=== PATIENT | female | born 1945 | race Caucasian/White ===

== ENCOUNTER → 2017-06-10 14:01 | Outpatient (CLI) | payer MEDICARE, SELFPAY ==
[2017-06-10 15:49] LABS: Absolute Lymphocyte Count 1.31 X10^3/ul (0.83-4.51); Basophil# 0.02 X10^3/uL; Basophil% 0.2 % (0-1); Eosinophil# 0.45 X10^3/uL; Eosinophils% 3.8 % (0-5); Hematocrit 39.6 % (37-47); Hemoglobin 12.9 g/dl (12.0-15.0); Lymphocyte # 1.31 X10^3/ul (4.0); Lymphocyte % 11.2 % (19-41); Mean Corp Hgb Conc 32.6 g/gl (32-36); Mean Corpuscular Hgb 29.7 pg (27.0-32.0); Mean Platelet Vol. 10.8 fl (6.2-12.0); Monocyte# 0.86 X10^3/uL; Monocyte% 7.4 % (0-10); Neutrophil # 9.03 X10^3/uL (2.7-7.7); Neutrophil % 77.1 % (47-70); Platelet Count 271 K/mm3 (150-450); RBC Distribution Width CV 14.5 % (11.6-14.6); RBC Distribution Width SD 47.6 fl (35.1-43.9); Red Blood Count 4.35 M/mm3 (4.2-5.4); White Blood Count 11.7 K/mm3 (4.4-11.0)
[2017-06-10 15:52] LABS: POSITIVE COUNT NO; POSITIVE DIFFERENTIAL NO; POSITIVE MORPHOLOGY NO
[2017-06-10 15:55] LABS: Erythrocyte Sedimentation Rate 38 mm/hr (0-30)
[2017-06-10 16:15] LABS: T3 Total - Triiodothyronine 0.82 ng/mL (0.6-1.81)
[2017-06-10 16:19] LABS: ALB/GLOB Ratio 0.8 RATIO (0.9-2.4); AST(SGOT) 18 U/L (15-37); Alanine Aminotransfer ALT/SGPT 28 U/L (13-56); Albumin, Serum 3.1 g/dL (3.2-5.0); Alkaline Phosphatase 57 U/L (45-117); Anion Gap 10 (5-15); BUN 18 mg/dL (7-18); BUN/Creat Ratio 19.3 RATIO (10-20); CRP 6.35 mg/L (0.0-3.0); Calcium,Total 8.9 mg/dL (8.5-10.1); Chloride 102 mmol/L (98-107); Creatinine, Serum 0.93 mg/dL (0.55-1.02); EST Glomerular Filtration Rate 63 mL/min (>60); Est Glom Filt Rate - Afr Amer 76 mL/min (>60); Globulin 4.1 g/dL (2.2-4.2); Glucose 157 mg/dL (74-106); Potassium 3.7 mmol/L (3.5-5.1); Protein, Total 7.2 g/dL (6.4-8.2); Sodium Level 140 mmol/L (136-145); T4 Free Direct 1.62 ng/dL (0.76-1.46); Thyroid Stim Hormone (TSH) 0.91 uIU/mL (0.358-3.74)
== END ==
PROVIDERS: Family Provider Family Medicine; PCP Family Medicine; Visit Provider Family Medicine
DX: E03.9 Hypothyroidism, unspecified (principal); M79.1 Myalgia; R53.81 Other malaise
CPT/HCPCS: 36415; 80053; 84439; 84443; 84480; 85025; 85652; 86140

== ENCOUNTER → 2017-06-25 10:49 | Outpatient (CLI) | payer MEDICARE, SELFPAY ==
--- NOTE | 2017-06-25 13:08 | RAD_ITS ---
STUDY: X-RAY - LUMBAR SPINE REASON FOR EXAM: Female, 72 years old. Weakness in back and legs for a few weeks. TECHNIQUE: 5 view(s) of the lumbar spine were obtained. COMPARISON: None FINDINGS: Exaggerated lumbar lordosis slight dextroscoliosis. Mild retrolisthesis of L2. Normal vertebral body height. Advanced disc narrowing and spondylitic endplate changes at L1-2 and L2-3. Mild degenerative disc changes at L3-4 and L4-5. Degenerative facet arthrosis at most levels bilaterally. Atherosclerotic vascular calcifications. RAD/L/S Spine Min 4 Views IMPRESSION: Exaggerated lower lumbar lordosis with a degenerative mild retrolisthesis of L2. Negative for fracture deformity. Advanced degenerative disc narrowing and spondylitic endplate changes at L1-2 and L2-3. Mild to moderate disc changes at L3-4 and L4-5. Degenerative facet joint changes at most lumbar levels. Electronically Signed: Kaylee Blevins MD at 23:11 EST , Service support ,
== END ==
PROVIDERS: Family Provider Family Medicine; PCP Family Medicine; Visit Provider Family Medicine
DX: M54.5 Low back pain (principal)
CPT/HCPCS: 72110

== ENCOUNTER → 2017-06-29 13:11 | Outpatient (CLI) | payer MEDICARE, SELFPAY | PROVIDERS: Family Provider Family Medicine; PCP Family Medicine; Visit Provider Family Medicine | DX: R30.0 Dysuria (principal) | CPT/HCPCS: 87086; 87088 ==

== ENCOUNTER → 2017-07-22 17:27 | Outpatient (CLI) | payer MEDICARE, SELFPAY ==
--- NOTE | 2017-07-22 17:43 | MRI_ITS ---
STUDY: MRI LUMBAR SPINE WITHOUT CONTRAST REASON FOR EXAM: Female, 72 years old. SHARP LOW BACK PAIN, BILATERAL LEG WEAKNESS AND THROBBING TECHNIQUE: Standardized fat and water weighted pulse sequences were obtained in the sagittal and axial planes. COMPARISON: None FINDINGS: T12-L1: Normal endplates. Normal disc height, hydration and morphology. Normal bilateral facet joints. Normal central canal and bilateral lateral recesses. Normal bilateral intervertebral neural foramina. Normal lumbar lordosis. There is no substantial scoliosis. Normal conus medullaris that terminates at the L1 level. L1-2: Endplate spondylosis. Decreased disc height and moderate circumferential disc bulge. Degenerative changes of the bilateral facet joints. Moderate narrowing of the central canal and mild narrowing of the bilateral intervertebral neural foramina. L2-3: Endplate spondylosis. Decreased disc height and moderate circumferential disc bulge. Degenerative changes of the bilateral facet joints. Moderate narrowing of the central canal and mild narrowing of the bilateral intervertebral neural foramina. L3-4: Endplate spondylosis. Decreased disc height and moderate circumferential disc bulge. Degenerative changes of the bilateral facet joints. Moderate narrowing of the central canal and mild narrowing of the bilateral intervertebral neural foramina. L4-5: Endplate spondylosis. Decreased disc height and moderate circumferential disc bulge. Degenerative changes of the bilateral facet joints. Moderate narrowing of the central canal and mild narrowing of the bilateral intervertebral neural foramina. L5-S1: Normal endplates. Normal disc height, hydration and morphology. Degenerative changes of the bilateral facet joints. Mild narrowing of the central canal and bilateral intervertebral neural foramina. Normal visualized sacral ala. Normal visualized paraspinous soft tissue structures. MRI/Spine Lumbar (Routine) IMPRESSION: Multilevel degenerative changes, as described above. Electronically Signed: Alannah Juarez MD at 6:43 EDT Tel , Service support ,
== END ==
PROVIDERS: Family Provider Family Medicine; PCP Family Medicine; Visit Provider Family Medicine
DX: M54.16 Radiculopathy, lumbar region (principal); R29.898 Other symptoms and signs involving the musculoskeletal system; M51.36 Other intervertebral disc degeneration, lumbar region
CPT/HCPCS: 72148

== ENCOUNTER → 2017-08-20 12:36 | Outpatient (CLI) | payer MEDICARE, SELFPAY ==
[2017-08-20 12:59] LABS: Absolute Lymphocyte Count 1.74 X10^3/ul (0.83-4.51); Absolute Neutrophil Count 8.9 X10^3/uL (2.0-7.7); Basophil# 0.04 X10^3/uL; Basophil% 0.3 % (0-1); Eosinophil# 1.29 X10^3/uL; Eosinophils% 10.1 % (0-5); Hematocrit 38.6 % (37-47); Hemoglobin 12.2 g/dl (12.0-15.0); Lymphocyte # 1.74 X10^3/ul (4.0); Lymphocyte % 13.6 % (19-41); Mean Corp Hgb Conc 31.6 g/gl (32-36); Mean Corpuscular Hgb 29.3 pg (27.0-32.0); Mean Corpuscular Volume 92.6 fL (81-99); Mean Platelet Vol. 9.9 fl (6.2-12.0); Monocyte# 0.79 X10^3/uL; Monocyte% 6.2 % (0-10); Neutrophil % 69.5 % (47-70); Platelet Count 363 K/mm3 (150-450); RBC Distribution Width CV 15.1 % (11.6-14.6); RBC Distribution Width SD 49.4 fl (35.1-43.9); Red Blood Count 4.17 M/mm3 (4.2-5.4); White Blood Count 12.8 K/mm3 (4.4-11.0)
[2017-08-20 13:09] LABS: POSITIVE COUNT NO; POSITIVE DIFFERENTIAL NO; POSITIVE MORPHOLOGY NO
[2017-08-20 13:26] LABS: ALB/GLOB Ratio 0.8 RATIO (0.9-2.4); AST(SGOT) 14 U/L (15-37); Alanine Aminotransfer ALT/SGPT 24 U/L (13-56); Albumin, Serum 3.1 g/dL (3.2-5.0); Alkaline Phosphatase 57 U/L (45-117); Anion Gap 6 (5-15); BUN 17 mg/dL (7-18); BUN/Creat Ratio 23.7 RATIO (10-20); Calcium,Total 9.1 mg/dL (8.5-10.1); Chloride 106 mmol/L (98-107); Creatinine, Serum 0.72 mg/dL (0.55-1.02); EST Glomerular Filtration Rate 85 mL/min (>60); Est Glom Filt Rate - Afr Amer 103 mL/min (>60); Globulin 3.8 g/dL (2.2-4.2); Glucose 163 mg/dL (74-106); Potassium 4.5 mmol/L (3.5-5.1); Protein, Total 6.9 g/dL (6.4-8.2); Sodium Level 142 mmol/L (136-145)
== END ==
PROVIDERS: Family Provider Family Medicine; PCP Family Medicine
DX: L30.9 Dermatitis, unspecified (principal); Z79.899 Other long term (current) drug therapy
CPT/HCPCS: 36415; 80053; 85025

== ENCOUNTER → 2017-09-10 15:27 | Outpatient (CLI) | payer MEDICARE, SELFPAY ==
[2017-09-10 16:30] LABS: Absolute Lymphocyte Count 1.24 X10^3/ul (0.83-4.51); Absolute Neutrophil Count 8.1 X10^3/uL (2.0-7.7); Basophil# 0.02 X10^3/uL; Basophil% 0.2 % (0-1); Eosinophil# 0.16 X10^3/uL; Eosinophils% 1.6 % (0-5); Hematocrit 38.1 % (37-47); Hemoglobin 12.2 g/dl (12.0-15.0); Lymphocyte # 1.24 X10^3/ul (4.0); Lymphocyte % 12.3 % (19-41); Mean Corpuscular Hgb 28.7 pg (27.0-32.0); Mean Corpuscular Volume 89.6 fL (81-99); Mean Platelet Vol. 10.5 fl (6.2-12.0); Monocyte# 0.59 X10^3/uL; Monocyte% 5.9 % (0-10); Neutrophil # 8.05 X10^3/uL (2.7-7.7); Neutrophil % 79.9 % (47-70); POSITIVE COUNT NO; POSITIVE DIFFERENTIAL NO; POSITIVE MORPHOLOGY NO; Platelet Count 318 K/mm3 (150-450); RBC Distribution Width CV 15.1 % (11.6-14.6); RBC Distribution Width SD 49.1 fl (35.1-43.9); Red Blood Count 4.25 M/mm3 (4.2-5.4); White Blood Count 10.1 K/mm3 (4.4-11.0)
[2017-09-10 16:54] LABS: ALB/GLOB Ratio 0.8 RATIO (0.9-2.4); AST(SGOT) 14 U/L (15-37); Alanine Aminotransfer ALT/SGPT 8 U/L (13-56); Albumin, Serum 3.2 g/dL (3.2-5.0); Alkaline Phosphatase 52 U/L (45-117); Anion Gap 11 (5-15); BUN 12 mg/dL (7-18); BUN/Creat Ratio 16.5 RATIO (10-20); Chloride 105 mmol/L (98-107); Creatinine, Serum 0.73 mg/dL (0.55-1.02); EST Glomerular Filtration Rate 84 mL/min (>60); Est Glom Filt Rate - Afr Amer 101 mL/min (>60); Globulin 3.8 g/dL (2.2-4.2); Glucose 181 mg/dL (74-106); Magnesium 1.6 mg/dL (1.6-2.6); Potassium 3.3 mmol/L (3.5-5.1); Sodium Level 141 mmol/L (136-145)
== END ==
PROVIDERS: Family Provider Family Medicine; PCP Family Medicine
DX: L12.0 Bullous pemphigoid (principal); Z79.899 Other long term (current) drug therapy
CPT/HCPCS: 36415; 80053; 83735; 85025

== ENCOUNTER → 2017-12-14 16:08 | Outpatient (CLI) | payer MEDICARE, SELFPAY ==
[2017-12-14 17:14] LABS: Absolute Lymphocyte Count 1.89 X10^3/ul (0.83-4.51); Absolute Neutrophil Count 13.2 X10^3/uL (2.0-7.7); Basophil# 0.01 X10^3/uL; Basophil% 0.1 % (0-1); Eosinophil# 0.06 X10^3/uL; Eosinophils% 0.4 % (0-5); Hematocrit 41.6 % (37-47); Lymphocyte # 1.89 X10^3/ul (4.0); Lymphocyte % 11.7 % (19-41); Mean Corp Hgb Conc 31.3 g/gl (32-36); Mean Corpuscular Hgb 28.8 pg (27.0-32.0); Mean Platelet Vol. 10.6 fl (6.2-12.0); Monocyte# 0.85 X10^3/uL; Monocyte% 5.3 % (0-10); Neutrophil # 13.22 X10^3/uL (2.7-7.7); Neutrophil % 81.9 % (47-70); Platelet Count 294 K/mm3 (150-450); RBC Distribution Width CV 14.5 % (11.6-14.6); RBC Distribution Width SD 48.5 fl (35.1-43.9); Red Blood Count 4.52 M/mm3 (4.2-5.4); White Blood Count 16.1 K/mm3 (4.4-11.0)
[2017-12-14 17:15] LABS: POSITIVE COUNT NO; POSITIVE DIFFERENTIAL NO; POSITIVE MORPHOLOGY NO
[2017-12-14 17:27] LABS: ALB/GLOB Ratio 0.9 RATIO (0.9-2.4); AST(SGOT) 7 U/L (15-37); Alanine Aminotransfer ALT/SGPT 23 U/L (13-56); Albumin, Serum 3.1 g/dL (3.2-5.0); Alkaline Phosphatase 48 U/L (45-117); Anion Gap 15 (5-15); BUN 17 mg/dL (7-18); BUN/Creat Ratio 16.5 RATIO (10-20); Calcium,Total 9.2 mg/dL (8.5-10.1); Chloride 104 mmol/L (98-107); Creatinine, Serum 1.03 mg/dL (0.55-1.02); EST Glomerular Filtration Rate 56 mL/min (>60); Est Glom Filt Rate - Afr Amer 68 mL/min (>60); Globulin 3.5 g/dL (2.2-4.2); Glucose 281 mg/dL (74-106); Potassium 3.7 mmol/L (3.5-5.1); Protein, Total 6.6 g/dL (6.4-8.2); Sodium Level 142 mmol/L (136-145)
== END ==
PROVIDERS: Family Provider Family Medicine; PCP Family Medicine; Visit Provider Family Medicine
DX: L12.0 Bullous pemphigoid (principal); E11.9 Type 2 diabetes mellitus without complications; E78.00 Pure hypercholesterolemia, unspecified; Z79.899 Other long term (current) drug therapy
CPT/HCPCS: 36415; 80053; 85025

== ENCOUNTER → 2018-01-15 15:24 | Outpatient (CLI) | payer MEDICARE, SELFPAY ==
[2018-01-15 16:00] LABS: Absolute Lymphocyte Count 0.92 X10^3/ul (0.83-4.51); Absolute Neutrophil Count 10.2 X10^3/uL (2.0-7.7); Basophil# 0.01 X10^3/uL; Basophil% 0.1 % (0-1); Hematocrit 39.6 % (37-47); Hemoglobin 12.6 g/dl (12.0-15.0); Lymphocyte # 0.92 X10^3/ul (4.0); Lymphocyte % 7.9 % (19-41); Mean Corp Hgb Conc 31.8 g/gl (32-36); Mean Corpuscular Hgb 29.4 pg (27.0-32.0); Mean Corpuscular Volume 92.3 fL (81-99); Mean Platelet Vol. 10.1 fl (6.2-12.0); Monocyte# 0.52 X10^3/uL; Monocyte% 4.5 % (0-10); Neutrophil # 10.17 X10^3/uL (2.7-7.7); Neutrophil % 87.1 % (47-70); Platelet Count 355 K/mm3 (150-450); RBC Distribution Width CV 14.1 % (11.6-14.6); Red Blood Count 4.29 M/mm3 (4.2-5.4); White Blood Count 11.7 K/mm3 (4.4-11.0)
[2018-01-15 16:01] LABS: POSITIVE COUNT NO; POSITIVE DIFFERENTIAL NO; POSITIVE MORPHOLOGY NO
[2018-01-15 16:08] LABS: AST(SGOT) 19 U/L (15-37); Alanine Aminotransfer ALT/SGPT 19 U/L (13-56); Albumin, Serum 3.5 g/dL (3.2-5.0); Alkaline Phosphatase 49 U/L (45-117); Anion Gap 16 (5-15); BUN 20 mg/dL (7-18); BUN/Creat Ratio 14.6 RATIO (10-20); Calcium,Total 9.5 mg/dL (8.5-10.1); Chloride 104 mmol/L (98-107); Cholesterol 168 mg/dL (200); Creatinine, Serum 1.37 mg/dL (0.55-1.02); EST Glomerular Filtration Rate 40 mL/min (>60); Est Glom Filt Rate - Afr Amer 49 mL/min (>60); Globulin 3.5 g/dL (2.2-4.2); Glucose 236 mg/dL (74-106); High Density Lipoprotein 57 mg/dL; Potassium 3.8 mmol/L (3.5-5.1); Sodium Level 143 mmol/L (136-145); Triglycerides 134 mg/dL; Very Low Density Lipoprotein 27 mg/dL (5-40)
== END ==
PROVIDERS: Family Provider Family Medicine; PCP Family Medicine
DX: E78.00 Pure hypercholesterolemia, unspecified (principal); E11.9 Type 2 diabetes mellitus without complications; L12.0 Bullous pemphigoid; Z79.899 Other long term (current) drug therapy
CPT/HCPCS: 36415; 80053; 80061; 85025

== ENCOUNTER → 2018-02-17 15:21 | Outpatient (CLI) | payer MEDICARE, SELFPAY ==
[2018-02-17 17:17] LABS: Absolute Lymphocyte Count 2.28 X10^3/ul (0.83-4.51); Absolute Neutrophil Count 8.5 X10^3/uL (2.0-7.7); Basophil# 0.03 X10^3/uL; Basophil% 0.3 % (0-1); Eosinophil# 0.05 X10^3/uL; Eosinophils% 0.4 % (0-5); Hematocrit 38.4 % (37-47); Hemoglobin 11.9 g/dl (12.0-15.0); Lymphocyte # 2.28 X10^3/ul (4.0); Lymphocyte % 19.5 % (19-41); Mean Corpuscular Hgb 29.2 pg (27.0-32.0); Mean Corpuscular Volume 94.3 fL (81-99); Mean Platelet Vol. 10.8 fl (6.2-12.0); Monocyte# 0.75 X10^3/uL; Monocyte% 6.4 % (0-10); Neutrophil # 8.51 X10^3/uL (2.7-7.7); Neutrophil % 72.9 % (47-70); Platelet Count 367 K/mm3 (150-450); RBC Distribution Width CV 13.4 % (11.6-14.6); RBC Distribution Width SD 44.3 fl (35.1-43.9); Red Blood Count 4.07 M/mm3 (4.2-5.4); White Blood Count 11.7 K/mm3 (4.4-11.0)
[2018-02-17 17:18] LABS: POSITIVE COUNT NO; POSITIVE DIFFERENTIAL NO; POSITIVE MORPHOLOGY NO
[2018-02-17 17:55] LABS: T3 Total - Triiodothyronine 0.86 ng/mL (0.6-1.81)
[2018-02-17 18:02] LABS: ALB/GLOB Ratio 0.9 RATIO (0.9-2.4); Albumin, Serum 3.2 g/dL (3.2-5.0); BUN 17 mg/dL (7-18); BUN/Creat Ratio 19.7 RATIO (10-20); Creatinine, Serum 0.86 mg/dL (0.55-1.02); EST Glomerular Filtration Rate 69 mL/min (>60); Est Glom Filt Rate - Afr Amer 83 mL/min (>60); Globulin 3.5 g/dL (2.2-4.2); Glucose 155 mg/dL (74-106); Protein, Total 6.7 g/dL (6.4-8.2)
[2018-02-17 18:03] LABS: AST(SGOT) 10 U/L (15-37); Alanine Aminotransfer ALT/SGPT 11 U/L (13-56); Alkaline Phosphatase 51 U/L (45-117); Anion Gap 11 (5-15); Calcium,Total 9.2 mg/dL (8.5-10.1); Chloride 105 mmol/L (98-107); Potassium 4.2 mmol/L (3.5-5.1); Sodium Level 142 mmol/L (136-145); T4 Free Direct 1.21 ng/dL (0.76-1.46); Thyroid Stim Hormone (TSH) 0.67 uIU/mL (0.358-3.74)
== END ==
PROVIDERS: Family Provider Family Medicine; PCP Family Medicine; Referring Provider Family Medicine; Visit Provider Family Medicine
DX: Z79.899 Other long term (current) drug therapy (principal)
CPT/HCPCS: 36415; 80053; 84439; 84443; 84480; 85025

== ENCOUNTER 2018-03-23 15:24 | Outpatient (RCR) | payer MEDICARE, SELFPAY ==
[2018-03-23 16:52] LABS: Absolute Lymphocyte Count 2.13 X10^3/ul (0.83-4.51); Absolute Neutrophil Count 9.5 X10^3/uL (2.0-7.7); Basophil# 0.03 X10^3/uL; Basophil% 0.2 % (0-1); Eosinophil# 0.09 X10^3/uL; Eosinophils% 0.7 % (0-5); Hematocrit 37.8 % (37-47); Hemoglobin 11.8 g/dl (12.0-15.0); Lymphocyte # 2.13 X10^3/ul (4.0); Lymphocyte % 16.7 % (19-41); Mean Corp Hgb Conc 31.2 g/gl (32-36); Mean Corpuscular Hgb 29.5 pg (27.0-32.0); Mean Corpuscular Volume 94.5 fL (81-99); Mean Platelet Vol. 10.8 fl (6.2-12.0); Monocyte# 0.98 X10^3/uL; Monocyte% 7.7 % (0-10); Neutrophil # 9.46 X10^3/uL (2.7-7.7); Neutrophil % 74.4 % (47-70); Platelet Count 319 K/mm3 (150-450); RBC Distribution Width CV 13.5 % (11.6-14.6); RBC Distribution Width SD 44.8 fl (35.1-43.9); White Blood Count 12.7 K/mm3 (4.4-11.0)
[2018-03-23 17:00] LABS: POSITIVE COUNT NO; POSITIVE DIFFERENTIAL NO; POSITIVE MORPHOLOGY NO
[2018-03-23 17:28] LABS: AST(SGOT) 7 U/L (15-37); Alanine Aminotransfer ALT/SGPT 16 U/L (13-56); Albumin, Serum 3.3 g/dL (3.2-5.0); Alkaline Phosphatase 51 U/L (45-117); Anion Gap 10 (5-15); BUN 19 mg/dL (7-18); BUN/Creat Ratio 19.6 RATIO (10-20); Calcium,Total 9.3 mg/dL (8.5-10.1); Chloride 105 mmol/L (98-107); Creatinine, Serum 0.97 mg/dL (0.55-1.02); EST Glomerular Filtration Rate 60 mL/min (>60); Est Glom Filt Rate - Afr Amer 73 mL/min (>60); Globulin 3.4 g/dL (2.2-4.2); Glucose 186 mg/dL (74-106); Potassium 4.2 mmol/L (3.5-5.1); Protein, Total 6.7 g/dL (6.4-8.2); Sodium Level 143 mmol/L (136-145)
== END 2018-03-23 16:00 | disposition home or self-care (01) ==
LOC: LAB 15:24
PROVIDERS: Family Provider Family Medicine; PCP Family Medicine
DX: L12.0 Bullous pemphigoid (principal); Z79.899 Other long term (current) drug therapy
CPT/HCPCS: 36415; 80053; 85025

== ENCOUNTER 2018-05-22 10:04 | Outpatient (RCR) | payer MEDICARE, SELFPAY ==
[2018-05-22 10:50] LABS: Absolute Lymphocyte Count 2.82 X10^3/ul (0.83-4.51); Absolute Neutrophil Count 8.1 X10^3/uL (2.0-7.7); Basophil# 0.01 X10^3/uL; Basophil% 0.1 % (0-1); Eosinophil# 0.08 X10^3/uL; Eosinophils% 0.7 % (0-5); Hematocrit 39.1 % (37-47); Hemoglobin 12.1 g/dl (12.0-15.0); Lymphocyte # 2.82 X10^3/ul (4.0); Lymphocyte % 23.8 % (19-41); Mean Corp Hgb Conc 30.9 g/gl (32-36); Mean Corpuscular Hgb 28.7 pg (27.0-32.0); Mean Corpuscular Volume 92.9 fL (81-99); Mean Platelet Vol. 10.2 fl (6.2-12.0); Monocyte# 0.83 X10^3/uL; Neutrophil # 8.06 X10^3/uL (2.7-7.7); Neutrophil % 67.9 % (47-70); Platelet Count 318 K/mm3 (150-450); RBC Distribution Width CV 13.5 % (11.6-14.6); RBC Distribution Width SD 45.6 fl (35.1-43.9); Red Blood Count 4.21 M/mm3 (4.2-5.4); White Blood Count 11.9 K/mm3 (4.4-11.0)
[2018-05-22 10:51] LABS: POSITIVE COUNT NO; POSITIVE DIFFERENTIAL NO; POSITIVE MORPHOLOGY NO
[2018-05-22 11:13] LABS: AST(SGOT) 12 U/L (15-37); Alanine Aminotransfer ALT/SGPT 19 U/L (13-56); Albumin, Serum 3.3 g/dL (3.2-5.0); Alkaline Phosphatase 49 U/L (45-117); Anion Gap 7 (5-15); BUN 17 mg/dL (7-18); BUN/Creat Ratio 19.6 RATIO (10-20); Chloride 104 mmol/L (98-107); Creatinine, Serum 0.87 mg/dL (0.55-1.02); EST Glomerular Filtration Rate 68 mL/min (>60); Est Glom Filt Rate - Afr Amer 83 mL/min (>60); Globulin 3.4 g/dL (2.2-4.2); Glucose 104 mg/dL (74-106); Potassium 4.1 mmol/L (3.5-5.1); Protein, Total 6.7 g/dL (6.4-8.2); Sodium Level 139 mmol/L (136-145)
== END 2018-06-17 13:57 | disposition home or self-care (01) ==
LOC: LAB 10:04
PROVIDERS: Family Provider Family Medicine; PCP Family Medicine
DX: L12.0 Bullous pemphigoid (principal); Z79.899 Other long term (current) drug therapy
CPT/HCPCS: 36415; 80053; 85025

== ENCOUNTER → 2018-07-31 08:07 | Outpatient (CLI) | payer MEDICARE, SELFPAY ==
[2018-07-31 09:45] LABS: Absolute Lymphocyte Count 1.75 X10^3/ul (0.83-4.51); Absolute Neutrophil Count 5.5 X10^3/uL (2.0-7.7); Basophil# 0.02 X10^3/uL; Basophil% 0.2 % (0-1); Eosinophils% 1.2 % (0-5); Hematocrit 36.6 % (37-47); Hemoglobin 11.4 g/dl (12.0-15.0); Lymphocyte # 1.75 X10^3/ul (4.0); Lymphocyte % 21.7 % (19-41); Mean Corp Hgb Conc 31.1 g/gl (32-36); Mean Corpuscular Hgb 28.1 pg (27.0-32.0); Mean Corpuscular Volume 90.1 fL (81-99); Monocyte# 0.63 X10^3/uL; Monocyte% 7.8 % (0-10); Neutrophil # 5.54 X10^3/uL (2.7-7.7); POSITIVE COUNT NO; POSITIVE DIFFERENTIAL NO; POSITIVE MORPHOLOGY NO; Platelet Count 298 K/mm3 (150-450); RBC Distribution Width CV 13.5 % (11.6-14.6); Red Blood Count 4.06 M/mm3 (4.2-5.4); White Blood Count 8.1 K/mm3 (4.4-11.0)
[2018-07-31 10:04] LABS: Microalbumin:Creatinine Ratio 129.5 mg/g CRE (<30 mg/g CRE)
[2018-07-31 10:26] LABS: Hemoglobin A1c 6.6 % (4.2-6.3)
[2018-07-31 10:37] LABS: AST(SGOT) 11 U/L (15-37); Alanine Aminotransfer ALT/SGPT 17 U/L (13-56); Albumin, Serum 3.4 g/dL (3.2-5.0); Alkaline Phosphatase 48 U/L (45-117); Anion Gap 9 (5-15); BUN 17 mg/dL (7-18); BUN/Creat Ratio 17.2 RATIO (10-20); Calcium,Total 8.8 mg/dL (8.5-10.1); Chloride 108 mmol/L (98-107); Cholesterol 129 mg/dL (200); Creatinine, Serum 0.99 mg/dL (0.55-1.02); EST Glomerular Filtration Rate 59 mL/min (>60); Est Glom Filt Rate - Afr Amer 71 mL/min (>60); Globulin 3.3 g/dL (2.2-4.2); Glucose 101 mg/dL (74-106); High Density Lipoprotein 48 mg/dL; Potassium 3.7 mmol/L (3.5-5.1); Protein, Total 6.7 g/dL (6.4-8.2); Sodium Level 142 mmol/L (136-145); T4 Free Direct 1.11 ng/dL (0.76-1.46); Thyroid Stim Hormone (TSH) 0.78 uIU/mL (0.358-3.74); Triglycerides 143 mg/dL; Very Low Density Lipoprotein 29 mg/dL (5-40)
== END ==
PROVIDERS: Family Provider Family Medicine; PCP Family Medicine
DX: E11.9 Type 2 diabetes mellitus without complications (principal); E03.9 Hypothyroidism, unspecified; R42 Dizziness and giddiness; E78.00 Pure hypercholesterolemia, unspecified; L12.0 Bullous pemphigoid; Z79.899 Other long term (current) drug therapy; S00.83XA Contusion of other part of head, initial encounter
CPT/HCPCS: 36415; 80053; 80061; 82043; 82570; 83036; 84439; 84443; 85025

== ENCOUNTER → 2018-09-20 | Outpatient (CLI) | payer MEDICARE, SELFPAY ==
[2018-09-20 15:41] LABS: Mucous, Urine 0 SEEN /hpf (<or=2+)
[2018-09-20 16:27] LABS: Color, Urine Straw (Yellow); Glucose, Dipstick Normal (Normal); Ketone-Dipstick Negative (Negative); Leukocyte Esterase-Dipstick 500 /ul (Negative); Nitrite-Dipstick Positive (Negative); Occult Blood-Urine 150 /ul (Negative); Protein-Dipstick 100 mg/dl (Negative); Urine Bilirubin Dipstick Negative (Negative); Urine Clarity Cloudy (Clear); Urine Urobilinogen Normal (Normal)
[2018-09-20 16:43] LABS: Bacteria 3+ /hpf (None Seen); Red Blood Cells-Urine 10-25 SEEN /hpf (0-5); Squamous Epithelial Cells - UA 0-5 SEEN /hpf (5-10); White Blood Cells >100 SEEN /hpf (0-5)
== END | disposition home or self-care (01) ==
LOC: LABSPEC 15:36
PROVIDERS: Family Provider Family Medicine; PCP Family Medicine; Referring Provider Family Medicine; Visit Provider Family Medicine
DX: R32 Unspecified urinary incontinence (principal); R30.0 Dysuria
CPT/HCPCS: 81001; 87077; 87086; 87088; 87186

== ENCOUNTER → 2018-09-30 14:56 | Outpatient (CLI) | payer MEDICARE, SELFPAY ==
[2018-09-30 15:28] LABS: Color, Urine Yellow (Yellow); Glucose, Dipstick Normal (Normal); Ketone-Dipstick Negative (Negative); Leukocyte Esterase-Dipstick 100 /ul (Negative); Nitrite-Dipstick Negative (Negative); Occult Blood-Urine 10 /ul (Negative); Protein-Dipstick Negative (Negative); Specific Gravity, Urine 1.005 (1.002-1.030); Urine Bilirubin Dipstick Negative (Negative); Urine Clarity Sl. Cloudy (Clear); Urine Urobilinogen Normal (Normal)
== END ==
PROVIDERS: Family Provider Family Medicine; PCP Family Medicine; Referring Provider Family Medicine; Visit Provider Family Medicine
DX: N39.0 Urinary tract infection, site not specified (principal)
CPT/HCPCS: 81002; 87086; 87088

== ENCOUNTER → 2018-10-14 15:48 | Outpatient (CLI) | payer MEDICARE, SELFPAY ==
[2018-10-14 17:29] LABS: Absolute Lymphocyte Count 1.49 X10^3/ul (0.83-4.51); Absolute Neutrophil Count 3.4 X10^3/uL (2.0-7.7); Basophil# 0.02 X10^3/uL; Basophil% 0.4 % (0-1); Eosinophil# 0.14 X10^3/uL; Eosinophils% 2.5 % (0-5); Hematocrit 37.5 % (37-47); Hemoglobin 11.9 g/dl (12.0-15.0); Lymphocyte # 1.49 X10^3/ul (4.0); Lymphocyte % 26.5 % (19-41); Mean Corp Hgb Conc 31.7 g/gl (32-36); Mean Corpuscular Hgb 27.7 pg (27.0-32.0); Mean Corpuscular Volume 87.4 fL (81-99); Mean Platelet Vol. 11.1 fl (6.2-12.0); Monocyte# 0.55 X10^3/uL; Monocyte% 9.8 % (0-10); Neutrophil # 3.41 X10^3/uL (2.7-7.7); Neutrophil % 60.6 % (47-70); Platelet Count 261 K/mm3 (150-450); RBC Distribution Width SD 40.2 fl (35.1-43.9); Red Blood Count 4.29 M/mm3 (4.2-5.4); White Blood Count 5.6 K/mm3 (4.4-11.0)
[2018-10-14 17:32] LABS: POSITIVE COUNT NO; POSITIVE DIFFERENTIAL NO; POSITIVE MORPHOLOGY NO
[2018-10-14 18:04] LABS: ALB/GLOB Ratio 1.1 RATIO (0.9-2.4); AST(SGOT) 10 U/L (15-37); Alanine Aminotransfer ALT/SGPT 16 U/L (13-56); Albumin, Serum 3.4 g/dL (3.2-5.0); Alkaline Phosphatase 55 U/L (45-117); Anion Gap 10 (5-15); BUN 17 mg/dL (7-18); BUN/Creat Ratio 20.6 RATIO (10-20); Calcium,Total 9.3 mg/dL (8.5-10.1); Chloride 108 mmol/L (98-107); Creatinine, Serum 0.82 mg/dL (0.55-1.02); EST Glomerular Filtration Rate 72 mL/min (>60); Est Glom Filt Rate - Afr Amer 88 mL/min (>60); Globulin 3.2 g/dL (2.2-4.2); Glucose 122 mg/dL (74-106); Potassium 3.8 mmol/L (3.5-5.1); Protein, Total 6.6 g/dL (6.4-8.2); Sodium Level 144 mmol/L (136-145)
== END ==
PROVIDERS: Family Provider Family Medicine; PCP Family Medicine
DX: L12.0 Bullous pemphigoid (principal); Z91.81 History of falling; Z79.899 Other long term (current) drug therapy
CPT/HCPCS: 36415; 80053; 85025

== ENCOUNTER → 2019-03-15 14:50 | Outpatient (CLI) | payer MEDICARE, SELFPAY ==
[2019-03-15 15:55] LABS: Absolute Lymphocyte Count 2.05 X10^3/uL (0.83-4.51); Absolute Neutrophil Count 3.8 X10^3/uL (2.0-7.7); Basophil# 0.03 X10^3/uL; Basophil% 0.4 % (0-1); Eosinophil# 0.14 X10^3/uL; Eosinophils% 2.1 % (0-5); Hematocrit 37.6 % (37-47); Hemoglobin 11.8 g/dL (12.0-15.0); Lymphocyte # 2.05 X10^3/ul (4.0); Lymphocyte % 30.6 % (19-41); Mean Corp Hgb Conc 31.4 g/dL (32-36); Mean Corpuscular Hgb 28.6 pg (27.0-32.0); Mean Platelet Vol. 10.3 fl (6.2-12.0); Monocyte# 0.62 X10^3/uL; Monocyte% 9.3 % (0-10); NRBC Flagged by Analyzer 0 % (0-5); Neutrophil # 3.83 X10^3/uL (2.7-7.7); Neutrophil % 57.3 % (47-70); Platelet Count 267 K/mm3 (150-450); RBC Distribution Width CV 13.3 % (11.6-14.6); RBC Distribution Width SD 44.4 fl (35.1-43.9); Red Blood Count 4.13 M/mm3 (4.2-5.4); White Blood Count 6.7 K/mm3 (4.4-11.0)
[2019-03-15 16:13] LABS: ALB/GLOB Ratio 1.1 RATIO (0.9-2.4); AST(SGOT) 8 U/L (15-37); Alanine Aminotransfer ALT/SGPT 12 U/L (13-56); Albumin, Serum 3.6 g/dL (3.2-5.0); Alkaline Phosphatase 53 U/L (45-117); Anion Gap 8 (5-15); BUN 27 mg/dL (7-18); Calcium,Total 9.4 mg/dL (8.5-10.1); Chloride 108 mmol/L (98-107); Creatinine, Serum 0.97 mg/dL (0.55-1.02); EST Glomerular Filtration Rate 60 mL/min (>60); Est Glom Filt Rate - Afr Amer 73 mL/min (>60); Globulin 3.3 g/dL (2.2-4.2); Glucose 139 mg/dL (74-106); Potassium 4.3 mmol/L (3.5-5.1); Protein, Total 6.9 g/dL (6.4-8.2); Sodium Level 142 mmol/L (136-145)
== END ==
PROVIDERS: Family Provider Family Medicine; PCP Family Medicine
DX: L12.0 Bullous pemphigoid (principal); S00.83XA Contusion of other part of head, initial encounter; Z79.899 Other long term (current) drug therapy
CPT/HCPCS: 36415; 80053; 85025

== ENCOUNTER 2019-08-20 10:56 | Emergency (ER) | payer MEDICARE, SELFPAY ==
[2019-08-20 10:57] VITALS: BP 137/90; PULSE 73; RESP 16; TEMP 36.8; O2SAT 97; BMI 29.2
--- NOTE | 2019-08-20 11:20 | RAD_ITS ---
STUDY: X-RAY CHEST REASON FOR EXAM: Female, 74 years old. Cough TECHNIQUE: Single AP portable view of the chest. COMPARISON: January 12, 2017 chest x-ray FINDINGS: There is improved aeration of the lungs since prior study. There is trace interstitial prominence in the left lung base suggestive of platelike atelectasis worse or scarring. There is no demonstrated pleural abnormality. Sternal cerclage wires and vascular clips are present from a prior sternotomy and coronary artery bypass graft procedure (CABG). Normal mediastinum and mercy. Normal visualized pulmonary arteries. Normal visualized aortic arch and descending thoracic aorta. Normal visualized thoracic spine. Normal visualized ribs, clavicles, and shoulders. There is no demonstrated abnormality of the visualized soft tissue structures of the upper abdomen. RAD/Chest 1 View (Portable) IMPRESSION: Improved aeration of the lungs since prior study minimal left lower lobe atelectasis. Status post CABG. Electronically Signed: Kym Brasher MD at 12:13 EDT Tel , Service support ,
--- NOTE | 2019-08-20 11:20 | CT_ITS ---
STUDY: CT BRAIN WITHOUT CONTRAST REASON FOR EXAM: Female, 74 years old. AMS RADIATION DOSAGE (If Supplied By Facility): CTDIvol = ( ) mGy, DLP = ( ) mGycm TECHNIQUE: Transaxial CT imaging of the brain was performed without administration of intravenous contrast material. Individualized dose optimization techniques were used for this CT. COMPARISON: None. FINDINGS: There is cerebral atrophy with widening of the extra-axial spaces and ventricular dilatation. There are areas of decreased attenuation within the white matter tracts of the supratentorial brain, consistent with microvascular disease changes. There is no intracranial hemorrhage. There are no findings of an acute ischemic infarction. Normal soft tissue structures. Normal visualized paranasal sinuses. CT/Brain/Head without Contrast IMPRESSION: Chronic involutional changes of the brain. Electronically Signed: Kiara Gonzales MD at 12:03 EDT Tel , Service support ,
--- NOTE | 2019-08-20 11:21 | EKG12_ITS ---
Test Reason : Blood Pressure : / mmHG Vent. Rate : 053 BPM Atrial Rate : 053 BPM P-R Int : 176 ms QRS Dur : 086 ms QT Int : 508 ms P-R-T Axes : 044 -14 -05 degrees QTc Int : 476 ms Sinus bradycardia with sinus arrhythmia Nonspecific T wave abnormality Prolonged QT Abnormal ECG Confirmed by WISAM LEIGH, COLIN ([id number]), editorial specialist TITA MANZANO ([id number]) on 08/23/2019 11:07:48 AM Referred By: ZAKI/ALTON Confirmed By:COLIN JOEL MD
--- NOTE | 2019-08-20 11:22 | ED.DCSUM_ITS ---
History of Present Illness <Kasandra Pepe - Last Filed: 08/20/19 14:19> Informant: Patient, Family, Significant Other Onset: Yesterday Context: Gradual Onset Conflict: Family Timing: Continuous Current Severity: Severe Maximum Severity: Severe Worsened by: Situational factors Relieved by: Nothing Associated Symptoms: Confusion, Paranoia, Auditory Hallucinations. Negative for: Suicidal Thoughts Narrative: 74-year-old female past medical history of hypertension, hyperlipidemia, type 2 diabetes mellitus, bullous pemphigus and hypothyroidism Zentz to the emergency department with confusion. Brought in by her . Patient has been confused for the last several days worsening since last night. She has been paranoid thinking people are spying on their apartment and looking into their apartment. She thinks that she went to her neighbor's house last night where they used probes to check her for cancer. She tells me she has 2 weeks to live. notes increased confusion. No thoughts of homicide or suicide. She has not attempted to harm her or herself. She has no history of similar. No falls injuries or traumas. Rest of review of systems at this time are negative Prior similar symptoms: No Recent Illness/Hospitalization: No <Gabriel Perez - Last Filed: 08/20/19 14:33> Chief Complaint: Mental Health Past Medical History <Kasandra Pepe - Last Filed: 08/20/19 14:19> Prior records reviewed: Yes Past Medical History: - - Hypertension, hyperlipidemia, type 2 diabetes mellitu s, coronary artery disease, hypothyroidism, bullous pemphigus Surgical History: coronary bypass surgery Lives: With Family Smoking Status: Former smoker Alcohol: None Drugs: None <Gabriel Perez - Last Filed: 08/20/19 14:33> - Allergies and Home Meds Allergies/Adverse Reactions: Allergies No Known Allergies Allergy (Verified 08/20/19 11:02) Primary Care Physician: Jeni Estrella DO [Primary Care Provider] - Review of Systems All systems negative except as indicated General: Denies: Chills, Fever, Malaise Eyes: Denies: Visual changes - bilaterally, Blurred Vision - bilaterally, Diplopia ENT: Denies: Rhinorrhea, Sore throat Cardiovascular: Denies: Chest pain, Palpitations, Heart racing Respiratory: Denies: Dyspnea, Cough, Sputum Gastrointestinal: Denies: Abdominal pain, Nausea, Vomiting, Diarrhea Genitourinary: Denies: Dysuria, Hematuria, Frequency Musculoskeletal: Denies: Myalgias, Arthralgias, Neck pain, Back pain Skin: Denies: Rash, Abscess, Abrasions, Wounds Neurological: Denies: Headache, Weakness, Parasthesia, Numbness Psych: Reports: - - Paranoia confusion delusions hallucinations. Denies: Depression, Anxiety, Suicidal thoughts, Suicidal ideations <Gabriel Perez - Last Filed: 08/20/19 14:33> Physical Exam Vital Signs/Narrative: Vital Signs Temp Pulse Resp BP Pulse Ox 08/20/19 12:06 18 08/20/19 10:57 98.2 F 73 16 137/90 H 97 <Kasandra Pepe - Last Filed: 08/20/19 14:19> Vital Signs/Narrative: Vital Signs Temp Pulse Resp BP Pulse Ox 08/20/19 10:57 98.2 F 73 16 137/90 H 97 Inital Vital Signs reviewed: Yes General: Well nourished, Well developed Head: Normocephalic, Atraumatic Eyes: Perrl, EOMI ENT: Moist mucous membranes Neck: Supple, Nontender, No lymphadenopathy, No JVD Cardiovascular: Regular rate, Regular rhythm Respiratory: No distress, CTA bilaterally, Chest nontender Abdomen: Soft, Nontender, Nondistended, Normal bowel sounds, No masses Back: Nontender, Normal Inspection Extremities: Nontender, No Edema Skin: Normal color, No rash Neurological: Alert, Normal Strength, Normal Sensation, Normal Gait, - - Patient knows her name where she is in the month but was unable to tell me the year or who the president is. Psych: Normal Speech Pattern, No suicidal or homicidal ideation, Normal Stable Appropriate Affect, Incoherent thoughts, Hallucinations, Delusions, Paranoid Ideation. Negative for: Labile, Blunted Affect, Flat Affect, Restricted Affect, Pressured Speech, Poverty of Speech, Flight of Ideas, Suicidal thoughts <Gabriel Perez - Last Filed: 08/20/19 14:33> Diagnostic/Tx/Re-eval Patient seen and evaluated with physicians fundraising assistant. Patient independently examined and interviewed. Patient brought in by secondary to increased confusion and halluci nations. Patient had some mild baseline confusion however symptoms significantly worsened 4 days ago when they moved into a temporary apartment. Patient believes that she was abducted last night by her neighbors who were probing her for cancer. No reported recent falls or injuries. No reported infectious symptoms. Patient sitting upright in bed no acute distress. Head and neck examination unremarkable. Heart regular rate and rhythm. Lung sounds are clear. Abdomen is soft and nontender. Neuro exam reveals no focal deficits. Psychiatric examination does reveal delusions. No suicidal or homicidal ideation. Medical screening was performed and does not reveal any acute cause of her symptoms. Patient would benefit from neuropsych evaluation. Arrangements are being made for transfer. <Kasandra Pepe - Last Filed: 08/20/19 14:19> Chest X-Ray - ED: 1 View, Read by ED Physician, Read by Radiologist, No Acute Disease - Rhythm Strip Rhythm Strip: Sinus Rhythm Rate: 53 Ectopy: None - EKG Initial EKG Interpretation: Sinus Rhythm, No Acute Injury Pattern Prior: Unchanged Restraints applied: No After evaluating the patient I spoke with the patient's who states that the patient has been having both visual and auditory hallucinations for the last 4 days since they moved into a temporary apartment while their apartment is being cleaned after they found mold in it. He states that last evening patient told him that she was abducted by the neighbors and they used probes on her to give her cancer and he states she was saying similar things this morning which prompted him to bring her here for evaluation. He states the patient has had similar symptoms 3 years ago when she was initially diagnosed with bullous pemphigus and was on a short course of Resporal at that time but due to side effects that the described as shaking this was discontinued and he states that she has not had any hallucinations since that time. Patient's lab oratory work-up was unremarkable including a urinalysis. CT brain was unremarkable as well as was her chest x-ray. We do feel the patient would benefit from a geriatric psychiatric evaluation. is agreeable with this. Patient was discussed with her social sciences instructor Sandra who spoke with multiple places that were either not taking patients secondary to the coronavirus or were full but she did speak with [facility] in [place] who agreed to accept the patient. [place] was completed. Laboratory Tests 08/20/19 08/20/19 08/20/19 Range/Units 12:25 12:25 11:33 WBC (4.4-11.0) K/mm3 RBC (4.2-5.4) M/mm3 Hgb (12.0-15.0) g/dL Hct (37-47) % MCV (81-99) fL MCH (27.0-32.0) pg MCHC (32-36) g/dL RDW Std Deviation (35.1-43.9) fl RDW Coeff of Festus (11.6-14.6) % Plt Count (150-450) K/mm3 MPV (6.2-12.0) fl Immature Gran % (Auto) (0.0-0.9) % Neut % (Auto) (47-70) % Lymph % (Auto) (19-41) % Bourbon % (Auto) (0-10) % Eos % (Auto) (0-5) % Baso % (Auto) (0-1) % Absolute Neuts (auto) (2.0-7.7) X10^3/uL Absolute Lymphs (auto) (0.83-4.51) X10^3/uL Nucleated RBC % (0-5) % Sodium (136-145) mmol/L Potassium (3.5-5.1) mmol/L Chloride (98-107) mmol/L Carbon Dioxide (21.0-32.0) mmol/L Anion Gap (5-15) BUN (7-18) mg/dL Creatinine (0.55-1.02) mg/dL Estim Creat Clear Calc ml/min Est GFR (MDRD) Af Amer (>60) mL/min Est GFR (MDRD) Non-Af (>60) mL/min BUN/Creatinine Ratio (10-20) RATIO Glucose (74-106) mg/dL Calcium (8.5-10.1) mg/dL Urine Color Yellow (Yellow) Urine Clarity Clear (Clear) Urine pH 5.0 (5.0 - 8.0) Ur Specific Carmine 1.015 (1.002-1.030) Urine Protein Negative (Negative) mg/dl Urine Glucose (UA) Normal (Normal) mg/dl Urine Ketones Negative (Negative) mg/dl Urine Occult Blood 10 H (Negative) /ul Urine Nitrite Negative (Negative) Urine Bilirubin Negative (Negative) mg/dL Urine Urobilinogen Normal (Normal) mg/dl Ur Leukocyte Esterase 25 H (Negative) /ul Urine RBC 0 SEEN (0-5) /hpf Urine WBC 0-5 SEEN (0-5) /hpf Ur Squamous Epith Cells 0 SEEN (5-10) /hpf Urine Bacteria 0 SEEN (None Seen) /hpf Urine Mucus 0 SEEN (<or=2+) /hpf Urine Opiates Screen NEGATIVE (< 300 ng/mL) Urine Methadone Screen NEGATIVE (< 300 ng/mL) Ur Barbiturates Screen NEGATIVE (< 200 ng/mL) Ur Phencyclidine Scrn NEGATIVE (< 25 ng/mL) Ur Amphetamines Screen NEGATIVE (<1000 ng/mL) U Methamphetamin-MDMA NEGATIVE (< 500 ng/mL) U Benzodiazepines Scrn NEGATIVE (< 200 ng/mL) Urine Cocaine Screen NEGATIVE (< 300 ng/mL) U Cannabinoids Screen NEGATIVE (< 50 ng/mL) Ur Drug Screen Comment Ethyl Alcohol < 3.0 mg/dL 08/20/19 08/20/19 Range/Units 11:33 11:33 WBC 8.3 (4.4-11.0) K/mm3 RBC 4.47 (4.2-5.4) M/mm3 Hgb 12.6 (12.0-15.0) g/dL Hct 39.8 (37-47) % MCV 89.0 (81-99) fL MCH 28.2 (27.0-32.0) pg MCHC 31.7 L (32-36) g/dL RDW Std Deviation 42.2 (35.1-43.9) fl RDW Coeff of Festus 13.0 (11.6-14.6) % Plt Count 287 (150-450) K/mm3 MPV 10.3 (6.2-12.0) fl Immature Gran % (Auto) 0.400 (0.0-0.9) % Neut % (Auto) 70.2 H (47-70) % Lymph % (Auto) 19.9 (19-41) % Bourbon % (Auto) 7.9 (0-10) % Eos % (Auto) 1.2 (0-5) % Baso % (Auto) 0.4 (0-1) % Absolute Neuts (auto) 5.9 (2.0-7.7) X10^3/uL Absolute Lymphs (auto) 1.66 (0.83-4.51) X10^3/uL Nucleated RBC % 0 (0-5) % Sodium 139 (136-145) mmol/L Potassium 4.2 (3.5-5.1) mmol/L Chloride 107 (98-107) mmol/L Carbon Dioxide 26.0 (21.0-32.0) mmol/L Anion Gap 6 (5-15) BUN 23 H (7-18) mg/dL Creatinine 0.98 (0.55-1.02) mg/dL Estim Creat Clear Calc 40.44 ml/min Est GFR (MDRD) Af Amer 72 (>60) mL/min Est GFR (MDRD) Non-Af 59 L (>60) mL/min BUN/Creatinine Ratio 23.5 H (10-20) RATIO Glucose 159 H (74-106) mg/dL Calcium 9.4 (8.5-10.1) mg/dL Urine Color (Yellow) Urine Clarity (Clear) Urine pH (5.0 - 8.0) Ur Specific Carmine (1.002-1.030) Urine Protein (Negative) mg/dl Urine Glucose (UA) (Normal) mg/dl Urine Ketones (Negative) mg/dl Urine Occult Blood (Negative) /ul Urine Nitrite (Negative) Urine Bilirubin (Negative) mg/dL Urine Urobilinogen (Normal) mg/dl Ur Leukocyte Esterase (Negative) /ul Urine RBC (0-5) /hpf Urine WBC (0-5) /hpf Ur Squamous Epith Cells (5-10) /hpf Urine Bacteria (None Seen) /hpf Urine Mucus (<or=2+) /hpf Urine Opiates Screen (< 300 ng/mL) Urine Methadone Screen (< 300 ng/mL) Ur Barbiturates Screen (< 200 ng/mL) Ur Phencyclidine Scrn (< 25 ng/mL) Ur Amphetamines Screen (<1000 ng/mL) U Methamphetamin-MDMA (< 500 ng/mL) U Benzodiazepines Scrn (< 200 ng/mL) Urine Cocaine Screen (< 300 ng/mL) U Cannabinoids Screen (< 50 ng/mL) Ur Drug Screen Comment Ethyl Alcohol mg/dL Impressions Brain CT 08/20/19 11:20 IMPRESSION: Chronic involutional changes of the brain. Electronically Signed: Kiara Gonzales MD at 12:03 EDT Tel , Service support , Chest X-Ray 08/20/19 11:20 IMPRESSION: Improved aeration of the lungs since prior study minimal left lower lobe atelectasis. Status post CABG. Electronically Signed: Kym Brasher MD at 12:13 EDT Tel , Service support , 08/20/19 11:20 Brain/Head without Contrast [CT] Stat Chest 1 View (Portable) [RAD] Stat Laboratory Results 08/20/19 08/20/19 08/20/19 11:33 11:33 11:33 WBC 8.3 RBC 4.47 Hgb 12.6 Hct 39.8 MCV 89.0 MCH 28.2 MCHC 31.7 L RDW Std Deviation 42.2 RDW Coeff of Festus 13.0 Plt Count 287 MPV 10.3 Immature Gran % (Auto) 0.400 Neut % (Auto) 70.2 H Lymph % (Auto) 19.9 Bourbon % (Auto) 7.9 Eos % (Auto) 1.2 Baso % (Auto) 0.4 Absolute Neuts (auto) 5.9 Absolute Lymphs (auto) 1.66 Nucleated RBC % 0 Sodium 139 Potassium 4.2 Chloride 107 Carbon Dioxide 26.0 Anion Gap 6 BUN 23 H Creatinine 0.98 Estim Creat Clear Calc 40.44 Est GFR (MDRD) Af Amer 72 Est GFR (MDRD) Non-Af 59 L BUN/Creatinine Ratio 23.5 H Glucose 159 H Calcium 9.4 Urine Color Urine Clarity Urine pH Ur Specific Carmine Urine Protein Urine Glucose (UA) Urine Ketones Urine Occult Blood Urine Nitrite Urine Bilirubin Urine Urobilinogen Ur Leukocyte Esterase Urine RBC Urine WBC Ur Squamous Epith Cells Urine Bacteria Urine Mucus Urine Opiates Screen Urine Methadone Screen Ur Barbiturates Screen Ur Phencyclidine Scrn Ur Amphetamines Screen U Methamphetamin-MDMA U Benzodiazepines Scrn Urine Cocaine Screen U Cannabinoids Screen Ur Drug Screen Comment Ethyl Alcohol < 3.0 08/20/19 08/20/19 12:25 12:25 WBC RBC Hgb Hct MCV MCH MCHC RDW Std Deviation RDW Coeff of Festus Plt Count MPV Immature Gran % (Auto) Neut % (Auto) Lymph % (Auto) Bourbon % (Auto) Eos % (Auto) Baso % (Auto) Absolute Neuts (auto) Absolute Lymphs (auto) Nucleated RBC % Sodium Potassium Chloride Carbon Dioxide Anion Gap BUN Creatinine Estim Creat Clear Calc Est GFR (MDRD) Af Amer Est GFR (MDRD) Non-Af BUN/Creatinine Ratio Glucose Calcium Urine Color Yellow Urine Clarity Clear Urine pH 5.0 Ur Specific Carmine 1.015 Urine Protein Negative Urine Glucose (UA) Normal Urine Ketones Negative Urine Occult Blood 10 H Urine Nitrite Negative Urine Bilirubin Negative Urine Urobilinogen Normal Ur Leukocyte Esterase 25 H Urine RBC 0 SEEN Urine WBC 0-5 SEEN Ur Squamous Epith Cells 0 SEEN Urine Bacteria 0 SEEN Urine Mucus 0 SEEN Urine Opiates Screen NEGATIVE Urine Methadone Screen NEGATIVE Ur Barbiturates Screen NEGATIVE Ur Phencyclidine Scrn NEGATIVE Ur Amphetamines Screen NEGATIVE U Methamphetamin-MDMA NEGATIVE U Benzodiazepines Scrn NEGATIVE Urine Cocaine Screen NEGATIVE U Cannabinoids Screen NEGATIVE Ur Drug Screen Comment Ethyl Alcohol <Gabriel Perez - Last Filed: 08/20/19 14:33> Disposition: Transfer <Kasandra Pepe - Last Filed: 08/20/19 14:19> ED Disposition <Kasandra Pepe - Last Filed: 08/20/19 14:19> <Gabriel Perez - Last Filed: 08/20/19 14:33> - Plan for ED Patient: Disposition: Psychiatric Hospital or Unit Diagnosis: Acute psychosis, Type II diabetes mellitus, HLD (hyperlipidemia), GERD (gastroesophageal reflux disease), Benign essential hypertension, Bullous pemphigus Referrals: Jeni Estrella DO [Primary Care Provider] -
[2019-08-20 11:52] LABS: Absolute Lymphocyte Count 1.66 X10^3/uL (0.83-4.51); Absolute Neutrophil Count 5.9 X10^3/uL (2.0-7.7); Basophil# 0.03 X10^3/uL; Basophil% 0.4 % (0-1); Eosinophils% 1.2 % (0-5); Hematocrit 39.8 % (37-47); Hemoglobin 12.6 g/dL (12.0-15.0); Lymphocyte # 1.66 X10^3/ul (4.0); Lymphocyte % 19.9 % (19-41); Mean Corp Hgb Conc 31.7 g/dL (32-36); Mean Corpuscular Hgb 28.2 pg (27.0-32.0); Mean Platelet Vol. 10.3 fl (6.2-12.0); Monocyte# 0.66 X10^3/uL; Monocyte% 7.9 % (0-10); NRBC Flagged by Analyzer 0 % (0-5); Neutrophil # 5.85 X10^3/uL (2.7-7.7); Neutrophil % 70.2 % (47-70); Platelet Count 287 K/mm3 (150-450); RBC Distribution Width SD 42.2 fl (35.1-43.9); Red Blood Count 4.47 M/mm3 (4.2-5.4); White Blood Count 8.3 K/mm3 (4.4-11.0)
[2019-08-20 12:04] LABS: Anion Gap 6 (5-15); BUN 23 mg/dL (7-18); BUN/Creat Ratio 23.5 RATIO (10-20); Calcium,Total 9.4 mg/dL (8.5-10.1); Chloride 107 mmol/L (98-107); Creatinine, Serum 0.98 mg/dL (0.55-1.02); EST Glomerular Filtration Rate 59 mL/min (>60); Est Glom Filt Rate - Afr Amer 72 mL/min (>60); Estimated Creatinine Clearance 40.44 ml/min; Glucose 159 mg/dL (74-106); Potassium 4.2 mmol/L (3.5-5.1); Sodium Level 139 mmol/L (136-145)
[2019-08-20 12:06] VITALS: RESP 18
[2019-08-20 12:22] LABS: Alcohol, Blood (Medical)-Serum < 3.0 mg/dL
[2019-08-20 12:31] LABS: Bacteria 0 SEEN /hpf (None Seen); Mucous, Urine 0 SEEN /hpf (<or=2+); Red Blood Cells-Urine 0 SEEN /hpf (0-5); Squamous Epithelial Cells - UA 0 SEEN /hpf (5-10)
[2019-08-20 12:50] LABS: Amphetamine Urine VISTA NEGATIVE (<1000 ng/mL); Barbiturate Urine VISTA NEGATIVE (< 200 ng/mL); Benzodiazepine Urine VISTA NEGATIVE (< 200 ng/mL); Cocaine Urine VISTA NEGATIVE (< 300 ng/mL); Ecstacy Urine VISTA NEGATIVE (< 500 ng/mL); Methadone Urine VISTA NEGATIVE (< 300 ng/mL); PCP Urine VISTA NEGATIVE (< 25 ng/mL); THC Urine VISTA NEGATIVE (< 50 ng/mL); Vista UDS pH Range 5
[2019-08-20 12:58] LABS: Color, Urine Yellow (Yellow); Glucose, Dipstick Normal (Normal); Ketone-Dipstick Negative (Negative); Leukocyte Esterase-Dipstick 25 /ul (Negative); Nitrite-Dipstick Negative (Negative); Occult Blood-Urine 10 /ul (Negative); Protein-Dipstick Negative (Negative); Specific Gravity, Urine 1.015 (1.002-1.030); Urine Bilirubin Dipstick Negative (Negative); Urine Clarity Clear (Clear); Urine Urobilinogen Normal (Normal)
[2019-08-20 13:19] LABS: White Blood Cells 0-5 SEEN /hpf (0-5)
--- NOTE | 2019-08-20 13:35 | CM.ED ---
Social Work Consult: Mental Health Informant: Ricky Rios Chief Complaint: Patient spouse brining patient to [facility] with concerns of auditory and visual hallucinations. Patient stating that patient spouse, is confused. Marital/Social History: to Jeet Rod for 50 years. Has two adult sons, Raquel Living Situation: Lives with spouse. Support/Resources: Patient stating that son's are supportive but spouse doesn't understand. History: None Education/Employment History: Completed high school. Reporting no concerns with comprehension or understanding. Mental Health Treatment/History: None. Patient denies any history of counseling services or inpatient psychiatric placement. Triggers/Stressors: Patient stating to be having hearing problems and then stating my spouse doesn't believe what I am hearing. Abuse Issues: Denies Substance Abuse Hx: Denies Risk to Self/Others: Patient denies any suicidal or homicidal thoughts/plans. Mental Status: A&Ox3 Appearance/General Behavior: Clean. Calm Mood/Affect: Appropriate. Pleasant Communication Pattern: Responds to questions. Thought Process: Patient denies any hallucination or delusions. Then patient explaining to this high school social studies tutor how patient is diagnosed with cancer all over and that patient only has 2 weeks to live. This high school social studies tutor asking who diagnosed patient. Patient stating to not be sure of the names or who they are. Patient stating to have been diagnosed yesterday. Patient then also stating that the upstairs neighbors in patient apartment complex have drilled holes through the floor to be able to watch TV as the neighbors TV is currently broken. Patient stating that the neighbors kid will sometimes watch TV through the hole when patient is watching kid shows. Patient stating that patient spouse does not see or hear these things because he does not look, he does not listen. Patient spouse denying any of the above information and stating that patient is always talking to someone. Patient asking this high school social studies tutor to call patient brother, Jose as Jose knows about the women. Patient does not have contact information for this high school social studies tutor to be able to call Jsoe. Will attempt to obtain from patient spouse. General Intellectual Functioning: Average Judgement: Poor Assessment: Met with patient in room. Introduced self as well as high school social studies tutor role. Patient is agreeable to speak with this high school social studies tutor. Patient resting in bed in no apparent distress. Patient pleasant to speak with and is convinced that patient has cancer and will in a few weeks. Patient appears to be fine with this information stating I will go when it is my time. Patient stating God only knows. Patient stating multiple times that patient spouse can not hear or see anything. Patient laughing when this high school social studies tutor asked patient if patient is hearing or seeing anything that might not be there. Patient also laughing when asking mental health background questions. Patient stating no dear to this high school social studies tutor with a pleasant affect. Patient stating that patient spouse tells patient that patient is delusional. Patient stating to also sleep in recliner as there are bugs in the bed. Patient stating to feel bugs crawling on patient and to know they are there. Telephone call to patient spouse. Patient spouse stating to be concerned about patient having delusions. Patient spouse, Jeet stating to not believe to be able to care for patient at home right now as things are getting bad. Jeet denies patient hurting self or others but that patient is not in the right mind. Jeet denies any mental health history for patient. Jeet denies any bugs in patient bed and stating that patient was sleeping in the bed but only on the edge of the bed but now only sleeps in the recliner. Jeet stating to be concerned about patient. Jeet is also not sure about psychiatric placement for patient and wanting to speak with some friends. Jeet to get back to this high school social studies tutor. Collaborating with Ricky Rios/Dr. Pepe. Recommending inpatient psychiatric placement for acute psychosis. Will continue to follow. Kayleigh HYLTON, YING
[2019-08-20] MEDS: LORazepam 0.5 MG Tablet PO (14:21)
[2019-08-20 14:26] VITALS: BP 149/65; PULSE 62; RESP 18; O2SAT 95
--- NOTE | 2019-08-20 14:37 | CM.ED ---
Social Work Telephone call from patient spouse, Jeet. Jeet is agreeable to inpatient psychiatric placement. Jeet requesting for this oncology social worker to look into [facility]. Telephone call to all three facilities and they are not able to accommodate or not accepting at this time. Telephone call to [facility], and they are not in-network with patient insurance. Jeet agreeable with [facility]. Telephone call to Jose Sprague. Able to review clinicals. Verbal acceptance pending confirmation of verbal report. Clinical information faxed. Pending call back for formal acceptance. Reeder slip faxed. Kayleigh Carrillo MICROMATIC HONE OPERATOR, YING
--- NOTE | 2019-08-20 15:32 | NURSING ---
ACCEPTED AT [facility]. THEY ARE SENDING LYNAviva JENKINS TO BE HEAR AT 1730
--- NOTE | 2019-08-20 15:48 | CM.ED ---
Social Work Telephone call from Joo Quinn. Geeta. Patient has been accepted. Accepting is Dr. Enciso. Patient to be admitted to room 212 bed #2. Nurse to nurse report: [phone]. Geeta reporting that [facility] with be providing transportation at 5:30pm on this day. Updated patient and medical team. Telephone call to patient spouse, Jeet. Updated Jeet on plan. Jeet agreeable. Kayleigh Carrillo MSW, YING
[2019-08-20 16:07] VITALS: BP 168/85; PULSE 55; RESP 18; O2SAT 98
[2019-08-20 16:49] VITALS: PULSE 72; RESP 18; O2SAT 98
[2019-08-20 17:52] VITALS: RESP 18
== END 2019-08-20 17:52 ==
PROVIDERS: Emergency Provider Physician Assistant Medical; PCP Family Medicine
DX: F23 Brief psychotic disorder (principal); E11.9 Type 2 diabetes mellitus without complications; E03.9 Hypothyroidism, unspecified; E78.5 Hyperlipidemia, unspecified; K21.9 Gastro-esophageal reflux disease without esophagitis; I10 Essential (primary) hypertension; L10.89 Other pemphigus; I25.10 Atherosclerotic heart disease of native coronary artery without angina pectoris; Z87.891 Personal history of nicotine dependence; Z95.1 Presence of aortocoronary bypass graft; Z79.899 Other long term (current) drug therapy
CPT/HCPCS: 70450; 71045; 80048; 80307; 80320; 81001; 85025; 93005; 96372; 99284; A4216; G0480

== ENCOUNTER → 2019-10-31 15:59 | Outpatient (CLI) | payer MEDICARE, SELFPAY ==
--- NOTE | 2019-10-31 16:12 | MRI_ITS ---
STUDY: MRI BRAIN WITH AND WITHOUT CONTRAST REASON FOR EXAM: Female, 74 years old. memory loss -- delusions, early alzheimers TECHNIQUE: Standardized multiplanar fat and water weighted pulse sequences were obtained. IV dotarem 15ml was administered for the contrast portion of the examination. COMPARISON: Head CT dated August 20, 2019 FINDINGS: There is mild cerebral atrophy with widening of the extra-axial spaces and ventricular dilatation. There are multiple white matter hyperintensities, distributed throughout the deep white matter tracts of the cerebral hemispheres, consistent with moderate to severe chronic white matter ischemic changes. There is no evidence for recent intracranial ischemia or other cause of cytotoxic edema on diffusion weighted imaging (DWI). Normal T2* images of the brain without demonstrated susceptibility artifact. There is no demonstrated hemosiderin stain. Normal bilateral basal ganglia. Normal thalami. There is no extra-axial fluid accumulation. Normal flow voids within the major intracranial circulation suggesting patency by spin echo criteria. Normal venous enhancement. There is no enhancing intra-axial or extra-axial abnormality. No demonstrated enhancing lesions. Normal sella turcica, pituitary gland, infundibular stalk, optic chiasm and hypothalamus. Normal tectal plate and pineal gland. Normal midbrain, rema and medulla. Normal cerebellum. Normal basal cisterns. Normal bilateral temporal bones. Normal bilateral internal auditory canals. No demonstrated orbital abnormality, within the constraints of a routine brain study. Normal visualized paranasal sinuses. Normal calvarium and skull base. Normal visualized soft tissue structures. Normal visualized upper cervical spine. MRI/Brain W/WO Contrast IMPRESSION: 1. Mild involutional changes of the brain, as described above. 2. Moderate to severe chronic ischemic changes of the white matter 3. No demonstrated enhancing lesions Electronically Signed: Valente Marcano MD at 23:49 EDT , Service support ,
[2019-10-31 16:56] LABS: CREATININE FINGERSTICK 1.4 mg/dL (0.55-1.02)
== END ==
PROVIDERS: PCP Family Medicine; Referring Provider Psychiatry & Neurology Neurology; Visit Provider Psychiatry & Neurology Neurology
DX: R41.3 Other amnesia (principal)
CPT/HCPCS: 70553; A9575

== ENCOUNTER 2020-06-13 09:39 | Outpatient (RCR) | payer MEDICARE, SELFPAY | END 2020-06-13 23:59 | LOC: IMMUN 09:39 | PROVIDERS: PCP Family Medicine; Referring Provider Family Medicine; Visit Provider Family Medicine | DX: Z23 Encounter for immunization (principal) | CPT/HCPCS: 0011A; 0012A ==

== ENCOUNTER → 2020-11-26 15:07 | Outpatient (CLI) | payer MEDICARE, SELFPAY ==
[2020-11-26 16:46] LABS: Absolute Lymphocyte Count 1.69 X10^3/uL (0.83-4.51); Absolute Neutrophil Count 7.1 X10^3/uL (2.0-7.7); Basophil# 0.02 X10^3/uL; Basophil% 0.2 % (0-1); Eosinophil# 0.06 X10^3/uL; Eosinophils% 0.6 % (0-5); Hematocrit 37.5 % (37-47); Hemoglobin 12.1 g/dL (12.0-15.0); Lymphocyte # 1.69 X10^3/ul (0.83-4.51); Lymphocyte % 17.8 % (19-41); Mean Corp Hgb Conc 32.3 g/dL (32-36); Mean Corpuscular Hgb 28.7 pg (27.0-32.0); Mean Corpuscular Volume 88.9 fL (81-99); Mean Platelet Vol. 11.1 fl (6.2-12.0); Monocyte% 6.3 % (0-10); NRBC Flagged by Analyzer 0 % (0-5); Neutrophil % 74.6 % (47-70); Platelet Count 289 K/mm3 (150-450); RBC Distribution Width CV 13.2 % (11.6-14.6); RBC Distribution Width SD 43.1 fl (35.1-43.9); Red Blood Count 4.22 M/mm3 (4.2-5.4); White Blood Count 9.5 K/mm3 (4.4-11.0)
[2020-11-26 17:02] LABS: Erythrocyte Sedimentation Rate 39 mm/hr (0-30)
[2020-11-26 19:10] LABS: ALB/GLOB Ratio 0.9 RATIO (0.9-2.4); AST(SGOT) 12 U/L (15-37); Alanine Aminotransfer ALT/SGPT 15 U/L (13-56); Albumin, Serum 3.4 g/dL (3.2-5.0); Alkaline Phosphatase 61 U/L (45-117); Anion Gap 10 (5-15); BUN 23 mg/dL (7-18); BUN/Creat Ratio 19.3 RATIO (10-20); CRP < 2.90 mg/L (0.0-3.0); Calcium,Total 9.4 mg/dL (8.5-10.1); Chloride 106 mmol/L (98-107); Creatinine, Serum 1.19 mg/dL (0.55-1.02); EST Glomerular Filtration Rate 47 mL/min (>60); Est Glom Filt Rate - Afr Amer 57 mL/min (>60); Free T3 2.1 pg/mL (2.18-3.98); Globulin 3.6 g/dL (2.2-4.2); Glucose 116 mg/dL (74-106); Potassium 4.2 mmol/L (3.5-5.1); Sodium Level 140 mmol/L (136-145); T4 Free Direct 1.52 ng/dL (0.76-1.46); Thyroid Stim Hormone (TSH) 0.84 uIU/mL (0.358-3.74)
== END ==
PROVIDERS: PCP Family Medicine; Visit Provider Family Medicine
DX: Z51.81 Encounter for therapeutic drug level monitoring (principal); E03.9 Hypothyroidism, unspecified; R19.7 Diarrhea, unspecified
CPT/HCPCS: 36415; 80053; 84439; 84443; 84481; 85025; 85652; 86140

== ENCOUNTER → 2021-03-11 15:40 | Outpatient (CLI) | payer MEDICARE, SELFPAY ==
--- NOTE | 2021-03-11 16:00 | RAD_ITS ---
STUDY: X-RAY - ABDOMEN/PELVIS REASON FOR EXAM: Female, 75 years old. Abdominal pain, bowel incontinence TECHNIQUE: AP COMPARISON: None. FINDINGS: Excluded lung bases No dilated loops of small bowel. Fecal residue of the left more than right colon. Some fecal residue in the rectal vault. There is no demonstrated free abdominal air. The visualized liver, spleen and kidneys are grossly normal in size and morphology. There are calcified phleboliths in the pelvis. There are diffuse degenerative changes of the visualized lumbar spine, bilateral hips and sacroiliac joints. RAD/Abdomen Single View IMPRESSION: Moderate colonic fecal retention. Nonobstructive bowel gas pattern. Electronically Signed: Sukhi Loo MD (Brooks) at 16:22 EST , Service support ,
== END ==
PROVIDERS: PCP Family Medicine; Referring Provider Family Medicine; Visit Provider Family Medicine
DX: R10.9 Unspecified abdominal pain (principal)
CPT/HCPCS: 74018

== ENCOUNTER 2021-09-13 12:58 | Outpatient (RCR) | payer MEDICARE, SELFPAY ==
--- NOTE | 2021-09-13 14:28 | HP.PTEVAL_ITS ---
Patient's Visit Information LOYDA GARCIA is a 76 year old F referred to Physical Therapy by JOE MEJÍA with a diagnosis of PD. Date of Evaluation: 09/13/21 Physical Therapist: DOREEN Slameron - Visit Plan Frequency: 1x/Week Duration: 2 Months Plan: Pt is only able to get here 1X/ month due to her being homebound and the expense of getting here. He would like to look into home health PT services and a rollator to be able to get around better in the home. Attempted to call Dr today but they were gone for the day. Will reattempt to call next week. Issued pt HEP: including supine to sidelying practice with present and helping, seated stick shoulder flexion, seated hip march, seated LAQ, seated trunk rotation, supine bridge (painfree ROM, supine LTR, and supine SKC). - Subjective told the subjective. She was diagnosed couple of years ago. She has trouble walking. She can not do much of anything. She can not walk any distance. She walks around at home very little. Gets up to go to the bathroom and does not hold onto anything. Her back prevented her from walking. She has had x-rays and showed some arthritis. She has PD. She sleeps in the recliner and wont sleep in a bed. She sleeps most of the day. She is tired all the time. It takes her awhile to fall asleep. She takes a lot of medication. Pt reports no trouble out of a chair. reports that his does struggle getting out of a chair. No stairs at home. She gets in and out of SUV ok. No freezing episodes. No falls.... she used to fall out of bed about 3 times but now does not sleep in the bed. No form of exercises at home. She watches TV and sleeps. PD meds seems to be helping her but not sure how. She has some hallucinations. - Objective LE MMT: B hip flex 3+/5, B knee ext 3+/5, B knee flex 4-/5 B, B hip abd 3-/5, pt is not able to lift her bottom off the mat table to do a bridge. Sit to stand: uses arms to stand up from the chair or wheel chair with SBA on first attempt with SBA. Standing balance: pt uses her arm to reach out of table or wheelchair handle when standing I. Gait: Pt walks with short stride and very slow phuong. Pt is able to turn her head about 1/4 turn with amb and then her gait slows down. While walking she reaches out to the sue rail due to she feels LOB. Had the pt walk with a rollator and she was able to walk at least 100 feet with the rollator and able to increase her speed and stride a little bit with CGA with a gait belt. Sitting on edge of mat table pt needed min A to help weight shift to get her bottom onto the mat table. Sitting to supine with mod A due to back pain (pt has been in a chair for awhile now since falling out of bed and fear of falling out of bed). Pt was not able to roll to either side (sidelying due to feeling like she would fall off the edge. Therapist helped to guide her to sidelying with her fear and with max A). - Balance/Special Test Scores Lower Extremity Functional Score: 26 - Goals Goal 1:: I HEP Goal Time Frame: 6-8 Weeks Goal 2:: Increase endurance to start walking around her house with a rollator (Pt to hopefully get). Goal Time Frame: 6-8 Weeks Goal 3:: Be able to roll in bed to sidelying with verbal commands Goal Time Frame: 6-8 Weeks Goal 4:: Be able to sit to stand X 5 in a row without any signs of weakness Goal Time Frame: 6-8 Weeks - Rehabilitation Potential Physical Therapy Diagnosis: PD, weakness, Balance issues, bed mobility issues, decreased ability to ambulate. Rehabilitation Potential: Fair - Anticipated Interventions Patient/Client Instruction: Educate patient on: Condition, Plan of Care For the Purpose of:: To decrease pain, To increase ROM, To improve nutrient delivery to tissue, To improve muscle performance and motor function, To improve ability to perform ADL's, To increase tolerance to activity/condition/position, To improve ability of physical actions for home/community/work/leisure, To improve gait and locomotor functions, To improve health of tissue, To decrease soft tissue restriction, To increase flexibility/ROM, To improve endurance, To improve balance, To improve safety with gait Therapeutic Exercise to Include: Strength training, Endurance training, Balance training, Coordination, Agility training, Body mechanics, Postural training, Flexibilty training, Gait and locomotor training, Neuromotor development, Passive ROM, Active ROM, Dynamic Lumbar Stabilization, Scapular Strength/Stabilization For the Purpose of:: To decrease pain, To increase ROM, To improve nutrient delivery to tissue, To improve muscle performance and motor function, To improve ability to perform ADL's, To increase tolerance to activity/condition/position, To improve performance and independence with ADL's, To decrease level of supervision to perform tasks, To improve ability of physical actions for home/community/work/leisure, To improve gait and locomotor functions, To improve health of tissue, To decrease soft tissue restriction, To increase flexibility/ROM, To improve endurance, To improve balance, To improve safety with gait, To improve safety Functional Training to Include: Functional home training, Gait training For the Purpose of:: To improve gait and locomotor functions, To improve safety with gait Thank you for the opportunity to evaluate your patient. For Medicare and Medicare HMO plans, please review the plan of care and approve it. It will need to be FAXED BACK to us at [phone] for Medicare purposes. For Medicare only, by signing this I certify the plan of care. Please let me know if there are questions or concerns regarding this plan of care. Physician Signature: Date:
--- NOTE | 2021-10-16 17:42 | HP.PT.NRP ---
LOYDA GARCIA was seen in my office for initial evaluation on 09/13/21. The following Plan of Care was established for this patient: Initial Frequency: 1x/Week Initial Duration: 2 Months Patient/Client Instruction: Educate patient on: Condition, Plan of Care For the Purpose of:: To decrease pain, To increase ROM, To improve nutrient delivery to tissue, To improve muscle performance and motor function, To improve ability to perform ADL's, To increase tolerance to activity/condition/position, To improve ability of physical actions for home/community/work/leisure, To improve gait and locomotor functions, To improve health of tissue, To decrease soft tissue restriction, To increase flexibility/ROM, To improve endurance, To improve balance, To improve safety with gait Therapeutic Exercise to Include: Strength training, Endurance training, Balance training, Coordination, Agility training, Body mechanics, Postural training, Flexibilty training, Gait and locomotor training, Neuromotor development, Passive ROM, Active ROM, Dynamic Lumbar Stabilization, Scapular Strength/Stabilization For the Purpose of:: To decrease pain, To increase ROM, To improve nutrient delivery to tissue, To improve muscle performance and motor function, To improve ability to perform ADL's, To increase tolerance to activity/condition/position, To improve performance and independence with ADL's, To decrease level of supervision to perform tasks, To improve ability of physical actions for home/community/work/leisure, To improve gait and locomotor functions, To improve health of tissue, To decrease soft tissue restriction, To increase flexibility/ROM, To improve endurance, To improve balance, To improve safety with gait, To improve safety Functional Training to Include: Functional home training, Gait training For the Purpose of:: To improve gait and locomotor functions, To improve safety with gait This patient was last seen in our office 09/13/21. Pertinent comments regarding their Physical therapy will appear below: DC PT to request for home health last time we talked At this point I will be discontinuing this patient from physical therapy. I would be happy to see this patient again in the future if found appropriate by the physician. Thank you! Ally Kaufman, DOREEN Balance/Gait/Functional tests - Balance/Special Test Scores Lower Extremity Functional Score: 26
== END 2021-09-13 19:00 | disposition home or self-care (01) ==
LOC: PT 12:58
PROVIDERS: PCP Family Medicine; Referring Provider Nurse Practitioner; Visit Provider Nurse Practitioner
DX: G20 Parkinson's disease (principal); R26.81 Unsteadiness on feet
CPT/HCPCS: 97162

== ENCOUNTER 2022-05-24 17:50 | Inpatient (IN) | payer MEDICARE, SELFPAY ==
[2022-05-24] VITALS (12 sets, daily range): BP systolic 92–105; BP diastolic 50–61; PULSE 79–125; RESP 18–29; TEMP 36.6–38.8; O2SAT 96–99; BMI 28.6; BMI 23.0
--- NOTE | 2022-05-24 18:13 | CT_ITS ---
STUDY: CT BRAIN WITHOUT CONTRAST REASON FOR EXAM: Female, 77 years old. FEVER,WEAKNESS AND UNABLE TO GET UP HX:DIABETES,DEMENTIA,HLD,HTN,PARKINSON''S,WA WITH TRIPLE BYPASS altered mental status Individualized dose optimization techniques were used for this CT. TECHNIQUE: Transaxial CT imaging of the brain was performed without administration of intravenous contrast material. COMPARISON: MRI 10/31/2019 FINDINGS: There are calcifications noted in the distal vertebral arteries. There are calcifications noted in the cavernous carotid arteries. This is consistent for atherosclerotic disease. Normal calvarium. Normal soft tissues. There is mild cerebral atrophy with widening of the extra-axial spaces and ventricular dilatation. There are areas of decreased attenuation within the white matter tracts of the supratentorial brain, consistent with microvascular disease changes. Normal basal ganglia and thalami. Normal brainstem. There is mild cerebellar atrophy. There is no intracranial hemorrhage. There are no findings of an acute ischemic infarction. Degenerative changes of the mandibular condyles. ASPECTS Score for Acute Strokes: 01/27 CT/Brain/Head without Contrast IMPRESSION: There are no acute findings. Chronic involutional changes of the brain. Electronically Signed: Jacques Cruz MD at 19:10 EST ,
--- NOTE | 2022-05-24 18:14 | EKG12_ITS ---
Test Reason : WEAKNESS Blood Pressure : / mmHG Vent. Rate : 112 BPM Atrial Rate : 112 BPM P-R Int : 144 ms QRS Dur : 060 ms QT Int : 300 ms P-R-T Axes : 057 014 -37 degrees QTc Int : 409 ms Sinus tachycardia Low voltage QRS Cannot rule out Anterior infarct , age undetermined ST & T wave abnormality, consider lateral ischemia Abnormal ECG Confirmed by WISAM LEIGH, COLIN ([id number]), slot editor SUPRIYA ORDONEZ ([id number]) on 05/26/2022 1:20:24 PM Referred By: NARA Confirmed By:COLIN JOEL MD
[2022-05-24 18:28] LABS: Bacteria 0 SEEN /hpf (None Seen); Mucous, Urine 0 SEEN /hpf (<or=2+); Red Blood Cells-Urine 0 SEEN /hpf (0-5); Squamous Epithelial Cells - UA 0 SEEN /hpf (5-10)
[2022-05-24] MEDS: Acetaminophen 500 MG Tablet 1000 MG PO (18:28)
[2022-05-24 18:36] LABS: Absolute Lymphocyte Count 0.83 X10^3/uL (0.83-4.51); Absolute Neutrophil Count 16.4 X10^3/uL (2.0-7.7); Basophil# 0.04 X10^3/uL; Basophil% 0.2 % (0-1); Eosinophil# 0.01 X10^3/uL; Eosinophils% 0.1 % (0-5); Hematocrit 34.8 % (37-47); Lymphocyte # 0.83 X10^3/ul (0.83-4.51); Lymphocyte % 4.4 % (19-41); Mean Corp Hgb Conc 31.6 g/dL (32-36); Mean Corpuscular Hgb 28.9 pg (27.0-32.0); Mean Corpuscular Volume 91.6 fL (81-99); Mean Platelet Vol. 10.1 fl (6.2-12.0); Monocyte# 1.36 X10^3/uL; Monocyte% 7.2 % (0-10); NRBC Flagged by Analyzer 0 % (0-5); Neutrophil # 16.36 X10^3/uL (2.7-7.7); Platelet Count 379 K/mm3 (150-450); RBC Distribution Width CV 14.5 % (11.6-14.6); RBC Distribution Width SD 48.8 fl (35.1-43.9); White Blood Count 18.8 K/mm3 (4.4-11.0)
[2022-05-24 18:40] LABS: International Normalized Ratio 1.2; Partial Thromboplast Time 36.4 Seconds (24.1-36.2)
--- NOTE | 2022-05-24 18:40 | RAD_ITS ---
EXAM: XR CHEST, 1 VIEW CLINICAL INDICATION: fever TECHNIQUE: Frontal view of the chest. This report was created using [employer] report generation technology. COMPARISON: 08.20.19 FINDINGS: LUNGS AND PLEURAL SPACES: Unremarkable. No consolidation or edema. No pneumothorax. No effusion. HEART: Unremarkable. Cardiac silhouette not enlarged. MEDIASTINUM: Central airways and mediastinal contour are unremarkable. BONES/JOINTS: Multiple median sternotomy wires are noted consistent for cardiac surgery. SOFT TISSUES: Unremarkable. RAD/Chest 1 View (Portable) IMPRESSION: No acute findings in the chest. Electronically Signed: Jacques Cruz MD at 19:07 EST ,
[2022-05-24 18:42] LABS: Color, Urine Yellow (Yellow); Glucose, Dipstick 100 mg/dl (Normal); Ketone-Dipstick 5 mg/dl (Negative); Leukocyte Esterase-Dipstick 500 /ul (Negative); Nitrite-Dipstick Negative (Negative); Occult Blood-Urine 250 /ul (Negative); Protein-Dipstick 500 mg/dl (Negative); Specific Gravity, Urine 1.015 (1.002-1.030); Urine Bilirubin Dipstick Negative (Negative); Urine Clarity Cloudy (Clear); Urine Urobilinogen Normal (Normal)
[2022-05-24 18:43] LABS: White Blood Cells >100 SEEN /hpf (0-5)
[2022-05-24 18:53] LABS: ALB/GLOB Ratio 0.5 RATIO (0.9-2.4); AST(SGOT) 10 U/L (15-37); Alanine Aminotransfer ALT/SGPT 10 U/L (13-56); Albumin, Serum 2.9 g/dL (3.2-5.0); Alkaline Phosphatase 84 U/L (45-117); Anion Gap 15 (5-15); BUN 50 mg/dL (7-18); BUN/Creat Ratio 15.8 RATIO (10-20); Calcium,Total 9.3 mg/dL (8.5-10.1); Chloride 104 mmol/L (98-107); Creatinine, Serum 3.16 mg/dL (0.55-1.02); EST Glomerular Filtration Rate 15 mL/min (>60); Est Glom Filt Rate - Afr Amer 18 mL/min (>60); Estimated Creatinine Clearance 13.63 ml/min; Globulin 5.5 g/dL (2.2-4.2); Glucose 279 mg/dL (74-106); Potassium 5.5 mmol/L (3.5-5.1); Protein, Total 8.4 g/dL (6.4-8.2); Sodium Level 136 mmol/L (136-145); Troponin-I HS 8 pg/mL (3.0-54.0)
[2022-05-24] MEDS: Ceftriaxone 1 GM/50 ML BAG IV (18:56)
[2022-05-24 19:01] LABS: Lactic Acid 7.1 mmol/L (0.4-1.9)
--- NOTE | 2022-05-24 19:04 | EDS_ITS ---
HPI History of Present Illness Chief Complaint: Weakness Informant: patient and EMS Narrative Narrative: Generalized weakness that started yesterday, febrile here, disoriented, did have a fall although details are unknown, patient is not able to provide any history due to acute confusion, she does have a history of Parkinson's. [facility] Medical History (Updated 05/24/22 @ 20:[address] Sony Stearns MD) Benign essential hypertension Generalized anxiety disorder GERD (gastroesophageal reflux disease) HLD (hyperlipidemia) Parkinson's disease Type II diabetes mellitus Home Medications levothyroxine 50 mcg tablet 50 mcg PO DAILY 08/20/19 [History Last Taken Unknown] lorazepam 0.5 mg tablet 0.5 mg PO QHS 08/20/19 [History Last Taken Unknown] losartan 50 mg tablet 50 mg PO DAILY 08/20/19 [History Last Taken Unknown] metformin 1,000 mg tablet 1,000 mg PO BID 08/20/19 [History Last Taken Unknown] metoprolol tartrate 25 mg tablet 25 mg PO BID 08/20/19 [History Last Taken Unknown] simvastatin 20 mg tablet 20 mg PO QHS 08/20/19 [History Last Taken Unknown] aspirin 81 mg tablet 81 mg PO DAILY 05/24/22 [History Last Taken Unknown] carbidopa 25 mg-levodopa 100 mg tablet 1.5 tab PO TID 05/24/22 [History Last Taken Unknown] glipizide 2.5 mg tablet, extended release 24 hr 2.5 mg PO DAILY 05/24/22 [History Last Taken Unknown] memantine 10 mg tablet 10 mg PO DAILY 05/24/22 [History Last Taken Unknown] risperidone 0.5 mg tablet 0.5 mg PO DAILY 05/24/22 [History Last Taken Unknown] solifenacin 5 mg tablet 5 mg PO DAILY 05/24/22 [History Last Taken Unknown] Allergy/AdvReac Type Severity Reaction Status Date / Time No Known Allergies Allergy Verified 08/20/19 11:02 Social History Smoking Status: Never smoker ROS ROS ED Review of Systems ROS Unobtainable: due to mental status EXAM Physical Exam Const Vital Signs: 05/24/22 17:57 05/24/22 18:00 05/24/22 18:02 Temperature 100.2 F H 100.2 F H Temperature Source Oral Oral Pulse Rate 125 H 125 H Respiratory Rate 25 H 29 H Respiratory Effort Labored Respiratory Pattern Tachypnea Blood Pressure 105/53 L 105/53 L Blood Pressure Mean 70 70 Pulse Ox 97 97 Oxygen Delivery Method Room Air Room Air 05/24/22 18:22 05/24/22 19:00 05/24/22 20:00 Temperature 101.9 F H 100.6 F H Temperature Source Core Core Pulse Rate 109 H 95 Respiratory Rate 28 H 19 H Respiratory Effort Respiratory Pattern Blood Pressure 99/59 L 92/55 L Blood Pressure Mean 72 67 Pulse Ox 96 96 Oxygen Delivery Method Room Air Room Air Positive well nourished and well developed Constitutional Narrative: Ill-appearing, in no distress and awake. GCS 14. General Appearance ED: well developed HEENT Reports moist mucous membranes normocephalic and atraumatic Eyes PERRL and EOMs intact bilaterally Neck full ROM, no lymphadenopathy and supple Resp normal respiratory effort and clear to auscultation bilaterally Cardio regular rate, regular rhythm and no murmurs Rate: tachycardic GI non-tender and non-distended Auscultation: normoactive bowel sounds Palpation: soft Back/Spine no CVA tenderness General Back: other FROM Extremity normal to inspection General Extremety ED: Negative for edema, pulses abnormal or tenderness General Extremity: Negative for edema or pulses abnormal Neuro CN's II-XII intact bilaterally and no sensory deficits noted Neuro Narrative: Confused. Light palpation on every surface of the body and asking about pain yields a yes answer. Not able to follow commands. Does know that she is in an emergency department. Sensorium / Orientation: awake, alert and orientation impaired Skin no rashes or lesions noted and no wounds Sepsis Attestation Sepsis Alert: Yes Sepsis Attestation: Agree w/Sepsis Date exam was performed: 05/24/22 Time exam was performed: 18:00 Possible Source of Sepsis: Unknown Sepsis Organ Dysfunction Criteria Present: Creatinine > 2.0 mg/dL, Lactic Acid > 2 mmol/L, Serum CO2 < 20 mmol/L (on BMP) and New/Unexplained change in mental status Fluid Resuscitation Fluid resuscitation indicated?: Yes Fluid Resuscitation ordered: 30 ml/kg fluid bolus ordered Sepsis Note Date exam was performed: 05/24/22 Time exam was performed: 20:40 Sepsis Attestation: Sepsis re-evaluation was performed Response to fluids: Fluid responsive hypotension MDM MDM MDM Narrative Medical decision making narrative: Ordered septic work-up in addition to CT of the head and a COVID/flu swab on this patient. Initially nurses placed a temperature-sensing No catheter, and purulent milk-like urine was obtained. Based on this being the likely source of her condition, after cultures of the blood were obtained in addition to this urine sample, she was started on Rocephin. CT head imaging is unremarkable. My interpretation of the CT agrees with that of the radiologist. Basically negative for any acute. 1 view chest x-ray negative for pneumonia on my interpretation. Radiology in agreement. Work-up is consistent with sepsis with a lactate of 7, white blood count 18.8, cultures are sent antibiotics given as above, as well as IV fluids. She did start to drop her blood pressure prior to giving the majority of the IV fluids. We are treating her fever. She is hyperkalemic likely due to the acute on chronic kidney injury/failure, however it is mildly elevated potassium and she does not have any EKG changes, so I think this can be monitored with repeat levels after fluid resuscitation. She does not need to be intubated right now airway is intact and patent. Plan is for admission to the ICU. Lab Data Attestation: I reviewed the patient's lab results. Labs: Laboratory Results - last 24 hr 05/24/22 05/24/22 05/24/22 17:47 17:47 17:47 WBC 18.8 H RBC 3.80 L Hgb 11.0 L Hct 34.8 L MCV 91.6 MCH 28.9 MCHC 31.6 L RDW Std Deviation 48.8 H RDW Coeff of Festus 14.5 Plt Count 379 MPV 10.1 Immature Gran % (Auto) 1.100 H Neut % (Auto) 87.0 H Lymph % (Auto) 4.4 L [place] % (Auto) 7.2 Eos % (Auto) 0.1 Baso % (Auto) 0.2 Absolute Neuts (auto) 16.4 H Absolute Lymphs (auto) 0.83 Nucleated RBC % 0 PT 15.0 H INR 1.2 APTT 36.4 H Sodium 136 Potassium 5.5 H Chloride 104 Carbon Dioxide 17.0 L Anion Gap 15 BUN 50 H Creatinine 3.16 H Estim Creat Clear Calc 13.63 Est GFR (MDRD) Af Amer 18 L Est GFR (MDRD) Non-Af 15 L BUN/Creatinine Ratio 15.8 Glucose 279 H Lactic Acid Calcium 9.3 Total Bilirubin 0.80 AST 10 L ALT 10 L Alkaline Phosphatase 84 Troponin I High Sens 8 Total Protein 8.4 H Albumin 2.9 L Globulin 5.5 H Albumin/Globulin Ratio 0.5 L Urine Color Urine Clarity Urine pH Ur Specific Hiram Urine Protein Urine Glucose (UA) Urine Ketones Urine Occult Blood Urine Nitrite Urine Bilirubin Urine Urobilinogen Ur Leukocyte Esterase Urine RBC Urine WBC Ur Squamous Epith Cells Urine Bacteria Urine Mucus 05/24/22 05/24/22 18:05 18:20 WBC RBC Hgb Hct MCV MCH MCHC RDW Std Deviation RDW Coeff of Festus Plt Count MPV Immature Gran % (Auto) Neut % (Auto) Lymph % (Auto) [place] % (Auto) Eos % (Auto) Baso % (Auto) Absolute Neuts (auto) Absolute Lymphs (auto) Nucleated RBC % PT INR APTT Sodium Potassium Chloride Carbon Dioxide Anion Gap BUN Creatinine Estim Creat Clear Calc Est GFR (MDRD) Af Amer Est GFR (MDRD) Non-Af BUN/Creatinine Ratio Glucose Lactic Acid 7.1 H* Calcium Total Bilirubin AST ALT Alkaline Phosphatase Troponin I High Sens Total Protein Albumin Globulin Albumin/Globulin Ratio Urine Color Yellow Urine Clarity Cloudy Urine pH 6.0 Ur Specific Hiram 1.015 Urine Protein 500 H Urine Glucose (UA) 100 H Urine Ketones 5 H Urine Occult Blood 250 H Urine Nitrite Negative Urine Bilirubin Negative Urine Urobilinogen Normal Ur Leukocyte Esterase 500 H Urine RBC 0 SEEN Urine WBC >100 SEEN Ur Squamous Epith Cells 0 SEEN Urine Bacteria 0 SEEN Urine Mucus 0 SEEN Radiography Diagnostic Testing: Clinical Impression(s) from Imaging Studies Brain CT 05/24/22 18:13 IMPRESSION: There are no acute findings. Chronic involutional changes of the brain. Electronically Signed: Jacques Cruz MD at 19:10 EST , Chest X-Ray 05/24/22 18:40 IMPRESSION: No acute findings in the chest. Electronically Signed: Jacques Cruz MD at 19:07 EST , Rhythm Strip Rhythm Strip: Sinus Tach Rate: 115 Ectopy: None EKG Initial EKG: Attestation: I personally reviewed and interpreted this EKG as follows: Interpretation: No Acute Injury Pattern, Sinus Tachycardia and Non- Specific ST Changes Comments: No peaked T waves. QRS narrow. Critical Care Time Critical Care Time: Yes Critical care time (excluding procedures): 30-74 minutes (35 min), Including time spent:, Discussing w/Patient &/or Family/Hydro Plant Technician, Discussing w/Consultants, Arranging Admission or Transfer and Performing Direct Patient Care at Bedside Discharge Plan Dx/Rx/DC Orders Clinical Impression: Sepsis, Acute UTI, Metabolic encephalopathy, YAMILEX (acute kidney injury), Hy perkalemia, diminished renal excretion Disposition Disposition: Acute Care Hospital [facility]
--- NOTE | 2022-05-24 20:43 | PCM.HP.STD ---
HPI - General General Date of Admission: 05/24/22 Date of Service: 05/24/22 Chief Complaint: Fever, generalized weakness, inability to walk - 1 day HPI Narrative LOYDA GARCIA, is a 77 F who presents with the above. Patient has past medical history of Parkinson's disease, walks with a walker, type II DM, hypothyroidism who comes in after a fall. Patient was in her usual state of health until today when she stated that she felt weak and febrile today. She was walking from the bathroom when she fell. The EMS were called and she was found to be febrile. History was confirmed with . In the ED, BP was 105/53, heart rate 125, respiratory 25, temperature was 100.2F, T-max in the ED was 102F. WBC 18.8, hemoglobin 11.0, platelet count 379. INR is 1.2. Sodium is 136, potassium 5.5, chloride 104, bicarbonate 17, BUN 50, creatinine 3.16, previous creatinine was 1.19. Lactic acid is 7.1. UA was cloudy, purulent, looking urine from the No catheter, nitrite negative, leukocyte esterase 500, WBC more than 100. Rapid COVID-19 antigen test and influenza screen negative Admitting chest x-ray was unremarkable, brain CT showed chronic involutional changes of the brain. [facility] Medical History (Updated 05/24/22 @ 22:[address] Sheba Murrell MD) Benign essential hypertension Generalized anxiety disorder GERD (gastroesophageal reflux disease) HLD (hyperlipidemia) Parkinson's disease Type II diabetes mellitus Home Medications levothyroxine 50 mcg tablet 50 mcg PO DAILY 08/20/19 [History Last Taken Unknown] lorazepam 0.5 mg tablet 0.5 mg PO QHS 08/20/19 [History Last Taken Unknown] losartan 50 mg tablet 50 mg PO DAILY 08/20/19 [History Last Taken Unknown] metformin 1,000 mg tablet 1,000 mg PO BID 08/20/19 [History Last Taken Unknown] metoprolol tartrate 25 mg tablet 25 mg PO BID 08/20/19 [History Last Taken Unknown] simvastatin 20 mg tablet 20 mg PO QHS 08/20/19 [History Last Taken Unknown] aspirin 81 mg tablet 81 mg PO DAILY 05/24/22 [History Last Taken Unknown] carbidopa 25 mg-levodopa 100 mg tablet 1.5 tab PO TID 05/24/22 [History Last Taken Unknown] glipizide 2.5 mg tablet, extended release 24 hr 2.5 mg PO DAILY 05/24/22 [History Last Taken Unknown] memantine 10 mg tablet 10 mg PO DAILY 05/24/22 [History Last Taken Unknown] risperidone 0.5 mg tablet 0.5 mg PO DAILY 05/24/22 [History Last Taken Unknown] solifenacin 5 mg tablet 5 mg PO DAILY 05/24/22 [History Last Taken Unknown] Allergy/AdvReac Type Severity Reaction Status Date / Time No Known Allergies Allergy Verified 08/20/19 11:02 Family History (Updated 05/24/22 @ 22:[address] Sheba Murrell MD) Mother Heart disease Hypertension Father No problems noted. Surgical History (Updated 05/24/22 @ 22:[address] Sheba Murrell MD) Hx of CABG Social History (Updated 05/24/22 @ 22:[address] Sheba Murrell MD) household members: spouse housing: house Smoking Status: Never smoker alcohol intake: never substance use type: does not use ROS ROS Narrative Cannot give reliable ROS as she had intermittently exhibited periods of confusion and difficulty recalling events Review of Systems ROS Unobtainable: due to mental condition Vital Signs Vital Signs Vital Signs: 05/24/22 17:57 05/24/22 18:00 05/24/22 18:02 Temperature 100.2 F H 100.2 F H Temperature Source Oral Oral Pulse Rate 125 H 125 H Respiratory Rate 25 H 29 H Respiratory Effort Labored Respiratory Pattern Tachypnea Blood Pressure 105/53 L 105/53 L Blood Pressure Mean 70 70 Pulse Ox 97 97 Oxygen Delivery Method Room Air Room Air 05/24/22 18:22 05/24/22 19:00 05/24/22 20:00 Temperature 101.9 F H 100.6 F H Temperature Source Core Core Pulse Rate 109 H 95 Respiratory Rate 28 H 19 H Respiratory Effort Respiratory Pattern Blood Pressure 99/59 L 92/55 L Blood Pressure Mean 72 67 Pulse Ox 96 96 Oxygen Delivery Method Room Air Room Air Weight Weight: 78.1 kg Body Mass Index (BMI) 28.6 Physical Exam Narrative Physical exam: General: Alert, Oriented x2/3, ?not to time, appears frail, pale, not on oxygen HEENT: Atraumatic Oral: Moist Mucosa Neck: Supple Lungs: Diminished to auscultation, worse in the lung bases Cardiovascular: HS I+II, regular, no murmurs Abdomen: Bowel Sounds Present, Soft, Non Tender Extremities: No edema Skin: No rashes, No breakdown Neurological: Coarse tremors in both upper extremities worse in the right upper limb Psych/Mental Status: Appropriate Results Lab / Micro Data Result Diagrams: 05/24/22 17:47 05/24/22 17:47 Labs: Laboratory Results - last 24 hr 05/24/22 17:47: WBC 18.8 H, RBC 3.80 L, Hgb 11.0 L, Hct 34.8 L, MCV 91.6, MCH 28.9, MCHC 31.6 L, RDW Std Deviation 48.8 H, RDW Coeff of Festus 14.5, Plt Count 379, MPV 10.1, Immature Gran % (Auto) 1.100 H, Neut % (Auto) 87.0 H, Lymph % (Auto) 4.4 L, [place] % (Auto) 7.2, Eos % (Auto) 0.1, Baso % (Auto) 0.2, Absolute Neuts (auto) 16.4 H, Absolute Lymphs (auto) 0.83, Nucleated RBC % 0 05/24/22 17:47: PT 15.0 H, INR 1.2, APTT 36.4 H 05/24/22 17:47: Sodium 136, Potassium 5.5 H, Chloride 104, Carbon Dioxide 17.0 L, Anion Gap 15, BUN 50 H, Creatinine 3.16 H, Estim Creat Clear Calc 13.63, Est GFR (MDRD) Af Amer 18 L, Est GFR (MDRD) Non-Af 15 L, BUN/Creatinine Ratio 15.8, Glucose 279 H, Calcium 9.3, Total Bilirubin 0.80, AST 10 L, ALT 10 L, Alkaline Phosphatase 84, Troponin I High Sens 8, Total Protein 8.4 H, Albumin 2.9 L, Globulin 5.5 H, Albumin/Globulin Ratio 0.5 L 05/24/22 18:05: Lactic Acid 7.1 H* 05/24/22 18:20: Urine Color Yellow, Urine Clarity Cloudy, Urine pH 6.0, Ur Specific [place] 1.015, Urine Protein 500 H, Urine Glucose (UA) 100 H, Urine Ketones 5 H, Urine Occult Blood 250 H, Urine Nitrite Negative, Urine Bilirubin Negative, Urine Urobilinogen Normal, Ur Leukocyte Esterase 500 H, Urine RBC 0 SEEN, Urine WBC >100 SEEN, Ur Squamous Epith Cells 0 SEEN, Urine Bacteria 0 SEEN, Urine Mucus 0 SEEN Micro: Microbiology 05/24/22 18:20 Nasal Secretion SARS-CoV-2 & FLU Antigen (Rapid) - Final Radiology Impression Brain CT 05/24/22 18:13 IMPRESSION: There are no acute findings. Chronic involutional changes of the brain. Electronically Signed: Jacques Cruz MD at 19:10 EST , Chest X-Ray 05/24/22 18:40 IMPRESSION: No acute findings in the chest. Electronically Signed: Jacques Cruz MD at 19:07 EST , Assessment & Plan Assessment/Plan (1) Septic shock: PLAN: Plan 1. 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 YAMILEX on CKD, likely prerenal secondary to #1 Admitting creatinine 3.16, previous creatinine 1.19 Continue aggressive IV fluids, kidney and bladder ultrasound Hold losartan, simvastatin, metformin Trend labs in am 3. Hyperkalemia, potassium 5.5, likely secondary to #2, will repeat 4. Type II DM, on metformin and glipizide Will hold glipizide and metformin, continue with blood sugar checks and insulin sliding scale 5. Rest of chronic medical conditions including Parkinson's disease with dementia, anxiety disorder hypothyroidism, hyperlipidemia, complicates care and management as well as recovery of patient. Continue on Sinemet, risperidone, Ativan, Namenda 6. DVT PPx- Heparin SC I discussed and explained in details the various types of CODE STATUS-full code, DNR CCA, DNR CC. Patient chose to be full code and wants everything done to keep her alive. I also called her to discuss CODE STATUS prior to admission to ICU. Her stated that he had never discussed about that. He would want everything done to keep her alive. Time spent discussing CODE STATUS 22 minutes Charges/Coding Addendum Addendum: Total time spent: 75 minutes of which a greater part was spent in reviewing patient's chart, laboratory investigations, imaging, talking to emergency physician, taking history and physical examining patient calling her to confirm patient's history as well as discussed the plan of care. Visit Charges Inpatient E&M: 93546 Init Hosp L3 Procedures Hospitalists Procedures: 82079 Advncd Care Plan 30 Min
[2022-05-24] MEDS: 0.9% Normal Saline 1,000 ML 999 ML IV ×2 (20:45→21:58)
[2022-05-24 22:25] LABS: Reflex Lactate? Y
[2022-05-24] MEDS: Insulin Lispro 100 UNIT/ML INSULN.PEN SC (22:30)
[2022-05-24] MEDS: LORazepam 0.5 MG Tablet PO (22:30)
[2022-05-24] MEDS: 0.9% Normal Saline 1,000 ML 150 ML IV (23:06)
[2022-05-24 23:31] LABS: Bedside Glucose 206 mg/dL (74-106)
[2022-05-24 23:55] LABS: ALB/GLOB Ratio 0.5 RATIO (0.9-2.4); AST(SGOT) 9 U/L (15-37); Alanine Aminotransfer ALT/SGPT 7 U/L (13-56); Albumin, Serum 2.1 g/dL (3.2-5.0); Alkaline Phosphatase 61 U/L (45-117); Anion Gap 7 (5-15); BUN 45 mg/dL (7-18); BUN/Creat Ratio 18.6 RATIO (10-20); Chloride 112 mmol/L (98-107); Creatinine, Serum 2.42 mg/dL (0.55-1.02); EST Glomerular Filtration Rate 21 mL/min (>60); Est Glom Filt Rate - Afr Amer 25 mL/min (>60); Globulin 4.3 g/dL (2.2-4.2); Glucose 215 mg/dL (74-106); Lactic Acid 1.3 mmol/L (0.4-1.9); Potassium 4.3 mmol/L (3.5-5.1); Protein, Total 6.4 g/dL (6.4-8.2); Sodium Level 140 mmol/L (136-145)
[2022-05-25] VITALS (36 sets, daily range): BP systolic 86–137; BP diastolic 41–88; PULSE 77–110; RESP 14–25; TEMP 36.8–39.1; O2SAT 96–100
[2022-05-25] MEDS: Acetaminophen 325 MG Tablet 650 MG PO ×4 (03:31→21:11)
[2022-05-25 05:34] LABS: Absolute Lymphocyte Count 0.64 X10^3/uL (0.83-4.51); Absolute Neutrophil Count 10.6 X10^3/uL (2.0-7.7); Basophil# 0.04 X10^3/uL; Basophil% 0.3 % (0-1); Eosinophil# 0.02 X10^3/uL; Eosinophils% 0.2 % (0-5); Hematocrit 27.8 % (37-47); Hemoglobin 8.5 g/dL (12.0-15.0); Lymphocyte # 0.64 X10^3/ul (0.83-4.51); Lymphocyte % 5.2 % (19-41); Mean Corp Hgb Conc 30.6 g/dL (32-36); Mean Corpuscular Hgb 28.1 pg (27.0-32.0); Mean Corpuscular Volume 91.7 fL (81-99); Mean Platelet Vol. 9.7 fl (6.2-12.0); Monocyte# 0.94 X10^3/uL; Monocyte% 7.6 % (0-10); NRBC Flagged by Analyzer 0 % (0-5); Neutrophil # 10.56 X10^3/uL (2.7-7.7); Neutrophil % 85.5 % (47-70); Platelet Count 260 K/mm3 (150-450); RBC Distribution Width CV 14.6 % (11.6-14.6); RBC Distribution Width SD 49.1 fl (35.1-43.9); Red Blood Count 3.03 M/mm3 (4.2-5.4); White Blood Count 12.4 K/mm3 (4.4-11.0)
[2022-05-25 05:55] LABS: ALB/GLOB Ratio 0.5 RATIO (0.9-2.4); AST(SGOT) 11 U/L (15-37); Alanine Aminotransfer ALT/SGPT 11 U/L (13-56); Albumin, Serum 2.1 g/dL (3.2-5.0); Alkaline Phosphatase 69 U/L (45-117); Anion Gap 7 (5-15); BUN 38 mg/dL (7-18); Chloride 114 mmol/L (98-107); EST Glomerular Filtration Rate 26 mL/min (>60); Est Glom Filt Rate - Afr Amer 31 mL/min (>60); Estimated Creatinine Clearance 21.53 ml/min; Globulin 4.1 g/dL (2.2-4.2); Glucose 175 mg/dL (74-106); Potassium 4.3 mmol/L (3.5-5.1); Protein, Total 6.2 g/dL (6.4-8.2); Sodium Level 140 mmol/L (136-145)
[2022-05-25] MEDS: 0.9% Normal Saline 1,000 ML 100 ML IV ×2 (06:26→16:33)
[2022-05-25] MEDS: Menthol/Lanolin/Calamine/Znox 113 GM Tube 1 APPLIC TOPICAL ×3 (06:28→21:16)
[2022-05-25] MEDS: Levothyroxine 50 MCG Tablet PO (06:29)
--- NOTE | 2022-05-25 07:01 | PN.HOSP_ITS ---
Subjective Subjective Mrs. Rod is a 77-year-old female who presents emergency department with fever, generalized weakness, and inability to walk that has been ongoing for approximately 1 day. She evidently was in her usual state of health until the day of presentation when she started to feel weak and had a fever. She was walking from the bathroom when she had a fall and EMS was called. She was found to have a fever at that time. In the emergency department she was borderline hypotensive with a heart rate of 125 respiratory of 25 and a T-max of 102 in the emergency department. She had a leukocytosis with a left shift and was found to have YAMILEX with a serum creatinine of 3.16. Her lactic acid was 7.1. She was admitted to the ICU and diagnosed with sepsis resuscitated and placed on broad- spectrum antibiotics. Patient states she is feeling better at the time of my evaluation. Her mental status is improving and she was alert and oriented at time. She denies any current complaints although she did states she was fairly tired and had no appetite at the time. Thus far her blood pressures have been fluid responsive however she may still require pressors as her blood pressure is somewhat borderline low and if her MAP dips below 65 since she has completed fluid resuscitation I will go ahead and start pressors. Objective Data Objective Data Vital Signs: Vital Signs Temp Pulse Resp BP Pulse Ox O2 Del Method 101.1 F H 94 20 H 88/51 L 100 Room Air 05/25/22 06:00 05/25/22 06:00 05/25/22 06:00 05/25/22 06:00 05/25/22 06:00 05/25/22 06:00 Oxygen Delivery Method Room Air Weight: 64.6 kg Body Mass Index (BMI) 23.0 Intake & Output: Intake and Output for Last 24 Hours 05/23/22 05/24/22 05/25/22 23:59 23:59 23:59 Intake Total 2550 / 2550 1408.33 / 1408.33 Output Total 750 / 750 Balance 2550 / 2550 658.33 / 658.33 Lab / Micro Data Result Diagrams: 05/25/22 00:52 05/25/22 00:52 Labs: Laboratory Results - last 24 hr 05/24/22 17:47: WBC 18.8 H, RBC 3.80 L, Hgb 11.0 L, Hct 34.8 L, MCV 91.6, MCH 28.9, MCHC 31.6 L, RDW Std Deviation 48.8 H, RDW Coeff of Festus 14.5, Plt Count 379, MPV 10.1, Immature Gran % (Auto) 1.100 H, Neut % (Auto) 87.0 H, Lymph % (Auto) 4.4 L, [place] % (Auto) 7.2, Eos % (Auto) 0.1, Baso % (Auto) 0.2, Absolute Neuts (auto) 16.4 H, Absolute Lymphs (auto) 0.83, Nucleated RBC % 0 05/24/22 17:47: PT 15.0 H, INR 1.2, APTT 36.4 H 05/24/22 17:47: Sodium 136, Potassium 5.5 H, Chloride 104, Carbon Dioxide 17.0 L , Anion Gap 15, BUN 50 H, Creatinine 3.16 H, Estim Creat Clear Calc 13.63, Est GFR (MDRD) Af Amer 18 L, Est GFR (MDRD) Non-Af 15 L, BUN/Creatinine Ratio 15.8, Glucose 279 H, Calcium 9.3, Total Bilirubin 0.80, AST 10 L, ALT 10 L, Alkaline Phosphatase 84, Troponin I High Sens 8, Total Protein 8.4 H, Albumin 2.9 L, Globulin 5.5 H, Albumin/Globulin Ratio 0.5 L 05/24/22 18:05: Lactic Acid 7.1 H* 05/24/22 18:20: Urine Color Yellow, Urine Clarity Cloudy, Urine pH 6.0, Ur Specific [place] 1.015, Urine Protein 500 H, Urine Glucose (UA) 100 H, Urine Ketones 5 H, Urine Occult Blood 250 H, Urine Nitrite Negative, Urine Bilirubin Negative, Urine Urobilinogen Normal, Ur Leukocyte Esterase 500 H, Urine RBC 0 SEEN, Urine WBC >100 SEEN, Ur Squamous Epith Cells 0 SEEN, Urine Bacteria 0 SEEN, Urine Mucus 0 SEEN 05/24/22 22:29: POC Glucose 206 H 05/24/22 23:10: Sodium 140, Potassium 4.3, Chloride 112 H, Carbon Dioxide 21.0, Anion Gap 7, BUN 45 H, Creatinine 2.42 H, Estim Creat Clear Calc 17.80, Est GFR (MDRD) Af Amer 25 L, Est GFR (MDRD) Non-Af 21 L, BUN/Creatinine Ratio 18.6, Glucose 215 H, Calcium 8.0 L, Total Bilirubin 0.50, AST 9 L, ALT 7 L, Alkaline Phosphatase 61, Total Protein 6.4, Albumin 2.1 L, Globulin 4.3 H, Albumin/Globulin Ratio 0.5 L 05/24/22 23:10: Lactic Acid 1.3 05/25/22 00:52: WBC 12.4 H, RBC 3.03 L, Hgb 8.5 L, Hct 27.8 L, MCV 91.7, MCH 28.1, MCHC 30.6 L, RDW Std Deviation 49.1 H, RDW Coeff of Festus 14.6, Plt Count 260, MPV 9.7, Immature Gran % (Auto) 1.200 H, Neut % (Auto) 85.5 H, Lymph % (Auto) 5.2 L, [place] % (Auto) 7.6, Eos % (Auto) 0.2, Baso % (Auto) 0.3, Absolute Neuts (auto) 10.6 H, Absolute Lymphs (auto) 0.64 L, Nucleated RBC % 0 05/25/22 00:52: Sodium 140, Potassium 4.3, Chloride 114 H, Carbon Dioxide 19.0 L , Anion Gap 7, BUN 38 H, Creatinine 2.00 H, Estim Creat Clear Calc 21.53, Est GFR (MDRD) Af Amer 31 L, Est GFR (MDRD) Non-Af 26 L, BUN/Creatinine Ratio 19.0, Glucose 175 H, Calcium 8.0 L, Total Bilirubin 0.50, AST 11 L, ALT 11 L, Alkaline Phosphatase 69, Total Protein 6.2 L, Albumin 2.1 L, Globulin 4.1, Albumin/Globulin Ratio 0.5 L Micro: Microbiology 05/24/22 18:20 Nasal Secretion SARS-CoV-2 & FLU Antigen (Rapid) - Final Radiography Diagnostic Testing: Radiology Impression Brain CT 05/24/22 18:13 IMPRESSION: There are no acute findings. Chronic involutional changes of the brain. Electronically Signed: Jacques Cruz MD at 19:10 EST , Chest X-Ray 05/24/22 18:40 IMPRESSION: No acute findings in the chest. Electronically Signed: Jacques Cruz MD at 19:07 EST , Rhythm Strip Rhythm Strip: Sinus Tach Rate: 115 Ectopy: None Physical Exam Const alert, oriented x3, no apparent distress and average body habitus Constitutional Narrative: Elderly white female, lying in bed, appears tired, sleeping upon my arrival but awakens easily HEENT head/scalp atraumatic and moist oral mucous membranes HEENT Narrative: A dentulous, Mallampati 2, no thrush Head and Scalp: normocephalic Resp normal respiratory effort, no retractions, no use of accessory muscles and clear to auscultation bilaterally Auscultation: Negative for crackles, rhonchi or wheezes Cardio regular rate, regular rhythm, S1 normal heart sound, S2 normal heart sound, no murmurs, no rub, no gallops and no clicks GI normal to inspection, nondistended, normoactive bowel sounds, soft to palpation and non-tender Extremity no clubbing, cyanosis or edema Extremity Narrative: 2+ pedal pulses Neuro oriented x3, moves all extremities and no focal motor deficits Speech: speech normal Psych Psych Narrative: Patient appears tired but very pleasant and appropriately interactive Assessment & Plan Assessment/Plan (1) Sepsis: (2) Metabolic encephalopathy: (3) YAMILEX (acute kidney injury): PLAN: Plan Sepsis -Presented with hypotension, lactic acidosis, leukocytosis, tachycardia, tachypnea, fever, YAMILEX, mental status changes -Source is suspected to be urine -Continue ceftriaxone but if clinically does not improve may need to broaden antibiotics -Thus far has been fluid responsive receiving 30 cc/kg of body weight but blood pressures are still borderline normal and patient may progress to septic shock requiring pressors -Continue to monitor blood pressures and if maps start to dip below 65 mmHg we will go ahead and initiate Levophed -Leukocytosis is improving with current treatment -Since urine is suspected source we will obtain renal ultrasound to assess for any stones or obstruction/pyelonephritis Lactic acidosis -Resolved -7.1 on presentation and now 1.3 YAMILEX -Baseline serum creatinine appears to be between 1 and 1.2 -Serum creatinine on presentation was 3.16 -Current serum creatinine is 2 -hold home losartan -Continue IV fluids -Continue to avoid nephrotoxins as able -Repeat BMP in a.m. 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 Anemia -Patient did appear to be hemoconcentrated on presentation -We will check stool for guaiac -Suspect some of her drop is dilutional -Repeat CBC in a.m. DM-2 -Hold home oral agents -cont SSI -Accuchecks HPL -hold statin HTN -currently hypotensive -holding home metoprolol -hold losartan CAD -see above -continue ASA Parkinson's Disease -cont carbadopa/levodopa Overactive bladder -solifenacin Hypothyroidism -cont thyroid replacement Dementia -continue memantine DVT prophylaxis -cont subq heparin Code Status -Full Code Charges/Coding Visit Charges Inpatient E&M: 41098 Subs Hosp L2
--- NOTE | 2022-05-25 07:04 | EX.PCM.CONCC ---
Assessment & Plan Assessment/Plan (1) Sepsis: (2) Acute UTI: (3) Metabolic encephalopathy: PLAN: Plan RECOMMENDATIONS: 1. Continue antibiotics 2. Additional boluses of LR if needed for hypotension 3. Attempt to clarify history 4. Continue parkinsonian meds 5. Monitor blood sugars closely. Increase sliding scale/basal insulin if necessary 6. Agree with holding ARB IMPRESSIONS: 1. Severe sepsis secondary to UTI Patient responsive to fluid resuscitation. Patient did have an elevated lactate and acute kidney injury to indicate endorgan damage. Patient has been placed on ceftriaxone and is tolerating well. This is likely adequate given patient's lack of MDRO in the past. Patient may require additional fluid boluses through the day today. Patient is saturating well on room air, so this should not be a problem. 2. Acute kidney injury Patient's baseline creatinine appears to be approximately 1-1.2. Patient presented with a creatinine over 3. This appears to be responding to hemodynamic support. Ultrasound has been ordered to evaluate for obstructive component. 3. Anemia Unclear etiology. Patient's baseline appears to be approximately 11-12. Patient at 8.5 this morning. Likely an element of dilution secondary to problem #1. However, we will need to monitor clinically for signs and symptoms of acute blood loss. No indication for transfusion at this time. 4. Advanced age/Parkinson's/type 2 diabetes/anxiety/hyperlipidemia/hypothyroidism Complicates care, management, recovery and prognosis. We will have to watch blood sugars closely given high endogenous steroid release with problem #1. Delirium protocol. Okay to continue with parkinsonian meds. HPI Consult Data Date of Consult: 05/25/22 HPI Narrative Reason for Consultation: Sepsis HPI Narrative: LOYDA GARCIA is a 77 F, with past medical history listed below, who presents to [facility] on 06/12 secondary to generalized weakness, disorientation and fall. Patient reportedly has a history of Parkinson's, but has had decreased mentation and falls recently. Patient is not able to provide much additional information. In the ER, patient was noted to have a temperature of 101.9 ?F, tachycardia to 125 bpm and tachypnea at 25 breaths/min. Patient was saturating room air at 97%. Laboratory data showed a white blood cell count of 18.8, hemoglobin of 11 and platelets of 379. Coagulation studies were relatively normal. Chemistry showed a potassium of 5.5, bicarb of 17 and a creatinine of 3.16. Patient's glucose was elevated at 279 and liver enzymes were acceptable. Initial lactate was elevated at 7.1 and urinalysis was suggestive of a possible UTI. CT of the head was unremarkable, along with a chest x-ray. Given concerns for sepsis, patient was given fluid resuscitation, antibiotics and admitted to the intensive care unit. Since being in the intensive care unit, patient's blood pressures have been marginal, but no additional fluid boluses have been required. Patient is not reporting any pain, but otherwise does not have much additional information and just needs to sleep. [facility] Medical History Benign essential hypertension Generalized anxiety disorder GERD (gastroesophageal reflux disease) HLD (hyperlipidemia) Parkinson's disease Type II diabetes mellitus Home Medications levothyroxine 50 mcg tablet 50 mcg PO DAILY 08/20/19 [History Last Taken Unknown] lorazepam 0.5 mg tablet 0.5 mg PO QHS 08/20/19 [History Last Taken Unknown] losartan 50 mg tablet 50 mg PO DAILY 08/20/19 [History Last Taken Unknown] metformin 1,000 mg tablet 1,000 mg PO BID 08/20/19 [History Last Taken Unknown] metoprolol tartrate 25 mg tablet 25 mg PO BID 08/20/19 [History Last Taken Unknown] simvastatin 20 mg tablet 20 mg PO QHS 08/20/19 [History Last Taken Unknown] aspirin 81 mg tablet 81 mg PO DAILY 05/24/22 [History Last Taken Unknown] carbidopa 25 mg-levodopa 100 mg tablet 1.5 tab PO TID 05/24/22 [History Last Taken Unknown] glipizide 2.5 mg tablet, extended release 24 hr 2.5 mg PO DAILY 05/24/22 [History Last Taken Unknown] memantine 10 mg tablet 10 mg PO DAILY 05/24/22 [History Last Taken Unknown] risperidone 0.5 mg tablet 0.5 mg PO DAILY 05/24/22 [History Last Taken Unknown] solifenacin 5 mg tablet 5 mg PO DAILY 05/24/22 [History Last Taken Unknown] Allergy/AdvReac Type Severity Reaction Status Date / Time No Known Allergies Allergy Verified 08/20/19 11:02 Family History Mother Heart disease Hypertension Father No problems noted. Surgical History Hx of CABG Social History household members: spouse housing: house Smoking Status: Never smoker alcohol intake: never substance use type: does not use ROS Review of Systems ROS Unobtainable: due to mental status Physical Exam Const no apparent distress Constitutional Narrative: Resting comfortably. Awakens only briefly. Alert and oriented x2. HEENT normocephalic and head/scalp atraumatic Eyes PERRL, EOMs intact bilaterally and conjunctivae normal Neck full ROM Chest inspection of chest normal Resp normal respiratory effort and no use of accessory muscles Auscultation: Negative for rales, rhonchi or wheezes Cardio regular rhythm, S1 normal heart sound, S2 normal heart sound, no murmurs, no rub and no gallops Rate: tachycardic GI normal to inspection, nondistended, normoactive bowel sounds Extremity no clubbing, cyanosis or edema Skin no rashes or lesions noted Neuro CN's II-XII intact bilaterally and moves all extremities Neuro Narrative: Coarse tremor noted with waking up Psych Mood & Affect: flat affect Medical Records Data Medical records narrative: Patient has grown both E. coli and Klebsiella on previous hospitalizations. No significant drug resistances were noted at that time. Patient does not have an echocardiogram or PFT in the system. Lab / Micro Data Attestation: I reviewed the patient's lab results. Lab results narrative: Baseline creatinine appears to be approximately 1-1.2. Result Diagrams: 05/25/22 00:52 05/25/22 00:52 Labs: Laboratory Results - last 24 hr 05/24/22 17:47: WBC 18.8 H, RBC 3.80 L, Hgb 11.0 L, Hct 34.8 L, MCV 91.6, MCH 28.9, MCHC 31.6 L, RDW Std Deviation 48.8 H, RDW Coeff of Festus 14.5, Plt Count 379, MPV 10.1, Immature Gran % (Auto) 1.100 H, Neut % (Auto) 87.0 H, Lymph % (Auto) 4.4 L, [place] % (Auto) 7.2, Eos % (Auto) 0.1, Baso % (Auto) 0.2, Absolute Neuts (auto) 16.4 H, Absolute Lymphs (auto) 0.83, Nucleated RBC % 0 05/24/22 17:47: PT 15.0 H, INR 1.2, APTT 36.4 H 05/24/22 17:47: Sodium 136, Potassium 5.5 H, Chloride 104, Carbon Dioxide 17.0 L, Anion Gap 15, BUN 50 H, Creatinine 3.16 H, Estim Creat Clear Calc 13.63, Est GFR (MDRD) Af Amer 18 L, Est GFR (MDRD) Non-Af 15 L, BUN/Creatinine Ratio 15.8, Glucose 279 H, Calcium 9.3, Total Bilirubin 0.80, AST 10 L, ALT 10 L, Alkaline Phosphatase 84, Troponin I High Sens 8, Total Protein 8.4 H, Albumin 2.9 L, Globulin 5.5 H, Albumin/Globulin Ratio 0.5 L 05/24/22 18:05: Lactic Acid 7.1 H* 05/24/22 18:20: Urine Color Yellow, Urine Clarity Cloudy, Urine pH 6.0, Ur Specific [place] 1.015, Urine Protein 500 H, Urine Glucose (UA) 100 H, Urine Ketones 5 H, Urine Occult Blood 250 H, Urine Nitrite Negative, Urine Bilirubin Negative, Urine Urobilinogen Normal, Ur Leukocyte Esterase 500 H, Urine RBC 0 SEEN, Urine WBC >100 SEEN, Ur Squamous Epith Cells 0 SEEN, Urine Bacteria 0 SEEN, Urine Mucus 0 SEEN 05/24/22 22:29: POC Glucose 206 H 05/24/22 23:10: Sodium 140, Potassium 4.3, Chloride 112 H, Carbon Dioxide 21.0, Anion Gap 7, BUN 45 H, Creatinine 2.42 H, Estim Creat Clear Calc 17.80, Est GFR (MDRD) Af Amer 25 L, Est GFR (MDRD) Non-Af 21 L, BUN/Creatinine Ratio 18.6, Glucose 215 H, Calcium 8.0 L, Total Bilirubin 0.50, AST 9 L, ALT 7 L, Alkaline Phosphatase 61, Total Protein 6.4, Albumin 2.1 L, Globulin 4.3 H, Albumin/Globulin Ratio 0.5 L 05/24/22 23:10: Lactic Acid 1.3 05/25/22 00:52: WBC 12.4 H, RBC 3.03 L, Hgb 8.5 L, Hct 27.8 L, MCV 91.7, MCH 28.1, MCHC 30.6 L, RDW Std Deviation 49.1 H, RDW Coeff of Festus 14.6, Plt Count 260, MPV 9.7, Immature Gran % (Auto) 1.200 H, Neut % (Auto) 85.5 H, Lymph % (Auto) 5.2 L, [place] % (Auto) 7.6, Eos % (Auto) 0.2, Baso % (Auto) 0.3, Absolute Neuts (auto) 10.6 H, Absolute Lymphs (auto) 0.64 L, Nucleated RBC % 0 05/25/22 00:52: Sodium 140, Potassium 4.3, Chloride 114 H, Carbon Dioxide 19.0 L, Anion Gap 7, BUN 38 H, Creatinine 2.00 H, Estim Creat Clear Calc 21.53, Est GFR (MDRD) Af Amer 31 L, Est GFR (MDRD) Non-Af 26 L, BUN/Creatinine Ratio 19.0, Glucose 175 H, Calcium 8.0 L, Total Bilirubin 0.50, AST 11 L, ALT 11 L, Alkaline Phosphatase 69, Total Protein 6.2 L, Albumin 2.1 L, Globulin 4.1, Albumin/Globulin Ratio 0.5 L Micro: Microbiology 05/24/22 18:20 Nasal Secretion SARS-CoV-2 & FLU Antigen (Rapid) - Final Rhythm Strip Rhythm Strip: Sinus Tach Rate: 115 Ectopy: None Radiology Impression Brain CT 05/24/22 18:13 IMPRESSION: There are no acute findings. Chronic involutional changes of the brain. Electronically Signed: Jacques Cruz MD at 19:10 EST , Chest X-Ray 05/24/22 18:40 IMPRESSION: No acute findings in the chest. Electronically Signed: Jacques Cruz MD at 19:07 EST , Charges/Coding Visit Charges Inpatient E&M: 42586 Init Hosp L3
[2022-05-25] MEDS: Carbidopa/Levodopa 25/100 Tablet PO ×3 (07:30→18:07)
[2022-05-25 08:10] LABS: Bedside Glucose 130 mg/dL (74-106)
[2022-05-25] MEDS: RisperiDONE 0.5 MG Tablet PO (09:13)
[2022-05-25] MEDS: Heparin Injection (Vial) 5,000 UNIT/ML VIAL 5000 UNIT SC ×2 (09:13→21:10)
[2022-05-25] MEDS: Aspirin 81 MG TAB.CHEW PO (09:14)
[2022-05-25 11:26] LABS: Bedside Glucose 139 mg/dL (74-106)
[2022-05-25] MEDS: 0.9% Saline Lock 10 ML Syringe IV (12:17)
[2022-05-25] MEDS: Glucerna Shake 120 ML LIQUID PO (12:18)
[2022-05-25 18:26] LABS: Bedside Glucose 136 mg/dL (74-106)
[2022-05-25] MEDS: LORazepam 0.5 MG Tablet PO (21:11)
[2022-05-25 21:36] LABS: Bedside Glucose 137 mg/dL (74-106)
[2022-05-26] VITALS (12 sets, daily range): BP systolic 95–129; BP diastolic 24–79; PULSE 59–95; RESP 16–21; TEMP 37.1–38.3; O2SAT 96–100
[2022-05-26] MEDS: 0.9% Normal Saline 1,000 ML 100 ML IV ×2 (02:29→11:15)
[2022-05-26 04:31] LABS: Absolute Lymphocyte Count 0.67 X10^3/uL (0.83-4.51); Absolute Neutrophil Count 5.6 X10^3/uL (2.0-7.7); Basophil# 0.03 X10^3/uL; Basophil% 0.4 % (0-1); Eosinophil# 0.07 X10^3/uL; Hematocrit 31.2 % (37-47); Hemoglobin 9.4 g/dL (12.0-15.0); Lymphocyte # 0.67 X10^3/ul (0.83-4.51); Lymphocyte % 9.5 % (19-41); Mean Corp Hgb Conc 30.1 g/dL (32-36); Mean Corpuscular Volume 92.9 fL (81-99); Mean Platelet Vol. 9.8 fl (6.2-12.0); Monocyte# 0.55 X10^3/uL; Monocyte% 7.8 % (0-10); NRBC Flagged by Analyzer 0 % (0-5); Neutrophil # 5.61 X10^3/uL (2.7-7.7); Neutrophil % 79.2 % (47-70); Platelet Count 248 K/mm3 (150-450); RBC Distribution Width SD 51.3 fl (35.1-43.9); Red Blood Count 3.36 M/mm3 (4.2-5.4); White Blood Count 7.1 K/mm3 (4.4-11.0)
[2022-05-26] MEDS: 0.9% Saline Lock 10 ML Syringe IV (04:31)
[2022-05-26] MEDS: Acetaminophen 325 MG Tablet 650 MG PO (04:32)
[2022-05-26] MEDS: Ondansetron 4 MG/2 ML Vial IV (04:32)
[2022-05-26 04:47] LABS: Anion Gap 6 (5-15); BUN 24 mg/dL (7-18); BUN/Creat Ratio 15.2 RATIO (10-20); Calcium,Total 8.4 mg/dL (8.5-10.1); Chloride 119 mmol/L (98-107); Creatinine, Serum 1.58 mg/dL (0.55-1.02); EST Glomerular Filtration Rate 34 mL/min (>60); Est Glom Filt Rate - Afr Amer 41 mL/min (>60); Estimated Creatinine Clearance 27.26 ml/min; Glucose 116 mg/dL (74-106); Magnesium 1.4 mg/dL (1.6-2.6); Phosphorus 2.8 mg/dL (2.5-4.9); Potassium 4.5 mmol/L (3.5-5.1); Sodium Level 145 mmol/L (136-145)
[2022-05-26] MEDS: Levothyroxine 50 MCG Tablet PO (06:17)
[2022-05-26] MEDS: Menthol/Lanolin/Calamine/Znox 113 GM Tube 1 APPLIC TOPICAL ×3 (06:17→20:48)
[2022-05-26] MEDS: Carbidopa/Levodopa 25/100 Tablet PO ×3 (06:17→16:10)
--- NOTE | 2022-05-26 06:58 | PN.CC_ITS ---
Assessment & Plan Assessment/Plan (1) Sepsis: (2) Acute UTI: (3) Metabolic encephalopathy: PLAN: Plan RECOMMENDATIONS: 1. Discontinue IV fluids and advance diet. 2. Continue antimicrobials as ordered. 3. Magnesium repletion is ordered. 4. Encourage incentive spirometer use and mobilize patient as tolerated. IMPRESSIONS: 1. Gram-negative sepsis The patient presented to the hospital with sepsis due to gram-negative cystitis with secondary hematogenous spread, along with acute sepsis related organ dysfunction as evidenced by lactic acidemia and acute kidney injury. The patient has been adequately volume resuscitated and remains hemodynamically stable. The patient has demonstrated growth of pansensitive Klebsiella from urine in the past. Plan to continue current antimicrobials. Supplemental IV fluids can be discontinued from my perspective. 2. Acute kidney injury Likely prerenal in etiology in the setting of #1. Creatinine has improved with volume expansion. Continue to monitor urine output for now. No current indication for renal replacement therapy. 3. Anemia The patient presented with acute on chronic anemia. However, hemoglobin remained stable at the present time. Continue to monitor H&H and transfuse if hemoglobin drops below 7 g/dL. There are no overt signs of any gastrointestinal blood loss. 4. History of Parkinson's/type 2 diabetes/anxiety/hyperlipidemia/hypothyroidism Complicates care, management, recovery and prognosis. Continue home medication as indicated along with sliding scale insulin coverage. This note was generated with [employer] dictation software. It may contain incorrect words, spelling, and punctuation that were not noted in checking the note before signing. Subjective Subjective The patient was seen and examined at the bedside this morning. Events from the last 24 hours have been reviewed. The patient has been febrile overnight with a Tmax of 102.4 ?F. Blood pressures have been somewhat tenuous. However, she does remain stable from a respiratory perspective on room air. Patient is currently documented to be overall net +4.2 L for the hospitalization. Creatinine has improved to 1.58. Magnesium is low at 1.4. The patient does report some mild abdominal discomfort and nausea this morning. Objective Data Objective Data The patient's most recent lab work, culture data and imaging studies have all been personally reviewed. Blood culture dated May 24 was positive for gram- negative sanjuana. 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 Vital Signs: Vital Signs Temp Pulse Resp BP Pulse Ox O2 Del Method 100 F H 76 18 103/52 L 97 Room Air 05/26/22 06:00 05/26/22 06:00 05/26/22 06:00 05/26/22 06:00 05/26/22 06:00 05/26/22 06:00 Oxygen Delivery Method Room Air Weight: 144 lb 9.972 oz Body Mass Index (BMI) 23.0 Intake & Output: Intake and Output for Last 24 Hours 05/24/22 05/25/22 05/26/22 23:59 23:59 23:59 Intake Total 2550 / 2550 2758.33 / 2758.33 1243.33 / 1243.33 Output Total 1595 / 1595 675 / 675 Balance 2550 / 2550 1163.33 / 1163.33 568.33 / 568.33 Lab / Micro Data Attestation: I reviewed the patient's lab results. Result Diagrams: 05/26/22 04:20 05/26/22 04:20 Labs: Laboratory Results - last 24 hr 05/25/22 07:49: POC Glucose 130 H 05/25/22 11:04: POC Glucose 139 H 05/25/22 18:03: POC Glucose 136 H 05/25/22 21:07: POC Glucose 137 H 05/26/22 04:20: WBC 7.1, RBC 3.36 L, Hgb 9.4 L, Hct 31.2 L, MCV 92.9, MCH 28.0, MCHC 30.1 L, RDW Std Deviation 51.3 H, RDW Coeff of Festus 15.0 H, Plt Count 248, MPV 9.8, Immature Gran % (Auto) 2.100 H, Neut % (Auto) 79.2 H, Lymph % (Auto) 9.5 L, [place] % (Auto) 7.8, Eos % (Auto) 1.0, Baso % (Auto) 0.4, Absolute Neuts (auto) 5.6, Absolute Lymphs (auto) 0.67 L, Nucleated RBC % 0 05/26/22 04:20: Sodium 145, Potassium 4.5, Chloride 119 H, Carbon Dioxide 20.0 L , Anion Gap 6, BUN 24 H, Creatinine 1.58 H, Estim Creat Clear Calc 27.26, Est GFR (MDRD) Af Amer 41 L, Est GFR (MDRD) Non-Af 34 L, BUN/Creatinine Ratio 15.2, Glucose 116 H, Calcium 8.4 L, Phosphorus 2.8, Magnesium 1.4 L Micro: Microbiology 05/24/22 18:30 Blood Culture (Wb) - Left Hand Blood Culture - Preliminary 05/24/22 18:20 Urine Catheter - No Urine Culture - Preliminary GNR 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 Extremity no clubbing, cyanosis or edema Skin no rashes or lesions noted Neuro CN's II-XII intact bilaterally and no focal motor deficits Psych Mood & Affect: flat affect Charges/Coding Visit Charges Inpatient E&M: 38188 Subs Hosp L2
--- NOTE | 2022-05-26 07:00 | US_ITS ---
STUDY: RENAL ULTRASOUND - COMPLETE REASON FOR EXAM: Female, 77 years old. UTI with sepsis TECHNIQUE: Ultrasound evaluation of the kidneys was performed with real-time and static albrecht-scale imaging. COMPARISON: None. FINDINGS: RIGHT KIDNEY: Normal location of the right kidney, which is normal in size. The right kidney measures 10.8 cm x 4.9 cm x 4.4 cm. There is a normal cortex of the right kidney. The renal cortex measures 1.5 cm. There is no right renal mass or cyst. There are no right renal calculi. Mild to moderate degree of right hydronephrosis. DISTAL RIGHT URETER: There is non-visualization of the distal right ureter. There is no demonstrated right ureterovesical junction calculus. There is no demonstrated right ureteral jet. LEFT KIDNEY: Normal location of the left kidney, which is normal in size. The left kidney measures 9.6 cm x 5.4 cm x 5.1 cm. There is a normal cortex of the left kidney. The renal cortex measures 2.3 cm. There is no left renal mass or cyst. There are no left renal calculi. There is no left hydronephrosis. DISTAL LEFT URETER: There is non-visualization of the distal left ureter. There is no demonstrated left ureterovesical junction calculus. There is no demonstrated left ureteral jet. BLADDER: A PERRY catheter is seen within the urinary bladder. Urinary bladder is empty at the time of the examination. US/Kidney and Bladder IMPRESSION: Mild to moderate degree of right-sided hydronephrosis. Electronically Signed: Maico Brothers MD at 13:10 EST ,
[2022-05-26] MEDS: Aspirin 81 MG TAB.CHEW PO (07:47)
[2022-05-26] MEDS: RisperiDONE 0.5 MG Tablet PO (07:48)
[2022-05-26] MEDS: Heparin Injection (Vial) 5,000 UNIT/ML VIAL 5000 UNIT SC ×2 (07:48→20:45)
[2022-05-26] MEDS: Glucerna Shake 120 ML LIQUID PO ×2 (07:50→11:15)
[2022-05-26 08:25] LABS: Bedside Glucose 112 mg/dL (74-106)
[2022-05-26] MEDS: Insulin Lispro 100 UNIT/ML INSULN.PEN SC (11:18)
[2022-05-26 11:40] LABS: Bedside Glucose 194 mg/dL (74-106)
--- NOTE | 2022-05-26 15:34 | CASEMGMT ---
Social Work SW met w/pt in room, reviewed prior level of function and anticipated discharge plan. Pt alert and oriented, though exhibiting some forgetfulness when SW spoke w/her. PCP: [facility] Specialists: Pt states has specialists but cannot remember their names. She knows she has a neurologist but not able to think of the name at present. Insurance/Prescription benefit: [employer], pt states they started this insurance at the start of the year. Living arrangements/prior level of function: Pt lives home w/ in a one story home, no steps to get in. Pt states helps with everything, including cooking, cleaning, med management, showers, dressing, driving. Pt states was able to get to the restroom on her own prior to this hospitalization. LW/POA: Pt has not completed these documents, states it would be her she would want to make decisions for her if needed. LNOK: Pt states has two sons, one is in [place], the other is also local but she can't remember where. SW inquired if they help she and at all, she states they call. DME: charlie Pillai HHC/SNF: Pt states has had a nurse to the home before, never been to a SNF. Plan: TBD. SW spoke w/pt about plan from here, pt wants to go home. Pt does state is weaker than her usual self, however would still prefer to go home. We talked about pt going to a [facility] facility, pt not agreeable to this at this time. SW did give pt a list of SNFs from [facility] in pt's preferred geographic area, in her insurance network, complete with quality and resource use data. SW inquired if pt's has been in yet, she states he has not but does think he will come in to visit. SW asked her to review the list in the event pt is not able to go home and correction is needed for rehab. Pt states understanding. Pt also has not yet had PT/OT, so SW explained will come back to see her tomorrow, to see how therapy went and to discuss discharge options again. SW offered to call to explain what we discussed, pt declined for SW to do this. SW will continue to follow, will follow up Thursday once pt has had PT/OT and revisit discharge plan. BO Jorge
--- NOTE | 2022-05-26 15:49 | PN.HOSP_ITS ---
Subjective Subjective Patient states she is feeling better today. She never did require pressors despite us ordering them yesterday. Today at my arrival she is sitting up eating breakfast and states she now has some appetite. We will go ahead and transfer out of the ICU. Objective Data Objective Data Vital Signs: Vital Signs Temp Pulse Resp BP Pulse Ox O2 Del Method 98.8 F 75 21 H 123/79 H 100 Room Air 05/26/22 15:00 05/26/22 15:00 05/26/22 15:00 05/26/22 15:00 05/26/22 15:00 05/26/22 15:00 Oxygen Delivery Method Room Air Weight: 65.6 kg Body Mass Index (BMI) 23.0 Intake & Output: Intake and Output for Last 24 Hours 05/24/22 05/25/22 05/26/22 23:59 23:59 23:59 Intake Total 2550 / 2550 2758.33 / 2758.33 2384.00 / 2384.00 Output Total 1595 / 1595 925 / 925 Balance 2550 / 2550 1163.33 / 1163.33 1459.00 / 1459.00 Lab / Micro Data Result Diagrams: 05/26/22 04:20 05/26/22 04:20 Labs: Laboratory Results - last 24 hr 05/25/22 18:03: POC Glucose 136 H 05/25/22 21:07: POC Glucose 137 H 05/26/22 04:20: WBC 7.1, RBC 3.36 L, Hgb 9.4 L, Hct 31.2 L, MCV 92.9, MCH 28.0, MCHC 30.1 L, RDW Std Deviation 51.3 H, RDW Coeff of Festus 15.0 H, Plt Count 248, MPV 9.8, Immature Gran % (Auto) 2.100 H, Neut % (Auto) 79.2 H, Lymph % (Auto) 9.5 L, [place] % (Auto) 7.8, Eos % (Auto) 1.0, Baso % (Auto) 0.4, Absolute Neuts (auto) 5.6, Absolute Lymphs (auto) 0.67 L, Nucleated RBC % 0 05/26/22 04:20: Sodium 145, Potassium 4.5, Chloride 119 H, Carbon Dioxide 20.0 L , Anion Gap 6, BUN 24 H, Creatinine 1.58 H, Estim Creat Clear Calc 27.26, Est GFR (MDRD) Af Amer 41 L, Est GFR (MDRD) Non-Af 34 L, BUN/Creatinine Ratio 15.2, Glucose 116 H, Calcium 8.4 L, Phosphorus 2.8, Magnesium 1.4 L 05/26/22 07:46: POC Glucose 112 H 05/26/22 11:18: POC Glucose 194 H Micro: Microbiology 05/24/22 18:30 Blood Culture (Wb) - Left Hand Blood Culture - 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 Electronically Signed: Maico Brothers MD at 13:10 EST , Rhythm Strip Rhythm Strip: Sinus Tach Rate: 115 Ectopy: None Physical Exam Const alert, oriented x3, no apparent distress and average body habitus Constitutional Narrative: Elderly white female, sitting up in bed eating breakfast, watching television well, appears much improved HEENT head/scalp atraumatic and moist oral mucous membranes HEENT Narrative: Dentition is poor, Mallampati is 2, no thrush Head and Scalp: normocephalic Resp normal respiratory effort, no retractions, no use of accessory muscles and clear to auscultation bilaterally Auscultation: Negative for crackles, rhonchi or wheezes Cardio regular rate, regular rhythm, S1 normal heart sound, S2 normal heart sound, no murmurs, no rub, no gallops and no clicks GI normal to inspection, nondistended, normoactive bowel sounds, soft to palpation and non-tender Extremity no clubbing, cyanosis or edema Extremity Narrative: 2+ pedal pulses Neuro oriented x3, moves all extremities and no focal motor deficits Neuro Narrative: Slight tremor noted on exam seems to be intention and related to her Parkinson's Speech: speech normal Psych affect normal Psych Narrative: Patient appears as if she is feeling much better, pleasant, appropriately interactive Assessment & Plan Assessment/Plan (1) Sepsis: (2) Metabolic encephalopathy: (3) YAMILEX (acute kidney injury): PLAN: Plan Sepsis secondary to Klebsiella oxytoca bacteremia/UTI -Presented with hypotension, lactic acidosis, leukocytosis, tachycardia, tachypnea, fever, YAMILEX, mental status changes -Urine is positive for Klebsiella and blood is positive for gram-negative sanjuana- 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 [employer] -Highly suspect this will be the same organism -We will need at least 7 days of IV antibiotics -Retroperitoneal ultrasound performed to assess kidneys and that shows mild to moderate right-sided hydronephrosis with no noted calculi -We will consult urology to assess if any intervention needs to be done given her urosepsis on presentation -No pressors required -Appreciate critical care medicine input -Transfer from ICU YAMILEX -Baseline serum creatinine appears to be between 1 and 1.2 -Serum creatinine on presentation was 3.16 -Current serum creatinine is 1.58 -Continue to hold home losartan -Continue IV fluids but transition to LR as patient is getting markedly hyperchloremic -Continue to avoid nephrotoxins as able -Repeat BMP in a.m. Metabolic encephalopathy -Resolved Leukocytosis -Resolved Anemia -Patient did appear to be hemoconcentrated on presentation -We will check stool for guaiac--> still pending -Suspect some of her drop is dilutional -Check iron studies -Hemoglobin has stabilized in the mid 9 range -Repeat CBC in a.m. DM-2 -Hold home oral agents -cont SSI -Accuchecks HPL -hold statin HTN -Hypotension has resolved -holding home metoprolol -hold losartan -May be able to begin reinitiation of home antihypertensives tomorrow CAD -see above -continue ASA Parkinson's Disease -cont carbadopa/levodopa Overactive bladder -solifenacin Hypothyroidism -cont thyroid replacement Dementia -continue memantine DVT prophylaxis -cont subq heparin Code Status -Full Code Charges/Coding Visit Charges Inpatient E&M: 43136 Subs Hosp L2 Reason for Visit Reason for Visit: Diagnoses Sepsis, unspecified organism (05/24/22) Metabolic encephalopathy (05/24/22) Acute kidney failure, unspecified (05/24/22) Urinary tract infection, site not specified (05/24/22) Severe sepsis with septic shock (05/24/22)
[2022-05-26] MEDS: Lactated Ringers 1,000 ML 100 ML IV (16:17)
[2022-05-26 16:30] LABS: Bedside Glucose 120 mg/dL (74-106)
--- NOTE | 2022-05-26 17:37 | CT_ITS ---
STUDY: CT ABDOMEN AND PELVIS WITHOUT CONTRAST REASON FOR EXAM: Female, 77 years old. Hydronephrosis with urosepsis RADIATION DOSAGE (If Supplied By Facility): CTDIvol = ( 20.84 ) mGy, DLP = ( 1171.39 ) mGycm TECHNIQUE: Transaxial images were obtained from the dome of the diaphragm to the symphysis pubis without oral contrast, and without intravenous contrast. Sagittal and coronal images were reconstructed. Individualized dose optimization techniques were used for this CT. COMPARISON: None. FINDINGS: There is lower lung atelectasis. There are sternotomy wires. There are coronary artery calcifications. Normal liver. There are multiple gallstones. Normal spleen. Normal pancreas. Normal bilateral adrenal glands. There is moderate hydronephrosis of the right kidney. Normal left kidney. Normal visualized stomach. Normal small intestine. Normal colon. There is non-visualization of the appendix. There is atherosclerotic calcification of the abdominal aorta with elongation and tortuosity, but without a demonstrated aneurysm. Normal inferior vena cava. Normal retroperitoneum. There is No catheter in the urinary bladder. There is wall thickening of the bladder. There is atrophy of the uterus. There is no free fluid in the abdomen or pelvis. Normal abdominal wall. There is dextroscoliosis with degenerative change of the spine. CT/Abdomen/Pelvis without Cont IMPRESSION: Moderate right hydronephrosis. Wall thickening of the urinary bladder with No catheter in position. Multiple gallstones. No biliary dilatation. Electronically Signed: Sony Kulkarni MD at 18:20 EST ,
[2022-05-26 18:14] LABS: Platelet Count 260 K/mm3 (150-450); RET-HE 29.2 pg (30-35); Reticulocyte Count 1.91 % (0.5-1.5)
[2022-05-26 18:26] LABS: Ferritin 419 ng/mL (8-252); Iron 23 ug/dL (50-170); Iron Binding Capacity,Total 164 ug/dL (250-450)
[2022-05-26] MEDS: LORazepam 0.5 MG Tablet PO (20:44)
[2022-05-26 21:16] LABS: Bedside Glucose 129 mg/dL (74-106)
[2022-05-27] VITALS (9 sets, daily range): BP systolic 106–126; BP diastolic 54–84; PULSE 55–67; RESP 16–18; TEMP 36.6–37.7; O2SAT 93–97
[2022-05-27] MEDS: Lactated Ringers 1,000 ML 100 ML IV (02:23)
[2022-05-27] MEDS: 0.9% Saline Lock 10 ML Syringe IV (04:04)
[2022-05-27] MEDS: Menthol/Lanolin/Calamine/Znox 113 GM Tube 1 APPLIC TOPICAL ×3 (04:04→21:24)
[2022-05-27] MEDS: Levothyroxine 50 MCG Tablet PO (04:05)
[2022-05-27 04:12] LABS: Absolute Lymphocyte Count 0.88 X10^3/uL (0.83-4.51); Absolute Neutrophil Count 3.9 X10^3/uL (2.0-7.7); Basophil# 0.02 X10^3/uL; Basophil% 0.4 % (0-1); Eosinophil# 0.17 X10^3/uL; Hemoglobin 8.5 g/dL (12.0-15.0); Lymphocyte # 0.88 X10^3/ul (0.83-4.51); Lymphocyte % 15.7 % (19-41); Mean Corp Hgb Conc 31.5 g/dL (32-36); Mean Corpuscular Hgb 28.4 pg (27.0-32.0); Mean Corpuscular Volume 90.3 fL (81-99); Mean Platelet Vol. 10.1 fl (6.2-12.0); Monocyte# 0.57 X10^3/uL; Monocyte% 10.2 % (0-10); NRBC Flagged by Analyzer 0 % (0-5); Neutrophil # 3.85 X10^3/uL (2.7-7.7); Neutrophil % 68.7 % (47-70); Platelet Count 204 K/mm3 (150-450); RBC Distribution Width SD 49.7 fl (35.1-43.9); Red Blood Count 2.99 M/mm3 (4.2-5.4); White Blood Count 5.6 K/mm3 (4.4-11.0)
[2022-05-27 04:32] LABS: Anion Gap 7 (5-15); BUN 20 mg/dL (7-18); BUN/Creat Ratio 14.9 RATIO (10-20); Calcium,Total 8.2 mg/dL (8.5-10.1); Chloride 115 mmol/L (98-107); Creatinine, Serum 1.34 mg/dL (0.55-1.02); EST Glomerular Filtration Rate 41 mL/min (>60); Est Glom Filt Rate - Afr Amer 50 mL/min (>60); Estimated Creatinine Clearance 32.14 ml/min; Glucose 99 mg/dL (74-106); Potassium 4.7 mmol/L (3.5-5.1); Sodium Level 142 mmol/L (136-145)
--- NOTE | 2022-05-27 07:00 | PN.CC_ITS ---
Assessment & Plan Assessment/Plan (1) Sepsis: (2) Acute UTI: (3) Metabolic encephalopathy: PLAN: Plan RECOMMENDATIONS: 1. Continue antimicrobials as ordered. 2. Urology following with tentative plans for cystoscopy and stent placement today. 3. Encourage incentive spirometer use and mobilize patient as tolerated. 4. Will sign off from a critical care perspective. Please call with any additional questions. IMPRESSIONS: 1. Gram-negative sepsis complicated by hydroureteronephrosis The patient presented to the hospital with sepsis due to gram-negative cystitis with secondary hematogenous spread, along with acute sepsis related organ dysfunction as evidenced by lactic acidemia and acute kidney injury. The patient has been adequately volume resuscitated and remains hemodynamically stable. The patient was evaluated by urology with tentative plans for cystoscopy and right ureteral stent insertion today. The patient is currently growing pansensitive Klebsiella from cultures. Plan to continue current antimicrobials. 2. Acute kidney injury Improving. Likely prerenal in etiology in the setting of #1. Creatinine has improved with volume expansion. Continue to monitor urine output for now. No current indication for renal replacement therapy. 3. Anemia The patient presented with acute on chronic anemia. However, hemoglobin remains stable at the present time. Continue to monitor H&H and transfuse if hemoglobin drops below 7 g/dL. There are no overt signs of any gastrointestinal blood loss. 4. History of Parkinson's/type 2 diabetes/anxiety/hyperlipidemia/hypothyroidism Complicates care, management, recovery and prognosis. Continue home medication as indicated along with sliding scale insulin coverage. This note was generated with [employer] dictation software. It may contain incorrect words, spelling, and punctuation that were not noted in checking the note before signing. Subjective Subjective The patient was seen and examined at the bedside this morning. Events from the last 24 hours have been reviewed. The patient is currently afebrile, hemodynamically stable and maintaining appropriate oxygen saturations on room air. Creatinine has improved to 1.34. No overnight events were noted by the nursing staff. CT imaging of the abdomen yesterday demonstrated moderate right- sided hydronephrosis. The patient was seen this morning by urology with tentative plans for cystoscopy and right ureteral stent placement. The patient is currently documented to be overall net +6.2 L for the hospitalization. Objective Data Objective Data The patient's most recent lab work, culture data and imaging studies have all been personally reviewed. Blood culture dated May 24 was positive for gram- negative sanjuana. Urine culture dated May 24 was positive for gram-negative sanjuana, lactose tour narrator. Vital Signs: Vital Signs Temp Pulse Resp BP Pulse Ox O2 Del Method 99.9 F H 61 18 112/61 97 Room Air 05/27/22 03:00 05/27/22 03:00 05/27/22 03:00 05/27/22 03:00 05/27/22 03:00 05/27/22 03:00 Oxygen Delivery Method Room Air Weight: 146 lb 6.191 oz Body Mass Index (BMI) 23.0 Intake & Output: Intake and Output for Last 24 Hours 05/25/22 05/26/22 05/27/22 23:59 23:59 23:59 Intake Total 2758.33 / 2758.33 2947.33 / 2947.33 1000 / 1000 Output Total 1595 / 1595 1375 / 1375 Balance 1163.33 / 1163.33 1572.33 / 1572.33 1000 / 1000 Lab / Micro Data Attestation: I reviewed the patient's lab results. Result Diagrams: 05/27/22 04:00 05/27/22 04:00 Labs: Laboratory Results - last 24 hr 05/26/22 04:20: Retic Count 1.91 H, Immature Retic Fraction 20.80 H, Retic Hgb Equivalent 29.2 L 05/26/22 04:20: Iron 23 L, TIBC 164 L, Iron Saturation 14.0 L, Ferritin 419 H 05/26/22 07:46: POC Glucose 112 H 05/26/22 11:18: POC Glucose 194 H 05/26/22 16:08: POC Glucose 120 H 05/26/22 20:47: POC Glucose 129 H 05/27/22 04:00: WBC 5.6, RBC 2.99 L, Hgb 8.5 L, Hct 27.0 L, MCV 90.3, MCH 28.4, MCHC 31.5 L, RDW Std Deviation 49.7 H, RDW Coeff of Festus 15.0 H, Plt Count 204, MPV 10.1, Immature Gran % (Auto) 2.000 H, Neut % (Auto) 68.7, Lymph % (Auto) 15. 7 L, [place] % (Auto) 10.2 H, Eos % (Auto) 3.0, Baso % (Auto) 0.4, Absolute Neuts (auto) 3.9, Absolute Lymphs (auto) 0.88, Nucleated RBC % 0 05/27/22 04:00: Sodium 142, Potassium 4.7, Chloride 115 H, Carbon Dioxide 20.0 L , Anion Gap 7, BUN 20 H, Creatinine 1.34 H, Estim Creat Clear Calc 32.14, Est GFR (MDRD) Af Amer 50 L, Est GFR (MDRD) Non-Af 41 L, BUN/Creatinine Ratio 14.9, Glucose 99, Calcium 8.2 L Micro: Microbiology 05/24/22 18:30 Blood Culture (Wb) - Left Hand Blood Culture - Preliminary GNR lactose tour narrator 05/24/22 18:20 Urine Catheter - No Urine Culture - Final Klebsiella oxytoca 05/24/22 18:20 Nasal Secretion SARS-CoV-2 & FLU Antigen (Rapid) - Final Radiography Diagnostic Testing: Radiology Impression Renal Ultrasound 05/26/22 07:00 IMPRESSION: Mild to moderate degree of right-sided hydronephrosis. Electronically Signed: Maico Brothers MD at 13:10 EST , Abdomen/Pelvis CT 05/26/22 17:37 IMPRESSION: Moderate right hydronephrosis. Wall thickening of the urinary bladder with No catheter in position. Multiple gallstones. No biliary dilatation. Electronically Signed: Sony Kulkarni MD at 18:20 EST , Rhythm Strip Rhythm Strip: Sinus Tach Rate: 115 Ectopy: None Physical Exam Const alert and no apparent distress General Appearance: cooperative HEENT normocephalic and head/scalp atraumatic Eyes PERRL, EOMs intact bilaterally and conjunctivae normal Neck supple General: trachea midline Chest inspection of chest normal Resp normal respiratory effort Auscultation: Negative for rales, rhonchi or wheezes Cardio regular rate and regular rhythm GI soft to palpation GI Narrative: Mild, nonfocal, tenderness to palpation. Extremity no clubbing, cyanosis or edema Skin no rashes or lesions noted Neuro CN's II-XII intact bilaterally and no focal motor deficits Psych Mood & Affect: flat affect Charges/Coding Visit Charges Inpatient E&M: 93617 Subs Hosp L2
--- NOTE | 2022-05-27 07:58 | PCM.CONS.GEN ---
Assessment & Plan Assessment/Plan (1) Sepsis: PLAN: To surgery today for cystoscopy and right ureteral stent insertion. The procedure has been discussed and informed consent has been obtained. Questions have been answered. Supportive care including antibiotic administration per primary service (2) Hydroureteronephrosis: (3) YAMILEX (acute kidney injury): (4) Acute UTI: HPI Consult Data Date of Consult: 05/27/22 HPI Narrative Reason for Consultation: Hydronephrosis, urosepsis HPI Narrative: LOYDA GARCIA, is a 77 F who came to the hospital secondary to inability to ambulate. She was overall not feeling well at home. History of diabetes and Parkinson's disease. She denied any signs or symptoms of urinary tract infection at home including dysuria, hematuria, urinary incontinence. On evaluation she was found to have a right-sided hydronephrosis with positive urine and blood cultures. She continues to be febrile today and on CT evaluation the obstruction continues all the way to the distal right ureter without evidence of stone. She denies a history of stones in the past. She was a former smoker and quit approximately 10 years ago. Denies any history of hematuria. [facility] Medical History (Updated 05/27/22 @ 08:[address] Sanam Ramirez MD) Benign essential hypertension Generalized anxiety disorder GERD (gastroesophageal reflux disease) HLD (hyperlipidemia) Hydroureteronephrosis Parkinson's disease Type II diabetes mellitus Home Medications levothyroxine 50 mcg tablet 50 mcg PO DAILY 08/20/19 [History Last Taken Unknown] lorazepam 0.5 mg tablet 0.5 mg PO QHS 08/20/19 [History Last Taken Unknown] losartan 50 mg tablet 50 mg PO DAILY 08/20/19 [History Last Taken Unknown] metformin 1,000 mg tablet 1,000 mg PO BID 08/20/19 [History Last Taken Unknown] metoprolol tartrate 25 mg tablet 25 mg PO BID 08/20/19 [History Last Taken Unknown] simvastatin 20 mg tablet 20 mg PO QHS 08/20/19 [History Last Taken Unknown] aspirin 81 mg tablet 81 mg PO DAILY 05/24/22 [History Last Taken Unknown] carbidopa 25 mg-levodopa 100 mg tablet 1.5 tab PO TID 05/24/22 [History Last Taken Unknown] glipizide 2.5 mg tablet, extended release 24 hr 2.5 mg PO DAILY 05/24/22 [History Last Taken Unknown] memantine 10 mg tablet 10 mg PO DAILY 05/24/22 [History Last Taken Unknown] risperidone 0.5 mg tablet 0.5 mg PO DAILY 05/24/22 [History Last Taken Unknown] solifenacin 5 mg tablet 5 mg PO DAILY 05/24/22 [History Last Taken Unknown] Allergy/AdvReac Type Severity Reaction Status Date / Time No Known Allergies Allergy Verified 08/20/19 11:02 Family History Mother Heart disease Hypertension Father No problems noted. Surgical History Hx of CABG Social History household members: spouse housing: house Smoking Status: Never smoker alcohol intake: never substance use type: does not use ROS Constitutional Constitutional: Reports systems reviewed and no addt'l complaints, except as documented Eyes Eyes: Reports systems reviewed and no addt'l complaints, except as documented ENT HEENT: Reports systems reviewed and no addt'l complaints, except as documented Cardiovascular Cardiovascular: Reports fatigue; Denies abdominal pain, chest pain, nausea or vomiting Respiratory/Chest Respiratory/Chest: Reports systems reviewed and no addt'l complaints, except as documented Gastrointestinal Gastrointestinal: Denies abdominal pain, nausea or vomiting Genitourinary Genitourinary: Reports nocturia; Denies burning urination, flank pain, hematuria, urinary hesitancy, urinary incontinence or urinary urgency Integumentary Integumentary: Reports systems reviewed and no addt'l complaints, except as documented Neurologic Neurologic: Reports systems reviewed and no addt'l complaints, except as documented Psychiatric Psychiatric: Reports systems reviewed and no addt'l complaints, except as documented Endocrine Endocrinology: Reports systems reviewed and no addt'l complaints, except as documented Hematologic/Lymphatic Hematologic/Lymphatic: Reports systems reviewed and no addt'l complaints, except as documented Allergic/Immunologic Allergic/Immunologic: Reports systems reviewed and no addt'l complaints, except as documented Physical Exam Const alert, oriented x3 and no apparent distress General Appearance: cooperative and comfortable HEENT normocephalic, head/scalp atraumatic, hearing grossly normal bilaterally, external ears normal and external nose normal Eyes General Eye: normal appearance of both eyes Neck supple General: trachea midline Chest inspection of chest normal Resp normal respiratory effort, normal air movement and no retractions Effort and Inspection: able to speak in complete sentences and symmetric chest movement Cardio regular rate GI soft to palpation and non-tender no CVA tenderness Narrative: No is draining clear yellow urine Neuro oriented x3 and CN's II-XII intact bilaterally Psych mental status grossly normal Lab / Micro Data Result Diagrams: 05/27/22 04:00 05/27/22 04:00 Labs: Laboratory Results - last 24 hr 05/26/22 04:20: Retic Count 1.91 H, Immature Retic Fraction 20.80 H, Retic Hgb Equivalent 29.2 L 05/26/22 04:20: Iron 23 L, TIBC 164 L, Iron Saturation 14.0 L, Ferritin 419 H 05/26/22 07:46: POC Glucose 112 H 05/26/22 11:18: POC Glucose 194 H 05/26/22 16:08: POC Glucose 120 H 05/26/22 20:47: POC Glucose 129 H 05/27/22 04:00: WBC 5.6, RBC 2.99 L, Hgb 8.5 L, Hct 27.0 L, MCV 90.3, MCH 28.4, MCHC 31.5 L, RDW Std Deviation 49.7 H, RDW Coeff of Festus 15.0 H, Plt Count 204, MPV 10.1, Immature Gran % (Auto) 2.000 H, Neut % (Auto) 68.7, Lymph % (Auto) 15.7 L, [place] % (Auto) 10.2 H, Eos % (Auto) 3.0, Baso % (Auto) 0.4, Absolute Neuts (auto) 3.9, Absolute Lymphs (auto) 0.88, Nucleated RBC % 0 05/27/22 04:00: Sodium 142, Potassium 4.7, Chloride 115 H, Carbon Dioxide 20.0 L, Anion Gap 7, BUN 20 H, Creatinine 1.34 H, Estim Creat Clear Calc 32.14, Est GFR (MDRD) Af Amer 50 L, Est GFR (MDRD) Non-Af 41 L, BUN/Creatinine Ratio 14.9, Glucose 99, Calcium 8.2 L Micro: Microbiology 05/24/22 18:05 Blood Culture (Wb) - Venous Blood Culture - Preliminary No growth in 48 hours. 05/24/22 18:30 Blood Culture (Wb) - Left Hand Blood Culture - Preliminary Klebsiella oxytoca 05/24/22 18:20 Urine Catheter - No Urine Culture - Final Klebsiella oxytoca Rhythm Strip Rhythm Strip: Sinus Tach Rate: 115 Ectopy: None Radiology Impression Renal Ultrasound 05/26/22 07:00 IMPRESSION: Mild to moderate degree of right-sided hydronephrosis. Electronically Signed: Maico Brothers MD at 13:10 EST , Abdomen/Pelvis CT 05/26/22 17:37 IMPRESSION: Moderate right hydronephrosis. Wall thickening of the urinary bladder with No catheter in position. Multiple gallstones. No biliary dilatation. Electronically Signed: Sony Kulkarni MD at 18:20 EST ,
[2022-05-27 09:05] LABS: Bedside Glucose 98 mg/dL (74-106)
--- NOTE | 2022-05-27 09:52 | WOUNDNOTE ---
wound photo: bilateral buttocks
--- NOTE | 2022-05-27 11:22 | EKG12_ITS ---
Test Reason : PRE OP Blood Pressure : / mmHG Vent. Rate : 072 BPM Atrial Rate : 072 BPM P-R Int : 152 ms QRS Dur : 066 ms QT Int : 424 ms P-R-T Axes : 026 -07 033 degrees QTc Int : 464 ms Normal sinus rhythm Low voltage QRS Nonspecific ST and T wave abnormality Abnormal ECG When compared with ECG of 24-MAY-2022 18:46, Vent. rate has decreased BY 40 BPM Nonspecific T wave abnormality, improved in Inferior leads Nonspecific T wave abnormality has replaced inverted T waves in Anterior leads Confirmed by WISAM LEIGH, COLIN ([id number]), editor newspaper SUPRIYA ORDONEZ ([id number]) on 06/02/2022 12:50:51 PM Referred By: LULU Confirmed By:COLIN JOEL MD
--- NOTE | 2022-05-27 11:44 | CASEMGMT ---
Social Work Pt's called SW this morning. He reviewed SNF list SW left w/pt. We discussed pt going home vs going somewhere for rehab. Pt's explains that pt needs to be able to get up to the bathroom on her own. SW explained pt did tell this SW that she is needing more help at present, does seem aware of this. SW explained we can start a referral, and then will see how it goes later with PT and OT. SW explained if pt doesn't need to go to a snf facility we can cancel the referral. Pt's thought this was a good idea and agreeable to have SW start referral w[facility]. SW sent referral to [facility] via [facility]. Once pt has PT/OT, SW will review and will forward to [facility], as it is anticipated that SNF will be the appropriate level of care. SW will continue to follow. BO Jorge
[2022-05-27 11:48] LABS: Troponin-I HS 10 pg/mL (3.0-54.0)
--- NOTE | 2022-05-27 12:14 | OP.PCM_ITS ---
Report of Operation Date of Procedure: 05/27/22 Pre-Operative Diagnosis: Urosepsis, right hydroureteronephrosis Post-Operative Diagnosis: Same Surgery/Procedure Performed:: Cystoscopy, right ureteral stent insertion Surgeon: Sanam Ramirez Type of Anesthesia: MAC Description of Procedure: The patient is a 77-year-old female admitted to the ICU with urosepsis and found to have a right-sided hydroureteronephrosis. She now presents for intervention with cystoscopy and right ureteral stent insertion. Informed consent has been obtained. The patient was taken to the operating room and placed on the operating room table. Anesthesia monitored the head, neck, airway, IV access and vital signs throughout the case. Once anesthesia was appropriately administered, the patient was placed into dorsal lithotomy position and was prepped and draped in usual sterile fashion. The cystoscope was inserted through the urethra under direct visualization into the urinary bladder. There was a significant amount of debris within the urinary lumen. There is no obvious bladder mass present. The right ureteral orifice was significantly edematous. It was gently intubated with a 0.035 Glidewire with the help of a pusher. A 6 Setswana 24 cm JJ stent was inserted over the Glidewire with good curling in the renal pelvis as well as the urinary bladder. A fresh urine culture was sent. The cystoscope was then removed and a No catheter was placed with 10 cc in the balloon. The patient was then awakened and taken to the recovery room in good condition. There were no complications during this procedure. Grafts/Implants Used: 6 x 24 JJ stent Complications None Admit VTE Documentation VTE Present on Admission: Yes VTE Pharm Prophylaxis ordered?: Yes
--- NOTE | 2022-05-27 13:51 | PCM.PN.HOSP ---
Reason for Visit Reason for Visit: Diagnoses Sepsis, unspecified organism (05/24/22) Metabolic encephalopathy (05/24/22) Unspecified hydronephrosis (05/24/22) Acute kidney failure, unspecified (05/24/22) Urinary tract infection, site not specified (05/24/22) Severe sepsis with septic shock (05/24/22) Subjective Subjective Patient overall is feeling much better. Awaiting her urological procedure as she was noted to have some hydronephrosis on imaging yesterday. Is currently NPO. I suspect she may need some inpatient rehab prior to discharge home however we are awaiting PT and OT consultation. Objective Data Objective Data Vital Signs: Vital Signs Temp Pulse Resp BP Pulse Ox O2 Del Method 98.5 F 59 L 16 126/84 H 95 Room Air 05/27/22 13:00 05/27/22 13:00 05/27/22 13:00 05/27/22 12:55 05/27/22 13:00 05/27/22 13:00 Oxygen Delivery Method Room Air Weight: 66.4 kg Body Mass Index (BMI) 23.0 Intake & Output: Intake and Output for Last 24 Hours 05/25/22 05/26/22 05/27/22 23:59 23:59 23:59 Intake Total 2758.33 / 2758.33 2947.33 / 2947.33 1651.67 / 1651.67 Output Total 1595 / 1595 1375 / 1375 Balance 1163.33 / 1163.33 1572.33 / 1572.33 1651.67 / 1651.67 Lab / Micro Data Result Diagrams: 05/27/22 04:00 05/27/22 04:00 Labs: Laboratory Results - last 24 hr 05/26/22 04:20: Retic Count 1.91 H, Immature Retic Fraction 20.80 H, Retic Hgb Equivalent 29.2 L 05/26/22 04:20: Iron 23 L, TIBC 164 L, Iron Saturation 14.0 L, Ferritin 419 H 05/26/22 16:08: POC Glucose 120 H 05/26/22 20:47: POC Glucose 129 H 05/27/22 04:00: WBC 5.6, RBC 2.99 L, Hgb 8.5 L, Hct 27.0 L, MCV 90.3, MCH 28.4, MCHC 31.5 L, RDW Std Deviation 49.7 H, RDW Coeff of Festus 15.0 H, Plt Count 204, MPV 10.1, Immature Gran % (Auto) 2.000 H, Neut % (Auto) 68.7, Lymph % (Auto) 15.7 L, [place] % (Auto) 10.2 H, Eos % (Auto) 3.0, Baso % (Auto) 0.4, Absolute Neuts (auto) 3.9, Absolute Lymphs (auto) 0.88, Nucleated RBC % 0 05/27/22 04:00: Sodium 142, Potassium 4.7, Chloride 115 H, Carbon Dioxide 20.0 L, Anion Gap 7, BUN 20 H, Creatinine 1.34 H, Estim Creat Clear Calc 32.14, Est GFR (MDRD) Af Amer 50 L, Est GFR (MDRD) Non-Af 41 L, BUN/Creatinine Ratio 14.9, Glucose 99, Calcium 8.2 L 05/27/22 04:00: Troponin I High Sens 10 05/27/22 08:47: POC Glucose 98 Micro: Microbiology 05/24/22 18:05 Blood Culture (Wb) - Venous Blood Culture - Preliminary No growth in 48 hours. 05/24/22 18:30 Blood Culture (Wb) - Left Hand Blood Culture - Preliminary Klebsiella oxytoca 05/24/22 18:20 Urine Catheter - No Urine Culture - Final Klebsiella oxytoca 05/24/22 18:20 Nasal Secretion SARS-CoV-2 & FLU Antigen (Rapid) - Final Radiography Diagnostic Testing: Radiology Impression Abdomen/Pelvis CT 05/26/22 17:37 IMPRESSION: Moderate right hydronephrosis. Wall thickening of the urinary bladder with No catheter in position. Multiple gallstones. No biliary dilatation. Electronically Signed: Sony Kulkarni MD at 18:20 EST , Rhythm Strip Rhythm Strip: Sinus Tach Rate: 115 Ectopy: None Physical Exam Const alert, oriented x3, no apparent distress and average body habitus Constitutional Narrative: Elderly white female, lying in bed awaiting procedure, appears nontoxic HEENT head/scalp atraumatic and moist oral mucous membranes HEENT Narrative: Dentition is poor, Mallampati is 2 Head and Scalp: normocephalic Resp normal respiratory effort, no retractions, no use of accessory muscles and clear to auscultation bilaterally Auscultation: Negative for crackles, rhonchi or wheezes Cardio regular rate, regular rhythm, S1 normal heart sound, S2 normal heart sound, no murmurs, no rub, no gallops and no clicks GI normal to inspection, nondistended, normoactive bowel sounds, soft to palpation and non-tender Extremity no clubbing, cyanosis or edema Extremity Narrative: 2+ pedal pulses Neuro oriented x3, moves all extremities and no focal motor deficits Speech: speech normal Psych affect normal Psych Narrative: Patient appears as if she is feeling much better, pleasant, appropriately interactive Assessment & Plan Assessment/Plan (1) Sepsis: (2) Metabolic encephalopathy: (3) YAMILEX (acute kidney injury): PLAN: Plan Sepsis secondary to Klebsiella oxytoca bacteremia/UTI -Presented with hypotension, lactic acidosis, leukocytosis, tachycardia, tachypnea, fever, YAMILEX, mental status changes -Urine and blood cultures are both positive for Klebsiella oxytoca -We will need 10 days of antibiotics--> day 3 of 10 -No pressors required during her hospital course Right hydronephrosis -Status post stenting by urology -Plan is for outpatient ureteroscopy in the next few weeks -No significant stricture or stone noted however it suspected that the narrowing was related to inflammation and infection YAMILEX -Resolving and almost normalized -Baseline serum creatinine appears to be between 1 and 1.2 -Serum creatinine on presentation was 3.16 -Current serum creatinine is 1.34 -Continue to hold home losartan -Discontinue IV fluids -Continue to avoid nephrotoxins as able -Repeat BMP in a.m. Anemia -Patient did appear to be hemoconcentrated on presentation -We will check stool for guaiac--> still pending -Suspect some of her drop is dilutional -Reticulocyte count is slightly elevated 1.9 -Ferritin is elevated at 419 however this is an acute phase reactant may be elevated related to that -Total iron is 23 with a 14% iron saturation however TIBC is low not high indicating likely related to anemia of chronic disease -Hemoglobin has stabilized in the mid 9 range -Repeat CBC in a.m. DM-2 -Hold home oral agents -cont SSI -Accuchecks HPL -hold statin HTN -Hypotension has resolved -Continue to hold home metoprolol -Continue to hold losartan -May be able to begin reinitiation of home antihypertensives tomorrow CAD -see above -continue ASA Parkinson's Disease -cont carbadopa/levodopa Overactive bladder -solifenacin Hypothyroidism -cont thyroid replacement Dementia -continue memantine DVT prophylaxis -cont subq heparin Code Status -Full Code I did update her with regards to the plan of care and possible discharge planning and told him I expected medically stable for discharge in the next 24 to 48 hours Charges/Coding Visit Charges Inpatient E&M: 19352 Subs Hosp L2
[2022-05-27] MEDS: Aspirin 81 MG TAB.CHEW PO (14:40)
[2022-05-27] MEDS: Heparin Injection (Vial) 5,000 UNIT/ML VIAL 5000 UNIT SC ×2 (14:41→21:26)
[2022-05-27] MEDS: RisperiDONE 0.5 MG Tablet PO (14:42)
[2022-05-27] MEDS: Carbidopa/Levodopa 25/100 Tablet PO (14:46)
[2022-05-27 14:55] LABS: Bedside Glucose 103 mg/dL (74-106)
[2022-05-27] MEDS: Glucerna Shake 120 ML LIQUID PO (17:13)
--- NOTE | 2022-05-27 20:13 | NURSING ---
Per ICU nurse report. New josue was placed today after stent was placed.
[2022-05-27] MEDS: LORazepam 0.5 MG Tablet PO (21:24)
[2022-05-27] MEDS: Insulin Lispro 100 UNIT/ML INSULN.PEN SC (21:27)
[2022-05-27 21:35] LABS: Bedside Glucose 179 mg/dL (74-106)
--- NOTE | 2022-05-27 22:42 | CASEMGMT ---
SW Note SW sent PT/OT evaluations via [facility] to [facility] for referral. Adilene Jolly MANAGER [employer], YING
[2022-05-28] VITALS (7 sets, daily range): BP systolic 104–122; BP diastolic 55–83; PULSE 64–97; RESP 16–20; TEMP 36.7–37.5; O2SAT 93–98
--- NOTE | 2022-05-28 01:15 | NURSING ---
This rn assuming care of pt at this time.
[2022-05-28] MEDS: Levothyroxine 50 MCG Tablet PO (05:33)
[2022-05-28] MEDS: Carbidopa/Levodopa 25/100 Tablet PO ×3 (05:33→15:58)
[2022-05-28] MEDS: Menthol/Lanolin/Calamine/Znox 113 GM Tube 1 APPLIC TOPICAL ×3 (05:34→22:23)
[2022-05-28 06:52] LABS: Absolute Lymphocyte Count 1.09 X10^3/uL (0.83-4.51); Absolute Neutrophil Count 2.9 X10^3/uL (2.0-7.7); Basophil# 0.02 X10^3/uL; Basophil% 0.4 % (0-1); Eosinophil# 0.19 X10^3/uL; Eosinophils% 3.9 % (0-5); Hematocrit 27.5 % (37-47); Hemoglobin 8.5 g/dL (12.0-15.0); Lymphocyte # 1.09 X10^3/ul (0.83-4.51); Lymphocyte % 22.3 % (19-41); Mean Corp Hgb Conc 30.9 g/dL (32-36); Mean Corpuscular Hgb 28.1 pg (27.0-32.0); Mean Corpuscular Volume 91.1 fL (81-99); Mean Platelet Vol. 10.3 fl (6.2-12.0); Monocyte# 0.61 X10^3/uL; Monocyte% 12.5 % (0-10); NRBC Flagged by Analyzer 0 % (0-5); Neutrophil # 2.91 X10^3/uL (2.7-7.7); Neutrophil % 59.5 % (47-70); Platelet Count 209 K/mm3 (150-450); RBC Distribution Width CV 14.8 % (11.6-14.6); RBC Distribution Width SD 49.5 fl (35.1-43.9); Red Blood Count 3.02 M/mm3 (4.2-5.4); White Blood Count 4.9 K/mm3 (4.4-11.0)
[2022-05-28 07:01] LABS: Bedside Glucose 133 mg/dL (74-106)
[2022-05-28 07:17] LABS: Anion Gap 7 (5-15); BUN 17 mg/dL (7-18); BUN/Creat Ratio 13.1 RATIO (10-20); Calcium,Total 8.1 mg/dL (8.5-10.1); Chloride 113 mmol/L (98-107); EST Glomerular Filtration Rate 42 mL/min (>60); Est Glom Filt Rate - Afr Amer 51 mL/min (>60); Estimated Creatinine Clearance 33.13 ml/min; Glucose 150 mg/dL (74-106); Potassium 4.3 mmol/L (3.5-5.1); Sodium Level 142 mmol/L (136-145)
[2022-05-28] MEDS: Aspirin 81 MG TAB.CHEW PO (08:36)
[2022-05-28] MEDS: Heparin Injection (Vial) 5,000 UNIT/ML VIAL 5000 UNIT SC ×2 (08:36→22:23)
[2022-05-28] MEDS: RisperiDONE 0.5 MG Tablet PO (08:36)
[2022-05-28] MEDS: Insulin Lispro 100 UNIT/ML INSULN.PEN SC ×3 (11:02→22:22)
[2022-05-28 11:30] LABS: Bedside Glucose 239 mg/dL (74-106)
[2022-05-28 11:50] LABS: Bedside Glucose 238 mg/dL (74-106)
--- NOTE | 2022-05-28 14:09 | CASEMGMT ---
VENESSA checked in with Kim at [facility] via [facility] asking if they will have a bed for patient and if so can a pre-cert be started. Await response. Kayley Estrada ORNAMENTAL METAL WORKER APPRENTICE YING
--- NOTE | 2022-05-28 15:49 | CASEMGMT ---
VENESSA spoke with patient and her . VENESSA asked if they feel patient is okay going home or if they would like patient to go somewhere for rehab. Patient's , Jeet said he wants to talk with the doctor. Jeet said that patient was supposed to go to a Dr in [place] to see if she needs a catheter all the time. Jeet said that is the only problem is patient is incontinent and her being able to get to the bathroom. VENESSA let them know SW has a referral out to [facility]. VENESSA spoke with Kim at [facility] and she thinks she will have a bed for patient tomorrow. She will let SW know for sure tomorrow. Kayley HE
--- NOTE | 2022-05-28 16:39 | PCM.PN.HOSP ---
Reason for Visit Reason for Visit: Diagnoses Sepsis, unspecified organism (05/24/22) Metabolic encephalopathy (05/24/22) Unspecified hydronephrosis (05/24/22) Acute kidney failure, unspecified (05/24/22) Urinary tract infection, site not specified (05/24/22) Severe sepsis with septic shock (05/24/22) Subjective Subjective No issues overnight. Patient was seen by therapy yesterday and they recommended ongoing therapy but thought she may be able to go home. Unfortunately today she still has some significant instability and will require placement at discharge. Pre-CERT has been started at the [facility]. Anticipate discharge there once pre-CERT is obtained. Objective Data Objective Data Vital Signs: Vital Signs Temp Pulse Resp BP Pulse Ox O2 Del Method 98.3 F 88 16 108/55 L 95 Room Air 05/28/22 15:56 05/28/22 15:56 05/28/22 15:56 05/28/22 15:56 05/28/22 15:56 05/28/22 15:56 Oxygen Delivery Method Room Air Weight: 66.9 kg Body Mass Index (BMI) 23.0 Intake & Output: Intake and Output for Last 24 Hours 05/26/22 05/27/22 05/28/22 23:59 23:59 23:59 Intake Total 2947.33 / 2947.33 1701.67 / 1701.67 700 / 700 Output Total 1375 / 1375 1100 / 1100 Balance 1572.33 / 1572.33 1701.67 / 1701.67 -400 / -400 Lab / Micro Data Result Diagrams: 05/28/22 06:22 05/28/22 06:22 Labs: Laboratory Results - last 24 hr 05/27/22 21:15: POC Glucose 179 H 05/28/22 06:22: WBC 4.9, RBC 3.02 L, Hgb 8.5 L, Hct 27.5 L, MCV 91.1, MCH 28.1, MCHC 30.9 L, RDW Std Deviation 49.5 H, RDW Coeff of Festus 14.8 H, Plt Count 209, MPV 10.3, Immature Gran % (Auto) 1.400 H, Neut % (Auto) 59.5, Lymph % (Auto) 22.3, Carbon % (Auto) 12.5 H, Eos % (Auto) 3.9, Baso % (Auto) 0.4, Absolute Neuts (auto) 2.9, Absolute Lymphs (auto) 1.09, Nucleated RBC % 0 05/28/22 06:22: Sodium 142, Potassium 4.3, Chloride 113 H, Carbon Dioxide 22.0, Anion Gap 7, BUN 17, Creatinine 1.30 H, Estim Creat Clear Calc 33.13, Est GFR (MDRD) Af Amer 51 L, Est GFR (MDRD) Non-Af 42 L, BUN/Creatinine Ratio 13.1, Glucose 150 H, Calcium 8.1 L 05/28/22 06:36: POC Glucose 133 H 05/28/22 11:01: POC Glucose 239 H 05/28/22 11:16: POC Glucose 238 H Micro: Microbiology 05/27/22 13:04 Urine, Catheterized Urine Culture - Preliminary Culture exhibits no growth. 05/24/22 18:05 Blood Culture (Wb) - Venous Blood Culture - Preliminary No growth in 48 hours. 05/24/22 18:30 Blood Culture (Wb) - Left Hand Blood Culture - Preliminary Klebsiella oxytoca 05/24/22 18:20 Urine Catheter - No Urine Culture - Final Klebsiella oxytoca 05/24/22 18:20 Nasal Secretion SARS-CoV-2 & FLU Antigen (Rapid) - Final Rhythm Strip Rhythm Strip: Sinus Tach Rate: 115 Ectopy: None Physical Exam Const alert, oriented x3, no apparent distress and average body habitus Constitutional Narrative: Elderly white female, sitting up in bed, nursing at bedside, appears comfortable, nontoxic HEENT head/scalp atraumatic and moist oral mucous membranes HEENT Narrative: Dentition is poor, Mallampati is 2, no thrush Resp normal respiratory effort, no retractions, no use of accessory muscles and clear to auscultation bilaterally Auscultation: Negative for crackles, rhonchi or wheezes Cardio regular rate, regular rhythm, S1 normal heart sound, S2 normal heart sound, no murmurs, no rub, no gallops and no clicks GI normal to inspection, nondistended, normoactive bowel sounds, soft to palpation and non-tender Extremity no clubbing, cyanosis or edema Extremity Narrative: 2+ pedal pulses Neuro oriented x3, moves all extremities and no focal motor deficits Neuro Narrative: Slight tremor noted on exam seems to be intention and related to her Parkinson's Speech: speech normal Psych affect normal Psych Narrative: Very pleasant Assessment & Plan Assessment/Plan (1) Sepsis: (2) Metabolic encephalopathy: (3) YAMILEX (acute kidney injury): PLAN: Plan Sepsis secondary to Klebsiella oxytoca bacteremia/UTI -Presented with hypotension, lactic acidosis, leukocytosis, tachycardia, tachypnea, fever, YAMILEX, mental status changes -Urine and blood cultures are both positive for Klebsiella oxytoca -We will need 10 days of antibiotics--> day 4 of 10 -No pressors required during her hospital course -We will try to discontinue No today however if patient has postvoid residual of greater than 150 cc will need to replace No Right hydronephrosis -Status post stenting by urology -Plan is for outpatient ureteroscopy in the next few weeks -No significant stricture or stone noted however it suspected that the narrowing was related to inflammation and infection -No removal as above YAMILEX -Resolving and almost normalized -Baseline serum creatinine appears to be between 1 and 1.2 -Serum creatinine on presentation was 3.16 -Current serum creatinine is 1.30 -Continue to hold home losartan--> blood pressure is still within the normal range without any antihypertensives -Continue to avoid nephrotoxins as able -Repeat BMP in a.m. Anemia -Patient did appear to be hemoconcentrated on presentation -We will check stool for guaiac--> still pending -Suspect some of her drop is dilutional -Reticulocyte count is slightly elevated 1.9 -Ferritin is elevated at 419 however this is an acute phase reactant may be elevated related to that -Total iron is 23 with a 14% iron saturation however TIBC is low not high indicating likely related to anemia of chronic disease -Hemoglobin is stable -Repeat CBC in a.m. DM-2 -Hold home oral agents -cont SSI -Accuchecks HPL -hold statin HTN -Hypotension has resolved however blood pressure is not elevated despite not utilizing any antihypertensives -Continue to hold home metoprolol -Continue to hold losartan -May be able to begin reinitiation of home antihypertensives tomorrow CAD -see above -continue ASA Parkinson's Disease -cont carbadopa/levodopa Overactive bladder -solifenacin Hypothyroidism -cont thyroid replacement Dementia -continue memantine DVT prophylaxis -cont subq heparin Code Status -Full Code Plan is for discharge to the [facility] once pre-CERT is obtained Charges/Coding Visit Charges Inpatient E&M: 11322 Subs Hosp L2
[2022-05-28 16:40] LABS: Bedside Glucose 164 mg/dL (74-106)
--- NOTE | 2022-05-28 18:02 | PCM.PN.GU ---
Subjective Subjective Silva is awake and talkative this evening. She just had a bowel movement and just finished getting cleaned up. The No catheter was removed about 30 minutes ago. From what it sounds like, she normally voids into a diaper rather than sitting on the toilet. She is aware that she needs to follow-up with me for ureteroscopy in the next couple of weeks and that my office will be in contact with her. She denies any pain at this time and reports that her urine has been clear. Objective Data Objective Data Vital Signs: Vital Signs Temp Pulse Resp BP Pulse Ox O2 Del Method 98.3 F 88 16 108/55 L 95 Room Air 05/28/22 15:56 05/28/22 15:56 05/28/22 15:56 05/28/22 15:56 05/28/22 15:56 05/28/22 15:56 Oxygen Delivery Method Room Air Weight: 66.9 kg Body Mass Index (BMI) 23.0 Intake & Output: Intake and Output for Last 24 Hours 05/26/22 05/27/22 05/28/22 23:59 23:59 23:59 Intake Total 2947.33 / 2947.33 1701.67 / 1701.67 700 / 700 Output Total 1375 / 1375 1100 / 1100 Balance 1572.33 / 1572.33 1701.67 / 1701.67 -400 / -400 Lab / Micro Data Result Diagrams: 05/28/22 06:22 05/28/22 06:22 Labs: Laboratory Results - last 24 hr 05/27/22 21:15: POC Glucose 179 H 05/28/22 06:22: WBC 4.9, RBC 3.02 L, Hgb 8.5 L, Hct 27.5 L, MCV 91.1, MCH 28.1, MCHC 30.9 L, RDW Std Deviation 49.5 H, RDW Coeff of Festus 14.8 H, Plt Count 209, MPV 10.3, Immature Gran % (Auto) 1.400 H, Neut % (Auto) 59.5, Lymph % (Auto) 22.3, [place] % (Auto) 12.5 H, Eos % (Auto) 3.9, Baso % (Auto) 0.4, Absolute Neuts (auto) 2.9, Absolute Lymphs (auto) 1.09, Nucleated RBC % 0 05/28/22 06:22: Sodium 142, Potassium 4.3, Chloride 113 H, Carbon Dioxide 22.0, Anion Gap 7, BUN 17, Creatinine 1.30 H, Estim Creat Clear Calc 33.13, Est GFR (MDRD) Af Amer 51 L, Est GFR (MDRD) Non-Af 42 L, BUN/Creatinine Ratio 13.1, Glucose 150 H, Calcium 8.1 L 05/28/22 06:36: POC Glucose 133 H 05/28/22 11:01: POC Glucose 239 H 05/28/22 11:16: POC Glucose 238 H 05/28/22 15:54: POC Glucose 164 H Micro: Microbiology 05/27/22 13:04 Urine, Catheterized Urine Culture - Preliminary Culture exhibits no growth. 05/24/22 18:05 Blood Culture (Wb) - Venous Blood Culture - Preliminary No growth in 48 hours. 05/24/22 18:30 Blood Culture (Wb) - Left Hand Blood Culture - Preliminary Klebsiella oxytoca 05/24/22 18:20 Urine Catheter - No Urine Culture - Final Klebsiella oxytoca 05/24/22 18:20 Nasal Secretion SARS-CoV-2 & FLU Antigen (Rapid) - Final Rhythm Strip Rhythm Strip: Sinus Tach Rate: 115 Ectopy: None Physical Exam Const alert, oriented x3 and no apparent distress HEENT normocephalic, head/scalp atraumatic, external ears normal, external nose normal and moist oral mucous membranes Eyes General Eye: normal appearance of both eyes Neck supple General: normal visual inspection Lymph Lymphatic: no lymphedema noted Chest inspection of chest normal Resp normal respiratory effort, normal air movement and no retractions Cardio regular rate GI soft to palpation and non-tender Narrative: No catheter has been removed Skin no rashes or lesions noted Neuro oriented x3, CN's II-XII intact bilaterally and moves all extremities Psych mental status grossly normal Assessment & Plan Assessment/Plan (1) Hydroureteronephrosis: PLAN: Trial of void to be completed today. Nursing staff is aware that if the postvoid residual is greater than 150 cc, the catheter will be replaced to straight drain. Continue supportive care per primary service. I will reach out to the patient for scheduling of the ureteroscopy. Please call with any issues or concerns. Thank you. (2) Acute UTI: (3) Sepsis: (4) YAMILEX (acute kidney injury):
--- NOTE | 2022-05-28 19:54 | NURSING ---
Pt voided in toilet but missed hat. Post void residual was 30ml.
[2022-05-28] MEDS: LORazepam 0.5 MG Tablet PO (22:22)
[2022-05-28] MEDS: 0.9% Saline Lock 10 ML Syringe IV (22:23)
[2022-05-28 23:10] LABS: Bedside Glucose 174 mg/dL (74-106)
--- NOTE | 2022-05-29 01:00 | NURSING ---
Pt was incontinent. Post void residual was 100 after incontinence. Pt states shes having trouble telling when she has to urinate.
[2022-05-29 03:45] VITALS: BP 117/64; PULSE 67; RESP 16; TEMP 36.6; O2SAT 95
[2022-05-29] MEDS: Carbidopa/Levodopa 25/100 Tablet PO ×3 (06:47→17:00)
[2022-05-29] MEDS: Levothyroxine 50 MCG Tablet PO (06:47)
[2022-05-29] MEDS: Menthol/Lanolin/Calamine/Znox 113 GM Tube 1 APPLIC TOPICAL ×3 (06:47→22:26)
[2022-05-29] MEDS: Insulin Lispro 100 UNIT/ML INSULN.PEN SC ×3 (06:47→22:14)
[2022-05-29 07:07] LABS: Anion Gap 6 (5-15); BUN 15 mg/dL (7-18); BUN/Creat Ratio 10.1 RATIO (10-20); Calcium,Total 8.4 mg/dL (8.5-10.1); Chloride 112 mmol/L (98-107); Creatinine, Serum 1.49 mg/dL (0.55-1.02); EST Glomerular Filtration Rate 36 mL/min (>60); Est Glom Filt Rate - Afr Amer 44 mL/min (>60); Glucose 149 mg/dL (74-106); Magnesium 1.6 mg/dL (1.6-2.6); Phosphorus 3.4 mg/dL (2.5-4.9); Potassium 4.6 mmol/L (3.5-5.1); Sodium Level 142 mmol/L (136-145)
[2022-05-29 07:10] LABS: Bedside Glucose 152 mg/dL (74-106)
[2022-05-29 08:42] VITALS: BP 122/75; PULSE 69; RESP 16; TEMP 37.7; O2SAT 94
[2022-05-29] MEDS: Aspirin 81 MG TAB.CHEW PO (08:45)
[2022-05-29] MEDS: Heparin Injection (Vial) 5,000 UNIT/ML VIAL 5000 UNIT SC ×2 (09:58→22:14)
[2022-05-29] MEDS: 0.9% Saline Lock 10 ML Syringe IV ×2 (09:58→22:13)
[2022-05-29] MEDS: RisperiDONE 0.5 MG Tablet PO (09:58)
[2022-05-29 10:51] LABS: Bedside Glucose 192 mg/dL (74-106)
--- NOTE | 2022-05-29 11:30 | CASEMGMT ---
VENESSA received a call from patient's Jeet. Jeet said patient was very down and depressed yesterday when they were talking about patient going to a halfway. VENESSA went over therapy notes with Jeet. Patient's bathroom is about 20-30 feet away from where she normally sleeps and sits. VENESSA let Jeet know that staff is walking with her while she walks with a walker. VENESSA also told him that she needed a little assistance getting up from the toilet. Jeet asked about a catheter. VENESSA let him know SW spoke with physician about this and patient will not be discharged with a catheter as it is not necessary and it causes increased risk of infection. VENESSA told Jeet that if VENESSA is able to get home health set up the physician would likely discharge patient today. VENESSA told him SW will let him know. VENESSA asked if he would like a list of agencies or if he has a preference and he declined as he does not know anything about these agencies. VENESSA found home health agencies that are in network with patient's insurance that would come to [place]. There were only a few. VENESSA sent a referral to [facility] and [facility]. [facility] already responded patient is outside of their service area. VENESSA was informed that [employer] is connected with [facility]. [facility] and left him a voice mail requesting a return call regarding referral. Kayley HE
--- NOTE | 2022-05-29 15:06 | CASEMGMT ---
Addendum entered by Kayley Estrada 05/29/22 15:53: VENESSA updated physician, patient, and her . Kayley HE Original Note: SW has received denials from 4 home health agencies. The other options are too far away and will not come to [place] as it is out of their service area. VENESSA called patient's insurance, explained situation and asked what they advise. VENESSA was told to call [facility] at . They will assist SW in finding home care. VENESSA called this number and they asked that SW fax the referral. They will then find home health for this patient. SW faxed the referral to [facility]. Await return call. VENESSA will notify physician that this likely will not happen today. VENESSA will also notify patient and her . Plan: d/c home once home health has been arranged. Kayley HE
[2022-05-29 15:18] VITALS: BP 108/73; PULSE 86; RESP 16; TEMP 36.7; O2SAT 96
--- NOTE | 2022-05-29 15:51 | PCM.PN.HOSP ---
Reason for Visit Reason for Visit: Diagnoses Sepsis, unspecified organism (05/24/22) Metabolic encephalopathy (05/24/22) Unspecified hydronephrosis (05/24/22) Acute kidney failure, unspecified (05/24/22) Urinary tract infection, site not specified (05/24/22) Severe sepsis with septic shock (05/24/22) Subjective Subjective No issues medically overnight or currently. Unfortunately with patient's insurance we have been unable to find a home health care agency for her to be discharged to and we are still working on that process so this precludes discharge tonight. Hopeful for discharge tomorrow if we were able to set up home health care. Objective Data Objective Data Vital Signs: Vital Signs Temp Pulse Resp BP Pulse Ox O2 Del Method 99.8 F H 69 16 122/75 H 94 Room Air 05/29/22 08:42 05/29/22 08:42 05/29/22 08:42 05/29/22 08:42 05/29/22 08:42 05/29/22 08:42 Oxygen Delivery Method Room Air Weight: 66.7 kg Body Mass Index (BMI) 23.0 Intake & Output: Intake and Output for Last 24 Hours 05/27/22 05/28/22 05/29/22 23:59 23:59 23:59 Intake Total 1701.67 / 1701.67 1110 / 1110 Output Total 1400 / 1400 Balance 1701.67 / 1701.67 -290 / -290 Lab / Micro Data Result Diagrams: 05/28/22 06:22 05/29/22 06:01 Labs: Laboratory Results - last 24 hr 05/28/22 15:54: POC Glucose 164 H 05/28/22 22:21: POC Glucose 174 H 05/29/22 06:01: Sodium 142, Potassium 4.6, Chloride 112 H, Carbon Dioxide 24.0, Anion Gap 6, BUN 15, Creatinine 1.49 H, Estim Creat Clear Calc 28.90, Est GFR (MDRD) Af Amer 44 L, Est GFR (MDRD) Non-Af 36 L, BUN/Creatinine Ratio 10.1, Glucose 149 H, Calcium 8.4 L, Phosphorus 3.4, Magnesium 1.6 05/29/22 06:46: POC Glucose 152 H 05/29/22 10:19: POC Glucose 192 H Micro: Microbiology 05/27/22 13:04 Urine, Catheterized Urine Culture - Final Culture exhibits no growth. 05/24/22 18:05 Blood Culture (Wb) - Venous Blood Culture - Preliminary No growth in 48 hours. 05/24/22 18:30 Blood Culture (Wb) - Left Hand Blood Culture - Preliminary Klebsiella oxytoca 05/24/22 18:20 Urine Catheter - No Urine Culture - Final Klebsiella oxytoca 05/24/22 18:20 Nasal Secretion SARS-CoV-2 & FLU Antigen (Rapid) - Final Rhythm Strip Rhythm Strip: Sinus Tach Rate: 115 Ectopy: None Physical Exam Const alert, oriented x3, no apparent distress and average body habitus Constitutional Narrative: Elderly white female, sitting up in bed eating breakfast, watching television, appears comfortable, nontoxic HEENT head/scalp atraumatic and moist oral mucous membranes HEENT Narrative: Dentition is poor, Mallampati is 2, no thrush Head and Scalp: normocephalic Resp normal respiratory effort, no retractions, no use of accessory muscles and clear to auscultation bilaterally Auscultation: Negative for crackles, rhonchi or wheezes Cardio regular rate, regular rhythm, S1 normal heart sound, S2 normal heart sound, no murmurs, no rub, no gallops and no clicks GI normal to inspection, nondistended, normoactive bowel sounds, soft to palpation and non-tender Extremity no clubbing, cyanosis or edema Extremity Narrative: 2+ pedal pulses Neuro oriented x3, moves all extremities and no focal motor deficits Neuro Narrative: Slight tremor noted on exam seems to be intention and related to her Parkinson's Speech: speech normal Psych affect normal Psych Narrative: Very pleasant Assessment & Plan Assessment/Plan (1) Sepsis: (2) Metabolic encephalopathy: (3) YAMILEX (acute kidney injury): PLAN: Plan Sepsis secondary to Klebsiella oxytoca bacteremia/UTI -Presented with hypotension, lactic acidosis, leukocytosis, tachycardia, tachypnea, fever, YAMILEX, mental status changes -Urine and blood cultures are both positive for Klebsiella oxytoca -We will need 10 days of antibiotics--> day 5 of 10 -No pressors required during her hospital course -No was removed and no significant residual noted Right hydronephrosis -Status post stenting by urology -Plan is for outpatient ureteroscopy in the next few weeks -No significant stricture or stone noted however it suspected that the narrowing was related to inflammation and infection -No removal as above -Need follow-up with urology in 2 weeks YAMILEX -Resolving and almost normalized -Baseline serum creatinine appears to be between 1 and 1.2 -Serum creatinine on presentation was 3.16 -Current serum creatinine is 1.49 -Slight bump however we did discontinue IV fluids -Encourage oral intake and repeat in a.m. -Continue to hold home losartan--> blood pressure is still within the normal range without any antihypertensives -Continue to avoid nephrotoxins as able -Repeat BMP in a.m. Anemia -Patient did appear to be hemoconcentrated on presentation -We will check stool for guaiac--> still pending -Suspect some of her drop is dilutional -Reticulocyte count is slightly elevated 1.9 -Ferritin is elevated at 419 however this is an acute phase reactant may be elevated related to that -Total iron is 23 with a 14% iron saturation however TIBC is low not high indicating likely related to anemia of chronic disease -Hemoglobin is stable -Repeat CBC in a.m. DM-2 -Hold home oral agents -cont SSI -Accuchecks HPL -Restart statin HTN -Hypotension has resolved however blood pressure is not elevated despite not utilizing any antihypertensives -Continue to hold home metoprolol -Continue to hold losartan -May be able to begin reinitiation of home antihypertensives tomorrow CAD -see above -continue ASA Parkinson's Disease -cont carbadopa/levodopa Overactive bladder -solifenacin Hypothyroidism -cont thyroid replacement Dementia -continue memantine DVT prophylaxis -cont subq heparin Code Status -Full Code Plan is for now discharge home with home health once home health agency identified-hopeful for tomorrow Charges/Coding Visit Charges Inpatient E&M: 88186 Subs Hosp L2
[2022-05-29 17:31] LABS: Bedside Glucose 146 mg/dL (74-106)
[2022-05-29 22:07] VITALS: BP 109/68; PULSE 64; RESP 16; TEMP 36.9; O2SAT 96
[2022-05-29] MEDS: LORazepam 0.5 MG Tablet PO (22:12)
[2022-05-29] MEDS: Atorvastatin Calcium 10 MG Tablet PO (22:20)
[2022-05-29 23:15] LABS: Bedside Glucose 187 mg/dL (74-106)
[2022-05-30 03:30] VITALS: BP 120/73; PULSE 62; RESP 16; TEMP 36.8; O2SAT 95
[2022-05-30 06:27] LABS: Absolute Lymphocyte Count 1.54 X10^3/uL (0.83-4.51); Absolute Neutrophil Count 3.2 X10^3/uL (2.0-7.7); Basophil# 0.01 X10^3/uL; Basophil% 0.2 % (0-1); Eosinophils% 5.2 % (0-5); Hematocrit 27.3 % (37-47); Hemoglobin 8.4 g/dL (12.0-15.0); Lymphocyte # 1.54 X10^3/ul (0.83-4.51); Lymphocyte % 26.6 % (19-41); Mean Corp Hgb Conc 30.8 g/dL (32-36); Mean Platelet Vol. 10.6 fl (6.2-12.0); Monocyte# 0.61 X10^3/uL; Monocyte% 10.5 % (0-10); NRBC Flagged by Analyzer 0 % (0-5); Neutrophil # 3.22 X10^3/uL (2.7-7.7); Neutrophil % 55.6 % (47-70); Platelet Count 222 K/mm3 (150-450); RBC Distribution Width CV 14.6 % (11.6-14.6); RBC Distribution Width SD 48.7 fl (35.1-43.9); White Blood Count 5.8 K/mm3 (4.4-11.0)
[2022-05-30] MEDS: Insulin Lispro 100 UNIT/ML INSULN.PEN SC ×2 (06:45→10:50)
[2022-05-30] MEDS: Carbidopa/Levodopa 25/100 Tablet PO ×3 (06:46→15:18)
[2022-05-30] MEDS: Levothyroxine 50 MCG Tablet PO (06:46)
[2022-05-30 07:01] LABS: Anion Gap 7 (5-15); BUN 17 mg/dL (7-18); BUN/Creat Ratio 11.7 RATIO (10-20); Calcium,Total 8.4 mg/dL (8.5-10.1); Chloride 111 mmol/L (98-107); Creatinine, Serum 1.45 mg/dL (0.55-1.02); EST Glomerular Filtration Rate 37 mL/min (>60); Est Glom Filt Rate - Afr Amer 45 mL/min (>60); Glucose 169 mg/dL (74-106); Sodium Level 142 mmol/L (136-145)
[2022-05-30 07:25] LABS: Bedside Glucose 160 mg/dL (74-106)
[2022-05-30] MEDS: Aspirin 81 MG TAB.CHEW PO (08:22)
[2022-05-30] MEDS: Memantine Hydrochloride 10 MG Tablet PO (08:22)
[2022-05-30] MEDS: RisperiDONE 0.5 MG Tablet PO (08:23)
[2022-05-30] MEDS: Heparin Injection (Vial) 5,000 UNIT/ML VIAL 5000 UNIT SC (08:23)
[2022-05-30] MEDS: Glucerna Shake 120 ML LIQUID PO ×2 (08:25→10:52)
[2022-05-30 08:38] VITALS: BP 123/83; PULSE 62; PULSE 72; RESP 16; TEMP 36.6; O2SAT 96
[2022-05-30 08:41] VITALS: O2SAT 96
[2022-05-30 10:01] VITALS: O2SAT 96
--- NOTE | 2022-05-30 10:50 | CASEMGMT ---
VENESSA called [facility] and spoke with Toi. Toi said patient's case is being worked on right now. Someone will get back to VENESSA when an agency is found. Await return call. Kayley HE
[2022-05-30 11:29] VITALS: BP 124/85; PULSE 83; RESP 16; TEMP 36.6; O2SAT 97
[2022-05-30 11:33] VITALS: PULSE 66
[2022-05-30 11:41] LABS: Bedside Glucose 199 mg/dL (74-106)
[2022-05-30] MEDS: Menthol/Lanolin/Calamine/Znox 113 GM Tube 1 APPLIC TOPICAL (14:06)
--- NOTE | 2022-05-30 14:17 | DS.PCM_ITS ---
Providers Date of Admission: 05/24/22 Date of Discharge: 05/30/22 Primary Care Physician: Dr. Dannielle John MD Consultations 05/24/22 21:59 Consult: Government Property Inspector / Pulmonary Medicine Routine Consulting Provider: Pulmonary Medicine marcia Rolfe Reason for Consult: Septic shock EMERGENT Consult: No Notified: Yes Date Notified: 05/24/22 Time Notified: 21:59 Method of Notification: Text 05/25/22 06:14 Consult: Onc/Wound/chisel mortiser operator Routine Comment: pressure ulcer coccyx 05/26/22 16:01 Consult: Urology Routine Consulting Provider: Sanam Ramirez Reason for Consult: Hydronephrosis EMERGENT Consult: No Notified: Yes Date Notified: 05/26/22 Time Notified: 16:02 Method of Notification: Text Reason For Visit: SEPTIC SHOCK Diagnosis Discharge Diagnosis (1) Sepsis: Status: Acute Code(s): A41.9 - Sepsis, unspecified organism (2) Metabolic encephalopathy: Status: Acute Code(s): G93.41 - Metabolic encephalopathy (3) YAMILEX (acute kidney injury): Status: Acute Code(s): N17.9 - Acute kidney failure, unspecified Medications at Discharge Home Medications levothyroxine 50 mcg tablet 50 mcg PO DAILY 08/20/19 lorazepam 0.5 mg tablet 0.5 mg PO QHS 08/20/19 losartan 50 mg tablet 50 mg PO DAILY 08/20/19 metformin 1,000 mg tablet 1,000 mg PO BID 08/20/19 metoprolol tartrate 25 mg tablet 25 mg PO BID 08/20/19 simvastatin 20 mg tablet 20 mg PO QHS 08/20/19 aspirin 81 mg tablet 81 mg PO DAILY 05/24/22 carbidopa 25 mg-levodopa 100 mg tablet 1.5 tab PO TID 05/24/22 glipizide 2.5 mg tablet, extended release 24 hr 2.5 mg PO DAILY 05/24/22 memantine 10 mg tablet 10 mg PO DAILY 05/24/22 risperidone 0.5 mg tablet 0.5 mg PO DAILY 05/24/22 solifenacin 5 mg tablet 5 mg PO DAILY 05/24/22 cephalexin 500 mg capsule 500 mg PO TID #15 caps 05/30/22 Hospital Course Operations - (Right ureteral stent placement) Procedures - (Brain CT/renal ultrasound/CT of the abdomen and pelvis) Summary of Care Provided Minutes Spent on Discharge: 38 Hospital Course: Mrs. Rod is a 77-year-old white female who presented to the emergency department at [facility] on 05/24/2022 with generalized weakness, fevers, and the inability to walk which had been going on for 1 day prior to presentation. She was in her usual state of health until the day of presentation when she started to feel weak and had a fever. She was walking to the bathroom when she had a fall and EMS was called. She was found to have a fever at their arrival. In the emergency department she was borderline hypotensive with tachycardia and a respiratory rate of 25 with a Tmax of 102. She had a leukocytosis with a left shift and was found to have an YAMILEX with a serum creatinine of 3.16. Her lactic acid was 7.1. She was admitted to the ICU and diagnosed with sepsis. She responded well to fluid resuscitation and was placed on ceftriaxone for suspected UTI causing sepsis. She was fluid responsive and did not require pressors during her hospitalization. Cultures grew out Klebsiella sensitive to ceftriaxone and she was maintained on ceftriaxone until discharge, at which time, she was discharged on Keflex 500 mg p.o. 3 times daily for another 5 days to complete a 10-day course. We obtained a retroperitoneal ultrasound given her severe infection and she was found to have right hydronephrosis. Urology was consulted and she was taken for stent placement on 05/27/2022. We are able to remove her No without any residuals and she will follow-up as an outpatient with Dr. Ramirez in the next 2 weeks. She will need a repeat uroscopy in the future. Her acute kidney injury as noted above was 3.16 on presentation and serum creatinine had improved to 1.33 at the time of discharge. I did hold her losartan at discharge as her blood pressure was normal but she had not been on her antihypertensives. I have asked her to follow-up with her primary care physician for reevaluation of blood pressure to see if she should reinitiate this in the future. She had noted anemia which was stable throughout her hospital course when she was fluid resuscitated. We did obtain iron studies and they were more consistent with anemia of chronic disease than iron deficiency. Her ferritin was elevated however I suspect this was related to her critical illness and was an acute phase reactant. Blood sugars were stable throughout her hospital course. She was seen by physical and Occupational Therapy and they recommended ongoing therapy at discharge. Home health was felt to be sufficient. Once we identified home health services for her we were able to discharge her home in stable condition on 05/30/2022. Home health services will likely start on 06/02/2022. Discharge diagnoses: Sepsis secondary to Klebsiella oxytoca bacteremia/UTI Right hydronephrosis/hydroureter YAMILEX-resolved Debility/generalized weakness secondary to critical illness with underlying neurological disorder Anemia-stable DM-2 Hyperlipidemia Hypertension CAD Parkinson disease Overactive bladder Hypothyroidism Dementia Physical Exam Const alert, oriented x3, no apparent distress and average body habitus Constitutional Narrative: Elderly white female, sitting up in bed eating breakfast, ambulating with therapy using a walker appears comfortable, nontoxic General Appearance: cooperative, comfortable, well kempt and well developed Orientation / Consciousness: awake, oriented to person, oriented to place and oriented to time Exam Limitations: no limitations HEENT normocephalic, head/scalp atraumatic, hearing grossly normal bilaterally and moist oral mucous membranes HEENT Narrative: Dentition is poor, Mallampati is 2, no thrush Eyes PERRL and EOMs intact bilaterally Eyes Narrative: Conjunctiva are mildly pale, no scleral icterus Neck no lymphadenopathy, supple and no JVD Neck Narrative: Trachea midline, no thyroid enlargement Resp normal respiratory effort, no retractions, no use of accessory muscles and clear to auscultation bilaterally Auscultation: Negative for crackles, rhonchi or wheezes Cardio regular rate, regular rhythm, S1 normal heart sound, S2 normal heart sound, no murmurs, no rub, no gallops and no clicks GI normal to inspection, nondistended, normoactive bowel sounds, soft to palpation and non-tender Extremity no clubbing, cyanosis or edema Extremity Narrative: 2+ pedal pulses Skin no rashes or lesions noted, no wounds, skin turgor normal and no jaundice Neuro oriented x3, CN's II-XII intact bilaterally, moves all extremities, no focal m otor deficits and no sensory deficits noted Neuro Narrative: Slight tremor noted on exam seems to be intention and related to her Parkinson's Speech: speech normal Psych affect normal Psych Narrative: Very pleasant Weight / BMI Weight Weight: 66 kg Body Mass Index (BMI) 23.0 ABG / Lab / Microbiology Data Result Diagrams: 05/30/22 05:52 05/30/22 05:52 Laboratory: Laboratory Results - last 24 hr 05/29/22 17:06: POC Glucose 146 H 05/29/22 22:11: POC Glucose 187 H 05/30/22 05:52: WBC 5.8, RBC 3.00 L, Hgb 8.4 L, Hct 27.3 L, MCV 91.0, MCH 28.0, MCHC 30.8 L, RDW Std Deviation 48.7 H, RDW Coeff of Festus 14.6, Plt Count 222, MPV 10.6, Immature Gran % (Auto) 1.900 H, Neut % (Auto) 55.6, Lymph % (Auto) 26.6, Rowan % (Auto) 10.5 H, Eos % (Auto) 5.2 H, Baso % (Auto) 0.2, Absolute Neuts (auto) 3.2, Absolute Lymphs (auto) 1.54, Nucleated RBC % 0 05/30/22 05:52: Sodium 142, Potassium 4.0, Chloride 111 H, Carbon Dioxide 24.0, Anion Gap 7, BUN 17, Creatinine 1.45 H, Estim Creat Clear Calc 29.70, Est GFR (MDRD) Af Amer 45 L, Est GFR (MDRD) Non-Af 37 L, BUN/Creatinine Ratio 11.7, Glucose 169 H, Calcium 8.4 L 05/30/22 06:45: POC Glucose 160 H 05/30/22 10:49: POC Glucose 199 H Microbiology: Microbiology 05/24/22 18:30 Blood Culture (Wb) - Left Hand Blood Culture - Final Klebsiella oxytoca 05/24/22 18:05 Blood Culture (Wb) - Venous Blood Culture - Final No growth in 5 days. 05/27/22 13:04 Urine, Catheterized Urine Culture - Final Culture exhibits no growth. 05/24/22 18:20 Urine Catheter - No Urine Culture - Final Klebsiella oxytoca 05/24/22 18:20 Nasal Secretion SARS-CoV-2 & FLU Antigen (Rapid) - Final D/C Instructions Discharge Diet: Low fat / Low cholesterol and 1800 Calorie Control Diet Discharge Activity: Return to Normal Activity Meaningful Use Info Meaningful Use Diagnoses (Choose all that apply): None applicable Discharge Plan Admission Admit Date/Time: 05/24/22 20:36 Primary Reason for Your Visit: Fever/confusion Attending Provider: Adilene Guzman Primary Care Provider: Dannielle John Consulting Providers: Sheba Murrell ; Fidel Jaramillo ; Art Peterson ; Thomas Bradford ; Red Gracia ; Ailyn Nash NP ; Sanam Ramirez Discharge Orders/Prescriptions Prescriptions: New cephalexin 500 mg capsule 500 mg PO TID Qty: 15 0RF Continued lorazepam 0.5 MG tablet 0.5 mg PO QHS levothyroxine 50 MCG tablet 50 mcg PO DAILY simvastatin 20 MG tablet 20 mg PO QHS metformin 1,000 MG tablet 1,000 mg PO BID metoprolol tartrate 25 MG tablet 25 mg PO BID glipizide 2.5 mg tablet extended release 24hr 2.5 mg PO DAILY Label Comments: Take 1 tablet by mouth daily with breakfast. Rx Instructions: with breakfast aspirin 81 mg Tablet 81 mg PO DAILY carbidopa-levodopa 25-100 mg tablet 1.5 tab PO TID Label Comments: Take 1 and 1/2 tablets by mouth every morning AND 1 and 1/2 tablets every afternoon AND 1 and 1/2 tablets every evening. (8AM, Noon, 4PM).. memantine 10 mg tablet 10 mg PO DAILY Label Comments: Take 1 tablet by mouth twice daily. solifenacin 5 mg tablet 5 mg PO DAILY Label Comments: Take 1 tablet by mouth once daily. risperidone 0.5 mg tablet 0.5 mg PO DAILY Label Comments: Take 1 tablet by mouth twice daily. Held losartan 50 MG tablet 50 mg PO DAILY Hold Instructions: until follow up at PCP office Referrals / Follow Up: Sanam Ramirez MD [Med Staff - Active Staff] - Within 2 Weeks (Office should c all you for follow-up appointment-if you do not hear from them by 06/03/2022 please call) Dannielle John MD [Primary Care Provider] - Within 1 Week Disposition Disposition (needs filled in before D/C Order can be placed): Home, Self Care Charges/Coding Visit Charges Inpatient E&M: 68732 Disch Hosp >30min
--- NOTE | 2022-05-30 15:22 | CASEMGMT ---
VENESSA received a call from Leola at [facility]. Leola asked that VENESSA send her a copy of the home health order that is physically signed by the physician. Physician signed order and VENESSA faxed it to Leola. VENESSA asked Leola if home health has been set up. Leola said she is getting ready to send it the referral team. VENESSA asked if patient has to stay in the hospital until it is arranged. Leola said that is not necessary. They will contact patient when they have an agency arranged. VENESSA notified physician, patient, and left a message for patient's . VENESSA also put [facility] name and number on patient's discharge instructions. Plan: d/c home with patient's insurance working on setting up home health. Kayley HE
--- NOTE | 2022-06-02 11:53 | CASEMGMT ---
ARIANA CM: Call placed to [facility] in follow-up to [facility] request. Per Dariusz a referral has been sent to [facility]. This referral is pending review for acceptance. Per Kayley, they are continuing to work this referral to secure a [facility] provider. Juan Dumont RN CM
--- NOTE | 2022-06-04 11:50 | CASEMGMT ---
ARIANA HUERTA Follow-up: Call placed to [facility] in follow-up to the establishment of home care services for this patient. [facility] is reported to be working on establishing a provider. Juan Dumont RN CM
--- NOTE | 2022-06-06 10:00 | CASEMGMT ---
RN CM Follow-up: Call placed to [facility] in follow-up to pt's home health care set-up. This RN CM spoke with Lucia who states that [facility] is continuing to work on finding a provider/staffing. Lucia was providing this RN CM's phone number to [facility] to contact this RN CM with update on status of this referral request. Juan Dumont RN CM
--- NOTE | 2022-06-06 16:57 | CASEMGMT ---
ARIANA HUERTA: Attempted to contact [facility] at the provided extension [phone] but received an unidentified voicemail box. Message left without pt information with a request to return this call. Juan Dumont RN CM
--- NOTE | 2022-06-06 17:11 | CASEMGMT ---
ARIANA CM: Call placed to pt. Pt's spouse Jeet answered and states pt is doing well since discharge. States they saw Dr. Ramirez today and pt is receiving additional testing including urine cx and blood work. States pt has a stone that needs treated and he is working with Dr. Ramirez's office and a provider at [facility] for treatment of this stone. [facility] pt did complete the antibiotic prescribed at discharge. Notified pt's spouse that [facility] is continuing to search for a home health provider but that calls have not been returned for additional details. Pt's spouse expressed understanding and denies any ongoing concerns or questions at this time. Juan Dumont RN CM
--- NOTE | 2022-07-01 09:45 | CASEMGMT ---
ARIANA HUERTA Follow-up: Call placed to pt's spouse in follow-up to previous attempts to arrange home healthcare services for pt. Calls received from [facility] who had been contacted with [facility] regarding a one time contract to provide pt with [facility] services. [facility] and [facility] have not been able to agree on final terms of the contract as of this date. Multiple calls to pt's spouse to discuss pt's condition and current needs and missed calls from spouse received. On this date, pt's spouse returned this RN DEANNA's call and ARIANA HUERTA spoke with spouse. Per spouse, pt has been doing ok since discharge but would continue to benefit from skilled home healthcare services. Pt's spouse states that he is changing insurance to [employer] which will be effective 07/19/22. States he will revisit home health at that time and wants to speak with [facility] regarding in-network providers after 07/19. Educated spouse that [facility] would be in-network with [employer] and that he will have a larger number of providers to chose from with this insurance. Pt's spouse expressed understanding and states he will review after 07/19. This RN DEANNA offered to assist if needed at that time. Pt's spouse expressed understanding and acknowledged offer. Will assist further based on pt's spouse's needs after 07/19/22. Juan Dumont RN CM
== END 2022-05-30 16:00 | disposition home or self-care (01) | DRG 853 ==
LOC: ED 20:50 → ICU 21:00 → PCU 05-27 19:59
PROVIDERS: Anesthesiology; Urology; Admitting Provider Internal Medicine; Emergency Provider Emergency Medicine; PCP Internal Medicine; Visit Provider Internal Medicine
PROC: 0T768DZ Dilation of Right Ureter with Intraluminal Device, Via Natural or Artificial Opening Endoscopic (ICD-10-PCS; CPT 52332; principal; 2022-05-27 11:50)
DX: A41.59 Other Gram-negative sepsis (principal); G93.41 Metabolic encephalopathy; E87.20 Acidosis, unspecified; N17.9 Acute kidney failure, unspecified; N13.6 Pyonephrosis; D63.8 Anemia in other chronic diseases classified elsewhere; E11.22 Type 2 diabetes mellitus with diabetic chronic kidney disease; E11.65 Type 2 diabetes mellitus with hyperglycemia; G31.83 Neurocognitive disorder with Lewy bodies; F02.80 Dementia in other diseases classified elsewhere, unspecified severity, without behavioral disturbance, psychotic disturbance, mood disturbance, and anxiety; Z79.4 Long term (current) use of insulin; G20 Parkinson's disease; D64.9 Anemia, unspecified; E03.9 Hypothyroidism, unspecified; E78.5 Hyperlipidemia, unspecified; I12.9 Hypertensive chronic kidney disease with stage 1 through stage 4 chronic kidney disease, or unspecified chronic kidney disease; E87.5 Hyperkalemia; N18.9 Chronic kidney disease, unspecified; F41.9 Anxiety disorder, unspecified; I25.10 Atherosclerotic heart disease of native coronary artery without angina pectoris; D50.9 Iron deficiency anemia, unspecified; R74.02 Elevation of levels of lactic acid dehydrogenase [LDH]; Z79.82 Long term (current) use of aspirin; R53.81 Other malaise
CPT/HCPCS: 36415; 51702; 70450; 71045; 74176; 76000; 76770; 80048; 80053; 81001; 82728; 82962; 83540; 83550; 83605; 83735; 84100; 84484; 85025; 85045; 85610; 85730; 87040; 87077; 87086; 87088; 87186; 87428; 93005; 94668; 97116; 97162; 97166; 97530; 97535; 97802; 97803; 99252; 99285; J7030; J7040; J7120; A4216; C2625; G0463; J0696; J2405

== ENCOUNTER 2022-06-12 07:12 | Day surgery (SDC) | payer MEDICARE, SELFPAY ==
[2022-06-12] VITALS (8 sets, daily range): BP systolic 86–107; BP diastolic 43–57; PULSE 66–91; RESP 16–18; TEMP 36.2–36.8; O2SAT 93–100; BMI 22.7
[2022-06-12] MEDS: Lactated Ringers 1,000 ML 15 ML IV (08:10)
--- NOTE | 2022-06-12 08:23 | OP.PCM_ITS ---
Problems Associated Problem List Diagnoses (1) Hydroureteronephrosis: Report of Operation Date of Procedure: 06/12/22 Pre-Operative Diagnosis: Right hydroureteronephrosis Post-Operative Diagnosis: Same, distal ureteral obstruction Surgery/Procedure Performed:: Cystoscopy, right retrograde pyelogram, right ureteroscopy, right ureteral stent change Surgeon: Sanam Ramirez Type of Anesthesia: General Description of Procedure: The patient is a 77-year-old female who underwent an urgent cystoscopy with right ureteral stent insertion for infection and right hydronephrosis with no stone identified. She now presents for retrograde pyelogram and ureteroscopy for further evaluation. Informed consent was obtained. The patient was taken to the operating room and placed on the operating room table. Anesthesia monitored the head, neck, airway, IV access and vital signs throughout the case. Once anesthesia was appropriately administered, the patient was placed into dorsolithotomy position was prepped and draped in usual sterile fashion. The cystoscope was inserted through the urethra under direct visualization. The ureteral stent was identified and removed. Using an 8 Indonesian cone-tip catheter, a retrograde pyelogram was performed under fluoroscopic visualization revealing a distal ureteral narrowing, likely a couple of centimeters in length. At this time 2 separate 0.035 Glidewire's were passed through the ureter with difficulty, requiring use of the pusher. The wires were seen on fluoroscopic visualization within the renal pelvis. The flexible ureteroscope was inserted over one of the glide wires and access to the distal ureter was obtained. Visually, at the area of the narrowing identified on retrograde pyelogram, there is either a ureteral stricture or an aggressive ureteral tumor with almost obliteration of the ureteral lumen. The scope was unable to pass. The ureteroscope was then removed and the cystoscope was used to place a 6 x 24 JJ stent over the wire with good curling position in the renal pelvis as well as the urinary bladder. The patient's bladder was then emptied and she was awakened and taken to the recovery room in good condition. There were no complications during this procedure. Grafts/Implants Used: 6 x 24 JJ stent Complications None Admit VTE Documentation VTE Present on Admission: Yes VTE Mechan Device Prophylaxis: SCD's VTE Pharm Prophylaxis ordered?: No Reason prophylaxis not ordered:: Treatment Not Indicated
--- NOTE | 2022-06-12 08:25 | PCM.DC ---
Discharge Instructions Diet Discharge Diet: No restrictions Activity Discharge Activity: Return to Normal Activity May resume sexual activity in: No Restrictions Dressing / Incision Call your doctor if you observe: Fever of 101 or Higher, Inability to urinate and Inability to have a bowel movement Follow Up Care Please Follow Up With: Sidney Garcia MD When: Call the office for appointment Test Results: Test results from this visit will be discussed in further detail at your follow-up appointment, if applicable. Discharge Plan Admission Attending Provider: Sanam Ramirez Primary Care Provider: Dannielle John Discharge Orders/Prescriptions Prescriptions: New oxycodone-acetaminophen [Percocet] 5-325 mg tablet 1 tab PO Q8H PRN (Reason: pain) 3 Days Qty: 9 0RF cephalexin [cephalexin] 500 mg capsule 500 mg PO Q12 3 Days Qty: 6 0RF phenazopyridine [phenazopyridine] 100 mg tablet 100 mg PO TID Qty: 30 0RF Continued losartan 50 MG tablet 50 mg PO DAILY Hold Instructions: until follow up at PCP office lorazepam 0.5 MG tablet 0.5 mg PO QHS levothyroxine 50 MCG tablet 50 mcg PO DAILY simvastatin 20 MG tablet 20 mg PO QHS metformin 1,000 MG tablet 500 mg PO BID metoprolol tartrate 25 MG tablet 25 mg PO BID glipizide 2.5 mg tablet extended release 24hr 2.5 mg PO DAILY Label Comments: Take 1 tablet by mouth daily with breakfast. Rx Instructions: with breakfast aspirin 81 mg Tablet 81 mg PO DAILY carbidopa-levodopa 25-100 mg tablet 1.5 tab PO TID Label Comments: Take 1 and 1/2 tablets by mouth every morning AND 1 and 1/2 tablets every afternoon AND 1 and 1/2 tablets every evening. (8AM, Noon, 4PM).. memantine 10 mg tablet 10 mg PO BID Label Comments: Take 1 tablet by mouth twice daily. solifenacin 5 mg tablet 5 mg PO DAILY Label Comments: Take 1 tablet by mouth once daily. risperidone 0.5 mg tablet 0.5 mg PO BID Label Comments: Take 1 tablet by mouth twice daily. Referrals / Follow Up: Dannielle John MD [Primary Care Provider] - Disposition Disposition (needs filled in before D/C Order can be placed): Home, Self Care
[2022-06-12 08:31] LABS: Bedside Glucose 175 mg/dL (74-106)
[2022-06-12] MEDS: Cefazolin 2 GM in 0.9% Normal Saline 100 ML IV (08:36)
[2022-06-12 09:55] LABS: Bedside Glucose 177 mg/dL (74-106)
== END 2022-06-12 11:14 | disposition home or self-care (01) ==
LOC: SDC 07:15 → AC 07:17
PROVIDERS: PCP Internal Medicine; Referring Provider Urology; Visit Provider Urology
PROC: 0TJ98ZZ Inspection of Ureter, Via Natural or Artificial Opening Endoscopic (ICD-10-PCS; CPT 52352; principal; 2022-06-12 08:40)
DX: N13.30 Unspecified hydronephrosis (principal); G20 Parkinson's disease; N17.9 Acute kidney failure, unspecified; E11.9 Type 2 diabetes mellitus without complications; I25.10 Atherosclerotic heart disease of native coronary artery without angina pectoris; I10 Essential (primary) hypertension; Z95.1 Presence of aortocoronary bypass graft; I25.2 Old myocardial infarction; Z86.73 Personal history of transient ischemic attack (TIA), and cerebral infarction without residual deficits; E03.9 Hypothyroidism, unspecified; Z87.891 Personal history of nicotine dependence; N39.0 Urinary tract infection, site not specified
CPT/HCPCS: 52005; 53665; 52310; 00910; 76000; 82962; J7120; C2617; J2405

== ENCOUNTER 2022-09-12 09:27 | Day surgery (SDC) | payer MEDICARE, SELFPAY ==
--- NOTE | 2022-09-12 09:39 | PCM.HP.STD ---
HPI - General General Date of Service: 09/12/22 HPI Narrative LOYDA GARCIA, is a 77 F who presents with a right ureteral stent which is in place again to take her to surgery and working to go up with the ureteroscope inspect the entire right side and look for stones and probably remove the stent on the right side. She had a stent placed by another urologist Dr. Ramirez [facility] Medical History (Updated 09/05/22 @ 14:32 by Anastasia Pugh) Back pain Benign essential hypertension Bladder disease Depression Diabetes Former smoker Generalized anxiety disorder GERD (gastroesophageal reflux disease) High cholesterol History of heart attack HLD (hyperlipidemia) Hydroureteronephrosis Hypertension Kidney stone Parkinson's disease Post-menopausal Thyroid disease TIA (transient ischemic attack) Type II diabetes mellitus Walker as ambulation aid Wears dentures Home Medications levothyroxine 50 mcg tablet 50 mcg PO DAILY 08/20/19 [History Last Taken Unknown] lorazepam 0.5 mg tablet 0.5 mg PO QHS 08/20/19 [History Last Taken Unknown] metformin 1,000 mg tablet 500 mg PO BID 08/20/19 [History Last Taken Unknown] metoprolol tartrate 25 mg tablet 25 mg PO BID 08/20/19 [History Last Taken Unknown] simvastatin 20 mg tablet 20 mg PO QHS 08/20/19 [History Last Taken Unknown] aspirin 81 mg tablet 81 mg PO DAILY 05/24/22 [History Last Taken Unknown] carbidopa 25 mg-levodopa 100 mg tablet 1.5 tab PO TID 05/24/22 [History Last Taken Unknown] glipizide 2.5 mg tablet, extended release 24 hr 2.5 mg PO DAILY 05/24/22 [History Last Taken Unknown] memantine 10 mg tablet 10 mg PO BID 05/24/22 [History Last Taken Unknown] risperidone 0.5 mg tablet 0.5 mg PO BID 05/24/22 [History Last Taken Unknown] solifenacin 5 mg tablet 5 mg PO DAILY 05/24/22 [History Last Taken Unknown] Allergy/AdvReac Type Severity Reaction Status Date / Time No Known Allergies Allergy Verified 06/03/22 08:48 Family History Mother Heart disease Hypertension Father No problems noted. Surgical History (Updated 09/05/22 @ 14:32 by Anastasia Pugh) History of cystoscopy History of ureteroscopy Hx of CABG Social History household members: spouse housing: house Smoking Status: Former smoker alcohol intake: never substance use type: does not use Vital Signs Vital Signs Vital Signs: Weight Weight: 58.967 kg
--- NOTE | 2022-09-12 09:41 | DCINST_ITS ---
Discharge Instructions Diet Discharge Diet: No restrictions Activity Discharge Activity: Return to Normal Activity May resume sexual activity in: No Restrictions Follow Up Care Please Follow Up With: Sidney Garcia MD When: Call the office for appointment Test Results: Test results from this visit will be discussed in further detail at your follow- up appointment, if applicable. Discharge Plan Admission Primary Reason for Your Visit: remove stent and treat stone Attending Provider: Sidney Garcia Primary Care Provider: Dannielle John Discharge Orders/Prescriptions Prescriptions: New ciprofloxacin HCl [Cipro] 500 mg tablet 500 mg PO BID Qty: 6 0RF Continued lorazepam 0.5 MG tablet 0.5 mg PO QHS levothyroxine 50 MCG tablet 50 mcg PO DAILY simvastatin 20 MG tablet 20 mg PO QHS metformin 1,000 MG tablet 500 mg PO BID metoprolol tartrate 25 MG tablet 25 mg PO BID glipizide 2.5 mg tablet extended release 24hr 2.5 mg PO DAILY Label Comments: Take 1 tablet by mouth daily with breakfast. Rx Instructions: with breakfast aspirin 81 mg Tablet 81 mg PO DAILY Rx Instructions: INSTRUCTED TO STOP 5 DAYS PRIOR TO OR carbidopa-levodopa 25-100 mg tablet 1.5 tab PO TID Label Comments: Take 1 and 1/2 tablets by mouth every morning AND 1 and 1/2 tablets every afternoon AND 1 and 1/2 tablets every evening. (8AM, Noon, 4PM).. memantine 10 mg tablet 10 mg PO BID Label Comments: Take 1 tablet by mouth twice daily. solifenacin 5 mg tablet 5 mg PO DAILY Label Comments: Take 1 tablet by mouth once daily. risperidone 0.5 mg tablet 0.5 mg PO BID Label Comments: Take 1 tablet by mouth twice daily. Referrals / Follow Up: Sidney Garcia MD [Med Staff - Active Staff] - Dannielle John MD [Primary Care Provider] - Disposition Disposition (needs filled in before D/C Order can be placed): Home, Self Care
[2022-09-12 10:04] VITALS: BP 117/76; PULSE 56; RESP 16; TEMP 36.6; O2SAT 100; BMI 25.4
[2022-09-12] MEDS: Lactated Ringers 1,000 ML 15 ML IV (10:07)
[2022-09-12] MEDS: Cefazolin 2 GM in 0.9% Normal Saline 100 ML IV (10:28)
--- NOTE | 2022-09-12 10:59 | OP.PCM_ITS ---
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 On reviewing the images on seeing obstructing stone I suspect she has refluxing ureter and chronic hydronephrosis and has chronic infections of her kidney she has a chronic medical problems and a poor performance status. Recommended we take her to surgery evaluate the ureter and remove the stent. Patient was taken back to the operating room and is with duction of general anesthesia she was placed in dorsolithotomy position went of the bladder the chronic inflammation of the bladder from chronic infections the stent was in place pulled the stent out the meatus put a wire through the stent then over the wire went in with a flexible ureteroscope once I got into the kidney there was a lot of pyuria and debris within the kidney I then put the ureteroscope to suction and suctioned out all this pyuria irrigate out the kidney with saline and then worked my way down the ureter and suctioned all the fluid of the kidney and the right side but she had no obstruction no stones she has chronic infections of the right kidney we will send her home with some antibiotics but I do not think she needs a stent that she is does not have obstruction people as refluxing ureter and chronic infections of the right kidney. Findings to be medically managed with antibiotics carefully as to avoid C. difficile and other problems. Bladder was drained anesthetic was reversed she will follow-up in 6 weeks my office Surgeon: Sidney Garcia Type of Anesthesia: General Drains: none Admit VTE Documentation VTE Present on Admission: No VTE Mechan Device Prophylaxis: SCD's
[2022-09-12 11:12] VITALS: BP 117/76; BP 124/54; PULSE 50; RESP 14; TEMP 36.4; O2SAT 100
[2022-09-12 11:15] VITALS: BP 117/76; BP 119/55; PULSE 54; RESP 14; O2SAT 100
[2022-09-12 11:30] VITALS: BP 116/55; BP 117/76; PULSE 53; RESP 14; O2SAT 97
[2022-09-12 11:35] LABS: Bedside Glucose 165 mg/dL (74-106)
[2022-09-12 11:44] LABS: Bedside Glucose 155 mg/dL (74-106)
[2022-09-12 11:48] VITALS: BP 117/76; BP 125/57; PULSE 52; RESP 14; TEMP 36.6; O2SAT 98
[2022-09-12 12:52] VITALS: BP 117/76; BP 122/56; PULSE 54; RESP 16; TEMP 36.4; O2SAT 96
== END 2022-09-12 12:55 | disposition home or self-care (01) ==
LOC: SDC 09:30 → AC 09:30
PROVIDERS: PCP Internal Medicine; Referring Provider Urology; Visit Provider Urology
PROC: 0TJ98ZZ Inspection of Ureter, Via Natural or Artificial Opening Endoscopic (ICD-10-PCS; CPT 52352; principal; 2022-09-12 11:20)
DX: N15.9 Renal tubulo-interstitial disease, unspecified (principal); E11.9 Type 2 diabetes mellitus without complications; I10 Essential (primary) hypertension; N13.9 Obstructive and reflux uropathy, unspecified; E78.00 Pure hypercholesterolemia, unspecified; Z87.891 Personal history of nicotine dependence; E07.9 Disorder of thyroid, unspecified
CPT/HCPCS: 52310; 00910; 76000; 82962; J7120; C1769; J2405

== ENCOUNTER 2022-12-21 17:36 | Inpatient (IN) | payer MEDICARE, SELFPAY ==
[2022-12-21] VITALS (14 sets, daily range): BP systolic 101–131; BP diastolic 52–80; PULSE 75–95; RESP 16–19; TEMP 36–37.4; O2SAT 93–97; BMI 25.9; BMI 25.3
--- NOTE | 2022-12-21 17:38 | NURSING ---
[id number] STROKE ALERT CALLED PRIOR TO ARRIVAL
--- NOTE | 2022-12-21 17:41 | ED.RN ---
PER DR. BUTTS SEND PT TO CT BUT DO NOT NEED TO CONSULT [facility] AT THIS TIME.
--- NOTE | 2022-12-21 17:42 | EKG12_ITS ---
Test Reason : NEURO S/SX Blood Pressure : / mmHG Vent. Rate : 094 BPM Atrial Rate : 094 BPM P-R Int : 148 ms QRS Dur : 070 ms QT Int : 364 ms P-R-T Axes : 057 -01 177 degrees QTc Int : 455 ms Normal sinus rhythm Nonspecific ST and T wave abnormality Abnormal ECG Confirmed by WISAM LEIGH, COLIN ([id number]), newspaper photo editor BREA OLEARY ([id number]) on 12/24/2022 10:48:24 AM Referred By: Confirmed By:COLIN JOEL MD
--- NOTE | 2022-12-21 17:42 | CT_ITS ---
We are attempting to reach an attending provider to discuss findings. An addendum with communication details will be sent when the communication is complete. INDICATION: Neuro deficit, acute, stroke suspected EXAMINATION: CT BRAIN - CT Head Stroke Protocol W/O Contrast Injection TECHNIQUE: Multiple axial images were obtained of the head without intravenous contrast. A radiation dose optimization technique was used for this scan. IV Contrast dosage and agent: None. COMPARISON: 05/24/2022. FINDINGS: BRAIN PARENCHYMA: No intra- or extra-axial hemorrhage. No evidence of acute infarct. No intracranial mass or mass effect. There is decreased attenuation within the deep white matter compatible with microangiopathic white matter disease. Posterior fossa structures are unremarkable. CSF SPACES: Mild generalized brain atrophy. No hydrocephalus. Basal cisterns are patent. CALVARIUM, SKULL BASE, PARANASAL SINUSES AND MASTOID AIR CELLS: Clear. No discrete lytic or blastic abnormalities. ORBITS: Both globes, extraocular muscles, optic nerves and retrobulbar fat appear unremarkable. CT/STROKE Brain/Head without Cont IMPRESSION: Chronic changes as described. No acute intracranial hemorrhage or space-occupying lesion. Electronically Signed: Lisa Christianson MD at 17:57 EDT ,
[2022-12-21 17:53] LABS: Absolute Lymphocyte Count 2.03 X10^3/uL (0.83-4.51); Basophil# 0.05 X10^3/uL; Basophil% 0.3 % (0-1); Eosinophil# 0.02 X10^3/uL; Eosinophils% 0.1 % (0-5); Hematocrit 35.8 % (37-47); Hemoglobin 11.6 g/dL (12.0-15.0); Lymphocyte # 2.03 X10^3/ul (0.83-4.51); Lymphocyte % 13.3 % (19-41); Mean Corp Hgb Conc 32.4 g/dL (32-36); Mean Corpuscular Hgb 29.7 pg (27.0-32.0); Mean Corpuscular Volume 91.8 fL (81-99); Monocyte# 1.08 X10^3/uL; Monocyte% 7.1 % (0-10); NRBC Flagged by Analyzer 0 % (0-5); Neutrophil # 11.95 X10^3/uL (2.7-7.7); Neutrophil % 78.5 % (47-70); Platelet Count 345 K/mm3 (150-450); RBC Distribution Width CV 15.2 % (11.6-14.6); RBC Distribution Width SD 51.2 fl (35.1-43.9); White Blood Count 15.2 K/mm3 (4.4-11.0)
[2022-12-21 17:58] LABS: International Normalized Ratio 1.2; Prothrombin Time (Protime)PT. 14.9 SECONDS (11.7-14.9)
[2022-12-21 17:59] LABS: Partial Thromboplast Time 32.7 Seconds (24.1-36.2)
--- NOTE | 2022-12-21 17:59 | EDS_ITS ---
HPI History of Present Illness Chief Complaint: Neuro S/Sx Informant: patient and EMS Narrative Narrative: 77-year-old female arriving to the emergency department as a prehospital stroke alert. The patient reportedly has underlying Parkinson's. She was found by her to be half on the commode. EMS notes that she did not seem to be moving the left side of her body. She has had prior TIAs. Patient currently denies any pain. EMS notes that she has been incontinent of stool with her depends. notes that a couple weeks ago she was at her primary care doctor's office and had a low-grade fever. She took an unknown antibiotic but states he does not believe she ever got over it. She states that today she was doing well but just suddenly became globally weak particularly in the legs. Earlier this year she was admitted with UTI/sepsis. She underwent ureteral stent placement for hydronephrosis. She subsequently followed up with Dr. Garcia had the stent removed and has been doing well since. [facility] Medical History Back pain Benign essential hypertension Bladder disease Depression Diabetes Former smoker Generalized anxiety disorder GERD (gastroesophageal reflux disease) High cholesterol History of heart attack HLD (hyperlipidemia) Hydroureteronephrosis Hypertension Kidney stone Parkinson's disease Post-menopausal Thyroid disease TIA (transient ischemic attack) Type II diabetes mellitus Walker as ambulation aid Wears dentures Home Medications levothyroxine 50 mcg tablet 50 mcg PO DAILY 08/20/19 [History Last Taken Unknown] lorazepam 0.5 mg tablet 0.5 mg PO QHS 08/20/19 [History Last Taken Unknown] metformin 1,000 mg tablet 500 mg PO BID 08/20/19 [History Last Taken Unknown] metoprolol tartrate 25 mg tablet 25 mg PO BID 08/20/19 [History Last Taken Unknown] simvastatin 20 mg tablet 20 mg PO QHS 08/20/19 [History Last Taken Unknown] aspirin 81 mg tablet 81 mg PO DAILY 05/24/22 [History Last Taken 09/06/22] carbidopa 25 mg-levodopa 100 mg tablet 1.5 tab PO TID 05/24/22 [History Last Taken Unknown] glipizide 2.5 mg tablet, extended release 24 hr 2.5 mg PO DAILY 05/24/22 [History Last Taken Unknown] memantine 10 mg tablet 10 mg PO BID 05/24/22 [History Last Taken Unknown] risperidone 0.5 mg tablet 0.5 mg PO BID 05/24/22 [History Last Taken Unknown] solifenacin 5 mg tablet 5 mg PO DAILY 05/24/22 [History Last Taken Unknown] Allergy/AdvReac Type Severity Reaction Status Date / Time No Known Allergies Allergy Verified 12/21/22 17:38 Family History Mother Heart disease Hypertension Father No problems noted. Surgical History History of cystoscopy History of ureteroscopy Hx of CABG Social History household members: spouse housing: house Smoking Status: Former smoker alcohol intake: never substance use type: does not use ROS ROS ED Constitutional Constitutional ED: Denies chills, fever(s) or weight loss Eyes Eyes: Reports blurry vision; Denies change in vision or diplopia ENT ENT ED: Denies ear pain, rhinorrhea or sore throat Cardiovascular Cardiovascular: Denies chest pain, orthopnea, palpitations or racing heartbeat Respiratory/Chest Respiratory/Chest: Denies cough, dyspnea or orthopnea Gastrointestinal Gastrointestinal: Denies abdominal pain, diarrhea, nausea or vomiting Genitourinary Genitourinary ED: Denies dysuria, hematuria or urinary frequency Musculoskeletal Musculoskeletal: Denies arthralgias or myalgias Integumentary Denies abscess or rash Neurologic Neurologic: Denies headache(s) or weakness Psychiatric Psychiatric: Denies anxiety, depression, suicidal ideation or suicidal thoughts Endocrine Endocrinology: Denies polydipsia, polyphagia or polyuria Allergic/Immunologic Allergic/Immunologic ED: Denies mouth swelling, tongue swelling or urticaria EXAM Physical Exam Const Vital Signs: 12/21/22 17:42 12/21/22 17:53 12/21/22 18:37 Temperature 99.2 F H 99.4 F H Temperature Source Oral Oral Pulse Rate 95 89 Respiratory Rate 18 18 Blood Pressure 131/66 H 117/80 Blood Pressure Mean 87 92 Pulse Ox 93 94 Oxygen Delivery Method Room Air Room Air 12/21/22 19:00 12/21/22 18:52 Temperature 99 F Temperature Source Oral Pulse Rate 85 90 Respiratory Rate 19 H 18 Blood Pressure 109/72 116/61 Blood Pressure Mean 84 79 Pulse Ox 93 94 Oxygen Delivery Method Room Air Room Air Positive well nourished and well developed General Appearance ED: well developed HEENT Reports normocephalic, head/scalp atraumatic and moist mucous membranes Eyes PERRL and EOMs intact bilaterally Neck no lymphadenopathy, supple and no JVD Resp normal respiratory effort and clear to auscultation bilaterally Cardio regular rate, regular rhythm and no murmurs GI normal to inspection, nondistended, normoactive bowel sounds and non-tender Palpation: soft Back/Spine no CVA tenderness and normal ROM Extremity normal to inspection General Extremety ED: Negative for edema General Extremity: Negative for edema Neuro CN's II-XII intact bilaterally Neuro Narrative: Patient has a chronic tremor associated with her Parkinson's. I score her an NIH is 0. She is disoriented to time but she could tell me that she is at the hospital and she knows her name. Sensorium / Orientation: alert and orientation impaired Sensory Exam: No sensory level loss detected Motor Exam: strength 5/5 throughout Psych mental status grossly normal Mood & Affect: Negative for depressed or tearful Skin no rashes or lesions noted Sepsis Attestation Sepsis Alert: Yes Sepsis Attestation: Agree w/Sepsis Date exam was performed: 12/21/22 Time exam was performed: 17:46 Possible Source of Sepsis: Genitourinary Sepsis Organ Dysfunction Criteria Present: Lactic Acid > 2 mmol/L, Serum CO2 < 20 mmol/L (on BMP) and New/Unexplained change in mental status MDM MDM MDM Narrative Medical decision making narrative: My interpretation of the chest x-ray is no acute process CT the brain was negative for hemorrhage. Clinically she has an NIH is 0. White count returns at 15.2. Lactic acid is 4.1. Creatinine 1.76 with a BUN of 43. CO2 of 16. Urinalysis + nitrates greater than 100 white blood cells 0 bacteria seen. The patient was given IV fluids as well as Tylenol. I reviewed her prior urine cultures and she received Rocephin and IV fluids. She has remained hemodynamically stable. Plan is admission into the hospital. Blood cultures are pending. Urine culture pending. Hospitalist history rested and ABG History & Record Review Discussion w/independent historian: EMS personnel, Patient and Significant other Lab Data Attestation: I reviewed the patient's lab results. Labs: Laboratory Results - last 24 hr 12/21/22 12/21/22 12/21/22 17:28 18:01 18:34 WBC 15.2 H RBC 3.90 L Hgb 11.6 L Hct 35.8 L MCV 91.8 MCH 29.7 MCHC 32.4 RDW Std Deviation 51.2 H RDW Coeff of Festus 15.2 H Plt Count 345 MPV 10.0 Immature Gran % (Auto) 0.700 Neut % (Auto) 78.5 H Lymph % (Auto) 13.3 L [place] % (Auto) 7.1 Eos % (Auto) 0.1 Baso % (Auto) 0.3 Absolute Neuts (auto) 12.0 H Absolute Lymphs (auto) 2.03 Nucleated RBC % 0 PT 14.9 INR 1.2 APTT 32.7 Sodium 135 L Potassium 4.5 Chloride 105 Carbon Dioxide 16.0 L Anion Gap 14 BUN 43 H Creatinine 1.76 H Estim Creat Clear Calc 20.52 Est GFR (MDRD) Af Amer 36 L Est GFR (MDRD) Non-Af 30 L BUN/Creatinine Ratio 24.4 H Glucose 271 H Lactic Acid 4.1 H* Calcium 9.4 Total Bilirubin 0.80 Direct Bilirubin 0.23 AST 9 L ALT < 6 L Alkaline Phosphatase 87 Troponin I High Sens 4 Total Protein 8.1 Albumin 3.2 Globulin 4.9 H Urine Color Yellow Urine Clarity Turbid Urine pH 5.0 Ur Specific [place] 1.015 Urine Protein 100 H Urine Glucose (UA) Normal Urine Ketones Negative Urine Occult Blood 250 H Urine Nitrite Positive H Urine Bilirubin Negative Urine Urobilinogen Normal Ur Leukocyte Esterase 500 H Urine RBC 0 SEEN Urine WBC >100 SEEN Ur Squamous Epith Cells 0 SEEN Urine Bacteria 0 SEEN Urine Mucus 0 SEEN Radiography Diagnostic Testing: Clinical Impression(s) from Imaging Studies Brain CT 12/21/22 17:42 IMPRESSION: Chronic changes as described. No acute intracranial hemorrhage or space-occupying lesion. Electronically Signed: Lisa Christianson MD at 17:57 EDT , ADDENDUM: 12/21/22 1806 IMPRESSION: Chronic changes as described. No acute intracranial hemorrhage or space-occupying lesion. N.B. : The above Results were Read Back by Lisa Christianson MD to Ge Nogueira,, , and understanding confirmed on 12/21/2022 17:59:46 (ET). Electronically Signed: Lisa Christianson MD at 17:57 EDT , Chest X-Ray 12/21/22 18:03 IMPRESSION: No acute cardiopulmonary disease. Electronically Signed: Lisa Christianson MD at 19:00 EDT , EKG Initial EKG: Attestation: I personally reviewed and interpreted this EKG as follows: Comments: Normal sinus rhythm ventricular rate of 94 bpm. No concerning features of ACS noted Prior EKG tracings: available for review Prior: Unchanged Management Discussion w/another healthcare provider: Hospitalist Discharge Plan Dx/Rx/DC Orders Clinical Impression: Sepsis, Acute UTI, Altered mental state, Parkinson's disease Disposition Disposition: Acute Care [facility]
--- NOTE | 2022-12-21 18:03 | RAD_ITS ---
STUDY: X-RAY CHEST REASON FOR EXAM: Female, 77 years old. Neuro deficit, acute, stroke suspected TECHNIQUE: Single AP portable view of the chest. COMPARISON: 05/24/2022. FINDINGS: The lungs are underexpanded with mild vascular crowding, otherwise clear. There is no demonstrated pleural abnormality. Normal size heart. Midline sternotomy wires. Otherwise normal mediastinum and mercy. Normal visualized pulmonary arteries. There is atherosclerotic calcification of the aortic arch with tortuosity. There are diffuse degenerative changes of the visualized thoracic spine. Normal visualized ribs, clavicles, and shoulders. There is no demonstrated abnormality of the visualized soft tissue structures of the upper abdomen. RAD/Chest 1 View IMPRESSION: No acute cardiopulmonary disease. Electronically Signed: Lisa Christianson MD at 19:00 EDT ,
[2022-12-21 18:08] LABS: Anion Gap 14 (5-15); BUN 43 mg/dL (7-18); BUN/Creat Ratio 24.4 RATIO (10-20); Calcium,Total 9.4 mg/dL (8.5-10.1); Chloride 105 mmol/L (98-107); Creatinine, Serum 1.76 mg/dL (0.55-1.02); EST Glomerular Filtration Rate 30 mL/min (>60); Est Glom Filt Rate - Afr Amer 36 mL/min (>60); Estimated Creatinine Clearance 20.52 ml/min; Glucose 271 mg/dL (74-106); Potassium 4.5 mmol/L (3.5-5.1); Sodium Level 135 mmol/L (136-145); Troponin-I HS 4 pg/mL (3.0-54.0)
[2022-12-21 18:17] LABS: Bacteria 0 SEEN /hpf (None Seen); Mucous, Urine 0 SEEN /hpf (<or=2+); Red Blood Cells-Urine 0 SEEN /hpf (0-5); Squamous Epithelial Cells - UA 0 SEEN /hpf (5-10)
[2022-12-21 18:27] LABS: Color, Urine Yellow (Yellow); Glucose, Dipstick Normal (Normal); Ketone-Dipstick Negative (Negative); Leukocyte Esterase-Dipstick 500 /ul (Negative); Nitrite-Dipstick Positive (Negative); Occult Blood-Urine 250 /ul (Negative); Protein-Dipstick 100 mg/dl (Negative); Specific Gravity, Urine 1.015 (1.002-1.030); Urine Bilirubin Dipstick Negative (Negative); Urine Clarity Turbid (Clear); Urine Urobilinogen Normal (Normal)
[2022-12-21] MEDS: Acetaminophen 325 MG Tablet 650 MG PO (18:37)
[2022-12-21] MEDS: 0.9% Normal Saline 1,000 ML 999 ML IV ×2 (18:37→20:02)
[2022-12-21 18:38] LABS: AST(SGOT) 9 U/L (15-37); Alanine Aminotransfer ALT/SGPT < 6 U/L (13-56); Albumin, Serum 3.2 g/dL (3.2-5.0); Alkaline Phosphatase 87 U/L (45-117); Bilirubin, Direct 0.23 mg/dL (0.00-0.30); Globulin 4.9 g/dL (2.2-4.2); Protein, Total 8.1 g/dL (6.4-8.2)
--- NOTE | 2022-12-21 18:39 | ED.RN ---
per Dr. Jero harrison to stop NIH's.
[2022-12-21 18:47] LABS: White Blood Cells >100 SEEN /hpf (0-5)
[2022-12-21 19:10] LABS: Lactic Acid 4.1 mmol/L (0.4-1.9)
--- NOTE | 2022-12-21 19:17 | HP.PCM.HOS_ITS ---
HPI - General General Date of Admission: 12/21/22 Date of Service: 12/21/22 Chief Complaint: Weakness HPI Narrative LOYDA GARCIA, is a 77 F with a significant history of diabetes mellitus; Parkinson disease; hypertension; and dementia who presents emergency department with weakness. Reports was taken from emergency department doctor and patient's who was at the bedside since patient is not a good historian likely secondary to dementia. On the day of presentation patient felt very weak and pale patient lost all her strength that it was difficult for patient to go to the bathroom. However patient was eventually able to go to the bathroom and sat on the bedside commode. However it was difficult to get up patient for the bedside commode and she was almost slumping over also patient's called the paramedics who brought patient to the emergency department. Prehospitalization stroke alert was called because paramedics notes that patient was having some unilateral weakness. However upon examination at the emergency department patient's NIH was 0. Patient was seen earlier this year by Dr. Ramirez urology for hydronephrosis for which a stent was placed.. However the stent was removed by Dr.. Garcia, urology and her kidneys were clean from debris. Reported about 3 weeks ago patient had low-grade fever and was given antibiotics by her PCP. [facility] Medical History Back pain Benign essential hypertension Bladder disease Depression Diabetes Former smoker Generalized anxiety disorder GERD (gastroesophageal reflux disease) High cholesterol History of heart attack HLD (hyperlipidemia) Hydroureteronephrosis Hypertension Kidney stone Parkinson's disease Post-menopausal Thyroid disease TIA (transient ischemic attack) Type II diabetes mellitus Walker as ambulation aid Wears dentures Home Medications levothyroxine 50 mcg tablet 50 mcg PO DAILY 08/20/19 [History Last Taken Unknown] lorazepam 0.5 mg tablet 0.5 mg PO QHS 08/20/19 [History Last Taken Unknown] metformin 1,000 mg tablet 500 mg PO BID 08/20/19 [History Last Taken Unknown] metoprolol tartrate 25 mg tablet 25 mg PO BID 08/20/19 [History Last Taken Unknown] simvastatin 20 mg tablet 20 mg PO QHS 08/20/19 [History Last Taken Unknown] aspirin 81 mg tablet 81 mg PO DAILY 05/24/22 [History Last Taken 09/06/22] carbidopa 25 mg-levodopa 100 mg tablet 1.5 tab PO TID 05/24/22 [History Last Taken Unknown] glipizide 2.5 mg tablet, extended release 24 hr 2.5 mg PO DAILY 05/24/22 [His tory Last Taken Unknown] memantine 10 mg tablet 10 mg PO BID 05/24/22 [History Last Taken Unknown] risperidone 0.5 mg tablet 0.5 mg PO BID 05/24/22 [History Last Taken Unknown] solifenacin 5 mg tablet 5 mg PO DAILY 05/24/22 [History Last Taken Unknown] Allergy/AdvReac Type Severity Reaction Status Date / Time No Known Allergies Allergy Verified 12/21/22 17:38 Family History Mother Heart disease Hypertension Father No problems noted. Surgical History History of cystoscopy History of ureteroscopy Hx of CABG Social History household members: spouse housing: house Smoking Status: Former smoker alcohol intake: never substance use type: does not use ROS Review of Systems ROS Unobtainable: other Details: Pertinent positives and pertinent negatives that could be provided by patient's family is as noted in HPI. All other systems were reviewed patient's family did not know or they were negative. Vital Signs Vital Signs Vital Signs: 12/21/22 17:42 12/21/22 17:53 Temperature 99.2 F H 99.4 F H Temperature Source Oral Oral Pulse Rate 95 Respiratory Rate 18 Blood Pressure 131/66 H Blood Pressure Mean 87 Pulse Ox 93 Oxygen Delivery Method Room Air Weight Weight: 62.2 kg Body Mass Index (BMI) 25.9 Physical Exam Narrative Physical exam: General: Well-nourished, well-developed. Head: Normocephalic, atraumatic, no tenderness Eyes: Vision is grossly intact. EOMI ENT, no trauma, moist mucous membranes, no rhinorrhea Neck: Nontender, No thyromegaly. CVS: Regular rate and rhythm. S1-S2 present. No murmur, gallop or rub. Respiratory : clear to auscultation bilaterally, chest wall nontender Abdomen: Soft, nontender, nondistended, normal bowel sounds, no masses : Deferred Back: Nontender, no CVA tenderness. Extremities: Unable to lean forward by herself. Skin: Normal color, no trauma, abrasions Neuro: Alert. Patient knows that she is at the hospital. She knows the year. But does not know the month or the day. Tremors of the left hand. Psychiatry: Normal mood. Normal affect. Not depressed. Not anxious. Results Lab / Micro Data 12/21/22 17:28 12/21/22 17:28 Labs: Laboratory Results - last 24 hr 12/21/22 17:28: WBC 15.2 H, RBC 3.90 L, Hgb 11.6 L, Hct 35.8 L, MCV 91.8, MCH 29.7, MCHC 32.4, RDW Std Deviation 51.2 H, RDW Coeff of Festus 15.2 H, Plt Count 345, MPV 10.0, Immature Gran % (Auto) 0.700, Neut % (Auto) 78.5 H, Lymph % (Auto) 13.3 L, [place] % (Auto) 7.1, Eos % (Auto) 0.1, Baso % (Auto) 0.3, Absolute Neuts (auto) 12.0 H, Absolute Lymphs (auto) 2.03, Nucleated RBC % 0, PT 14.9, INR 1.2, APTT 32.7, Sodium 135 L, Potassium 4.5, Chloride 105, Carbon Dioxide 16.0 L, Anion Gap 14, BUN 43 H, Creatinine 1.76 H, Estim Creat Clear Calc 20.52, Est GFR (MDRD) Af Amer 36 L, Est GFR (MDRD) Non-Af 30 L, BUN/Creatinine Ratio 24.4 H, Glucose 271 H, Calcium 9.4, Total Bilirubin 0.80, Direct Bilirubin 0.23, AST 9 L, ALT < 6 L, Alkaline Phosphatase 87, Troponin I High Sens 4, Total Protein 8.1, Albumin 3.2, Globulin 4.9 H 12/21/22 18:01: Urine Color Yellow, Urine Clarity Turbid, Urine pH 5.0, Ur Sp ecific [place] 1.015, Urine Protein 100 H, Urine Glucose (UA) Normal, Urine K etones Negative, Urine Occult Blood 250 H, Urine Nitrite Positive H, Urine Bilirubin Negative, Urine Urobilinogen Normal, Ur Leukocyte Esterase 500 H, Urine RBC 0 SEEN, Urine WBC >100 SEEN, Ur Squamous Epith Cells 0 SEEN, Urine Laisha teria 0 SEEN, Urine Mucus 0 SEEN 12/21/22 18:34: Lactic Acid 4.1 H* Radiology Impression Brain CT 12/21/22 17:42 IMPRESSION: Chronic changes as described. No acute intracranial hemorrhage or space-occupying lesion. Electronically Signed: Lisa Christianson MD at 17:57 EDT Reading Location ID and State: [email or web address] [facility] [employer] , Service support , ADDENDUM: 12/21/22 1806 IMPRESSION: Chronic changes as described. No acute intracranial hemorrhage or space-occupying lesion. N.B. : The above Results were Read Back by Lisa Christianson MD to Ge Nogueira,DO, and understanding confirmed on 12/21/2022 17:59:46 (ET). Electronically Signed: Lisa Christianson MD at 17:57 EDT Reading Location ID and State: [email or web address] [facility] [employer] , Service support , Chest X-Ray 12/21/22 18:03 IMPRESSION: No acute cardiopulmonary disease. Electronically Signed: Lisa Christianson MD at 19:00 EDT Reading Location ID and State: [email or web address] [facility] [employer] , Service support , Assessment & Plan Assessment/Plan (1) Acute UTI: PLAN: Plan Acute cystitis Diagnosis sepsis at the emergency department. However patient does not meet at least 2 SIRS criteria. The only criteria she meets is leukocytosis as her white count is 15,200. Her heart rate is not more than 90 and respiratory rate is not more than 20. She does not have a high-grade fever. Tmax is 99.4. Discussed with ED doctor to obtain ABG so we see whether her pCO2 is less than 32 and by which she would have had 2 SIRS criteria and can be diagnosed of sepsis.. However she has evidence of organ dysfunction. She has lactic acid of 4.1. Although metformin could contribute to her lactic acidosis; she is on only low- dose of metformin of 500 mg twice daily and I doubt whether it is contributing to all her lactic acidosis of 4.1. She has a mild YAMILEX. At this time will rule sepsis out. But will check ABG for a PCO2 and if PCO2 is less than 32 will re-classify as sepsis. Received ceftriaxone emergency department and will continue. Will trend lactic acid. Also acute CVA as rule out at this time. However will let physical therapy evaluate the patient. The patient has some left facial droop but may be chronic. After interpretation of head CT by radiology the patient has chronic changes. No acute intracranial hemorrhage or space-occupying lesion seen. CT head was independently interpreted and I agree with radiology interpretation. Urinalysis at the ED was reviewed. Urinalysis with proteinuria; urine occult blood; urine nitrite was positive; urine leukocyte esterase was positive at 500. Urine white count was handwritten but of note the patient had no bacteria. Urine leukocyte esterase was 0. Blood culture and urine culture was appropriately ordered emergency department, follow. History of hypertension Blood pressure is soft. Hold home metoprolol. Received normal saline bolus at the emergency department. Trend blood pressure and adjust blood pressure medications. Diabetes mellitus Patient with hyperglycemia on presentation Blood pressure continue. Home metformin held. Monitor Accu-Cheks Correction scale insulin ordered. Acute on CKD stage IIIb YAMILEX on chronic kidney disease stage III CKD Likely from Diabetic nephropathy Baseline creatinine of about 1.4. Creatinine presentation was 1.76. Beta-Lia creatinine is 24.4. IV hydration as above. Avoid nephrotoxic's. DVT prophylaxis: Subcutaneous heparin ordered Time spent in the patient's overall evaluation,decision-making process, review of diagnostic data, adjustment of management, discussion with other providers, nursing nursing and ancillary staff involved in patient's care documentation, 70 minutes. Charges/Coding Visit Charges Inpatient E&M: 73963 Init Hosp L3
[2022-12-21] MEDS: Ceftriaxone 1 GM/50 ML BAG IV (19:26)
[2022-12-21 20:02] LABS: Allen Test Positive; Base Excess -5 mmol/L (-2 to +2); Bicarbonate 19.5 mmol/L (22-26); Blood Gas Specimen Type ART; O2 Delivery Device Room Air; PO2 77 mmHG (75-100); SITE R Radial; SO2 96 % (95-99); Total Carbon Dioxide 21 mmol/L; pCO2 30.9 mmHg (35-45); pH 7.41 (7.35-7.45)
--- NOTE | 2022-12-21 20:15 | SEPSISATNOTE ---
Sepsis Attestation Sepsis Alert: Yes Sepsis Attestation: Agree w/Sepsis Date exam was performed: 12/21/22 Time exam was performed: 20:15 Possible Source of Sepsis: Genitourinary Sepsis Organ Dysfunction Criteria Present: Lactic Acid > 2 mmol/L Fluid Resuscitation Fluid resuscitation indicated?: Yes Fluid Resuscitation ordered: 30 ml/kg fluid bolus ordered
[2022-12-21] MEDS: 0.9% Normal Saline 1,000 ML 75 ML IV (22:24)
[2022-12-21 22:38] LABS: Reflex Lactate? Y
[2022-12-21] MEDS: Heparin Injection (Vial) 5,000 UNIT/ML VIAL 5000 UNIT SC (22:55)
[2022-12-21] MEDS: Memantine Hydrochloride 10 MG Tablet PO (22:55)
[2022-12-21] MEDS: Insulin Lispro 100 UNIT/ML INSULN.PEN SC (22:55)
[2022-12-21] MEDS: RisperiDONE 0.5 MG Tablet PO (22:55)
[2022-12-21] MEDS: Atorvastatin Calcium 10 MG Tablet PO (22:55)
[2022-12-21] MEDS: LORazepam 0.5 MG Tablet PO (22:55)
[2022-12-21] MEDS: 0.9% Saline Lock 10 ML Syringe IV (22:56)
[2022-12-21 23:34] LABS: Bedside Glucose 154 mg/dL (74-106)
[2022-12-21 23:35] LABS: Lactic Acid 3.3 mmol/L (0.4-1.9)
[2022-12-22] VITALS: BP 114/62; PULSE 83; RESP 16; TEMP 36.7; O2SAT 97
[2022-12-22 04:02] VITALS: BP 128/61; PULSE 92; RESP 17; TEMP 37.3; O2SAT 98
[2022-12-22 04:17] VITALS: BMI 25.3
[2022-12-22 05:15] LABS: Absolute Lymphocyte Count 0.89 X10^3/uL (0.83-4.51); Absolute Neutrophil Count 6.8 X10^3/uL (2.0-7.7); Basophil# 0.02 X10^3/uL; Basophil% 0.2 % (0-1); Eosinophil# 0.04 X10^3/uL; Eosinophils% 0.5 % (0-5); Hematocrit 29.9 % (37-47); Hemoglobin 9.8 g/dL (12.0-15.0); Lymphocyte # 0.89 X10^3/ul (0.83-4.51); Lymphocyte % 10.3 % (19-41); Mean Corp Hgb Conc 32.8 g/dL (32-36); Mean Corpuscular Hgb 29.6 pg (27.0-32.0); Mean Corpuscular Volume 90.3 fL (81-99); Mean Platelet Vol. 9.8 fl (6.2-12.0); Monocyte# 0.93 X10^3/uL; Monocyte% 10.7 % (0-10); NRBC Flagged by Analyzer 0 % (0-5); Neutrophil # 6.76 X10^3/uL (2.7-7.7); Platelet Count 226 K/mm3 (150-450); RBC Distribution Width CV 15.1 % (11.6-14.6); RBC Distribution Width SD 50.4 fl (35.1-43.9); Red Blood Count 3.31 M/mm3 (4.2-5.4); White Blood Count 8.7 K/mm3 (4.4-11.0)
[2022-12-22 05:34] LABS: Anion Gap 7 (5-15); BUN 30 mg/dL (7-18); BUN/Creat Ratio 26.3 RATIO (10-20); Calcium,Total 8.1 mg/dL (8.5-10.1); Chloride 112 mmol/L (98-107); Creatinine, Serum 1.14 mg/dL (0.55-1.02); EST Glomerular Filtration Rate 49 mL/min (>60); Est Glom Filt Rate - Afr Amer 60 mL/min (>60); Estimated Creatinine Clearance 31.68 ml/min; Glucose 124 mg/dL (74-106); Potassium 3.8 mmol/L (3.5-5.1); Sodium Level 141 mmol/L (136-145)
[2022-12-22 06:00] VITALS: BP 120/58; PULSE 90; RESP 17; TEMP 37.4; O2SAT 97
[2022-12-22] MEDS: Carbidopa/Levodopa 25/100 Tablet PO ×3 (06:22→16:29)
[2022-12-22] MEDS: Levothyroxine 50 MCG Tablet PO (06:22)
[2022-12-22 07:06] LABS: Bedside Glucose 124 mg/dL (74-106)
[2022-12-22 09:45] VITALS: BP 124/61; PULSE 102; RESP 18; TEMP 37; O2SAT 98
[2022-12-22] MEDS: Ceftriaxone 1 GM/50 ML BAG IV ×2 (09:52→20:48)
[2022-12-22] MEDS: Menthol/Lanolin/Calamine/Znox 113 GM Tube 1 APPLIC TOPICAL ×2 (09:52→20:30)
[2022-12-22] MEDS: 0.9% Normal Saline 1,000 ML 75 ML IV (09:52)
[2022-12-22] MEDS: RisperiDONE 0.5 MG Tablet PO ×2 (09:57→20:45)
[2022-12-22] MEDS: Aspirin 81 MG TAB.CHEW PO (09:57)
[2022-12-22] MEDS: Tolterodine Tartrate 2 MG CAP.SA PO (09:57)
[2022-12-22] MEDS: Memantine Hydrochloride 10 MG Tablet PO ×2 (09:57→20:45)
[2022-12-22] MEDS: Heparin Injection (Vial) 5,000 UNIT/ML VIAL 5000 UNIT SC (09:57)
[2022-12-22] MEDS: glipiZIDE 2.5 MG TAB.ER.24 PO (10:47)
[2022-12-22] MEDS: Insulin Lispro 100 UNIT/ML INSULN.PEN SC ×3 (11:23→20:45)
[2022-12-22 12:16] LABS: Bedside Glucose 232 mg/dL (74-106)
[2022-12-22] MEDS: Glucerna Shake 120 ML LIQUID PO ×2 (13:44→16:30)
[2022-12-22 15:24] VITALS: BP 109/62; PULSE 92; RESP 18; TEMP 36.9; O2SAT 96
--- NOTE | 2022-12-22 17:41 | PN.HOSP_ITS ---
Reason for Visit Reason for Visit: Diagnoses Urinary tract infection, site not specified (12/21/22) Subjective Subjective Patient seen at bedside this morning. Sitting comfortably in bed, no acute distress. Patient appears weak and fatigued, but was answering most of my questions appropriately. She denied any acute pain or discomfort. Denied any pain with urination. Denied any fevers or chills. She has not tried to get out of bed yet this morning. No other acute concerns. Objective Data Objective Data Vital Signs: Vital Signs Temp Pulse Resp BP Pulse Ox O2 Del Method 98.5 F 92 18 109/62 96 Room Air 12/22/22 15:24 12/22/22 15:24 12/22/22 15:24 12/22/22 15:24 12/22/22 15:24 12/22/22 15:24 Oxygen Delivery Method Room Air Weight: 60.9 kg Body Mass Index (BMI) 25.3 Intake & Output: Intake and Output for Last 24 Hours 12/20/22 12/21/22 12/22/22 23:59 23:59 23:59 Intake Total 2270 / 2270 1737.5 / 1737.5 Output Total 150 / 150 700 / 700 Balance 2120 / 2120 1037.5 / 1037.5 Lab / Micro Data 12/22/22 04:35 12/22/22 04:35 Labs: Laboratory Results - last 24 hr 12/21/22 17:28: WBC 15.2 H, RBC 3.90 L, Hgb 11.6 L, Hct 35.8 L, MCV 91.8, MCH 29.7, MCHC 32.4, RDW Std Deviation 51.2 H, RDW Coeff of Festus 15.2 H, Plt Count 345, MPV 10.0, Immature Gran % (Auto) 0.700, Neut % (Auto) 78.5 H, Lymph % (Auto) 13.3 L, Tucker % (Auto) 7.1, Eos % (Auto) 0.1, Baso % (Auto) 0.3, Absolute Neuts (auto) 12.0 H, Absolute Lymphs (auto) 2.03, Nucleated RBC % 0, PT 14.9, INR 1.2, APTT 32.7, Sodium 135 L, Potassium 4.5, Chloride 105, Carbon Dioxide 16.0 L, Anion Gap 14, BUN 43 H, Creatinine 1.76 H, Estim Creat Clear Calc 20.52, Est GFR (MDRD) Af Amer 36 L, Est GFR (MDRD) Non-Af 30 L, BUN/Creatinine Ratio 24.4 H, Glucose 271 H, Calcium 9.4, Total Bilirubin 0.80, Direct Bilirubin 0.23, AST 9 L, ALT < 6 L, Alkaline Phosphatase 87, Troponin I High Sens 4, Total Protein 8.1, Albumin 3.2, Globulin 4.9 H 12/21/22 18:01: Urine Color Yellow, Urine Clarity Turbid, Urine pH 5.0, Ur Specific [place] 1.015, Urine Protein 100 H, Urine Glucose (UA) Normal, Urine Ketones Negative, Urine Occult Blood 250 H, Urine Nitrite Positive H, Urine Bilirubin Negative, Urine Urobilinogen Normal, Ur Leukocyte Esterase 500 H, Urine RBC 0 SEEN, Urine WBC >100 SEEN, Ur Squamous Epith Cells 0 SEEN, Urine Bacteria 0 SEEN, Urine Mucus 0 SEEN 12/21/22 18:34: Lactic Acid 4.1 H* 12/21/22 21:33: POC Glucose 154 H 12/21/22 22:54: Lactic Acid 3.3 H* 12/22/22 04:35: WBC 8.7, RBC 3.31 L, Hgb 9.8 L, Hct 29.9 L, MCV 90.3, MCH 29.6, MCHC 32.8, RDW Std Deviation 50.4 H, RDW Coeff of Festus 15.1 H, Plt Count 226, MPV 9.8, Immature Gran % (Auto) 0.300, Neut % (Auto) 78.0 H, Lymph % (Auto) 10.3 L, Tucker % (Auto) 10.7 H, Eos % (Auto) 0.5, Baso % (Auto) 0.2, Absolute Neuts (auto) 6.8, Absolute Lymphs (auto) 0.89, Nucleated RBC % 0, Sodium 141, Potassium 3.8, Chloride 112 H, Carbon Dioxide 22.0, Anion Gap 7, BUN 30 H, Creatinine 1.14 H, Estim Creat Clear Calc 31.68, Est GFR (MDRD) Af Amer 60, Est GFR (MDRD) Non-Af 49 L, BUN/Creatinine Ratio 26.3 H, Glucose 124 H, Calcium 8.1 L 12/22/22 06:14: POC Glucose 124 H 12/22/22 11:22: POC Glucose 232 H Micro: Microbiology 12/21/22 18:01 Urine, Catheterized Urine Culture - Preliminary Presumptive E. coli ABG Data ABG results: ABG 12/21/22 19:58 Specimen Type ART Sample Site R Radial pH 7.41 Bicarbonate Actual 19.5 L Total CO2 21 Base Excess -5 L O2 Saturation 96 ABG pCO2 30.9 L ABG pO2 77 Dimitris Test Positive O2 Delivery Device Room Air Radiography Diagnostic Testing: Radiology Impression Brain CT 12/21/22 17:42 IMPRESSION: Chronic changes as described. No acute intracranial hemorrhage or space-occupying lesion. Electronically Signed: Lisa Christianson MD at 17:57 EDT Reading Location ID and State: [place] , Service support , ADDENDUM: 12/21/22 1806 IMPRESSION: Chronic changes as described. No acute intracranial hemorrhage or space-occupying lesion. N.B. : The above Results were Read Back by Lisa Christianson MD to Ge Nogueira,DO, and understanding confirmed on 12/21/2022 17:59:46 (ET). Electronically Signed: Lisa Christianson MD at 17:57 EDT Reading Location ID and State: [place] , Service support , Chest X-Ray 12/21/22 18:03 IMPRESSION: No acute cardiopulmonary disease. Electronically Signed: Lisa Christianson MD at 19:00 EDT Reading Location ID and State: [id number] / [employer] , Service support , Physical Exam Const alert and no apparent distress Constitutional Narrative: Chronically ill-appearing female, sitting comfortably in bed, conversing normally, appears fatigued. No acute distress. General Appearance: cooperative and comfortable HEENT normocephalic, head/scalp atraumatic, hearing grossly normal bilaterally, nasal mucous membranes and turbinates normal and moist oral mucous membranes Eyes PERRL, EOMs intact bilaterally and conjunctivae normal Neck full ROM and supple Chest inspection of chest normal Resp normal respiratory effort, normal air movement, no use of accessory muscles and clear to auscultation bilaterally Cardio regular rate, regular rhythm, no murmurs and peripheral pulses 2+ throughout GI normal to inspection, nondistended, normoactive bowel sounds, soft to palpation, non-tender and non-distended GI Narrative: No suprapubic tenderness noted. Back/Spine normal ROM Extremity normal to inspection, full ROM and no pedal edema Skin no rashes or lesions noted Psych mental status grossly normal Assessment & Plan Assessment/Plan (1) Acute UTI: PLAN: Plan Patient is a 77-year-old female with history of dementia, Parkinson's disease, type 2 diabetes, hypertension and hypothyroidism who presented to [facility] on 12/21/2022 with worsening weakness. 1. Sepsis without shock, UTI Met sepsis criteria on admission of elevated WBC count of 15, and PCO2 less than 32. Lactate 4.1 on admit. UA showed positive nitrates, leukocyte esterase 500, however no bacteria noted. Urine culture positive for E. coli, sensitivities pending. Blood cultures with no growth to date. Started on ceftriaxone and given IV fluid resuscitation with improvement. ? Continue ceftriaxone, narrow as able. Course length to be determined based on findings from renal and bladder ultrasound as below. Monitor labs and urine output. 2. History of hydronephrosis with ureteral stent placement Patient notably was hospitalized from 05/24 through 05/30/2022 for septic shock secondary to UTI. Urine culture at that time grew out Klebsiella sensitive to ceftriaxone, and she completed a 10-day course of antibiotics. Was found on CT abdomen/pelvis to have right-sided hydronephrosis. Underwent ureteral stent placement with Dr. Ramirez with urology on 05/27. Had repeat cystoscopy done in outpatient setting with Dr. Ramirez on 06/12; was noted to have a urethral stricture, had original stent removed with placement of new stent in the renal pelvis. She continued to have issues after that, saw Dr. Garcia with urology and had another cystoscopy done on 09/12; was found to have significant pyuria and debris within the kidney, stent was removed and not replaced as Dr. Garcia did not think it was necessary, treated with course of p.o. antibiotics. ?Given his extensive history over the last several months, have concern that patient may have recurrent hydronephrosis and/or possible pyonephritis. Renal/bladder ultrasound ordered. Treating UTI as above. 3. Acute encephalopathy, resolved ? Suspect secondary to UTI plus or minus only mild worsening from her known baseline of dementia with Parkinson disease as noted below. CT head on admit showed chronic changes, was nonacute. Now appears improved back to her baseline. Treat infection as above. Monitor. 4. YAMILEX on CKD stage IIIb, resolved ? Very likely prerenal secondary to infection as above. Creatinine 1.76 on admit, improved to 1.1 with IV fluids. Baseline creatinine around 1.1-1.3. No need to monitor further BMPs. 5. Debility ? Patient lives at home with , unclear functional status at baseline. Patient's called EMS when he noted the patient was becoming significantly weaker and was unable to get up and go to the bathroom. PT/OT/case management following. Will need to discuss further with patient and on safe discharge plan. Chronic medical conditions: ? Type 2 diabetes: On home metformin and glipizide. Sliding scale insulin while inpatient. ? Hypertension: On home metoprolol. Holding in setting of hypotension secondary to infection as above, restart as needed. ? Parkinson disease, dementia: Continue home carbidopa/levodopa, memantine, risperidone, tolterodine. ? Hypothyroidism: Continue home Synthroid. DVT prophylaxis: Lovenox CODE STATUS: Full code, unverified Expected disposition: TBD Total clinical time spent by myself addressing the patient's medical issues, reviewing all the data, and collaborating with patient's care team: 35 minutes. Charges/Coding Visit Charges Inpatient E&M: 79007 Subs Hosp L2
[2022-12-22 20:32] VITALS: BP 115/47; PULSE 95; RESP 18; TEMP 37; O2SAT 97
[2022-12-22] MEDS: LORazepam 0.5 MG Tablet PO (20:45)
[2022-12-22] MEDS: Atorvastatin Calcium 10 MG Tablet PO (20:45)
[2022-12-22] MEDS: Ondansetron 4 MG/2 ML Vial IV (20:45)
[2022-12-22 21:40] LABS: Bedside Glucose 177 mg/dL (74-106)
[2022-12-23 03:20] VITALS: BP 127/67; PULSE 98; RESP 18; TEMP 37; O2SAT 96
[2022-12-23 04:51] VITALS: BMI 25.5
[2022-12-23] MEDS: Insulin Lispro 100 UNIT/ML INSULN.PEN SC ×4 (05:46→23:01)
[2022-12-23] MEDS: SimETHICONE 80 MG Chewable Tablet PO (05:46)
[2022-12-23] MEDS: Levothyroxine 50 MCG Tablet PO (05:46)
[2022-12-23] MEDS: Carbidopa/Levodopa 25/100 Tablet PO ×3 (05:46→16:47)
[2022-12-23 06:35] LABS: Bedside Glucose 174 mg/dL (74-106)
[2022-12-23 07:48] VITALS: O2SAT 96
--- NOTE | 2022-12-23 09:13 | US_ITS ---
INDICATION: r/o hydronephrosis EXAMINATION: Ultrasound US Kidney(s) complete (eg, kidneys and bladder) TECHNIQUE: Delcid scale and color doppler images were obtained of the kidneys. COMPARISON: Prior studies dated: CT and ultrasound dated May 26, 2022 FINDINGS: RIGHT KIDNEY: The right kidney measures 11 cm in length. There is moderate hydronephrosis. No shadowing calculus, focal lesion or perinephric collection is demonstrated. LEFT KIDNEY: The left kidney measures 10.9 cm in length.. There is moderate hydronephrosis. No shadowing calculus, focal lesion or perinephric collection is demonstrated. URINARY BLADDER: The bladder is incompletely distended. No acute abnormality. US/Kidney and Bladder IMPRESSION: Bilateral hydronephrosis. Electronically Signed: Tamara Hebert MD at 11:25 EDT ,
[2022-12-23 10:11] VITALS: BP 107/66; PULSE 85; RESP 16; TEMP 36.9; O2SAT 97
[2022-12-23] MEDS: Tolterodine Tartrate 2 MG CAP.SA PO (10:15)
[2022-12-23] MEDS: Aspirin 81 MG TAB.CHEW PO (10:15)
[2022-12-23] MEDS: Enoxaparin 40 MG/0.4 ML Syringe SC (10:15)
[2022-12-23] MEDS: Memantine Hydrochloride 10 MG Tablet PO ×2 (10:15→22:53)
[2022-12-23] MEDS: RisperiDONE 0.5 MG Tablet PO ×2 (10:15→22:53)
[2022-12-23] MEDS: Menthol/Lanolin/Calamine/Znox 113 GM Tube 1 APPLIC TOPICAL ×2 (10:21→22:54)
[2022-12-23] MEDS: Glucerna Shake 120 ML LIQUID PO ×3 (10:24→16:52)
[2022-12-23] MEDS: Ceftriaxone 1 GM/50 ML BAG IV ×2 (10:28→22:52)
[2022-12-23 10:35] LABS: Absolute Lymphocyte Count 1.01 X10^3/uL (0.83-4.51); Basophil# 0.02 X10^3/uL; Basophil% 0.2 % (0-1); Eosinophil# 0.06 X10^3/uL; Eosinophils% 0.7 % (0-5); Hemoglobin 9.8 g/dL (12.0-15.0); Lymphocyte # 1.01 X10^3/ul (0.83-4.51); Lymphocyte % 11.1 % (19-41); Mean Corp Hgb Conc 31.6 g/dL (32-36); Mean Corpuscular Hgb 28.4 pg (27.0-32.0); Mean Corpuscular Volume 89.9 fL (81-99); Mean Platelet Vol. 9.6 fl (6.2-12.0); NRBC Flagged by Analyzer 0 % (0-5); Neutrophil # 6.99 X10^3/uL (2.7-7.7); Neutrophil % 76.6 % (47-70); Platelet Count 246 K/mm3 (150-450); RBC Distribution Width CV 15.1 % (11.6-14.6); RBC Distribution Width SD 49.9 fl (35.1-43.9); Red Blood Count 3.45 M/mm3 (4.2-5.4); White Blood Count 9.1 K/mm3 (4.4-11.0)
[2022-12-23 11:11] LABS: Anion Gap 8 (5-15); BUN 18 mg/dL (7-18); Calcium,Total 8.4 mg/dL (8.5-10.1); Chloride 108 mmol/L (98-107); Creatinine, Serum 1.29 mg/dL (0.55-1.02); EST Glomerular Filtration Rate 43 mL/min (>60); Est Glom Filt Rate - Afr Amer 52 mL/min (>60); Glucose 208 mg/dL (74-106); Potassium 4.1 mmol/L (3.5-5.1); Sodium Level 139 mmol/L (136-145)
--- NOTE | 2022-12-23 11:51 | CASEMGMT ---
Addendum entered by Bernarda Garcia 12/23/22 15:13: ARIANA HUERTA into patient room for follow-up conversation with patient and her , Jeet. Jeet verifies that patient does not have a living will or HCPOA. Jeet did inform RN DEANNA that for specialists, patient does see Radha (Urologist) and Antonio (Neurologist). Jeet also verifies that they had previously been using [facility] as their HHC agency. Patient and state they would like to resume services with this same agency at discharge. Patient and informed/reminded of PT's recommendation for SNF. Discussed with patient's that patient would really like to go home (she does not want to go anywhere else), and he states that he feels he will be able to care for her at home as long as she can get to the restroom on her own. Patient and state they believe she is close to her baseline, concerning ambulation, and that she only has a short distance to walk to get to the restroom at home. [facility] was called and informed that patient would like to resume HHC with them upon discharge and to add OT. Order placed in [place]. RN DEANNA Will follow therapy for continued discharge planning. Original Note: RN CM Face to Face with patient for initial transition planning/care coordination assessment. RN CM introduced self and role at [facility]. Patient lying in bed, alert and oriented. Patient willing to participate in assessment and is able to answer all questions appropriately, but does seem forgetful about some information/details.? Care providers, pharmacy, and demographics verified. Patient wishes to discharge home, but states she is open to considering SNF if her feels SNF would be more appropriate for her at this time. Patient states she has no further needs or concerns at this time. CM to follow for discharge planning needs that may arise. PCP:Alvaro Specialists:Radha (Urologist) Preferred Pharmacy: [facility] (preferred for this admission), [facility] in [place] Insurance:[employer] [facility] Prescription Benefit:?Yes Living Will/HPOA:No/No LNOK:, Jeet Rod; Sons Roland and Fercho; sister Julia Connell (out of town) Living Arrangements:Patient reports she lives with her in a first floor apartment; no stairs to enter. Patient reports her assists her with bathing and dressing. She states her also does their cooking, her medication set-up, and some of the cleaning (patient states she does do some sweeping). Transportation: , Jeet JL/C:Patient reports she has a shower chair, grab bars, and a hand held shower head in their shower, and a rollator. Patient was offered information on a medical alert device, but she declined this information. Patient reports that she is active with [facility], but does not recall the name of the agency. She states PT comes once a week, and a wound care nurse once a week, and an Aid comes once a week for bathing only. Patient wishes to resume with same agency and declines list of other HHC options. She denies any previous SNF. Disposition Plan:SNF vs. HHC. ARIANA CM to follow-up with patient's to see if he feels SNF would be appropriate at this time. ARIANA CM also to follow-up with on C agency currently in use. Bernarda MURRAY, RN, CM
[2022-12-23] MEDS: Acetaminophen 325 MG Tablet 650 MG PO (12:02)
[2022-12-23 12:28] LABS: Bedside Glucose 205 mg/dL (74-106)
[2022-12-23 14:09] VITALS: BP 116/67; PULSE 87; RESP 16; TEMP 36.4; O2SAT 98
--- NOTE | 2022-12-23 14:59 | CASEMGMT ---
Discharge Planning Resumption of services sent to [facility] via [facility]. Shirley Perry, Discharge Planning Asst.
--- NOTE | 2022-12-23 15:25 | CHAPLAIN ---
Type of Pastoral Visit _x__ Initial Visit ___ Follow-up Visit ___ On-call Visit ___ General Patient Visit ___ Spiritual Assessment ___ Family Conference ___ Bereavement ___ Rapid Response ___ Code Blue ___ Other (describe below) Pastoral Care Referral From _x__ Patient ___ Family ___ Nurse ___ Physician ___ Bulkhead Carpenter ___ Environmental Monitoring Specialist ___ Other (describe below) Sacrament/Intervention _x__ Active listening ___ Anointing ___ Amish ___ Bereavement ___ Communion ___ Debora exploration ___ ___ Life review _x__ Prayer ___ Reconciliation ___ Sacrament of Sick _x__ Supportive presence ___ Wedding ___ Other (describe below) Pastoral Comments patient and spouse in the room; pt and spouse both give details and information about situation and the health of pt; pt also has Parkinson's; discussion on how pt is feeling and how pt dayron with her situation; pt requests support through prayer; pt and spouse are not currently active in a debora community
--- NOTE | 2022-12-23 16:00 | PCM.PN.HOSP ---
Reason for Visit Reason for Visit: Diagnoses Urinary tract infection, site not specified (12/21/22) Subjective Subjective No acute events overnight. Patient seen at bedside this morning. Sitting comfortably in bed, conversing normally, in no acute distress. Patient reports mild lower back pain this morning. Has some pain also radiating down into both thighs. States this is fairly chronic for her. She denies any suprapubic pain or discomfort. Denies any pain with urination. Denies any fevers or chills. Had renal and bladder ultrasound on this morning and tolerated imaging well. Has been walking around the room with assistance without significant issue. No other acute concerns. Objective Data Objective Data Vital Signs: Vital Signs Temp Pulse Resp BP Pulse Ox O2 Del Method 97.6 F L 87 16 116/67 98 Room Air 12/23/22 14:12/23/22 14:12/23/22 14:12/23/22 14:12/23/22 14:12/23/22 14:09 Oxygen Delivery Method Room Air Weight: 61.4 kg Body Mass Index (BMI) 25.5 Intake & Output: Intake and Output for Last 24 Hours 12/21/22 12/22/22 12/23/22 23:59 23:59 23:59 Intake Total 2270 / 2270 2187.5 / 2187.5 50 / 50 Output Total 150 / 150 1250 / 1250 650 / 650 Balance 2120 / 2120 937.5 / 937.5 -600 / -600 Lab / Micro Data 12/23/22 10:25 12/23/22 10:25 Labs: Laboratory Results - last 24 hr 12/22/22 20:39: POC Glucose 177 H 12/23/22 05:45: POC Glucose 174 H 12/23/22 10:25: WBC 9.1, RBC 3.45 L, Hgb 9.8 L, Hct 31.0 L, MCV 89.9, MCH 28.4, MCHC 31.6 L, RDW Std Deviation 49.9 H, RDW Coeff of Festus 15.1 H, Plt Count 246, MPV 9.6, Immature Gran % (Auto) 0.400, Neut % (Auto) 76.6 H, Lymph % (Auto) 11.1 L, [place] % (Auto) 11.0 H, Eos % (Auto) 0.7, Baso % (Auto) 0.2, Absolute Neuts (auto) 7.0, Absolute Lymphs (auto) 1.01, Nucleated RBC % 0, Sodium 139, Potassium 4.1, Chloride 108 H, Carbon Dioxide 23.0, Anion Gap 8, BUN 18, Creatinine 1.29 H, Estim Creat Clear Calc 28.00, Est GFR (MDRD) Af Amer 52 L, Est GFR (MDRD) Non-Af 43 L, BUN/Creatinine Ratio 14.0, Glucose 208 H, Calcium 8.4 L 12/23/22 12:05: POC Glucose 205 H Micro: Microbiology 12/21/22 18:01 Urine, Catheterized Urine Culture - Final Presumptive E. coli Radiography Diagnostic Testing: Radiology Impression Renal Ultrasound 12/23/22 09:13 IMPRESSION: Bilateral hydronephrosis. Electronically Signed: Tamara Hebert MD at 11:25 EDT , Physical Exam Const alert and no apparent distress Constitutional Narrative: Chronically ill-appearing female, sitting comfortably in bed, conversing normally, appears fatigued. No acute distress. General Appearance: cooperative and comfortable HEENT normocephalic, head/scalp atraumatic, hearing grossly normal bilaterally, nasal mucous membranes and turbinates normal and moist oral mucous membranes Eyes PERRL, EOMs intact bilaterally and conjunctivae normal Neck full ROM and supple Chest inspection of chest normal Resp normal respiratory effort, normal air movement, no use of accessory muscles and clear to auscultation bilaterally Cardio regular rate, regular rhythm, no murmurs and peripheral pulses 2+ throughout GI normal to inspection, nondistended, normoactive bowel sounds, soft to palpation, non-tender and non-distended GI Narrative: No suprapubic tenderness noted. Back/Spine normal ROM Extremity normal to inspection, full ROM and no pedal edema Skin no rashes or lesions noted Psych mental status grossly normal Assessment & Plan Assessment/Plan (1) Acute UTI: PLAN: Plan Patient is a 77-year-old female with history of dementia, Parkinson's disease, type 2 diabetes, hypertension and hypothyroidism who presented to [facility] on 12/21/2022 with worsening weakness. 1. Sepsis without shock, UTI Met sepsis criteria on admission of elevated WBC count of 15, and PCO2 less than 32. Lactate 4.1 on admit. UA showed positive nitrates, leukocyte esterase 500, however no bacteria noted. Urine culture positive for E. coli, sensitive to ceftriaxone. Blood cultures with no growth to date. Improved with IV fluid resuscitation and initiation of ceftriaxone. Renal bladder ultrasound 12/23 showed moderate bilateral hydronephrosis. ? Given history of hydronephrosis as noted below, urology consulted for further recommendations. Continue ceftriaxone for now. Continue to monitor labs and urine output. 2. History of hydronephrosis with ureteral stent placement Patient notably was hospitalized from 05/24 through 05/30/2022 for septic shock secondary to UTI. Urine culture at that time grew out Klebsiella sensitive to ceftriaxone, and she completed a 10-day course of antibiotics. Was found on CT abdomen/pelvis to have right-sided hydronephrosis. Underwent ureteral stent placement with Dr. Ramirez with urology on 05/27. Had repeat cystoscopy done in outpatient setting with Dr. Ramirez on 06/12; was noted to have a urethral stricture, had original stent removed with placement of new stent in the renal pelvis. She continued to have issues after that, saw Dr. Garcia with urology and had another cystoscopy done on 09/12; was found to have significant pyuria and debris within the kidney, stent was removed and not replaced as Dr. Garcia did not think it was necessary, treated with course of p.o. antibiotics. ?Renal bladder ultrasound showed bilateral hydronephrosis as noted above. Urology consulted, appreciate assistance. 3. Acute encephalopathy, resolved ? Suspect secondary to UTI plus or minus only mild worsening from her known baseline of dementia with Parkinson disease as noted below. CT head on admit showed chronic changes, was nonacute. Now appears improved back to her baseline. Treat infection as above. Monitor. 4. YAMILEX on CKD stage IIIb, resolved ? Very likely prerenal secondary to infection as above. Creatinine 1.76 on admit, improved to 1.1 with IV fluids. Baseline creatinine around 1.1-1.3. No need to monitor further BMPs. 5. Debility ?Discussed with over the phone on 12/23. Patient lives at home with but does have home health care services on board. Has been able to complete most ADLs with assistance over the last few weeks to months. Patient and would prefer that patient goes home with home health care services if possible. PT/OT/case management following. Chronic medical conditions: ? Type 2 diabetes: On home metformin and glipizide. Sliding scale insulin while inpatient. ? Hypertension: On home metoprolol. Holding in setting of hypotension secondary to infection as above, restart as needed. ? Parkinson disease, dementia: Continue home carbidopa/levodopa, memantine, risperidone, tolterodine. ? Hypothyroidism: Continue home Synthroid. DVT prophylaxis: Lovenox CODE STATUS: Full code, unverified Expected disposition: Likely home with home health care, 1 to 2 days Total clinical time spent by myself addressing the patient's medical issues, reviewing all the data, and collaborating with patient's care team: 35 minutes. Charges/Coding Visit Charges Inpatient E&M: 29991 Subs Hosp L2
[2022-12-23 17:05] LABS: Bedside Glucose 189 mg/dL (74-106)
[2022-12-23] MEDS: LORazepam 0.5 MG Tablet PO (22:51)
[2022-12-23] MEDS: 0.9% Saline Lock 10 ML Syringe IV (22:52)
[2022-12-23] MEDS: Atorvastatin Calcium 10 MG Tablet PO (22:53)
[2022-12-23 23:00] VITALS: BP 127/62; PULSE 88; RESP 18; TEMP 36.6; O2SAT 97
[2022-12-23 23:34] LABS: Bedside Glucose 178 mg/dL (74-106)
[2022-12-24 05:55] VITALS: BMI 25.5
[2022-12-24 06:00] VITALS: BP 121/77; PULSE 82; RESP 14; TEMP 36.9; O2SAT 96
[2022-12-24] MEDS: Levothyroxine 50 MCG Tablet PO (06:05)
[2022-12-24] MEDS: Carbidopa/Levodopa 25/100 Tablet PO ×3 (06:05→17:14)
[2022-12-24 06:27] LABS: Bedside Glucose 139 mg/dL (74-106)
[2022-12-24 08:18] VITALS: O2SAT 95
[2022-12-24] MEDS: Tolterodine Tartrate 2 MG CAP.SA PO (08:59)
[2022-12-24] MEDS: Menthol/Lanolin/Calamine/Znox 113 GM Tube 1 APPLIC TOPICAL ×2 (09:00→21:52)
[2022-12-24] MEDS: Memantine Hydrochloride 10 MG Tablet PO ×2 (09:00→21:46)
[2022-12-24] MEDS: Aspirin 81 MG TAB.CHEW PO (09:00)
[2022-12-24] MEDS: Enoxaparin 40 MG/0.4 ML Syringe SC (09:00)
[2022-12-24] MEDS: RisperiDONE 0.5 MG Tablet PO ×2 (09:00→21:52)
[2022-12-24] MEDS: Ceftriaxone 1 GM/50 ML BAG IV ×2 (09:01→21:48)
[2022-12-24] MEDS: Glucerna Shake 120 ML LIQUID PO ×3 (09:02→21:43)
[2022-12-24 09:08] VITALS: BP 122/68; PULSE 75; RESP 16; TEMP 36.5; O2SAT 97
[2022-12-24] MEDS: Insulin Lispro 100 UNIT/ML INSULN.PEN SC ×3 (11:43→21:50)
[2022-12-24 12:08] LABS: Bedside Glucose 258 mg/dL (74-106)
--- NOTE | 2022-12-24 13:05 | PCM.PN.HOSP ---
Reason for Visit Reason for Visit: Diagnoses Urinary tract infection, site not specified (12/21/22) Subjective Subjective No acute events overnight. Patient seen at bedside this morning. Patient sitting comfortably in bedside chair, no acute distress. Physical therapy had just finished working with her prior to my interview. Patient does appear quite weak and has notable tremor. She does report feeling somewhat weak but was able to work with therapy. She denies any acute pain or discomfort. She denies any fevers or chills. She does not have much of an appetite at this time. No other acute concerns. Objective Data Objective Data Vital Signs: Vital Signs Temp Pulse Resp BP Pulse Ox O2 Del Method 97.7 F L 75 16 122/68 H 97 Room Air 12/24/22 09:08 12/24/22 09:08 12/24/22 09:08 12/24/22 09:08 12/24/22 09:08 12/24/22 09:13 Oxygen Delivery Method Room Air Weight: 61.3 kg Body Mass Index (BMI) 25.5 Intake & Output: Intake and Output for Last 24 Hours 12/22/22 12/23/22 12/24/22 23:59 23:59 23:59 Intake Total 2187.5 / 2187.5 100 / 100 50 / 50 Output Total 1250 / 1250 900 / 900 700 / 700 Balance 937.5 / 937.5 -800 / -800 -650 / -650 Lab / Micro Data 12/23/22 10:25 12/23/22 10:25 Labs: Laboratory Results - last 24 hr 12/23/22 16:46: POC Glucose 189 H 12/23/22 23:01: POC Glucose 178 H 12/24/22 06:04: POC Glucose 139 H 12/24/22 11:42: POC Glucose 258 H Micro: Microbiology 12/21/22 18:28 Blood Culture (Wb) - Right Hand Blood Culture - Preliminary No growth in 48 hours. 12/21/22 18:34 Blood Culture (Wb) - Anticubital Right Blood Culture - Preliminary No growth in 48 hours. 12/21/22 18:01 Urine, Catheterized Urine Culture - Final Presumptive E. coli Physical Exam Const alert and no apparent distress Constitutional Narrative: Chronically ill-appearing female, sitting comfortably in bedside chair, no acute distress. Appears weak with tremor noted. Otherwise conversing normally. General Appearance: cooperative and comfortable HEENT normocephalic, head/scalp atraumatic, hearing grossly normal bilaterally, nasal mucous membranes and turbinates normal and moist oral mucous membranes Eyes PERRL, EOMs intact bilaterally and conjunctivae normal Neck full ROM and supple Chest inspection of chest normal Resp normal respiratory effort, normal air movement, no use of accessory muscles and clear to auscultation bilaterally Cardio regular rate, regular rhythm, no murmurs and peripheral pulses 2+ throughout GI normal to inspection, nondistended, normoactive bowel sounds, soft to palpation, non-tender and non-distended GI Narrative: No suprapubic tenderness noted. Back/Spine normal ROM Extremity normal to inspection, full ROM and no pedal edema Skin no rashes or lesions noted Psych mental status grossly normal Assessment & Plan Assessment/Plan (1) Acute UTI: PLAN: Plan Patient is a 77-year-old female with history of dementia, Parkinson's disease, type 2 diabetes, hypertension and hypothyroidism who presented to [facility] on 12/21/2022 with worsening weakness. 1. Sepsis without shock, improved; complicated UTI Met sepsis criteria on admission of elevated WBC count of 15, and PCO2 less than 32. Lactate 4.1 on admit. UA showed positive nitrates, leukocyte esterase 500, however no bacteria noted. Urine culture positive for E. coli, sensitive to ceftriaxone. Blood cultures with no growth to date. Improved with IV fluid resuscitation and initiation of ceftriaxone. Renal bladder ultrasound 12/23 showed moderate bilateral hydronephrosis. ?Urology unfortunately unable to see patient in the hospital this week. Given that this hydronephrosis is very likely chronic, will be okay for close outpatient follow-up with urology. Continue ceftriaxone for now, will plan for Omnicef on discharge. Continue to monitor labs and urine output. 2. History of hydronephrosis with ureteral stent placement Patient notably was hospitalized from 05/24 through 05/30/2022 for septic shock secondary to UTI. Urine culture at that time grew out Klebsiella sensitive to ceftriaxone, and she completed a 10-day course of antibiotics. Was found on CT abdomen/pelvis to have right-sided hydronephrosis. Underwent ureteral stent placement with Dr. Ramirez with urology on 05/27. Had repeat cystoscopy done in outpatient setting with Dr. Ramirez on 06/12; was noted to have a urethral stricture, had original stent removed with placement of new stent in the renal pelvis. She continued to have issues after that, saw Dr. Garcia with urology and had another cystoscopy done on 09/12; was found to have significant pyuria and debris within the kidney, stent was removed and not replaced as Dr. Garcia did not think it was necessary, treated with course of p.o. antibiotics. ?Renal bladder ultrasound showed bilateral hydronephrosis as noted above. Urology unfortunately unable to see patient in hospital. We will plan for close outpatient follow-up with urology. 3. Debility in setting of known Parkinson's disease and cognitive impairment ? Noted by on admission the patient was able to ambulate to the bathroom and back on her own at home for 1 to 2 days prior to admission. Patient notably does have home health care services set up, and does require assistance from both and C aides to complete several ADLs. PT/OT/case management following here. PT recommending SNF placement for patient based on her weakness and limited activity level. However, patient adamantly refuses to go to acute rehab. Spoke with and patient will be okay for home with home health care on discharge, but may need further services at home going forward. Likely okay for discharge home tomorrow. 4. Acute encephalopathy, resolved ? Suspect secondary to UTI plus or minus only mild worsening from her known baseline of dementia with Parkinson disease as noted below. CT head on admit showed chronic changes, was nonacute. Now appears improved back to her baseline. Treat infection as above. Monitor. 5. YAMILEX on CKD stage IIIb, resolved ? Very likely prerenal secondary to infection as above. Creatinine 1.76 on admit, improved to 1.1 with IV fluids. Baseline creatinine around 1.1-1.3. No need to monitor further BMPs. Chronic medical conditions: ? Type 2 diabetes: On home metformin and glipizide. Sliding scale insulin while inpatient. ? Hypertension: On home metoprolol. Holding in setting of hypotension secondary to infection as above, restart as needed. ? Parkinson disease, dementia: Continue home carbidopa/levodopa, memantine, risperidone, tolterodine. ? Hypothyroidism: Continue home Synthroid. DVT prophylaxis: Lovenox CODE STATUS: Full code, unverified Expected disposition: Likely home with home health care, tomorrow Total clinical time spent by myself addressing the patient's medical issues, reviewing all the data, and collaborating with patient's care team: 35 minutes. Charges/Coding Visit Charges Inpatient E&M: 50300 Subs Hosp L2
[2022-12-24 14:05] VITALS: BP 104/62; PULSE 103; RESP 16; TEMP 36.8; O2SAT 98
--- NOTE | 2022-12-24 15:28 | CASEMGMT ---
Per admission questions patient does not have a Healthcare Living Will or Healthcare Power of Studio Operations Engineer In Charge. Patient also declined information on advance directives. Kayley HE
[2022-12-24 17:59] LABS: Bedside Glucose 207 mg/dL (74-106)
[2022-12-24 20:33] VITALS: BP 114/66; PULSE 82; RESP 18; TEMP 36.7; O2SAT 95
[2022-12-24] MEDS: Acetaminophen 325 MG Tablet 650 MG PO (20:36)
[2022-12-24] MEDS: LORazepam 0.5 MG Tablet PO (21:46)
[2022-12-24] MEDS: Atorvastatin Calcium 10 MG Tablet PO (21:46)
[2022-12-24] MEDS: 0.9% Saline Lock 10 ML Syringe IV (21:48)
[2022-12-24 23:21] LABS: Bedside Glucose 212 mg/dL (74-106)
[2022-12-25 04:14] VITALS: BP 113/58; PULSE 81; RESP 16; TEMP 36.6; O2SAT 95
[2022-12-25 04:29] VITALS: BMI 25.3
[2022-12-25] MEDS: Carbidopa/Levodopa 25/100 Tablet PO ×2 (06:17→11:09)
[2022-12-25] MEDS: Insulin Lispro 100 UNIT/ML INSULN.PEN SC ×2 (06:17→11:09)
[2022-12-25] MEDS: Levothyroxine 50 MCG Tablet PO (06:17)
[2022-12-25 07:01] LABS: Bedside Glucose 176 mg/dL (74-106)
[2022-12-25] MEDS: Ceftriaxone 1 GM/50 ML BAG IV (09:09)
[2022-12-25] MEDS: Tolterodine Tartrate 2 MG CAP.SA PO (09:10)
[2022-12-25] MEDS: Aspirin 81 MG TAB.CHEW PO (09:10)
[2022-12-25] MEDS: 0.9% Saline Lock 10 ML Syringe IV (09:10)
[2022-12-25] MEDS: Menthol/Lanolin/Calamine/Znox 113 GM Tube 1 APPLIC TOPICAL (09:11)
[2022-12-25] MEDS: Enoxaparin 40 MG/0.4 ML Syringe SC (09:11)
[2022-12-25] MEDS: RisperiDONE 0.5 MG Tablet PO (09:12)
[2022-12-25] MEDS: Memantine Hydrochloride 10 MG Tablet PO (09:12)
[2022-12-25 10:15] VITALS: BP 122/78; PULSE 82; RESP 16; TEMP 36.7; O2SAT 97
[2022-12-25 10:29] VITALS: O2SAT 97
[2022-12-25 11:40] LABS: Bedside Glucose 197 mg/dL (74-106)
--- NOTE | 2022-12-25 13:18 | PCM.DC ---
Discharge Instructions Diet Discharge Diet: No restrictions Activity Discharge Activity: Return to Normal Activity Weight Bearing Status: Weight bearing as tolerated Follow Up Care Please Follow Up With: Dannielle John MD When: Next 1 to 2 weeks Test Results: Test results from this visit will be discussed in further detail at your follow-up appointment, if applicable. Pending Tests Upon Discharge: None Discharge Plan Admission Admit Date/Time: 12/21/22 19:20 Primary Reason for Your Visit: Weakness Attending Provider: Jeet Lomas Primary Care Provider: Dannielle John Consulting Providers: Marin Thompson; Sidney Garcia Instructions Additional Instructions / Restrictions: Please take cefadroxil (oral antibiotic) twice daily for the next 10 days to complete a 14-day course total of antibiotics for your urinary tract infection. I will call Dr. Garcia's office and make sure you can get an office appointment with him soon to address your hydronephrosis. Discharge Orders/Prescriptions Prescriptions: New cefadroxil 1 gram tablet 1,000 mg PO BID 10 Days Qty: 20 0RF cefadroxil 1 gram tablet 1,000 mg PO BID 10 Days Qty: 20 0RF Continued lorazepam 0.5 MG tablet 0.5 mg PO QHS levothyroxine 50 MCG tablet 50 mcg PO DAILY simvastatin 20 MG tablet 20 mg PO QHS metformin 1,000 MG tablet 500 mg PO BID metoprolol tartrate 25 MG tablet 25 mg PO BID glipizide 2.5 mg tablet extended release 24hr 2.5 mg PO DAILY Patient Comments: Take 1 tablet by mouth daily with breakfast. Rx Instructions: with breakfast aspirin 81 mg Tablet 81 mg PO DAILY Rx Instructions: INSTRUCTED TO STOP 5 DAYS PRIOR TO OR carbidopa-levodopa 25-100 mg tablet 1.5 tab PO TID Patient Comments: Take 1 and 1/2 tablets by mouth every morning AND 1 and 1/2 tablets every afternoon AND 1 and 1/2 tablets every evening. (8AM, Noon, 4PM).. memantine 10 mg tablet 10 mg PO BID Patient Comments: Take 1 tablet by mouth twice daily. solifenacin 5 mg tablet 5 mg PO DAILY Patient Comments: Take 1 tablet by mouth once daily. risperidone 0.5 mg tablet 0.5 mg PO BID Patient Comments: Take 1 tablet by mouth twice daily. Referrals / Follow Up: Dannielle John MD [Primary Care Provider] - Disposition Disposition (needs filled in before D/C Order can be placed): Home Health Service
--- NOTE | 2022-12-25 13:29 | PCM.DC.SUM ---
Providers Date of Admission: 12/21/22 Date of Discharge: 12/25/22 Primary Care Physician: Dr. Dannielle John MD Consultations 12/23/22 11:53 Consult: Urology Routine Consulting Provider: Sidney Garcia Reason for Consult: known h/o R hydronephrosis, recurrent UTI now w/ b/l hydro EMERGENT Consult: No MD Notified: Yes Date Notified: 12/23/22 Time Notified: 11:53 Method of Notification: out of country [facility] 12/30 Reason For Visit: ACUTE CYSTITIS Diagnosis Discharge Diagnosis (1) Acute UTI: Status: Acute Code(s): N39.0 - Urinary tract infection, site not specified Medications at Discharge Home Medications levothyroxine 50 mcg tablet 50 mcg PO DAILY 08/20/19 lorazepam 0.5 mg tablet 0.5 mg PO QHS 08/20/19 metformin 1,000 mg tablet 500 mg PO BID 08/20/19 metoprolol tartrate 25 mg tablet 25 mg PO BID 08/20/19 simvastatin 20 mg tablet 20 mg PO QHS 08/20/19 aspirin 81 mg tablet 81 mg PO DAILY 05/24/22 carbidopa 25 mg-levodopa 100 mg tablet 1.5 tab PO TID 05/24/22 glipizide 2.5 mg tablet, extended release 24 hr 2.5 mg PO DAILY 05/24/22 memantine 10 mg tablet 10 mg PO BID 05/24/22 risperidone 0.5 mg tablet 0.5 mg PO BID 05/24/22 solifenacin 5 mg tablet 5 mg PO DAILY 05/24/22 cefadroxil 1 gram tablet 1,000 mg PO BID 10 days #20 tabs 12/25/22 cefadroxil 1 gram tablet 1,000 mg PO BID 10 days #20 tabs 12/25/22 Hospital Course Procedures EKG, Transthoracic echo and - (CT brain without contrast, chest x-ray, renal ultrasound) Summary of Care Provided Minutes Spent on Discharge: 38 Hospital Course: Patient is a 77-year-old female with history of dementia, Parkinson's disease, type 2 diabetes, hypertension and hypothyroidism who presented to [facility] on 12/21/2022 with worsening weakness. Multiple medical conditions addressed during hospitalization as noted below. Complicated UTI: Presented with sepsis without shock. Met sepsis criteria on admission with elevated WBC count of 15 and PCO2 less than 32. Lactate 4.1 on admit. UA showed positive nitrites, leukocyte esterase 500, however no bacteria noted. Urine culture was positive for E. coli, sensitive to ceftriaxone. Blood cultures were negative. Patient improved with IV fluid resuscitation and initiation of ceftriaxone. Renal bladder ultrasound notably showed moderate bilateral hydronephrosis as discussed below. Patient was discharged on cefadroxil 1 g twice daily with plan to complete a 14-day course total, stop date 01/03. Bilateral hydronephrosis, history of hydronephrosis with ureteral stent placement: Patient noted on this admission to have bilateral hydronephrosis on renal bladder ultrasound. Patient follows with urology in the office, last saw Dr. Garcia back in August 2022. Has had fairly complicated urology history over the past several months. Was hospitalized from 05/24 through 05/30/2022 for septic shock secondary to UTI. Urine culture at that time grew Klebsiella sensitive to ceftriaxone and she completed 10-day course of antibiotics. Was found on CT abdomen/pelvis at that time to have right-sided hydronephrosis. Underwent ureteral stent placement with Dr. Ramirez with urology on 05/27. Had repeat cystoscopy done in outpatient setting with Dr. Ramirez on 06/12, was noted to have a urethral stricture and had original stent removed with placement of new stent in renal pelvis. She continued to have issues after that, saw Dr. Garcia with urology and had another cystoscopy done on 09/12; was found to have significant pyuria and debris within the kidney, stent was removed and not replaced as Dr. Garcia did not think was necessary. She was treated with a course of p.o. antibiotics at that time. Unfortunately, we did not have urology services available in our hospital during patient's hospitalization. Patient had good urine output throughout the admission, had low concern that her hydronephrosis needed to be managed inpatient which would have required transfer to an outside hospital. Discharged on extended antibiotic course with plan for close outpatient follow-up with urology. Debility in setting of known Parkinson's disease and cognitive impairment: PT/OT/case management followed throughout admission. Patient lives with , was noted to be significantly weaker prior to this admission. She notably did have home health care services set up at home prior to this admission. PT/OT initially recommended SNF given her significant functional impairment, however patient adamantly declined. Patient showed good improvement throughout the admission. After further discussion with patient and , patient was discharged home in stable condition with plan to continue home health care services. Discharge diagnoses: ? Complicated UTI ? Sepsis without shock, resolved ? Bilateral hydronephrosis, with history of known hydronephrosis with stent placement ? Chronic debility in setting of known Parkinson's disease and cognitive impairment ? YAMIELX on CKD stage IIIb, resolved ? Type 2 diabetes ? Hypertension ? Hypothyroidism PCP follow-up: Recommend close outpatient follow-up with urology to address hydronephrosis as noted above. Total clinical time spent by myself addressing the patient's discharge needs: 38 minutes. Physical Exam Const alert and no apparent distress Constitutional Narrative: Chronically ill-appearing female, sitting comfortably in bedside chair, no acute distress. Appears weak with tremor noted. Otherwise conversing normally. General Appearance: cooperative and comfortable HEENT normocephalic, head/scalp atraumatic, hearing grossly normal bilaterally, nasal mucous membranes and turbinates normal and moist oral mucous membranes Eyes PERRL, EOMs intact bilaterally and conjunctivae normal Neck full ROM and supple Chest inspection of chest normal Resp normal respiratory effort, normal air movement, no use of accessory muscles and clear to auscultation bilaterally Cardio regular rate, regular rhythm, no murmurs and peripheral pulses 2+ throughout GI normal to inspection, nondistended, normoactive bowel sounds, soft to palpation, non-tender and non-distended GI Narrative: No suprapubic tenderness noted. Back/Spine normal ROM Extremity normal to inspection, full ROM and no pedal edema Skin no rashes or lesions noted Psych mental status grossly normal Weight / BMI Weight Weight: 60.8 kg Body Mass Index (BMI) 25.3 ABG / Lab / Microbiology Data 12/23/22 10:25 12/23/22 10:25 Laboratory: Laboratory Results - last 24 hr 12/24/22 17:15: POC Glucose 207 H 12/24/22 21:44: POC Glucose 212 H 12/25/22 06:16: POC Glucose 176 H 12/25/22 11:07: POC Glucose 197 H Microbiology: Microbiology 12/21/22 18:28 Blood Culture (Wb) - Right Hand Blood Culture - Preliminary No growth in 48 hours. 12/21/22 18:34 Blood Culture (Wb) - Anticubital Right Blood Culture - Preliminary No growth in 48 hours. 12/21/22 18:01 Urine, Catheterized Urine Culture - Final Presumptive E. coli D/C Instructions Discharge Diet: No restrictions Weight Bearing Status: Weight bearing as tolerated Pending Tests Upon Discharge: None Please Follow Up With: Dannielle John MD When: Next 1 to 2 weeks Meaningful Use Info Meaningful Use Diagnoses (Choose all that apply): None applicable Discharge Plan Admission Admit Date/Time: 12/21/22 19:20 Primary Reason for Your Visit: Weakness Attending Provider: Jeet Lomas Primary Care Provider: Dannielle John Consulting Providers: Marin Thompson; Sidney Garcia Instructions Additional Instructions / Restrictions: Please take cefadroxil (oral antibiotic) twice daily for the next 10 days to complete a 14-day course total of antibiotics for your urinary tract infection. I will call Dr. Garcia's office and make sure you can get an office appointment with him soon to address your hydronephrosis. Discharge Orders/Prescriptions Prescriptions: New cefadroxil 1 gram tablet 1,000 mg PO BID 10 Days Qty: 20 0RF cefadroxil 1 gram tablet 1,000 mg PO BID 10 Days Qty: 20 0RF Continued lorazepam 0.5 MG tablet 0.5 mg PO QHS levothyroxine 50 MCG tablet 50 mcg PO DAILY simvastatin 20 MG tablet 20 mg PO QHS metformin 1,000 MG tablet 500 mg PO BID metoprolol tartrate 25 MG tablet 25 mg PO BID glipizide 2.5 mg tablet extended release 24hr 2.5 mg PO DAILY Patient Comments: Take 1 tablet by mouth daily with breakfast. Rx Instructions: with breakfast aspirin 81 mg Tablet 81 mg PO DAILY Rx Instructions: INSTRUCTED TO STOP 5 DAYS PRIOR TO OR carbidopa-levodopa 25-100 mg tablet 1.5 tab PO TID Patient Comments: Take 1 and 1/2 tablets by mouth every morning AND 1 and 1/2 tablets every afternoon AND 1 and 1/2 tablets every evening. (8AM, Noon, 4PM).. memantine 10 mg tablet 10 mg PO BID Patient Comments: Take 1 tablet by mouth twice daily. solifenacin 5 mg tablet 5 mg PO DAILY Patient Comments: Take 1 tablet by mouth once daily. risperidone 0.5 mg tablet 0.5 mg PO BID Patient Comments: Take 1 tablet by mouth twice daily. Referrals / Follow Up: Raina Plunkett FISH MACHINE FEEDER, FISH MACHINE FEEDER-C [Non-Staff -Ordering Privileges] - 01/06/23 1:00 am Disposition Disposition (needs filled in before D/C Order can be placed): Home Health Service Charges/Coding Visit Charges Inpatient E&M: 46751 Disch Hosp >30min
--- NOTE | 2022-12-25 15:02 | CASEMGMT ---
Patient has order for discharge. CHRISTIANO referral sent to [facility] via [facility]. RN CM in to discuss needs at discharge and to inform patient of CHRISTIANO referral sent to [facility] with a start of care date tomorrow or Thursday. Patient voices understanding and denies needs at this time. Patient had no further questions/concerns at this time. Bernarda MURRAY, RN, CM
[2022-12-25 15:27] VITALS: BP 118/76; PULSE 76; RESP 18; TEMP 36.8; O2SAT 98
== END 2022-12-25 15:59 | disposition home health service (06) | DRG 871 ==
LOC: ED 19:20 → ICU 20:08 → PCU 21:06
PROVIDERS: Admitting Provider Hospitalist; Emergency Provider Emergency Medicine; PCP Internal Medicine; Visit Provider Hospitalist
DX: A41.51 Sepsis due to Escherichia coli [E. coli] (principal); G93.41 Metabolic encephalopathy; N17.9 Acute kidney failure, unspecified; N39.0 Urinary tract infection, site not specified; E11.21 Type 2 diabetes mellitus with diabetic nephropathy; E03.9 Hypothyroidism, unspecified; B96.20 Unspecified Escherichia coli [E. coli] as the cause of diseases classified elsewhere; F03.90 Unspecified dementia, unspecified severity, without behavioral disturbance, psychotic disturbance, mood disturbance, and anxiety; G20 Parkinson's disease; N18.32 Chronic kidney disease, stage 3b; E11.22 Type 2 diabetes mellitus with diabetic chronic kidney disease; E11.65 Type 2 diabetes mellitus with hyperglycemia; F02.80 Dementia in other diseases classified elsewhere, unspecified severity, without behavioral disturbance, psychotic disturbance, mood disturbance, and anxiety; I12.9 Hypertensive chronic kidney disease with stage 1 through stage 4 chronic kidney disease, or unspecified chronic kidney disease; E78.5 Hyperlipidemia, unspecified; I25.2 Old myocardial infarction; Z79.84 Long term (current) use of oral hypoglycemic drugs; Z87.891 Personal history of nicotine dependence; Z86.73 Personal history of transient ischemic attack (TIA), and cerebral infarction without residual deficits
CPT/HCPCS: 36415; 36600; 70450; 71045; 76770; 80048; 80076; 81001; 82803; 82962; 83605; 84484; 85025; 85610; 85730; 87040; 87086; 87088; 87186; 93005; 97162; 97530; 97802; 97803; 99285; J7030; A4216; J2405

== ENCOUNTER 2023-01-17 10:09 | Observation (INO) | payer MEDICARE, SELFPAY ==
[2023-01-17] VITALS (9 sets, daily range): BP systolic 122–144; BP diastolic 65–79; PULSE 95–127; RESP 16–24; TEMP 37.1–39; O2SAT 94–194; BMI 23.8; BMI 24.7
--- NOTE | 2023-01-17 10:28 | EDS_ITS ---
HPI History of Present Illness Chief Complaint: Weakness Informant: patient and EMS Narrative Narrative: Patient brought by EMS because she was frozen and stuck on the toilet, unable to get up on her own, not able to get her either according to the patient. Patient is a very poor informant, she does respond to most ROS questions but not all. She admits to feeling weak for more days than just 1 but she cannot tell me how long. She states that she does not drink enough water, but she denies any other specific symptoms right now. She denies any falls, injury, pain. Reviewing her chart briefly in the EMR reveals that she has Parkinson's. [facility] Medical History Back pain Benign essential hypertension Bladder disease Depression Diabetes Former smoker Generalized anxiety disorder GERD (gastroesophageal reflux disease) High cholesterol History of heart attack HLD (hyperlipidemia) Hydroureteronephrosis Hypertension Kidney stone Parkinson's disease Parkinson's disease Post-menopausal Thyroid disease TIA (transient ischemic attack) Type II diabetes mellitus Walker as ambulation aid Wears dentures Home Medications levothyroxine 50 mcg tablet 50 mcg PO DAILY 08/20/19 [History Last Taken 01/17/23] lorazepam 0.5 mg tablet 0.5 mg PO QHS 08/20/19 [History Last Taken 01/16/23] metformin 1,000 mg tablet 500 mg PO BID 08/20/19 [History Last Taken 01/17/23] metoprolol tartrate 25 mg tablet 25 mg PO BID 08/20/19 [History Last Taken 01/17/23] simvastatin 20 mg tablet 20 mg PO QHS 08/20/19 [History Last Taken 01/16/23] aspirin 81 mg tablet 81 mg PO DAILY 05/24/22 [History Last Taken 01/17/23] carbidopa 25 mg-levodopa 100 mg tablet 1.5 tab PO TID 05/24/22 [History Last Taken 01/17/23] glipizide 2.5 mg tablet, extended release 24 hr 2.5 mg PO DAILY 05/24/22 [History Last Taken 01/17/23] memantine 10 mg tablet 10 mg PO BID 05/24/22 [History Last Taken 01/17/23] risperidone 0.5 mg tablet 0.5 mg PO BID 05/24/22 [History Last Taken 01/17/23] solifenacin 5 mg tablet 5 mg PO DAILY 05/24/22 [History Last Taken Unknown] Allergy/AdvReac Type Severity Reaction Status Date / Time No Known Allergies Allergy Verified 01/17/23 10:09 Family History Mother Heart disease Hypertension Father No problems noted. Surgical History History of cystoscopy History of ureteroscopy Hx of CABG Social History household members: spouse housing: house Smoking Status: Unknown if ever smoked alcohol intake: never substance use type: does not use ROS ROS ED Review of Systems ROS Unobtainable: other Details: Limited due to not feeling well and not answering all questions Constitutional Constitutional ED: Reports weakness; Denies chills or fever(s) Eyes Eyes: Denies change in vision ENT ENT ED: Reports dry mouth; Denies sore throat Cardiovascular Cardiovascular: Denies chest pain Respiratory/Chest Respiratory/Chest: Denies cough or dyspnea Gastrointestinal Gastrointestinal: Denies abdominal pain, diarrhea, nausea or vomiting Genitourinary Genitourinary ED: Denies dysuria Musculoskeletal Musculoskeletal: Denies back pain or neck pain Neurologic Neurologic: Denies headache(s) or weakness EXAM Physical Exam Const Vital Signs: 01/17/23 10:10 01/17/23 10:15 01/17/23 12:54 Temperature 99.0 F Temperature Source Temporal Pulse Rate 100 98 Respiratory Rate 16 20 H Respiratory Effort Normal Respiratory Pattern Normal Blood Pressure 122/72 H 128/68 H Blood Pressure Mean 88 88 Pulse Ox 194 94 Oxygen Delivery Method Room Air Room Air Positive well nourished and well developed Constitutional Narrative: Keenly alert, sitting up in bed in no distress General Appearance ED: well developed and NAD HEENT Reports moist mucous membranes normocephalic and atraumatic Eyes PERRL and EOMs intact bilaterally Neck full ROM, no lymphadenopathy, supple and no JVD Resp normal respiratory effort and clear to auscultation bilaterally Cardio regular rate, regular rhythm and no murmurs Rate: tachycardic GI non-tender and non-distended Auscultation: normoactive bowel sounds Palpation: soft Back/Spine no CVA tenderness Back/Spine Narrative: Kyphotic Cervical Spine: Negative for cervical spine tenderness Thoracic Spine / Upper Back: Negative for thoracic spinal tenderness Lumbar Spine / Lower Back: Negative for lumbar spinal tenderness Extremity normal to inspection General Extremety ED: Negative for edema, pulses abnormal or tenderness General Extremity: Negative for edema or pulses abnormal Neuro oriented x3, CN's II-XII intact bilaterally and no sensory deficits noted Sensorium / Orientation: awake and alert Motor Exam: general weakness Psych Psych Narrative: Flat affect. Poor eye contact. Responds with 1-2 word sentences. Skin no rashes or lesions noted and no wounds MDM MDM MDM Narrative Medical decision making narrative: Etiology of the patient's generalized weakness is not obvious clinically, so work-up was obtained, she has a leukocytosis, but the rest of the work-up really is unremarkable except for some mild increase in her creatinine and BUN, possibly due to dehydration. She was given a liter of fluid, she was not able to stand or walk afterwards. She has leukocyte esterase in her urine but no pyuria or bacteria, this was a catheterized specimen. Chest x-ray does not appear to show pneumonia on my interpretation, 1 view. Radiology in agreement. EKG and troponin both unremarkable/unchanged, my interpretation and not consistent with acute coronary syndrome. Plan will be for continued hydration and admission since I do not think she will be able to go home safely. Patient amenable, discussed with hospitalist. History & Record Review Additional record(s) reviewed:: Prior labs Lab Data Attestation: I reviewed the patient's lab results. Labs: Laboratory Results - last 24 hr 01/17/23 01/17/23 10:00 11:20 WBC 14.7 H RBC 4.06 L Hgb 11.5 L Hct 37.3 MCV 91.9 MCH 28.3 MCHC 30.8 L RDW Std Deviation 50.4 H RDW Coeff of Festus 14.9 H Plt Count 274 MPV 11.0 Immature Gran % (Auto) 0.500 Neut % (Auto) 78.2 H Lymph % (Auto) 11.3 L [place] % (Auto) 9.6 Eos % (Auto) 0.1 Baso % (Auto) 0.3 Absolute Neuts (auto) 11.5 H Absolute Lymphs (auto) 1.66 Nucleated RBC % 0 Sodium 137 Potassium 3.8 Chloride 105 Carbon Dioxide 19.0 L Anion Gap 13 BUN 37 H Creatinine 1.71 H Estim Creat Clear Calc 21.12 Est GFR (MDRD) Af Amer 37 L Est GFR (MDRD) Non-Af 31 L BUN/Creatinine Ratio 21.6 H Glucose 286 H Calcium 9.1 Troponin I High Sens 6 Urine Color Yellow Urine Clarity Turbid Urine pH 6.0 Ur Specific [place] 1.015 Urine Protein 100 H Urine Glucose (UA) 100 H Urine Ketones 50 H Urine Occult Blood 250 H Urine Nitrite Negative Urine Bilirubin Negative Urine Urobilinogen Normal Ur Leukocyte Esterase 500 H Urine RBC 0 SEEN Urine WBC 0 SEEN Ur Squamous Epith Cells > 100 SEEN Urine Bacteria 0 SEEN Urine Mucus 0 SEEN Radiography Chest X-Ray - ED: 1 View, Read by ED Physician, No Acute Disease, Chronic Changes and No Infiltrates Diagnostic Testing: Clinical Impression(s) from Imaging Studies Chest X-Ray 01/17/23 10:45 IMPRESSION: Degenerative changes, as described above. No demonstrated acute cardiopulmonary process. Electronically Signed: Valente Marcano MD at 11:12 EDT Reading Location ID and State: [facility] / [place] , Service support , Rhythm Strip Rhythm Strip: Sinus Tach Rate: 115 Ectopy: None EKG Initial EKG: Attestation: I personally reviewed and interpreted this EKG as follows: Interpretation: No Acute Injury Pattern, Sinus Tachycardia and Non- Specific ST Changes Prior EKG tracings: available for review Prior: Unchanged Management Discussion w/another healthcare provider: Hospitalist Discharge Plan Triage Chief Complaint: Weakness ED Provider: Sony Stearns Dx/Rx/DC Orders Clinical Impression: Generalized weakness, Acute renal insufficiency, Declining functional status Prescriptions: No Action lorazepam 0.5 MG tablet 0.5 mg PO QHS levothyroxine 50 MCG tablet 50 mcg PO DAILY simvastatin 20 MG tablet 20 mg PO QHS metformin 1,000 MG tablet 500 mg PO BID metoprolol tartrate 25 MG tablet 25 mg PO BID glipizide 2.5 mg tablet extended release 24hr 2.5 mg PO DAILY Patient Comments: Take 1 tablet by mouth daily with breakfast. Rx Instructions: with breakfast aspirin 81 mg Tablet 81 mg PO DAILY Rx Instructions: INSTRUCTED TO STOP 5 DAYS PRIOR TO OR carbidopa-levodopa 25-100 mg tablet 1.5 tab PO TID Patient Comments: Take 1 and 1/2 tablets by mouth every morning AND 1 and 1/2 tablets every afternoon AND 1 and 1/2 tablets every evening. (8AM, Noon, 4PM).. memantine 10 mg tablet 10 mg PO BID Patient Comments: Take 1 tablet by mouth twice daily. solifenacin 5 mg tablet 5 mg PO DAILY Patient Comments: Take 1 tablet by mouth once daily. risperidone 0.5 mg tablet 0.5 mg PO BID Patient Comments: Take 1 tablet by mouth twice daily. Primary Care Provider: Dannielle John Referrals: Dannielle John MD [Primary Care Provider] -
[2023-01-17] MEDS: 0.9% Normal Saline (1000mL) 1,000 ML 1000 ML IV (10:42)
--- NOTE | 2023-01-17 10:45 | RAD_ITS ---
STUDY: X-RAY CHEST REASON FOR EXAM: Female, 77 years old. weakness TECHNIQUE: Single AP portable view of the chest. COMPARISON: December 21, 2022 FINDINGS: The lungs are clear and expanded. There is no demonstrated pleural abnormality. Sternal cerclage wires and vascular clips are present from a prior sternotomy and coronary artery bypass graft procedure (CABG). Normal heart size. Normal mediastinum and mercy. Normal visualized pulmonary arteries. There is atherosclerotic calcification of the aortic arch with tortuosity. There are diffuse degenerative changes of the visualized thoracic spine. Normal visualized ribs, clavicles, and shoulders. There is no demonstrated abnormality of the visualized soft tissue structures of the upper abdomen. RAD/Chest 1 View (Portable) IMPRESSION: Degenerative changes, as described above. No demonstrated acute cardiopulmonary process. Electronically Signed: Valente Marcano MD at 11:12 EDT ,
[2023-01-17 11:04] LABS: Absolute Lymphocyte Count 1.66 X10^3/uL (0.83-4.51); Absolute Neutrophil Count 11.5 X10^3/uL (2.0-7.7); Basophil# 0.04 X10^3/uL; Basophil% 0.3 % (0-1); Eosinophil# 0.02 X10^3/uL; Eosinophils% 0.1 % (0-5); Hematocrit 37.3 % (37-47); Hemoglobin 11.5 g/dL (12.0-15.0); Lymphocyte # 1.66 X10^3/ul (0.83-4.51); Lymphocyte % 11.3 % (19-41); Mean Corp Hgb Conc 30.8 g/dL (32-36); Mean Corpuscular Hgb 28.3 pg (27.0-32.0); Mean Corpuscular Volume 91.9 fL (81-99); Monocyte% 9.6 % (0-10); NRBC Flagged by Analyzer 0 % (0-5); Neutrophil # 11.45 X10^3/uL (2.7-7.7); Neutrophil % 78.2 % (47-70); Platelet Count 274 K/mm3 (150-450); RBC Distribution Width CV 14.9 % (11.6-14.6); RBC Distribution Width SD 50.4 fl (35.1-43.9); Red Blood Count 4.06 M/mm3 (4.2-5.4); White Blood Count 14.7 K/mm3 (4.4-11.0)
[2023-01-17 11:24] LABS: Anion Gap 13 (5-15); BUN 37 mg/dL (7-18); BUN/Creat Ratio 21.6 RATIO (10-20); Calcium,Total 9.1 mg/dL (8.5-10.1); Chloride 105 mmol/L (98-107); Creatinine, Serum 1.71 mg/dL (0.55-1.02); EST Glomerular Filtration Rate 31 mL/min (>60); Est Glom Filt Rate - Afr Amer 37 mL/min (>60); Estimated Creatinine Clearance 21.12 ml/min; Glucose 286 mg/dL (74-106); Potassium 3.8 mmol/L (3.5-5.1); Sodium Level 137 mmol/L (136-145); Troponin-I HS 6 pg/mL (3.0-54.0)
[2023-01-17 11:27] LABS: Bacteria 0 SEEN /hpf (None Seen); Color, Urine Yellow (Yellow); Glucose, Dipstick 100 mg/dl (Normal); Ketone-Dipstick 50 mg/dl (Negative); Leukocyte Esterase-Dipstick 500 /ul (Negative); Mucous, Urine 0 SEEN /hpf (<or=2+); Nitrite-Dipstick Negative (Negative); Occult Blood-Urine 250 /ul (Negative); Protein-Dipstick 100 mg/dl (Negative); Red Blood Cells-Urine 0 SEEN /hpf (0-5); Specific Gravity, Urine 1.015 (1.002-1.030); Urine Bilirubin Dipstick Negative (Negative); Urine Clarity Turbid (Clear); Urine Urobilinogen Normal (Normal); White Blood Cells 0 SEEN /hpf (0-5)
[2023-01-17 11:33] LABS: Squamous Epithelial Cells - UA > 100 SEEN /hpf (5-10)
--- NOTE | 2023-01-17 13:23 | HP.PCM.HOS_ITS ---
[facility] - General General Date of Admission: 01/17/23 Date of Service: 01/17/23 Chief Complaint: Weakness/Difficulty with ambulating HPI Narrative LOYDA GARCIA, is a 77 F who presented to see [facility] at [facility] on 01[facility]18[facility] through via EMS after getting frozen and stuck on the toilet. She was unable to get up on her own and her was not able to help her get up either. The patient is overall poor historian. She has a history of Parkinson's disease and reports that she was diagnosed about 3 years ago. She reports that over the last week she is noted a progressive decline in her function. She denies any fever or chills, headache or sinus congestion, nasal drainage, nausea or vomiting, diarrhea or constipation, she has had abdominal pain and states her appetites been fine and she feels her p.o. liquid intake has been normal for her, she denies any coughing, shortness of breath, or chest pain, she also reports no new tingling or numbness. She states when she eats she does not have any coughing she really reports the only issue is she is having decreased ability to be mobile on her own. She is on carbidopa levodopa 3 times daily. Upon my arrival she was resting comfortably with no tremor however when I did awaken her she had significant tremor in bilateral upper extremities. She is agreeable to placement if need be however she would prefer to go home and have therapy at home if possible. Her work-up thus far is overall benign. Temperature was 98.8, heart rates have been anywhere from 98-1 15, blood pressure is 122/72, respiratory rate 16 oxygen saturations are 94 to 97% on room air. Her white count is 14.7 with a hemoglobin of 11.5 (baseline hemoglobin appears to be 8-10) so it does not or that she is mildly dehydrated. Her chemistry panel shows normal electrolytes, her bicarb is slightly low at 19 however BUN and serum creatinine are elevated at 37 and 1.7 respectively (baseline serum creatinine appears to run between 1.25 and 1.50). Her glucose is elevated at 286 and she is a diabetic at [facility]. Her calcium is normal and her troponin is normal. UA is unremarkable for any signs of infection however she does have some protein and glucose in her urine along with ketones and some occult blood. There is leuk esterase however no nitrates no white cells and no bacteria. Chest x-ray is unremarkable. [facility] Medical History Back pain Benign essential hypertension Bladder disease CAD (coronary artery disease) Depression Diabetes Former smoker Generalized anxiety disorder GERD (gastroesophageal reflux disease) High cholesterol History of heart attack HLD (hyperlipidemia) Hypertension Kidney stone Parkinson's disease Parkinson's disease Post-menopausal Thyroid disease TIA (transient ischemic attack) Type II diabetes mellitus Walker as ambulation aid Wears dentures Home Medications levothyroxine 50 mcg tablet 50 mcg PO DAILY 08/20/19 [History Last Taken 01/17/23] lorazepam 0.5 mg tablet 0.5 mg PO QHS 08/20/19 [History Last Taken 01/16/23] metformin 1,000 mg tablet 500 mg PO BID 08/20/19 [History Last Taken 01/17/23] metoprolol tartrate 25 mg tablet 25 mg PO BID 08/20/19 [History Last Taken 01/17/23] simvastatin 20 mg tablet 20 mg PO QHS 08/20/19 [History Last Taken 01/16/23] aspirin 81 mg tablet 81 mg PO DAILY 05/24/22 [History Last Taken 01/17/23] carbidopa 25 mg-levodopa 100 mg tablet 1.5 tab PO TID 05/24/22 [History Last Taken 01/17/23] glipizide 2.5 mg tablet, extended release 24 hr 2.5 mg PO DAILY 05/24/22 [H istory Last Taken 01/17/23] memantine 10 mg tablet 10 mg PO BID 05/24/22 [History Last Taken 01/17/23] risperidone 0.5 mg tablet 0.5 mg PO BID 05/24/22 [History Last Taken 01/17/23] solifenacin 5 mg tablet 5 mg PO DAILY 05/24/22 [History Last Taken Unknown] Allergy/AdvReac Type Severity Reaction Status Date / Time No Known Allergies Allergy Verified 01/17/23 10:09 Family History Mother Heart disease Hypertension Father No problems noted. Surgical History History of cystoscopy History of ureteroscopy Hx of CABG Social History (Updated 01/17/23 @ 13:[address] Adilene Guzman, DO) household members: spouse housing: house Smoking Status: Never smoker alcohol intake: never substance use type: does not use ROS Constitutional Constitutional: Reports weakness; Denies anorexia, change in weight, chills, fatigue, fever(s), malaise, night sweats or other Eyes Eyes: Denies blurry vision, change in eye color, change in vision, discharge from eye(s), double vision, erythema, eye pain, loss of vision or other ENT HEENT: Denies abnormal hearing, dysphagia, ear pain, epistaxis, headache(s), hearing loss, nasal congestion, nasal discharge, post nasal drip, sinus pressure, sore throat or other Cardiovascular Cardiovascular: Denies chest pain, claudication, dyspnea on exertion, edema, lightheadedness, orthopnea, palpitations, paroxysmal nocturnal dyspnea, rapid heart rate, syncope or other Respiratory/Chest Respiratory/Chest: Denies cough, dyspnea, excessive phlegm production, hemoptysis, productive cough, shortness of breath at rest, shortness of breath with exertion, wheezing or other Gastrointestinal Gastrointestinal: Denies abdominal pain, coffee ground emesis, constipation, diarrhea, dyspepsia, hematemesis, hematochezia, loose stools, melena, nausea, vomiting or other Genitourinary Genitourinary: Denies burning urination, difficulty urinating, dysuria, hematuria, nocturia, urinary frequency, urinary hesitancy, urinary incontinence, urinary urgency or other Musculoskeletal Musculoskeletal: Denies arthralgias, back pain, joint pain, joint stiffness, joint swelling, myalgias, neck pain or other Neurologic Neurologic: Reports abnormal gait, tremor(s) and other Details: Generalized weakness ; Denies abnormal speech, confusion, disequilibrium, dizziness, focal weakness, headache(s), numbness, paresthesias, seizure-like activity, seizures, syncope or tingling Psychiatric Psychiatric: Reports depression; Denies anxiety, homicidal ideation, suicidal ideation or other Endocrine Endocrinology: Denies change in body appearance, cold intolerance, excessive sweating, heat intolerance, polydipsia, polyuria or other Hematologic/Lymphatic Hematologic/Lymphatic: Denies anemia, easy bleeding, easy bruising, lymphadenopathy or other Allergic/Immunologic Allergic/Immunologic: Denies rhinitis, hives, eczemia, asthma or other Vital Signs Vital Signs Vital Signs: 01/17/23 10:10 01/17/23 10:15 01/17/23 12:54 Temperature 99.0 F Temperature Source Temporal Pulse Rate 100 98 Respiratory Rate 16 20 H Respiratory Effort Normal Respiratory Pattern Normal Blood Pressure 122/72 H 128/68 H Blood Pressure Mean 88 88 Pulse Ox 194 94 Oxygen Delivery Method Room Air Room Air Weight Weight: 57.2 kg Body Mass Index (BMI) 23.8 Physical Exam Const alert, oriented x3, no apparent distress and well nourished; Negative for average body habitus or healthy appearing Constitutional Narrative: Older white female, lying in bed sleeping but awakens easily, appears older than stated age, appears nontoxic, pleasant but frail General Appearance: cooperative HEENT normocephalic, head/scalp atraumatic, hearing grossly normal bilaterally and moist oral mucous membranes HEENT Narrative: Dentition is 4, Mallampati is 2 thrush, masked facies Eyes PERRL, EOMs intact bilaterally and conjunctivae normal Eyes Narrative: No scleral icterus Neck no lymphadenopathy and supple Neck Narrative: Trachea midline, no thyroid enlargement Resp normal respiratory effort, no retractions, no use of accessory muscles and clear to auscultation bilaterally Auscultation: Negative for rales, rhonchi or wheezes Cardio regular rate, regular rhythm, S1 normal heart sound, S2 normal heart sound, no murmurs, no rub, no gallops and no clicks GI normal to inspection, nondistended, normoactive bowel sounds, soft to palpation and non-tender Extremity no clubbing, cyanosis or edema Extremity Narrative: Pedal pulses are 2+, decreased lean muscle mass Skin no rashes or lesions noted, no wounds, skin turgor normal, no jaundice, no petechiae and no mottling Neuro oriented x3, CN's II-XII intact bilaterally, moves all extremities and no focal motor deficits Neuro Narrative: Bradykinesia, resting tremor, significant generalized weakness with proximal musculature weaker than distal musculature, speech is intelligible but response times are mildly slowed Speech: Negative for speech normal Psych Psych Narrative: Affect is flat Results Lab / Micro Data 01/17/23 10:00 01/17/23 10:00 Labs: Laboratory Results - last 24 hr 01/17/23 10:00: WBC 14.7 H, RBC 4.06 L, Hgb 11.5 L, Hct 37.3, MCV 91.9, MCH 28.3, MCHC 30.8 L, RDW Std Deviation 50.4 H, RDW Coeff of Festus 14.9 H, Plt Count 274, MPV 11.0, Immature Gran % (Auto) 0.500, Neut % (Auto) 78.2 H, Lymph % (Auto) 11.3 L, [place] % (Auto) 9.6, Eos % (Auto) 0.1, Baso % (Auto) 0.3, Absolute Neuts (auto) 11.5 H, Absolute Lymphs (auto) 1.66, Nucleated RBC % 0, Sodium 137, Potassium 3.8, Chloride 105, Carbon Dioxide 19.0 L, Anion Gap 13, BUN 37 H, Creatinine 1.71 H, Estim Creat Clear Calc 21.12, Est GFR (MDRD) Af Amer 37 L, Est GFR (MDRD) Non-Af 31 L, BUN/Creatinine Ratio 21.6 H, Glucose 286 H, Calcium 9.1, Troponin I High Sens 6 01/17/23 11:20: Urine Color Yellow, Urine Clarity Turbid, Urine pH 6.0, Ur Specific [place] 1.015, Urine Protein 100 H, Urine Glucose (UA) 100 H, Urine Ketones 50 H, Urine Occult Blood 250 H, Urine Nitrite Negative, Urine Bilirubin Negative, Urine Urobilinogen Normal, Ur Leukocyte Esterase 500 H, Urine RBC 0 SEEN, Urine WBC 0 SEEN, Ur Squamous Epith Cells > 100 SEEN, Urine Bacteria 0 SEEN, Urine Mucus 0 SEEN Micro: Microbiology 01/17/23 10:40 Nasal Secretion SARS-CoV-2 Antigen (Rapid) - Final Rhythm Strip Rhythm Strip: Sinus Tach Rate: 115 Ectopy: None Radiology Impression Chest X-Ray 01/17/23 10:45 IMPRESSION: Degenerative changes, as described above. No demonstrated acute cardiopulmonary process. Electronically Signed: Valente Marcano MD at 11:12 EDT , Assessment & Plan Assessment/Plan (1) Declining functional status: (2) Debility: (3) Difficulty in walking: (4) Elevated serum creatinine: (5) Generalized weakness: PLAN: Plan Generalized weakness/declining functional status/difficulty walking -Patient becoming more more debility at home -No organic reason found -Does have Parkinson's so this may be a progression of this -PT/OT/speech therapy evaluations -Consult case management and social work as patient may need placement versus home health at discharge depending on progress -Check B12, vitamin D level, TSH, magnesium level, phosphorus level Elevated serum creatinine -Baseline serum creatinine appears to run between 1.25 and 1.5 -Serum creatinine admission is 1.71 -We will run LR at 70 cc/h and repeat BMP in a.m. -Hold home metformin and glipizide Hypothyroidism -Continue home levothyroxine -Check TSH History of recurrent UTIs -No current sign that UTI is present -Monitor clinically Chronic anemia secondary to chronic disease -Iron studies done earlier this year and are consistent with anemia of chronic disease -Hemoglobin appears to be higher than baseline however I suspect she is somewhat hemoconcentrated -IV fluids next-repeat CBC in a.m. DM-2 -Hold home oral agents -cont SSI -Accuchecks -Check hemoglobin A1c CAD/HTN/HPL -Continue metoprolol 25 mg p.o. twice daily -Continue home aspirin -Continue home statin Parkinson's Disease -cont carbadopa/levodopa -suspect progression of this is contributing to her overall decline in functional status Overactive bladder -Was previously on solifenacin but this appears to be on hold now -We will restart and verified Hypothyroidism -cont thyroid replacement Dementia with behavioral disorders -continue memantine -Patient does have significant cerebral atrophy noted on her MRI from 2019 -Continue home risperidone DVT prophylaxis -Enoxaparin 40 daily subcu Code Status -Full Code - Charges/Coding Visit Charges Inpatient E&M: 99234 Init Hosp L2
[2023-01-17 14:16] LABS: Hemoglobin A1c 5.9 % (3.8-5.6)
[2023-01-17] MEDS: Lactated Ringers 1,000 ML 70 ML IV (14:22)
--- NOTE | 2023-01-17 16:39 | CASEMGMT ---
ARIANA HUERTA called , Jeet, to complete WILSON Form as patient is confused. ARIANA HUERTA explained WILSON form to son, son voiced understanding. Jeet provided telephone consent and filed in chart. Patient provided copy of signed WILSON Form. had no further questions or concerns.
[2023-01-17] MEDS: Insulin Lispro 100 UNIT/ML INSULN.PEN SC (16:44)
[2023-01-17] MEDS: Carbidopa/Levodopa 25/100 Tablet PO (16:46)
[2023-01-17 17:06] LABS: Bedside Glucose 243 mg/dL (74-106)
[2023-01-17] MEDS: Acetaminophen 325 MG Tablet 650 MG PO ×2 (17:09→23:09)
--- NOTE | 2023-01-17 17:14 | PCM.HOSP.N ---
Hospitalist Note Patient arrived on the medical floor and I was notified that her temperature was 102.2. Rapid COVID was unremarkable. Chest x-ray was unremarkable. Her urine was not consistent with infection. Review of systems was essentially unremarkable other than generalized weakness. I will get blood cultures and urine culture and check a COVID PCR. Check an MRSA PCR. Start Zosyn IV. If MRSA PCR is positive will start vancomycin. Blood pressure is stable however patient is tachycardic. I suspect the tachycardia is reactive from her temperature.
[2023-01-17 19:35] LABS: M R Staph aureus DNA By PCR Negative (Negative); Probe Check PASS; Specimen Processing Control PASS
[2023-01-17] MEDS: LORazepam 0.5 MG Tablet PO (22:11)
[2023-01-17] MEDS: Metoprolol Tartrate 25 MG Tablet PO (22:11)
[2023-01-17] MEDS: 0.9% Normal Saline (250mL Bag) 250 ML 15 ML IV (22:12)
[2023-01-17] MEDS: Memantine Hydrochloride 10 MG Tablet PO (22:12)
[2023-01-17] MEDS: RisperiDONE 0.5 MG Tablet PO (22:12)
[2023-01-17] MEDS: Piperacil/Tazobactam 3.375 GM in 0.9% Normal Saline (50mL MB+) 50 ML IV (22:12)
[2023-01-17] MEDS: Atorvastatin Calcium 10 MG Tablet PO (22:12)
[2023-01-17 22:39] LABS: Bedside Glucose 191 mg/dL (74-106)
[2023-01-18] MEDS: Lactated Ringers 1,000 ML 70 ML IV (04:57)
[2023-01-18] MEDS: Piperacil/Tazobactam 3.375 GM in 0.9% Normal Saline (50mL MB+) 50 ML IV ×3 (04:58→22:07)
[2023-01-18] MEDS: Enoxaparin 30 MG/0.3 ML Syringe SC (04:58)
[2023-01-18] MEDS: Levothyroxine 50 MCG Tablet PO (04:58)
[2023-01-18 05:11] VITALS: BP 123/52; PULSE 75; RESP 16; TEMP 36.8; O2SAT 100
[2023-01-18] MEDS: Carbidopa/Levodopa 25/100 Tablet PO ×3 (05:58→16:14)
[2023-01-18] MEDS: Insulin Lispro 100 UNIT/ML INSULN.PEN SC ×2 (05:59→11:15)
[2023-01-18 07:05] LABS: Absolute Lymphocyte Count 1.07 X10^3/uL (0.83-4.51); Absolute Neutrophil Count 11.4 X10^3/uL (2.0-7.7); Basophil# 0.03 X10^3/uL; Basophil% 0.2 % (0-1); Eosinophil# 0.02 X10^3/uL; Eosinophils% 0.1 % (0-5); Hematocrit 32.9 % (37-47); Hemoglobin 10.1 g/dL (12.0-15.0); Lymphocyte # 1.07 X10^3/ul (0.83-4.51); Lymphocyte % 7.8 % (19-41); Mean Corp Hgb Conc 30.7 g/dL (32-36); Mean Corpuscular Hgb 28.2 pg (27.0-32.0); Mean Corpuscular Volume 91.9 fL (81-99); Mean Platelet Vol. 10.8 fl (6.2-12.0); Monocyte# 1.09 X10^3/uL; Monocyte% 7.9 % (0-10); NRBC Flagged by Analyzer 0 % (0-5); Neutrophil # 11.42 X10^3/uL (2.7-7.7); Neutrophil % 83.3 % (47-70); Platelet Count 211 K/mm3 (150-450); RBC Distribution Width CV 14.8 % (11.6-14.6); RBC Distribution Width SD 50.3 fl (35.1-43.9); Red Blood Count 3.58 M/mm3 (4.2-5.4); White Blood Count 13.7 K/mm3 (4.4-11.0)
[2023-01-18 07:14] LABS: Bedside Glucose 177 mg/dL (74-106)
--- NOTE | 2023-01-18 07:27 | PN.HOSP_ITS ---
Reason for Visit Reason for Visit: Diagnoses Difficulty in walking, not elsewhere classified (01/17/23) Weakness (01/17/23) Other malaise (01/17/23) Other specified abnormal findings of blood chemistry (01/17/23) Subjective Subjective Reports she is feeling slightly better than yesterday, patient has no focal complaints Objective Data Objective Data Vital Signs: Vital Signs Temp Pulse Resp BP Pulse Ox O2 Del Method O2 Flow Rate 98.3 F 75 16 123/52 H 100 Nasal Cannula 2 01/18/23 05:11 01/18/23 05:11 01/18/23 05:11 01/18/23 05:11 01/18/23 05:11 01/18/23 05:11 01/18/23 05:11 Oxygen Flow Rate (L/min) 2 Oxygen Delivery Method Nasal Cannula Weight: 59.562 kg Body Mass Index (BMI) 24.7 Intake & Output: Intake and Output for Last 24 Hours 01/16/23 01/17/23 01/18/23 23:59 23:59 23:59 Intake Total 1598.33 / 1598.33 539 / 539 Output Total 650 / 650 Balance 1598.33 / 1598.33 -111 / -111 Lab / Micro Data 01/18/23 06:24 01/18/23 06:24 Labs: Laboratory Results - last 24 hr 01/17/23 10:00: WBC 14.7 H, RBC 4.06 L, Hgb 11.5 L, Hct 37.3, MCV 91.9, MCH 28.3, MCHC 30.8 L, RDW Std Deviation 50.4 H, RDW Coeff of Festus 14.9 H, Plt Count 274, MPV 11.0, Immature Gran % (Auto) 0.500, Neut % (Auto) 78.2 H, Lymph % (Auto) 11.3 L, [place] % (Auto) 9.6, Eos % (Auto) 0.1, Baso % (Auto) 0.3, Absolute Neuts (auto) 11.5 H, Absolute Lymphs (auto) 1.66, Nucleated RBC % 0, Sodium 137, Potassium 3.8, Chloride 105, Carbon Dioxide 19.0 L, Anion Gap 13, BUN 37 H, Creatinine 1.71 H, Estim Creat Clear Calc 21.12, Est GFR (MDRD) Af Amer 37 L, Est GFR (MDRD) Non-Af 31 L, BUN/Creatinine Ratio 21.6 H, Glucose 286 H, Calcium 9.1, Troponin I High Sens 6 01/17/23 11:20: Urine Color Yellow, Urine Clarity Turbid, Urine pH 6.0, Ur Specific [place] 1.015, Urine Protein 100 H, Urine Glucose (UA) 100 H, Urine Ketones 50 H, Urine Occult Blood 250 H, Urine Nitrite Negative, Urine Bilirubin Negative, Urine Urobilinogen Normal, Ur Leukocyte Esterase 500 H, Urine RBC 0 SEEN, Urine WBC 0 SEEN, Ur Squamous Epith Cells > 100 SEEN, Urine Bacteria 0 SEEN, Urine Mucus 0 SEEN 01/17/23 12:30: Hemoglobin A1c 5.9 H 01/17/23 16:38: POC Glucose 243 H 01/17/23 18:05: MRSA (PCR) Negative 01/17/23 21:49: POC Glucose 191 H 01/18/23 05:46: POC Glucose 177 H 01/18/23 06:24: WBC 13.7 H, RBC 3.58 L, Hgb 10.1 L, Hct 32.9 L, MCV 91.9, MCH 28.2, MCHC 30.7 L, RDW Std Deviation 50.3 H, RDW Coeff of [place]us 14.8 H, Plt Count 211, MPV 10.8, Immature Gran % (Auto) 0.700, Neut % (Auto) 83.3 H, Lymph % (Auto) 7.8 L, [place] % (Auto) 7.9, Eos % (Auto) 0.1, Baso % (Auto) 0.2, Absolute Neuts (auto) 11.4 H, Absolute Lymphs (auto) 1.07, Nucleated RBC % 0 Micro: Microbiology 01/17/23 17:39 Mucosa - Nasopharyngeal Coronavirus COVID-19 PCR - Final 01/17/23 10:40 Nasal Secretion SARS-CoV-2 Antigen (Rapid) - Final Radiography Diagnostic Testing: Radiology Impression Chest X-Ray 01/17/23 10:45 IMPRESSION: Degenerative changes, as described above. No demonstrated acute cardiopulmonary process. Electronically Signed: Valente Marcano MD at 11:12 EDT Reading Location ID and State: [facility] / [place] , Service support , Rhythm Strip Rhythm Strip: Sinus Tach Rate: 115 Ectopy: None Physical Exam Narrative General: Alert, no apparent distress HEENT: Atraumatic Eyes: Anicteric, normal conjunctiva Neck: Supple Respiratory: Clear to auscultation bilaterally, normal respiratory effort Cardiovascular: Regular rate GI: Soft, nontender, nondistended Extremities: No edema Musculoskeletal: Moving all extremities Neuro: No overt focal neurological deficits but does have resting tremor noted Skin: No rashes appreciated Psych: Cooperative Assessment & Plan Assessment/Plan (1) Declining functional status: (2) Debility: (3) Difficulty in walking: (4) Elevated serum creatinine: (5) Generalized weakness: PLAN: Plan #Generalized weakness/declining functional status/difficulty walking -Patient becoming more more debility at home -No organic reason found -Does have Parkinson's so this may be a progression of this -PT/OT/speech therapy evaluations -Consult case management and social work as patient may need placement versus home health at discharge depending on progress -Check B12, vitamin D level, TSH, magnesium level, phosphorus level -01/18: Possibly secondary to underlying infection in part, cultures pending, no localizing signs or symptoms of infection however patient with fever 102, started on empiric antibiotics #Febrile -temp 102.2 -cx pending -empiric broad spectrum abx Elevated serum creatinine -Baseline serum creatinine appears to run between 1.25 and 1.5 -Serum creatinine admission is 1.71 -We will run LR at 70 cc/h and repeat BMP in a.m. -Hold home metformin and glipizide -01/18: Suspect YAMILEX on CKDIIIb. Creatinine 1.74 today despite fluids though BUN decreased, will get retroperitoneal ultrasound, of note she did have one on 12/23 which showed bilateral hydronephrosis, if this is worsened may need further inv estigation Hypothyroidism -Continue home levothyroxine -Check TSH -01/18: TSH within normal limits History of recurrent UTIs -No current sign that UTI is present -Monitor clinically Chronic anemia secondary to chronic disease -Iron studies done earlier this year and are consistent with anemia of chronic disease -Hemoglobin appears to be higher than baseline however I suspect she is somewhat hemoconcentrated -IV fluids next-repeat CBC in a.m. -01/18: Hemoglobin 10.1, has quite variable baseline, suspect that this is dil utional DM-2 -Hold home oral agents -cont SSI -Accuchecks -Check hemoglobin A1c -01/18: A1c 5.9 CAD/HTN/HPL -Continue metoprolol 25 mg p.o. twice daily -Continue home aspirin -Continue home statin Parkinson's Disease -cont carbadopa/levodopa -suspect progression of this is contributing to her overall decline in functional status -01/18: PT/OT Overactive bladder -Was previously on solifenacin but this appears to be on hold now -We will restart and verified Dementia with behavioral disorders -continue memantine -Patient does have significant cerebral atrophy noted on her MRI from 2019 -Continue home risperidone DVT prophylaxis -Enoxaparin 40 daily subcu Time spent in the patient's overall evaluation,decision-making process, review of diagnostic data, adjustment of management, discussion with other providers, nursing nursing and ancillary staff involved in patient's care documentation, 36 Minutes Charges/Coding Visit Charges Inpatient E&M: 18725 Subs Hosp L2
[2023-01-18 07:54] LABS: ALB/GLOB Ratio 0.6 RATIO (0.9-2.4); AST(SGOT) 19 U/L (15-37); Alanine Aminotransfer ALT/SGPT < 6 U/L (13-56); Albumin, Serum 2.5 g/dL (3.2-5.0); Alkaline Phosphatase 62 U/L (45-117); Anion Gap 6 (5-15); BUN 29 mg/dL (7-18); BUN/Creat Ratio 16.7 RATIO (10-20); Calcium,Total 8.5 mg/dL (8.5-10.1); Chloride 108 mmol/L (98-107); Creatinine, Serum 1.74 mg/dL (0.55-1.02); EST Glomerular Filtration Rate 30 mL/min (>60); Est Glom Filt Rate - Afr Amer 37 mL/min (>60); Estimated Creatinine Clearance 20.76 ml/min; Globulin 4.3 g/dL (2.2-4.2); Glucose 181 mg/dL (74-106); Magnesium 2.1 mg/dL (1.6-2.6); Phosphorus 3.1 mg/dL (2.5-4.9); Potassium 3.9 mmol/L (3.5-5.1); Protein, Total 6.8 g/dL (6.4-8.2); Sodium Level 139 mmol/L (136-145)
[2023-01-18 09:17] VITALS: PULSE 103
[2023-01-18] MEDS: Memantine Hydrochloride 10 MG Tablet PO ×2 (09:17→22:07)
[2023-01-18] MEDS: Metoprolol Tartrate 25 MG Tablet PO ×2 (09:17→22:08)
[2023-01-18] MEDS: RisperiDONE 0.5 MG Tablet PO ×2 (09:17→22:07)
[2023-01-18] MEDS: Aspirin 81 MG TAB.CHEW PO (09:18)
--- NOTE | 2023-01-18 09:22 | US_ITS ---
HISTORY: Worsening kidney function. TECHNIQUE: Delcid scale and color doppler images were obtained of the kidneys. 58 images. COMPARISON: 12/23/2022. FINDINGS: RIGHT KIDNEY: 11.4 cm in length with a cortical thickness of 1.6 cm. Echogenicity unremarkable. Mild hydronephrosis. No gross renal mass demonstrated. LEFT KIDNEY: 9.8 cm in length with a cortical thickness of 1.4 cm. Echogenicity unremarkable. Moderate hydronephrosis. No gross renal mass demonstrated. URINARY BLADDER: Nearly empty at 14 cc with a wall thickness of 2 mm. Bilateral ureteral jets visualized. US/Kidney and Bladder IMPRESSION: Left greater than right hydronephrosis, mildly decreased from prior. Electronically Signed: Kathy Keenan MD at 15:12 EDT ,
[2023-01-18 09:27] VITALS: BP 112/63; PULSE 103; RESP 18; TEMP 37.2; O2SAT 95
[2023-01-18 11:36] LABS: Bedside Glucose 183 mg/dL (74-106)
[2023-01-18 14:00] VITALS: BP 100/48; PULSE 72; RESP 18; TEMP 37.7; O2SAT 97
[2023-01-18 16:34] LABS: Bedside Glucose 145 mg/dL (74-106)
[2023-01-18 20:05] VITALS: BP 102/54; PULSE 76; RESP 16; TEMP 38.1; O2SAT 97
[2023-01-18] MEDS: Acetaminophen 325 MG Tablet 650 MG PO (22:07)
[2023-01-18] MEDS: Atorvastatin Calcium 10 MG Tablet PO (22:07)
[2023-01-18 22:08] VITALS: PULSE 76
[2023-01-18] MEDS: LORazepam 0.5 MG Tablet PO (22:08)
[2023-01-18 22:51] LABS: Bedside Glucose 139 mg/dL (74-106)
[2023-01-19] VITALS (9 sets, daily range): BP systolic 92–121; BP diastolic 51–61; PULSE 54–79; RESP 16; TEMP 36.6–37.7; O2SAT 95–97
[2023-01-19] MEDS: Piperacil/Tazobactam 3.375 GM in 0.9% Normal Saline (50mL MB+) 50 ML IV (05:04)
[2023-01-19] MEDS: Enoxaparin 30 MG/0.3 ML Syringe SC (05:04)
[2023-01-19] MEDS: Levothyroxine 50 MCG Tablet PO (05:05)
[2023-01-19 05:10] LABS: Basophil# 0.03 X10^3/uL; Basophil% 0.3 % (0-1); Eosinophil# 0.31 X10^3/uL; Hematocrit 30.9 % (37-47); Hemoglobin 9.6 g/dL (12.0-15.0); Lymphocyte % 11.5 % (19-41); Mean Corp Hgb Conc 31.1 g/dL (32-36); Mean Corpuscular Hgb 28.6 pg (27.0-32.0); Mean Platelet Vol. 10.5 fl (6.2-12.0); Monocyte% 8.6 % (0-10); NRBC Flagged by Analyzer 0 % (0-5); Neutrophil # 7.97 X10^3/uL (2.7-7.7); Platelet Count 197 K/mm3 (150-450); RBC Distribution Width CV 14.8 % (11.6-14.6); RBC Distribution Width SD 49.9 fl (35.1-43.9); Red Blood Count 3.36 M/mm3 (4.2-5.4); White Blood Count 10.5 K/mm3 (4.4-11.0)
[2023-01-19 05:52] LABS: Bedside Glucose 138 mg/dL (74-106)
[2023-01-19 06:05] LABS: Anion Gap 5 (5-15); BUN 31 mg/dL (7-18); BUN/Creat Ratio 16.8 RATIO (10-20); Calcium,Total 8.5 mg/dL (8.5-10.1); Chloride 109 mmol/L (98-107); Creatinine, Serum 1.84 mg/dL (0.55-1.02); EST Glomerular Filtration Rate 28 mL/min (>60); Est Glom Filt Rate - Afr Amer 34 mL/min (>60); Estimated Creatinine Clearance 19.63 ml/min; Glucose 144 mg/dL (74-106); Potassium 3.8 mmol/L (3.5-5.1); Sodium Level 140 mmol/L (136-145)
[2023-01-19] MEDS: Carbidopa/Levodopa 25/100 Tablet PO ×3 (06:14→15:55)
[2023-01-19] MEDS: Acetaminophen 325 MG Tablet 650 MG PO (07:43)
[2023-01-19] MEDS: Aspirin 81 MG TAB.CHEW PO (07:44)
[2023-01-19] MEDS: Memantine Hydrochloride 10 MG Tablet PO ×2 (07:44→22:09)
[2023-01-19] MEDS: Metoprolol Tartrate 25 MG Tablet PO ×2 (07:44→22:09)
[2023-01-19] MEDS: RisperiDONE 0.5 MG Tablet PO ×2 (07:45→22:09)
--- NOTE | 2023-01-19 07:51 | PN.HOSP_ITS ---
Reason for Visit Reason for Visit: Diagnoses Difficulty in walking, not elsewhere classified (01/17/23) Weakness (01/17/23) Other malaise (01/17/23) Other specified abnormal findings of blood chemistry (01/17/23) Subjective Subjective 77-year-old lady admitted with progressive generalized weakness diagnosed with acute cystitis Objective Data Objective Data Vital Signs: Vital Signs Temp Pulse Resp BP Pulse Ox O2 Del Method O2 Flow Rate 99.8 F H 66 16 121/61 H 95 Room Air 2 01/19/23 05:01 01/19/23 07:44 01/19/23 05:01 01/19/23 05:01 01/19/23 05:01 01/19/23 05:01 01/18/23 05:11 Oxygen Flow Rate (L/min) 2 Oxygen Delivery Method Room Air Weight: 59.562 kg Body Mass Index (BMI) 24.7 Intake & Output: Intake and Output for Last 24 Hours 01/17/23 01/18/23 01/19/23 23:59 23:59 23:59 Intake Total 1598.33 / 1598.33 1568.33 / 1568.33 250 / 250 Output Total 1075 / 1075 400 / 400 Balance 1598.33 / 1598.33 493.33 / 493.33 -150 / -150 Lab / Micro Data 01/19/23 04:47 01/19/23 04:47 Labs: Laboratory Results - last 24 hr 01/18/23 06:24: Sodium 139, Potassium 3.9, Chloride 108 H, Carbon Dioxide 25.0, Anion Gap 6, BUN 29 H, Creatinine 1.74 H, Estim Creat Clear Calc 20.76, Est GFR (MDRD) Af Amer 37 L, Est GFR (MDRD) Non-Af 30 L, BUN/Creatinine Ratio 16.7, Glucose 181 H, Calcium 8.5, Phosphorus 3.1, Magnesium 2.1, Total Bilirubin 1.00, AST 19, ALT < 6 L, Alkaline Phosphatase 62, Total Protein 6.8, Albumin 2.5 L, Globulin 4.3 H, Albumin/Globulin Ratio 0.6 L, TSH 1.10 01/18/23 11:13: POC Glucose 183 H 01/18/23 16:12: POC Glucose 145 H 01/18/23 22:12: POC Glucose 139 H 01/19/23 04:47: WBC 10.5, RBC 3.36 L, Hgb 9.6 L, Hct 30.9 L, MCV 92.0, MCH 28.6, MCHC 31.1 L, RDW Std Deviation 49.9 H, RDW Coeff of Festus 14.8 H, Plt Count 197, MPV 10.5, Immature Gran % (Auto) 0.600, Neut % (Auto) 76.0 H, Lymph % (Auto) 11.5 L, [place] % (Auto) 8.6, Eos % (Auto) 3.0, Baso % (Auto) 0.3, Absolute Neuts (auto) 8.0 H, Absolute Lymphs (auto) 1.20, Nucleated RBC % 0, Sodium 140, Potassium 3.8, Chloride 109 H, Carbon Dioxide 26.0, Anion Gap 5, BUN 31 H, Creatinine 1.84 H, Estim Creat Clear Calc 19.63, Est GFR (MDRD) Af Amer 34 L, Est GFR (MDRD) Non-Af 28 L, BUN/Creatinine Ratio 16.8, Glucose 144 H, Calcium 8.5 01/19/23 05:09: POC Glucose 138 H Micro: Microbiology 01/17/23 11:20 Urine, Clean Catch Urine Culture - Final Enterobacter cloacae complex 01/17/23 17:35 Blood Culture (Wb) - Anticubital Right Blood Culture - Preliminary 01/17/23 17:39 Mucosa - Nasopharyngeal Coronavirus COVID-19 PCR - Final 01/17/23 10:40 Nasal Secretion SARS-CoV-2 Antigen (Rapid) - Final Radiography Diagnostic Testing: Radiology Impression Renal Ultrasound 01/18/23 09:22 IMPRESSION: Left greater than right hydronephrosis, mildly decreased from prior. Electronically Signed: Kathy Keenan MD at 15:12 EDT , Rhythm Strip Rhythm Strip: Sinus Tach Rate: 115 Ectopy: None Physical Exam Narrative GENERAL: Flat affect HEENT: Atraumatic; normocephalic EYES; Anicteric, Normal Conjunctiva NECK; supple, normal thyroid, RESPIRATORY: Diminished to auscultation CARDIOVASCULAR: Regular S1 S2, GI: soft, normoactive bowel sounds, : No Renal angle tenderness; EXTREMITIES: No edema, no clubbing, MUSCULOSKELETAL: no muscle wasting NEURO: Awake; no lateralizing signs. SKIN: No Rash PSYCH; Flat affect Assessment & Plan Assessment/Plan (1) Declining functional status: (2) Debility: (3) Difficulty in walking: (4) Elevated serum creatinine: (5) Generalized weakness: PLAN: Plan 77-year-old lady admitted with progressive generalized weakness diagnosed with acute cystitis 1. Acute cystitis Urine cultures grew Enterobacter cloacae complex currently on Zosyn de-escalated to ciprofloxacin 2. Physical deconditioning - Requested for PT OT eval and social media marketing specialist to assist with discharge planning 3. Chronic kidney disease stage IIIb ? Patient kidney function fluctuated between 1.6-2.0 monitoring with daily BMPs 4. Hypothyroidism - Patient is on levothyroxine home dose continued 5. History of recurrent UTIs ? Patient presented with generalized weakness was found to have UTI grew Enterobacter cloacae 6. Anemia - Secondary to chronic disorder monitoring H&H and transfuse if patient becomes symptomatic or hemoglobin falls below 7 7. Diabetes mellitus type II -patient's oral hypoglycemics held. Placed on long acting insulin, Accu-Cheks a.c. and at bedtime and covered with sliding scale insulin 8. Hypertension - Blood pressure controlled, home medications continued with dose adjustment as needed 9. Parkinson's disease ? Patient is on Sinemet did continue 10. Dyslipidemia -Patient is on statin therapy, continued at home dose 11. Coronary artery disease ? Per history patient is on guideline directed medical therapy 12. Overactive bladder on solifenaci 13. Dementia with behavioral disorders -continue memantine;Patient does have significant cerebral atrophy noted on her MRI from 2019, -Continue home risperidone 14. DVT prophylaxis ? SC Lovenox Time spent in the patient's overall evaluation,decision-making process, review of diagnostic data, adjustment of management, discussion with other providers, nursing nursing and ancillary staff involved in patient's care documentation, 35 Minutes Charges/Coding Visit Charges Inpatient E&M: 33792 Subs Hosp L2
[2023-01-19 09:48] LABS: Vitamin D,25 Hydroxy 23.5 ng/mL
[2023-01-19 09:50] LABS: Vitamin B12 254 pg/mL (211-911)
[2023-01-19] MEDS: Insulin Lispro 100 UNIT/ML INSULN.PEN SC ×2 (11:16→15:54)
[2023-01-19] MEDS: Ciprofloxacin 250 MG Tablet PO ×2 (11:17→22:09)
[2023-01-19 11:38] LABS: Bedside Glucose 183 mg/dL (74-106)
--- NOTE | 2023-01-19 11:54 | CASEMGMT ---
Discharge Planning A list of?SNF?providers including quality and resource use data and consistent with the patient's preferred geographic region, medical needs, and insurance network was created in [facility] Guide.? This list was provided to the SW. Shirley Perry, Discharge Planning Asst.
--- NOTE | 2023-01-19 12:35 | CASEMGMT ---
Addendum entered by Adilene Jolly 01/19/23 16:46: SW met with patient and patient's and introduced self and role as [facility] SW. SW engaged patient and patient's in conversation regarding d/c plan and recommendation for additional therapy. Patient's reports patient is active with [facility] and has two RNs coming in twice a week. Patient's explained he assists with ADLs and would be comfortable with patient returning home if she can go to the restroom independently. Patient's recalls patient having a similar experience and was able to ambulate before she left the hospital because the issue resolved. Patient's is hopeful she will have a similar experience. SW encouraged patient's to be present tomorrow when patient works with therapy to better understand his needs. Patient's reports he has a 3pm doctor's appointment and will try to come in tomorrow. SW to contact him when therapy time is known. RN updated of plan. Plan: YING Mojica Original Note: Social Work SW met with patient and introduced self and role as [facility] SW. Patient seated in chair and agreeable to speak with SW. SW engaged patient in conversation regarding recommendations for SNF. SW attempted to provide list of SNFs in network with insurance to inquire about patient's preference, however, patient requested SW discuss list with patient's . SW contacted patient's and left a VM requesting a return phone call. Plan: YING Mojica
[2023-01-19 16:16] LABS: Bedside Glucose 278 mg/dL (74-106)
[2023-01-19] MEDS: LORazepam 0.5 MG Tablet PO (22:08)
[2023-01-19] MEDS: Atorvastatin Calcium 10 MG Tablet PO (22:09)
[2023-01-19 22:23] LABS: Bedside Glucose 234 mg/dL (74-106)
[2023-01-20] VITALS (9 sets, daily range): BP systolic 104–120; BP diastolic 45–66; PULSE 55–74; RESP 16–18; TEMP 36.3–37.7; O2SAT 95–98
[2023-01-20] MEDS: Acetaminophen 325 MG Tablet 650 MG PO ×2 (03:49→15:30)
[2023-01-20] MEDS: Enoxaparin 30 MG/0.3 ML Syringe SC (06:26)
[2023-01-20] MEDS: Levothyroxine 50 MCG Tablet PO (06:26)
[2023-01-20] MEDS: Insulin Lispro 100 UNIT/ML INSULN.PEN SC ×4 (06:30→23:07)
[2023-01-20] MEDS: Carbidopa/Levodopa 25/100 Tablet PO ×3 (06:30→15:30)
[2023-01-20 06:55] LABS: Bedside Glucose 188 mg/dL (74-106)
[2023-01-20 07:05] LABS: Absolute Lymphocyte Count 1.46 X10^3/uL (0.83-4.51); Absolute Neutrophil Count 5.1 X10^3/uL (2.0-7.7); Basophil# 0.02 X10^3/uL; Basophil% 0.3 % (0-1); Eosinophil# 0.28 X10^3/uL; Eosinophils% 3.7 % (0-5); Hematocrit 28.8 % (37-47); Lymphocyte # 1.46 X10^3/ul (0.83-4.51); Lymphocyte % 19.1 % (19-41); Mean Corp Hgb Conc 31.3 g/dL (32-36); Mean Corpuscular Hgb 28.3 pg (27.0-32.0); Mean Corpuscular Volume 90.6 fL (81-99); Mean Platelet Vol. 10.6 fl (6.2-12.0); Monocyte# 0.76 X10^3/uL; NRBC Flagged by Analyzer 0 % (0-5); Neutrophil # 5.06 X10^3/uL (2.7-7.7); Neutrophil % 66.2 % (47-70); Platelet Count 210 K/mm3 (150-450); RBC Distribution Width CV 14.6 % (11.6-14.6); RBC Distribution Width SD 49.9 fl (35.1-43.9); Red Blood Count 3.18 M/mm3 (4.2-5.4); White Blood Count 7.6 K/mm3 (4.4-11.0)
--- NOTE | 2023-01-20 07:25 | PCM.PN.HOSP ---
Reason for Visit Reason for Visit: Diagnoses Difficulty in walking, not elsewhere classified (01/17/23) Weakness (01/17/23) Other malaise (01/17/23) Other specified abnormal findings of blood chemistry (01/17/23) Subjective Subjective Seen hardly interactive. Objective Data Objective Data Vital Signs: Vital Signs Temp Pulse Resp BP Pulse Ox O2 Del Method O2 Flow Rate 99 F 64 16 120/66 96 Room Air 2 01/20/23 05:36 01/20/23 03:40 01/20/23 03:40 01/20/23 03:40 01/20/23 03:40 01/20/23 03:40 01/18/23 05:11 Oxygen Flow Rate (L/min) 2 Oxygen Delivery Method Room Air Weight: 59.562 kg Body Mass Index (BMI) 24.7 Intake & Output: Intake and Output for Last 24 Hours 01/18/23 01/19/23 01/20/23 23:59 23:59 23:59 Intake Total 1568.33 / 1568.33 528 / 528 Output Total 1075 / 1075 950 / 950 600 / 600 Balance 493.33 / 493.33 -422 / -422 -600 / -600 Lab / Micro Data 01/20/23 06:40 01/20/23 06:40 Labs: Laboratory Results - last 24 hr 01/18/23 06:24: Vitamin B12 254, Vitamin D 25-Hydroxy 23.5 01/19/23 11:14: POC Glucose 183 H 01/19/23 15:54: POC Glucose 278 H 01/19/23 22:01: POC Glucose 234 H 01/20/23 06:29: POC Glucose 188 H 01/20/23 06:40: WBC 7.6, RBC 3.18 L, Hgb 9.0 L, Hct 28.8 L, MCV 90.6, MCH 28.3, MCHC 31.3 L, RDW Std Deviation 49.9 H, RDW Coeff of Festus 14.6, Plt Count 210, MPV 10.6, Immature Gran % (Auto) 0.700, Neut % (Auto) 66.2, Lymph % (Auto) 19.1, [place] % (Auto) 10.0, Eos % (Auto) 3.7, Baso % (Auto) 0.3, Absolute Neuts (auto) 5.1, Absolute Lymphs (auto) 1.46, Nucleated RBC % 0 Micro: Microbiology 01/17/23 17:42 Blood Culture (Wb) - Anticubital Left Blood Culture - Preliminary No growth in 48 hours. 01/17/23 17:35 Blood Culture (Wb) - Anticubital Right Blood Culture - Preliminary 01/17/23 11:20 Urine, Clean Catch Urine Culture - Final Enterobacter cloacae complex 01/17/23 17:39 Mucosa - Nasopharyngeal Coronavirus COVID-19 PCR - Final 01/17/23 10:40 Nasal Secretion SARS-CoV-2 Antigen (Rapid) - Final Rhythm Strip Rhythm Strip: Sinus Tach Rate: 115 Ectopy: None Physical Exam Narrative GENERAL: Flat affect HEENT: Atraumatic; normocephalic EYES; Anicteric, Normal Conjunctiva NECK; supple, normal thyroid, RESPIRATORY: Diminished to auscultation CARDIOVASCULAR: Regular S1 S2, GI: soft, normoactive bowel sounds, : No Renal angle tenderness; EXTREMITIES: No edema, no clubbing, MUSCULOSKELETAL: no muscle wasting NEURO: Awake; no lateralizing signs. SKIN: No Rash PSYCH; Flat affect Assessment & Plan Assessment/Plan (1) Declining functional status: PLAN: Plan 77-year-old lady admitted with progressive generalized weakness diagnosed with acute cystitis 1. Acute cystitis Urine cultures grew Enterobacter cloacae complex currently on Zosyn de-escalated to ciprofloxacin ? 01/20/2023 patient has tolerated antibiotic therapy well so far 2. Physical deconditioning - Requested for PT OT eval and neonatal social worker to assist with discharge planning 3. Chronic kidney disease stage IIIb ? Patient kidney function fluctuated between 1.6-2.0 monitoring with daily BMPs 4. Hypothyroidism - Patient is on levothyroxine home dose continued 5. History of recurrent UTIs ? Patient presented with generalized weakness was found to have UTI grew Enterobacter cloacae 6. Anemia - Secondary to chronic disorder monitoring H&H and transfuse if patient becomes symptomatic or hemoglobin falls below 7 7. Diabetes mellitus type II -patient's oral hypoglycemics held. Placed on long acting insulin, Accu-Cheks a.c. and at bedtime and covered with sliding scale insulin 8. Hypertension - Blood pressure controlled, home medications continued with dose adjustment as needed 9. Parkinson's disease ? Patient is on Sinemet did continue 10. Dyslipidemia -Patient is on statin therapy, continued at home dose 11. Coronary artery disease ? Per history patient is on guideline directed medical therapy 12. Overactive bladder on solifenaci 13. Dementia with behavioral disorders -continue memantine;Patient does have significant cerebral atrophy noted on her MRI from 2019, -Continue home risperidone 14. DVT prophylaxis ? SC Lovenox Time spent in the patient's overall evaluation,decision-making process, review of diagnostic data, adjustment of management, discussion with other providers, nursing nursing and ancillary staff involved in patient's care documentation, 35 Minutes Charges/Coding Visit Charges Inpatient E&M: 85138 Subs Hosp L2
[2023-01-20 07:35] LABS: Anion Gap 4 (5-15); BUN 32 mg/dL (7-18); BUN/Creat Ratio 17.3 RATIO (10-20); Calcium,Total 8.4 mg/dL (8.5-10.1); Chloride 108 mmol/L (98-107); Creatinine, Serum 1.85 mg/dL (0.55-1.02); EST Glomerular Filtration Rate 28 mL/min (>60); Est Glom Filt Rate - Afr Amer 34 mL/min (>60); Estimated Creatinine Clearance 19.52 ml/min; Glucose 197 mg/dL (74-106); Potassium 3.8 mmol/L (3.5-5.1); Sodium Level 138 mmol/L (136-145)
[2023-01-20] MEDS: Aspirin 81 MG TAB.CHEW PO (08:15)
[2023-01-20] MEDS: RisperiDONE 0.5 MG Tablet PO ×2 (08:15→22:08)
[2023-01-20] MEDS: Ciprofloxacin 250 MG Tablet PO ×2 (08:15→22:06)
[2023-01-20] MEDS: Metoprolol Tartrate 25 MG Tablet PO (08:15)
[2023-01-20] MEDS: Memantine Hydrochloride 10 MG Tablet PO ×2 (08:15→22:07)
[2023-01-20 12:11] LABS: Bedside Glucose 186 mg/dL (74-106)
--- NOTE | 2023-01-20 13:56 | CHAPLAIN ---
Type of Pastoral Visit _x__ Initial Visit ___ Follow-up Visit ___ On-call Visit ___ General Patient Visit ___ Spiritual Assessment ___ Family Conference ___ Bereavement ___ Rapid Response ___ Code Blue ___ Other (describe below) Pastoral Care Referral From _x__ Patient ___ Family ___ Nurse ___ Physician ___ Digital Photographer ___ Web Services Architect ___ Other (describe below) Sacrament/Intervention _x__ Active listening ___ Anointing ___ Yazidism ___ Bereavement ___ Communion _x__ Debora exploration ___ ___ Life review _x__ Prayer ___ Reconciliation ___ Sacrament of Sick _x__ Supportive presence ___ Wedding ___ Other (describe below) Pastoral Comments patient states that I am not doing so good and relates to seeing snakes in her room, feeling very weak, and scared; pt acknowledges that feelings of fright are from the snakes she sees; talked through her safety and the absence of any snakes in the room and pt stated that she felt better about that now; pt speaks of prayer and this machine shop supervisor gives reassurance of God's care for her and begins to quote Psalm 23 to her; pt recites Psalm 23 with this machine shop supervisor and has a few tears; prayer is given along with more assurance of good care and provision for her needs; pt is expressive of thanks for the visit and the support
--- NOTE | 2023-01-20 14:30 | CASEMGMT ---
Social Work SW left VM with patient's regarding patient's engagement in therapy. SW met with patient to review progress with therapy. Patient continuing to decline SNF explaining she has enough support at home between her and RNs. SW inquired if patient's would be coming in today, patient unsure. SW updated RN CM patient wants to D/C and continue HHC. RN CM to further discuss with MD and pt. Plan: RN CM to assist with plan, likely home with family support and resuming HHC Adilene HYLTON, YING
[2023-01-20 15:54] LABS: Bedside Glucose 227 mg/dL (74-106)
--- NOTE | 2023-01-20 16:00 | PCM.DC.SUM ---
Providers Date of Admission: 01/17/23 Date of Discharge: 01/21/23 Primary Care Physician: Dr. Dannielle John MD Reason For Visit: DEHYDRATION/DEBILITY Diagnosis Discharge Diagnosis (1) Declining functional status: Status: Acute Code(s): R53.81 - Other malaise Plan 77-year-old lady admitted with progressive generalized weakness diagnosed with acute cystitis 1. Acute cystitis Urine cultures grew Enterobacter cloacae complex currently on Zosyn de-escalated to ciprofloxacin ? 01/20/2023 patient has tolerated antibiotic therapy well so far 2. Physical deconditioning - Requested for PT OT eval and social services manager to assist with discharge planning 3. Chronic kidney disease stage IIIb ? Patient kidney function fluctuated between 1.6-2.0 monitoring with daily BMPs 4. Hypothyroidism - Patient is on levothyroxine home dose continued 5. History of recurrent UTIs ? Patient presented with generalized weakness was found to have UTI grew Enterobacter cloacae 6. Anemia - Secondary to chronic disorder monitoring H&H and transfuse if patient becomes symptomatic or hemoglobin falls below 7 7. Diabetes mellitus type II -patient's oral hypoglycemics held. Placed on long acting insulin, Accu-Cheks a.c. and at bedtime and covered with sliding scale insulin 8. Hypertension - Blood pressure controlled, home medications continued with dose adjustment as needed 9. Parkinson's disease ? Patient is on Sinemet did continue 10. Dyslipidemia -Patient is on statin therapy, continued at home dose 11. Coronary artery disease ? Per history patient is on guideline directed medical therapy 12. Overactive bladder on solifenaci 13. Dementia with behavioral disorders -continue memantine;Patient does have significant cerebral atrophy noted on her MRI from 2019, -Continue home risperidone 14. DVT prophylaxis ? SC Lovenox Time spent in the patient's overall evaluation,decision-making process, review of diagnostic data, adjustment of management, discussion with other providers, nursing nursing and ancillary staff involved in patient's care documentation, 35 Minutes Medications at Discharge Home Medications levothyroxine 50 mcg tablet 50 mcg PO DAILY 08/20/19 lorazepam 0.5 mg tablet 0.5 mg PO QHS 08/20/19 metformin 1,000 mg tablet 500 mg PO BID 08/20/19 metoprolol tartrate 25 mg tablet 25 mg PO BID 08/20/19 simvastatin 20 mg tablet 20 mg PO QHS 08/20/19 aspirin 81 mg tablet 81 mg PO DAILY 05/24/22 carbidopa 25 mg-levodopa 100 mg tablet 1.5 tab PO TID 05/24/22 glipizide 2.5 mg tablet, extended release 24 hr 2.5 mg PO DAILY 05/24/22 memantine 10 mg tablet 10 mg PO BID 05/24/22 risperidone 0.5 mg tablet 0.5 mg PO BID 05/24/22 solifenacin 5 mg tablet 5 mg PO DAILY 05/24/22 ciprofloxacin HCl 250 mg tablet 250 mg PO BID #10 tabs 01/21/23 Hospital Course Summary of Care Provided Minutes Spent on Discharge: 35 Physical Exam Narrative GENERAL: Flat affect HEENT: Atraumatic; normocephalic EYES; Anicteric, Normal Conjunctiva NECK; supple, normal thyroid, RESPIRATORY: Diminished to auscultation CARDIOVASCULAR: Regular S1 S2, GI: soft, normoactive bowel sounds, : No Renal angle tenderness; EXTREMITIES: No edema, no clubbing, MUSCULOSKELETAL: no muscle wasting NEURO: Awake; no lateralizing signs. SKIN: No Rash PSYCH; Flat affect Weight / BMI Weight Weight: 59.562 kg Body Mass Index (BMI) 24.7 ABG / Lab / Microbiology Data 01/21/23 07:05 01/21/23 07:05 Laboratory: Laboratory Results - last 24 hr 01/19/23 15:54: POC Glucose 278 H 01/19/23 22:01: POC Glucose 234 H 01/20/23 06:29: POC Glucose 188 H 01/20/23 06:40: WBC 7.6, RBC 3.18 L, Hgb 9.0 L, Hct 28.8 L, MCV 90.6, MCH 28.3, MCHC 31.3 L, RDW Std Deviation 49.9 H, RDW Coeff of Festus 14.6, Plt Count 210, MPV 10.6, Immature Gran % (Auto) 0.700, Neut % (Auto) 66.2, Lymph % (Auto) 19.1, [place] % (Auto) 10.0, Eos % (Auto) 3.7, Baso % (Auto) 0.3, Absolute Neuts (auto) 5.1, Absolute Lymphs (auto) 1.46, Nucleated RBC % 0, Sodium 138, Potassium 3.8, Chloride 108 H, Carbon Dioxide 26.0, Anion Gap 4 L, BUN 32 H, Creatinine 1.85 H, Estim Creat Clear Calc 19.52, Est GFR (MDRD) Af Amer 34 L, Est GFR (MDRD) Non-Af 28 L, BUN/Creatinine Ratio 17.3, Glucose 197 H, Calcium 8.4 L 01/20/23 11:02: POC Glucose 186 H 01/20/23 15:35: POC Glucose 227 H Microbiology: Microbiology 01/17/23 17:35 Blood Culture (Wb) - Anticubital Right Blood Culture - Preliminary Gram negative sanjuana 01/17/23 17:42 Blood Culture (Wb) - Anticubital Left Blood Culture - Preliminary No growth in 48 hours. 01/17/23 11:20 Urine, Clean Catch Urine Culture - Final Enterobacter cloacae complex 01/17/23 17:39 Mucosa - Nasopharyngeal Coronavirus COVID-19 PCR - Final 01/17/23 10:40 Nasal Secretion SARS-CoV-2 Antigen (Rapid) - Final D/C Instructions Discharge Diet: No restrictions Discharge Activity: Return to Normal Activity Call your doctor if you observe: Fever of 101 or Higher, Shortness of breath, Fainting spells and Chest pain Meaningful Use Info Meaningful Use Diagnoses (Choose all that apply): None applicable Discharge Plan Admission Admit Date/Time: 01/17/23 13:15 Attending Provider: Renzo Tavares Primary Care Provider: Dannielle John Consulting Providers: Adilene Guzman; Samreen Joy Discharge Orders/Prescriptions Prescriptions: New ciprofloxacin HCl 250 mg Tablet 250 mg PO BID Qty: 10 0RF Continued lorazepam 0.5 MG tablet 0.5 mg PO QHS levothyroxine 50 MCG tablet 50 mcg PO DAILY simvastatin 20 MG tablet 20 mg PO QHS metformin 1,000 MG tablet 500 mg PO BID metoprolol tartrate 25 MG tablet 25 mg PO BID glipizide 2.5 mg tablet extended release 24hr 2.5 mg PO DAILY Patient Comments: Take 1 tablet by mouth daily with breakfast. Rx Instructions: with breakfast aspirin 81 mg Tablet 81 mg PO DAILY Rx Instructions: INSTRUCTED TO STOP 5 DAYS PRIOR TO OR carbidopa-levodopa 25-100 mg tablet 1.5 tab PO TID Patient Comments: Take 1 and 1/2 tablets by mouth every morning AND 1 and 1/2 tablets every afternoon AND 1 and 1/2 tablets every evening. (8AM, Noon, 4PM).. memantine 10 mg tablet 10 mg PO BID Patient Comments: Take 1 tablet by mouth twice daily. solifenacin 5 mg tablet 5 mg PO DAILY Patient Comments: Take 1 tablet by mouth once daily. risperidone 0.5 mg tablet 0.5 mg PO BID Patient Comments: Take 1 tablet by mouth twice daily. Referrals / Follow Up: Dannielle John MD [Primary Care Provider] - Within 2 Weeks Disposition Disposition (needs filled in before D/C Order can be placed): Home Health Service Charges/Coding Visit Charges Inpatient E&M: 52014 Disch Hosp >30min
--- NOTE | 2023-01-20 16:14 | CASEMGMT ---
ARIANA HUERTA made aware pt wants to return home with [facility]. ARIANA HUERTA into pt room, pt states that she is active with [facility] for SN and PT. She states she has the DME she needs at home including a FWW that is top of the line. TC to pt , left message to return call to discuss dc plan. Referral sent to [facility] for verification of services provided and to make aware pt will dc tomorrow per hospitalist. Will await returned message.
[2023-01-20] MEDS: 0.9% Saline Lock 10 ML Syringe IV (22:06)
[2023-01-20] MEDS: LORazepam 0.5 MG Tablet PO (22:06)
[2023-01-20] MEDS: Atorvastatin Calcium 10 MG Tablet PO (22:07)
[2023-01-20 22:26] LABS: Bedside Glucose 264 mg/dL (74-106)
[2023-01-21 00:07] VITALS: BP 122/71; PULSE 63; RESP 18; TEMP 36.6; O2SAT 95
[2023-01-21 06:21] VITALS: BP 136/72; PULSE 72; RESP 18; TEMP 36.8; O2SAT 96
[2023-01-21] MEDS: Insulin Lispro 100 UNIT/ML INSULN.PEN SC ×3 (06:25→16:23)
[2023-01-21] MEDS: Levothyroxine 50 MCG Tablet PO (06:26)
[2023-01-21] MEDS: Enoxaparin 30 MG/0.3 ML Syringe SC (06:27)
[2023-01-21] MEDS: Carbidopa/Levodopa 25/100 Tablet PO ×3 (06:47→16:25)
[2023-01-21 06:48] LABS: Bedside Glucose 194 mg/dL (74-106)
[2023-01-21 07:21] LABS: Absolute Lymphocyte Count 1.24 X10^3/uL (0.83-4.51); Absolute Neutrophil Count 5.1 X10^3/uL (2.0-7.7); Basophil# 0.02 X10^3/uL; Basophil% 0.3 % (0-1); Eosinophil# 0.17 X10^3/uL; Eosinophils% 2.4 % (0-5); Hematocrit 30.6 % (37-47); Hemoglobin 9.5 g/dL (12.0-15.0); Lymphocyte # 1.24 X10^3/ul (0.83-4.51); Lymphocyte % 17.3 % (19-41); Mean Corpuscular Hgb 28.3 pg (27.0-32.0); Mean Corpuscular Volume 91.1 fL (81-99); Monocyte# 0.61 X10^3/uL; Monocyte% 8.5 % (0-10); NRBC Flagged by Analyzer 0 % (0-5); Neutrophil # 5.09 X10^3/uL (2.7-7.7); Neutrophil % 70.8 % (47-70); Platelet Count 222 K/mm3 (150-450); RBC Distribution Width CV 14.4 % (11.6-14.6); RBC Distribution Width SD 48.4 fl (35.1-43.9); Red Blood Count 3.36 M/mm3 (4.2-5.4); White Blood Count 7.2 K/mm3 (4.4-11.0)
[2023-01-21 07:54] LABS: Anion Gap 5 (5-15); BUN 28 mg/dL (7-18); Calcium,Total 8.6 mg/dL (8.5-10.1); Chloride 109 mmol/L (98-107); Creatinine, Serum 1.75 mg/dL (0.55-1.02); EST Glomerular Filtration Rate 30 mL/min (>60); Est Glom Filt Rate - Afr Amer 36 mL/min (>60); Estimated Creatinine Clearance 20.64 ml/min; Glucose 197 mg/dL (74-106); Potassium 3.9 mmol/L (3.5-5.1); Sodium Level 139 mmol/L (136-145)
[2023-01-21 08:14] VITALS: PULSE 72
[2023-01-21] MEDS: Metoprolol Tartrate 25 MG Tablet PO (08:14)
[2023-01-21] MEDS: Aspirin 81 MG TAB.CHEW PO (08:14)
[2023-01-21] MEDS: Ciprofloxacin 250 MG Tablet PO (08:14)
[2023-01-21] MEDS: RisperiDONE 0.5 MG Tablet PO (08:15)
[2023-01-21] MEDS: Memantine Hydrochloride 10 MG Tablet PO (08:15)
[2023-01-21 10:00] VITALS: BP 133/70; PULSE 90; RESP 18; TEMP 36.9; O2SAT 95
--- NOTE | 2023-01-21 11:18 | CASEMGMT ---
Addendum entered by Gia Cano 01/21/23 13:37: TC to pt again, no answer. ARIANA HUERTA into pt room. Pt states she is happy to go home with [facility] and denies any further homegoing needs. Original Note: ARIANA HUERTA attached dc summary and HH order for SN, PT, OT and ST in [facility] and sent to [facility] at this time. Pt to dc today.
[2023-01-21 11:39] LABS: Bedside Glucose 263 mg/dL (74-106)
[2023-01-21 14:04] VITALS: BP 108/61; PULSE 69; RESP 18; TEMP 37.3; O2SAT 98
[2023-01-21 16:47] LABS: Bedside Glucose 229 mg/dL (74-106)
== END 2023-01-21 17:15 | disposition home health service (06) ==
LOC: ED 10:56 → MS3 13:27
PROVIDERS: Internal Medicine; Admitting Provider Internal Medicine; Emergency Provider Emergency Medicine; PCP Internal Medicine; Visit Provider Internal Medicine
DX: N30.00 Acute cystitis without hematuria (principal); F02.818 Dementia in other diseases classified elsewhere, unspecified severity, with other behavioral disturbance; E11.22 Type 2 diabetes mellitus with diabetic chronic kidney disease; N18.32 Chronic kidney disease, stage 3b; G20.A1 Parkinson's disease without dyskinesia, without mention of fluctuations; Z20.822 Contact with and (suspected) exposure to COVID-19; R26.2 Difficulty in walking, not elsewhere classified; F41.1 Generalized anxiety disorder; I25.10 Atherosclerotic heart disease of native coronary artery without angina pectoris; Z79.82 Long term (current) use of aspirin; E03.9 Hypothyroidism, unspecified; I12.9 Hypertensive chronic kidney disease with stage 1 through stage 4 chronic kidney disease, or unspecified chronic kidney disease; Z79.84 Long term (current) use of oral hypoglycemic drugs; Z79.899 Other long term (current) drug therapy; Z79.890 Hormone replacement therapy; K21.9 Gastro-esophageal reflux disease without esophagitis; F32.A Depression, unspecified; D63.8 Anemia in other chronic diseases classified elsewhere; B96.89 Other specified bacterial agents as the cause of diseases classified elsewhere; R13.10 Dysphagia, unspecified
CPT/HCPCS: 36415; 71045; 76770; 80048; 80053; 81001; 82306; 82607; 82962; 83036; 83735; 84100; 84443; 84484; 85025; 87040; 87077; 87086; 87088; 87186; 87635; 87641; 87811; 92523; 92526; 92610; 93005; 94668; 96361; 96365; 96366; 96372; 97110; 97162; 97165; 97530; 97535; 99221; 99252; 99285; J7030; J7050; J7120; P9612; A4216; G0378; G0463

== ENCOUNTER 2023-06-23 19:14 | Inpatient (IN) | payer MEDICARE, SELFPAY ==
[2023-06-23 19:15] VITALS: BP 119/62; PULSE 96; RESP 20; TEMP 37.7; O2SAT 92; BMI 25.8
--- NOTE | 2023-06-23 19:40 | EKG12_ITS ---
Test Reason : DYSRHYTHMIA Blood Pressure : / mmHG Vent. Rate : 088 BPM Atrial Rate : 088 BPM P-R Int : 166 ms QRS Dur : 070 ms QT Int : 350 ms P-R-T Axes : 050 -10 -63 degrees QTc Int : 423 ms Normal sinus rhythm Possible Left atrial enlargement T wave abnormality, consider anterolateral ischemia Abnormal ECG Confirmed by Yao Akers ([id number]), newspaper or periodical editor SUPRIYA ORDONEZ ([id number]) on 06/24/2023 9:44:20 AM Referred By: Confirmed By:Yao Akers
[2023-06-23 20:10] LABS: Mucous, Urine 0 SEEN /hpf (<or=2+); Squamous Epithelial Cells - UA 0 SEEN /hpf (5-10)
[2023-06-23 20:10] LABS: Absolute Lymphocyte Count 0.75 X10^3/uL (0.83-4.51); Absolute Neutrophil Count 15.8 X10^3/uL (2.0-7.7); Basophil# 0.07 X10^3/uL; Basophil% 0.4 % (0-1); Eosinophil# 0.01 X10^3/uL; Eosinophils% 0.1 % (0-5); Hematocrit 35.5 % (37-47); Hemoglobin 11.5 g/dL (12.0-15.0); Lymphocyte # 0.75 X10^3/ul (0.83-4.51); Lymphocyte % 4.1 % (19-41); Mean Corp Hgb Conc 32.4 g/dL (32-36); Mean Corpuscular Hgb 28.6 pg (27.0-32.0); Mean Corpuscular Volume 88.3 fL (81-99); Monocyte# 1.58 X10^3/uL; Monocyte% 8.6 % (0-10); NRBC Flagged by Analyzer 0 % (0-5); Neutrophil # 15.77 X10^3/uL (2.7-7.7); Neutrophil % 86.1 % (47-70); POSITIVE DIFFERENTIAL YES; Platelet Count 255 K/mm3 (150-450); RBC Distribution Width CV 13.8 % (11.6-14.6); RBC Distribution Width SD 44.5 fl (35.1-43.9); Red Blood Count 4.02 M/mm3 (4.2-5.4); White Blood Count 18.3 K/mm3 (4.4-11.0)
[2023-06-23 20:13] LABS: Differential Indicated SCAN CRITERIA MET
[2023-06-23 20:14] LABS: Color, Urine Yellow (Yellow); Glucose, Dipstick Normal (Normal); Ketone-Dipstick Negative (Negative); Leukocyte Esterase-Dipstick 500 /ul (Negative); Nitrite-Dipstick Negative (Negative); Occult Blood-Urine 250 /ul (Negative); Protein-Dipstick 30 mg/dl (Negative); Specific Gravity, Urine 1.015 (1.002-1.030); Urine Bilirubin Dipstick Negative (Negative); Urine Clarity Cloudy (Clear); Urine Urobilinogen Normal (Normal)
[2023-06-23 20:20] LABS: White Blood Cells >100 SEEN /hpf (0-5)
[2023-06-23 20:21] LABS: Bacteria 1+ /hpf (None Seen); Red Blood Cells-Urine 50-100 SEEN /hpf (0-5)
--- NOTE | 2023-06-23 20:24 | EX.ED.DYSGE1 ---
HPI History of Present Illness Chief Complaint: Weakness Detail of Chief Complaint: Generalized weakness. Fall. Informant: patient Onset/Context/Timing Onset: Today Context: Gradual Onset Timing: Continuous Current Severity: Moderate Maximum Severity: Moderate Narrative Narrative: 78-year-old female history of Parkinson disease and dementia. Lives at home with her . Currently there is no family present. States she was walking in the bathroom and felt weak today and fell to the floor. Denies any injury. Denies hitting her head. The only blood thinner she is on is aspirin. Denies any recent vomiting or diarrhea. Denies any fever. Prior similar symptoms: No Recent Illness/Hospitalization: No PFSH PFSH Medical History Back pain Benign essential hypertension Bladder disease CAD (coronary artery disease) Depression Diabetes Former smoker Generalized anxiety disorder GERD (gastroesophageal reflux disease) High cholesterol History of heart attack HLD (hyperlipidemia) Hypertension Kidney stone Parkinson's disease Parkinson's disease Post-menopausal Thyroid disease TIA (transient ischemic attack) Type II diabetes mellitus Walker as ambulation aid Wears dentures Home Medications levothyroxine 50 mcg tablet 50 mcg PO DAILY 08/20/19 [History Last Taken 01/17/23] lorazepam 0.5 mg tablet 0.5 mg PO QHS 08/20/19 [History Last Taken 01/16/23] metformin 1,000 mg tablet 500 mg PO BID 08/20/19 [History Last Taken 01/17/23] metoprolol tartrate 25 mg tablet 25 mg PO BID 08/20/19 [History Last Taken 01/17/23] simvastatin 20 mg tablet 20 mg PO QHS 08/20/19 [History Last Taken 01/16/23] aspirin 81 mg tablet 81 mg PO DAILY 05/24/22 [History Last Taken 01/17/23] carbidopa 25 mg-levodopa 100 mg tablet 1.5 tab PO TID 05/24/22 [History Last Taken 01/17/23] glipizide 2.5 mg tablet, extended release 24 hr 2.5 mg PO DAILY 05/24/22 [History Last Taken 01/17/23] memantine 10 mg tablet 10 mg PO BID 05/24/22 [History Last Taken 01/17/23] risperidone 0.5 mg tablet 0.5 mg PO BID 05/24/22 [History Last Taken 01/17/23] solifenacin 5 mg tablet 5 mg PO DAILY 05/24/22 [History Last Taken Unknown] Allergy/AdvReac Type Severity Reaction Status Date / Time No Known Allergies Allergy Verified 06/23/23 19:15 Family History Mother Heart disease Hypertension Father No problems noted. Surgical History History of cystoscopy History of ureteroscopy Hx of CABG Social History household members: spouse housing: house Smoking Status: Former smoker alcohol intake: never substance use type: does not use ROS ROS ED ROS Narrative Generalized weakness. Review of Systems ROS Unobtainable: Denies due to encephalopathy Constitutional Constitutional ED: Denies chills or fever(s) Eyes Eyes: Denies blurry vision ENT ENT ED: Denies ear pain Cardiovascular Cardiovascular: Denies chest pain Respiratory/Chest Respiratory/Chest: Denies cough or dyspnea Gastrointestinal Gastrointestinal: Denies abdominal pain, diarrhea, nausea or vomiting Genitourinary Genitourinary ED: Denies dysuria or hematuria Musculoskeletal Musculoskeletal: Denies arthralgias Integumentary Denies abscess Neurologic Neurologic: Denies headache(s) Psychiatric Psychiatric: Denies anxiety Endocrine Endocrinology: Denies cold intolerance Hematologic/Lymphatic Hematologic/Lymphatic: Reports none Allergic/Immunologic Allergic/Immunologic ED: Denies mouth swelling, tongue swelling or urticaria EXAM Physical Exam Narrative Exam Narrative: 78-year-old female initial blood pressure 119/62. Temperature 99.9. Pulse ox 92%. Clinically patient does not look well. She does not look septic. HEENT exam atraumatic. Nontender. Pupils round reactive light. Moist mucous members. Neck nontender no JVD. Lungs clear to auscultation bilaterally. Heart regular rhythm rate about 95 no murmur. Chest wall nontender. Well-healed prior sternotomy. Abdomen soft, nontender, nondistended normal bowel sounds no peritoneal signs. Moving all 4 extremities. Nontender no deformity. No hip tenderness. No shortening or rotation. Back nontender. Neurologically she is awake alert. She is answering questions and following commands. She appears generally weak. Const Vital Signs: 06/23/23 19:15 06/23/23 19:18 06/23/23 19:41 Temperature 99.9 F H Temperature Source Oral Pulse Rate 96 Respiratory Rate 20 H Respiratory Pattern Normal Blood Pressure 119/62 Blood Pressure Mean 81 Pulse Ox 92 Oxygen Delivery Method Room Air Positive well nourished and well developed; Negative for cachectic, contractures or unkempt General Appearance ED: well developed and NAD; Negative for unkempt, cachectic, contractures, cyanotic, diaphoretic or pallor Nutritional Appearance: Negative for cachectic HEENT Reports moist mucous membranes; Denies TM's clear Negative for trauma or tenderness Tympanic Membrane ED: Negative for TM's clear Eyes PERRL and EOMs intact bilaterally General Eye ED: Negative for pale conjunctiva, scleral icterus or other Neck no lymphadenopathy, supple and no JVD General: Negative for tenderness Chest Wall inspection of chest normal and palpation of chest normal Chest: Negative for other Resp normal respiratory effort and clear to auscultation bilaterally Effort and Inspection: Negative for retractions Auscultation: Negative for rales, rhonchi or wheezes Cardio regular rate, regular rhythm, S1 normal heart sound, S2 normal heart sound and no murmurs Palpation: Negative for palpable S3 or palpable S4 Rate: Negative for bradycardia, tachycardic or other Rhythm: Negative for abnormal rhythm GI normal to inspection, nondistended, normoactive bowel sounds, non-tender, non-distended and no masses Inspection: Negative for abdominal distention Auscultation: normoactive bowel sounds Palpation: soft; Negative for tender, guarding or rebound tenderness present Back/Spine no CVA tenderness General Back: Negative for CVA tenderness Cervical Spine: Negative for cervical spine tenderness Thoracic Spine / Upper Back: Negative for thoracic spinal tenderness or paraspinal muscle tenderness Lumbar Spine / Lower Back: Negative for lumbar spinal tenderness Extremity normal to inspection General Extremety ED: Negative for edema or tenderness General Extremity: Negative for edema Neuro CN's II-XII intact bilaterally Neuro Narrative: Awake and alert. Answering questions. Following commands. Sensorium / Orientation: alert and orientation impaired; Negative for lethargic or stuporous Motor Exam: general weakness Psych mental status grossly normal Appearance: Negative for unkempt Attitude: No agitated Mood & Affect: Negative for depressed, anxious or tearful Skin no rashes or lesions noted and no wounds General Skin Exam: Negative for jaundice or pallor Lesions: No lesion noted Rashes: No rashes noted Trauma: Negative for abrasion Wounds: Negative for wounds noted MDM MDM MDM Narrative Medical decision making narrative: 78-year-old female with dementia and Parkinson's and diabetes. With generalized weakness and a fall at home. Concern for infectious etiology versus other. Nurses and started protocol orders in triage due to the volume in the emergency department and current acuity. Patient has a UTI. She will be started on IV Rocephin. She has a leukocytosis associated with it. She also receive IV fluids. Repeat exam patient is doing well at 9:15 PM. She is awake alert. She is answering questions. I went over her test results with her she will be admitted. I have ordered a second liter normal saline. There get ready to hang her Rocephin. I have the hospitalist on page for admission. History & Record Review Discussion w/independent historian: Patient Additional record(s) reviewed:: Prior inpatient record, Prior outpatient record, Prior ED visit and Prior labs Lab Data Attestation: I reviewed the patient's lab results. Lab results narrative: CBC shows no elevated white count 18.3. H&H 11.5 and 35.5 platelets 255. UA is cloudy with 50-100 red cells. Greater than 100 white cells and 1+ bacteria. Culture be sent. This to be treated as a UTI. She will be started on Rocephin. Chemistries show a gap of 10. BUN 44 and creatinine 1.75 consistent with dehydration. Glucose 229. Lactic acid 3.4. Liver enzymes normal. Chest x-ray chronic changes. Prior sternotomy. Labs: Laboratory Results - last 24 hr 06/23/23 06/23/23 06/23/23 19:50 20:02 20:36 WBC 18.3 H RBC 4.02 L Hgb 11.5 L Hct 35.5 L MCV 88.3 MCH 28.6 MCHC 32.4 RDW Std Deviation 44.5 H RDW Coeff of Festus 13.8 Plt Count 255 MPV 10.0 Immature Gran % (Auto) 0.700 Neut % (Auto) 86.1 H Lymph % (Auto) 4.1 L [place] % (Auto) 8.6 Eos % (Auto) 0.1 Baso % (Auto) 0.4 Absolute Neuts (auto) 15.8 H Absolute Lymphs (auto) 0.75 L Nucleated RBC % 0 Differential Comment SEE COMMENT Diff Path Review May foll Platelet Estimate ADEQUATE RBC Morphology N CHROM Anisocytosis RARE Macrocytosis RARE Ovalocytes RARE Sodium 136 Potassium 4.2 Chloride 108 H Carbon Dioxide 18.0 L Anion Gap 10 BUN 44 H Creatinine 1.75 H Estim Creat Clear Calc 22.73 Est GFR (MDRD) Af Amer 36 L Est GFR (MDRD) Non-Af 30 L BUN/Creatinine Ratio 25.1 H Glucose 229 H Lactic Acid 3.4 H* Calcium 9.2 Total Bilirubin 0.80 AST 9 L ALT < 6 L Alkaline Phosphatase 84 Total Protein 7.8 Albumin 3.1 L Globulin 4.7 H Albumin/Globulin Ratio 0.7 L Urine Color Yellow Urine Clarity Cloudy Urine pH 5.0 Ur Specific [place] 1.015 Urine Protein 30 H Urine Glucose (UA) Normal Urine Ketones Negative Urine Occult Blood 250 H Urine Nitrite Negative Urine Bilirubin Negative Urine Urobilinogen Normal Ur Leukocyte Esterase 500 H Urine RBC 50-100 SEEN Urine WBC >100 SEEN Ur Squamous Epith Cells 0 SEEN Urine Bacteria 1+ Urine Mucus 0 SEEN Radiography Chest X-Ray - ED: 1 View, Read by ED Physician, Heart, Lungs, Mediastinum, Bony Structures, No Acute Disease and Chronic Changes Diagnostic Testing: Chest x-ray, portable single view, interpreted by myself shows no acute abnormality. Chronic changes. Normal cardiac silhouette. Normal lung [place]. Prior sternotomy. Rhythm Strip Rhythm Strip: Sinus Rhythm Rate: 88 Ectopy: None EKG Initial EKG: Attestation: I personally reviewed and interpreted this EKG as follows: Interpretation: Sinus Rhythm and No Acute Injury Pattern Comments: Normal sinus rhythm rate 88. Nonspecific inverted T waves in V1 through 6. No ST elevation. Discharge Plan Dx/Rx/DC Orders Clinical Impression: Urinary tract infection, Generalized weakness, Leukocytosis, Fall, Sepsis Disposition Disposition: Acute Care [facility]
[2023-06-23 20:26] LABS: ALB/GLOB Ratio 0.7 RATIO (0.9-2.4); AST(SGOT) 9 U/L (15-37); Alanine Aminotransfer ALT/SGPT < 6 U/L (13-56); Albumin, Serum 3.1 g/dL (3.2-5.0); Alkaline Phosphatase 84 U/L (45-117); Anion Gap 10 (5-15); BUN 44 mg/dL (7-18); BUN/Creat Ratio 25.1 RATIO (10-20); Calcium,Total 9.2 mg/dL (8.5-10.1); Chloride 108 mmol/L (98-107); Creatinine, Serum 1.75 mg/dL (0.55-1.02); EST Glomerular Filtration Rate 30 mL/min (>60); Est Glom Filt Rate - Afr Amer 36 mL/min (>60); Estimated Creatinine Clearance 22.73 ml/min; Globulin 4.7 g/dL (2.2-4.2); Glucose 229 mg/dL (74-106); Potassium 4.2 mmol/L (3.5-5.1); Protein, Total 7.8 g/dL (6.4-8.2); Sodium Level 136 mmol/L (136-145)
[2023-06-23 20:30] LABS: Anisocytosis RARE; Macrocytosis RARE; Ovalocyte RARE; Platelet Estimate ADEQUATE (ADEQ); Red Cell Morphology N CHROM NORMAL (NORM C&C)
[2023-06-23] MEDS: 0.9% Normal Saline (500mL Bag) 500 ML 1000 ML IV (20:38)
--- NOTE | 2023-06-23 20:45 | RAD_ITS ---
INDICATION: weakness EXAMINATION/TECHNIQUE: X-RAY - portable upright AP chest x-ray COMPARISON: 01/17/2023 FINDINGS: LINES/DEVICES: None. LUNGS: No consolidation, edema or effusion. No pneumothorax. MEDIASTINUM AND CARDIOVASCULAR STRUCTURES: Cardiac silhouette stable within normal limits. Stable CABG changes. BONES AND SOFT TISSUES: No acute changes. RAD/Chest 1 View (Portable) IMPRESSION: No radiographic evidence of acute cardiopulmonary disease. Electronically Signed: Angelo Clark MD at 21:24 EST ,
[2023-06-23 21:12] VITALS: BP 107/69; PULSE 76; RESP 22; O2SAT 94
[2023-06-23 21:13] LABS: Lactic Acid 3.4 mmol/L (0.4-1.9)
[2023-06-23] MEDS: 0.9% Normal Saline (1000mL) 1,000 ML 999 ML IV (21:22)
[2023-06-23] MEDS: Ceftriaxone 1 GM/50 ML BAG IV (21:23)
[2023-06-23 21:29] VITALS: BP 101/85; PULSE 80; RESP 22; TEMP 37; O2SAT 94
[2023-06-23 21:30] VITALS: BP 101/84; PULSE 80; RESP 22; TEMP 37; O2SAT 94
[2023-06-23 22:12] VITALS: BP 111/60; PULSE 84; RESP 21; O2SAT 95
--- NOTE | 2023-06-23 22:15 | PCM.HP.STD ---
HPI - General General Date of Admission: 06/23/23 Date of Service: 06/23/23 Chief Complaint: Falls, weakness. HPI Narrative The patient is a 78 y/o F w/ PMHx: CKD stage III unclear subtype, Parkinson's disease with associated dementia, HTN, HLD, Anxiety and Depression, CAD s/p CABG, Hx TIA, Hypothyroidism, Former tobacco use, GERD, Chronic anemia who presents to the [facility] ED on 06/23/23 with history of significant worsened generalized weakness and debility with falls walking to the bathroom earlier in the day with a fall associated with no head trauma or loss of consciousness no any recent fevers or chills but did note her urine was very strong smelling and she has a history of frequent urinary tract infections prompting transition to the ED for evaluation. Has been noted she did not have any recent fevers or chills or any URI type symptoms. Workup in the ED included T99.9 With most recent repeat 98.6, heart rate 96, BP 119/62, respiratory rate 22, 94% on room air, CBC with WBC 18.3, hemoglobin 11.5, MCV 88.3, platelet 255 with left shift and lymphopenia, CMP with chloride 108, carbon oxide 18, anion gap 10, BUN/creatinine 44/1.75, glucose 229, initial lactic acid 3.4, hepatic profile not marked appearing, urinalysis with specific gravity 1.015, protein 30, occult blood 250, negative nitrite, leukocyte Estrace 500, urine RBC 50-100, urine WBCs greater than 100, urine bacteria 1+, urine culture pending per ED, blood culture x 2 pending per ED, chest x-ray with no acute cardiopulmonary findings. In the ED patient ministered 1 L normal saline as well as IV Rocephin. [facility] Medical History (Updated 06/24/23 @ 02:[address] Shandra Vazquez MD) Anxiety and depression Back pain Benign essential hypertension CAD (coronary artery disease) Chronic anemia CKD (chronic kidney disease), stage III Diabetes Former tobacco use GERD (gastroesophageal reflux disease) History of heart attack History of TIA (transient ischemic attack) HLD (hyperlipidemia) Hypothyroidism Parkinson's disease Type II diabetes mellitus Urinary incontinence Walker as ambulation aid Wears dentures Home Medications levothyroxine 50 mcg tablet 50 mcg PO DAILY 08/20/19 [History Last Taken 01/17/23] lorazepam 0.5 mg tablet 0.5 mg PO QHS 08/20/19 [History Last Taken 01/16/23] metformin 1,000 mg tablet 500 mg PO BID 08/20/19 [History Last Taken 01/17/23] metoprolol tartrate 25 mg tablet 25 mg PO BID 08/20/19 [History Last Taken 01/17/23] simvastatin 20 mg tablet 20 mg PO QHS 08/20/19 [History Last Taken 01/16/23] aspirin 81 mg tablet 81 mg PO DAILY 05/24/22 [History Last Taken 01/17/23] carbidopa 25 mg-levodopa 100 mg tablet 1.5 tab PO TID 05/24/22 [History Last Taken 01/17/23] glipizide 2.5 mg tablet, extended release 24 hr 2.5 mg PO DAILY 05/24/22 [History Last Taken 01/17/23] memantine 10 mg tablet 10 mg PO BID 05/24/22 [History Last Taken 01/17/23] risperidone 0.5 mg tablet 0.5 mg PO BID 05/24/22 [History Last Taken 01/17/23] solifenacin 5 mg tablet 5 mg PO DAILY 05/24/22 [History Last Taken Unknown] Allergy/AdvReac Type Severity Reaction Status Date / Time No Known Allergies Allergy Verified 06/23/23 19:15 Family History Mother Heart disease Hypertension Father No problems noted. Surgical History History of cystoscopy History of ureteroscopy Hx of CABG Social History household members: spouse housing: house Smoking Status: Former smoker alcohol intake: never substance use type: does not use ROS Review of Systems ROS Unobtainable: due to encephalopathy and due to mental condition Vital Signs Vital Signs Vital Signs: 06/23/23 19:15 06/23/23 19:18 06/23/23 19:41 Temperature 99.9 F H Temperature Source Oral Pulse Rate 96 Respiratory Rate 20 H Respiratory Pattern Normal Blood Pressure 119/62 Blood Pressure Mean 81 Pulse Ox 92 Oxygen Delivery Method Room Air 06/23/23 21:12 06/23/23 21:29 06/23/23 21:30 Temperature 98.6 F 98.6 F Temperature Source Temporal Pulse Rate 76 80 80 Respiratory Rate 22 H 22 H 22 H Respiratory Pattern Blood Pressure 107/69 101/85 H 101/84 H Blood Pressure Mean 81 90 89 Pulse Ox 94 94 94 Oxygen Delivery Method Room Air Room Air Weight Weight: 136 lb 10.986 oz Body Mass Index (BMI) 25.8 Physical Exam Narrative Physical Examination: General: Awake, alert, oriented to self and some recent events but patient is clearly confused complicated by underlying history of Parkinson's disease with dementia, currently following commands and cooperative, notes fatigued, no acute complaints otherwise, seated upright in the ED bed. Skin: Normal color, normal turgor, no icterus, no cyanosis except occasional staged ecchymoses. HEENT: AT/NC, EOMI, PERRLA, dry MM, no carotid bruits or JVD noted. Lungs: Mildly diminished, greater bases, appropriate effort, no rales, ronchi or wheezing. Heart: Regular rate and rhythm; no gallop, rub audible. Abdomen: Soft, NTTP, ND, hyperactive BS, no HSM. Extremities: No cyanosis, no clubbing, mild peripheral distal not markedly pitting edema. Neurological: Patient awake, alert, oriented as noted, cognitive function decreased baseline with underlying dementia however patient is more confused per discussion with spouse; pupils equally reactive to light and accommodation, cranial nerves grossly normal, moving all 4 extremities, strength severely globally decreased secondary to acute presentation. Psychiatric: Affect appears flat, fatigued, no acute evidence of depressive or anxiety feelings but does have underlying history. Results Lab / Micro Data 06/23/23 19:50 06/23/23 19:50 Labs: Laboratory Results - last 24 hr 06/23/23 19:50: WBC 18.3 H, RBC 4.02 L, Hgb 11.5 L, Hct 35.5 L, MCV 88.3, MCH 28.6, MCHC 32.4, RDW Std Deviation 44.5 H, RDW Coeff of Festus 13.8, Plt Count 255, MPV 10.0, Immature Gran % (Auto) 0.700, Neut % (Auto) 86.1 H, Lymph % (Auto) 4.1 L, [place]isher % (Auto) 8.6, Eos % (Auto) 0.1, Baso % (Auto) 0.4, Absolute Neuts (auto) 15.8 H, Absolute Lymphs (auto) 0.75 L, Nucleated RBC % 0, Differential Comment SEE COMMENT, Diff Path Review May foll, Platelet Estimate ADEQUATE, RBC Morphology N CHROM, Anisocytosis RARE, Macrocytosis RARE, Ovalocytes RARE, Sodium 136, Potassium 4.2, Chloride 108 H, Carbon Dioxide 18.0 L, Anion Gap 10, BUN 44 H, Creatinine 1.75 H, Estim Creat Clear Calc 22.73, Est GFR (MDRD) Af Amer 36 L, Est GFR (MDRD) Non-Af 30 L, BUN/Creatinine Ratio 25.1 H, Glucose 229 H, Calcium 9.2, Total Bilirubin 0.80, AST 9 L, ALT < 6 L, Alkaline Phosphatase 84, Total Protein 7.8, Albumin 3.1 L, Globulin 4.7 H, Albumin/Globulin Ratio 0.7 L 06/23/23 20:02: Urine Color Yellow, Urine Clarity Cloudy, Urine pH 5.0, Ur Specific [place] 1.015, Urine Protein 30 H, Urine Glucose (UA) Normal, Urine Ketones Negative, Urine Occult Blood 250 H, Urine Nitrite Negative, Urine Bilirubin Negative, Urine Urobilinogen Normal, Ur Leukocyte Esterase 500 H, Urine RBC 50-100 SEEN, Urine WBC >100 SEEN, Ur Squamous Epith Cells 0 SEEN, Urine Bacteria 1+, Urine Mucus 0 SEEN 06/23/23 20:36: Lactic Acid 3.4 H* Rhythm Strip Rhythm Strip: Sinus Rhythm Rate: 88 Ectopy: None Imaging Radiology Impression Chest X-Ray 06/23/23 20:45 IMPRESSION: No radiographic evidence of acute cardiopulmonary disease. Electronically Signed: Angelo Clark MD at 21:24 EST Reading Location ID and State: Counts include 234 beds at the [facility] / [place] Tel , Service support , Assessment & Plan Assessment/Plan (1) Urinary tract infection: PLAN: Plan The patient is a 78 y/o F w/ PMHx: CKD stage III unclear subtype, Parkinson's disease with associated dementia, HTN, HLD, Anxiety and Depression, CAD s/p CABG, Hx TIA, Hypothyroidism, Former tobacco use, GERD, Chronic anemia who presents to the [facility] ED on 06/23/23 with history of significant worsened generalized weakness and debility with falls walking to the bathroom earlier in the day with a fall associated with no head trauma or loss of consciousness no any recent fevers or chills but did note her urine was very strong smelling and she has a history of frequent urinary tract infections prompting transition to the ED for evaluation. #1. Acute Encephalopathy secondary to Acute Complicated Urinary Tract Infection with associated transient hypotension, leukocytosis and significant lactic acidosis however no marked endorgan dysfunction otherwise noted thus not consistent with ED noted sepsis: Will admit to PCU to be cautious given patient initial transient hypotension however this improved with IV fluids, UA upon ED evaluation remarkable, pending UCx, continue judiciousIVFs, monitor I/Os, continue IV cefepime based on previous culture review w/ transition as able pending sensitivities and speciation. Bld cx x 2 obtained in the ED. PT/OT/case management consulted for discharge planning. #2. Parkinson's disease with underlying associated dementia: Complicates presentation, will continue patient home Sinemet, memantine home regimen, maintain on fall precaution, PT/OT/case management consulted for discharge planning. #3. CAD: Status post CABG remotely, will continue aspirin, statin, metoprolol, not on KLAUDIA/ARB. #4. Anxiety and depression: Will continue patient home low-dose lorazepam, risperidone home regimen. #5. Chronic Kidney Disease Stage III, unclear subtype although has vacillated and certainly could be nearing stage IV: Admission BUN/Cr 44/1.75, baseline renal function 1.7-1.8 however last labs noted primarily -01/2023, repeat BMP in AM. #6. Chronic normocytic anemia: Admission hemoglobin 11.5, MCV 88.3, baseline hemoglobin primarily 9 range however last noted 01/21/2023 hemoglobin 9.5, will continue to trend. #7. Hypertension: Continue home regimen including metoprolol as BP allows, PRN hydralazine. #8. Hypothyroidism: Will continue patient home levothyroxine regimen. #9. Hyperlipidemia: Will continue patient on statin therapy. #10. Diabetes mellitus type II: Hold oral home regimen, ADA diet, accu checks w/ ISS. #11. History of TIA: Will continue patient aspirin, statin, metoprolol home regimen, temporally holding oral diabetic regimen with insulin sliding scale as noted. #12. Former tobacco use: Encourage continued tobacco cessation. #13. GERD: Will have as needed Mylanta regimen. #14. DVT prophylaxis: Heparin. #15. CODE status: Patient HCPOA and living will are technically not in place but her with whom she lives is her decision-maker and discussed her current presentation with him at length. Discussed CODE status at length including difference between FULL code, DNR-CCA and DNR-CC status. Following discussions about the differences in these status, requested Full Code status. Advanced Care Planning Face to Face Time: 16 minutes. Charges/Coding Visit Charges Inpatient E&M: 32080 Init Hosp L3 Procedures Hospitalists Procedures: 10846 Advncd Care Plan 30 Min
--- OUTSIDE RECORDS SUMMARY | 2023-06-23 22:28 | XMS RPT_ITS | CCD ---
Author Name Unknown Address [address] [facility] [address] [place] [address] Organization [facility] Care Team Providers Care Line Installation Supervisor Name Role Phone Unavailable Primary Care Provider UnavailLai Hernandez MD Primary Care Provider Lai Turcios MD Primary Care Provider Lai Turcios MD Primary Care Provider TALAMPJAMES, LAI D Primary Care Unavailable TALAMPAS, LAI D Attending Unavailable JEET ALVAREZ JR Attending Unavailable TALAMPAS, LAI D Primary Care Unavailable BOBBY DOHERTY Referring Unavailable TALAMPAS, LAI D Primary Care Unavailable SARA DINERO Attending Unavailable TALAMPAS, LAI D Primary Care Unavailable TALAMPAS, LAI D Referring Unavailable ASIYA JOHN Attending Unavailable TALAMPAS, LAI D Primary Care Unavailable ROSETTESARA Referring Unavailable TALAMPAS, LAI D Primary Care Unavailable SARA DINERO Attending Unavailable TALAMPAS, LAI D Primary Care Unavailable BOBBY DOHERTY Attending Unavailable TALAMPAS, LAI D Primary Care Unavailable TALAMPAS, LAI D Attending Unavailable TALAMPAS, LAI D Primary Care Unavailable TALAMPAS, LAI D Primary Care Unavailable TALAMPAS, LAI D Primary Care Unavailable TALAMPAS, LAI D Referring Unavailable Allergies Allergy Classification Reported Allergen(s) Allergy Type Date of Onset Reaction(s) Facility (20 sources) Lisinopril; Translations: [LISINOPRIL] Drug Allergy 09-09-2010 Cough [facility] Medications Current Medications Medication Drug Class(es) Dates Sig (Normalized) Sig (Original) Blood-Glucose Meter (8 sources) Start: 01-30-2023 End: 01-30-2024 Blood-Glucose Meter Indications: Type 2 diabetes mellitus with other specified complication, without long-term current use of insulin (HCC) 1 Device as directed. Test blood sugars once daily, for DM type 2, E11.9 1 Each 0 01/30/2023 01/30/2024 Active Completed/Discontinued Medications Medication Drug Class(es) Dates Sig (Normalized) Sig (Original) Adhesive Bandage (ADHESIVE PADS) (20 sources) Start: 10-14-2022 Adhesive Bandage (ADHESIVE PADS) Indications: Chronic skin ulcer, limited to breakdown of skin (HCC) 4.5 in x 5.5 in maninder and maninder cushion care adhesive gauze pads, fill for 32 with 5 refills, for open wound on coccyx, can be changed daily. 32 Each 5 10/14/2022 Active Problems Active Problems Problem Classification Problem Date Documented Date Episodic/Chronic Anxiety disorders (20 sources) Panic disorder without agoraphobia; Translations: [Panic disorder [episodic paroxysmal anxiety]] 09-14-2007 Chronic Blindness and vision defects (4 sources) Visual hallucinations; Translations: [Visual hallucinations] Episodic Chronic kidney disease (20 sources) Chronic kidney disease stage 4; Translations: [Chronic kidney disease, stage 4 (severe)] Onset: 10-14-2022 Chronic Chronic ulcer of skin (4 sources) Pressure ulcer of coccygeal region; Translations: [Pressure ulcer of sacral region, unspecified stage] Onset: 08-04-2022 Chronic Coronary atherosclerosis and other heart disease (20 sources) Coronary arteriosclerosis; Translations: [Atherosclerotic heart disease of rosebud coronary artery without angina pectoris] Onset: 09-18-2011 09-18-2011 Chronic Deficiency and other anemia (1 source) Anemia, unspecified; Translations: [Anemia, unspecified type] Onset: 05-13-2023 Episodic Delirium, dementia, and amnestic and other cognitive disorders (20 sources) Dementia; Translations: [Unspecified dementia without behavioral disturbance] Onset: 09-30-2021 Chronic Diabetes mellitus with complications (3 sources) Type 2 diabetes mellitus; Translations: [Type 2 diabetes mellitus with other specified complication] Onset: 10-14-2022 Chronic Diabetes mellitus without complication (20 sources) Type 2 diabetes mellitus without complication; Translations: [Type 2 diabetes mellitus without complications] Onset: 05-10-2015 05-10-2015 Chronic Essential hypertension (20 sources) Hypertensive disorder; Translations: [Essential (primary) hypertension] Onset: 03-10-2011 03-10-2011 Chronic Genitourinary symptoms and ill-defined conditions (10 sources) Incontinence; Translations: [Unspecified urinary incontinence] Onset: 08-04-2022 Chronic Genitourinary symptoms and ill-defined conditions (2 sources) Dysuria; Translations: [Dysuria] Episodic Other aftercare (5 sources) Patient encounter status; Translations: [Other care home (current) drug therapy] Episodic Other aftercare (1 source) Other care home (current) drug therapy; Translations: [Encounter for long-term current use of medication] Onset: 05-13-2023 Episodic Other circulatory disease (7 sources) History of cerebrovascular accident; Translations: [Personal history of transient ischemic attack (TIA), and cerebral infarction without residual deficits] Episodic Other circulatory disease (1 source) Low blood pressure; Translations: [Hypotension, unspecified] 02-23-2023 Episodic Other diseases of kidney and ureters (1 source) Renal impairment; Translations: [Disorder of kidney and ureter, unspecified] Episodic Other diseases of kidney and ureters (2 sources) Obstruction of ureter; Translations: [Crossing vessel and stricture of ureter without hydronephrosis] Episodic Other diseases of kidney and ureters (1 source) Disorder of kidney and ureter, unspecified; Translations: [Acute renal insufficiency] Onset: 05-13-2023 Episodic Other ear and sense organ disorders (20 sources) Hearing loss; Translations: [Unspecified hearing loss, unspecified ear] Onset: 09-14-2007 09-14-2007 Chronic Other ear and sense organ disorders (1 source) Hearing loss in left ear; Translations: [Unspecified hearing loss, left ear] Chronic Other hematologic conditions (1 source) Abnormality of albumin; Translations: [Other nonspecific findings on examination of blood] Episodic Other nervous system disorders (8 sources) Abnormal gait; Translations: [Unsteadiness on feet] Episodic Parkinson`s disease (20 sources) Parkinson's disease; Translations: [Parkinson's disease] Onset: 09-30-2021 Chronic Parkinson`s disease (1 source) Parkinson`s disease; Translations: [Parkinson's disease, unspecified whether dyskinesia present, unspecified whether manifestations fluctuate] Onset: 09-30-2021 Schizophrenia and other psychotic disorders (16 sources) Brief psychotic disorder; Translations: [Unspecified psychosis] Onset: 10-14-2022 10-14-2022 Episodic Screening and history of mental health and substance abuse codes (1 source) History of psychotic disorder; Translations: [Personal history of other mental and behavioral disorders] Episodic Spondylosis; intervertebral disc disorders; other back problems (20 sources) Degeneration of lumbar intervertebral disc; Translations: [Other intervertebral disc degeneration, lumbar region] Onset: 09-30-2021 Chronic Thyroid disorders (20 sources) Acquired hypothyroidism; Translations: [Hypothyroidism, unspecified] Onset: 09-30-2021 Chronic Unclassified (1 source) Lumbar pain; Translations: [Lumbar pain] Onset: 11-20-2022 Past or Other Problems Problem Classification Problem Date Documented Da te Episodic/Chronic Coronary atherosclerosis and other heart disease (1 source) Presence of aortocoronary bypass graft; Translations: [S/P CABG x 3] Onset: 09-18-2011 Episodic Immunizations and screening for infectious disease (1 source) Encounter for immunization; Translations: [Encounter for immunization] Onset: 01-30-2023 Episodic Malaise and fatigue (1 source) Weakness; Translations: [General weakness] Onset: 01-30-2023 Episodic Other aftercare (1 source) Encounter for therapeutic drug level monitoring; Translations: [Encounter for therapeutic drug monitoring] Onset: 01-30-2023 Episodic Other circulatory disease (1 source) Personal history of transient ischemic attack (TIA), and cerebral infarction without residual deficits; Translations: [History of stroke] Onset: 11-20-2022 Episodic Other complications of ; puerperium affecting management of mother (1 source) Other infection during labor; Translations: [Septicemia during labor (HCC)] Onset: 06-06-2022 Episodic Other diseases of kidney and ureters (1 source) Crossing vessel and stricture of ureter without hydronephrosis; Translations: [Obstruction of right ureter] Onset: 08-04-2022 Episodic Other diseases of kidney and ureters (1 source) Unspecified hydronephrosis; 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] Onset: 06-06-2022 Episodic Other inflammatory condition of skin (20 sources) Pruritic rash; Translations: [Other pruritus] Onset: 07-30-2016 07-30-2016 Episodic Other nervous system disorders (1 source) Unspecified abnormalities of gait and mobility; Translations: [Abnormality of gait] Onset: 11-20-2022 Episodic Other screening for suspected conditions (not mental disorders or infectious disease) (4 sources) Serum creatinine raised; Translations: [Other specified abnormal findings of blood chemistry] Onset: 08-04-2022 Episodic Septicemia (except in labor) (1 source) Sepsis, unspecified organism; Translations: [Septicemia during labor (HCC)] Onset: 06-06-2022 Episodic Spondylosis; intervertebral disc disorders; other back problems (20 sources) Low back pain; Translations: [Midline low back pain without sciatica, unspecified chronicity] Onset: 09-30-2021 Episodic Urinary tract infections (2 sources) Urinary tract infection, site not specified; Translations: [Recurrent UTI] Onset: 06-06-2022 Episodic Results Test Name Value Interpretation Reference Range Facil ity Vital Signs Date Time Vital Sign Value Performing Clinician Facility 02-23-2023 15:52-0500 Body weight 58.97 kg Jeet Alvarez Jr., MD Work Phone: [facility] 02-23-2023 15:52-0500 Diastolic blood pressure 64 mm[Hg] Jeet Alvarez Jr., MD Work Phone: [facility] 02-23-2023 15:52-0500 Heart rate 61 /min Jeet Alvarez Jr., MD Work Phone: [facility] 02-23-2023 15:52-0500 Respiratory rate 16 /min Jeet Alvarez Jr., MD Work Phone: [facility] 02-23-2023 15:52-0500 SaO2% (BldA) [Mass fraction] 96 % Jeet Alvarez Jr., MD Work Phone: [facility] 02-23-2023 15:52-0500 Systolic blood pressure 105 mm[Hg] Jeet Alvarez Jr., MD Work Phone: [facility] 11-20-2022 17:29-0400 Body temperature 100.09 [degF] Asiya John APRN.CNP Work Phone: [facility] 11-20-2022 17:29-0400 Diastolic blood pressure 69 mm[Hg] Asiya Dahlhausen SYSTEMS SOFTWARE DEVELOPER.PRODUCT SAFETY ENGINEER Work Phone: [facility] 11-20-2022 17:29-0400 Heart rate 109 /min Asiya Dahlhausen SYSTEMS SOFTWARE DEVELOPER.PRODUCT SAFETY ENGINEER Work Phone: [facility] 11-20-2022 17:29-0400 Systolic blood pressure 107 mm[Hg] Asiya Dahlhausen SYSTEMS SOFTWARE DEVELOPER.PRODUCT SAFETY ENGINEER Work Phone: [facility] 10-14-2022 15:43-0400 Diastolic blood pressure 80 mm[Hg] Sara Rosette SYSTEMS SOFTWARE DEVELOPER.PRODUCT SAFETY ENGINEER Work Phone: [facility] 10-14-2022 15:43-0400 Heart rate 99 /min Sara Rosette SYSTEMS SOFTWARE DEVELOPER.PRODUCT SAFETY ENGINEER Work Phone: [facility] 10-14-2022 15:43-0400 SaO2% (BldA) [Mass fraction] 98 % Sara Rosette SYSTEMS SOFTWARE DEVELOPER.PRODUCT SAFETY ENGINEER Work Phone: [facility] 10-14-2022 15:43-0400 Systolic blood pressure 118 mm[Hg] Sara Rosette SYSTEMS SOFTWARE DEVELOPER.PRODUCT SAFETY ENGINEER Work Phone: [facility] 08-04-2022 15:09-0400 Body weight 58.97 kg Bobby Doherty SYSTEMS SOFTWARE DEVELOPER.IRRIGATING PUMP OPERATOR Work Phone: [facility] 08-04-2022 15:09-0400 Diastolic blood pressure 68 mm[Hg] Bobby Doherty SYSTEMS SOFTWARE DEVELOPER.IRRIGATING PUMP OPERATOR Work Phone: [facility] 08-04-2022 15:09-0400 Heart rate 90 /min Bobby Doherty SYSTEMS SOFTWARE DEVELOPER.IRRIGATING PUMP OPERATOR Work Phone: [facility] 08-04-2022 15:09-0400 Respiratory rate 16 /min Bobby Doherty SYSTEMS SOFTWARE DEVELOPER.IRRIGATING PUMP OPERATOR Work Phone: [facility] 08-04-2022 15:09-0400 Systolic blood pressure 116 mm[Hg] Bobby Doherty SYSTEMS SOFTWARE DEVELOPER.IRRIGATING PUMP OPERATOR Work Phone: [facility] 06-16-2022 14:10-0500 Body temperature 97.81 [degF] Lai Turcios MD Work Phone: [facility] 06-16-2022 14:10-0500 Diastolic blood pressure 68 mm[Hg] Lai Turcios MD Work Phone: [facility] 06-16-2022 14:10-0500 Heart rate 73 /min Lai Turcios MD Work Phone: [facility] 06-16-2022 14:10-0500 Respiratory rate 18 /min Lai Turcios MD Work Phone: [facility] 06-16-2022 14:10-0500 SaO2% (BldA) [Mass fraction] 95 % Lai Turcios MD Work Phone: [facility] 06-16-2022 14:10-0500 Systolic blood pressure 104 mm[Hg] Lai Tucrios MD Work Phone: [facility] 05-15-2022 16:32-0500 Body temperature 99.39 [degF] Asiya Dahlhausen SYSTEMS SOFTWARE DEVELOPER.PRODUCT SAFETY ENGINEER Work Phone: [facility] 05-15-2022 16:32-0500 Body weight 59.33 kg Asiya Dahlhausen SYSTEMS SOFTWARE DEVELOPER.PRODUCT SAFETY ENGINEER Work Phone: [facility] 05-15-2022 16:32-0500 Diastolic blood pressure 66 mm[Hg] Saiya Dahlhausen SYSTEMS SOFTWARE DEVELOPER.PRODUCT SAFETY ENGINEER Work Phone: [facility] 05-15-2022 16:32-0500 Heart rate 118 /min Asiya Dahlhausen SYSTEMS SOFTWARE DEVELOPER.PRODUCT SAFETY ENGINEER Work Phone: [facility] 05-15-2022 16:32-0500 Respiratory rate 16 /min Asiya Dahlhausen SYSTEMS SOFTWARE DEVELOPER.PRODUCT SAFETY ENGINEER Work Phone: [facility] 05-15-2022 16:32-0500 SaO2% (BldA) [Mass fraction] 96 % Asiya Dahlhausen SYSTEMS SOFTWARE DEVELOPER.PRODUCT SAFETY ENGINEER Work Phone: [facility] 05-15-2022 16:32-0500 Systolic blood pressure 100 mm[Hg] Asiya Teekal CUENCA Work Phone: [facility] 03-24-2022 11:01-0500 Body weight 63.05 kg Lai Turcios MD Work Phone: [facility] 03-24-2022 11:01-0500 Diastolic blood pressure 62 mm[Hg] Lai Turcios MD Work Phone: [facility] 03-24-2022 11:01-0500 Heart rate 102 /min Lai Turcios MD Work Phone: [facility] 03-24-2022 11:01-0500 SaO2% (BldA) [Mass fraction] 96 % Lai Turcios MD Work Phone: [facility] 03-24-2022 11:01-0500 Systolic blood pressure 108 mm[Hg] Lai Turcios MD Work Phone: [facility] 01-28-2022 16:55-0400 Body height 156.8 cm Ricardo Mcdonald PA-C Work Phone: [facility] 01-28-2022 16:55-0400 Body temperature 99 [degF] Ricardo Mcdonald PA-C Work Phone: [facility] 01-28-2022 16:55-0400 Body weight 65.77 kg Ricardo Mcdonald PA-C Work Phone: [facility] 01-28-2022 16:55-0400 Diastolic blood pressure 60 mm[Hg] Ricardo Mcdonald PA-C Work Phone: [facility] 01-28-2022 16:55-0400 Heart rate 124 /min Ricardo Mcdonald PA-C Work Phone: [facility] 01-28-2022 16:55-0400 Respiratory rate 14 /min Ricardo Mcdonald PA-C Work Phone: [facility] 01-28-2022 16:55-0400 SaO2% (BldA) [Mass fraction] 95 % Ricardo Mcdonald PA-Mathew Work Phone: [facility] 01-28-2022 16:55-0400 Systolic blood pressure 110 mm[Hg] Ricardo ELLSWORTH-C Work Phone: [facility] 01-14-2022 15:36-0400 Body weight 64.86 kg Bobby Doherty SYSTEMS SOFTWARE DEVELOPER.IRRIGATING PUMP OPERATOR Work Phone: [facility] 01-14-2022 15:36-0400 Diastolic blood pressure 72 mm[Hg] Bobby Doherty SYSTEMS SOFTWARE DEVELOPER.IRRIGATING PUMP OPERATOR Work Phone: [facility] 01-14-2022 15:36-0400 Heart rate 120 /min Bobby Doherty SYSTEMS SOFTWARE DEVELOPER.IRRIGATING PUMP OPERATOR Work Phone: [facility] 01-14-2022 15:36-0400 Respiratory rate 16 /min Bobby Doherty SYSTEMS SOFTWARE DEVELOPER.IRRIGATING PUMP OPERATOR Work Phone: [facility] 01-14-2022 15:36-0400 SaO2% (BldA) [Mass fraction] 94 % Bobby Doherty SYSTEMS SOFTWARE DEVELOPER.IRRIGATING PUMP OPERATOR Work Phone: [facility] 01-14-2022 15:36-0400 Systolic blood pressure 108 mm[Hg] Bobby Doherty SYSTEMS SOFTWARE DEVELOPER.IRRIGATING PUMP OPERATOR Work Phone: [facility] 12-12-2021 16:31-0400 Body temperature 98.1 [degF] Asiya Dahlhausen SYSTEMS SOFTWARE DEVELOPER.PRODUCT SAFETY ENGINEER Work Phone: [facility] 12-12-2021 16:31-0400 Body weight 63.59 kg Asiya Dahlhausen SYSTEMS SOFTWARE DEVELOPER.PRODUCT SAFETY ENGINEER Work Phone: [facility] 12-12-2021 16:31-0400 Diastolic blood pressure 64 mm[Hg] Asiya Dahlhausen SYSTEMS SOFTWARE DEVELOPER.PRODUCT SAFETY ENGINEER Work Phone: [facility] 12-12-2021 16:31-0400 Heart rate 97 /min Asiya Dahlhausen SYSTEMS SOFTWARE DEVELOPER.PRODUCT SAFETY ENGINEER Work Phone: [facility] 12-12-2021 16:31-0400 Respiratory rate 28 /min Asiya Dahlhausen SYSTEMS SOFTWARE DEVELOPER.PRODUCT SAFETY ENGINEER Work Phone: [facility] 12-12-2021 16:31-0400 SaO2% (BldA) [Mass fraction] 95 % Asiya Floreshausen SYSTEMS SOFTWARE DEVELOPER.PRODUCT SAFETY ENGINEER Work Phone: [facility] 12-12-2021 16:31-0400 Systolic blood pressure 98 mm[Hg] Asiya Floreshausen SYSTEMS SOFTWARE DEVELOPER.PRODUCT SAFETY ENGINEER Work Phone: [facility] 09-23-2021 16:59-0400 Body height 152.4 cm Lai Turcios MD Work Phone: [facility] 09-23-2021 16:59-0400 Body weight 69.4 kg Lai Turcios MD Work Phone: [facility] 09-23-2021 16:59-0400 Diastolic blood pressure 60 mm[Hg] Lai Turcios MD Work Phone: [facility] 09-23-2021 16:59-0400 Heart rate 93 /min Lai Turcios MD Work Phone: [facility] 09-23-2021 16:59-0400 SaO2% (BldA) [Mass fraction] 96 % Lai Turcios MD Work Phone: [facility] 09-23-2021 16:59-0400 Systolic blood pressure 102 mm[Hg] Lai Turcios MD Work Phone: [facility] 08-22-2021 15:29-0400 Body temperature 99.19 [degF] Asiya Floreshausen SYSTEMS SOFTWARE DEVELOPER.PRODUCT SAFETY ENGINEER Work Phone: [facility] 08-22-2021 15:29-0400 Body weight 72.12 kg Asiya Teeen SYSTEMS SOFTWARE DEVELOPER.PRODUCT SAFETY ENGINEER Work Phone: [facility] 08-22-2021 15:29-0400 Diastolic blood pressure 82 mm[Hg] Asiya Hawthornehlhausen SYSTEMS SOFTWARE DEVELOPER.PRODUCT SAFETY ENGINEER Work Phone: [facility] 08-22-2021 15:29-0400 Heart rate 78 /min Asiya Dahlhausen SYSTEMS SOFTWARE DEVELOPER.PRODUCT SAFETY ENGINEER Work Phone: [facility] 08-22-2021 15:29-0400 Respiratory rate 18 /min Asiya Dahlhausen SYSTEMS SOFTWARE DEVELOPER.PRODUCT SAFETY ENGINEER Work Phone: [facility] 08-22-2021 15:29-0400 SaO2% (BldA) [Mass fraction] 97 % Asiya Dahlhausen SYSTEMS SOFTWARE DEVELOPER.PRODUCT SAFETY ENGINEER Work Phone: [facility] 08-22-2021 15:29-0400 Systolic blood pressure 128 mm[Hg] Asiya Dahlhausen SYSTEMS SOFTWARE DEVELOPER.PRODUCT SAFETY ENGINEER Work Phone: [facility] 07-11-2021 15:12-0400 Body temperature 99 [degF] Asiya Dahlhausen SYSTEMS SOFTWARE DEVELOPER.PRODUCT SAFETY ENGINEER Work Phone: [facility] 07-11-2021 15:12-0400 Body weight 68.95 kg Asiya Dahlhausen SYSTEMS SOFTWARE DEVELOPER.PRODUCT SAFETY ENGINEER Work Phone: [facility] 07-11-2021 15:12-0400 Diastolic blood pressure 78 mm[Hg] Asiya Dahlhausen SYSTEMS SOFTWARE DEVELOPER.PRODUCT SAFETY ENGINEER Work Phone: [facility] 07-11-2021 15:12-0400 Heart rate 74 /min Asiya Dahlhausen SYSTEMS SOFTWARE DEVELOPER.PRODUCT SAFETY ENGINEER Work Phone: [facility] 07-11-2021 15:12-0400 Respiratory rate 18 /min Asiya Dahlhausen SYSTEMS SOFTWARE DEVELOPER.PRODUCT SAFETY ENGINEER Work Phone: [facility] 07-11-2021 15:12-0400 SaO2% (BldA) [Mass fraction] 98 % Asiya Dahlhausen SYSTEMS SOFTWARE DEVELOPER.PRODUCT SAFETY ENGINEER Work Phone: [facility] 07-11-2021 15:12-0400 Systolic blood pressure 122 mm[Hg] Asiya Dahlhausen SYSTEMS SOFTWARE DEVELOPER.PRODUCT SAFETY ENGINEER Work Phone: [facility] Encounters Encounter Date Encounter Type Care Provider Facility Start: 05-26-2023 Telephone encounter Bobby Broo ks SYSTEMS SOFTWARE DEVELOPER.IRRIGATING PUMP OPERATOR Work Phone: [facility] [place] Procedures Date Procedure Procedure Detail Performing Clinician Start: 02-05-2022 INFLUENZA SEASONAL QUADRIVALENT HIGH DOSE AGE 65+ Lai Turcios MD Work Phone: Start: 01-28-2022 Urnls dip stick/tabl et rgnt auto w/o microscopy Ricardo Mcdonald PA-C Work Phone: Start: 09-23-2021 Adult depression scr eening assessment Lai Turcios MD Work Phone: Start: 10-05-2015 Adult depression scr eening assessment Asiya John SYSTEMS SOFTWARE DEVELOPER.PRODUCT SAFETY ENGINEER Work Phone: Start: 09-18-2011 History of coronary artery bypass grafting S/P CABG x 3 Asiya John SYSTEMS SOFTWARE DEVELOPER.PRODUCT SAFETY ENGINEER Work Phone: History of coronary artery bypass grafting S/P CABG x 3 Maria Short [facility] Work Phone: History of coronary artery bypass grafting S/P CABG x 3 Bobby Doherty SYSTEMS SOFTWARE DEVELOPER.IRRIGATING PUMP OPERATOR Work Phone: Plan of Treatment Date Care Activity Detail Author Start: 05-13-2024 Annual PCP Team Flange Machine Operator ailyn Disease Visit Annual PCP Team Chronic Disease Visit [facility] Start: 05-13-2024 BP Controlled (<130/80) BP Controlle d (<130/80) [facility] Start: 02-24-2024 BP Controlled (<130/80) BP Controlle d (<130/80) [facility] Start: 01-31-2024 Annual PCP Team Flange Machine Operator ailyn Disease Visit Annual PCP Team Chronic Disease Visit [facility] Start: 01-31-2024 Hemoglobin/Hematocrit Hemoglobin/Hem atocrit [facility] Start: 01-31-2024 Serum Creatinine Serum Creatinine Cl [facility] Start: 11-21-2023 BP CONTROLLED (<130/80) BP CONTROLLE D (<130/80) [facility] Start: 11-11-2023 Hemoglobin A1c measurement HbA1C [facility] Start: 10-15-2023 ANNUAL PCP TEAM POWER SHEAR OPERATOR AILYN DISEASE VISIT ANNUAL PCP TEAM CHRONIC DISEASE VISIT [facility] Start: 10-15-2023 HEMOGLOBIN/HEMATOCRIT HEMOGLOBIN/HEM ATOCRIT [facility] Start: 10-15-2023 SERUM CREATININE SERUM CREATININE Cl [facility] Start: 08-05-2023 BP CONTROLLED (<130/80) BP CONTROLLE D (<130/80) [facility] Start: 08-01-2023 Hemoglobin A1c/Hemoglobin.total in Blood HbA1C [facility] Start: 06-16-2023 ANNUAL PCP TEAM POWER SHEAR OPERATOR AILYN DISEASE VISIT ANNUAL PCP TEAM CHRONIC DISEASE VISIT [facility] Start: 06-16-2023 BP CONTROLLED (<130/80) BP CONTROLLE D (<130/80) [facility] Start: 06-06-2023 [facility]: 06-06-[facility]23 SERUM CREATININE SERUM CREATININE [facility] Start: 05-15-2023 BP CONTROLLED (<130/80) BP CONTROLLE D (<130/80) [facility] Start: 04-20-2023 Advance Directive Discussion Advance Directive Discussion [facility] Start: 04-15-2023 Hemoglobin A1c/Hemoglobin.total in Blood HBA1C [facility] Start: 03-24-2023 ANNUAL PCP TEAM POWER SHEAR OPERATOR AILYN DISEASE VISIT ANNUAL PCP TEAM CHRONIC DISEASE VISIT [facility] Start: 03-24-2023 BP CONTROLLED (<130/80) BP CONTROLLE D (<130/80) [facility] Start: 03-24-2023 COLORECTAL CANCER SCREENING COLORECTAL CANCER SCREENING [facility] Immunizations Immunization Date Immunization Notes Care Provider Cong khan 01-30-2023 influenza (HD-IIV4) vaccine, age 65+ yr, high dose, quadrivalent, PF (FLUZONE HIGH-DOSE) Jeet Alvarez Jr., MD Work Phone: [facility] Work Phone: 02-05-2022 influenza, high-dose , quadrivalent vaccine (FLUZONE HIGH DOSE QUADRIVALENT) Nv Nurse Work Phone: [facility] Work Phone: 02-05-2022 influenza virus vacc ine, unspecified formulation Lai Turcios MD Work Phone: [facility] [facility]2020 influenza (aIIV4) vaccine, age 65+ yr, quadrivalent, PF (FLUAD QUADRIVALENT) Lai Turcios MD Work Phone: [facility] 02-10-2019 influenza, high dose seasonal, preservative-free Lai Turcios MD Work Phone: [facility] 07-30-2016 pneumococcal polysaccharide vaccine, 23 valent Asiya Daerickhausen SYSTEMS SOFTWARE DEVELOPER.PRODUCT SAFETY ENGINEER Work Phone: [facility] 02-04-2016 influenza, high dose seasonal, preservative-free Asiya Sandrahausen SYSTEMS SOFTWARE DEVELOPER.PRODUCT SAFETY ENGINEER Work Phone: [facility] 10-05-2015 tetanus and diphther ia toxoids, adsorbed, preservative free, for adult use (5 Lf of tetanus toxoid and 2 Lf of diphtheria toxoid) Asiya Floreshauskal SYSTEMS SOFTWARE DEVELOPER.PRODUCT SAFETY ENGINEER Work Phone: [facility] 02-05-2015 influenza, high dose seasonal, preservative-free Asiya Sandrahausen SYSTEMS SOFTWARE DEVELOPER.PRODUCT SAFETY ENGINEER Work Phone: [facility] 03-29-2014 pneumococcal conjuga te vaccine, 13 valent Asiya Sandrahausen SYSTEMS SOFTWARE DEVELOPER.PRODUCT SAFETY ENGINEER Work Phone: [facility] 02-16-2014 influenza, seasonal, injectable Asiya Sandrahausen SYSTEMS SOFTWARE DEVELOPER.PRODUCT SAFETY ENGINEER Work Phone: [facility] 02-01-2013 influenza virus vacc ine, unspecified formulation Asiya Sandrahausen SYSTEMS SOFTWARE DEVELOPER.PRODUCT SAFETY ENGINEER Work Phone: [facility] 02-07-2012 influenza virus vacc ine, unspecified formulation Asiya Daerickhausen SYSTEMS SOFTWARE DEVELOPER.PRODUCT SAFETY ENGINEER Work Phone: [facility] Work Phone: 01-25-2011 influenza virus vacc ine, unspecified formulation Asiya Dahlhausen SYSTEMS SOFTWARE DEVELOPER.PRODUCT SAFETY ENGINEER Work Phone: [facility] Work Phone: 02-01-2010 influenza virus vacc ine, unspecified formulation Asiya Dahlhausen 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 Social History Date Type Detail Facility Start: 05-31-2021 End: 12-12-2021 Tobacco smoking status NHIS Ex-smoker [facility] Work Phone: End: 09-13-2005 History of tobacco use Current smoker [facility] Start: 07-11-2021 End: 05-13-2023 Alcohol intake Current drinker of alcohol (finding) [facility] Start: 02-04-2010 History SDOH Alcohol Comment Very Little [facility] Start: 1945 Sex Assigned At Not on file [facility] Start: 07-01-2021 End: 03-24-2022 Exposure to SARS-CoV-2 (event) Not sure [facility] End: 09-13-2005 History of tobacco use Cigarette Smoker [facility] Start: 05-31-2021 End: 12-12-2021 Tobacco use and exposure Smokeless tobacco non-user [facility] Start: 09-18-2022 End: 10-14-2022 History of Social function [facility] Start: 09-18-2022 End: 10-14-2022 Tobacco use panel [facility] National Score (1-100), lower number is lower risk 70 [facility] Medical Equipment Procedure Code Equipment Code Equipment Origin al Text Equipment Identifier Dates Start: 02-07-2016 End: 09-23-2021 Clinical Notes 10-30-2012 to 05-27-2023 Telephone Encounter - Deepthi Palma LPN - 05/27/2023 3:29 PM ESTTelephone Encounter - Lai Turcios MD - 05/27/2023 3:07 PM ESTTelephone Encounter - SbMelina newberry Ma - 05/15/2023 9:52 AM EST Note Date & Type Note Facility 05-27-2023 Miscellaneous Notes Faxed signed copy of OV 05-13-23. Deepthi Palma LPN Verify this was taken care of already is needing 05/13/2023 office notes to be faxed to [facility] in order to start HH. Advised that office notes are unsigned, [facility] is not able to start until they have signed office notes, once signed please fax [phone] or [phone]. Smita Fox LPN documented in this encounter [facility] 05-26-2023 Miscellaneous Notes noted. Okay for home health care [place] from [facility] calling with PT plan of care, one visit this week, then 2 visits weekly for 2 weeks, then 1 visit weekly for 2 weeks. documented in this encounter [facility] 05-21-2023 Miscellaneous Notes It appears office note was sent 05/19/23 but will fax again to make sure they have it. Has this been sent? Hailey notified, still needing OV signed and faxed when completed. I will follow--I had submitted order for HH recently. I thought HH was already approved this time Hailey with [facility] calls to ask if provider will follow HH orders for PT services. Requests verbal order. Insurance denied previously but will resubmit request. Also, reports that in order to proceed with HH orders would need a copy of the completed OV note from 05/13/2023. Requests a call back at [phone]. Teagan Figueroa, RN Irina from [facility] asking once OV note is complete from 05/13/23 that it be faxed to [phone]. Att: Irina. documented in this encounter [facility] 05-21-2023 Miscellaneous Notes Rx sent. Patient has been identified by name and date of : Yes Patient phones for refill(s): Requested Prescriptions Pending Prescriptions Disp Refills LORazepam (ATIVAN) 0.5 mg 60 tablet 0 Sig: Take 1-2 tablets by mouth daily at bedtime for 30 days. Date of last office visit in primary care: 05/13/2023 Date of next office visit in primary care: 08/12/2023 Please advise. Thank you. Chela Goff MA. Patient's called to refill her lorazepam; not on current med list. Uses [facility] in [place]. documented in this encounter [facility] 05-13-2023 Note HNO ID: [id number] Author: LAI TURCIOS MD Service: ? Author Type: Physician Type: Progress Notes Filed: 05/19/2023 15:45 Note Text: This note was created using [employer]My[employer]. Subjective Silva Garcia is a 77 year old female. Patient presents with: F/U Diabetes 3 Month SUBJECTIVE: Silva Garcia is a 77 year old year old lady here today for 3 month follow up appointment for review of medical conditions. Was called that now covered so will resume. Wondered about getting meals sent to home and covered with insurance. Doing well on current meds. Tendency to constipation and can go days without BM. No nausea noted Appetite is fine. Ensure in AM and yogurt. Eats good dinner usually. Bactrim effective to prevent UTIs. 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 Continuous prophylaxis: Oral: One-half of a single-strength tablet once daily carbidopa-levodopa (SINEMET 25-100) 25-100 mg per tablet Take 1.5 tablets by mouth three times a day. (9AM, 1PM, 5PM). memantine (NAMENDA) 10 mg tablet Take 1 tablet by mouth two times a day. Blood-Glucose Meter 1 Device as directed. Test blood sugars once daily, for DM type 2, E11.9 Lancets lancets Test blood sugar(s) one times daily. Dx: Type 2 DM - Controlled E11.9 Insulin: No blood sugar diagnostic (BLOOD GLUCOSE TEST) test strip Test blood sugar(s) one times daily. Dx: Type 2 DM - Controlled E11.9 Insulin: No Adhesive Bandage (ADHESIVE PADS) 4.5 in x 5.5 in maninder and maninder cushion care adhesive gauze pads, fill for 32 with 5 refills, for open wound on coccyx, can be changed daily. risperiDONE (RISPERDAL) 0.5 mg tablet Take 1 tablet by mouth twice daily. metFORMIN (GLUCOPHAGE) 500 mg tablet Take 1 tablet by mouth twice daily with meals. metoprolol tartrate, short acting, (LOPRESSOR) 25 mg tablet Take 1 tablet by mouth twice daily. solifenacin (VESICARE) 5 mg tablet Take 1 tablet by mouth once daily. glipiZIDE (GLUCOTROL XL) 2.5 mg 24 hr tablet Take 1 tablet by mouth daily with breakfast. aspirin, enteric coated (ECOTRIN LOW STRENGTH) 81 mg EC tablet Take 1 tablet by mouth once daily. simvastatin (ZOCOR) 20 mg tablet Take 1 tablet by mouth daily at bedtime. levothyroxine (SYNTHROID) 50 mcg tablet Take 1 tablet by mouth once daily. polyethylene glycol 3350 (MIRALAX, GLYCOLAX) 17 gram/dose powder Will try taking Thursday and Fridays. Can increase dose as discussed. (Patient not taking: Reported on 02/23/2023) WALKER ROLLATOR SEAT WITH 6 WHEELS - RED Rollator No current facility-administered medications for this visit. Review of Systems Objective BP 106/54 (BP Site: Left Arm, BP Position: Sitting, BP Cuff Size: Large Adult) Pulse 68 Temp 36.8 ?C (98.3 ?F) Resp 12 Ht 154.9 cm (5' 1 ) SpO2 95% BMI 24.56 kg/m? Physical Exam Constitutional: Appearance: Normal appearance. HENT: Head: Normocephalic. Eyes: Conjunctiva/sclera: Conjunctivae normal. Cardiovascular: Rate and Rhythm: Normal rate and regular rhythm. Heart sounds: Normal heart sounds. Pulmonary: Effort: Pulmonary effort is normal. Breath sounds: Normal breath sounds. Musculoskeletal: Right lower leg: No edema. Left lower leg: No edema. Skin: General: Skin is warm and dry. Neurological: General: No focal deficit present. Mental Status: She is alert and oriented to person, place, and time. Motor: Weakness (generalized) present. Psychiatric: Mood and Affect: Mood normal. Behavior: Behavior is cooperative. Cognition and Memory: Cognition is impaired. Hemoglobin A1C Date Value 05/13/2023 5.8 % 01/30/2023 6.5 % 10/14/2022 6.8 % 03/24/2022 6.9 % 10/05/2021 7.2 % 08/22/2019 6.0 % 07/30/2016 6.5 % 02/04/2016 6.5 02/04/2016 Test sent to [facility]. % 10/05/2015 Test sent to [facility]. % 02/02/2015 Test sent to [facility]. % 03/24/2014 Test sent to [facility]. % Component Latest Ref Rng AND Units 01/30/2023 05/13/2023 WBC 3.70 - 11.00 k/uL 15.56 (H) 10.75 RBC 3.90 - 5.20 m/uL 3.84 (L) 4.22 Hemoglobin 11.5 - 15.5 g/dL 10.9 (L) 12.0 Hematocrit 36.0 - 46.0 % 35.3 (L) 37.8 MCV 80.0 - 100.0 fL 91.9 89.6 MCH 26.0 - 34.0 pg 28.4 28.4 MCHC 30.5 - 36.0 g/dL 30.9 31.7 RDW-CV 11.5 - 15.0 % 14.6 14.1 Platelet Count 150 - 400 k/uL 488 (H) 304 MPV 9.0 - 12.7 fL 10.2 10.2 Neut% % 81.8 74.4 Abs Neut (ANC) 1.45 - 7.50 k/uL 12.74 (H) 8.00 (H) Lymph% % 9.8 17.4 Abs Lymph 1.00 - 4.00 k/u (more content not included)... [facility] 03-20-2023 Miscellaneous Notes This rx was filled 02/23/[address] Alvarez. Pharmacy notified. They will get this ready for the pt. Patient has been identified by name and date of : Yes Requested Prescriptions Pending Prescriptions Disp Refills carbidopa-levodopa (SINEMET 25-100) 25-100 mg per tablet 405 tablet 3 Sig: Take 1.5 tablets by mouth three times a day. (9AM, 1PM, 5PM). RX INSTRUCTIONS: Patient aware RX will be sent to pharmacy. No need to notify patient. Екатерина Damon documented in this encounter [facility] 03-13-2023 Miscellaneous Notes Addended by: SARA DINERO on: 03/13/2023 01:17 PM Modules accepted: Orders Last office visit: 01/30/23 Next appointment scheduled: 05/13/23 LORazepam (ATIVAN) 0.5 mg 60 tablet 0 12/31/2022 01/30/2023 Sig: Take 1-2 tablets by mouth daily at bedtime for 30 days. Sent to pharmacy as: LORazepam (ATIVAN) 0.5 mg Class: [facility] in [place]. Екатерина Damon documented in this encounter [facility] 02-24-2023 Miscellaneous Notes No answer. Left message that letter is ready to be picked up in medical records on the first floor. OK printed letter Spouse calling for a letter to have their mail delivered to their apt. Due to hardship unable to get mail where it is placed. Pt has Parkinson's and spouse Jeet has arthritis, vertigo and a-fib and it is hard to get the the area where the mail is delivered. Let Spouse know when the letter is ready for supervisor picking crew. Deepthi Palma LPN documented in this encounter [facility] 02-23-2023 Note HNO ID: [id number] Author: Jeet Alvarez Jr., MD Service: ? Author Type: Physician Type: Progress Notes Filed: 02/23/2023 4:40 PM Note Text: ESTABLISHED PATIENT VISIT CHIEF COMPLAINT: Follow Up HISTORY OF PRESENT ILLNESS: Silva Garcia is a 77 year old female, BMI 23.97 kg/m2 with a PMH significant for and per last office visit with Maged John CNP on 11/20/22: G20 Parkinson's disease (HCC) (primary encounter diagnosis) R26.9 Abnormality of gait F03.90 Dementia without behavioral disturbance (HCC) Comment: Patient previously presenting to office for tremor with history and exam suggestive of PD vs Parkinson plus (given hallucinations and dementia) vs drug induced parkinsonism (given use of Risperdal). MRI of brain noting generalized volume loss and moderate chronic microvascular ischemic changes. Given findings on imaging, concern for possible vascular component as well as Parkinson plus verses idiopathic PD. She continues to take Sinemet 1.5 tablets TID without SE or concerns. Her reports minimal change in symptoms when increasing from 1 tablet TID to 1.5 tablets. Exam is somewhat difficult today due to pt fatigue and participation. She presents in WC and deferred gait assessment as she does not have her walker and reports increased lower extremity weakness this evening. Given recent urological hx and temperature in office today of 100.2 (HR also >100) as well as increased fatigue and weakness voiced concern for infection. I have asked her to continue to monitor temperature upon return home and present to EC if sx persist. Overall, she denies significant changes to memory, however, her reports that today memory has been worse. She continues to take Namenda 10mg BID without SE or concerns. She denies hallucinations or dangerous behaviors. Modified MOCA completed today with slight decline in score since previous visit. Notably, pt is fatigued and does not attempt to answer all questions. Reviewed with her who reports typically memory is ok, but again, today has been poor. Will continue Namenda as previously prescribed, however, again have asked her to monitor for any further changes and present to EC if sx persist. Encouraged completion of word puzzles and physical activity within limitations. Recommend continuing physical therapy for stability and balance as well as to gain mobility to further participate in physical activities for brain health. Overall, uncertain if weakness is secondary to fatigue at appointment today and decreased participation in exam. Regardless, per report pt rarely leaves her chair at home and discussed the importance of increased physical activity. Pt's willing to have home PT as leaving the house is difficulty. Order entered. M54.50 Lumbar pain Comment: Chronic low back with MRI L spine noting mild to moderate changes. At time of last appointment she had worked with PT but did not continue HEP. Consult was placed to spine medicine given persistent pain and difficulty with ambulation. She has not yet scheduled with spine medicine, however, upon discussion today she denies pain. Regardless, given MRI results and lower extremity weakness, would still recommend spine evaluation. New order placed at this time. Z86.73 History of stroke Comment: Hx of L basal ganglia infarct. She continues to take ASA 81mg and statin. Denies new or changing stroke symptoms since time of previous appointment. Continue to follow with PCP for BG, BP, and cholesterol management. Goals remain BP <140/90 and BG <140. Patient arrived, but was lost in the building for approximately 25 minutes before presenting to office. Per those first seeing patient today, she has yet to see spine and is not taking her Namenda (later uncertain but believes pt taking). Regarding Sinemet, taking 1.5 tabs as below around morning, 1PM and 6PM. Patient states doing well. However, complains again of weakness in legs. states at one point was down and could not get back up due to a kidney infection. [facility] urology did cystoscopy but there was a blockage, and patient was then referred to another urologist who told patient and they did not see blockage on MRI but during second cystoscopy there was a lot of junk up in the kidneys. Then had a similar episode weeks later, and had to call EMS, and was admitted, and was placed on some intravenous stuff for 4-5 days at [facility] (appears again treated for UTI with sepsis per description from ). They released her and strength came back. Now walking to bathroom with walker. Still with bladder incontinence. They do feel Sinemet has helped with motor function overall. Likewise feels Namenda has helped cognition. They unfortunately are somewhat limited historians. Common theme is that patient is not very strong and that she shakes. Not shuffling as much. Denies (more content not included)... [facility] 02-23-2023 Note HNO ID: [id number] Author: Ronel Chambers LPN Service: ? Author Type: LICENSED NURSE Type: Progress Notes Filed: 02/23/2023 4:40 PM Note Text: There is no data to display for this encounter [facility] 02-23-2023 History of Presen t illness Narrative ESTABLISHED PATIENT VISIT CHIEF COMPLAINT: Follow Up HISTORY OF PRESENT ILLNESS: Silva Garcia is a 77 year old female, BMI 23.97 kg/m2 with a PMH significant for and per last office visit with Maged John CNP on 11/20/22: G20 Parkinson's disease (HCC) (primary encounter diagnosis) R26.9 Abnormality of gait F03.90 Dementia without behavioral disturbance ([facility]) Comment: Patient previously presenting to office for tremor with history and exam suggestive of PD vs Parkinson plus (given hallucinations and dementia) vs drug induced parkinsonism (given use of Risperdal). MRI of brain noting generalized volume loss and moderate chronic microvascular ischemic changes. Given findings on imaging, concern for possible vascular component as well as Parkinson plus verses idiopathic PD. She continues to take Sinemet 1.5 tablets TID without SE or concerns. Her reports minimal change in symptoms when increasing from 1 tablet TID to 1.5 tablets. Exam is somewhat difficult today due to pt fatigue and participation. She presents in WC and deferred gait assessment as she does not have her walker and reports increased lower extremity weakness this evening. Given recent urological hx and temperature in office today of 100.2 (HR also >100) as well as increased fatigue and weakness voiced concern for infection. I have asked her to continue to monitor temperature upon return home and present to EC if sx persist. Overall, she denies significant changes to memory, however, her reports that today memory has been worse. She continues to take Namenda 10mg BID without SE or concerns. She denies hallucinations or dangerous behaviors. Modified MOCA completed today with slight decline in score since previous visit. Notably, pt is fatigued and does not attempt to answer all questions. Reviewed with her who reports typically memory is ok, but again, today has been poor. Will continue Namenda as previously prescribed, however, again have asked her to monitor for any further changes and present to EC if sx persist. Encouraged completion of word puzzles and physical activity within limitations. Recommend continuing physical therapy for stability and balance as well as to gain mobility to further participate in physical activities for brain health. Overall, uncertain if weakness is secondary to fatigue at appointment today and decreased participation in exam. Regardless, per report pt rarely leaves her chair at home and discussed the importance of increased physical activity. Pt's willing to have home PT as leaving the house is difficulty. Order entered. M54.50 Lumbar pain Comment: Chronic low back with MRI L spine noting mild to moderate changes. At time of last appointment she had worked with PT but did not continue HEP. Consult was placed to spine medicine given persistent pain and difficulty with ambulation. She has not yet scheduled with spine medicine, however, upon discussion today she denies pain. Regardless, given MRI results and lower extremity weakness, would still recommend spine evaluation. New order placed at this time. Z86.73 History of stroke Comment: Hx of L basal ganglia infarct. She continues to take ASA 81mg and statin. Denies new or changing stroke symptoms since time of previous appointment. Continue to follow with PCP for BG, BP, and cholesterol management. Goals remain BP <140/90 and BG <140. Patient arrived, but was lost in the building for approximately 25 minutes before presenting to office. Per those first seeing patient today, she has yet to see spine and is not taking her Namenda (later uncertain but believes pt taking). Regarding Sinemet, taking 1.5 tabs as below around morning, 1PM and 6PM. Patient states doing well. However, complains again of weakness in legs. states at one point was down and could not get back up due to a kidney infection. States urology did cystoscopy but there was a blockage, and patient was then referred to another urologist who told patient and they did not see blockage on MRI but during second cystoscopy there was a lot of junk up in the kidneys. Then had a similar episode weeks later, and had to call EMS, and was admitted, and was placed on some intravenous stuff for 4-5 days at [facility] (appears again treated for UTI with sepsis per description from ). They released her and strength came back. Now walking to bathroom with walker. Still with bladder incontinence. They do feel Sinemet has helped with motor function overall. Likewise feels Namenda has helped cognition. They unfortunately are somewhat limited historians. Common theme is that patient is not very strong and that she shakes. Not shuffling as much. Denies lightheadedness. No back pain. Just feels weak. Pt denies hallucinations, but states [facility]... yes... sometimes she comes off the wall and sees snakes and then it is over with and she does not see anymore... maybe once every 2 months... lasts maybe a few minutes and stops as soon as I tell her there are no snakes . BP low today. Also now with wound doctor - I sit in the chair so much I get bed sores . No issues eating. No choking or dysphagia. MODIFIED MOCA: Orientation: February, Thu (it is Thursday), 2022; [place], [place]; [facility] Number repeat and sentence repeat intact. Abstract thought intact. Serial 7s: 100-93- I dont know . Naming intact. Clock drawing intact. REVIEW OF SYSTEMS GENERAL:No weight loss, malaise or fevers. HEENT:Negative for frequent or significant headaches, No changes in hearing or vision, no nose bleeds or other nasal problems NECK:Negative for lumps, goiter, pain and significant neck swelling RESPIRATORY: Negative for cough, wheezing or shortness of breath. CARDIOVASCULAR: Negative for chest pain, leg swelling or palpitations. GASTROINTESTINAL: Negative for abdominal discomfort, blood in stools or black stools or change in bowel habits GENITOURINARY: No history of dysuria, frequency or incontinence MUSCULOSKELETAL: Negative for joint pain or swelling, back pain or muscle pain. NEUROLOGIC:Negative for focal numbness or weakness, headaches and dizziness or syncope, vision changes, speech/languag changes - EXCEPT that as per HPI above. SKIN:Negative for lesions, rash, and itching. PSYCHIATRIC: Negative for sleep disturbance, mood disorder and recent psychosocial stressors. HEMATOLOGIC/LYMPHATIC/IMMUNOLOG IC:Negative for prolonged bleeding, bruising easily or swollen nodes. ENDOCRINE: Negative for cold or heat intolerance, polyuria, polydipsia and goiter. The remainder of the ROS was reviewed and is negative. LAB/IMAGING: Those performed since patient's last visit have been reviewed. WBC (k/uL) Date Value 01/30/2023 15.56 (H) RBC (m/uL) Date Value 01/30/2023 3.84 (L) Hemoglobin (g/dL) Date Value 01/30/2023 10.9 (L) Hematocrit (%) Date Value 01/30/2023 35.3 (L) MCV (fL) Date Value 01/30/2023 91.9 MCH (pg) Date Value 01/30/2023 28.4 MCHC (g/dL) Date Value 01/30/2023 30.9 RDW-CV (%) Date Value 01/30/2023 14.6 Platelet Count (k/uL) Date Value 01/30/2023 488 (H) MPV (fL) Date Value 01/30/2023 10.2 Glucose (mg/dL) Date Value 01/30/2023 103 (H) BUN (mg/dL) Date Value 01/30/2023 42 (H) Creatinine (mg/dL) Date Value 01/30/2023 1.17 (H) Sodium (mmol/L) Date Value 01/30/2023 139 Potassium (mmol/L) Date Value 01/30/2023 4.3 Chloride (mmol/L) Date Value 01/30/2023 103 CO2 (mmol/L) Date Value 01/30/2023 19 (L) Protein, Total (g/dL) Date Value 10/14/2022 7.6 Albumin (g/dL) Date Value 10/14/2022 3.7 (L) Calcium, Total (mg/dL) Date Value 01/30/2023 10.1 Alkaline Phosphatase (U/L) Date Value 10/14/2022 84 Bilirubin, Total (mg/dL) Date Value 10/14/2022 0.3 AST (U/L) Date Value 10/14/2022 13 ALT (U/L) Date Value 10/14/2022 15 Hep C Antibody IA (no units) Date Value 07/30/2016 Negative MEDICATIONS: sulfamethoxazole-trimethoprim (BACTRIM) 400-80 mg per tablet Take 0.5 tablets by mouth once daily. Continuous prophylaxis: Oral: One-half of a single-strength tablet once daily Blood-Glucose Meter 1 Device as directed. Test blood sugars once daily, for DM type 2, E11.9 Lancets lancets Test blood sugar(s) one times daily. Dx: Type 2 DM - Controlled E11.9 Insulin: No blood sugar diagnostic (BLOOD GLUCOSE TEST) test strip Test blood sugar(s) one times daily. Dx: Type 2 DM - Controlled E11.9 Insulin: No carbidopa-levodopa (SINEMET 25-100) 25-100 mg per tablet Take 1.5 tablets by mouth three times daily. (8AM, Noon, 4PM). Adhesive Bandage (ADHESIVE PADS) 4.5 in x 5.5 in maninder and maninder cushion care adhesive gauze pads, fill for 32 with 5 refills, for open wound on coccyx, can be changed daily. risperiDONE (RISPERDAL) 0.5 mg tablet Take 1 tablet by mouth twice daily. metFORMIN (GLUCOPHAGE) 500 mg tablet Take 1 tablet by mouth twice daily with meals. metoprolol tartrate, short acting, (LOPRESSOR) 25 mg tablet Take 1 tablet by mouth twice daily. solifenacin (VESICARE) 5 mg tablet Take 1 tablet by mouth once daily. glipiZIDE (GLUCOTROL XL) 2.5 mg 24 hr tablet Take 1 tablet by mouth daily with breakfast. aspirin, enteric coated (ECOTRIN LOW STRENGTH) 81 mg EC tablet Take 1 tablet by mouth once daily. simvastatin (ZOCOR) 20 mg tablet Take 1 tablet by mouth daily at bedtime. levothyroxine (SYNTHROID) 50 mcg tablet Take 1 tablet by mouth once daily. WALKER ROLLATOR SEAT WITH 6 WHEELS - RED Rollator polyethylene glycol 3350 (MIRALAX, GLYCOLAX) 17 gram/dose powder Will try taking Thursday and Fridays. Can increase dose as discussed. 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 Hyperlipidemia Left Ear Hearing Loss 09/14/2007 Myocardial infarct (HCC) 08/01/11 Other forms of migraine Panic disorder without agoraphobia FAMILY HISTORY Problem Relation Age of Onset Cataract Mother Cataract Other Genetic Sister essential tremor Genetic Mother Parkinson Genetic Maternal Uncle esential tremor other (Other [Other]) Sister Parkinson's Disease SOCIAL HISTORY Social History Tobacco Use Smoking status: Former Types: Cigarettes Quit date: 09/13/2005 Years since quittin.4 Smokeless tobacco: Never Vaping Use Vaping Use: Never used Substance Use Topics Alcohol use: Yes Comment: Very Little Drug use: Never PHYSICAL EXAMINATION BP 93/60 Pulse 61 Resp 16 Wt 59 kg (130 lb) SpO2 96% BMI 23.97 kg/m GENERAL EXAM: General appearance: NAD, pleasant. HEENT: NC/AT, nasal congestion absent, no oral lesions, membranes moist. NECK: ROM nml. Lungs: CTA bilaterally. CV: RRR nl S1, S2 Extr: No cyanosis, clubbing or edema. Skin: Cool to touch. NEUROLOGICAL EXAM: General: Awake, alert, oriented x3 (person,place,time), speech fluent, no dysarthria; comprehension, naming, repetition intact. Modified MOCA as above. CN: PERRL, EOMI and without nystagmus, VFF to confrontation, Mild facial asymmetry unchanged and secondary to known stroke, hearing is intact to finger rub bilaterally, palate and tongue movements are intact and symmetric. SCM and trapezius strength normal. Motor: Tone increased in upper exts in cogwheel nature. Strength 4/5 throughout with no focal neuor deficits. Reflexes: 1/4 and symmetric, plantar stimulation is mute. Coordination: FNF, CATHY, HTS intact. Resting tremor in RUE. Sensation: LT, vibration intact throughout. No evidence of neglect. Gait: Deferred as pt did not bring assist device and does not want to leave wheelchair without such. Assessment and Plan: ASSESSMENT/PLAN: 1. Parkinson's disease with fluctuating manifestations, unspecified whether dyskinesia present - ICD9: 332.0, ICD10: G20.A2 (primary diagnosis) Neurologic exam stable. Generalized weakness, and difficult to determine what is secondary to PD vs deconditioning. Given low BP (asx) would not increase Sinemet dose at this time. Instead will focus on increasing therapy with consult placed for both PT and OT. No changes in Sinemet dosing today and as above. 2. Abnormality of gait - ICD9: 781.2, ICD10: R26.9 PT/OT as above. 3. Dementia without behavioral disturbance (HCC) - ICD9: 294.20, ICD10: F03.90 Cognition appears stable per MOCA. Continue Namenda 10mg BID (unclear if actually taking med, but later indicated that she is). Would avoid Aricept for now given low BP. 4. Visual hallucinations - ICD9: 368.16, ICD10: R44.1 Uncertain if secondary to dementia, PD, meds or a symptom of delirium due to frequent infections. I suspect latter given nature of hallucinations and frequency. Will need to continue to monitor. 5. Spinal stenosis of lumbar region, unspecified whether neurogenic claudication present - ICD9: 724.02, ICD10: M48.061 No pain or discomfort. Pt not wanting to see spine at this time, and states would never want any form of spine surgery. PT as above. 6. History of stroke - ICD9: V12.54, ICD10: Z86.73 As per prior recs, continue ASA, statin (follow up with PCP regarding lipid treatment). BP goal <140/90. Glucose goal <140. 7. Hypotension, unspecified hypotension type - ICD9: 458.9, ICD10: I95.9 Low BP in office. Improved after second reading during visit. Asx including no lightheadedness/dizziness or palpitations (compensatory tachycardia). Denies F/C/S to suggest sepsis. Encouraged follow up with PCP. Fluid intake encouraged. Pt declines ER evaluation. Reports no s/s to suggest hemorrhage of any sort. Jeet Alvarez MD I spent a total of 40+ minutes on the date of the service which included [id number] patient care, completing clinical documentation, obtaining and/or reviewing separately obtained history, performing a medically appropriate examination, counseling and educating the patient/family/caregiver, ordering medications, tests, or procedures, communicating with other HCPs (not separately reported), and communicating results to the patient/family/caregiver. There is no data to display for this encounter documented in this encounter [facility] 01-30-2023 Note HNO ID: [id number] Author: Sara Dinero APRN.PRODUCT SAFETY ENGINEER Service: ? Author Type: Nurse Practitioner Type: Progress Notes Filed: 02/02/2023 7:08 AM Note Text: SUBJECTIVE Silva Garcia is a 77 year old female here today for a check up on her medical problems. Chief Complaint Patient presents with: Hospital F/U: [facility] follow up on going issues for kidney infection F/U 3 Month HPI Silva Garcia is a 77 year old female established patient. Here today accompanied by her for a hospital discharge follow up. She is not very verbal and he answers the majority of the questions with the visit today. She was admitted to [facility] 01/17-01/22. No out reach was done by the office following discharge. She had a sudden onset general weakness. History of Parkinson's and recurrent UTI. Saw Dr. Mohamud. Treated with cipro. She has home health services with nursing, aide, and PT coming in. Sleeping okay, appetite is good. Would like a glucometer. She has had x3 episodes not of sudden onset weakness that results in a hospital stay with UTI as the cause. Her medications were reviewed today and her list is now up to date. Medications Current Outpatient Medications Medication Sig Adhesive Bandage (ADHESIVE PADS) 4.5 in x 5.5 in maninder and maninder cushion care adhesive gauze pads, fill for 32 with 5 refills, for open wound on coccyx, can be changed daily. aspirin, enteric coated (ECOTRIN LOW STRENGTH) 81 mg EC tablet Take 1 tablet by mouth once daily. blood sugar diagnostic (BLOOD GLUCOSE TEST) test strip Test blood sugar(s) one times daily. Dx: Type 2 DM - Controlled E11.9 Insulin: No Blood-Glucose Meter 1 Device as directed. Test blood sugars once daily, for DM type 2, E11.9 carbidopa-levodopa (SINEMET 25-100) 25-100 mg per tablet Take 1.5 tablets by mouth three times daily. (8AM, Noon, 4PM). glipiZIDE (GLUCOTROL XL) 2.5 mg 24 hr tablet Take 1 tablet by mouth daily with breakfast. Lancets lancets Test blood sugar(s) one times daily. Dx: Type 2 DM - Controlled E11.9 Insulin: No levothyroxine (SYNTHROID) 50 mcg tablet Take 1 tablet by mouth once daily. LORazepam (ATIVAN) 0.5 mg Take 1-2 tablets by mouth daily at bedtime for 30 days. memantine (NAMENDA) 10 mg tablet Take 1 tablet by mouth twice daily. metFORMIN (GLUCOPHAGE) 500 mg tablet Take 1 tablet by mouth twice daily with meals. metoprolol tartrate, short acting, (LOPRESSOR) 25 mg tablet Take 1 tablet by mouth twice daily. polyethylene glycol 3350 (MIRALAX, GLYCOLAX) 17 gram/dose powder Will try taking Thursday and Fridays. Can increase dose as discussed. (Patient taking differently: Will try taking Thursday and Fridays. Can increase dose as discussed.) risperiDONE (RISPERDAL) 0.5 mg tablet Take 1 tablet by mouth twice daily. simvastatin (ZOCOR) 20 mg tablet Take 1 tablet by mouth daily at bedtime. solifenacin (VESICARE) 5 mg tablet Take 1 tablet by mouth once daily. sulfamethoxazole-trimethoprim (BACTRIM) 400-80 mg per tablet Take 0.5 tablets by mouth once daily. Continuous prophylaxis: Oral: One-half of a single-strength tablet once daily WALKER ROLLATOR SEAT WITH 6 WHEELS - RED Rollator No current facility-administered medications for this visit. ALLERGIES Allergen Reactions Lisinopril Cough ACTIVE PROBLEM LIST Chronic Renal Disease, Stage IV (Hcc) - 10/14/2022 Parkinson's Disease - 09/30/2021 Chronic Low Back Pain Without Sciatica - 09/30/2021 Ddd (Degenerative Disc Disease), Lumbar - 09/30/2021 Facet Arthropathy, Lumbar - 09/30/2021 Dementia Without Behavioral Disturbance (Hcc) - 09/30/2021 Acquired Hypothyroidism - 09/30/2021 Chronic Pruritic Rash in Adult - 07/30/2016 Comment: Diabetes Mellitus (Hcc) - 05/10/2015 S/P Cabg X 3 - 09/18/2011 Ashd (Arteriosclerotic Heart Disease) - 09/18/2011 Hypertension - 03/10/2011 Hearing Loss - 09/14/2007 Panic Disorder Without Agoraphobia Social History Tobacco Use Smoking status: Former Types: Cigarettes Quit date: 09/13/2005 Years since quittin.3 Smokeless tobacco: Never Vaping Use Vaping Use: Never used Substance Use Topics Alcohol use: Yes Comment: Very Little Drug use: Never Review of Systems Respiratory: Negative. Cardiovascular: Negative. Neurological: Positive for weakness. OBJECTIVE BP 100/60 Pulse 101 Wt 130 lb (59.0kg) SpO2 97% Physical Exam Vitals and nursing note reviewed. Constitutional: General: She is awake. She is not in acute distress. Appearance: She is not ill-appearing, toxic-appearing or diaphoretic. Comments: In wheel chair HENT: Head: Normocephalic. Right Ear: External ear normal. Left Ear: External ear normal. Nose: Nose normal. Eyes: General: Vision grossly intact. Conjunctiva/sclera: Conjunctivae normal. Pupils: Pupils are equal, round, and reactive to light. Neck: Vascular: No JVD. Trachea: Trachea normal. Cardiovascular: Rate and Rhythm: Normal rate and re (more content not included)... [facility] 01-06-2023 Note HNO ID: [id number] Author: Bobby Doherty APRN.IRRIGATING PUMP OPERATOR Service: ? Author Type: Nurse Specialist Type: Progress Notes Filed: 01/06/2023 3:11 PM Note Text: Admitted to [facility] December 21 through December 25 for cystitis. Referral was made to urology for history of right hydronephrosis recurrent UTI and now with bilateral hydronephrosis. Previously related history includes: Followed by urologist Dr. Niño. Last seen in office August 2022. She was hospitalized May 24 through May 30 for septic shock secondary to UTI. CT of abdomen pelvis at that time showed right-sided hydronephrosis. She underwent ureteral stent with Dr. Ramirez on May 27. Repeat cystoscopy completed in outpatient setting with that revealed urethral stricture. Her original stent was removed with placement of a new stent in the renal pelvis. She continued to have problems following that and was subsequently seen by Dr. Niño. He completed a cystoscopy September 12 that showed significant pyuria and debris within the kidney. The stent was removed and not replaced. She was treated with oral antibiotics. She was not seen by urology during this admission due to out of the office, on vacation. She was discharged on extended antibiotic course with the plan for follow-up with urology once returned. Noted to have debility in setting of known Parkinson's disease and cognitive impairment. She was seen by PT OT and case management through her admission. Noted to be living with her who noted she was significantly weaker with this admission. Home health current services were ordered as she declined SNF placement. Discharge diagnoses: Complicated UTI, sepsis without shock, resolved. Bilateral hydronephrosis with history of known hydronephrosis with stent placement. Chronic debility in setting of known Parkinson's disease and cognitive impairment. YAMILXE on CKD stage IIIb resolved. Type 2 diabetes hypertension and hypothyroid. Noted to have complicated UTI at admission. Presented with sepsis without shock on arrival. Urine culture positive for E. coli sensitive to ceftriaxone. Blood cultures negative. She was treated with IV fluid resuscitation and ceftriaxone with improvement in status. Renal bladder ultrasound showed moderate bilateral hydronephrosis. She was discharged on cefadroxil 1 g twice daily to complete 14-day course with stop date of January 03. She was advised to have close follow-up with urology to address hydronephrosis. [facility] 01-06-2023 History of Presen t illness Narrative Admitted to [facility] December 21 through December 25 for cystitis. Referral was made to urology for history of right hydronephrosis recurrent UTI and now with bilateral hydronephrosis. Previously related history includes: Followed by urologist Dr. Niño. Last seen in office August 2022. She was hospitalized May 24 through May 30 for septic shock secondary to UTI. CT of abdomen pelvis at that time showed right-sided hydronephrosis. She underwent ureteral stent with Dr. Ramirez on May 27. Repeat cystoscopy completed in outpatient setting with that revealed urethral stricture. Her original stent was removed with placement of a new stent in the renal pelvis. She continued to have problems following that and was subsequently seen by Dr. Niño. He completed a cystoscopy September 12 that showed significant pyuria and debris within the kidney. The stent was removed and not replaced. She was treated with oral antibiotics. She was not seen by urology during this admission due to out of the office, on vacation. She was discharged on extended antibiotic course with the plan for follow-up with urology once returned. Noted to have debility in setting of known Parkinson's disease and cognitive impairment. She was seen by PT OT and case management through her admission. Noted to be living with her who noted she was significantly weaker with this admission. Home health current services were ordered as she declined SNF placement. Discharge diagnoses: Complicated UTI, sepsis without shock, resolved. Bilateral hydronephrosis with history of known hydronephrosis with stent placement. Chronic debility in setting of known Parkinson's disease and cognitive impairment. YAMILEX on CKD stage IIIb resolved. Type 2 diabetes hypertension and hypothyroid. Noted to have complicated UTI at admission. Presented with sepsis without shock on arrival. Urine culture positive for E. coli sensitive to ceftriaxone. Blood cultures negative. She was treated with IV fluid resuscitation and ceftriaxone with improvement in status. Renal bladder ultrasound showed moderate bilateral hydronephrosis. She was discharged on cefadroxil 1 g twice daily to complete 14-day course with stop date of January 03. She was advised to have close follow-up with urology to address hydronephrosis. documented in this encounter [facility] 01-06-2023 Miscellaneous Notes Home care Certification Form 485 received from [facility]. For cert dates 12/09/2022-02/06/2023 that were signed on 12/16/2022. New Certification Patient's home health 485 form / care plan for stated certification period reviewed and signed. Relevant medical records were reviewed. No changes were indicated documented in this encounter [facility] 01-02-2023 Miscellaneous Notes Noted and agree [place] PT calling from [facility] to report plan of care for patient and physical therapy will visit patient 1 time a week for 6 weeks. No call back need unless provider has questions. Edie Velez, RN documented in this encounter [facility] 12-31-2022 Miscellaneous Notes The following approved medication requests have been transmitted electronically. Requested Prescriptions Signed Prescriptions Disp Refills LORazepam (ATIVAN) 0.5 mg 60 tablet 0 Sig: Take 1-2 tablets by mouth daily at bedtime for 30 days. Authorizing Provider: LAI TURCIOS MD Pt's spouse jeet states pt needs refill for lorazepam. [place]: 10/14/22 NOV: 01/06/23 Last Refill: 10/27/22 #60 0 refills Shirley Amilcar TOSCANO Last office visit: 10/14/22 Next appointment scheduled: 01/06/23 Was stated that patient is needing a refill or Lorazepam but levothyroxine was pended. Left message asking for Jeet to return call to clarify which medication does patient need? Patient calling for a refill of Lorazepam 0.5 mg. Not on refill list. documented in this encounter [facility] 12-29-2022 Miscellaneous Notes Francis aware of same. Will follow Noted: Has 01/06 hospital follow up with Bobby--can decide at that appointment whether needs the one the following week with Bobby. has the next follow up already set up with me. Francis with [facility] calls to ask if provider will continue following orders for SN, PT, and HH aide following discharge from [facility] for treatment for UTI and sepsis. Francis requests call back at [phone]. Teagan Figueroa, RN documented in this encounter [facility] 12-15-2022 Miscellaneous Notes Di/HH notified. Smita Fox LPN Phoned Di and left message to return call and ask to speak to a triage nurse. [place] [facility] requests Di from [facility] asking if pcp will approve nursing & home health aid? Pt has wounds that need addressed. Shirley Fitzgerald LPN documented in this encounter [facility] 12-09-2022 Miscellaneous Notes [place] aware of same. Okay for home health care PT plan. Okay for nurse evaluation of wound [place] from [facility] PT reports plan of care will be to see pt 1X wk X 9 wks to get pt up & moving to become stronger, work on mobility around the house. [place] states pt has a wound of left buttock. He is requesting a VO for a nursing evaluation? He has a nurse that is avail to see pt tomorrow if they receive the ok in time. [phone]. Shirley Fitzgerald LPN documented in this encounter [facility] 12-08-2022 Miscellaneous Notes Spoke with [facility] and gave her providers message and verbalized understanding. She states that she originally called [facility] nurse for order to follow but her nurse said she didn't think she would be able to do that as she is not at the facility she is having the PT done. Patient was originally going to go to [facility] but they were told she was too far away so was set up with [facility]. Since Dr. Turcios is going to be follow up PT she will need face to face appt with provider, she will give patient the message to schedule something sooner the 01/12/23 appt with Sara Dinero. Would assume Mariann John CNP will follow since she ordered it, but if not OK for PCP to follow. Marcia [facility]- reports she received an order from Asiya John, for patient to have PT HHC. Asking if pcp is going to follow for PT HHC? Please let Hailey know. documented in this encounter [facility] 12-05-2022 Miscellaneous Notes TC to [facility] in [place] at [phone]. Faxed orders and office notes and insurance information to [phone] for them to run insurance. Ronel Chambers LPN Thank you for the referral of your patient to [facility]. At this time, we are at capacity and are unable to accept your patient. In order to help your patient receive quality home care, we have included reputable agencies that service this area: [facility], Phone number [phone] or [facility], phone number [phone]. Please contact this agency and they will work with your patient to arrange timely services. Thank you, Kaylee Conklin LPN 12/05/2022 8:31 AM documented in this encounter [facility] 11-26-2022 Miscellaneous Notes 1st attempt left message to return call to schedule consult to spine medicine Spoke with [facility] at [phone] and they will reach out to the patient to schedule. However current order needs to be consult to [facility] and be specific at what services you are requesting like PT, OT, or speech therapy ect... Please contact patient and assist in scheduling with Spine medicine as well as [facility] (PT). Thank you! ANGELICA Préez ----- Message from Asiya John APRN.PRODUCT SAFETY ENGINEER sent at 11/24/2022 11:59 AM EDT ----- Order for home care (PT) has been placed. Please assist with setting up. Also, previously discussed pt should see spine medicine. New consult was placed and would encourage her to schedule appt when you call to notify pt about home care. Thank you! documented in this encounter [facility] 11-20-2022 Note HNO ID: [id number] Author: Asiya John APRN.HECTOR Service: ? Author Type: Nurse Practitioner Type: Progress Notes Filed: 11/24/2022 12:01 PM Note Text: [facility] [place] Follow-up Visit Follow-up note November 20, 2022 HPI: Ms. Garcia presents today for a follow-up visit. Per her previous visit on 05/15/22: G20 Parkinson's disease (HCC) (primary encounter diagnosis) R26.9 Abnormality of gait F03.90 Dementia without behavioral disturbance ([facility]) Comment: Patient previously presenting to office for tremor with history and exam suggestive of PD vs Parkinson plus (given hallucinations and dementia) vs drug induced parkinsonism (given use of Risperdal). MRI of brain noting generalized volume loss and moderate chronic microvascular ischemic changes. Given findings on imaging, concern for possible vascular component as well as Parkinson plus verses idiopathic PD. At time of last visit she was taking Sinemet 25-100mg 1.5 tablets TID. Tremors had improved and were not seen on exam at that time. Hallucinations had resolved as well. Today, her reports that she is no longer taking 1.5 tablets but instead only taking 1 TID. She has not had any further hallucinations, however, tremor is noted at appointment today. Her reports they were informed that they should decrease Sinemet dose to one tablet, however, on review of chart do not see where/when this was discussed. She denies SE with medication. After discussion will resume 1.5 tablets. If any concerns she is aware that she can decrease back down to 1 tablet and notify the office. As noted below recommend increased physical acitivity and completion of PT HEP. She denies significant changes to memory and continues to take Namenda 10mg BID. No dangerous behaviors reported. MOCA unchanged at appointment today with score of 17/29. Again encouraged completion of word puzzles and physical activity within limitations. Recommend continuing physical therapy for stability and balance as well as to gain mobility to further participate in physical activities for brain health. M54.50 Midline low back pain without sciatica, unspecified chronicity R32, R15.9 Bowel and bladder incontinence M54.50 Lumbar pain Comment: Pt continues to have low back pain as well as incontinence both of which contribute to decreased ambulation. Pt was previously seen by PT and given HEP. She has since stopped completing HEP. In addition, consult was placed to spine medicine at time of last appointment, though pt has not yet scheduled appointment. Again, discussed importance of physical activity and exercise. Have asked that work on increased movement throughout the day and resume HEP. Recommend utilizing walker that she has at home for stability. She will also be following up with urology regarding urinary issues in the upcoming month. Z86.73 History of stroke E11.9 Type 2 diabetes mellitus without complication, without long-term current use of insulin (HCC) Comment: Hx of L basal ganglia infarct. Remains on ASA 81mg and statin. Denies new stroke symptoms since time of previous appointment. Continue to follow with PCP for BG, BP, and cholesterol management. Goals remain BP <140/90 and BG <140. Since April things have been going good. Her states that today she was having a lot of problems. She has difficulty getting in the tub and has decreased strength in her legs. Today has been worse than other days. Very bent over. Spends all her time in the wheelchair. She denies back pain. Memory was off today as well. Difficulty remembering name of show today. Her states overall memory is not bad. Memory can come and go. No significant changes. Not forgetting family members names. Recognizes surroundings when driving with her . Namenda 10mg BID. Recently had kidney surgery d/t debris (?). First thought she had kidney stones. Still some incontinence. Keeps a pad on her chair. Difficulty with BM as well; getting to the bathroom in time. Trying to get a walk in shower. Denies new stroke symptoms; speech or vision changes. Slurred or garbled speech. Still taking ASA and statin. No bleeding concerns. Weaker today than normal and legs gave out. Able to stand back up. No illness today. Not doing exercises from PT. Walks to the bathroom on occasion. Gets up with Rolator and comes back. Will have her help her out of the chair to stand but once up she can walk to the bathroom by herself. Uses the bathroom by herself; leaves Rolator outside. More strength on days she doesn't have to shower. Did not see spine medicine. Tremor still present but no worsening or changes. Still on the R. No head tremor. Currently taking Sinemet 1.5mg TID. Fine motor coordination has been ok. Sleeps ok. Sleeps often during the day. Sleeps in the recliner. Not acting out dreams or yelling out. Denies hallucinations (more content not included)... [facility] 11-20-2022 History of Presen t illness Narrative Images from the original note were not included. [facility] [place] Follow-up Visit Follow-up note November 20, 2022 HPI: Ms. Garcia presents today for a follow-up visit. Per her previous visit on 05/15/22: G20 Parkinson's disease (HCC) (primary encounter diagnosis) R26.9 Abnormality of gait F03.90 Dementia without behavioral disturbance ([facility]) Comment: Patient previously presenting to office for tremor with history and exam suggestive of PD vs Parkinson plus (given hallucinations and dementia) vs drug induced parkinsonism (given use of Risperdal). MRI of brain noting generalized volume loss and moderate chronic microvascular ischemic changes. Given findings on imaging, concern for possible vascular component as well as Parkinson plus verses idiopathic PD. At time of last visit she was taking Sinemet 25-100mg 1.5 tablets TID. Tremors had improved and were not seen on exam at that time. Hallucinations had resolved as well. Today, her reports that she is no longer taking 1.5 tablets but instead only taking 1 TID. She has not had any further hallucinations, however, tremor is noted at appointment today. Her reports they were informed that they should decrease Sinemet dose to one tablet, however, on review of chart do not see where/when this was discussed. She denies SE with medication. After discussion will resume 1.5 tablets. If any concerns she is aware that she can decrease back down to 1 tablet and notify the office. As noted below recommend increased physical acitivity and completion of PT HEP. She denies significant changes to memory and continues to take Namenda 10mg BID. No dangerous behaviors reported. MOCA unchanged at appointment today with score of 17/29. Again encouraged completion of word puzzles and physical activity within limitations. Recommend continuing physical therapy for stability and balance as well as to gain mobility to further participate in physical activities for brain health. M54.50 Midline low back pain without sciatica, unspecified chronicity R32, R15.9 Bowel and bladder incontinence M54.50 Lumbar pain Comment: Pt continues to have low back pain as well as incontinence both of which contribute to decreased ambulation. Pt was previously seen by PT and given HEP. She has since stopped completing HEP. In addition, consult was placed to spine medicine at time of last appointment, though pt has not yet scheduled appointment. Again, discussed importance of physical activity and exercise. Have asked that work on increased movement throughout the day and resume HEP. Recommend utilizing walker that she has at home for stability. She will also be following up with urology regarding urinary issues in the upcoming month. Z86.73 History of stroke E11.9 Type 2 diabetes mellitus without complication, without long-term current use of insulin (HCC) Comment: Hx of L basal ganglia infarct. Remains on ASA 81mg and statin. Denies new stroke symptoms since time of previous appointment. Continue to follow with PCP for BG, BP, and cholesterol management. Goals remain BP <140/90 and BG <140. Since April things have been going good. Her states that today she was having a lot of problems. She has difficulty getting in the tub and has decreased strength in her legs. Today has been worse than other days. Very bent over. Spends all her time in the wheelchair. She denies back pain. Memory was off today as well. Difficulty remembering name of show today. Her states overall memory is not bad. Memory can come and go. No significant changes. Not forgetting family members names. Recognizes surroundings when driving with her . Namenda 10mg BID. Recently had kidney surgery d/t debris (?). First thought she had kidney stones. Still some incontinence. Keeps a pad on her chair. Difficulty with BM as well; getting to the bathroom in time. Trying to get a walk in shower. Denies new stroke symptoms; speech or vision changes. Slurred or garbled speech. Still taking ASA and statin. No bleeding concerns. Weaker today than normal and legs gave out. Able to stand back up. No illness today. Not doing exercises from PT. Walks to the bathroom on occasion. Gets up with Rolator and comes back. Will have her help her out of the chair to stand but once up she can walk to the bathroom by herself. Uses the bathroom by herself; leaves Rolator outside. More strength on days she doesn't have to shower. Did not see spine medicine. Tremor still present but no worsening or changes. Still on the R. No head tremor. Currently taking Sinemet 1.5mg TID. Fine motor coordination has been ok. Sleeps ok. Sleeps often during the day. Sleeps in the recliner. Not acting out dreams or yelling out. Denies hallucinations. However, her states once in a great while they can occur. Did have episode in Feb where she fell and was unable to get up. Taken to [place] ED where CT brain was completed and normal. Previously had home PT. Pt is notably tired at appointment today and her reports she did shower prior which typically leads to increased fatigue. Modified MOCA 11/20/22 Visuospatial Correct clock shape; incorrect numbers, cube, hands (1/4) Naming (0-3) (3/3) Attention forwards: 2 1 8 5 4 (0-1) (1/1) Attention backwards: 7 4 2 (0-1) (0/1) Serial subtraction by 7: [id number] (3 points for correct 4 or 5; 2 points for 2 or 3 correct; 1 point for 1 correct) 100-93 (0/3) Language: repeat: I only know that Toi is the one to help today (0-1) (0/1) Language: repeat: The cat always hid under the couch when dogs were in the room (0-1) (0/1) Fluency: max words beginning with the letter F (1 point if 11 or more words) ll (0/1) Abstraction: practice banana-orange=fruit. 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 Adhesive Bandage (ADHESIVE PADS) 4.5 in x 5.5 in maninder and maninder cushion care adhesive gauze pads, fill for 32 with 5 refills, for open wound on coccyx, can be changed daily. risperiDONE (RISPERDAL) 0.5 mg tablet Take 1 tablet by mouth twice daily. metFORMIN (GLUCOPHAGE) 500 mg tablet Take 1 tablet by mouth twice daily with meals. carbidopa-levodopa (SINEMET 25-100) 25-100 mg per tablet Take 1.5 tablets by mouth every morning AND 1.5 tablets every afternoon AND 1.5 tablets every evening. (8AM, Noon, 4PM).. metoprolol tartrate, short acting, (LOPRESSOR) 25 mg tablet Take 1 tablet by mouth twice daily. solifenacin (VESICARE) 5 mg tablet Take 1 tablet by mouth once daily. glipiZIDE (GLUCOTROL XL) 2.5 mg 24 hr tablet Take 1 tablet by mouth daily with breakfast. memantine (NAMENDA) 10 mg tablet Take 1 tablet by mouth twice daily. aspirin, enteric coated (ECOTRIN LOW STRENGTH) 81 mg EC tablet Take 1 tablet by mouth once daily. simvastatin (ZOCOR) 20 mg tablet Take 1 tablet by mouth daily at bedtime. levothyroxine (SYNTHROID) 50 mcg tablet Take 1 tablet by mouth once daily. polyethylene glycol 3350 (MIRALAX, GLYCOLAX) 17 gram/dose powder Will try taking Thursday and Fridays. Can increase dose as discussed. (Patient taking differently: Will try taking Thursday and Fridays. Can increase dose as discussed.) WALKER ROLLATOR SEAT WITH 6 WHEELS - RED Rollator No current facility-administered medications on file prior to visit. Social History Tobacco Use Smoking status: Former Types: Cigarettes Quit date: 09/13/2005 Years since quittin.1 Smokeless tobacco: Never Vaping Use Vaping Use: Never used Substance Use Topics Alcohol use: Yes Comment: Very Little Drug use: Never ALLERGIES Allergen Reactions Lisinopril Cough Review of Systems: Cardiopulmonary: denies chest pain Respiratory: denies shortness of breath GI/: denies recent nausea, vomiting, diarrhea, constipation, + incontinence Musculoskeletal: denies + weakness Back/spine: denies low back or cervical pains Neuro: Denies + tremors, loss of feeling, dizziness, seizure, blackout, paresthesia, facial paresthesia, facial weakness, difficulty in speech, slurring of words, dysarthria, dysphagia, + memory loss, headache, vision changes, loss of hearing Physical Exam: 11/20/22 1729 BP: 107/69 Pulse: 109 Temp: 37.8 C (100.1 F) Patient is alert and in no distress. Dress is appropriate. Breathing appears regular and unstressed Neurologic examination: MOCA above. CN: Pupils equal and reactive to light, extraocular movements intact with no nystagmus with exception of inability for R eye to track in and up, face is symmetric with no facial droop (not currently wearing dentures and mild left facial weakness-per pt and this is baseline), hearing decreased on L compared to R, symmetric elevation of the soft palate, tongue is midline with no deviation, shoulder shrug is symmetric. Motor exam shows 4/5 strength symmetric through the upper and lower extremities in all groups tested. Generalized weakness present throughout. Sensory intact to light touch in all extremities. Vibratory sensation is intact and symmetric all extremities. Deep tendon reflexes are decreased symmetrically at the biceps, brachioradialis, triceps, patella, and achilles bilaterally. Coordination: No dysmetria on finger to nose. No drift seen. CATHY of pronation and supination, finger and hand tapping impaired bilaterally. Toe tapping impaired bilaterally. Mild rigidity to BUE. Resting tremor to BUE intermittently. No LE tremors noted at appt today. SHELL gait d/t pt fatigue and participation. Stooped posture. Labs/studies: CT Brain 05/24/22: FINDINGS: There are calcifications noted in the distal vertebral arteries. There are calcifications noted in the cavernous carotid arteries. This is consistent for atherosclerotic disease. Normal calvarium. Normal soft tissues. There is mild cerebral atrophy with widening of the extra-axial spaces and ventricular dilatation. There are areas of decreased attenuation within the white matter tracts of the supratentorial brain, consistent with microvascular disease changes. Normal basal ganglia and thalami. Normal brainstem. There is mild cerebellar atrophy. There is no intracranial hemorrhage. There are no findings of an acute ischemic infarction. Degenerative changes of the mandibular condyles. ASPECTS Score for Acute Strokes: 10/10 IMPRESSION: There are no acute findings. Chronic involutional changes of the brain. Component Latest Ref Rng & Units 10/14/2022 WBC 3.70 - 11.00 k/uL 13.19 (H) RBC 3.90 - 5.20 m/uL 4.28 Hemoglobin 11.5 - 15.5 g/dL 12.0 Hematocrit 36.0 - 46.0 % 39.0 MCV 80.0 - 100.0 fL 91.1 MCH 26.0 - 34.0 pg 28.0 MCHC 30.5 - 36.0 g/dL 30.8 RDW-CV 11.5 - 15.0 % 14.4 Platelet Count 150 - 400 k/uL 299 MPV 9.0 - 12.7 fL 10.4 Neut% % 78.6 Abs Neut (ANC) 1.45 - 7.50 k/uL 10.38 (H) Lymph% % 13.9 Abs Lymph 1.00 - 4.00 k/uL 1.84 [place]% % 5.4 Abs [place] <0.87 k/uL 0.71 Eosin% % 0.8 Abs Eosin <0.46 k/uL 0.10 Baso% % 0.5 Abs Baso <0.11 k/uL 0.06 Immature Gran % % 0.8 IMMATURE GRANS (ABS) <0.10 k/uL 0.10 (H) NRBC /100 WBC 0.0 Absolute nRBC <0.01 k/uL <0.01 DTYPE Auto Protein, Total 6.3 - 8.0 g/dL 7.6 Albumin 3.9 - 4.9 g/dL 3.7 (L) Calcium 8.5 - 10.2 mg/dL 9.9 Bilirubin, Total 0.2 - 1.3 mg/dL 0.3 Alkaline Phosphatase 34 - 123 U/L 84 AST 13 - 35 U/L 13 ALT 7 - 38 U/L 15 Glucose 74 - 99 mg/dL 158 (H) BUN 7 - 21 mg/dL 43 (H) Creatinine 0.58 - 0.96 mg/dL 1.33 (H) Sodium 136 - 144 mmol/L 139 Potassium 3.7 - 5.1 mmol/L 5.2 (H) Chloride 97 - 105 mmol/L 103 CO2 22 - 30 mmol/L 23 Anion Gap 9 - 18 mmol/L 13 eGFR >=60 mL/min/1.73m 42 (L) Hemoglobin A1C 4.3 - 5.6 % 6.8 (H) Estimated Average Glucose mg/dL 148 TSH 0.270 - 4.200 mIU/L 1.260 MRI Brain 06/20/21: IMPRESSION: No acute intracranial abnormality. Likely chronic lacunar infarcts in the left basal ganglia, moderate presumed chronic microvascular ischemic changes in the white matter, and generalized volume loss, as detailed. MRI Lumbar Spine 06/20/21: Reverse S-shaped scoliosis of the thoracolumbar spine, leftward apex in the lower thoracic spine at approximately T10-11, rightward apex at approximately L2-3. Multilevel spondylotic changes in the lumbar spine as detailed, noting mild to moderate canal narrowing at L3-4. Varying degrees of foraminal narrowing, noting moderate right foraminal narrowing at L4-5. Additional details as above. Anatomic Thoracic/Lumbar Variant: None. L4-5 is considered the level of the iliac crest and assume there are 5 lumbar-type vertebrae. Assessment/Plan: G20 Parkinson's disease (HCC) (primary encounter diagnosis) R26.9 Abnormality of gait F03.90 Dementia without behavioral disturbance (HCC) Comment: Patient previously presenting to office for tremor with history and exam suggestive of PD vs Parkinson plus (given hallucinations and dementia) vs drug induced parkinsonism (given use of Risperdal). MRI of brain noting generalized volume loss and moderate chronic microvascular ischemic changes. Given findings on imaging, concern for possible vascular component as well as Parkinson plus verses idiopathic PD. She continues to take Sinemet 1.5 tablets TID without SE or concerns. Her reports minimal change in symptoms when increasing from 1 tablet TID to 1.5 tablets. Exam is somewhat difficult today due to pt fatigue and participation. She presents in WC and deferred gait assessment as she does not have her walker and reports increased lower extremity weakness this evening. Given recent urological hx and temperature in office today of 100.2 (HR also >100) as well as increased fatigue and weakness voiced concern for infection. I have asked her to continue to monitor temperature upon return home and present to EC if sx persist. Overall, she denies significant changes to memory, however, her reports that today memory has been worse. She continues to take Namenda 10mg BID without SE or concerns. She denies hallucinations or dangerous behaviors. Modified MOCA completed today with slight decline in score since previous visit. Notably, pt is fatigued and does not attempt to answer all questions. Reviewed with her who reports typically memory is ok, but again, today has been poor. Will continue Namenda as previously prescribed, however, again have asked her to monitor for any further changes and present to EC if sx persist. Encouraged completion of word puzzles and physical activity within limitations. Recommend continuing physical therapy for stability and balance as well as to gain mobility to further participate in physical activities for brain health. Overall, uncertain if weakness is secondary to fatigue at appointment today and decreased participation in exam. Regardless, per report pt rarely leaves her chair at home and discussed the importance of increased physical activity. Pt's willing to have home PT as leaving the house is difficulty. Order entered. M54.50 Lumbar pain Comment: Chronic low back with MRI L spine noting mild to moderate changes. At time of last appointment she had worked with PT but did not continue HEP. Consult was placed to spine medicine given persistent pain and difficulty with ambulation. She has not yet scheduled with spine medicine, however, upon discussion today she denies pain. Regardless, given MRI results and lower extremity weakness, would still recommend spine evaluation. New order placed at this time. Z86.73 History of stroke Comment: Hx of L basal ganglia infarct. She continues to take ASA 81mg and statin. Denies new or changing stroke symptoms since time of previous appointment. Continue to follow with PCP for BG, BP, and cholesterol management. Goals remain BP <140/90 and BG <140. Office Visit on 11/20/22 [facility] Asiya John APRN.HECTOR I spent a total of 46 minutes on the date of the service which included preparing to see the patient, [id number] patient care, completing clinical documentation, obtaining and/or reviewing separately obtained history, performing a medically appropriate examination, counseling and educating the patient/family/caregiver, and ordering medications, tests, or procedures. documented in this encounter [facility] 10-27-2022 Miscellaneous Notes Called and left a detailed voicemail notifying patient of providers message. Hospital phone number was left in case patient had any questions. Dasha London, RN Addended by: LAI TURCIOS on: 10/27/2022 01:54 PM Modules accepted: Orders The following approved medication requests have been transmitted electronically. Requested Prescriptions Signed Prescriptions Disp Refills LORazepam (ATIVAN) 0.5 mg 60 tablet 0 Sig: Take 1-2 tablets by mouth daily at bedtime for 30 days. Authorizing Provider: LAI TURCIOS MD Med lasts usually up to 2 months Okay RX Silva Garcia is a patient of Lai Turcios MD today spouse Jeet is calling to request medication not on her current list: LORazepam (ATIVAN) 0.5 mg 60 tablet 0 08/25/2022 09/24/2022 Sig: Take 1-2 tablets by mouth daily at bedtime for 30 days. 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 Patient has been identified by name and birthdate. Duration of symptoms: Person calling: self Call patient at: on cell [phone] (home) [phone] (cell) Was an appointment scheduled: No Closing statement: Results or non-symptom based questions: Thank you for calling [facility], your call will be returned within the next business day. Dorina Child Pss documented in this encounter [facility] 10-22-2022 Miscellaneous Notes Pt's spouse notified. rec'd approval from the appeal for risperidone 0.5 mg. This has been approved from 04/20/22 to 04/19/23. Called the pharmacy and they report they are unable to reimburse from the beginning of the year. Called the pharmacy with no answer and unable to leave a message. Appeal completed via covermymeds. I saw patient in the office yesterday (can see my note) and we want to appeal the PA denial. The meds recommended are not options for the condition we are treating with the Risperdal so I am not sure if they have other alternatives they prefer but patient has been stable on Risperdal (history of anxiety and psychosis) and stopping this or changing this could worsen that. Patient states that [employer] received the PA for risperiDONE (RISPERDAL) 0.5 mg tablet but they say it is dangerous for someone over 65. Instead they are suggesting ibandronape 150 mg and alenbronate 10 mg. Please return call to patient's spouse with response. Silva Garcia, spouse Jeet is calling Lai Turcios MD today to check the status of the PA, per spouse the pharmacy is stating they still need the PA from provider to fill this medication. [employer] phone [phone] Patient advised to call [facility] as well Patient has been identified by name and birthdate. Duration of symptoms: ongoing Person calling: spouse: Jeet Call patient at: on cell [phone] (home) [phone] (cell) Was an appointment scheduled: No Closing statement: Prior Authorization Calls: Thank you for calling [facility], your call will be returned within the next 24 hours or next business day. Ana Ramachandransec Rec'd covermymed PA for risperidone 0.5mg. called the pharmacy and pt paid out of pocket with a discount card. It was 14$. PA completed. SILVA GARCIA Almendarez: [id number] - PA - Rx #: [id number] help? Call us at Status Sent to [facility] risperiDONE 0.5MG tablets Form [employer] Electronic PA Form Original Claim Info [id number]: Patient appeal noticerequired by CMS. For RxLocal Coupon [place] of: $20.65 submit to BIN: [id number] PCN: CP Group: [id number] --Service provided at no cost and no switch fee to the pharmacy-- documented in this encounter [facility] 10-16-2022 Miscellaneous Notes No answer. Left providers message and ask patient to call with any questions or concerns. Daniel. Please call patient and let them know recent labs looked stable. No changes needed at this time and to keep next scheduled appointment. Thanks. documented in this encounter [facility] 10-14-2022 Note HNO ID: [id number] Author: Sara Dinero APRN.HECTOR Service: ? Author Type: Nurse Practitioner Type: Progress Notes Filed: 10/14/2022 4:39 PM Note Text: SUBJECTIVE Silva Garcia is a 77 year old female here today for a check up on her medical problems. Chief Complaint Patient presents with: F/U 3 Month HPI Silva Garcia is a 77 year old female established patient of Lai Turcios MD who presents today for 3 month follow up. Accompanied by her who is her primary caregiver. Last seen 08/04/2022 with Bobby. History of DM, skin ulcer, obstruction of right ureter. CKD stable. She was in [facility] for a procedure the end of August 22. Dr. Garcia to remove a stent, new one was placed. No issues with urinating other than intermittent incontinence but this is not new. She wears adult briefs to help keep skin dry. Still some bleeding to the area on the buttock. This comes and goes. Trying to shift weight, reduce pressure. Currently placing a foam dressing to the area to help protect it. Her notes they are having some issues with her medication. Insurance does not want to approve the Risperdal due to concerns of her age and the medication. Still taking this, she has been paying out of pocket, has been on this for years. Takes her Risperdal for panic disorder, dementia, and a history of psychosis. She has been very stable on this with no break through episodes of her severe anxiety or psychosis. Her is concerned she would not do very well mentally without this. Was recommended to try alternatives ibandronape 150 mg and alenbronate 10 mg. Silva Garcia is an 77 year old female is here today for evaluation of hypothyroidism. Currently takes medication for this. Is tolerating medication well. Denies palpitations, heat and cold intolerance, fatigue, and brittle/broken hair and nails. Silva Garcia is a 77 year old female here today for a check up on her diabetes. She is compliant on taking her medications :Yes Any low blood sugar reactions? No Denies increased urinating, eating, and drinking. Most recent HbA1c tests were: Lab Results Component Value Date HBA1C 6.9 (H) 03/24/2022 HBA1C 7.2 (H) 10/05/2021 HBA1C 7.0 (H) 07/20/2021 Her medications were reviewed today and her list is now up to date. Medications Current Outpatient Medications Medication Sig metFORMIN (GLUCOPHAGE) 500 mg tablet Take 1 tablet by mouth twice daily with meals. carbidopa-levodopa (SINEMET 25-100) 25-100 mg per tablet Take 1.5 tablets by mouth every morning AND 1.5 tablets every afternoon AND 1.5 tablets every evening. (8AM, Noon, 4PM).. metoprolol tartrate, short acting, (LOPRESSOR) 25 mg tablet Take 1 tablet by mouth twice daily. solifenacin (VESICARE) 5 mg tablet Take 1 tablet by mouth once daily. glipiZIDE (GLUCOTROL XL) 2.5 mg 24 hr tablet Take 1 tablet by mouth daily with breakfast. memantine (NAMENDA) 10 mg tablet Take 1 tablet by mouth twice daily. aspirin, enteric coated (ECOTRIN LOW STRENGTH) 81 mg EC tablet Take 1 tablet by mouth once daily. simvastatin (ZOCOR) 20 mg tablet Take 1 tablet by mouth daily at bedtime. levothyroxine (SYNTHROID) 50 mcg tablet Take 1 tablet by mouth once daily. polyethylene glycol 3350 (MIRALAX, GLYCOLAX) 17 gram/dose powder Will try taking Thursday and Fridays. Can increase dose as discussed. (Patient taking differently: Will try taking Thursday and Fridays. Can increase dose as discussed.) Adhesive Bandage (ADHESIVE PADS) 4.5 in x 5.5 in maninder and maninder cushion care adhesive gauze pads, fill for 32 with 5 refills, for open wound on coccyx, can be changed daily. risperiDONE (RISPERDAL) 0.5 mg tablet Take 1 tablet by mouth twice daily. WALKER ROLLATOR SEAT WITH 6 WHEELS - RED Rollator No current facility-administered medications for this visit. ALLERGIES Allergen Reactions Lisinopril Cough ACTIVE PROBLEM LIST Chronic Renal Disease, Stage IV ([facility]) - 10/14/2022 Acute Psychosis ([facility]) - 10/14/2022 Parkinson's Disease ([facility]) - 09/30/2021 Chronic Low Back Pain Without Sciatica - 09/30/2021 Ddd (Degenerative Disc Disease), Lumbar - 09/30/2021 Facet Arthropathy, Lumbar - 09/30/2021 Dementia Without Behavioral Disturbance ([facility]) - 09/30/2021 Acquired Hypothyroidism - 09/30/2021 Chronic Pruritic Rash in Adult - 07/30/2016 Comment: Diabetes Mellitus ([facility]) - 05/10/2015 S/P Cabg X 3 - 09/18/2011 Ashd (Arteriosclerotic Heart Disease) - 09/18/2011 Hypertension - 03/10/2011 Hearing Loss - 09/14/2007 Panic Disorder Without Agoraphobia Social History Tobacco Use Smoking status: Former Types: Cigarettes Quit date: 09/13/2005 Years since quittin.0 Smokeless tobacco: Never Vaping Use Vaping Use: Never used Substance Use Topics Alcohol use: Yes Comment: Very Little Drug use: Never Review of Systems Respiratory: Negative. Cardiovascular: Negative. Skin: Positive for wound. OBJ (more content not included)... [facility] 10-14-2022 History of Presen t illness Narrative SUBJECTIVE Silva Garcia is a 77 year old female here today for a check up on her medical problems. Chief Complaint Patient presents with: F/U 3 Month HPI Silva Garcia is a 77 year old female established patient of Lai Turcios MD who presents today for 3 month follow up. Accompanied by her who is her primary caregiver. Last seen 08/04/2022 with Bobby. History of DM, skin ulcer, obstruction of right ureter. CKD stable. She was in [facility] for a procedure the end of August 22. Dr. Garcia to remove a stent, new one was placed. No issues with urinating other than intermittent incontinence but this is not new. She wears adult briefs to help keep skin dry. Still some bleeding to the area on the buttock. This comes and goes. Trying to shift weight, reduce pressure. Currently placing a foam dressing to the area to help protect it. Her notes they are having some issues with her medication. Insurance does not want to approve the Risperdal due to concerns of her age and the medication. Still taking this, she has been paying out of pocket, has been on this for years. Takes her Risperdal for panic disorder, dementia, and a history of psychosis. She has been very stable on this with no break through episodes of her severe anxiety or psychosis. Her is concerned she would not do very well mentally without this. Was recommended to try alternatives ibandronape 150 mg and alenbronate 10 mg. Silva Garcia is an 77 year old female is here today for evaluation of hypothyroidism. Currently takes medication for this. Is tolerating medication well. Denies palpitations, heat and cold intolerance, fatigue, and brittle/broken hair and nails. Silva Garcia is a 77 year old female here today for a check up on her diabetes. She is compliant on taking her medications :Yes Any low blood sugar reactions? No Denies increased urinating, eating, and drinking. Most recent HbA1c tests were: Lab Results Component Value Date HBA1C 6.9 (H) 03/24/2022 HBA1C 7.2 (H) 10/05/2021 HBA1C 7.0 (H) 07/20/2021 Her medications were reviewed today and her list is now up to date. Medications Current Outpatient Medications Medication Sig metFORMIN (GLUCOPHAGE) 500 mg tablet Take 1 tablet by mouth twice daily with meals. carbidopa-levodopa (SINEMET 25-100) 25-100 mg per tablet Take 1.5 tablets by mouth every morning AND 1.5 tablets every afternoon AND 1.5 tablets every evening. (8AM, Noon, 4PM).. metoprolol tartrate, short acting, (LOPRESSOR) 25 mg tablet Take 1 tablet by mouth twice daily. solifenacin (VESICARE) 5 mg tablet Take 1 tablet by mouth once daily. glipiZIDE (GLUCOTROL XL) 2.5 mg 24 hr tablet Take 1 tablet by mouth daily with breakfast. memantine (NAMENDA) 10 mg tablet Take 1 tablet by mouth twice daily. aspirin, enteric coated (ECOTRIN LOW STRENGTH) 81 mg EC tablet Take 1 tablet by mouth once daily. simvastatin (ZOCOR) 20 mg tablet Take 1 tablet by mouth daily at bedtime. levothyroxine (SYNTHROID) 50 mcg tablet Take 1 tablet by mouth once daily. polyethylene glycol 3350 (MIRALAX, GLYCOLAX) 17 gram/dose powder Will try taking Thursday and Fridays. Can increase dose as discussed. (Patient taking differently: Will try taking Thursday and Fridays. Can increase dose as discussed.) Adhesive Bandage (ADHESIVE PADS) 4.5 in x 5.5 in maninder and maninder cushion care adhesive gauze pads, fill for 32 with 5 refills, for open wound on coccyx, can be changed daily. risperiDONE (RISPERDAL) 0.5 mg tablet Take 1 tablet by mouth twice daily. WALKER ROLLATOR SEAT WITH 6 WHEELS - RED Rollator No current facility-administered medications for this visit. ALLERGIES Allergen Reactions Lisinopril Cough ACTIVE PROBLEM LIST Chronic Renal Disease, Stage IV ([facility]) - 10/14/2022 Acute Psychosis ([facility]) - 10/14/2022 Parkinson's Disease ([facility]) - 09/30/2021 Chronic Low Back Pain Without Sciatica - 09/30/2021 Ddd (Degenerative Disc Disease), Lumbar - 09/30/2021 Facet Arthropathy, Lumbar - 09/30/2021 Dementia Without Behavioral Disturbance ([facility]) - 09/30/2021 Acquired Hypothyroidism - 09/30/2021 Chronic Pruritic Rash in Adult - 07/30/2016 Comment: Diabetes Mellitus ([facility]) - 05/10/2015 S/P Cabg X 3 - 09/18/2011 Ashd (Arteriosclerotic Heart Disease) - 09/18/2011 Hypertension - 03/10/2011 Hearing Loss - 09/14/2007 Panic Disorder Without Agoraphobia Social History Tobacco Use Smoking status: Former Types: Cigarettes Quit date: 09/13/2005 Years since quittin.0 Smokeless tobacco: Never Vaping Use Vaping Use: Never used Substance Use Topics Alcohol use: Yes Comment: Very Little Drug use: Never Review of Systems Respiratory: Negative. Cardiovascular: Negative. Skin: Positive for wound. OBJECTIVE BP 118/80 Pulse 99 SpO2 98% Physical Exam Vitals and nursing note reviewed. Constitutional: General: She is awake. She is not in acute distress. Appearance: Normal appearance. She is well-developed. She is not ill-appearing, toxic-appearing or diaphoretic. Comments: Sitting in wheel chair for visit. HENT: Head: Normocephalic. Right Ear: External ear normal. Left Ear: External ear normal. Nose: Nose normal. Eyes: General: Vision grossly intact. Conjunctiva/sclera: Conjunctivae normal. Pupils: Pupils are equal, round, and reactive to light. Neck: Vascular: No JVD. Trachea: Trachea normal. Cardiovascular: Rate and Rhythm: Normal rate and regular rhythm. Pulses: Normal pulses. Heart sounds: Normal heart sounds. No murmur heard. Pulmonary: Effort: Pulmonary effort is normal. No accessory muscle usage, prolonged expiration or respiratory distress. Breath sounds: Normal breath sounds. Musculoskeletal: Cervical back: Neck supple. Skin: General: Skin is warm and dry. Capillary Refill: Capillary refill takes less than 2 seconds. Comments: Provider assisted patient to grain grader front of wheel chair to visualize area on buttock. Left buttock with small area of shearing, area with erythema that blanches, no drainage on exam, only a minimal area with a scab intact otherwise no open areas Neurological: General: No focal deficit present. Mental Status: She is alert and oriented to person, place, and time. Mental status is at baseline. Psychiatric: Attention and Perception: Attention and perception normal. Mood and Affect: Mood and affect normal. Speech: Speech normal. Behavior: Behavior normal. Behavior is cooperative. Thought Content: Thought content normal. Cognition and Memory: Cognition and memory normal. Judgment: Judgment normal. ASSESSMENT/PLAN: 1. Panic disorder without agoraphobia - ICD9: 300.01, ICD10: F41.0 (primary diagnosis) At this point I suspect it would be more harm than good to stop her Risperdal that she has been on for years, mentally she has been stable on this. Apparently her insurance recommended ibandronape 150 mg and alenbronate 10 mg but I am not certain this was what they intended as I suspect these meds are referring to ibandronate and alendronate which are bisphosphonates for treatment of osteoporosis and not ideal for her panic disorder or psychosis. We will plan to appeal this with [employer]. - RISPERIDONE 0.5 MG TABLET 2. Dementia without behavioral disturbance (HCC) - ICD9: 294.20, ICD10: F03.90 - RISPERIDONE 0.5 MG TABLET 3. History of psychosis - ICD9: V11.8, ICD10: Z86.59 - RISPERIDONE 0.5 MG TABLET 4. Chronic skin ulcer, limited to breakdown of skin (HCC) - ICD9: 707.9, ICD10: L98.491 Overall this is more of a stage 1 pressure injury on exam today, we discussed care of the area, signs and symptoms to monitor for, when to seek medical attention. Education given on changing positions and off loading weight. - ADHESIVE BANDAGE - POSITIONING CUSHION 5. Chronic renal disease, stage IV (HCC) - ICD9: 585.4, ICD10: N18.4 Check labs today. 6. Type 2 diabetes mellitus with other specified complication, without long-term current use of insulin (HCC) - ICD9: 250.80, ICD10: E11.69 - Control undetermined, due for labs - Continue current medications - Follow up in 3 months, sooner should any other issues arise. - HGB A1C 7. Acquired hypothyroidism - ICD9: 244.9, ICD10: E03.9 - Instructed patient on importance of taking on an empty stomach either first thing in the morning or at bedtime. - check TSH today - continue current dose of Synthroid and adjust accordingly - TSH BLD 8. Encounter for therapeutic drug monitoring - ICD9: V58.83, ICD10: Z51.81 - CBC + DIFF - COMP METABOLIC PANEL - HGB A1C - TSH BLD I spent a total of 45 minutes on the date of the service which included preparing to see the patient, [id number] patient care, completing clinical documentation, obtaining and/or reviewing separately obtained history, performing a medically appropriate examination, counseling and educating the patient/family/caregiver, ordering medications, tests, or procedures, communicating with other HCPs (not separately reported), independently interpreting results (not separately reported), communicating results to the patient/family/caregiver, and care coordination (not separately reported). Portions of this note have been entered by ancillary staff. I have reviewed and when necessary edited, so that they are an adequate record of my encounter with this patient Please note that parts of this document were created using voice recognition software and therefore may contain grammatical errors. Patient verbalizes understanding of instructions from today's visit and in agreement with treatment plan. Questions answered. Agrees to call the office if questions, concerns of issues with acute symptoms not improving or if they worsen. See diagnoses and orders for additional plan(s). Allergies and medications were reviewed, list was updated, and refills given if needed. Past medical, surgical, social, and family history reviewed and updated as appropriate. Encouraged proper diet & exercise as well as compliance with taking medications. Age-appropriate health preventative measures were discussed. Return in about 3 months (around 01/14/2023) for follow up 3 months, and then schedule another [address] Turcios if able. JANET Luna documented in this encounter [facility] documented as of this encounter (statuses as of 02/24/2023) [facility] History of Past illness Narrative* Problem Noted Date Diagnosed Date Resolved Date Acute psychosis 10/14/2022 01/30/2023 Seborrhea 10/30/2012 07/30/2016 Sprain and strain of unspeci fied site of shoulder and upper arm 07/29/2012 07/30/2016 Pain in joint, shoulder region 07/29/2012 07/30/2016 Acute [place] 09/18/2011 06/06/2016 DM w/o Complication Type II 01/08/2010 02/05/2015 Fatigue 01/08/2010 06/06/2016 Contact dermatitis and other eczema, due to unspecified cause 07/30/2016 Esophageal reflux 07/30/2016 documented as of this encounter (statuses as of 02/25/2023) [facility] History of Past illness Narrative* Problem Noted Date Diagnosed Date Resolved Date Acute psychosis 10/14/2022 01/30/2023 Seborrhea 10/30/2012 07/30/2016 Sprain and strain of unspeci fied site of shoulder and upper arm 07/29/2012 07/30/2016 Pain in joint, shoulder region 07/29/2012 07/30/2016 Acute KS 09/18/2011 06/06/2016 DM w/o Complication Type II 01/08/2010 02/05/2015 Fatigue 01/08/2010 06/06/2016 Contact dermatitis and other eczema, due to unspecified cause 07/30/2016 Esophageal reflux 07/30/2016 documented as of this encounter (statuses as of 03/13/2023) [facility] History of Past illness Narrative* Problem Noted Date Diagnosed Date Resolved Date Acute psychosis 10/14/2022 01/30/2023 Seborrhea 10/30/2012 07/30/2016 Sprain and strain of unspeci fied site of shoulder and upper arm 07/29/2012 07/30/2016 Pain in joint, shoulder region 07/29/2012 07/30/2016 Acute KS 09/18/2011 06/06/2016 DM w/o Complication Type II 01/08/2010 02/05/2015 Fatigue 01/08/2010 06/06/2016 Contact dermatitis and other eczema, due to unspecified cause 07/30/2016 Esophageal reflux 07/30/2016 documented as of this encounter (statuses as of 03/20/2023) [facility] History of Past illness Narrative* Problem Noted Date Diagnosed Date Resolved Date Chronic renal disease, stage IV 10/14/2022 05/19/2023 Acute psychosis 10/14/2022 01/30/2023 Seborrhea 10/30/2012 07/30/2016 Sprain and strain of unspeci fied site of shoulder and upper arm 07/29/2012 07/30/2016 Pain in joint, shoulder region 07/29/2012 07/30/2016 Acute KS 09/18/2011 06/06/2016 DM w/o Complication Type II 01/08/2010 02/05/2015 Fatigue 01/08/2010 06/06/2016 Contact dermatitis and other eczema, due to unspecified cause 07/30/2016 Esophageal reflux 07/30/2016 documented as of this encounter (statuses as of 05/22/2023) [facility] History of Past illness Narrative* Problem Noted Date Diagnosed Date Resolved Date Chronic renal disease, stage IV 10/14/2022 05/19/2023 Acute psychosis 10/14/2022 01/30/2023 Seborrhea 10/30/2012 07/30/2016 Sprain and strain of unspeci fied site of shoulder and upper arm 07/29/2012 07/30/2016 Pain in joint, shoulder region 07/29/2012 07/30/2016 Acute KS 09/18/2011 06/06/2016 DM w/o Complication Type II 01/08/2010 02/05/2015 Fatigue 01/08/2010 06/06/2016 Contact dermatitis and other eczema, due to unspecified cause 07/30/2016 Esophageal reflux 07/30/2016 documented as of this encounter (statuses as of 05/22/2023) [facility] History of Past illness Narrative* Problem Noted Date Diagnosed Date Resolved Date Chronic renal disease, stage IV 10/14/2022 05/19/2023 Acute psychosis 10/14/2022 01/30/2023 Seborrhea 10/30/2012 07/30/2016 Sprain and strain of unspeci fied site of shoulder and upper arm 07/29/2012 07/30/2016 Pain in joint, shoulder region 07/29/2012 07/30/2016 Acute KS 09/18/2011 06/06/2016 DM w/o Complication Type II 01/08/2010 02/05/2015 Fatigue 01/08/2010 06/06/2016 Contact dermatitis and other eczema, due to unspecified cause 07/30/2016 Esophageal reflux 07/30/2016 documented as of this encounter (statuses as of 05/27/2023) [facility] History of Past illness Narrative* Problem Noted Date Diagnosed Date Resolved Date Chronic renal disease, stage IV 10/14/2022 05/19/2023 Acute psychosis 10/14/2022 01/30/2023 Seborrhea 10/30/2012 07/30/2016 Sprain and strain of unspeci fied site of shoulder and upper arm 07/29/2012 07/30/2016 Pain in joint, shoulder region 07/29/2012 07/30/2016 Acute KS 09/18/2011 06/06/2016 DM w/o Complication Type II 01/08/2010 02/05/2015 Fatigue 01/08/2010 06/06/2016 Contact dermatitis and other eczema, due to unspecified cause 07/30/2016 Esophageal reflux 07/30/2016 documented as of this encounter (statuses as of 05/28/2023) [facility] Miscellaneous Notes* Telephone Encounter - Melissa De La Rosa - 10/07/2022 1:07 PM EDT Patient has been identified by name and date of : Yes Last office visit in this department: 08/04/2022 RX INSTRUCTIONS: Patient aware RX will be sent to pharmacy. No need to notify patient. Patient phones requesting refills as follows: Requested Prescriptions Pending Prescriptions Disp Refills metFORMIN (GLUCOPHAGE) 500 mg tablet 180 tablet 3 Sig: Take 1 tablet by mouth twice daily with meals. Please review and advise. Melissa De La Rosa [facility] Miscellaneous Notes* Telephone Encounter - Sara Dinero APRN.HECTOR - 08/25/2022 11:37 AM EDT [facility] website checked and validated. All prescriptions have been APPROPRIATELY filled. No suspiciousactivity was identified. 08/25/2022 by Sara Dinero APRN.HECTOR * Telephone Encounter - Gertrude Collier LPN - 08/25/2022 11:12 AM EDT Last office visit: 08/04/22 Next appointment scheduled: 10/14/22 Patient phones requesting refills as follows: Requested Prescriptions Pending Prescriptions Disp Refills LORazepam (ATIVAN) 0.5 mg 60 tablet 0 Sig: Take 1-2 tablets by mouth daily at bedtime for 30 days. Please review and advise. Gertrude Collier LPN * Telephone Encounter - Elvira Wellington - 08/25/2022 10:39 AM EDT Patient's spouse requesting refill on Lorazepam 0.5 mg- qty of 30. med not currently in refill list. Confirmed pharmacy. [facility] Miscellaneous Notes* Telephone Encounter - Griselda Cowan LPN - 08/15/2022 2:16 PM EDT Last seen COORDINATOR [employer] 08/04/22. Next appt with COORDINATOR [employer] 10/14/22 * Telephone Encounter - Elvira Wellington - 08/15/2022 12:19 PM EDT PATIENT REQUESTING QTY 120 TAKES TWICE DAILY. Patient phones requesting refills as follows: Requested Prescriptions Pending Prescriptions Disp Refills metoprolol tartrate, short acting, (LOPRESSOR) 25 mg tablet 180 tablet 3 Sig: Take 1 tablet by mouth twice daily. Please review and advise. Elvira Wellington [facility] NoteHNO ID: [id number] Author: Chela Goff MA Service: ? Author Type: Rural Health Consultant Type: Progress Notes Filed: 08/04/2022 5:27 PM Note Text: Pt and Pt declined iFOBT at this time. Pt reports that due to patient's incontinence, pillow/cushioning will not be appropriate. Exhaustive explanation of need for vinyl pillow and/or waterproof pillowcase given for pressure relief in recliner at home. Pt declined to schedule [address] Turcios and stated that pt is to keep Shauna appointment. Chela Goff, [facility]04-17-2023 NoteHNO ID: [id number] Author: Bobby Doherty APRN.IRRIGATING PUMP OPERATOR Service: ? Author Type: Nurse Specialist Type: Progress Notes Filed: 08/04/2022 5:27 PM Note Text: SUBJECTIVE: DILATED RETINAL EXAM due on 06/18/2017 DIABETIC FOOT EXAM due on 07/30/2017 FECAL OCCULT BLOOD due on 07/31/2017 COVID-19 VACCINE(4 - Booster for Moderna series) due on 06/03/2021 ADVANCE DIRECTIVE DISCUSSION Never done HPI Silva Garcia is a 77 year old female. PMH significant for ACTIVE PROBLEM LIST Panic Disorder Without Agoraphobia Hearing Loss Hypertension S/P Cabg X 3 Ashd (Arteriosclerotic Heart Disease) Diabetes Mellitus Type 2, Uncomplicated (Hcc) Chronic Pruritic Rash in Adult Parkinson's Disease (Hcc) Chronic Low Back Pain Without Sciatica Ddd (Degenerative Disc Disease), Lumbar Facet Arthropathy, Lumbar Dementia Without Behavioral Disturbance (Hcc) Acquired Hypothyroidism She was seen by PCP 08/14/2022 following hospital visit at [facility] for hydroureteronephrosis, obstruction right ureter. She was advised to follow-up with urology. She was noted to have coccygeal pressure ulcer, referred to wound center. Blood pressure noted to be running low and losartan dose was discontinued. Seen by urology: Not yet. First available appointment was in August. Has appointment Aug 19 2022 Current symptoms: urinary incontinence unchanged Pressure ulcer: still present, did not go to wound center or home care. Zinc topical treatment. No current dressing. No pressure relief in chairs. Followed by neurology, last seen 04/2022 by Asiya John APRN.PRODUCT SAFETY ENGINEER for Parkinsons, abnormality of gait and dementia without behavioral disturbance. DIABETES MELLITUS:Without report of excessive thirst or increased frequency of urination, chest pain or dyspnea , numbness, tingling or pain in extremities, new or unusual visual symptoms, low sugar/hypoglycemic reactions, weight loss/gain, lightheadedness/dizziness, and bowel changes/loose stools Patient's last HgA1C was Hemoglobin A1C Date Value 03/24/2022 6.9 % 10/05/2021 7.2 % 08/22/2019 6.0 % 07/30/2016 6.5 % 02/04/2016 6.5 02/04/2016 Test sent to [facility]. % ) HTN: Without report of headache, chest pain, palpitations, dyspnea, peripheral edema, orthopnea, and PND. Last 3 Encounter BP Readings: Date: BP: 06/16/2022 104/68 05/15/2022 100/66 03/24/2022 108/62 Hypothyroidism. Last filled by Jeni Estrella DO, no longer. TSH Date Value 03/24/2022 1.380 mIU/L 10/05/2021 1.390 mIU/L 02/02/2015 Test sent to [facility]. uU/mL 10/25/2012 2.740 uU/mL ) Review of Systems Constitutional: Positive for fatigue. Genitourinary: Urinary incontinence Musculoskeletal: Positive for gait problem. Objective BP 116/68 Pulse 90 Resp 16 Wt 59 kg (130 lb) BMI 23.97 kg/m? Physical Exam Vitals and nursing note reviewed. Constitutional: Appearance: Normal appearance. HENT: Head: Normocephalic and atraumatic. Eyes: Conjunctiva/sclera: Conjunctivae normal. Cardiovascular: Rate and Rhythm: Normal rate and regular rhythm. Heart sounds: Normal heart sounds. Pulmonary: Effort: Pulmonary effort is normal. Breath sounds: Normal breath sounds. Abdominal: General: Bowel sounds are normal. Palpations: Abdomen is soft. Skin: General: Skin is warm and dry. Comments: Full-thickness skin ulcers on buttocks, bilateral near cleft, appear to be related to shearing, some maceration is noted, wearing absorbent undergarment, coccyx area intact skin Neurological: Mental Status: She is alert. Mental status is at baseline. ALLERGIES Allergen Reactions Lisinopril Cough Medications solifenacin (VESICARE) 5 mg tablet Take 1 tablet by mouth once daily. levothyroxine (SYNTHROID) 50 mcg tablet Take 1 tablet by mouth once daily. glipiZIDE (GLUCOTROL XL) 2.5 mg 24 hr tablet Take 1 tablet by mouth daily with breakfast. carbidopa-levodopa (SINEMET 25-100) 25-100 mg per tablet Take 1.5 tablets by mouth every morning AND 1.5 tablets every afternoon AND 1.5 tablets every evening. (8AM, Noon, 4PM).. risperiDONE (RISPERDAL) 0.5 mg tablet Take 1 tablet by mouth twice daily. metFORMIN (GLUCOPHAGE) 500 mg tablet Take 1 tablet by mouth twice daily with meals. metoprolol tartrate, short acting, (LOPRESSOR) 25 mg tablet Take 1 tablet by mouth twice daily. memantine (NAMENDA) 10 mg tablet Take 1 tablet by mouth twice daily. aspirin, enteric coated (ECOTRIN LOW STRENGTH) 81 mg EC tablet Take 1 tablet by mouth once daily. simvastatin (ZOCOR) 20 mg tablet Take 1 tablet by mouth daily at bedtime. polyethylene glycol 3350 (MIRALAX, GLYCOLAX) 17 gram/dose powder Will try taking Thursday and Fridays. Can increase dose as discussed. (Patient taking differently: Will try taking Thursday and Fridays. Can increase dose as discussed.) WALKER ROLLATOR SEAT WITH 6 WHEELS - RED Rollator losartan (COZAAR) 5 (more content not included)...[facility] 08-04-2022 History of Present illness Narrative* Chela Goff MA - 08/04/2022 4:08 PM EDT Pt and Pt declined iFOBT at this time. Pt reports that due to patient's incontinence, pillow/cushioning will not be appropriate. Exhaustive explanation of need for vinyl pillow and/orwaterproof pillowcase given for pressure relief in recliner at home. Pt declined to schedule [address] Turcios and stated that pt is to keep September appointment. Chela Goff MA * Bobby Doherty APRN.IRRIGATING PUMP OPERATOR - 08/04/2022 3:00 PM EDT SUBJECTIVE: DILATED RETINAL EXAM due on 06/18/2017 DIABETIC FOOT EXAM due on 07/30/2017 FECAL OCCULT BLOOD due on 07/31/2017 COVID-19 VACCINE(4 - Booster for Moderna series) due on 06/03/2021 ADVANCE DIRECTIVE DISCUSSION Never done HPI Silva Garcia is a 77 year old female. PMH significant for ACTIVE PROBLEM LIST Panic Disorder Without Agoraphobia Hearing Loss Hypertension S/P Cabg X 3 Ashd (Arteriosclerotic Heart Disease) Diabetes Mellitus Type 2, Uncomplicated (Hcc) Chronic Pruritic Rash in Adult Parkinson's Disease (Hcc) Chronic Low Back Pain Without Sciatica Ddd (Degenerative Disc Disease), Lumbar Facet Arthropathy, Lumbar Dementia Without Behavioral Disturbance (Hcc) Acquired Hypothyroidism She was seen by PCP 08/14/2022 following hospital visit at [facility] for hydroureteronephrosis, obstruction right ureter. She was advised to follow-up with urology. She was noted to have coccygeal pressure ulcer, referred to wound center. Blood pressure noted to be running low and losartan dose was discontinued. Seen by urology: Not yet. First available appointment was in August. Has appointment Aug 19 2022 Current symptoms: urinary incontinence unchanged Pressure ulcer: still present, did not go to wound center or home care. Zinc topical treatment. No current dressing. No pressure relief in chairs. Followed by neurology, last seen 04/2022 by Asiya John APRN.PRODUCT SAFETY ENGINEER for Parkinsons, abnormalityof gait and dementia without behavioral disturbance. DIABETES MELLITUS:Without report of excessive thirst or increased frequency of urination, chest pain or dyspnea , numbness, tingling or pain in extremities, new or unusual visual symptoms, low sugar/hypoglycemic reactions, weight loss/gain, lightheadedness/dizziness, and bowel changes/loose stools Patient's last HgA1C was Hemoglobin A1C Date Value 03/24/2022 6.9 % 10/05/2021 7.2 % 08/22/2019 6.0 % 07/30/2016 6.5 % 02/04/2016 6.5 02/04/2016 Test sent to [facility]. % ) HTN: Without report of headache, chest pain, palpitations, dyspnea, peripheral edema, orthopnea, and PND. Last 3 Encounter BP Readings: Date: BP: 06/16/2022 104/68 05/15/2022 100/66 03/24/2022 108/62 Hypothyroidism. Last filled by Jeni Estrella DO, no longer. TSH Date Value 03/24/2022 1.380 mIU/L 10/05/2021 1.390 mIU/L 02/02/2015 Test sent to [facility]. uU/mL 10/25/2012 2.740 uU/mL ) Review of Systems Constitutional: Positive for fatigue. Genitourinary: Urinary incontinence Musculoskeletal: Positive for gait problem. Objective BP 116/68 Pulse 90 Resp 16 Wt 59 kg (130 lb) BMI 23.97 kg/m Physical Exam Vitals and nursing note reviewed. Constitutional: Appearance: Normal appearance. HENT: Head: Normocephalic and atraumatic. Eyes: Conjunctiva/sclera: Conjunctivae normal. Cardiovascular: Rate and Rhythm: Normal rate and regular rhythm. Heart sounds: Normal heart sounds. Pulmonary: Effort: Pulmonary effort is normal. Breath sounds: Normal breath sounds. Abdominal: General: Bowel sounds are normal. Palpations: Abdomen is soft. Skin: General: Skin is warm and dry. Comments: Full-thickness skin ulcers on buttocks, bilateral near cleft, appear to be related to shearing, some maceration is noted, wearing absorbent undergarment, coccyx area intact skin Neurological: Mental Status: She is alert. Mental status is at baseline. ALLERGIES Allergen Reactions Lisinopril Cough Medications solifenacin (VESICARE) 5 mg tablet Take 1 tablet by mouth once daily. levothyroxine (SYNTHROID) 50 mcg tablet Take 1 tablet by mouth once daily. glipiZIDE (GLUCOTROL XL) 2.5 mg 24 hr tablet Take 1 tablet by mouth daily with breakfast. carbidopa-levodopa (SINEMET 25-100) 25-100 mg per tablet Take 1.5 tablets by mouth every morning AND 1.5 tablets every afternoon AND 1.5 tablets every evening. (8AM, Noon, 4PM).. risperiDONE (RISPERDAL) 0.5 mg tablet Take 1 tablet by mouth twice daily. metFORMIN (GLUCOPHAGE) 500 mg tablet Take 1 tablet by mouth twice daily with meals. metoprolol tartrate, short acting, (LOPRESSOR) 25 mg tablet Take 1 tablet by mouth twice daily. memantine (NAMENDA) 10 mg tablet Take 1 tablet by mouth twice daily. aspirin, enteric coated (ECOTRIN LOW STRENGTH) 81 mg EC tablet Take 1 tablet by mouth once daily. simvastatin (ZOCOR) 20 mg tablet Take 1 tablet by mouth daily at bedtime. polyethylene glycol 3350 (MIRALAX, GLYCOLAX) 17 gram/dose powder Will try taking Thursday and Fridays. Can increase dose as discussed. (Patient taking differently: Will try taking Thursday and Fridays. Can increase dose as discussed.) WALKER ROLLATOR SEAT WITH 6 WHEELS - RED Rollator losartan (COZAAR) 50 mg tablet On Hold at least for now (BP running lower and symptomatic) oxybutynin ER (DITROPAN XL) 15 mg 24 hr Extended Rel Tab Take 1 tablet by mouth daily at bedtime. PAST MEDICAL HISTORY Diagnosis Date Acute KS (HCC) 09/18/2011 Contact dermatitis and other eczema, due to unspecified cause Diabetes mellitus (HCC) Esophageal reflux Esophageal reflux Hx of CABG 08/05/11 Hyperlipidemia Left Ear Hearing Loss 09/14/2007 Myocardial infarct (HCC) 08/01/11 Other forms of migraine Panic disorder without agoraphobia Social History Tobacco Use Smoking status: Former Types: Cigarettes Quit date: 09/13/2005 Years since quittin.9 Smokeless tobacco: Never Vaping Use Vaping Use: Never used Substance Use Topics Alcohol use: Yes Comment: Very Little Drug use: Never Component Latest Ref Rng & Units 10/05/2021 02/26/2022 03/24/2022 06/06/2022 Protein, Total 6.3 - 8.0 g/dL 7.4 7.6 Albumin 3.9 - 4.9 g/dL 3.8 (L) 3.7 (L) Calcium 8.5 - 10.2 mg/dL 9.7 9.7 9.8 Bilirubin, Total 0.2 - 1.3 mg/dL 0.7 0.5 Alkaline Phosphatase 34 - 123 U/L 82 86 AST 13 - 35 U/L 13 10 (L) ALT 7 - 38 U/L 8 6 (L) Glucose 74 - 99 mg/dL 187 (H) 185 (H) 204 (H) BUN 7 - 21 mg/dL 23 (H) 36 (H) 50 (H) Creatinine 0.58 - 0.96 mg/dL 1.39 (H) 1.81 (H) 1.98 (H) Sodium 136 - 144 mmol/L 139 136 139 Potassium 3.7 - 5.1 mmol/L 4.7 5.5 (H) 5.2 (H) Chloride 97 - 105 mmol/L 103 102 100 CO2 22 - 30 mmol/L 20 (L) 21 (L) 24 Anion Gap 9 - 18 mmol/L 16 13 15 eGFR >=60 mL/min/1.73m 40 (L) 29 (L) 26 (L) WBC 3.70 - 11.00 k/uL 10.31 15.39 (H) 8.76 RBC 3.90 - 5.20 m/uL 4.20 4.00 3.84 (L) Hemoglobin 11.5 - 15.5 g/dL 11.9 11.5 11.3 (L) Hematocrit 36.0 - 46.0 % 39.3 36.1 36.6 MCV 80.0 - 100.0 fL 93.6 90.3 95.3 MCH 26.0 - 34.0 pg 28.3 28.8 29.4 MCHC 30.5 - 36.0 g/dL 30.3 (L) 31.9 30.9 RDW-CV 11.5 - 15.0 % 13.9 14.6 15.6 (H) Platelet Count 150 - 400 k/uL 297 363 384 MPV 9.0 - 12.7 fL 10.8 10.5 10.8 Absolute nRBC <0.01 k/uL <0.01 <0.01 <0.01 Cholesterol, Total <200 mg/dL 108 Triglyceride <150 mg/dL 189 (H) HDL Cholesterol >39 mg/dL 41 Non HDL Cholesterol <130 mg/dL 67 Fasting Time hrs 10 VLDL Cholesterol <30 mg/dL 38 (H) TC:HDL Ratio <5.10 2.63 LDL Cholesterol <100 mg/dL 29 LDL:HDL Ratio <2.54 0.71 Total Cholesterol, Nonfasting <200 mg/dL 101 Triglycerides, Nonfasting <150 mg/dL 150 (H) HDL Cholesterol, Nonfasting >39 mg/dL 34 (L) LDL Cholesterol, Nonfasting <100 mg/dL 37 Non HDL Cholesterol, Nonfasting <130 mg/dL 67 VLDL Cholesterol, Nonfasting <30 mg/dL 30 (H) Total Chol/HDL Ratio, Nonfasting <5.10 mg/dL 2.97 LDL/HDL Ratio, Nonfasting <2.54 mg/dL 1.09 Creatinine, Ur Random (UCRR) 20.0 - 300.0 mg/dL 95.1 82.2 Albumin, Urine Random mg/L 1,547.7 584.4 Albumin/Creat Ratio <30 mg/g 1,627 (H) 711 (H) Hemoglobin A1C 4.3 - 5.6 % 7.2 (H) 6.9 (H) Estimated Average Glucose mg/dL 160 151 TSH 0.270 - 4.200 mIU/L 1.390 1.380 Free T4 0.9 - 1.7 ng/dL 1.4 Free T3 2.3 - 4.1 pg/mL 1.6 (L) Creatinine Date Value Ref Range Status 06/06/2022 1.98 (H) 0.58 - 0.96 mg/dL Final 03/24/2022 1.81 (H) 0.58 - 0.96 mg/dL Final 10/05/2021 1.39 (H) 0.58 - 0.96 mg/dL Final 02/04/2016 Test sent to [facility]. 0.58 - 0.96 mg/dL Final Comment: Account Credited ASSESSMENT/PLAN: 1. Type 2 diabetes mellitus without complication, without long-term current use of insulin (HCC) - ICD9: 250.00, ICD10: E11.9 (primary diagnosis) controlled - Continue current medications - TSH BLD - HGB A1C 3. Screening for colon cancer - ICD9: V76.51, ICD10: Z12.11 - FECAL OCCULT BLOOD TEST -declined 5. Chronic skin ulcer, limited to breakdown of skin (HCC) - ICD9: 707.9, ICD10: L98.491 6. Urinary incontinence, unspecified type - ICD9: 788.30, ICD10: R32 Did not have home care wound care or go to the wound center. She has what appears like shearing wounds on her buttocks, intact at tailbone. - MINERAL OIL-HYDROPHIL PETROLAT TOPICAL OINTMENT - 4 IN. CUSHION, WHEELCHAIR 7. Obstruction of right ureter - ICD9: 593.4, ICD10: N13.5 Has not seen urology, has an appointment in August with Dr. Niño 8. Elevated serum creatinine - ICD9: 790.99, ICD10: R79.89 Recommend drinking more fluid, last lab work showed azotemia. Recheck lab work at her earliest convenience Advised: Clean affected area with a wipe between undergarment changes Apply petrolatum ointment in a thick coat over open skin. Clean and apply this with each undergarment change. Please a bed pillow in the recliner or wheelchair cushion in chair to relieve pressure. Consider seeing a wound center specialist for your open sores if not improving was talking about his own concerns during her visit, it was difficult to stay on topic for Silva Garcia concerns. Requested 90-day supply of medications, prescription sent. Bobby Doherty APRN.CNS Medical Decision Making: Problems: Moderate: 2+ stable chronic illnesses Risk: Moderate: Moderate risk from testing/treatment Medical Decision Making Level: 4 - Moderate documented in this encounterGu[facility]04-17-2023 Instructions* Patient Instructions* Bobby Doherty APRN.CNS - 08/04/2022 3:49 PM EDT Clean affected area with a wipe between undergarment changes Apply petrolatum ointment in a thick coat over open skin. Clean and apply this with each undergarment change. Please a bed pillow in the recliner or wheelchair cushion in chair to relieve pressure. Consider seeing a wound center specialist for your open sores if not improving documented in this encounterGuernsey [facility]03-29-2023 Miscellaneous Notes* Telephone Encounter - Kasandra Cerda Pss - 07/16/2022 9:34 AM EDT Pharmacy verified in [facility] Patient has been identified by name and date of : Yes Patient aware RX will be sent to pharmacy. No need to notify patient. Spouse phones for refill(s): Requested Prescriptions Pending Prescriptions Disp Refills solifenacin (VESICARE) 5 mg tablet 30 tablet 2 Sig: Take 1 tablet by mouth once daily. Date of last office visit : 06/16/2022 Date of next office visit : 07/23/2022 Last 2 Encounter Wt Readings: Date: Wt: 05/15/2022 59.3 kg (130 lb 12.8 oz) 03/24/2022 63 kg (139 lb) Please advise. Kasandra Cerda Pss documented in this encounterGuernsey [facility]02-28-2023 Miscellaneous Notes* Telephone Encounter - Griselda Cowan LPN - 06/17/2022 2:53 PM EST Seen 06/16/22. * Telephone Encounter - Екатерина Damon - 06/17/2022 2:01 PM EST Patient has been identified by name and date of : Yes Requested Prescriptions Pending Prescriptions Disp Refills levothyroxine (SYNTHROID) 50 mcg tablet 90 tablet 2 Sig: Take 1 tablet by mouth once daily. RX INSTRUCTIONS: Patient aware RX will be sent to pharmacy. No need to notify patient. Екатерина Damon documented in this encounterGuernsey [facility] Hospital02-27-2023 NoteHNO ID: [id number] Author: Lai Turcios MD Service: ? Author Type: Physician Type: Progress Notes Filed: 06/16/2022 4:03 PM Note Text: This note was created using NoteWriter. Subjective Silva Cabbell is a 77 year old female. No chief complaint on file. SUBJECTIVE: Silva Garcia is a 77 year old year old lady here today for [facility] hospital follow up appointment for review of medical conditions. Reviewed hospital records. Dr. Ramirez following for hydronephrosis. Stent was placed at this hospital. 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 Was referred to [place] provider but prefers to stay on area. Still taking losartan--did not see instructions to hold Does ahve symptoms of low BP Does not have HHN yet since going through their insurance. Glucerna one in AM PAST MEDICAL HISTORY Diagnosis Date Acute KS (HCC) 09/18/2011 Contact dermatitis and other eczema, due to unspecified cause Diabetes mellitus (HCC) Esophageal reflux Esophageal reflux Hx of CABG 08/05/11 Hyperlipidemia Left Ear Hearing Loss 09/14/2007 Myocardial infarct (HCC) 08/01/11 Other forms of migraine Panic disorder without agoraphobia Current Outpatient Medications Medication Sig glipiZIDE (GLUCOTROL XL) 2.5 mg 24 hr tablet Take 1 tablet by mouth daily with breakfast. carbidopa-levodopa (SINEMET 25-100) 25-100 mg per tablet Take 1.5 tablets by mouth every morning AND 1.5 tablets every afternoon AND 1.5 tablets every evening. (8AM, Noon, 4PM).. solifenacin (VESICARE) 5 mg tablet Take 1 tablet by mouth once daily. risperiDONE (RISPERDAL) 0.5 mg tablet Take 1 tablet by mouth twice daily. losartan (COZAAR) 50 mg tablet Take 1 tablet by mouth once daily. metFORMIN (GLUCOPHAGE) 500 mg tablet Take 1 tablet by mouth twice daily with meals. metoprolol tartrate, short acting, (LOPRESSOR) 25 mg tablet Take 1 tablet by mouth twice daily. memantine (NAMENDA) 10 mg tablet Take 1 tablet by mouth twice daily. oxybutynin ER (DITROPAN XL) 15 mg 24 hr Extended Rel Tab Take 1 tablet by mouth daily at bedtime. (Patient not taking: No sig reported) aspirin, enteric coated (ECOTRIN LOW STRENGTH) 81 mg EC tablet Take 1 tablet by mouth once daily. levothyroxine (SYNTHROID) 50 mcg tablet Take 1 tablet by mouth once daily. simvastatin (ZOCOR) 20 mg tablet Take 1 tablet by mouth daily at bedtime. polyethylene glycol 3350 (MIRALAX, GLYCOLAX) 17 gram/dose powder Will try taking Thursday and Fridays. Can increase dose as discussed. (Patient not taking: No sig reported) WALKER ROLLATOR SEAT WITH 6 WHEELS - RED Rollator No current facility-administered medications for this visit. Review of Systems Objective BP 104/68 Pulse 73 Temp 36.6 ?C (97.8 ?F) Resp 18 SpO2 95% Last 5 Encounter Wt Readings: Date: Wt: 05/15/2022 59.3 kg (130 lb 12.8 oz) 03/24/2022 63 kg (139 lb) 01/28/2022 65.8 kg (145 lb) 01/14/2022 64.9 kg (143 lb) 12/12/2021 63.6 kg (140 lb 3.2 oz) No waist measurement recorded Estimated body mass index is 24.12 kg/m? as calculated from the following: Height as of 01/28/22: 156.8 cm (5' 1.75 ). Weight as of 05/15/22: 59.3 kg (130 lb 12.8 oz). Last 5 Encounter BP Readings: Date: BP: 06/16/2022 104/68 05/15/2022 100/66 03/24/2022 108/62 01/28/2022 110/60 01/14/2022 108/72 Physical Exam Constitutional: Appearance: Normal appearance. HENT: Head: Normocephalic. Eyes: Conjunctiva/sclera: Conjunctivae normal. Cardiovascular: Rate and Rhythm: Normal rate and regular rhythm. Heart sounds: Normal heart sounds. Pulmonary: Effort: Pulmonary effort is normal. Breath sounds: Normal breath sounds. Skin: General: Skin is warm and dry. Neurological: General: No focal deficit present. Mental Status: She is alert. Motor: Weakness present. Comments: Needs help with transfers. Antalgic gait (complains of some back pain), shuffle steps to transfer from bed to wheelchair. Psychiatric: Attention and Perception: Attention normal. Mood and Affect: Affect is blunt. Behavior: Behavior is cooperative. Thought Content: Thought content normal. Comments: Masked facies. Does answer questions occasionally; does most of the talking but she answers our questions appropriately. [facility] Medical Records Department [address] [place] [address] Operative Report 06/12/22822 MR#: [id number] Acct: [id number] Name: SILVA GARCIA Rep #:[id number] : 1945 77 From: [place]am Silva PCP: Dr. Lai Turcios MD Status:[facility] Location: [place] [address] Problems Associated Problem List Diagnoses (1) Hydroureteronephrosis: Report of Operation Date of Procedure: 06/12/22 Pre-Operative Diagnosis: Right hydroureteronephrosis Post-Operative Diagnosis: Same, distal ureteral o (more content not included)... [facility] Instructions* Patient Instructions* Lai Turcios MD - 06/16/2022 2:43 PM EST Images from the original note were not included. Chago Newby APRN.PRODUCT SAFETY ENGINEER You; Liset Ziegler MD 9 minutes ago (2:55 PM) Per our urology schedulers, Dr. Lopez and Dr. Perla see patients in [place]. Dr. José sees patients at our [facility] location in [place]. Hope that helps! Chago Stop the losartan and either come back for BP check in 2 to 4 weeks unless have BP checked elsewhere for follow up appointment and BP is fine. BP check with nurse practitioner. Check with your insurance for Home Health for Wound Care. documented in this encounterGuernsey [facility]02-27-2023 History of Present illness Narrative* Lai Turcios MD - 06/16/2022 1:54 PM EST Images from the original note were not included. This note was created using NoteWriter. Subjective Silva Garcia is a 77 year old female. No chief complaint on file. SUBJECTIVE: Silva Garcia is a 77 year old year old lady here today for [facility] hospital follow up appointment forreview of medical conditions. Reviewed hospital records. Dr. Ramirez following for hydronephrosis. Stent was placed at this hospital. 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 Was referred to [place] provider but prefers to stay on area. Still taking losartan--did not see instructions to hold Does ahve symptoms of low BP Does not have HHN yet since going through their insurance. Glucerna one in AM PAST MEDICAL HISTORY Diagnosis Date Acute KS (HCC) 09/18/2011 Contact dermatitis and other eczema, due to unspecified cause Diabetes mellitus (HCC) Esophageal reflux Esophageal reflux Hx of CABG 08/05/11 Hyperlipidemia Left Ear Hearing Loss 09/14/2007 Myocardial infarct (HCC) 08/01/11 Other forms of migraine Panic disorder without agoraphobia Current Outpatient Medications Medication Sig glipiZIDE (GLUCOTROL XL) 2.5 mg 24 hr tablet Take 1 tablet by mouth daily with breakfast. carbidopa-levodopa (SINEMET 25-100) 25-100 mg per tablet Take 1.5 tablets by mouth every morning AND 1.5 tablets every afternoon AND 1.5 tablets every evening. (8AM, Noon, 4PM).. solifenacin (VESICARE) 5 mg tablet Take 1 tablet by mouth once daily. risperiDONE (RISPERDAL) 0.5 mg tablet Take 1 tablet by mouth twice daily. losartan (COZAAR) 50 mg tablet Take 1 tablet by mouth once daily. metFORMIN (GLUCOPHAGE) 500 mg tablet Take 1 tablet by mouth twice daily with meals. metoprolol tartrate, short acting, (LOPRESSOR) 25 mg tablet Take 1 tablet by mouth twice daily. memantine (NAMENDA) 10 mg tablet Take 1 tablet by mouth twice daily. oxybutynin ER (DITROPAN XL) 15 mg 24 hr Extended Rel Tab Take 1 tablet by mouth daily at bedtime. (Patient not taking: No sig reported) aspirin, enteric coated (ECOTRIN LOW STRENGTH) 81 mg EC tablet Take 1 tablet by mouth once daily. levothyroxine (SYNTHROID) 50 mcg tablet Take 1 tablet by mouth once daily. simvastatin (ZOCOR) 20 mg tablet Take 1 tablet by mouth daily at bedtime. polyethylene glycol 3350 (MIRALAX, GLYCOLAX) 17 gram/dose powder Will try taking Thursday and Fridays. Can increase dose as discussed. (Patient not taking: No sig reported) WALKER ROLLATOR SEAT WITH 6 WHEELS - RED Rollator No current facility-administered medications for this visit. Review of Systems Objective BP 104/68 Pulse 73 Temp 36.6 C (97.8 F) Resp 18 SpO2 95% Last 5 Encounter Wt Readings: Date: Wt: 05/15/2022 59.3 kg (130 lb 12.8 oz) 03/24/2022 63 kg (139 lb) 01/28/2022 65.8 kg (145 lb) 01/14/2022 64.9 kg (143 lb) 12/12/2021 63.6 kg (140 lb 3.2 oz) No waist measurement recorded Estimated body mass index is 24.12 kg/m as calculated from the following: Height as of 01/28/22: 156.8 cm (5' 1.75 ). Weight as of 05/15/22: 59.3 kg (130 lb 12.8 oz). Last 5 Encounter BP Readings: Date: BP: 06/16/2022 104/68 05/15/2022 100/66 03/24/2022 108/62 01/28/2022 110/60 01/14/2022 108/72 Physical Exam Constitutional: Appearance: Normal appearance. HENT: Head: Normocephalic. Eyes: Conjunctiva/sclera: Conjunctivae normal. Cardiovascular: Rate and Rhythm: Normal rate and regular rhythm. Heart sounds: Normal heart sounds. Pulmonary: Effort: Pulmonary effort is normal. Breath sounds: Normal breath sounds. Skin: General: Skin is warm and dry. Neurological: General: No focal deficit present. Mental Status: She is alert. Motor: Weakness present. Comments: Needs help with transfers. Antalgic gait (complains of some back pain), shuffle steps to transfer from bed to wheelchair. Psychiatric: Attention and Perception: Attention normal. Mood and Affect: Affect is blunt. Behavior: Behavior is cooperative. Thought Content: Thought content normal. Comments: Masked facies. Does answer questions occasionally; does most of the talking but she answers our questions appropriately. [facility] Medical Records Department [address] [place] [address] Operative Report 06/12/22 0823 MR#: [id number] Acct: [id number] Name: SILVA GARCIA Rep #:[id number] : 1945 77 From: Sanam Silva PCP: Dr. Lai Turcios MD Status:[facility] Location: [place] [address] Problems Associated Problem List Diagnoses (1) Hydroureteronephrosis: Report of Operation Date of Procedure: 06/12/22 Pre-Operative Diagnosis: Right hydroureteronephrosis Post-Operative Diagnosis: Same, distal ureteral obstruction Surgery/Procedure Performed:: Cystoscopy, right retrograde pyelogram, right ureteroscopy, right ureteral stent change Surgeon: Sanam Ramirez Type of Anesthesia: General Description of Procedure: The patient is a 77-year-old female who underwent an urgent cystoscopy with right ureteral stent insertion for infection and right hydronephrosis with no stone identified. She now presents for retrograde pyelogram and ureteroscopy for further evaluation. Informed consent was obtained. The patient was taken to the operating room and placed on the operating room table. Anesthesia monitored the head, neck, airway, IV access and vital signs throughout the case. Once anesthesia was appropriately administered, the patient was placed into dorsolithotomy position was prepped and draped in usual sterile fashion. The cystoscope was inserted through the urethra under direct visualization. The ureteralstent was identified and removed. Using an 8 Ukrainian cone-tip catheter,a retrograde pyelogram was performed under fluoroscopic visualization revealing a distal ureteral narrowing, likely a couple of centimeters in length. At this time 2 separate 0.035 Glidewire's were passed through the ureter with d ifficulty, requiring use of the pusher. The wires were seen on fluoroscopic visualization within the renal pelvis. The flexible ureteroscope was inserted over one of the glide wires and access to thedistal ureter was obtained. Visually, at the area of the narrowing identified on retrograde pyelogram, thereis either a ureteral stricture or an aggressive ureteral tumor with almost obliteration of the ureteral lumen. The scope was unable to pass. The ureteroscope was then removed and the cystoscope was used to place a 6 x 24 JJ stent over the wire with good curling position in the renal pelvis as well as the urinary bladder. The patient's bladder was then emptied and she was awakened and taken to the recovery room in good condition. There were no complications during this procedure. Grafts/Implants Used: 6 x 24 JJ stent Complications None Admit VTE Documentation VTE Present on Admission: Yes VTE Mechan Device Prophylaxis: SCD's VTE Pharm Prophylaxis ordered?: No Reason prophylaxis not ordered:: Treatment Not Indicated 06/12/22 0933 <Electronically signed by Sanam Ramirez MD> Cosigner Signature (if applicable): CC: Dr. Sanam Ramirez MD; Dr. Lai Turcios MD~ Signed Assessment and Plan ASSESSMENT/PLAN: 1. Type 2 diabetes mellitus without complication, without long-term current use of insulin (HCC) - ICD9: 250.00, ICD10: E11.9 (primary diagnosis) Controlled - Continue current medications - COMP METABOLIC PANEL - CBC 2. Decubitus ulcer of coccygeal region, unspecified ulcer stage - ICD9: 707.03, 707.20, ICD10: L89.159 Dressing placed by 05/30 at [facility] with no wound care instructions. Dressing is intact. Discussed that should be changed but we do not have dressings to apply to wound here. Will see about home health wound care to do dressing change at home. It not able, then see about getting dressings to apply here and/or refer to wound care center that is covered by their insurance. 3. Obstruction of right ureter - ICD9: 593.4, ICD10: N13.5 Needs to see urologist outsideof - COMP METABOLIC PANEL - CBC 4. Primary hypertension - ICD9: 401.9, ICD10: I10 - BP running low with losartan added back instead of held after recent hospital stay for sepsis, UTI, ureteral obstruction. - Stop losartan and close follow up with BP check. Has appointment with Sara in June. - Goal of BP <130/80 5. Parkinson's disease (HCC) - ICD9: 332.0, ICD10: G20 Stable on current meds. Continue present management. Lai Turcios MD documented in this encounterGu[facility]02-[facility]23 Miscellaneous Notes* Telephone Encounter - Brittany Hernández RN - 06/13/2022 3:06 PM EST Images from the original note were not included. Called Jeet regarding Silva Verified name and Relayed message below Phone number at [place] was provided Advised appt with Dr. Ziegler will be cancelled Brittany Newby APRN.PRODUCT SAFETY ENGINEER You; Liset Ziegler MD 9 minutes ago (2:55 PM) Per our urology schedulers, Dr. Lopez and Dr. Perla see patients in [place]. Dr. José sees patients at our [facility] location in [place]. Hope that helps! Chago * Telephone Encounter - Brittany Hernández RN - 06/13/2022 10:38 AM EST Called patient verified name and Spoke with Jeet Appointment scheduled for 08/18/[address] Ziegler States Silva was recently admitted and had a stent placed See below for procedure note Want to know if you are the correct MD to see or another MD in urology ? is concerned with her waiting until 08/2022 They know what the problem is and and eager to get it resolved Other MD recommendation in [place] who will be able to assist her sooner ? Report of Operation Date of Procedure: 06/12/22 Pre-Operative Diagnosis: Right hydroureteronephrosis Post-Operative Diagnosis: Same, distal ureteral obstruction Surgery/Procedure Performed:: Cystoscopy, right retrograde pyelogram, right ureteroscopy, right ureteral stent change Surgeon: Sanam Ramirez Type of Anesthesia: General Description of Procedure: The patient is a 77-year-old female who underwent an urgent cystoscopy with right ureteral stent insertion for infection and right hydronephrosis with no stone identified. She now presents for retrograde pyelogram and ureteroscopy for further evaluation. Informed consent was obtained. The patient was taken to the operating room and placed on the operating room table. Anesthesia monitored the head, neck, airway, IV access and vital signs throughout the case. Once anesthesia was appropriately administered, the patient was placed into dorsolithotomy position was prepped and draped in usual sterile fashion. The cystoscope was inserted through the urethra under direct visualization. The ureteralstent was identified and removed. Using an 8 Ukrainian cone-tip catheter,a retrograde pyelogram was performed under fluoroscopic visualization revealing a distal ureteral narrowing, likely a couple of centimeters in length. At this time 2 separate 0.035 Glidewire's were passed through the ureter with d ifficulty, requiring use of the pusher. The wires were seen on fluoroscopic visualization within the renal pelvis. The flexible ureteroscope was inserted over one of the glide wires and access to thedistal ureter was obtained. Visually, at the area of the narrowing identified on retrograde pyelogram, thereis either a ureteral stricture or an aggressive ureteral tumor with almost obliteration of the ureteral lumen. The scope was unable to pass. The ureteroscope was then removed and the cystoscope was used to place a 6 x 24 JJ stent over the wire with good curling position in the renal pelvis as well as the urinary bladder. The patient's bladder was then emptied and she was awakened and taken to the recovery room in good condition. There were no complications during this procedure. Grafts/Implants Used: 6 x 24 JJ stent Complications * Telephone Encounter - Crystal Mayer - 06/13/2022 10:31 AM EST Patient's returning missed call. Asks that you please call back. Crystal Caceres * Telephone Encounter - Brittany Hernández RN - 06/13/2022 9:44 AM EST Called patient LVM to call the office Brittany Hernández RN * Telephone Encounter - Crystal Mayer - 06/12/2022 4:24 PM EST Patient's calling in wanting to speak with a nurse regarding a type of procedure he would like to know if Dr. Ziegler is able to do. States went to ED and had a stent placed in her uterus. She had a follow up today and they found a blockage that will require another procedure. Please advise: [phone] Crystal Caceres documented in this encounterGuernsey [facility]02-24-2023 Miscellaneous Notes* Telephone Encounter - Pamella Hodges LPN - 06/13/2022 11:54 AM EST A form was received from a DMEcompany that was filled out and faxed back. Pamella Hodges LPN * Telephone Encounter - Lai Turcios MD - 06/07/2022 3:35 PM EST Completed form * Telephone Encounter - Kym Bolden LPN - 06/05/2022 4:45 PM EST Patients came to his appointment today with LINH Guevara and brought a form to fill out for patient to get a walk in shower. Previous letter was for a shower chair which was asked for. Form as well as a letter from property claims manager explaining is at nurse pod for review. * Telephone Encounter - Pamella Hodges LPN - 05/26/2022 9:01 AM EST Printed and ready to be signed by provider. Pamella Hodges LPN * Telephone Encounter - Lai Turcios MD - 05/22/2022 6:09 PM EST If patient did not already get the other one printed, print the one I pended. Duration should be permanent, not temporary and the day for expiration 5 years from now in same month * Telephone Encounter - Kym Bolden LPN - 05/22/2022 3:42 PM EST Patient has a form that need to be filled out as well (another encounter). Please call patient whenboth of these have been completed. * Telephone Encounter - Bobby Doherty APRN.IRRIGATING PUMP OPERATOR - 05/22/2022 3:00 PM EST Printed * Telephone Encounter - Kym Bolden LPN - 05/22/2022 2:40 PM EST Patient's dropped off [employer] form and stated patient need handicap placard renewed. Form at nurses desk. When letter is completed call patient and give him both the letter and BMV form back. documented in this encounterGuernsey [facility] Hospital02-20-2023 Miscellaneous Notes* Telephone Encounter - Kym Bolden LPN - 06/09/2022 11:42 AM EST Attempted to contact patient but no answer and no voice mail. * Telephone Encounter - Екатерина Palma Pss - 06/09/2022 10:40 AM EST Patient has been identified by name and date of : Yes Requested Prescriptions Pending Prescriptions Disp Refills glipiZIDE XL (GLUCOTROL XL) 2.5 mg 24 hr tablet 60 tablet 2 Sig: Take 1 tablet by mouth daily with breakfast. RX INSTRUCTIONS: Patient aware RX will be sent to pharmacy. No need to notify patient. Екатерина Louie Pss documented in this encounterGuernsey [facility] Hospital02-15-2023 Miscellaneous Notes* Telephone Encounter - Kasandra Cerda Pss - 06/04/2022 1:47 PM EST Pharmacy verified in Epic Patient has been identified by name and date of : Yes Patient aware RX will be sent to pharmacy. No need to notify patient. Pharmacy phones for refill(s): Requested Prescriptions Pending Prescriptions Disp Refills glipiZIDE XL (GLUCOTROL XL) 2.5 mg 24 hr tablet 30 tablet 5 Sig: Take 1 tablet by mouth daily with breakfast. Date of last office visit : 03/24/2022 Date of next office visit : 06/16/2022 Last 2 Encounter Wt Readings: Date: Wt: 05/15/2022 59.3 kg (130 lb 12.8 oz) 03/24/2022 63 kg (139 lb) Please advise. Kasandra Cerda Pss documented in this encounterGuernsey [facility]02-06-2023 Miscellaneous Notes* Telephone Encounter - Pamella Hodges LPN - 05/26/2022 1:36 PM EST Patients aware forms in medical records to supervisor picking crew and letter for handicap placard being sent in the mail. Pamella Hodges LPN * Telephone Encounter - Pamella Hodges LPN - 05/26/2022 12:07 PM EST Took Forms down to Medical records for patients to supervisor picking crew. Attempted again to reach patient's and recording again stating customer not available. Pamella Hodges LPN * Telephone Encounter - Pamella Hodges LPN - 05/26/2022 9:08 AM EST Attempted to reach patient's , recording states the customer is not available. Unable to leave a message. Pamella Hogdes LPN * Telephone Encounter - Lai Turcios MD - 05/22/2022 6:11 PM EST Noted * Telephone Encounter - Kym Bolden LPN - 05/22/2022 2:43 PM EST Patient's dropped off form from [employer] to be completed by Dr. Turcios so patient can receive a shower chair in her apartment. Once completed please call patients for supervisor picking crew documented in this encounterGuernsey [facility] Hospital01-26-2023 History of Present illness Narrative* Asiya John APRN.PRODUCT SAFETY ENGINEER - 05/15/2022 4:30 PM EST Images from the original note were not included. [facility] [place] Follow-up Visit Follow-up note May 15, 2022 HPI: Ms. Garcia presents today for a follow-up visit. Per her previous visit on 12/12/21: G20 Parkinson's disease (HCC) (primary encounter diagnosis) R26.81 Gait instability F03.90 Dementia without behavioral disturbance, unspecified dementia type (HCC) R44.1 Visual hallucinations Comment: Patient previously presenting to office for tremor with history and exam suggestive of PD vs Parkinson plus (given hallucinations and dementia) vs drug induced parkinsonism (given use of Risperdal). MRI of brain noting generalized volume loss and moderate chronic microvascular ischemic changes. Given findings on imaging, concern for possible vascular component as well as Parkinson plus verses idiopathic PD. She is currently taking Sinemet 1.5mg TID. No tremors noted on exam. However, when discussing if improvement of symptoms with increase in Sinemet dose pt is uncertain and only notes worsening of lumbar pain. Her states he believes hallucinations have improved and she has only had a few brief few seconds episodes since time of last appointment. Will continue Sinemet as previously prescribed until patient is able to schedule appointment with spine medicine for improvement of lumbar symptoms. She also continues to take Namenda 10mg BID for memory concerns. Modified MOCA today with score of 15/24. Still frequently watching television and again encouraged completion of word puzzles and physical activity within limitations. Recommend continuing physical therapy for stability and balance aswell as to gain mobility to further participate in physical activities for brain health. M54.50 Midline low back pain without sciatica, unspecified chronicity R32, R15.9 Bowel and bladder incontinence M54.50 Lumbar pain Comment: Pt's main concern at time of appointment today is low back pain. She does also note a history of bowel and bladder incontinence. MRI lumbar spine from 2021 noting mild to moderate changes. Consult placed to physical therapy at time of previous appointment, however, pt only able to attend one session per month and has not been completing HEP. Discussed importance of completing exercises at home. Also, given persistent pain which, on exam, appears to greatly interfere with ability to ambulate, will place consult to spine medicine for further evaluation and interventions. Z86.73 History of stroke E11.9 Type 2 diabetes mellitus without complication, without long-term current use of insulin ([facility]) Comment: Chronic L basal ganglia infarcts on previous MRI. She has been taking ASA 81mg regularly. Continues to take statin. No new stroke symptoms since time of previous appointment. Continue to follow with PCP for BG, BP, and cholesterol management. Goals remain BP <140/90 and BG <140. Denies new stroke sx. Denies weakness, speech changes, vision changes. She did have one fall since previous appointment. She did hit her head. This was a few weeks ago. Main concern is urination. She will be seeing urology. Has appointment in [place]. Back pain is a little better. Has not gone to physical therapy or doing exercises at home. Only walks to the bathroom and back at home. Does this three to four times per day. Does not feel like she is getting weaker. Cannot stand for any length of time. Did not see spine medicine in the interim. Has not had injections or treatment in the past. No changes to memory. Sometimes remembers things her can't remember. Not forgetting names. Not getting lost in familiar places. Takes medications regularly; uses pillbox. Her helps her prep the medications. Denies hallucinations. Sleeps in recliner in living room; this is due to incontinence. Uses pads on chair. No dangerous behavior. Still taking Namenda 10mg BID. Bowel movements are still fluctuating. Denies weird behaviors. Still has tremor but tremor has remained the same. No worsening. Tremor to R leg and arm. Denies head tremor. Taking Sinemet. Only one tablet three times daily. Still taking risperidone. MOCA 05/15/22 Visuospatial Correct clock shape and numbers (2/4) Naming (0-3) (3/3) Memory Words, up to 2 trials: Face, Velvet, Cheondoism, Timoteo, Red (no points) 4/5 first try, 4/5 second try Attention forwards: 2 1 8 5 4 (0-1) (04/20) Attention backwards: 7 4 2 (0-1) (04/20) Serial subtraction by 7: [id number] (3 points for correct 4 or 5; 2 points for 2 or 3 correct; 1 point for 1 correct) 100-93 (1/3) Language: repeat: I only know that Toi is the one to help today (0-1) (0/1) Language: repeat: The cat always hid under the couch when dogs were in the room (0-1) (0/1) Fluency: max words beginning with the letter F (1 point if 11 or more words) ll (0/1) Abstraction: practice banana-orange=fruit. 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 solifenacin (VESICARE) 5 mg tablet Take 1 tablet by mouth once daily. risperiDONE (RISPERDAL) 0.5 mg tablet Take 1 tablet by mouth twice daily. losartan (COZAAR) 50 mg tablet Take 1 tablet by mouth once daily. metFORMIN (GLUCOPHAGE) 500 mg tablet Take 1 tablet by mouth twice daily with meals. metoprolol tartrate, short acting, (LOPRESSOR) 25 mg tablet Take 1 tablet by mouth twice daily. memantine (NAMENDA) 10 mg tablet Take 1 tablet by mouth twice daily. carbidopa-levodopa (SINEMET 25-100) 25-100 mg per tablet Take 1.5 tablets by mouth every morning AND 1.5 tablets every afternoon AND 1.5 tablets every evening. (8AM, Noon, 4PM).. glipiZIDE (GLUCOTROL XL) 2.5 mg 24 hr tablet Take 1 tablet by mouth daily with breakfast. oxybutynin ER (DITROPAN XL) 15 mg 24 hr Extended Rel Tab Take 1 tablet by mouth daily at bedtime. (Patient not taking: No sig reported) carbidopa-levodopa (SINEMET 25-100) 25-100 mg per tablet Take 1.5 tablets by mouth every morning AND 1.5 tablets every afternoon AND 1.5 tablets every evening. (8AM, Noon, 4PM).. glipiZIDE (GLUCOTROL XL) 2.5 mg 24 hr tablet Take 1 tablet by mouth daily with breakfast. aspirin, enteric coated (ECOTRIN LOW STRENGTH) 81 mg EC tablet Take 1 tablet by mouth once daily. levothyroxine (SYNTHROID) 50 mcg tablet Take 1 tablet by mouth once daily. simvastatin (ZOCOR) 20 mg tablet Take 1 tablet by mouth daily at bedtime. polyethylene glycol 3350 (MIRALAX, GLYCOLAX) 17 gram/dose powder Will try taking Thursday and Fridays. Can increase dose as discussed. (Patient not taking: No sig reported) WALKER ROLLATOR SEAT WITH 6 WHEELS - RED Rollator No current facility-administered medications on file prior to visit. Social History Tobacco Use Smoking status: Former Types: Cigarettes Quit date: 09/13/2005 Years since quittin.6 Smokeless tobacco: Never Vaping Use Vaping Use: Never used Substance Use Topics Alcohol use: Yes Comment: Very Little Drug use: Never ALLERGIES Allergen Reactions Lisinopril Cough Review of Systems: Cardiopulmonary: denies chest pain Respiratory: denies shortness of breath GI/: denies recent nausea, vomiting, diarrhea, constipation, + incontinence Musculoskeletal: denies + weakness Back/spine: denies + low back, mid back, or cervical pains Neuro: Denies + tremors, loss of feeling, dizziness, seizure, blackout, paresthesia, facial paresthesia, facial weakness, difficulty in speech, slurring of words, dysarthria, dysphagia, + memory loss, headache, vision changes, loss of hearing Physical Exam: 05/15/22 1632 BP: 100/66 Pulse: 118 Resp: 16 Temp: 37.4 C (99.4 F) TempSrc: Temporal SpO2: 96% Weight: 59.3 kg (130 lb 12.8 oz) Patient is alert and in no distress. Dress is appropriate. Mood is appropriate Breathing appears regular and unstressed Neurologic examination: MOCA above. CN: Pupils equal and reactive to light, extraocular movements intact with no nystagmus with exception of inability for R eye to track in and up, face is symmetric with no facial droop (not currently wearing dentures and mild left facial weakness-per pt and this is baseline), facial sensation intact bilaterally to light touch V1-3, hearing decreased on L compared to R, symmetric elevation of the soft palate, tongue is midline with no deviation, shoulder shrug is symmetric. Motor exam shows 5/5 strength symmetric through the upper and lower extremities in all groups tested. Sensory intact to light touch in all extremities. Vibratory sensation is intact and symmetric all extremities. Deep tendon reflexes are symmetric at the biceps, brachioradialis, triceps, patella, and achilles bilaterally. Coordination: No dysmetria on finger to nose. No drift seen. CATHY of pronation and supination, finger and hand tapping intact. Toe tapping intact bilaterally. Mild rigidity to BUE. Resting tremor to BUE intermittently; more prevalent than time of previous appointment. Intermittent tremor to R leg. Slight shuffle with decreased arm swing bilaterally. Unable to rise from chair without using arms. Fast gait though unstable; pt uses walker at home. Stooped posture. Labs/studies: Previously Reviewed: Component Latest Ref Rng & Units 07/20/2021 Cholesterol, Total <200 mg/dL 136 Triglyceride <150 mg/dL 119 HDL Cholesterol >39 mg/dL 55 Non HDL Cholesterol <130 mg/dL 81 Fasting Time hrs 14 VLDL Cholesterol <30 mg/dL 24 TC:HDL Ratio <5.10 2.47 LDL Cholesterol <100 mg/dL 57 LDL:HDL Ratio <2.54 1.04 Hemoglobin A1C 4.3 - 5.6 % 7.0 (H) Estimated Average Glucose mg/dL 154 MRI Brain 06/20/21: IMPRESSION: No acute intracranial abnormality. Likely chronic lacunar infarcts in the left basal ganglia, moderate presumed chronic microvascular ischemic changes in the white matter, and generalized volume loss, as detailed. MRI Lumbar Spine 06/20/21: Reverse S-shaped scoliosis of the thoracolumbar spine, leftward apex in the lower thoracic spine atapproximately T10-11, rightward apex at approximately L2-3. Multilevel spondylotic changes in the lumbar spine as detailed, noting mild to moderate canal narrowing at L3-4. Varying degrees of foraminal narrowing, noting moderate right foraminal narrowing at L4-5. Additional details as above. Anatomic Thoracic/Lumbar Variant: None. L4-5 is considered the level of the iliac crest and assume there are 5 lumbar-type vertebrae. Assessment/Plan: G20 Parkinson's disease (HCC) (primary encounter diagnosis) R26.9 Abnormality of gait F03.90 Dementia without behavioral disturbance (HCC) Comment: Patient previously presenting to office for tremor with history and exam suggestive of PD vs Parkinson plus (given hallucinations and dementia) vs drug induced parkinsonism (given use of Risperdal). MRI of brain noting generalized volume loss and moderate chronic microvascular ischemic changes. Given findings on imaging, concern for possible vascular component as well as Parkinson plus verses idiopathic PD. At time of last visit she was taking Sinemet 25-100mg 1.5 tablets TID. Tremors had improved and were not seen on exam at that time. Hallucinations had resolved as well. Today, her reports that she is no longer taking 1.5 tablets but instead only taking 1 TID. She has not had any further hallucinations, however, tremor is noted at appointment today. Her reports they were informed that they should decrease Sinemet dose to one tablet, however, on review of chart do not see where/when this was discussed. She denies SE with medication. After discussion will resume 1.5 tablets. If any concerns she is aware that she can decrease back down to 1 tablet and notify the office. As notedbelow recommend increased physical acitivity and completion of PT HEP. She denies significant changes to memory and continues to take Namenda 10mg BID. No dangerous behaviors reported. MOCA unchanged at appointment today with score of 17/29. Again encouraged completion of word puzzles and physical activity within limitations. Recommend continuing physical therapy for stability and balance as well as to gain mobility to further participate in physical activities for brain health. M54.50 Midline low back pain without sciatica, unspecified chronicity R32, R15.9 Bowel and bladder incontinence M54.50 Lumbar pain Comment: Pt continues to have low back pain as well as incontinence both of which contribute to decreased ambulation. Pt was previously seen by PT and given HEP. She has since stopped completing HEP.In addition, consult was placed to spine medicine at time of last appointment, though pt has not yet scheduled appointment. Again, discussed importance of physical activity and exercise. Have asked that work on increased movement throughout the day and resume HEP. Recommend utilizing walker that she has at home for stability. She will also be following up with urology regarding urinary issues in the upcoming month. Z86.73 History of stroke E11.9 Type 2 diabetes mellitus without complication, without long-term current use of insulin (HCC) Comment: Hx of L basal ganglia infarct. Remains on ASA 81mg and statin. Denies new stroke symptoms since time of previous appointment. Continue to follow with PCP for BG, BP, and cholesterol management. Goals remain BP <140/90 and BG <140. Asiya John APRN.HECTOR I spent a total of 45 minutes on the date of the service which included preparing to see the patient, [id number] patient care, completing clinical documentation, obtaining and/or reviewing separately obtained history, performing a medically appropriate examination, and counseling and educating the patient/family/caregiver. documented in this encounterGu[facility]01-11-2023 Miscellaneous Notes* Telephone Encounter - Dasha London RN - 04/30/2022 11:42 AM EST Pts called and is notified of providers results and instructions. He voices understanding. Dasha London RN * Telephone Encounter - Smita Fox LPN - 04/29/2022 3:44 PM EST Left msg to call & speak to nurse re: lab results. Smita Fox LPN * Telephone Encounter - Shyla Hayes RN - 04/28/2022 11:19 AM EST Images from the original note were not included. Left VM for patient to call PCP office and ask for triage nurse, for message below. Shyla Hayes RN Result Notes Lai Turcios MD 04/28/2022 12:32 AM EST Lipids with low LDL at 37 and low HDL under 40. Triglycerides almost to goal under 150 being at 159. TSH within normal limits. Looks dehydrated on metabolic panel with Creatinine up from 1.39 to 1.81 and BUN up 23 to 36. Livertests were not high. Potassium also high at 5.5 Recheck labs this month to make sure Creatinine and potassium improving (make sure to drink enough fluids daily). documented in this encounterGu[facility]12-19-2022 Miscellaneous Notes* Telephone Encounter - Irina Avalos LPN - 04/07/2022 4:18 PM EST Patient has been identified by name and date of : Yes Patient phones for refill(s): Requested Prescriptions Pending Prescriptions Disp Refills solifenacin (VESICARE) 5 mg tablet 30 tablet 2 Sig: Take 1 tablet by mouth once daily. Date of last office visit in primary care: 03/24/2022 Last 2 Encounter Wt Readings: Date: Wt: 03/24/2022 63 kg (139 lb) 01/28/2022 65.8 kg (145 lb) Previous labs/tests for medication: Not applicable Please advise. Thank you. Irina Avalos LPN * Telephone Encounter - Chela Zepeda Pss - 04/07/2022 4:06 PM EST Patient has been identified by name and date of : Yes Requested Prescriptions Pending Prescriptions Disp Refills solifenacin (VESICARE) 5 mg tablet 30 tablet 2 Sig: Take 1 tablet by mouth once daily. RX INSTRUCTIONS: Patient aware RX will be sent to pharmacy. No need to notify patient. Chela Zepeda Pss documented in this encounterGuern[facility]12-05-2022 Instructions* Patient Instructions* Lai Turcios MD - 03/24/2022 11:49 AM EST Consider trial of scheduled toileting every 3 hours during the day (okay to sleep through the night). documented in this encounterGuernsey [facility]12-05-2022 History of Present illness Narrative* Lai Turcios MD - 03/24/2022 10:40 AM EST This note was created using [employer]. Subjective Silva Garcia is a 76 year old female. Patient presents with: F/U 6 months SUBJECTIVE: Silva Garcia is a 76 year old year old lady here today for 6 month follow up appointment for review of medical conditions. Really main problem is incontinence. Saw Ricardo Mcdonald. Referral made but May is the soonest. Slightly better with a change in meds. Sleeps in recliner. Not overflowing the pull-ups as much, Able to go to urinate in bathroom. Stays hydrated and drinks water through the day. Normal BMs. Only taking 1 metformin twice daily as was directed though cannot find note in chart. eGFR was donwin September so probably decreased for that. noted limited with walking. Walks hunched over some now. 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 memantine (NAMENDA) 10 mg tablet Take 1 tablet by mouth twice daily. risperiDONE (RISPERDAL) 0.5 mg tablet Take 1 tablet by mouth twice daily. metoprolol tartrate, short acting, (LOPRESSOR) 25 mg tablet Take 1 tablet by mouth twice daily. solifenacin (VESICARE) 5 mg tablet Take 1 tablet by mouth once daily. carbidopa-levodopa (SINEMET 25-100) 25-100 mg per tablet Take 1.5 tablets by mouth every morning AND 1.5 tablets every afternoon AND 1.5 tablets every evening. (8AM, Noon, 4PM).. glipiZIDE (GLUCOTROL XL) 2.5 mg 24 hr tablet Take 1 tablet by mouth daily with breakfast. oxybutynin ER (DITROPAN XL) 15 mg 24 hr Extended Rel Tab Take 1 tablet by mouth daily at bedtime. (Patient not taking: Reported on 01/28/2022) carbidopa-levodopa (SINEMET 25-100) 25-100 mg per tablet Take 1.5 tablets by mouth every morning AND 1.5 tablets every afternoon AND 1.5 tablets every evening. (8AM, Noon, 4PM).. glipiZIDE (GLUCOTROL XL) 2.5 mg 24 hr tablet Take 1 tablet by mouth daily with breakfast. aspirin, enteric coated (ECOTRIN LOW STRENGTH) 81 mg EC tablet Take 1 tablet by mouth once daily. levothyroxine (SYNTHROID) 50 mcg tablet Take 1 tablet by mouth once daily. losartan (COZAAR) 50 mg tablet Take 1 tablet by mouth once daily. metFORMIN (GLUCOPHAGE) 500 mg tablet Take 2 tablets by mouth every morning AND 2 tablets every evening with meals simvastatin (ZOCOR) 20 mg tablet Take 1 tablet by mouth daily at bedtime. polyethylene glycol 3350 (MIRALAX, GLYCOLAX) 17 gram/dose powder Will try taking Thursday and Fridays. Can increase dose as discussed. (Patient not taking: Reported on 01/28/2022) WALKER ROLLATOR SEAT WITH 6 WHEELS - RED Rollator No current facility-administered medications for this visit. Review of Systems Objective There were no vitals taken for this visit. Physical Exam Constitutional: Appearance: Normal appearance. HENT: Head: Normocephalic. Eyes: Conjunctiva/sclera: Conjunctivae normal. Cardiovascular: Rate and Rhythm: Normal rate and regular rhythm. Heart sounds: Normal heart sounds. Pulmonary: Effort: Pulmonary effort is normal. Breath sounds: Normal breath sounds. Skin: General: Skin is warm and dry. Neurological: General: No focal deficit present. Mental Status: She is alert and oriented to person, place, and time. Comments: In wheelchair; tremor right hand. Psychiatric: Mood and Affect: Mood normal. Behavior: Behavior normal. Thought Content: Thought content normal. Judgment: Judgment normal. Assessment and Plan Encounter Diagnosis ICD-10-CM 1. Type 2 diabetes mellitus without complication, without long-term current use of insulin (HCC) E11.9 metFORMIN (GLUCOPHAGE) 500 mg tablet LIPID PANEL, NONFASTING HGB A1C COMP METABOLIC PANEL 2. Acquired hypothyroidism E03.9 TSH BLD 3. Parkinson's disease (HCC) G20 4. Urinary incontinence, unspecified type R32 5. Positive for macroalbuminuria R80.9 6. Primary hypertension I10 metoprolol tartrate, short acting, (LOPRESSOR) 25 mg tablet COMP METABOLIC PANEL CBC 7. Encounter for long-term current use of medication Z79.899 COMP METABOLIC PANEL CBC Above issues addressed with patient. Patient involved in shared decision making for management of medical issues. History and medications reviewed. Epic updated as needed Refills and/or prescriptions taken care of and meds adjusted as indicated after reviewed history, exam and labs. Health Maintenance reviewed. Updated record and/or ordered tests as recorded. Encouraged on efforts at healthy diet and regular exercise and adequate sleep. Needs to keep working on diet and exercise with lifestyle changes for effective weight loss as wellas control of DM, and control of BP and lipids. Lai Turcios MD documented in this encounterGu[facility]11-22-2022 Miscellaneous Notes* Telephone Encounter - Sara Dinero APRN.CNP - 03/11/2022 1:03 PM EST PDMP website checked and validated. All prescriptions have been APPROPRIATELY filled. No suspiciousactivity was identified. 03/11/2022 by Sara Dinero APRN.CNP * Telephone Encounter - Kasandra Cerda Pss - 03/11/2022 11:27 AM EST is calling for Silva LORazepam (ATIVAN) 0.5 mg (Discontinued) 60 tablet 2 09/30/2021 12/02/2021 Sig: Take 2 tablets by mouth daily at bedtime for 90 days. Sent to pharmacy as: LORazepam (ATIVAN) 0.5 mg Class: Normal Patient would need 180 tablets instead of the 60 ordered. Please sent to [facility] in [place]. documented in this encounterGu[facility]10-31-2022 Miscellaneous Notes* Telephone Encounter - Deepthi Sandoval - 02/17/2022 4:18 PM EDT Pt's notified and verbalizes understanding. [place] was scheduled due to [employer] Utility Worker specialty. Deepthi Sandoval * Telephone Encounter - Deepthi Sandoval - 02/17/2022 12:20 PM EDT Lab order is in place. Ricardo, does pt need to go to [place] CURLING MACHINE OPERATOR or can she come here to our [place] site? Please review and advise. Deepthi Sandoval MA * Telephone Encounter - Griselda Cowan LPN - 02/14/2022 3:26 PM EDT Spouse can to pcp office. 1.Pt spouse can in to get container for another urine check. Lab reports order is needed. 2. Spouse has question as to why pt needs utility sales and service manager in [place]? Isn't [facility] utility sales and service manager able to see here in [place]? Call spouse with info. documented in this [facility]10-25-2022 Miscellaneous Notes* Telephone Encounter - Aidee Del Rio - 02/11/2022 12:06 PM EDT Patient has been identified by name and date of : Yes Requested Prescriptions Pending Prescriptions Disp Refills metoprolol tartrate, short acting, (LOPRESSOR) 25 mg tablet 60 tablet 5 Sig: Take 1 tablet by mouth twice daily. RX INSTRUCTIONS: Patient aware RX will be sent to pharmacy. No need to notify patient. Aidee Del Rio documented in this [facility]10-24-2022 Miscellaneous Notes* Telephone Encounter - Josiane Villalta LPN - 02/10/2022 10:54 AM EDT Called patient- answered phone. Verified name and date of of patient. Reminded of need for culture. Verbalizes understanding. Josiane Villalta LPN * Telephone Encounter - Josiane Villalta LPN - 02/07/2022 4:24 PM EDT Called patient. No answer- left message. Message for patient- reminder of need for urine for culture. Has not been collected as of today. Josiane Villalta LPN documented in this encounterGu[facility]10-13-2022 Miscellaneous Notes* Telephone Encounter - Josiane Villalta LPN - 01/30/2022 11:28 AM EDT Patient , Jeet called. Verified name and date of of patient. States he received a call from someone [facility] and informed of encounter message and provided number to call prior to transferring call. Josiane Villalta LPN documented in this encounterGuernsey [facility]10-11-2022 History of Present illness Narrative* Ricardo Mcdonald PA-C - 01/28/2022 5:33 PM EDT Images from the original note were not included. [facility] NEW PATIENT CLINIC NOTE SERVICE DATE: 01/28/2022 SERVICE TIME: 5:33 PM NAME: Silva Garcia CHIEF COMPLAINT: Urinary incontinence HISTORY OF PRESENT ILLNESS: Silva Garcia is a 76 year old Male with PMH including Parkinson, DM II, CAD, Dementia presenting with complete urinary incontinence wearing pads daily and changes 6-10 time per day, seems to be started a year ago when started on new Parkinson's medication , but is not certain and they have tried and failed at lest 3-4 anticholinergic bladder medication s with no help The patient reports this is very difficult to keep up with and cost of pads etc. Is too much Discussed Urodynamics/Cystoscopy to get an idea if there is any awareness of bladder And discussed josue catheter placement and monthly exchanges to help with managing incontinence And offered referral to female urinary incontinence specialist if wanted 30 LUTS: DYSURIA: no URGENCY: Yes NOCTURIA: 0 per night STRAINING TO VOID: No EMPTIES COMPLETELY: Yes UTI: No GROSS HEMATURIA: no MICROSCOPIC HEMATURIA: no UA DIPSTICK POSITIVE ONLY: no Incontinence - Yes Other symptoms: LABS: No results found for: TESTOST No results found for: TESTFREE No results found for: PSA Hematocrit (%) Date Value 10/05/2021 39.3 10/05/2015 Test sent to [facility]. 02/02/2015 Test sent to [facility]. 10/25/2012 39.6 MEDICATIONS: solifenacin (VESICARE) 5 mg tablet Take 1 tablet by mouth once daily. LORazepam (ATIVAN) 0.5 mg Take 2 tablets by mouth daily at bedtime for 90 days. glipiZIDE (GLUCOTROL XL) 2.5 mg 24 hr tablet Take 1 tablet by mouth daily with breakfast. carbidopa-levodopa (SINEMET 25-100) 25-100 mg per tablet Take 1.5 tablets by mouth every morning AND 1.5 tablets every afternoon AND 1.5 tablets every evening. (8AM, Noon, 4PM).. aspirin, enteric coated (ECOTRIN LOW STRENGTH) 81 mg EC tablet Take 1 tablet by mouth once daily. levothyroxine (SYNTHROID) 50 mcg tablet Take 1 tablet by mouth once daily. memantine (NAMENDA) 10 mg tablet Take 1 tablet by mouth twice daily. losartan (COZAAR) 50 mg tablet Take 1 tablet by mouth once daily. metFORMIN (GLUCOPHAGE) 500 mg tablet Take 2 tablets by mouth every morning AND 2 tablets every evening with meals metoprolol tartrate, short acting, (LOPRESSOR) 25 mg tablet Take 1 tablet by mouth twice daily. risperiDONE (RISPERDAL) 0.5 mg tablet Take 1 tablet by mouth twice daily. simvastatin (ZOCOR) 20 mg tablet Take 1 tablet by mouth daily at bedtime. WALKER ROLLATOR SEAT WITH 6 WHEELS - RED Rollator carbidopa-levodopa (SINEMET 25-100) 25-100 mg per tablet Take 1.5 tablets by mouth every morning AND 1.5 tablets every afternoon AND 1.5 tablets every evening. (8AM, Noon, 4PM).. oxybutynin ER (DITROPAN XL) 15 mg 24 hr Extended Rel Tab Take 1 tablet by mouth daily at bedtime. (Patient not taking: Reported on 01/28/2022) glipiZIDE (GLUCOTROL XL) 2.5 mg 24 hr tablet Take 1 tablet by mouth daily with breakfast. polyethylene glycol 3350 (MIRALAX, GLYCOLAX) 17 gram/dose powder Will try taking Thursday and Fridays. Can increase dose as discussed. 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 ENMT: Negative CARDIOVASCULAR:NO CHEST PAIN, PALPITATIONS, ANKLE EDEMA RESPIRATORY: No chronic cough, wheezing, dyspnea, hemoptysis. GENITOURINARY: SEE HPI MUSCULOSKELETAL:NO CHRONIC BACK PAIN, ARTHRITIS, CHRONIC NECK PAIN SKIN: NO VARICOSE VEINS, RASH, ABNORMAL ITCHING HEME/LYMPH/IMMUNE:Negative for prolonged bleeding, bruising easily or swollen nodes NEUROLOGICAL: NO HEADACHES, NUMBNESS, SEIZURES, STROKE DIABETES: yes All other systems reviewed and are negative PHYSICAL EXAMINATION: Blood pressure 110/60, pulse (!) 124, temperature 37.2 C (99 F), temperature source Temporal, resp.rate 14, height 156.8 cm (5' 1.75 ), weight 65.8 kg (145 lb), SpO2 95 %. GENERAL: WNL nutrition, no deformities, healthy appearing NEURO: Awake, alert and oriented x 3 and Normal gait PSYCH: No signs of depression, anxiety, or agitation ENMT (Ear, Nose, Mouth, Throat): No masses, adenopathy, icterus. Thyroid nonpalpable RESP: NL effort, no retractions or purse-lip breathing. CV: No extremity swelling, varices, edema, pallor, erythema GASTROINTESTINAL: Soft, nontender, nondistended, no masses. HERNIAS: None SKIN: No rash, lesions No palpable lymphadenopathy MUSCULOSKELETAL: Extremities normal. No deformities, edema, clubbing or skin discoloration. PROBLEM LIST REVIEW: Yes LABS: Results for orders placed or performed in visit on 01/28/22 UA DIP, URINE (POC) Result Value Ref Range GLUCOSE UA (POCT) Negative Negative mg/dL BILIRUBIN UA (POCT) Negative Negative KETONE UA (POCT) Negative Negative mg/dL SPECIFIC GRAVITY UA (POCT) >=1.030 1.005 - 1.030 HEMOGLOBIN/BLOOD UA (POCT) Large (A) Negative PH UA (POCT) 6.0 4.5 - 8.0 PROTEIN UA (POCT) 100 (A) Negative mg/dL UROBILINOGEN UA (POCT) 0.2 Normal E.U./dL NITRITE UA (POCT) Negative Negative LEUKOCYTES UA (POCT) Large (A) Negative COLOR UA (POCT) Light yellow CLARITY UA (POCT) Cloudy Urine Culture Pended until Thursday if catheter inserted we will get urine from josue PROCEDURES: PVR: 11 ml IMAGING: IMPRESSION/PLAN: 76 year old female with 1. Parkinson's disease (HCC) - ICD9: 332.0, ICD10: G20 2. Dementia without behavioral disturbance (HCC) - ICD9: 294.20, ICD10: F03.90 3. Urinary incontinence, unspecified type - ICD9: 788.30, ICD10: R32 I spent a total of 30 minutes on the date of the service which included preparing to see the patient, face to face patient care, completing clinical documentation, obtaining and/or reviewing separately obtained history, performing a medically appropriate examination, counseling and educating the pat ient/family/caregiver, ordering medications, tests, or procedures, and care coordination. MANNY Cotter MT, PA-C * Josiane Villalta LPN - 01/28/2022 4:54 PM EDT Verified name and date of . CC Post Void Residual HPI: Silva Garcia is a 76 year old female. The patient is here now for an appointment with MANNY Cotter MT, PA-COV. Procedure: Explained procedure to patient and verbalizes understanding. Performed a PVR. Patient urinated and instructed to empty bladder as much as possible just prior to having PVR done using bladder ultrasound scanner. Results of scan: 11 mL The patient tolerated the procedure well. Plan: Appointment with Ricardo. documented in this encounterGuern[facility]10-06-2022 History of Present illness Narrative* Ronel Dickens RDMS - 01/23/2022 4:00 PM EDT Radiology Service Progress Note PATIENT NAME: Silva Garcia DATE OF SERVICE: January 23, 2022 TIME: 4:27 PM PATIENT IDENTITY VERIFICATION COMPLETED USING TWO (2) IDENTIFIERS: Name and Date of confirmedby patient verbally. FALL SCREENING: Has the patient had 2 falls in the last year or 1 fall with injury or currently using an Ambulatory Assistive Device (Walker, Cane, Wheelchair, Crutches, etc.)? Yes, Patient High Riskfor Falls What interventions were put in place to prevent falls during this visit? Instructed Patient to Callfor Help if Needed, Offered Assistance with Transfers/Clothing, Instructed Patient to Remain Seated(Not on Exam Table) Until Exam, Increased Observations by Caregivers, and Escorted to/from Restroom PATIENT GENDER DATA: Female. status: : No status: NO. PATIENT RELEVANT IMPLANT DATA REVIEWED: Not Applicable RADIOLOGY DEPARTMENT: Ultrasound PERIPHERAL IV DATA: Not applicable SIGNED BY: Ronel Dickens RDMS RVT January 23, 2022 4:27 PM documented in this encounterGuernsey [facility]09-27-2022 History of Present illness Narrative* Bobby Doherty APRN.IRRIGATING PUMP OPERATOR - 01/14/2022 4:13 PM EDT SUBJECTIVE: SHINGRIX VACCINE(1 of 2) Never done DTAP,TDAP,TD(1 - Tdap) due on 10/06/2015 DILATED RETINAL EXAM due on 06/18/2017 DIABETIC FOOT EXAM due on 07/30/2017 COLORECTAL CANCER SCREENING due on 07/31/2017 ADVANCE DIRECTIVE DISCUSSION Never done COVID-19 VACCINE(4 - Booster for Moderna series) due on 06/03/2021 INFLUENZA(1) due on 12/19/2021 HPI Silva Garcia is a 76 year old female. PMH significant for ACTIVE PROBLEM LIST Panic Disorder Without Agoraphobia Hearing Loss Hypertension S/P Cabg X 3 Ashd (Arteriosclerotic Heart Disease) Diabetes Mellitus Type 2, Uncomplicated (Hcc) Chronic Pruritic Rash in Adult Parkinson's Disease (Hcc) Chronic Low Back Pain Without Sciatica Ddd (Degenerative Disc Disease), Lumbar Facet Arthropathy, Lumbar Dementia Without Behavioral Disturbance (Hcc) Acquired Hypothyroidism Her notes increased urinary incontinence. Previously used to have incontinence 2-3 times per week now 3-4 times per day. She notes she does not feel when she is urinating especially at night.She is using pads. Does not think oxybutynin is helping much. No reported fever, abdominal pain, increased odor of urine. Review of Systems Genitourinary: Urinary incontinence Objective BP 108/72 Pulse 120 Resp 16 Wt 64.9 kg (143 lb) SpO2 94% BMI 27.93 kg/m Physical Exam Vitals and nursing note reviewed. Constitutional: Appearance: Normal appearance. HENT: Head: Normocephalic and atraumatic. Eyes: Conjunctiva/sclera: Conjunctivae normal. Cardiovascular: Rate and Rhythm: Normal rate. Pulmonary: Effort: Pulmonary effort is normal. Abdominal: General: Bowel sounds are normal. Palpations: Abdomen is soft. Skin: General: Skin is warm and dry. Neurological: Mental Status: She is alert. Mental status is at baseline. ALLERGIES Allergen Reactions Lisinopril Cough Medications carbidopa-levodopa (SINEMET 25-100) 25-100 mg per tablet Take 1.5 tablets by mouth every morning AND 1.5 tablets every afternoon AND 1.5 tablets every evening. (8AM, Noon, 4PM).. LORazepam (ATIVAN) 0.5 mg Take 2 tablets by mouth daily at bedtime for 90 days. glipiZIDE (GLUCOTROL XL) 2.5 mg 24 hr tablet Take 1 tablet by mouth daily with breakfast. oxybutynin ER (DITROPAN XL) 15 mg 24 hr Extended Rel Tab Take 1 tablet by mouth daily at bedtime. aspirin, enteric coated (ECOTRIN LOW STRENGTH) 81 mg EC tablet Take 1 tablet by mouth once daily. levothyroxine (SYNTHROID) 50 mcg tablet Take 1 tablet by mouth once daily. memantine (NAMENDA) 10 mg tablet Take 1 tablet by mouth twice daily. losartan (COZAAR) 50 mg tablet Take 1 tablet by mouth once daily. metFORMIN (GLUCOPHAGE) 500 mg tablet Take 2 tablets by mouth every morning AND 2 tablets every evening with meals metoprolol tartrate, short acting, (LOPRESSOR) 25 mg tablet Take 1 tablet by mouth twice daily. risperiDONE (RISPERDAL) 0.5 mg tablet Take 1 tablet by mouth twice daily. simvastatin (ZOCOR) 20 mg tablet Take 1 tablet by mouth daily at bedtime. polyethylene glycol 3350 (MIRALAX, GLYCOLAX) 17 gram/dose powder Will try taking Thursday and Fridays. Can increase dose as discussed. solifenacin (VESICARE) 5 mg tablet Take 1 tablet by mouth once daily. carbidopa-levodopa (SINEMET 25-100) 25-100 mg per tablet Take 1.5 tablets by mouth every morning AND 1.5 tablets every afternoon AND 1.5 tablets every evening. (8AM, Noon, 4PM).. glipiZIDE (GLUCOTROL XL) 2.5 mg 24 hr tablet Take 1 tablet by mouth daily with breakfast. 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 Urinary incontinence, unspecified type - ICD9: 788.30, ICD10: R32 (primary diagnosis) 2. Parkinson's disease (HCC) - ICD9: 332.0, ICD10: G20 3. Dementia without behavioral disturbance, unspecified dementia type (HCC) - ICD9: 294.20, ICD10: F03.90 Will stop oxybutynin. Try Vesicare. If working well recommend mail order care home script, should be low cost per EPIC review. - CONSULT TO UROLOGY - PELVIS BLADDER Bobby Doherty APRN.IRRIGATING PUMP OPERATOR Medical Decision Making: Problems: Moderate: New problem with uncertain prognosis Risk: Moderate: Drug management Medical Decision Making Level: 4 - Moderate documented in this [facility]22 Miscellaneous Notes* Telephone Encounter - Griselda Cowan LPN - 01/01/2022 2:13 PM EDT No return call. * Telephone Encounter - Griselda Cowan LPN - 12/30/2021 10:52 AM EDT Message left again to pt's spouses number to return call to a nurse to review pcp's response to labs from September or review the my chart message. * Telephone Encounter - Griselda Cowan LPN - 12/11/2021 1:34 PM EDT Message left to pt on mobile phone which says is husbands number to either return call to a nurse or review the my chart message. * Telephone Encounter - Griselda Cowan LPN - 12/10/2021 10:33 AM EDT ----- Message from Lai Turcios MD sent at 12/08/2021 5:08 PM EDT ----- CBC fine Cr and BUN up--make sure to stay hydrated and drink enough noncaffeinated fluids daily Glucose up--make sure to get enough protein with meals daily to help with glucose and also keep up albumin. TG will improve to under 150 with limiting processed carbs. Noted that TG used to be higherso is much better now. HgA1C okay in 7 range. TSH is fine. T4 within normal limits. T3 a little low but since other two levels fine, no change needed. Would repeat urine since UACR was so much higher than when last tested here 2017 Labs ordered so may do before March appointment so sewer pipe layer discuss during appointment documented in this encounterGu[facility]08-25-2022 History of Present illness Narrative* Asiya John APRN.PRODUCT SAFETY ENGINEER - 12/12/2021 4:30 PM EDT Images from the original note were not included. [facility] [place] Follow-up Visit Follow-up note December 12, 2021 HPI: Ms. Garcia presents today for a follow-up visit. Per her previous visit on 08/22/21: G20 Parkinson's disease (HCC) (primary encounter diagnosis) R26.81 Gait instability F03.90 Dementia without behavioral disturbance, unspecified dementia type (HCC) R44.1 Visual hallucinations Comment: Patient previously presenting to office for tremor with history and exam suggestive of PD vs Parkinson plus (given hallucinations and dementia) vs drug induced parkinsonism (given use of Risperdal). MRI of brain noting generalized volume loss and moderate chronic microvascular ischemic changes. Given findings on imaging, concern for possible vascular component as well as Parkinson plus verses idiopathic PD. For improvement of symptoms she was started on Sinemet 25-100mg which led to improvement in tremor and improvement in gait, though mild symptoms still present. Therefore, Sinemet was increased to 1.5tablets TID at time of previous appointment and today she notes possible further improvement. Will continue current Sinemet dose of 1.5 tablets TID. Also remains on Namenda 10mg BID for memory concerns. MOCA completed today with score of 22/28. She reports that she has not been completing word puzzles or participating in any physical activity at home. Recommend continuing to complete mentally stimulating activities for brain exercise (i.e. crossword puzzles, social interactions...) as well as re gular physical exercise within patient limitations. Again reviewed importance of physical therapy for gait stability and balance and pt and agreeable to schedule. M54.50 Midline low back pain without sciatica, unspecified chronicity R32, R15.9 Bowel and bladder incontinence Comment: Previously reporting low back pain as well as bowel and bladder incontinence. No further changes in bowel or bladder. Today she does report some improvement of pain. Consult previously placed to physical therapy, however, she has not yet gone. She will schedule after appointment today. Also discussed consult to spine medicine, however, she would like to hold off at this time. Joselito86.73 History of stroke E11.9 Type 2 diabetes mellitus without complication, without long-term current use of insulin ([facility]) Comment: Chronic L basal ganglia infarcts on previous MRI. Instructed to restart ASA at previous appointment, however, she has not yet done so. Will begin ASA 81mg after appointment today. Remains onsimvastatin. In interim, A1C completed and noted to elevated. She has since had follow up with PCP and medication was adjusted. No stroke symptoms reported since previous appointment. Goals remain BP<140/90 and BS <140. Since August she reports she has been having increased back problems. Cannot stand for any length of time and has to sit down often. Causing difficulty with showering, using the bathroom. Has had trouble with urinary continence of bowel and bladder; only on occasion though occurring more frequently. Had a few accidents. Wears depends. Her helps her to shower and she can't grain grader the shower for length of time. Considering shower chair. She did do home PT. Can only go once per month. Has another appointment this month. Shewas given exercises the first time PT came out; has not been doing these regularly. Sleeps often in her chair. Doesn't get out of the recliner often. Still has tremor; no improvement since time of previous visit. States she cannot walk at all due toback pain. Not doing any activities with her hands. Her states that Sinemet was helping delusions. Has only had a few spells very briefly of weird nonsensical behavior. He gives the example of one time she thought there was someone in the apartment but then a few seconds later they were gone. Still taking Namenda 10mg BID. Denies SE with Namenda. But then reports that she will have constipation and then will take Miralax but then will have diarrhea and have accidents. Discussed starting regularly schedule as recommended by PCP. States this had occurred prior to initiation of Namenda. Denies focal weakness, loss of sensation, speech changes. Currently taking ASA and Simvastatin. Following with PCP regarding BG. Typically sits in the chair and watches tv. No conversation. Will only answer a few questions. MOCA 08/22/21 Naming (0-3) (3/3) Memory Words, up to 2 trials: Face, Velvet, Cheondoism, Timoteo, Red (no points) 4/5 first try, 4/5 second try Attention forwards: 2 1 8 5 4 (0-1) (04/20) Attention backwards: 7 4 2 (0-1) (04/20) Serial subtraction by 7: [id number] (3 points for correct 4 or 5; 2 points for 2 or 3 correct; 1 point for 1 correct) [id number] (0/3) Language: repeat: I only know that Toi is the one to help today (0-1) (04/20) Language: repeat: The cat always hid under the couch when dogs were in the room (0-1) (0/1) Fluency: max words beginning with the letter F (1 point if 11 or more words) ll (0/1) Abstraction: practice banana-orange=fruit. 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 carbidopa-levodopa (SINEMET 25-100) 25-100 mg per tablet Take 1.5 tablets by mouth every morning AND 1.5 tablets every afternoon AND 1.5 tablets every evening. (8AM, Noon, 4PM).. glipiZIDE (GLUCOTROL XL) 2.5 mg 24 hr tablet Take 1 tablet by mouth daily with breakfast. aspirin, enteric coated (ECOTRIN LOW STRENGTH) 81 mg EC tablet Take 1 tablet by mouth once daily. carbidopa-levodopa (SINEMET 25-100) 25-100 mg per tablet Take 1.5 tablets by mouth every morning AND 1.5 tablets every afternoon AND 1.5 tablets every evening. (8AM, Noon, 4PM).. glipiZIDE (GLUCOTROL XL) 2.5 mg 24 hr tablet Take 1 tablet by mouth daily with breakfast. levothyroxine (SYNTHROID) 50 mcg tablet Take 1 tablet by mouth once daily. LORazepam (ATIVAN) 0.5 mg Take 2 tablets by mouth daily at bedtime for 90 days. memantine (NAMENDA) 10 mg tablet Take 1 tablet by mouth twice daily. losartan (COZAAR) 50 mg tablet Take 1 tablet by mouth once daily. metFORMIN (GLUCOPHAGE) 500 mg tablet Take 2 tablets by mouth every morning AND 2 tablets every evening with meals metoprolol tartrate, short acting, (LOPRESSOR) 25 mg tablet Take 1 tablet by mouth twice daily. risperiDONE (RISPERDAL) 0.5 mg tablet Take 1 tablet by mouth twice daily. simvastatin (ZOCOR) 20 mg tablet Take 1 tablet by mouth daily at bedtime. polyethylene glycol 3350 (MIRALAX, GLYCOLAX) 17 gram/dose powder Will try taking Thursday and Fridays. Can increase dose as discussed. WALKER ROLLATOR SEAT WITH 6 WHEELS - RED Rollator (Patient not taking: Reported on 09/23/2021 ) No current facility-administered medications on file prior to visit. Social History Tobacco Use Smoking status: Former Types: Cigarettes Quit date: 09/13/2005 Years since quittin.2 Smokeless tobacco: Never Substance Use Topics Alcohol use: Yes Comment: Very Little ALLERGIES Allergen Reactions Lisinopril Cough Review of Systems: Cardiopulmonary: denies chest pain Respiratory: denies shortness of breath GI/: denies recent nausea, vomiting, diarrhea, constipation, + incontinence Musculoskeletal: denies + weakness Back/spine: denies + low back, mid back, or cervical pains Neuro: Denies + tremors, loss of feeling, dizziness, seizure, blackout, paresthesia, facial paresthesia, facial weakness, difficulty in speech, slurring of words, dysarthria, dysphagia, + memory loss, headache, vision changes, loss of hearing Physical Exam: 12/12/21 1631 BP: 98/64 Pulse: 97 Resp: 28 Temp: 36.7 C (98.1 F) TempSrc: Temporal Artery SpO2: 95% Weight: 63.6 kg (140 lb 3.2 oz) Patient is alert and in no distress. Dress is appropriate. Mood is appropriate Breathing appears regular and unstressed Neurologic examination: MOCA above. CN: Pupils equal and reactive to light, extraocular movements intact with no nystagmus with exception of inability for R eye to track in and up, face is symmetric with no facial droop (not currently wearing dentures and mild left facial weakness-per pt and this is baseline), facial sensation intact bilaterally to light touch V1-3, hearing decreased on L, symmetric elevation of the soft palate, tongue is midline with no deviation, shoulder shrug is symmetric. Motor exam shows 5/5 strength symmetric through the upper and lower extremities in all groups tested. Sensory intact to light touch in all extremities. Vibratory sensation is intact and symmetric all extremities. Deep tendon reflexes are symmetric at the biceps, brachioradialis, triceps, patella, and achilles bilaterally. Coordination: No dysmetria on finger to nose. No drift seen. CATHY of pronation and supination, finger and hand tapping impaired bilaterally though improved bilaterally R>L. Toe tapping improved bilaterally. No rigidity to BUE. Resting tremor to RUE intermittently. Slight shuffle with decreased arm swing bilaterally. Unable to rise from chair without using arms. Mild stooped posture. Negative Romberg. Labs/studies: Previously Reviewed: Component Latest Ref Rng & Units 07/20/2021 Cholesterol, Total <200 mg/dL 136 Triglyceride <150 mg/dL 119 HDL Cholesterol >39 mg/dL 55 Non HDL Cholesterol <130 mg/dL 81 Fasting Time hrs 14 VLDL Cholesterol <30 mg/dL 24 TC:HDL Ratio <5.10 2.47 LDL Cholesterol <100 mg/dL 57 LDL:HDL Ratio <2.54 1.04 Hemoglobin A1C 4.3 - 5.6 % 7.0 (H) Estimated Average Glucose mg/dL 154 MRI Brain 06/20/21: IMPRESSION: No acute intracranial abnormality. Likely chronic lacunar infarcts in the left basal ganglia, moderate presumed chronic microvascular ischemic changes in the white matter, and generalized volume loss, as detailed. MRI Lumbar Spine 06/20/21: Reverse S-shaped scoliosis of the thoracolumbar spine, leftward apex in the lower thoracic spine atapproximately T10-11, rightward apex at approximately L2-3. Multilevel spondylotic changes in the lumbar spine as detailed, noting mild to moderate canal narrowing at L3-4. Varying degrees of foraminal narrowing, noting moderate right foraminal narrowing at L4-5. Additional details as above. Anatomic Thoracic/Lumbar Variant: None. L4-5 is considered the level of the iliac crest and assume there are 5 lumbar-type vertebrae. Assessment/Plan: G20 Parkinson's disease (HCC) (primary encounter diagnosis) R26.81 Gait instability F03.90 Dementia without behavioral disturbance, unspecified dementia type (HCC) R44.1 Visual hallucinations Comment: Patient previously presenting to office for tremor with history and exam suggestive of PD vs Parkinson plus (given hallucinations and dementia) vs drug induced parkinsonism (given use of Risperdal). MRI of brain noting generalized volume loss and moderate chronic microvascular ischemic changes. Given findings on imaging, concern for possible vascular component as well as Parkinson plus verses idiopathic PD. She is currently taking Sinemet 1.5mg TID. No tremors noted on exam. However, when discussing if improvement of symptoms with increase in Sinemet dose pt is uncertain and only notes worsening of lumbar pain. Her states he believes hallucinations have improved and she has only had a few brief few seconds episodes since time of last appointment. Will continue Sinemet as previously prescribed until patient is able to schedule appointment with spine medicine for improvement of lumbar symptoms. She also continues to take Namenda 10mg BID for memory concerns. Modified MOCA today with score of 15/24. Still frequently watching television and again encouraged completion of word puzzles and physical activity within limitations. Recommend continuing physical therapy for stability and balance aswell as to gain mobility to further participate in physical activities for brain health. M54.50 Midline low back pain without sciatica, unspecified chronicity R32, R15.9 Bowel and bladder incontinence M54.50 Lumbar pain Comment: Pt's main concern at time of appointment today is low back pain. She does also note a history of bowel and bladder incontinence. MRI lumbar spine from 2021 noting mild to moderate changes. Consult placed to physical therapy at time of previous appointment, however, pt only able to attend one session per month and has not been completing HEP. Discussed importance of completing exercises at home. Also, given persistent pain which, on exam, appears to greatly interfere with ability to ambulate, will place consult to spine medicine for further evaluation and interventions. Z86.73 History of stroke E11.9 Type 2 diabetes mellitus without complication, without long-term current use of insulin ([facility]) Comment: Chronic L basal ganglia infarcts on previous MRI. She has been taking ASA 81mg regularly. Continues to take statin. No new stroke symptoms since time of previous appointment. Continue to follow with PCP for BG, BP, and cholesterol management. Goals remain BP <140/90 and BG <140. Office Visit on 12/12/21 CONSULT TO [facility] Asiya John APRN.HECTOR I spent a total of 45 minutes on the date of the service which included preparing to see the patient, [id number] patient care, completing clinical documentation, obtaining and/or reviewing separately obtained history, performing a medically appropriate examination, counseling and educating the pat ient/family/caregiver, and ordering medications, tests, or procedures. documented in this encounterGu[facility]07-29-2022 Miscellaneous Notes* Telephone Encounter - Diana Leos Pss - 11/15/2021 12:26 PM EDT FYI Received fax from [facility]. The patient's insurance hasn't approved and the patient is aware. documented in this encounterGuernsey [facility] Hospital07-26-2022 Miscellaneous Notes* Telephone Encounter - Lai Turcios MD - 11/12/2021 8:44 PM EDT Noted. The following approved medication requests have been transmitted electronically. Signed Prescriptions Disp Refills oxybutynin ER (DITROPAN XL) 15 mg 24 hr Extended Rel Tab 30 tablet 5 Sig: Take 1 tablet by mouth daily at bedtime. STU: No Authorizing Provider: LAI TURCIOS MD * Telephone Encounter - Elizabeth Reyes RN - 11/12/2021 1:21 PM EDT reports [facility] is still giving patient the 10 mg ditropan. Needs new Rx sent for the 15 mg. Pended. Notice several medications are pended for [facility] adherence pharm, but not sent. Discussed with . reports Maria was trying to get the pill paks from [facility], but they did not qualify, so all of patients meds need to be sent to [facility]. States the only one he needs right now is the ditropan. Last ov with pcp: 09-23-21. documented in this encounterGuernsey [facility]06-28-2022 Miscellaneous Notes* Telephone Encounter - Diana Leos Pss - 10/15/2021 8:51 AM EDT Received home care order by fax from [facility]. Placed form in provider's in box for signature. documented in this encounterGuernsey [facility] Hospital06-15-2022 Miscellaneous Notes* Telephone Encounter - Luma Hernandez RN - 10/02/2021 7:06 PM EDT Left message for patient's that scripts werecsent to [facility] and call back with any questions. Luma Hernandez RN * Telephone Encounter - Lai Turcios MD - 10/02/2021 6:54 PM EDT Not sure how long for adherence packets to get to them either so sent 30 day supply The following approved medication requests have been transmitted electronically. Signed Prescriptions Disp Refills carbidopa-levodopa (SINEMET 25-100) 25-100 mg per tablet 135 tablet 0 Sig: Take 1.5 tablets by mouth every morning AND 1.5 tablets every afternoon AND 1.5 tablets every evening. (8AM, Noon, 4PM).. STU: No Authorizing Provider: LAI TURCIOS LORazepam (ATIVAN) 0.5 mg 60 tablet 0 Sig: Take 2 tablets by mouth daily at bedtime for 30 days. DAMON Class: C-IV STU: No Authorizing Provider: LAI TURCIOS glipiZIDE (GLUCOTROL XL) 2.5 mg 24 hr tablet 30 tablet 0 Sig: Take 1 tablet by mouth daily with breakfast. STU: No Authorizing Provider: LAI TURCIOS MD * Telephone Encounter - Teagan Figueroa RN - 10/02/2021 10:02 AM EDT Patient has been identified by name and date of : Yes Spouse phones for refill(s): Pending Prescriptions Disp Refills CARBIDOPA 25 MG-LEVODOPA 100 MG TABLET Sig: Take 1.5 tablets by mouth every morning AND 1.5 tablets every afternoon AND 1.5 tablets every evening. (8AM, Noon, 4PM).. STU: No LORAZEPAM 0.5 MG TABLET Sig: Take 2 tablets by mouth daily at bedtime for 90 days. DAMON Class: C-IV STU: No GLIPIZIDE ER 2.5 MG TABLET, EXTENDED RELEASE 24 HR Sig: Take 1 tablet by mouth daily with breakfast. STU: No calls to report that patient is completely out of above medications and not certain of [facility] Adherence delivery date. asking for short supply of medication me sent to [facility] until he can get it figured out. Phone number to [facility] Adherence given to to contact as well. concerned patient has already missed on dose of carbidopa-levodopa. Date of last office visit with pcp: 09/23/2021 Future appt: none Last 2 Encounter Wt Readings: Date: Wt: 09/23/2021 69.4 kg (153 lb) 08/22/2021 72.1 kg (159 lb) Previous labs/tests for medication: Blood Pressure: BUN (mg/dL) Date Value 02/04/2016 Test sent to [facility]. Sodium (mmol/L) Date Value 02/04/2016 Test sent to [facility]. Last 1 Encounter BP Readings: Date: BP: 09/23/2021 102/60 Liver Function: ALT (U/L) Date Value 10/05/2015 Test sent to [facility]. AST (U/L) Date Value 10/05/2015 Test sent to [facility]. Please advise. Thank you. Teagan Figueroa RN documented in this encounterGuernsey [facility] Hospital06-14-2022 Miscellaneous Notes* Telephone Encounter - LAN Pérez - 10/01/2021 4:13 PM EDT Order for Rollator printed and faxed to [facility] at [phone] per patients request. LAN Pérez * Telephone Encounter - Edie Velez RN - 10/01/2021 4:04 PM EDT Patient's calling and asking if script for Rollator can be printed and faxed over to [facility] [phone]. Edie Velez RN documented in this encounterGu[facility]06-13-2022 Miscellaneous Notes* Telephone Encounter - Lai Turcios MD - 09/30/2021 8:49 AM EDT The following approved medication requests have been transmitted electronically. Signed Prescriptions Disp Refills aspirin, enteric coated (ECOTRIN LOW STRENGTH) 81 mg EC tablet 30 tablet 5 Sig: Take 1 tablet by mouth once daily. STU: No Authorizing Provider: LAI TURCIOS carbidopa-levodopa (SINEMET 25-100) 25-100 mg per tablet 135 tablet 5 Sig: Take 1.5 tablets by mouth three times daily. (8AM, Noon, 4PM). STU: No Authorizing Provider: LAI TURCISO glipiZIDE (GLUCOTROL XL) 2.5 mg 24 hr tablet 30 tablet 5 Sig: Take 1 tablet by mouth daily with breakfast. STU: No Authorizing Provider: LAI TURCIOS levothyroxine (SYNTHROID) 50 mcg tablet 30 tablet 5 Sig: Take 1 tablet by mouth once daily. STU: No Authorizing Provider: LAI TURCIOS LORazepam (ATIVAN) 0.5 mg 60 tablet 2 Sig: Take 2 tablets by mouth daily at bedtime for 90 days. DAMON Class: C-IV STU: No Authorizing Provider: LAI TURCIOS memantine (NAMENDA) 10 mg tablet 60 tablet 5 Sig: Take 1 tablet by mouth twice daily. STU: No Authorizing Provider: LAI TURCIOS losartan (COZAAR) 50 mg tablet 30 tablet 5 Sig: Take 1 tablet by mouth once daily. STU: No Authorizing Provider: LAI TURCIOS metFORMIN (GLUCOPHAGE) 500 mg tablet 120 tablet 5 Sig: Take 2 tablets by mouth twice daily with meals. STU: No Authorizing Provider: LAI TURCIOS metoprolol tartrate, short acting, (LOPRESSOR) 25 mg tablet 60 tablet 5 Sig: Take 1 tablet by mouth twice daily. STU: No Authorizing Provider: LAI TURCIOS oxybutynin ER (DITROPAN XL) 15 mg 24 hr Extended Rel Tab 30 tablet 5 Sig: Take 1 tablet by mouth daily at bedtime. STU: No Authorizing Provider: LAI TURCIOS risperiDONE (RISPERDAL) 0.5 mg tablet 60 tablet 5 Sig: Take 1 tablet by mouth twice daily. STU: No Authorizing Provider: LAI TURCIOS simvastatin (ZOCOR) 20 mg tablet 30 tablet 5 Sig: Take 1 tablet by mouth daily at bedtime. STU: No Authorizing Provider: LAI TURCIOS MD * Telephone Encounter - Maria Short [facility] - 09/27/2021 2:40 PM EDT Patient would benefit from adherence packaging so patient's does not have to fill pillbox. Switching medications to [facility] adherence packaging. Pending orders for PCP below. Please review and approve as you find appropriate. Pending Prescriptions Disp Refills ASPIRIN 81 MG TABLET,DELAYED RELEASE 30 tablet 5 Sig: Take 1 tablet by mouth once daily. STU: No CARBIDOPA 25 MG-LEVODOPA 100 MG TABLET 135 tablet 5 Sig: Take 1.5 tablets by mouth three times daily. (8AM, Noon, 4PM). STU: No GLIPIZIDE ER 2.5 MG TABLET, EXTENDED RELEASE 24 HR 30 tablet 5 Sig: Take 1 tablet by mouth daily with breakfast. STU: No LEVOTHYROXINE 50 MCG TABLET 30 tablet 5 Sig: Take 1 tablet by mouth once daily. STU: No LORAZEPAM 0.5 MG TABLET 60 tablet 2 Sig: Take 2 tablets by mouth daily at bedtime. DAMON Class: C-IV STU: No MEMANTINE 10 MG TABLET 60 tablet 5 Sig: Take 1 tablet by mouth twice daily. STU: No LOSARTAN 50 MG TABLET 30 tablet 5 Sig: Take 1 tablet by mouth once daily. STU: No METFORMIN 500 MG TABLET 120 tablet 5 Sig: Take 2 tablets by mouth twice daily with meals. STU: No METOPROLOL TARTRATE 25 MG TABLET 60 tablet 5 Sig: Take 1 tablet by mouth twice daily. STU: No OXYBUTYNIN CHLORIDE ER 15 MG TABLET,EXTENDED RELEASE 24 HR 30 tablet 5 Sig: Take 1 tablet by mouth daily at bedtime. STU: No RISPERIDONE 0.5 MG TABLET 60 tablet 5 Sig: Take 1 tablet by mouth twice daily. STU: No SIMVASTATIN 20 MG TABLET 30 tablet 5 Sig: Take 1 tablet by mouth daily at bedtime. STU: No Maria Short PharmD, BCACP Primary Care Clinical Pharmacist [facility] * Telephone Encounter - Maria Short RPh - 09/25/2021 4:45 PM EDT Patient was scheduled for pharmacy visit today however patient's checked in for the appointment without patient present. brings in medication bottles and asks to review of medications and to discuss adherence packaging. ALLERGIES Allergen Reactions Lisinopril Cough Medication List Medication Directions Comments Action/Plan Discontinued: 09/23/2021 5:44 PM aspirin, enteric coated (ECOTRIN LOW STRENGTH) 81 mg EC tablet Take 1 tablet by mouth once daily. Taking as directed Discontinued: 09/23/2021 5:43 PM Discontinued: 09/23/2021 5:38 PM carbidopa-levodopa (SINEMET 25-100) 25-100 mg per tablet Take 1.5 tablets by mouth three times daily. (8AM, Noon, 4PM). Taking as directed Discontinued: 09/23/2021 5:39 PM Discontinued: 09/23/2021 5:39 PM Discontinued: 09/23/2021 5:39 PM Discontinued: 09/23/2021 5:39 PM glipiZIDE (GLUCOTROL XL) 2.5 mg 24 hr tablet Take 2.5 mg by mouth. Taking as directed once daily with breakfast Discontinued: 09/23/2021 5:39 PM Discontinued: 09/23/2021 5:45 PM levothyroxine (SYNTHROID) 50 mcg tablet Take 1 tablet by mouth once daily. Taking as directed LORazepam (ATIVAN) 0.5 mg tab Take 2 tablets by mouth daily at bedtime. Taking as directed losartan (COZAAR) 50 mg tablet Take 1 tablet by mouth once daily. Taking as directed memantine (NAMENDA) 10 mg tablet Take 10 mg by mouth twice daily. Taking as directed metFORMIN (GLUCOPHAGE) 500 mg tablet Take 2 tablets by mouth twice daily with meals. Taking as directed metoprolol tartrate, short acting, (LOPRESSOR) 25 mg tablet Take 1 tablet by mouth twice daily. Taking as directed Discontinued: 09/23/2021 5:37 PM oxybutynin ER (DITROPAN XL) 15 mg 24 hr Extended Rel Tab Take 1 tablet by mouth daily at bedtime. Taking as directed Discontinued: 09/23/2021 5:42 PM Discontinued: 09/23/2021 5:40 PM Discontinued: 09/23/2021 5:51 PM polyethylene glycol 3350 (MIRALAX, GLYCOLAX) 17 gram/dose powder Will try taking Thursday and Fridays. Can increase dose as discussed. risperiDONE (RISPERDAL) 0.5 mg tablet Take 0.5 mg by mouth twice daily. Taking as directed simvastatin (ZOCOR) 20 mg tablet Take 1 tablet by mouth daily at bedtime. Taking as directed Discontinued: 09/23/2021 5:40 PM WALKER ROLLATOR SEAT WITH 6 WHEELS - RED Rollator Patient not taking: Reported on 09/23/2021 LABS Lab Results Component Value Date HBA1C 7.0 07/20/2021 HBA1C 6.0 08/22/2019 HBA1C 6.5 07/30/2016 HBA1C 6.5 02/04/2016 HBA1C Test sent to [facility]. 02/04/2016 HBA1C Test sent to [facility]. 10/05/2015 CMP: Glucose Value: Test sent to [facility]. 02/04/2016 BUN Value: Test sent to [facility]. 02/04/2016 Creatinine Value: Test sent to [facility]. 02/04/2016 Sodium Value: Test sent to [facility]. 02/04/2016 Potassium Value: Test sent to [facility]. 02/04/2016 Albumin Value: Test sent to [facility]. 10/05/2015 Calcium Value: Test sent to [facility]. 02/04/2016 AST Value: Test sent to [facility]. 10/05/2015 ALT Value: Test sent to [facility]. 10/05/2015 Lab Results Component Value Date CHOL 136 07/20/2021 CHOL Test sent to [facility]. 10/05/2015 LDL 57 07/20/2021 LDL Test sent to [facility]. 10/05/2015 HDL 55 07/20/2021 HDL Test sent to [facility]. 10/05/2015 TG 119 07/20/2021 TG Test sent to [facility]. 10/05/2015 Albumin/Creat Ratio (mg/g) Date Value 07/30/2016 17 ASSESSMENT ASSESSMENT/PLAN: 1. Medication management - ICD9: V58.69, ICD10: Z79.899 Reviewed name, strength, route, frequency and time of administration of medications. Medication list updated as described in above medication chart. Continue medications as previously prescribed Pharmacist will coordinate with Dr. Turcios to send orders to the pharmacy for chronic medicationsto be placed in adherence packaging packs Contact [facility] to coordinate transition to adherence packaging Phone number: [phone] Check on cost comparison of memantine since current covering this medication with goodrx card Maria Short, PharmD, BCACP Primary Care Clinical Pharmacist [facility] documented in this encounterGuernsey [facility] Hospital06-09-2022 Miscellaneous Notes* Telephone Encounter - LAN Pérez - 09/26/2021 1:19 PM EDT TC to Indira from [facility] PT who verbalizes understanding of providers message below. Indira has no questions at this time. LAN Pérez * Telephone Encounter - Asiya John APRN.HECTOR - 09/25/2021 5:18 PM EDT If any concerns for AMS or focal neurological deficits would recommend ED evaluation. Per records pt on ASA but no other anticoagulants. If any concern for bleeding, again would recommend ED evaluation. * Telephone Encounter - Shirley Fitzgerald LPN - 09/25/2021 3:38 PM EDT Indira PT from [facility] calling to report she is at pt's home, when pt came to answer the door she fellbackwards. Pt told Indira that she hit the right side of her face lightly. Indira reports she sees no bruising or ybarra on pt however she has only been with her X 20 mins. Pt is currently doing exercises with PT. Indira requesting this message be sent to pcp & Rosalba. Shirley Fitzgerald LPN documented in this encounterGuernsey [facility] Hospital06-07-2022 Miscellaneous Notes* Telephone Encounter - Shyla Hayes RN - 09/24/2021 1:28 PM EDT Chela with [facility] calling to review patient's current medication list for home health purposes. Medications reviewed. Shyla Hayes RN documented in this encounterGuernsey Memorial Hospital06-06-2022 Instructions* Patient Instructions* Lai Turcios MD - 09/23/2021 5:26 PM EDT May take the Miralax twice weekly on Thursday and or Thursday and Thursday. Consider lower dose daily if whole scoop causes incontinence. May consider adding Metamucil and take same days as Miralax or alternate days. Labs sometime soon then again before 6 month follow up. documented in this encounterGuernsey Memorial Hospital06-06-2022 History of Present illness Narrative* Lai Turcios MD - 09/23/2021 5:19 PM EDT This note was created using [employer]My[employer]. Subjective Silva Garcia is a 76 year old female. HISTORY Silva Garcia is a 76 year old lady here to be formally established with me. Transferring care from Back hurting--main thing. Lower back. Had in-home PT come today for first appointment. Given exercises to do. Will come twice a week. Is weak and cannot walk any distance. Uses walker. PT got order from neurologist Has had back pain for a long time. Had Xrays and MRIs. No specific treatment given. MRI brain also done. Has issues with incontinence. Wears depends. Trying oxybutynin and not helping much. Fecal incontinence as well. 2 accidents so far. Can get constipation as well. Goes back and forth between constipation and diarrhea. Not taking Thursday and as was instructed; before was every other day. Has not been checking sugars. Sleeps well in recliner. 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 oxybutynin ER (DITROPAN XL) 15 mg 24 hr Extended Rel Tab Take 1 tablet by mouth daily at bedtime. carbidopa-levodopa (SINEMET 25-100) 25-100 mg per tablet Take 1.5 tablets by mouth three times daily. (8AM, Noon, 4PM). risperiDONE (RISPERDAL) 0.5 mg tablet Take 0.5 mg by mouth twice daily. memantine (NAMENDA) 10 mg tablet Take 10 mg by mouth twice daily. levothyroxine (SYNTHROID) 50 mcg tablet Take 1 tablet by mouth once daily. losartan (COZAAR) 50 mg tablet Take 1 tablet by mouth once daily. LORazepam (ATIVAN) 0.5 mg tab Take 2 tablets by mouth daily at bedtime. simvastatin (ZOCOR) 20 mg tablet Take 1 tablet by mouth daily at bedtime. metFORMIN (GLUCOPHAGE) 500 mg tablet Take 2 tablets by mouth twice daily with meals. metoprolol tartrate, short acting, (LOPRESSOR) 25 mg tablet Take 1 tablet by mouth twice daily. aspirin, enteric coated (ECOTRIN LOW STRENGTH) 81 mg EC tablet Take 1 tablet by mouth once daily. polyethylene glycol 3350 (MIRALAX, GLYCOLAX) 17 gram/dose powder Will try taking Thursday and Fridays. Can increase dose as discussed. WALKER ROLLATOR SEAT WITH 6 WHEELS - RED Rollator (Patient not taking: Reported on 09/23/2021 ) No current facility-administered medications for this visit. 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) FAMILY HISTORY Problem Relation Age of Onset Cataract Mother Cataract Other Genetic Sister essential tremor Genetic Mother Parkinson Genetic Maternal Uncle esential tremor other (Other [Other]) Sister Parkinson's Disease Social History Tobacco Use Smoking status: Former Smoker Quit date: 09/13/2005 Years since quittin.0 Smokeless tobacco: Never Used Substance Use Topics Alcohol use: Yes Comment: Very Little Drug use: Not on file Review of Systems Objective BP 102/60 Pulse 93 Ht 152.4 cm (5') Wt 69.4 kg (153 lb) SpO2 96% BMI 29.88 kg/m Last 5 Encounter Wt Readings: Date: Wt: 09/23/2021 69.4 kg (153 lb) 08/22/2021 72.1 kg (159 lb) 07/11/2021 68.9 kg (152 lb) 05/31/2021 66.2 kg (146 lb) 07/30/2016 83.9 kg (185 lb) No waist measurement recorded Estimated body mass index is 29.88 kg/m as calculated from the following: Height as of this encounter: 152.4 cm (5'). Weight as of this encounter: 69.4 kg (153 lb). Last 5 Encounter BP Readings: Date: BP: 09/23/2021 102/60 08/22/2021 128/82 07/11/2021 122/78 05/31/2021 132/82 07/30/2016 118/66 Physical Exam Vitals reviewed. Constitutional: Appearance: She is well-developed. HENT: Head: Normocephalic and atraumatic. Right Ear: External ear normal. Left Ear: External ear normal. Nose: Nose normal. Eyes: Conjunctiva/sclera: Conjunctivae normal. Neck: Thyroid: No thyromegaly. Cardiovascular: Rate and Rhythm: Normal rate and regular rhythm. Pulses: Normal pulses. Heart sounds: Normal heart sounds. No murmur heard. No friction rub. No gallop. Pulmonary: Effort: Pulmonary effort is normal. Breath sounds: Normal breath sounds. Abdominal: General: Bowel sounds are normal. There is no distension. Palpations: Abdomen is soft. There is no mass. Tenderness: There is no abdominal tenderness. Musculoskeletal: General: No deformity. Normal range of motion. Lymphadenopathy: Cervical: No cervical adenopathy. Skin: General: Skin is warm and dry. Coloration: Skin is not jaundiced or pale. Findings: No rash. Neurological: General: No focal deficit present. Mental Status: She is alert and oriented to person, place, and time. Cranial Nerves: No cranial nerve deficit. Sensory: No sensory deficit. Motor: Tremor present. No abnormal muscle tone or seizure activity. DATE OF EXAM: Jun 20 2021 3:42PM [facility] 0303 - MRI LUMBAR SPINE WO IVCON / PROCEDURE REASON: Midline low back pain without sciatica, unspecified chronicity * * * * Physician Interpretation * * * * EXAMINATION: MRI LUMBAR SPINE WO IVCON CLINICAL HISTORY: Midline low back pain without sciatica, unspecified chronicity TECHNIQUE: Routine lumbosacral spine MR protocol without gadolinium. MQ: [id number] COMPARISON: Lumbar spine radiographs 06/10/2010. RESULT: Counting reference: Lumbosacral junction. For the purposes of this report, L4-5 is considered the level of the iliac crest and assume there are 5 lumbar-type vertebrae. Anatomic variant: None. Localizer images: Left renal cyst. Alignment: Reverse S-shaped scoliosis of the thoracolumbar spine, with leftward apex in the lower thoracic spine at approximately T10-11, rightward apex at approximately L2-3. Slight stepwise retrolisthesis of L2 on L3 and L3 on L4. Multilevel loss of disc height and disc degeneration, most pronounced at L1-2 and L2-3. Bone marrow signal/fracture: Fatty degenerative marrow end plate changes about L1-2 and L2-3 levels. Trace edematous endplate changes about the the L3-4 level. No evidence of pathologic marrow infiltration. No evidence of prior fracture. Conus: The conus is within normal limits of signal intensity and morphology. Paraspinal soft tissues: See above. Mild asymmetry of the psoas muscles, likely related to the scoliosis. Paraspinal soft tissues are otherwise maintained. Lower thoracic spine: At T10-11, mild disc bulge and facet arthropathy with likely ligamentum flavum thickening results in mild canal narrowing and mild right and minimal left foraminal narrowing. At T11-12, mild disc bulge facet arthropathy with mild canal narrowing. Foramina are patent. T12-L1: Mild disc bulge. Canal and foramina remain patent. L1-L2: Diffuse disc bulge eccentric to left, with osteophytic spurring. Bilateral facet arthropathy. Mild canal narrowing. Foramina are patent. L2-L3: Moderate diffuse disc bulge with osteophytic spurring. Bilateral facet arthropathy. Mild canal narrowing. Mild left foraminal narrowing. Right foramen is essentially patent. L3-L4: Moderate diffuse disc bulge. Bilateral facet arthropathy with ligamentum flavum thickening, and small 3 mm left-sided synovial cyst protruding into the spinal canal. Mild to moderate canal narrowing. Bilateral subarticular recess effacement, with likely contact of the traversing nerve roots bilaterally. Mild bilateral foraminal narrowing. L4-L5: Moderate diffuse disc bulge, eccentric to the right. Bilateral facet arthropathy, with trace effusion on the left. There is also small amount of fluid projecting medial to the right facet joint, may reflect a small crescentic 6 mm synovial cyst slightly protruding into the posterior aspect of the canal. Overall mild canal narrowing. Right worse than left subarticular recess narrowing, with contact of the traversing right more than left nerve roots. Mild left and moderate right foraminal narrowing. L5-S1: Mild disc bulge. Bilateral facet arthropathy with small effusion on the left. Spinal canal remains patent. Facet arthropathy minimally encroaches upon the bilateral foramina, right greater than left, however otherwise foramina remain patent. Sacrum and iliac wings: The visualized sacrum and iliac wings are within normal limits. Component Latest Ref Rng & Units 07/30/2016 07/20/2021 Cholesterol, Total <200 mg/dL 136 Triglyceride <150 mg/dL 119 HDL Cholesterol >39 mg/dL 55 Non HDL Cholesterol <130 mg/dL 81 Fasting Time hrs 14 VLDL Cholesterol <30 mg/dL 24 TC:HDL Ratio <5.10 2.47 LDL Cholesterol <100 mg/dL 57 LDL:HDL Ratio <2.54 1.04 Creatinine, Ur Random (UCRR) 20 - 300 mg/dL 145.7 Albumin, Urine Random 0.0 - 23.0 mg/L 24.8 (H) Albumin/Creat Ratio 0 - 30 mg/g 17 Hemoglobin A1C 4.3 - 5.6 % 6.5 (H) 7.0 (H) Estimated Average Glucose mg/dL 140 154 Hep C Antibody IA Negative Negative Noted November 2020 labs --CMP and CBC. Assessment and Plan Encounter Diagnosis ICD-10-CM 1. Type 2 diabetes mellitus without complication, without long-term current use of insulin ([facility]) E11.9 HGB A1C COMP METABOLIC PANEL CBC LIPID PANEL BASIC ALBUMIN/CREAT RATIO RND UR CONSULT TO PHARMACY 2. Parkinson's disease ([facility]) G20 CONSULT TO PHARMACY 3. Hearing loss of left ear, unspecified hearing loss type H91.92 After a virus about 15 to 20 years ago. 4. Chronic low back pain without sciatica, unspecified back pain laterality M54.50 G89.29 5. DDD (degenerative disc disease), lumbar M51.36 6. Facet arthropathy, lumbar M47.816 7. Dementia without behavioral disturbance, unspecified dementia type (HCC) F03.90 CONSULT TO PHARMACY 8. Acquired hypothyroidism E03.9 CONSULT TO PHARMACY ASSESSMENT/PLAN: 1. Type 2 diabetes mellitus without complication, without long-term current use of insulin (HCC) - ICD9: 250.00, ICD10: E11.9 (primary diagnosis) Controlled. - Continue current medications - Work with Pharm D on DM meds given cost and also goals to treat DM and get weight down. Further evaluation and treatment as indicated. - HGB A1C - COMP METABOLIC PANEL - CBC - LIPID PANEL BASIC - ALBUMIN/CREAT RATIO RND UR - CONSULT TO PHARMACY 2. Parkinson's disease (HCC) - ICD9: 332.0, ICD10: G20 Not sure how to get all her meds in; work with Pharm D on getting meds in packets or bubble packs to help her and with managing all her meds - CONSULT TO PHARMACY 3. Hearing loss of left ear, unspecified hearing loss type - ICD9: 389.9, ICD10: H91.92 Doing fine. 4. Chronic low back pain without sciatica, unspecified back pain laterality - ICD9: 724.2, 338.29, ICD10: M54.50, G89.29 Discussed MRI. Further evaluation and treatment as indicated. 5. DDD (degenerative disc disease), lumbar - ICD9: 722.52, ICD10: M51.36 Continue present management. Further evaluation and treatment as indicated. 6. Facet arthropathy, lumbar - ICD9: 721.3, ICD10: M47.816 Continue present management. Further evaluation and treatment as indicated. 7. Dementia without behavioral disturbance, unspecified dementia type (HCC) - ICD9: 294.20, ICD10: F03.90 As noted above. Stay on current meds. Further evaluation and treatment as indicated. - CONSULT TO PHARMACY 8. Acquired hypothyroidism - ICD9: 244.9, ICD10: E03.9 Update labs at some point. Further evaluation and treatment as indicated. - CONSULT TO PHARMACY Lai Turcios MD documented in this encounterGuernsey Memorial Hospital06-02-2022 Miscellaneous Notes* Telephone Encounter - LAN Pérez - 09/19/2021 11:57 AM EDT TC to Angela from [facility] to give verbal order for delay of start for PT. Angela verbalizes understanding with no questions at this time. LAN Pérez * Telephone Encounter - Asiya John APRN.HECTOR - 09/18/2021 6:50 PM EDT Ok to start home physical therapy on 09/23/21. * Telephone Encounter - Elizabeth Reyes RN - 09/18/2021 4:14 PM EDT Angela- [facility]- reports PT is available to see patient, but cannot see patient until September 23. Needs verbal approval from Asiya for delay of start of care. Please phone Angela with verbal. documented in this encounterGuernsey Memorial Hospital05-31-2022 Miscellaneous Notes* Telephone Encounter - Diana Leos Pss - 09/17/2021 3:28 PM EDT Orders were faxed to [facility]. Completed on another encounter. * Telephone Encounter - LAZARA Mars - 09/17/2021 11:12 AM EDT Thank you for the referral of your patient to [facility]. At this time, we are at capacity and are unable to accept your patient. In order to help your patient receive quality home care, we have included reputable agencies that service this area: [facility] [phone] or [facility] [phone]. Please contact this agency and they will work with your patient to arrange timely services. Thank you, LAZARA Mars 09/17/2021 11:12 AM documented in this encounterGuernsey Memorial Hospital05-31-2022 Miscellaneous Notes* Telephone Encounter - Diana Leos Pss - 09/17/2021 12:13 PM EDT Printed Home Health & Walker orders, and office notes. Spoke with Chela at [facility] to confirm fax number. Per her request fax was sent to [phone]. * Telephone Encounter - Evette Molina RN - 09/17/2021 9:09 AM EDT Ally WHITLEY from [facility] [phone] completed eval on patient Calling for a new order for patient to have home PT services. This would be better option for the patient an family Patient is homebound, And is not able to come in for outpatient services except for once a month. New Order would be needed. Please fax order to [phone] [facility]. Patient also needs a new RX for a Rolator. documented in this encounterGuernsey Memorial Hospital05-05-2022 History of Present illness Narrative* Asiya John APRN.PRODUCT SAFETY ENGINEER - 08/22/2021 3:30 PM EDT Images from the original note were not included. [facility] [place] Follow-up Visit Follow-up note August 22, 2021 HPI: Ms. Garcia presents today for a follow-up visit. Per her previous visit on 07/11/21: G20 Parkinson's disease (HCC) (primary encounter diagnosis) R26.81 Gait instability F03.90 Dementia without behavioral disturbance, unspecified dementia type (HCC) R44.1 Visual hallucinations Comment: Patient previously presenting to office for tremor with history and exam suggestive of PD vs Parkinson plus (given hallucinations and dementia) vs drug induced parkinsonism (given use of Risperdal). Also, given gait changes, urinary incontinence, and dementia, concern for possible NPH as well. For further evaluation, MRI of brain completed. Per report, degree of ventriculomegaly corresponds to degree of volume loss. Mild to moderate generalized volume loss present as well as moderate degree of chronic microvascular ischemic changes. Given findings on imaging, consider possible vascular component as well as Parkinson plus verses idiopathic PD. Sinemet previously adjusted to determine if improvement in symptoms and patient currently taking 25-100mg at 8am, noon, and 4pm. Pt's reports improvement in tremor, though still present. Gaithas improved as well, though still with some balance concerns. At this time will increase Sinemet dose to 1.5 tablets 25-100mg TID to determine if further improvement in symptoms. Also currently taking Namenda 10mg BID for memory with SE or concerns. Patient reports that she frequently completes mental exercises with some improvement in memory. Recommend continuing to complete mentally stimulating activities for brain exercise (i.e. crossword puzzles, social interactions...) as well as regular physical exercise within patient limitations. For improvement in balance and gait stability, consultplaced to physical therapy. M54.50 Midline low back pain without sciatica, unspecified chronicity R32, R15.9 Bowel and bladder incontinence Comment: Patient with history of low back pain as well as bowel and bladder incontinence. Since previous appointment she notes no further bowel concerns. MRI of lumbar spine completed with finding ofmild to moderate narrowing at L3-4. Reviewed findings and patient agreeable to begin physical therapy as noted above. Z86.73 History of stroke E11.69 Type 2 diabetes mellitus with other specified complication, without long- term current use ofinsulin (HCC) Comment: MRI of brain noting chronic L basal ganglia infarcts. Pt had previously been taking ASA 81mg but has since discontinued medication. Will have her restart ASA. Currently taking simvastatin for hld. Will also place order for A1C and lipid panel as last levels available are from 08/2019. Recommendations for stroke prevention include goal BP <140/90 and BS <140. Since the end of June she has been feeling ok and everything has been the same. Feels like back pain is a little bit less than before. Not sure what has led to improvement. When walking she will walk stooped over. Was unable to go to physical therapy due to cost. State they would be able to go once per month at the end of the month. Will be following with [facility]. Can get tired if walking too much. Not doing any exercise at home except getting up to go the bathroom and back. Not using a walker or a cane. Denies falls. Denies urinary or bowel changes. States there is still shaking to R hand though minimal in office. Feels like increase in dose may have led to minor changes in symptoms. Currently taking medication at 8am, 12pm, and 4pm. Her husbandstates sometimes she doesn't wake up until later and the medication will get pushed back. She states memory has been pretty good. Denies forgetting people familiar to her. Her helpswith medications. Not cooking but she does clean up around the house. Has not been doing word puzzles at home. Denies hallucinations. Denies yelling out in sleep, abnormal movements. Has not fallen out of the recliner. Denies difficulty using utensils when eating. Some difficulty zipping zipper on coat. Denies weakness to one arm or one leg, n/t, speech changes, vision changes, headaches. Still takingcholesterol medication but did not start ASA. Had follow up with PCP and was restarted on glimepiride for elevated A1C. In September she will be switching PCP's and will be following with [facility]. Orientation: August, , 2021 [place] MOCA 08/22/21 Visuospatial/exec (5-5) did not do dots, incorrect clock hands and cube (2/4) Naming (0-3) (3/3) Memory Words, up to 2 trials: Face, Velvet, Cheondoism, Timoteo, Red (no points) 4/5 first try, 5/5 second try Attention forwards: 2 1 8 5 4 (0-1) (04/20) Attention backwards: 7 4 2 (0-1) (04/20) Serial subtraction by 7: [id number] (3 points for correct 4 or 5; 2 points for 2 or 3 correct; 1 point for 1 correct) [id number]- (04/22) Language: repeat: I only know that Toi is the one to help today (0-1) (04/20) Language: repeat: The cat always hid under the couch when dogs were in the room (0-1) (1/1) Fluency: max words beginning with the letter F (1 point if 11 or more words) lll (0/1) Abstraction: practice banana-orange=fruit. 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 carbidopa-levodopa (SINEMET) 25-100 mg per tablet Take 1.5 tablets by mouth three times daily. (8AM, Noon, 4PM). risperiDONE (RISPERDAL) 0.5 mg tablet Take 0.5 mg by mouth twice daily. oxybutynin ER (DITROPAN XL) 10 mg 24 hr tablet Take 10 mg by mouth daily at bedtime. memantine (NAMENDA) 10 mg tablet Take 10 mg by mouth twice daily. levothyroxine (SYNTHROID) 50 mcg tablet Take 1 tablet by mouth once daily. pioglitazone (ACTOS) 15 mg tablet Take 1 tablet by mouth once daily. TAKE 1 TABLET BY MOUTH ONCE DAILY IN THE MORNING (Patient not taking: Reported on 05/31/2021 ) losartan (COZAAR) 50 mg tablet Take 1 tablet by mouth once daily. Lancets lancets 1 Each twice daily. Dx: E11.9 Insulin: no (Patient not taking: Reported on 05/31/2021 ) LORazepam (ATIVAN) 0.5 mg tab Take 2 tablets by mouth daily at bedtime. PARoxetine (PAXIL) 20 mg tablet Take 1 tablet by mouth once daily. (Patient not taking: Reported on05/31/2021 ) sulfamethoxazole-trimethoprim (BACTRIM DS) 800-160 mg per tablet Take 1 tablet by mouth once daily.(Patient not taking: Reported on 05/31/2021 ) Halobetasol Propionate (ULTRAVATE) 0.05 % cream Apply to affected area twice daily. Per Dr Romero (Patient not taking: Reported on 05/31/2021 ) simvastatin (ZOCOR) 20 mg tablet Take 1 tablet by mouth daily at bedtime. metFORMIN (GLUCOPHAGE) 500 mg tablet Take 2 tablets by mouth twice daily with meals. CICLOPIROX TOPICAL Apply to affected area daily at bedtime. (Patient not taking: Reported on 05/31/2021 ) cholecalciferol (VITAMIN D3) 1,000 unit tab tablet Take 1 tablet by mouth once daily. (Patient not taking: Reported on 05/31/2021 ) glimepiride (AMARYL) 4 mg tablet Take 1 tablet by mouth daily with breakfast. (Patient not taking: Reported on 05/31/2021 ) blood sugar diagnostic (CONTOUR TEST STRIPS) test strip Test blood sugar(s) 2 times daily. Dx: Type2 DM - Controlled E11.9 Insulin: No (Patient not taking: Reported on 05/31/2021 ) metoprolol tartrate, short acting, (LOPRESSOR) 25 mg tablet Take 1 tablet by mouth twice daily. cetirizine (ZYRTEC) 10 mg tablet Take 1 tablet by mouth once daily. (Patient not taking: Reported on 05/31/2021 ) Blood-Glucose Meter (CONTOUR METER) monitoring kit Dispense 1 kit. Dx: Type 2 DM - Controlled E11.9Test 2 times daily (Patient not taking: Reported on 05/31/2021 ) Aspirin 81 mg Tab Take 1 tablet by mouth once daily. Take with food. (Patient not taking: Reported on 05/31/2021 ) No current facility-administered medications on file prior to visit. Social History Tobacco Use Smoking status: Former Smoker Quit date: 09/13/2005 Years since quittin.9 Smokeless tobacco: Never Used Substance Use Topics Alcohol use: Yes Comment: Very Little Drug use: Not on file ALLERGIES Allergen Reactions Lisinopril Cough Review of Systems: Cardiopulmonary: denies chest pain Respiratory: denies shortness of breath GI/: denies recent nausea, vomiting, diarrhea, constipation, + incontinence Musculoskeletal: denies + weakness Back/spine: denies + low back, mid back, or cervical pains Neuro: Denies + tremors, loss of feeling, dizziness, seizure, blackout, paresthesia, facial paresthesia, facial weakness, difficulty in speech, slurring of words, dysarthria, dysphagia, + memory loss, headache, vision changes, loss of hearing Physical Exam: 08/22/21 1529 BP: 128/82 Pulse: 78 Resp: 18 Temp: 37.3 C (99.2 F) SpO2: 97% Weight: 72.1 kg (159 lb) Patient is alert and in no distress. Dress is appropriate. Mood is appropriate Breathing appears regular and unstressed Neurologic examination: MOCA above. CN: Pupils equal and reactive to light, extraocular movements intact with no nystagmus with exception of inability for R eye to track in and up, face is symmetric with no facial droop (not currently wearing dentures and mild left facial weakness-per pt and this is baseline), facial sensation intact bilaterally to light touch V1-3, hearing decreased on L, symmetric elevation of the soft palate, tongue is midline with no deviation, shoulder shrug is symmetric. Motor exam shows 5/5 strength symmetric through the upper and lower extremities in all groups tested. Sensory intact to light touch in all extremities. Vibratory sensation is intact and symmetric all extremities. Deep tendon reflexes are symmetric at the biceps, brachioradialis, triceps, patella, and achilles bilaterally. Coordination: No dysmetria on finger to nose. No drift seen. CATHY of pronation and supination, finger and hand tapping impaired bilaterally though improved bilaterally R>L. Toe tapping improved bilaterally. No rigidity to BUE. Resting tremor to RUE. Worsens with ambulation. Slight shuffle with decreased arm swing bilaterally. Rises from chair well. Mild stooped posture. No retropulsion on pull test. Negative Romberg. Labs/studies: Component Latest Ref Rng & Units 07/20/2021 Cholesterol, Total <200 mg/dL 136 Triglyceride <150 mg/dL 119 HDL Cholesterol >39 mg/dL 55 Non HDL Cholesterol <130 mg/dL 81 Fasting Time hrs 14 VLDL Cholesterol <30 mg/dL 24 TC:HDL Ratio <5.10 2.47 LDL Cholesterol <100 mg/dL 57 LDL:HDL Ratio <2.54 1.04 Hemoglobin A1C 4.3 - 5.6 % 7.0 (H) Estimated Average Glucose mg/dL 154 Previously Reviewed: MRI Brain 06/20/21: IMPRESSION: No acute intracranial abnormality. Likely chronic lacunar infarcts in the left basal ganglia, moderate presumed chronic microvascular ischemic changes in the white matter, and generalized volume loss, as detailed. MRI Lumbar Spine 06/20/21: Reverse S-shaped scoliosis of the thoracolumbar spine, leftward apex in the lower thoracic spine atapproximately T10-11, rightward apex at approximately L2-3. Multilevel spondylotic changes in the lumbar spine as detailed, noting mild to moderate canal narrowing at L3-4. Varying degrees of foraminal narrowing, noting moderate right foraminal narrowing at L4-5. Additional details as above. Anatomic Thoracic/Lumbar Variant: None. L4-5 is considered the level of the iliac crest and assume there are 5 lumbar-type vertebrae. Assessment/Plan: G20 Parkinson's disease (HCC) (primary encounter diagnosis) R26.81 Gait instability F03.90 Dementia without behavioral disturbance, unspecified dementia type (HCC) R44.1 Visual hallucinations Comment: Patient previously presenting to office for tremor with history and exam suggestive of PD vs Parkinson plus (given hallucinations and dementia) vs drug induced parkinsonism (given use of Risperdal). MRI of brain noting generalized volume loss and moderate chronic microvascular ischemic changes. Given findings on imaging, concern for possible vascular component as well as Parkinson plus verses idiopathic PD. For improvement of symptoms she was started on Sinemet 25-100mg which led to improvement in tremor and improvement in gait, though mild symptoms still present. Therefore, Sinemet was increased to 1.5tablets TID at time of previous appointment and today she notes possible further improvement. Will continue current Sinemet dose of 1.5 tablets TID. Also remains on Namenda 10mg BID for memory concerns. MOCA completed today with score of 22/28. She reports that she has not been completing word puzzles or participating in any physical activity at home. Recommend continuing to complete mentally stimulating activities for brain exercise (i.e. crossword puzzles, social interactions...) as well as re gular physical exercise within patient limitations. Again reviewed importance of physical therapy for gait stability and balance and pt and agreeable to schedule. M54.50 Midline low back pain without sciatica, unspecified chronicity R32, R15.9 Bowel and bladder incontinence Comment: Previously reporting low back pain as well as bowel and bladder incontinence. No further changes in bowel or bladder. Today she does report some improvement of pain. Consult previously placed to physical therapy, however, she has not yet gone. She will schedule after appointment today. Also discussed consult to spine medicine, however, she would like to hold off at this time. Z86.73 History of stroke E11.9 Type 2 diabetes mellitus without complication, without long-term current use of insulin (HCC) Comment: Chronic L basal ganglia infarcts on previous MRI. Instructed to restart ASA at previous appointment, however, she has not yet done so. Will begin ASA 81mg after appointment today. Remains onsimvastatin. In interim, A1C completed and noted to elevated. She has since had follow up with PCP and medication was adjusted. No stroke symptoms reported since previous appointment. Goals remain BP<140/90 and BS <140. Asiya John APRN.HECTOR I spent a total of 45 minutes on the date of the service which included preparing to see the patient, [id number] patient care, completing clinical documentation, obtaining and/or reviewing separately obtained history, performing a medically appropriate examination and counseling and educating the patient/family/caregiver. documented [facility] this [facility] Miscellaneous Notes* Telephone Encounter - Pamella Hodges LPN - 08/01/2021 4:38 PM EDT Message left on voicemail to call office for update. Pamella Hodges LPN * Telephone Encounter - Bernadine Gaston LPN - 07/30/2021 10:56 AM EDT Patient Jeet calling he has to cancel Physical Therapy at [facility] due to co pay is to expensive for them. documented in this encounterGu[facility]04-06-2022 Miscellaneous Notes* Telephone Encounter - Luma Hernandez RN - 07/24/2021 1:25 PM EDT Spoke with patient's . Given message from provider's office. Patient's verbalizes understanding. Luma Hernandez RN * Telephone Encounter - Ally Lloyd MA - 07/23/2021 10:18 AM EDT I attempted to call patient with her results. No answer, left a message on her voicemail to please give us a call back so we could go over her results. Ally Lloyd MA * Telephone Encounter - Ally Lloyd MA - 07/23/2021 10:18 AM EDT ----- Message from Asiya John APRN.PRODUCT SAFETY ENGINEER sent at 07/22/2021 11:21 AM EDT ----- A1c elevated at 7.0. Please have patient follow up with her PCP to determine if any further changesto medications are needed. LDL (bad cholesterol) is very good at 57. Continue simvastatin as previously prescribed. documented in this [facility]Gu[facility]03-28-2022 Miscellaneous Notes* Telephone Encounter - Pamella Hodges LPN - 07/15/2021 5:18 PM EDT Message left on patient's EC voicemail as requested. [facility] L[facility] * Telephone Encounter - Edie Velez RN - 07/15/2021 10:44 AM EDT Patient's calls and states that they cannot go up to [place]. Please fax orders [facility]. Please give a call when this is faxed. states to leave message. Please review and advise, Edie Velez RN * Telephone Encounter - Pamella Hodges LPN - 07/12/2021 10:17 AM EDT Patient will need to go to [place] to have Physical Therapy, Not Able to here in [place] due to Parkinson's diagnosis. If patient not willing to drive out of town, ask if [facility] is where pt wanting to go? Message left on voicemail to call office. Pamella Hodges LPN documented in this encounterGuernsey [facility]03-24-2022 History of Present illness Narrative* Asiya John APRN.HECTOR - 07/11/2021 3:30 PM EDT Images from the original note were not included. [facility] [place] Follow-up Visit Follow-up note July 11, 2021 HPI: Ms. Garcia presents today for a follow-up visit. Per her previous visit with Dr. Alvarez on 05/31/21: ASSESSMENT/PLAN: 1. Parkinson's disease (HCC) - ICD9: 332.0, ICD10: G20 (primary diagnosis) Patient with history and exam suggestive of PD vs PD+ syndrome vs med induced PD. She has been on antipsychotic type medications in the past including current use of Risperdal that could result in decreases in Dopamine, which in turn could result in PD symptoms. In addition, given history of hallucinations and dementia also need to be concerned for disorder such as LBD (PD+). Too early to state that patient is not responsive to DOPA at this time, with patient only taking 2 tabs a day and uncertain as to when she is taking these (possibly bedtime). To better evaluate whether symptoms respond to Sinemet, will adjust dosing such that patient will take 25/100mg at 8AM, Noon and 4PM. Again, thisis to monitor for any improvement of symptoms. May need for further increase dose at time of next visit. In addition to Parkinson related disorder, given magnetic gait and bladder incontinence as well as dementia, need to determine if in fact PD like symptoms may actually represent underlying NPH (does fulfill [facility] by history). Thus will further evaluate with MRI brain. Encouraged exercise, and in future (they do not feel they can do now in the winter weather), will refer to PT for Stop the Disease program. 2. Dementia without behavioral disturbance, unspecified dementia type (HCC) - ICD9: 294.20, ICD10: F03.90 Unclear etiology. Again LBD vs secondary to PD vs pseudodementia vs secondary to meds. Will evaluate for cerebral atrophy by means of MRI brain. Will continue Namenda 10mg BID for now as pt has been on and tolerating. No additional changes to meds at this time. Prior thyroid and B12 labs per reports unremarkable. Encouraged brain exercises. 3. Visual hallucinations - ICD9: 368.16, ICD10: R44.1 See #1 and #2 above. Currently stable. 4. Midline low back pain without sciatica, unspecified chronicity - ICD9: 724.2, ICD10: M54.50 5. Bowel and bladder incontinence - ICD9: 788.30, 787.60, ICD10: R32, R15.9 Back pain with bowel and bladder incontinence. No weakness on lower ext exam, but feel appropriate to image L spine to determine if lumbar/sacral disease could be contributing to symptoms (cauda equina). Pt will follow up once above testing completed. Since her previous visit she states her low back has been feeling a little better. She has not noted any significant weakness to her legs. She sits often and does not get much exercise. She has not completed physical therapy recently. Not using a walker or a cane at home. No falls. Some difficulty with balance. Recently prescribed Miralax. No recent episodes where she has not been able to make itto bathroom. Using depends for urinary concerns. Initially pt reports no improvement in tremor since taking Sinemet. Tremor only present in R hand. Her does note that tremors may have improved as prior to appt her leg and arm were shaking and now only her hand. Currently taking Sinemet TID. Currently taking it in the morning, noon, and 4pm. States no difference in ability to walk though her feels like walking has improved and she is walking fast. Not currently having hallucinations. No recent hallucinations. Does not correlate with timing of initiation or cessation of any medications. Unsure if she has ever yelled out in her sleep. Has never fallen out of the recliner when sleeping. Feels like her memory has improved since her last visit. She tries to work on memory daily. Does not do words puzzles or read. Typically watches tv all day. States she aims to go outside this summer. Some difficulty with fine motor coordination. Difficulty with zipper on her coat. No difficulty using utensils. No side effects from medication. Her states that her mother and cousin both had a tremor. Not currently taking ASA 81mg. Had taken it in the past but has since stopped. Has gotten blood work completed since 2019 though outside [facility]. Reviewed images from both MRI of brain and MRI of lumbar spine together with pt and . 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 oxybutynin ER (DITROPAN XL) 10 mg 24 hr tablet Take 10 mg by mouth daily at bedtime. memantine (NAMENDA) 10 mg tablet Take 10 mg by mouth twice daily. levothyroxine (SYNTHROID) 50 mcg tablet Take 1 tablet by mouth once daily. carbidopa-levodopa (SINEMET) 25-100 mg per tablet Take 1 tablet by mouth three times daily. (8AM, Noon, 4PM). pioglitazone (ACTOS) 15 mg tablet Take 1 tablet by mouth once daily. TAKE 1 TABLET BY MOUTH ONCE DAILY IN THE MORNING (Patient not taking: Reported on 05/31/2021 ) losartan (COZAAR) 50 mg tablet Take 1 tablet by mouth once daily. Lancets lancets 1 Each twice daily. Dx: E11.9 Insulin: no (Patient not taking: Reported on 05/31/2021 ) LORazepam (ATIVAN) 0.5 mg tab Take 2 tablets by mouth daily at bedtime. PARoxetine (PAXIL) 20 mg tablet Take 1 tablet by mouth once daily. (Patient not taking: Reported on05/31/2021 ) sulfamethoxazole-trimethoprim (BACTRIM DS) 800-160 mg per tablet Take 1 tablet by mouth once daily.(Patient not taking: Reported on 05/31/2021 ) Halobetasol Propionate (ULTRAVATE) 0.05 % cream Apply to affected area twice daily. Per Dr Romero (Patient not taking: Reported on 05/31/2021 ) simvastatin (ZOCOR) 20 mg tablet Take 1 tablet by mouth daily at bedtime. metFORMIN (GLUCOPHAGE) 500 mg tablet Take 2 tablets by mouth twice daily with meals. CICLOPIROX TOPICAL Apply to affected area daily at bedtime. (Patient not taking: Reported on 05/31/2021 ) cholecalciferol (VITAMIN D3) 1,000 unit tab tablet Take 1 tablet by mouth once daily. (Patient not taking: Reported on 05/31/2021 ) glimepiride (AMARYL) 4 mg tablet Take 1 tablet by mouth daily with breakfast. (Patient not taking: Reported on 05/31/2021 ) blood sugar diagnostic (CONTOUR TEST STRIPS) test strip Test blood sugar(s) 2 times daily. Dx: Type2 DM - Controlled E11.9 Insulin: No (Patient not taking: Reported on 05/31/2021 ) metoprolol tartrate, short acting, (LOPRESSOR) 25 mg tablet Take 1 tablet by mouth twice daily. cetirizine (ZYRTEC) 10 mg tablet Take 1 tablet by mouth once daily. (Patient not taking: Reported on 05/31/2021 ) Blood-Glucose Meter (CONTOUR METER) monitoring kit Dispense 1 kit. Dx: Type 2 DM - Controlled E11.9Test 2 times daily (Patient not taking: Reported on 05/31/2021 ) Aspirin 81 mg Tab Take 1 tablet by mouth once daily. Take with food. (Patient not taking: Reported on 05/31/2021 ) No current facility-administered medications on file prior to visit. Social History Tobacco Use Smoking status: Former Smoker Quit date: 09/13/2005 Years since quittin.8 Smokeless tobacco: Never Used Substance Use Topics Alcohol use: Yes Comment: Very Little Drug use: Not on file ALLERGIES Allergen Reactions Lisinopril Cough Review of Systems: Cardiopulmonary: denies chest pain Respiratory: denies shortness of breath GI/: denies recent nausea, vomiting, diarrhea, constipation, + incontinence Musculoskeletal: denies + weakness Back/spine: denies + low back, mid back, or cervical pains Neuro: Denies + tremors, loss of feeling, dizziness, seizure, blackout, paresthesia, facial paresthesia, facial weakness, difficulty in speech, slurring of words, dysarthria, dysphagia, + memory loss, headache, vision changes, loss of hearing Physical Exam: 07/11/21 1512 BP: 122/78 Pulse: 74 Resp: 18 Temp: 37.2 C (99 F) SpO2: 98% Weight: 68.9 kg (152 lb) Patient is alert and in no distress. Dress is appropriate. Mood is appropriate Breathing appears regular and unstressed Neurologic examination: Cognitively intact. No deficits. No formal MMSE performed. CN: Pupils equal and reactive to light, extraocular movements intact with no nystagmus with exception of inability for R eye to track in and up, face is symmetric with no facial droop, facial sensation intact bilaterally to light touch V1-3, hearing decreased on L, symmetric evaluation of the soft palate, tongue is midline with no deviation, shoulder shrug is symmetric. Motor exam shows 5/5 strength symmetric through the upper and lower extremities in all groups tested. Sensory intact to light touch in all extremities. Vibratory sensation is intact and symmetric all extremities. Deep tendon reflexes are symmetric at the biceps, brachioradialis, triceps, patella, and achilles bilaterally. Coordination: No dysmetria on finger to nose. No drift seen. CATHY of pronation and supination, finger and hand tapping impaired bilaterally. Toe tapping impairedbilaterally. No rigidity to BUE. Resting tremor to RUE. Worsens with ambulation. Slight shuffle with decreased arm swing bilaterally. Rises from chair well. Mild stooped posture. No retropulsion on pull test. Negative Romberg. Labs/studies: MRI Brain 06/20/21: IMPRESSION: No acute intracranial abnormality. Likely chronic lacunar infarcts in the left basal ganglia, moderate presumed chronic microvascular ischemic changes in the white matter, and generalized volume loss, as detailed. MRI Lumbar Spine 06/20/21: Reverse S-shaped scoliosis of the thoracolumbar spine, leftward apex in the lower thoracic spine atapproximately T10-11, rightward apex at approximately L2-3. Multilevel spondylotic changes in the lumbar spine as detailed, noting mild to moderate canal narrowing at L3-4. Varying degrees of foraminal narrowing, noting moderate right foraminal narrowing at L4-5. Additional details as above. Anatomic Thoracic/Lumbar Variant: None. L4-5 is considered the level of the iliac crest and assume there are 5 lumbar-type vertebrae. Assessment/Plan: G20 Parkinson's disease (HCC) (primary encounter diagnosis) R26.81 Gait instability F03.90 Dementia without behavioral disturbance, unspecified dementia type ([facility]) R44.1 Visual hallucinations Comment: Patient previously presenting to office for tremor with history and exam suggestive of PD vs Parkinson plus (given hallucinations and dementia) vs drug induced parkinsonism (given use of Risperdal). Also, given gait changes, urinary incontinence, and dementia, concern for possible NPH as well. For further evaluation, MRI of brain completed. Per report, degree of ventriculomegaly corresponds to degree of volume loss. Mild to moderate generalized volume loss present as well as moderate degree of chronic microvascular ischemic changes. Given findings on imaging, consider possible vascular component as well as Parkinson plus verses idiopathic PD. Sinemet previously adjusted to determine if improvement in symptoms and patient currently taking 25-100mg at 8am, noon, and 4pm. Pt's reports improvement in tremor, though still present. Gait has improved as well, though still with some balance concerns. At this time will increase Sinemet dose to 1.5 tablets 25-100mg TID to determine if further improvement in symptoms. Also currentlytaking Namenda 10mg BID for memory with SE or concerns. Patient reports that she frequently completes mental exercises with some improvement in memory. Recommend continuing to complete mentally stimulating activities for brain exercise (i.e. crossword puzzles, social interactions...) as well as regular physical exercise within patient limitations. For improvement in balance and gait stability, consult placed to physical therapy. M54.50 Midline low back pain without sciatica, unspecified chronicity R32, R15.9 Bowel and bladder incontinence Comment: Patient with history of low back pain as well as bowel and bladder incontinence. Since previous appointment she notes no further bowel concerns. MRI of lumbar spine completed with finding ofmild to moderate narrowing at L3-4. Reviewed findings and patient agreeable to begin physical therapy as noted above. Z86.73 History of stroke E11.69 Type 2 diabetes mellitus with other specified complication, without long- term current use ofinsulin (HCC) Comment: MRI of brain noting chronic L basal ganglia infarcts. Pt had previously been taking ASA 81mg but has since discontinued medication. Will have her restart ASA. Currently taking simvastatin for hld. Will also place order for A1C and lipid panel as last levels available are from 08/2019. Recommendations for stroke prevention include goal BP <140/90 and BS <140. Office Visit on 07/11/21 HGB A1C LIPID PANEL BASIC CONSULT TO PHYSICAL THERAPY Asiya John APRN.PRODUCT SAFETY ENGINEER I spent a total of 50 minutes on the date of the service which included preparing to see the patient, [id number] patient care, completing clinical documentation, obtaining and/or reviewing separately obtained history, performing a medically appropriate examination, counseling and educating the pat ient/family/caregiver and ordering medications, tests, or procedures. [facility] History of Past illness Narrative* Problem Noted Date Resolved Date Seborrhea 10/30/2012 07/30/2016 Sprain and strain of unspeci fied site of shoulder and upper arm 07/29/2012 07/30/2016 Pain in joint, shoulder region 07/29/2012 0 07/30/2016 Acute [place] 09/18/2011 06/06/2016 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/18 Fatigue 01/08/2010 06/06/2016 Contact dermatitis and other eczema, due to unspecified cause 07/30/2016 Esophageal reflux 07/30/2016 documented as of this encounter (statuses as of 07/14/2021) [facility] illness Narrative* Problem Noted Date Resolved Date Seborrhea 10/30/2012 07/30/2016 Sprain and strain of unspeci fied site of shoulder and upper arm 07/29/2012 07/30/2016 Pain in joint, shoulder region 07/29/2012 0 07/30/2016 Acute [place] 09/18/2011 06/06/2016 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/18 Fatigue 01/08/2010 06/06/2016 Contact dermatitis and other eczema, due to unspecified cause 07/30/2016 Esophageal reflux 07/30/2016 documented as of this encounter (statuses as of 07/15/2021) [facility] illness Narrative* Problem Noted Date Resolved Date Seborrhea 10/30/2012 07/30/2016 Sprain and strain of unspeci fied site of shoulder and upper arm 07/29/2012 07/30/2016 Pain in joint, shoulder region 07/29/2012 0 07/30/2016 Acute KS 09/18/2011 06/06/2016 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/18 Fatigue 01/08/2010 06/06/2016 Contact dermatitis and other eczema, due to unspecified cause 07/30/2016 Esophageal reflux 07/30/2016 documented as of this encounter (statuses as of 08/01/2021) [facility] illness Narrative* Problem Noted Date Resolved Date Seborrhea 10/30/2012 07/30/2016 Sprain and strain of unspeci fied site of shoulder and upper arm 07/29/2012 07/30/2016 Pain in joint, shoulder region 07/29/2012 0 07/30/2016 Acute KS 09/18/2011 06/06/2016 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/18 Fatigue 01/08/2010 06/06/2016 Contact dermatitis and other eczema, due to unspecified cause 07/30/2016 Esophageal reflux 07/30/2016 documented as of this encounter (statuses as of 08/26/2021) [facility] Narrative* Problem Noted Date Resolved Date Seborrhea 10/30/2012 07/30/2016 Sprain and strain of unspeci fied site of shoulder and upper arm 07/29/2012 07/30/2016 Pain in joint, shoulder region 07/29/2012 0 07/30/2016 Acute KS 09/18/2011 06/06/2016 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/18 Fatigue 01/08/2010 06/06/2016 Contact dermatitis and other eczema, due to unspecified cause 07/30/2016 Esophageal reflux 07/30/2016 documented as of this encounter (statuses as of 09/17/2021) [facility] Narrative* Problem Noted Date Resolved Date Seborrhea 10/30/2012 07/30/2016 Sprain and strain of unspeci fied site of shoulder and upper arm 07/29/2012 07/30/2016 Pain in joint, shoulder region 07/29/2012 0 07/30/2016 Acute KS 09/18/2011 06/06/2016 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/18 Fatigue 01/08/2010 06/06/2016 Contact dermatitis and other eczema, due to unspecified cause 07/30/2016 Esophageal reflux 07/30/2016 documented as of this encounter (statuses as of 09/17/2021) [facility] Narrative* Problem Noted Date Resolved Date Seborrhea 10/30/2012 07/30/2016 Sprain and strain of unspeci fied site of shoulder and upper arm 07/29/2012 07/30/2016 Pain in joint, shoulder region 07/29/2012 0 07/30/2016 Acute KS 09/18/2011 06/06/2016 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/18 Fatigue 01/08/2010 06/06/2016 Contact dermatitis and other eczema, due to unspecified cause 07/30/2016 Esophageal reflux 07/30/2016 documented as of this encounter (statuses as of 09/19/2021) [facility] illness Narrative* Problem Noted Date Resolved Date Seborrhea 10/30/2012 07/30/2016 Sprain and strain of unspeci fied site of shoulder and upper arm 07/29/2012 07/30/2016 Pain in joint, shoulder region 07/29/2012 0 07/30/2016 Acute KS 09/18/2011 06/06/2016 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/18 Fatigue 01/08/2010 06/06/2016 Contact dermatitis and other eczema, due to unspecified cause 07/30/2016 Esophageal reflux 07/30/2016 documented as of this encounter (statuses as of 09/24/2021) [facility] Narrative* Problem Noted Date Resolved Date Seborrhea 10/30/2012 07/30/2016 Sprain and strain of unspeci fied site of shoulder and upper arm 07/29/2012 07/30/2016 Pain in joint, shoulder region 07/29/2012 0 07/30/2016 Acute KS 09/18/2011 06/06/2016 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/18 Fatigue 01/08/2010 06/06/2016 Contact dermatitis and other eczema, due to unspecified cause 07/30/2016 Esophageal reflux 07/30/2016 documented as of this encounter (statuses as of 09/26/2021) [facility]arrative* Problem Noted Date Resolved Date Seborrhea 10/30/2012 07/30/2016 Sprain and strain of unspeci fied site of shoulder and upper arm 07/29/2012 07/30/2016 Pain in joint, shoulder region 07/29/2012 0 07/30/2016 Acute KS 09/18/2011 06/06/2016 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/18 Fatigue 01/08/2010 06/06/2016 Contact dermatitis and other eczema, due to unspecified cause 07/30/2016 Esophageal reflux 07/30/2016 documented as of this encounter (statuses as of 09/30/2021) [facility] Narrative* Problem Noted Date Resolved Date Seborrhea 10/30/2012 07/30/2016 Sprain and strain of unspeci fied site of shoulder and upper arm 07/29/2012 07/30/2016 Pain in joint, shoulder region 07/29/2012 0 07/30/2016 Acute KS 09/18/2011 06/06/2016 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/18 Fatigue 01/08/2010 06/06/2016 Contact dermatitis and other eczema, due to unspecified cause 07/30/2016 Esophageal reflux 07/30/2016 documented as of this encounter (statuses as of 09/30/2021) [facility] Narrative* Problem Noted Date Resolved Date Seborrhea 10/30/2012 07/30/2016 Sprain and strain of unspeci fied site of shoulder and upper arm 07/29/2012 07/30/2016 Pain in joint, shoulder region 07/29/2012 0 07/30/2016 Acute KS 09/18/2011 06/06/2016 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/18 Fatigue 01/08/2010 06/06/2016 Contact dermatitis and other eczema, due to unspecified cause 07/30/2016 Esophageal reflux 07/30/2016 documented as of this encounter (statuses as of 10/01/2021) [facility] Narrative* Problem Noted Date Resolved Date Seborrhea 10/30/2012 07/30/2016 Sprain and strain of unspeci fied site of shoulder and upper arm 07/29/2012 07/30/2016 Pain in joint, shoulder region 07/29/2012 0 07/30/2016 Acute KS 09/18/2011 06/06/2016 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/18 Fatigue 01/08/2010 06/06/2016 Contact dermatitis and other eczema, due to unspecified cause 07/30/2016 Esophageal reflux 07/30/2016 documented as of this encounter (statuses as of 10/02/2021) [facility]arrative* Problem Noted Date Resolved Date Seborrhea 10/30/2012 07/30/2016 Sprain and strain of unspeci fied site of shoulder and upper arm 07/29/2012 07/30/2016 Pain in joint, shoulder region 07/29/2012 0 07/30/2016 Acute KS 09/18/2011 06/06/2016 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/18 Fatigue 01/08/2010 06/06/2016 Contact dermatitis and other eczema, due to unspecified cause 07/30/2016 Esophageal reflux 07/30/2016 documented as of this encounter (statuses as of 10/15/2021) [facility] Narrative* Problem Noted Date Resolved Date Seborrhea 10/30/2012 07/30/2016 Sprain and strain of unspeci fied site of shoulder and upper arm 07/29/2012 07/30/2016 Pain in joint, shoulder region 07/29/2012 0 07/30/2016 Acute KS 09/18/2011 06/06/2016 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/18 Fatigue 01/08/2010 06/06/2016 Contact dermatitis and other eczema, due to unspecified cause 07/30/2016 Esophageal reflux 07/30/2016 documented as of this encounter (statuses as of 11/13/2021) [facility] Narrative* Problem Noted Date Resolved Date Seborrhea 10/30/2012 07/30/2016 Sprain and strain of unspeci fied site of shoulder and upper arm 07/29/2012 07/30/2016 Pain in joint, shoulder region 07/29/2012 0 07/30/2016 Acute KS 09/18/2011 06/06/2016 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/18 Fatigue 01/08/2010 06/06/2016 Contact dermatitis and other eczema, due to unspecified cause 07/30/2016 Esophageal reflux 07/30/2016 documented as of this encounter (statuses as of 11/15/2021) [facility]arrative* Problem Noted Date Resolved Date Seborrhea 10/30/2012 07/30/2016 Sprain and strain of unspeci fied site of shoulder and upper arm 07/29/2012 07/30/2016 Pain in joint, shoulder region 07/29/2012 0 07/30/2016 Acute KS 09/18/2011 06/06/2016 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/18 Fatigue 01/08/2010 06/06/2016 Contact dermatitis and other eczema, due to unspecified cause 07/30/2016 Esophageal reflux 07/30/2016 documented as of this encounter (statuses as of 12/16/2021) [facility] Narrative* Problem Noted Date Resolved Date Seborrhea 10/30/2012 07/30/2016 Sprain and strain of unspeci fied site of shoulder and upper arm 07/29/2012 07/30/2016 Pain in joint, shoulder region 07/29/2012 0 07/30/2016 Acute KS 09/18/2011 06/06/2016 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/18 Fatigue 01/08/2010 06/06/2016 Contact dermatitis and other eczema, due to unspecified cause 07/30/2016 Esophageal reflux 07/30/2016 documented as of this encounter (statuses as of 12/17/2021) [facility]arrative* Problem Noted Date Resolved Date Seborrhea 10/30/2012 07/30/2016 Sprain and strain of unspeci fied site of shoulder and upper arm 07/29/2012 07/30/2016 Pain in joint, shoulder region 07/29/2012 0 07/30/2016 Acute KS 09/18/2011 06/06/2016 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/18 Fatigue 01/08/2010 06/06/2016 Contact dermatitis and other eczema, due to unspecified cause 07/30/2016 Esophageal reflux 07/30/2016 documented as of this encounter (statuses as of 01/14/2022) [facility]* Problem Noted Date Resolved Date Seborrhea 10/30/2012 07/30/2016 Sprain and strain of unspeci fied site of shoulder and upper arm 07/29/2012 07/30/2016 Pain in joint, shoulder region 07/29/2012 0 07/30/2016 Acute KS 09/18/2011 06/06/2016 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/18 Fatigue 01/08/2010 06/06/2016 Contact dermatitis and other eczema, due to unspecified cause 07/30/2016 Esophageal reflux 07/30/2016 documented as of this encounter (statuses as of 01/16/2022) [facility]* Problem Noted Date Resolved Date Seborrhea 10/30/2012 07/30/2016 Sprain and strain of unspeci fied site of shoulder and upper arm 07/29/2012 07/30/2016 Pain in joint, shoulder region 07/29/2012 0 07/30/2016 Acute KS 09/18/2011 06/06/2016 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/18 Fatigue 01/08/2010 06/06/2016 Contact dermatitis and other eczema, due to unspecified cause 07/30/2016 Esophageal reflux 07/30/2016 documented as of this encounter (statuses as of 01/24/2022) [facility]* Problem Noted Date Resolved Date Seborrhea 10/30/2012 07/30/2016 Sprain and strain of unspeci fied site of shoulder and upper arm 07/29/2012 07/30/2016 Pain in joint, shoulder region 07/29/2012 0 07/30/2016 Acute KS 09/18/2011 06/06/2016 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/18 Fatigue 01/08/2010 06/06/2016 Contact dermatitis and other eczema, due to unspecified cause 07/30/2016 Esophageal reflux 07/30/2016 documented as of this encounter (statuses as of 01/30/2022) [facility]* Problem Noted Date Resolved Date Seborrhea 10/30/2012 07/30/2016 Sprain and strain of unspeci fied site of shoulder and upper arm 07/29/2012 07/30/2016 Pain in joint, shoulder region 07/29/2012 0 07/30/2016 Acute KS 09/18/2011 06/06/2016 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/18 Fatigue 01/08/2010 06/06/2016 Contact dermatitis and other eczema, due to unspecified cause 07/30/2016 Esophageal reflux 07/30/2016 documented as of this encounter (statuses as of 02/05/2022) [facility]* Problem Noted Date Resolved Date Seborrhea 10/30/2012 07/30/2016 Sprain and strain of unspeci fied site of shoulder and upper arm 07/29/2012 07/30/2016 Pain in joint, shoulder region 07/29/2012 0 07/30/2016 Acute KS 09/18/2011 06/06/2016 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/18 Fatigue 01/08/2010 06/06/2016 Contact dermatitis and other eczema, due to unspecified cause 07/30/2016 Esophageal reflux 07/30/2016 documented as of this encounter (statuses as of 02/10/2022) [facility]* Problem Noted Date Resolved Date Seborrhea 10/30/2012 07/30/2016 Sprain and strain of unspeci fied site of shoulder and upper arm 07/29/2012 07/30/2016 Pain in joint, shoulder region 07/29/2012 0 07/30/2016 Acute KS 09/18/2011 06/06/2016 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/18 Fatigue 01/08/2010 06/06/2016 Contact dermatitis and other eczema, due to unspecified cause 07/30/2016 Esophageal reflux 07/30/2016 documented as of this encounter (statuses as of 02/11/2022) [facility]* Problem Noted Date Resolved Date Seborrhea 10/30/2012 07/30/2016 Sprain and strain of unspeci fied site of shoulder and upper arm 07/29/2012 07/30/2016 Pain in joint, shoulder region 07/29/2012 0 07/30/2016 Acute KS 09/18/2011 06/06/2016 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/18 Fatigue 01/08/2010 06/06/2016 Contact dermatitis and other eczema, due to unspecified cause 07/30/2016 Esophageal reflux 07/30/2016 documented as of this encounter (statuses as of 02/17/2022) [facility]* Problem Noted Date Resolved Date Seborrhea 10/30/2012 07/30/2016 Sprain and strain of unspeci fied site of shoulder and upper arm 07/29/2012 07/30/2016 Pain in joint, shoulder region 07/29/2012 0 07/30/2016 Acute KS 09/18/2011 06/06/2016 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/18 Fatigue 01/08/2010 06/06/2016 Contact dermatitis and other eczema, due to unspecified cause 07/30/2016 Esophageal reflux 07/30/2016 documented as of this encounter (statuses as of 03/04/2022) [facility]arrative* Problem Noted Date Resolved Date Seborrhea 10/30/2012 07/30/2016 Sprain and strain of unspeci fied site of shoulder and upper arm 07/29/2012 07/30/2016 Pain in joint, shoulder region 07/29/2012 0 07/30/2016 Acute KS 09/18/2011 06/06/2016 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/18 Fatigue 01/08/2010 06/06/2016 Contact dermatitis and other eczema, due to unspecified cause 07/30/2016 Esophageal reflux 07/30/2016 documented as of this encounter (statuses as of 03/11/2022) [facility]* Problem Noted Date Resolved Date Seborrhea 10/30/2012 07/30/2016 Sprain and strain of unspeci fied site of shoulder and upper arm 07/29/2012 07/30/2016 Pain in joint, shoulder region 07/29/2012 0 07/30/2016 Acute KS 09/18/2011 06/06/2016 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/18 Fatigue 01/08/2010 06/06/2016 Contact dermatitis and other eczema, due to unspecified cause 07/30/2016 Esophageal reflux 07/30/2016 documented as of this encounter (statuses as of 04/07/2022) [facility]ative* Problem Noted Date Resolved Date Seborrhea 10/30/2012 07/30/2016 Sprain and strain of unspeci fied site of shoulder and upper arm 07/29/2012 07/30/2016 Pain in joint, shoulder region 07/29/2012 0 07/30/2016 Acute KS 09/18/2011 06/06/2016 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/18 Fatigue 01/08/2010 06/06/2016 Contact dermatitis and other eczema, due to unspecified cause 07/30/2016 Esophageal reflux 07/30/2016 documented as of this encounter (statuses as of 04/28/2022) [facility]ative* Problem Noted Date Resolved Date Seborrhea 10/30/2012 07/30/2016 Sprain and strain of unspeci fied site of shoulder and upper arm 07/29/2012 07/30/2016 Pain in joint, shoulder region 07/29/2012 0 07/30/2016 Acute KS 09/18/2011 06/06/2016 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/18 Fatigue 01/08/2010 06/06/2016 Contact dermatitis and other eczema, due to unspecified cause 07/30/2016 Esophageal reflux 07/30/2016 documented as of this encounter (statuses as of 04/29/2022) [facility]* Problem Noted Date Resolved Date Seborrhea 10/30/2012 07/30/2016 Sprain and strain of unspeci fied site of shoulder and upper arm 07/29/2012 07/30/2016 Pain in joint, shoulder region 07/29/2012 0 07/30/2016 Acute KS 09/18/2011 06/06/2016 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/18 Fatigue 01/08/2010 06/06/2016 Contact dermatitis and other eczema, due to unspecified cause 07/30/2016 Esophageal reflux 07/30/2016 documented as of this encounter (statuses as of 04/30/2022) [facility] History of Past illness Narrative* Problem Noted Date Resolved Date Seborrhea 10/30/2012 07/30/2016 Sprain and strain of unspeci fied site of shoulder and upper arm 07/29/2012 07/30/2016 Pain in joint, shoulder region 07/29/2012 0 07/30/2016 Acute [place] 09/18/2011 06/06/2016 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/18 Fatigue 01/08/2010 06/06/2016 Contact dermatitis and other eczema, due to unspecified cause 07/30/2016 Esophageal reflux 07/30/2016 documented as of this encounter (statuses as of 05/16/2022) [facility] History of Past illness Narrative* Problem Noted Date Resolved Date Seborrhea 10/30/2012 07/30/2016 Sprain and strain of unspeci fied site of shoulder and upper arm 07/29/2012 07/30/2016 Pain in joint, shoulder region 07/29/2012 0 07/30/2016 Acute [place] 09/18/2011 06/06/2016 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/18 Fatigue 01/08/2010 06/06/2016 Contact dermatitis and other eczema, due to unspecified cause 07/30/2016 Esophageal reflux 07/30/2016 documented as of this encounter (statuses as of 05/26/2022) [facility] History of Past illness Narrative* Problem Noted Date Resolved Date Seborrhea 10/30/2012 07/30/2016 Sprain and strain of unspeci fied site of shoulder and upper arm 07/29/2012 07/30/2016 Pain in joint, shoulder region 07/29/2012 0 07/30/2016 Acute [place] 09/18/2011 06/06/2016 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/18 Fatigue 01/08/2010 06/06/2016 Contact dermatitis and other eczema, due to unspecified cause 07/30/2016 Esophageal reflux 07/30/2016 documented as of this encounter (statuses as of 06/05/2022) [facility] History of Past illness Narrative* Problem Noted Date Resolved Date Seborrhea 10/30/2012 07/30/2016 Sprain and strain of unspeci fied site of shoulder and upper arm 07/29/2012 07/30/2016 Pain in joint, shoulder region 07/29/2012 0 07/30/2016 Acute [place] 09/18/2011 06/06/2016 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/18 Fatigue 01/08/2010 06/06/2016 Contact dermatitis and other eczema, due to unspecified cause 07/30/2016 Esophageal reflux 07/30/2016 documented as of this encounter (statuses as of 06/09/2022) [facility] History of Past illness Narrative* Problem Noted Date Resolved Date Seborrhea 10/30/2012 07/30/2016 Sprain and strain of unspeci fied site of shoulder and upper arm 07/29/2012 07/30/2016 Pain in joint, shoulder region 07/29/2012 0 07/30/2016 Acute KS 09/18/2011 06/06/2016 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/18 Fatigue 01/08/2010 06/06/2016 Contact dermatitis and other eczema, due to unspecified cause 07/30/2016 Esophageal reflux 07/30/2016 documented as of this encounter (statuses as of 06/13/2022) [facility] History of Past illness Narrative* Problem Noted Date Resolved Date Seborrhea 10/30/2012 07/30/2016 Sprain and strain of unspeci fied site of shoulder and upper arm 07/29/2012 07/30/2016 Pain in joint, shoulder region 07/29/2012 0 07/30/2016 Acute KS 09/18/2011 06/06/2016 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/18 Fatigue 01/08/2010 06/06/2016 Contact dermatitis and other eczema, due to unspecified cause 07/30/2016 Esophageal reflux 07/30/2016 documented as of this encounter (statuses as of 06/13/2022) [facility] History of Past illness Narrative* Problem Noted Date Resolved Date Seborrhea 10/30/2012 07/30/2016 Sprain and strain of unspeci fied site of shoulder and upper arm 07/29/2012 07/30/2016 Pain in joint, shoulder region 07/29/2012 0 07/30/2016 Acute KS 09/18/2011 06/06/2016 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/18 Fatigue 01/08/2010 06/06/2016 Contact dermatitis and other eczema, due to unspecified cause 07/30/2016 Esophageal reflux 07/30/2016 documented as of this encounter (statuses as of 06/17/2022) [facility] History of Past illness Narrative* Problem Noted Date Resolved Date Seborrhea 10/30/2012 07/30/2016 Sprain and strain of unspeci fied site of shoulder and upper arm 07/29/2012 07/30/2016 Pain in joint, shoulder region 07/29/2012 0 07/30/2016 Acute KS 09/18/2011 06/06/2016 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/18 Fatigue 01/08/2010 06/06/2016 Contact dermatitis and other eczema, due to unspecified cause 07/30/2016 Esophageal reflux 07/30/2016 documented as of this encounter (statuses as of 06/17/2022) [facility] History of Past illness Narrative* Problem Noted Date Resolved Date Seborrhea 10/30/2012 07/30/2016 Sprain and strain of unspeci fied site of shoulder and upper arm 07/29/2012 07/30/2016 Pain in joint, shoulder region 07/29/2012 0 07/30/2016 Acute KS 09/18/2011 06/06/2016 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/18 Fatigue 01/08/2010 06/06/2016 Contact dermatitis and other eczema, due to unspecified cause 07/30/2016 Esophageal reflux 07/30/2016 documented as of this encounter (statuses as of 07/16/2022) [facility] History of Past illness Narrative* Problem Noted Date Resolved Date Seborrhea 10/30/2012 07/30/2016 Sprain and strain of unspeci fied site of shoulder and upper arm 07/29/2012 07/30/2016 Pain in joint, shoulder region 07/29/2012 0 07/30/2016 Acute KS 09/18/2011 06/06/2016 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/18 Fatigue 01/08/2010 06/06/2016 Contact dermatitis and other eczema, due to unspecified cause 07/30/2016 Esophageal reflux 07/30/2016 documented as of this encounter (statuses as of 08/05/2022) [facility] History of Past illness Narrative* Problem Noted Date Resolved Date Seborrhea 10/30/2012 07/30/2016 Sprain and strain of unspeci fied site of shoulder and upper arm 07/29/2012 07/30/2016 Pain in joint, shoulder region 07/29/2012 0 07/30/2016 Acute KS 09/18/2011 06/06/2016 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/18 Fatigue 01/08/2010 06/06/2016 Contact dermatitis and other eczema, due to unspecified cause 07/30/2016 Esophageal reflux 07/30/2016 documented as of this encounter (statuses as of 08/15/2022) [facility] History of Past illness Narrative* Problem Noted Date Resolved Date Seborrhea 10/30/2012 07/30/2016 Sprain and strain of unspeci fied site of shoulder and upper arm 07/29/2012 07/30/2016 Pain in joint, shoulder region 07/29/2012 0 07/30/2016 Acute KS 09/18/2011 06/06/2016 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/18 Fatigue 01/08/2010 06/06/2016 Contact dermatitis and other eczema, due to unspecified cause 07/30/2016 Esophageal reflux 07/30/2016 documented as of this encounter (statuses as of 08/25/2022) [facility] History of Past illness Narrative* Problem Noted Date Resolved Date Seborrhea 10/30/2012 07/30/2016 Sprain and strain of unspeci fied site of shoulder and upper arm 07/29/2012 07/30/2016 Pain in joint, shoulder region 07/29/2012 0 07/30/2016 Acute KS 09/18/2011 06/06/2016 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/18 Fatigue 01/08/2010 06/06/2016 Contact dermatitis and other eczema, due to unspecified cause 07/30/2016 Esophageal reflux 07/30/2016 documented as of this encounter (statuses as of 10/08/2022) [facility] History of Past illness Narrative* Problem Noted Date Resolved Date Seborrhea 10/30/2012 07/30/2016 Sprain and strain of unspeci fied site of shoulder and upper arm 07/29/2012 07/30/2016 Pain in joint, shoulder region 07/29/2012 0 07/30/2016 Acute KS 09/18/2011 06/06/2016 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/18 Fatigue 01/08/2010 06/06/2016 Contact dermatitis and other eczema, due to unspecified cause 07/30/2016 Esophageal reflux 07/30/2016 documented as of this encounter (statuses as of 10/15/2022) [facility] History of Past illness Narrative* Problem Noted Date Resolved Date Seborrhea 10/30/2012 07/30/2016 Sprain and strain of unspeci fied site of shoulder and upper arm 07/29/2012 07/30/2016 Pain in joint, shoulder region 07/29/2012 0 07/30/2016 Acute KS 09/18/2011 06/06/2016 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/18 Fatigue 01/08/2010 06/06/2016 Contact dermatitis and other eczema, due to unspecified cause 07/30/2016 Esophageal reflux 07/30/2016 documented as of this encounter (statuses as of 10/16/2022) [facility] History of Past illness Narrative* Problem Noted Date Resolved Date Seborrhea 10/30/2012 07/30/2016 Sprain and strain of unspeci fied site of shoulder and upper arm 07/29/2012 07/30/2016 Pain in joint, shoulder region 07/29/2012 0 07/30/2016 Acute KS 09/18/2011 06/06/2016 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/18 Fatigue 01/08/2010 06/06/2016 Contact dermatitis and other eczema, due to unspecified cause 07/30/2016 Esophageal reflux 07/30/2016 documented as of this encounter (statuses as of 10/20/2022) [facility] History of Past illness Narrative* Problem Noted Date Resolved Date Seborrhea 10/30/2012 07/30/2016 Sprain and strain of unspeci fied site of shoulder and upper arm 07/29/2012 07/30/2016 Pain in joint, shoulder region 07/29/2012 0 07/30/2016 Acute KS 09/18/2011 06/06/2016 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/18 Fatigue 01/08/2010 06/06/2016 Contact dermatitis and other eczema, due to unspecified cause 07/30/2016 Esophageal reflux 07/30/2016 documented as of this encounter (statuses as of 10/23/2022) [facility] History of Past illness Narrative* Problem Noted Date Diagnosed Date Resolved Date Seborrhea 10/30/2012 07/30/2016 Sprain and strain of unspeci fied site of shoulder and upper arm 07/29/2012 07/30/2016 Pain in joint, shoulder region 07/29/2012 07/30/2016 Acute KS 09/18/2011 06/06/2016 DM w/o Complication Type II 01/08/2010 02/05/2015 Fatigue 01/08/2010 06/06/2016 Contact dermatitis and other eczema, due to unspecified cause 07/30/2016 Esophageal reflux 07/30/2016 documented as of this encounter (statuses as of 10/28/2022) [facility] History of Past illness Narrative* Problem Noted Date Diagnosed Date Resolved Date Seborrhea 10/30/2012 07/30/2016 Sprain and strain of unspeci fied site of shoulder and upper arm 07/29/2012 07/30/2016 Pain in joint, shoulder region 07/29/2012 07/30/2016 Acute KS 09/18/2011 06/06/2016 DM w/o Complication Type II 01/08/2010 02/05/2015 Fatigue 01/08/2010 06/06/2016 Contact dermatitis and other eczema, due to unspecified cause 07/30/2016 Esophageal reflux 07/30/2016 documented as of this encounter (statuses as of 11/24/2022) [facility] History of Past illness Narrative* Problem Noted Date Diagnosed Date Resolved Date Seborrhea 10/30/2012 07/30/2016 Sprain and strain of unspeci fied site of shoulder and upper arm 07/29/2012 07/30/2016 Pain in joint, shoulder region 07/29/2012 07/30/2016 Acute KS 09/18/2011 06/06/2016 DM w/o Complication Type II 01/08/2010 02/05/2015 Fatigue 01/08/2010 06/06/2016 Contact dermatitis and other eczema, due to unspecified cause 07/30/2016 Esophageal reflux 07/30/2016 documented as of this encounter (statuses as of 11/28/2022) [facility] History of Past illness Narrative* Problem Noted Date Diagnosed Date Resolved Date Seborrhea 10/30/2012 07/30/2016 Sprain and strain of unspeci fied site of shoulder and upper arm 07/29/2012 07/30/2016 Pain in joint, shoulder region 07/29/2012 07/30/2016 Acute KS 09/18/2011 06/06/2016 DM w/o Complication Type II 01/08/2010 02/05/2015 Fatigue 01/08/2010 06/06/2016 Contact dermatitis and other eczema, due to unspecified cause 07/30/2016 Esophageal reflux 07/30/2016 documented as of this encounter (statuses as of 12/05/2022) [facility] History of Past illness Narrative* Problem Noted Date Diagnosed Date Resolved Date Seborrhea 10/30/2012 07/30/2016 Sprain and strain of unspeci fied site of shoulder and upper arm 07/29/2012 07/30/2016 Pain in joint, shoulder region 07/29/2012 07/30/2016 Acute KS 09/18/2011 06/06/2016 DM w/o Complication Type II 01/08/2010 02/05/2015 Fatigue 01/08/2010 06/06/2016 Contact dermatitis and other eczema, due to unspecified cause 07/30/2016 Esophageal reflux 07/30/2016 documented as of this encounter (statuses as of 12/10/2022) [facility] History of Past illness Narrative* Problem Noted Date Diagnosed Date Resolved Date Seborrhea 10/30/2012 07/30/2016 Sprain and strain of unspeci fied site of shoulder and upper arm 07/29/2012 07/30/2016 Pain in joint, shoulder region 07/29/2012 07/30/2016 Acute KS 09/18/2011 06/06/2016 DM w/o Complication Type II 01/08/2010 02/05/2015 Fatigue 01/08/2010 06/06/2016 Contact dermatitis and other eczema, due to unspecified cause 07/30/2016 Esophageal reflux 07/30/2016 documented as of this encounter (statuses as of 12/16/2022) [facility] History of Past illness Narrative* Problem Noted Date Diagnosed Date Resolved Date Seborrhea 10/30/2012 07/30/2016 Sprain and strain of unspeci fied site of shoulder and upper arm 07/29/2012 07/30/2016 Pain in joint, shoulder region 07/29/2012 07/30/2016 Acute [place] 09/18/2011 06/06/2016 DM w/o Complication Type II 01/08/2010 02/05/2015 Fatigue 01/08/2010 06/06/2016 Contact dermatitis and other eczema, due to unspecified cause 07/30/2016 Esophageal reflux 07/30/2016 documented as of this encounter (statuses as of 12/29/2022) [facility] History of Past illness Narrative* Problem Noted Date Diagnosed Date Resolved Date Seborrhea 10/30/2012 07/30/2016 Sprain and strain of unspeci fied site of shoulder and upper arm 07/29/2012 07/30/2016 Pain in joint, shoulder region 07/29/2012 07/30/2016 Acute KS 09/18/2011 06/06/2016 DM w/o Complication Type II 01/08/2010 02/05/2015 Fatigue 01/08/2010 06/06/2016 Contact dermatitis and other eczema, due to unspecified cause 07/30/2016 Esophageal reflux 07/30/2016 documented as of this encounter (statuses as of 01/01/2023) [facility] History of Past illness Narrative* Problem Noted Date Diagnosed Date Resolved Date Seborrhea 10/30/2012 07/30/2016 Sprain and strain of unspeci fied site of shoulder and upper arm 07/29/2012 07/30/2016 Pain in joint, shoulder region 07/29/2012 07/30/2016 Acute KS 09/18/2011 06/06/2016 DM w/o Complication Type II 01/08/2010 02/05/2015 Fatigue 01/08/2010 06/06/2016 Contact dermatitis and other eczema, due to unspecified cause 07/30/2016 Esophageal reflux 07/30/2016 documented as of this encounter (statuses as of 01/02/2023) [facility] History of Past illness Narrative* Problem Noted Date Diagnosed Date Resolved Date Seborrhea 10/30/2012 07/30/2016 Sprain and strain of unspeci fied site of shoulder and upper arm 07/29/2012 07/30/2016 Pain in joint, shoulder region 07/29/2012 07/30/2016 Acute KS 09/18/2011 06/06/2016 DM w/o Complication Type II 01/08/2010 02/05/2015 Fatigue 01/08/2010 06/06/2016 Contact dermatitis and other eczema, due to unspecified cause 07/30/2016 Esophageal reflux 07/30/2016 documented as of this encounter (statuses as of 01/06/2023) [facility] History of Past illness Narrative* Problem Noted Date Diagnosed Date Resolved Date Seborrhea 10/30/2012 07/30/2016 Sprain and strain of unspeci fied site of shoulder and upper arm 07/29/2012 07/30/2016 Pain in joint, shoulder region 07/29/2012 07/30/2016 Acute [place] 09/18/2011 06/06/2016 DM w/o Complication Type II 01/08/2010 02/05/2015 Fatigue 01/08/2010 06/06/2016 Contact dermatitis and other eczema, due to unspecified cause 07/30/2016 Esophageal reflux 07/30/2016 documented as of this encounter (statuses as of 01/07/2023) [facility] note* Diagnosis Parkinson's disease (HCC)- Primary Paralysis agitans Dementia without behavioral disturbance, unspecified dementia type (HCC) Visual hallucinations Psychophysical visual disturbances Midline low back pain without sciatica, unspecified chronicity Bowel and bladder incontinence Unspecified urinary incontinence Gait instability Abnormality of gait Type 2 diabetes mellitus with other specified complication, without long-term current use of insulin ([facility]) History of stroke Transient ischemic attack (TIA), and cerebral infarction without residual deficits documented in this encounter [facility] note* Diagnosis Parkinson's disease (HCC)- Primary Paralysis agitans Gait instability Abnormality of gait Dementia without behavioral disturbance, unspecified dementia type (HCC) Visual hallucinations Psychophysical visual disturbances Midline low back pain without sciatica, unspecified chronicity Bowel and bladder incontinence Unspecified urinary incontinence History of stroke Transient ischemic attack (TIA), and cerebral infarction without residual deficits Type 2 diabetes mellitus without complication, without long-term current use of insulin ([facility]) documented in this encounter [facility] note* Diagnosis Abnormality of gait- Primary History of stroke Transient ischemic attack (TIA), and cerebral infarction without residual deficits Dementia without behavioral disturbance, unspecified dementia type (HCC) Parkinson's disease (HCC) Paralysis agitans documented in this encounter [facility] note* Diagnosis Type 2 diabetes mellitus without complication, without long-term current use of insulin (HCC)- Primary Parkinson's disease (HCC) Paralysis agitans Hearing loss of left ear, unspecified hearing loss type Chronic low back pain without sciatica, unspecified back pain laterality DDD (degenerative disc disease), lumbar Degeneration of lumbar or lumbosacral intervertebral disc Facet arthropathy, lumbar Lumbosacral spondylosis without myelopathy Dementia without behavioral disturbance, unspecified dementia type (HCC) Acquired hypothyroidism Unspecified hypothyroidism documented in this encounter [facility] note* Diagnosis Panic disorder without agoraphobia- Primary Parkinson's disease (HCC) Paralysis agitans S/P CABG x 3 Postsurgical aortocoronary bypass status [facility] Diagnosis Panic disorder without agoraphobia Parkinson's disease (HCC) Paralysis agitans [facility] Diagnosis Parkinson's disease (HCC)- Primary Paralysis agitans Gait instability Abnormality of gait Dementia without behavioral disturbance, unspecified dementia type ([facility]) Visual hallucinations Psychophysical visual disturbances Midline low back pain without sciatica, unspecified chronicity Bowel and bladder incontinence Unspecified urinary incontinence History of stroke Transient ischemic attack (TIA), and cerebral infarction without residual deficits Type 2 diabetes mellitus without complication, without long-term current use of insulin ([facility]) [facility] Diagnosis Urinary incontinence, unspecified type- Primary Parkinson's disease (HCC) Paralysis agitans Dementia without behavioral disturbance, unspecified dementia type [facility] Diagnosis Parkinson's disease (HCC) Paralysis agitans Dementia without behavioral disturbance (HCC) Dementia, unspecified, without behavioral disturbance Urinary incontinence, unspecified type [facility] Diagnosis Dysuria- Primary [facility] Diagnosis Parkinson's disease (HCC) Paralysis agitans Dementia without behavioral disturbance (HCC) Dementia, unspecified, without behavioral disturbance Urinary incontinence, unspecified type [facility] Diagnosis Panic disorder without agoraphobia [facility]* Diagnosis Type 2 diabetes mellitus without complication, without long-term current use of insulin ([facility]) [facility] Diagnosis Type 2 diabetes mellitus without complication, without long-term current use of insulin ([facility])- Primary Renal insufficiency Unspecified disorder of kidney and ureter Low serum albumin [facility]* Diagnosis Type 2 diabetes mellitus without complication, without long-term current use of insulin ([facility])- Primary Acquired hypothyroidism Unspecified hypothyroidism Parkinson's disease (HCC) Paralysis agitans Urinary incontinence, unspecified type Positive for macroalbuminuria Proteinuria Primary hypertension Unspecified essential hypertension Encounter for long-term current use of medication [facility]* Diagnosis Parkinson's disease (HCC)- Primary Paralysis agitans Abnormality of gait Dementia without behavioral disturbance (HCC) Dementia, unspecified, without behavioral disturbance Midline low back pain without sciatica, unspecified chronicity Bowel and bladder incontinence Unspecified urinary incontinence History of stroke Transient ischemic attack (TIA), and cerebral infarction without residual deficits Type 2 diabetes mellitus without complication, without long-term current use of insulin ([facility]) [facility]* Diagnosis Type 2 diabetes mellitus without complication, without long-term current use of insulin ([facility])- Primary Decubitus ulcer of coccygeal region, unspecified ulcer stage Obstruction of right ureter Primary hypertension Unspecified essential hypertension Parkinson's disease (HCC) Paralysis agitans [facility]* Diagnosis Type 2 diabetes mellitus without complication, without long-term current use of insulin ([facility])- Primary Screening for diabetic retinopathy Screening for other eye conditions Screening for colon cancer Special screening for malignant neoplasms, colon Encounter for immunization Need for other specified prophylactic vaccination against single bacterial disease Chronic skin ulcer, limited to breakdown of skin ([facility]) Urinary incontinence, unspecified type Obstruction of right ureter Elevated serum creatinine Other nonspecific findings on examination of blood S/P CABG x 3 Postsurgical aortocoronary bypass status [facility] Diagnosis Primary hypertension Unspecified essential hypertension [facility] Diagnosis Panic disorder without agoraphobia [facility]* Diagnosis Type 2 diabetes mellitus without complication, without long-term current use of insulin ([facility]) [facility] Diagnosis Panic disorder without agoraphobia- Primary Dementia without behavioral disturbance (HCC) Dementia, unspecified, without behavioral disturbance History of psychosis Personal history of other mental disorder Chronic skin ulcer, limited to breakdown of skin (HCC) Chronic renal disease, stage IV (HCC) Chronic kidney disease, Stage IV (severe) Type 2 diabetes mellitus with other specified complication, without long-term current use of insulin (HCC) Acquired hypothyroidism Unspecified hypothyroidism Encounter for therapeutic drug monitoring [facility] Diagnosis Panic disorder without agoraphobia [facility] Diagnosis Parkinson's disease (HCC)- Primary Paralysis agitans Abnormality of gait Dementia without behavioral disturbance (HCC) Dementia, unspecified, without behavioral disturbance Lumbar pain Lumbago History of stroke Transient ischemic attack (TIA), and cerebral infarction without residual deficits Spinal stenosis of lumbar region, unspecified whether neurogenic claudication present [facility]* Diagnosis Parkinson's disease (HCC)- Primary Paralysis agitans Lumbar pain Lumbago Abnormality of gait documented in this encounter [facility] note* Diagnosis Panic disorder without agoraphobia [facility]* Diagnosis Parkinson's disease (HCC)- Primary Paralysis agitans documented in this encounter [facility] note* Diagnosis Parkinson's disease with fluctuating manifestations, unspecified whether dyskinesia present- Primary Abnormality of gait Dementia without behavioral disturbance (HCC) Dementia, unspecified, without behavioral disturbance Visual hallucinations Psychophysical visual disturbances Spinal stenosis of lumbar region, unspecified whether neurogenic claudication present History of stroke Transient ischemic attack (TIA), and cerebral infarction without residual deficits Hypotension, unspecified hypotension type documented in this encounter [facility] note* Diagnosis Panic disorder without agoraphobia documented in this encounter [facility] note* Diagnosis Parkinson's disease Paralysis agitans documented in this encounter [facility] note* Diagnosis Panic disorder without agoraphobia [facility] Diagnostic Procedure Only (Routine) - Authorized Specialty Diagnoses / Procedures Referred By Sandy javier Referred To Contact US IMAGING Diagnoses Parkinson's disease (HCC) Dementia without behavioral disturbance, unspecified dementia type Urinary incontinence, unspecified type Procedures US PELVIS BLADDER US PELVIC NONOBSTETRIC IMAGE DCMTN LIMITED/F/U Bobby Doherty APRN.CNS [address] [place] [address] Us Imaging Referral ID Status Reason Start Date Expiration Date Visits Requested Visits Authorized [id number] Authorized Auto-Generat ed Referral 01/14/2022 02/13/2023 1 1 * Consult, Test, Treat (Routine) - Authorized Specialty Diagnoses / Procedures Referred By Contac t Referred To Contact Urology Diagnoses Parkinson's disease (HCC) Dementia without behavioral disturbance, unspecified dementia type Urinary incontinence, unspecified type Procedures CONSULT TO UROLOGY OFFICE/OUTPATIENT NEW HIGH MDM 60-74 MINUTES Bobby Doherty APRN.IRRIGATING PUMP OPERATOR [address] [place] [address] Referral ID Status Reason Start Date Expiration Date Visits Requested Visits Authorized [id number] Authorized PCP Requested Referral 01/14/2022 01/14/2023 1 1 [facility] for referral (narrative)* Diagnostic Procedure Only (Routine) - Closed Specialty Diagnoses / Procedures Referred By Contac t Referred To Contact US IMAGING Diagnoses Parkinson's disease (HCC) Dementia without behavioral disturbance, unspecified dementia type Urinary incontinence, unspecified type Procedures US PELVIS BLADDER US PELVIC NONOBSTETRIC IMAGE DCMTN LIMITED/F/U Bobby Doherty APRN.IRRIGATING PUMP OPERATOR [address] [place] [address] Us Imaging Referral ID Status Reason Start Date Expiration Date V isits Requested Visits Authorized [id number] Closed Auto-Generate d Referral 01/14/2022 02/13/2023 1 1 [facility] for referral (narrative)* Outpatient Procedure (Routine) - Pending Review Specialty Diagnoses / Procedures Referred By Contac t Referred To Contact [facility] Diagnoses Parkinson's disease (HCC) Urinary incontinence, unspecified type Procedures URODYNAMICS WITH EMG EMG STDS ANAL/URTL SPHNCTR OTH/THN NDL Ricardo Mcdonald PA-C [address] [place] [address] [facility] [address] [place] [address] Referral ID Status Reason Start Date Expiration Date Visits Requested Visits Authorized [id number] Pending Review Auto-Generat ed Referral 2 01/28/2023 1 1 * Outpatient Procedure (Routine) - Pending Review Specialty Diagnoses / Procedures Referred By Contac t Referred To Contact [facility] Diagnoses Parkinson's disease (HCC) Urinary incontinence, unspecified type Procedures CYSTO/TRUS ONLY CYSTOURETHROSCOPY US, TRANSRECTAL Ricardo Mcdonald PA-C [address] [place] [address] [facility] [address] [place] [address] Referral ID Status Reason Start Date Expiration Date Visits Requested Visits Authorized [id number] Pending Review Auto-Generat ed Referral 2 01/28/2023 1 1 [facility] Summary Purpose Family History No Family History Records FoundNo Family History Records Found Advance Directives No Advanced Directives Records FoundNo Advanced Directives Records Found Reason for Referral Specialty Diagnoses / Procedures Referred By Contac t Referred To Contact [facility] Diagnoses Parkinson's disease (HCC) Gait instability Procedures CONSULT TO PHYSICAL THERAPY PHYSICAL THERAPY EVALUATION HIGH COMPLEX 45 MINS THERAPEUTIC EXERCISES RE, EA 15 MIN. Asiya John, BOSSMAN.PRODUCT SAFETY ENGINEER [address] [place] [address] [facility] [address] [address] Referral ID Status Reason Start Date Expiration Date V isits Requested Visits Authorized [id number] Authorized 07/12/2021 04/19/2022 99 99 Specialty Diagnoses / Procedures Referred By Contac t Referred To Contact Diagnoses Abnormality of gait History of stroke Dementia without behavioral disturbance, unspecified dementia type (HCC) Parkinson's disease (HCC) Procedures CONSULT TO [facility] Asiya John, BOSSMAN.PRODUCT SAFETY ENGINEER [address] [place] [address] [address] [place] [id number] Referral ID Status Reason Start Date Expiration Date Visits Requested Visits Authorized [id number] Authorized PCP Requested Referral 09/17/2021 12/16/2021 1 1 Specialty Diagnoses / Procedures Referred By Contac t Referred To Contact [facility] Diagnoses Gait instability Midline low back pain without sciatica, unspecified chronicity Bowel and bladder incontinence Lumbar pain Procedures CONSULT TO [facility] OFFICE/OUTPATIENT [facility] 60-74 MINUTES Asiya John, SYSTEMS SOFTWARE DEVELOPER.PRODUCT SAFETY ENGINEER [address] [place] [address] Referral ID Status Reason Start Date Expiration Date Visits Requested Visits Authorized [id number] Authorized PCP Requested Referral 12/12/2021 12/12/2022 1 1 Specialty Diagnoses / Procedures Referred By Contac t Referred To Contact Bobby Doherty, SYSTEMS SOFTWARE DEVELOPER.IRRIGATING PUMP OPERATOR [address] [place] [address] Referral ID Status Reason Start Date Expiration Date V isits Requested Visits Authorized [id number] Pending Review 1 1 Specialty Diagnoses / Procedures Referred By Contac t Referred To Contact [facility] Diagnoses Abnormality of gait Lumbar pain Spinal stenosis of lumbar region, unspecified whether neurogenic claudication present Procedures CON[facility]ULT TO [facility] OFFICE/OUTPATIENT [facility] 60-74 MINUTES Asiya John, SYSTEMS SOFTWARE DEVELOPER.PRODUCT SAFETY ENGINEER [address] [place] [address] Referral ID Status Reason Start Date Expiration Date Visits Requested Visits Authorized [id number] Pending Review PCP Requested Referral 11/21/2022 11/21/2023 1 1 Specialty Diagnoses / Procedures Referred By Contac t Referred To Contact Diagnoses Parkinson's disease (HCC) Lumbar pain Abnormality of gait Procedures CONSULT TO [facility] Asiya John, SYSTEMS SOFTWARE DEVELOPER.PRODUCT SAFETY ENGINEER [address] [place] [address] [address] [place] [id number] Referral ID Status Reason Start Date Expiration Date Visits Requested Visits Authorized [id number] Pending Review PCP Requested Referral 11/27/2022 02/25/2023 1 1 Specialty Diagnoses / Procedures Referred By Contac t Referred To Contact Diagnoses Dementia without behavioral disturbance (HCC) Jeet Alvarez Jr., MD [address] [address] Referral ID Status Reason Start Date Expiration Date Visits Re quested Visits Authorized [id number] Closed 1 1 Specialty Diagnoses / Procedures Referred By Contac t Referred To Contact [facility] Diagnoses Parkinson's disease with fluctuating manifestations, unspecified whether dyskinesia present Procedures CONSULT TO RECTANGULAR [facility] OCCUPATIONAL THERAPY EVAL HIGH COMPLEX 60 MINS Jeet Alvarez Jr., MD [address] [facility] [address] [place] [address] [facility] [address] [address] Referral ID Status Reason Start Date Expiration Date Visits Requested Visits Authorized [id number] Pending Review Auto-Generat ed Referral 02/23/2023 02/23/2024 1 1 Specialty Diagnoses / Procedures Referred By Contac t Referred To Contact [facility] Diagnoses Parkinson's disease with fluctuating manifestations, unspecified whether dyskinesia present Procedures CONSULT TO PHYSICAL THERAPY PHYSICAL THERAPY EVALUATION HIGH COMPLEX 45 MINS Jeet Alvarez Jr., MD [address] [facility] [address] [place] [address] [address] Referral ID Status Reason Start Date Expiration Date Visits Requested Visits Authorized [id number] Pending Review Auto-Generat ed Referral 02/23/2023 02/23/2024 1 1 Additional Source Comments INFORMATION SOURCE (unrecogn ized section and content) DATE CREATED AUTHOR AUTHOR'S ORGANIZ ATION 05/29/2023 [facility] Source Comments (unrecognize d section and content) In the event this informatio n is protected by the Federal Confidentiality of Alcohol and Drug Abuse Patient Records regulations: The Federal rules restrict any use of the information to criminally investigate or prosecute any alcohol or drug abuse patient.[facility] the event this information is protected by the Federal Confidentiality of Alcohol and Drug Abuse Patient Records regulations: The Federal rules restrict any use of the information to criminally investigate or prosecute any alcohol or drug abuse patient.[facility] the event this information is protected by the Federal Confidentiality of Alcohol and Drug Abuse Patient Records regulations: The Federal rules restrict any use of the information to criminally investigate or prosecute any alcohol or drug abuse patient.[facility] the event this information is protected by the Federal Confidentiality of Alcohol and Drug Abuse Patient Records regulations: The Federal rules restrict any use of the information to criminally investigate or prosecute any alcohol or drug abuse patient.[facility] the event this information is protected by the Federal Confidentiality of Alcohol and Drug Abuse Patient Records regulations: The Federal rules restrict any use of the information to criminally investigate or prosecute any alcohol or drug abuse patient.[facility] the event this information is protected by the Federal Confidentiality of Alcohol and Drug Abuse Patient Records regulations: The Federal rules restrict any use of the information to criminally investigate or prosecute any alcohol or drug abuse patient.[facility] the event this information is protected by the Federal Confidentiality of Alcohol and Drug Abuse Patient Records regulations: The Federal rules restrict any use of the information to criminally investigate or prosecute any alcohol or drug abuse patient.[facility] the event this information is protected by the Federal Confidentiality of Alcohol and Drug Abuse Patient Records regulations: The Federal rules restrict any use of the information to criminally investigate or prosecute any alcohol or drug abuse patient.[facility] the event this information is protected by the Federal Confidentiality of Alcohol and Drug Abuse Patient Records regulations: The Federal rules restrict any use of the information to criminally investigate or prosecute any alcohol or drug abuse patient.[facility] the event this information is protected by the Federal Confidentiality of Alcohol and Drug Abuse Patient Records regulations: The Federal rules restrict any use of the information to criminally investigate or prosecute any alcohol or drug abuse patient.[facility] the event this information is protected by the Federal Confidentiality of Alcohol and Drug Abuse Patient Records regulations: The Federal rules restrict any use of the information to criminally investigate or prosecute any alcohol or drug abuse patient.[facility] the event this information is protected by the Federal Confidentiality of Alcohol and Drug Abuse Patient Records regulations: The Federal rules restrict any use of the information to criminally investigate or prosecute any alcohol or drug abuse patient.[facility] the event this information is protected by the Federal Confidentiality of Alcohol and Drug Abuse Patient Records regulations: The Federal rules restrict any use of the information to criminally investigate or prosecute any alcohol or drug abuse patient.[facility] the event this information is protected by the Federal Confidentiality of Alcohol and Drug Abuse Patient Records regulations: The Federal rules restrict any use of the information to criminally investigate or prosecute any alcohol or drug abuse patient.[facility] HospitalIn the event this information is protected by the Federal Confidentiality of Alcohol and Drug Abuse Patient Records regulations: The Federal rules restrict any use of the information to criminally investigate or prosecute any alcohol or drug abuse patient.[facility]In the event this information is protected by the Federal Confidentiality of Alcohol and Drug Abuse Patient Records regulations: The Federal rules restrict any use of the information to criminally investigate or prosecute any alcohol or drug abuse patient.[facility]In the event this information is protected by the Federal Confidentiality of Alcohol and Drug Abuse Patient Records regulations: The Federal rules restrict any use of the information to criminally investigate or prosecute any alcohol or drug abuse patient.[facility] HospitalIn the event this information is protected by the Federal Confidentiality of Alcohol and Drug Abuse Patient Records regulations: The Federal rules restrict any use of the information to criminally investigate or prosecute any alcohol or drug abuse patient.[facility]In the event this information is protected by the Federal Confidentiality of Alcohol and Drug Abuse Patient Records regulations: The Federal rules restrict any use of the information to criminally investigate or prosecute any alcohol or drug abuse patient.[facility]In the event this information is protected by the Federal Confidentiality of Alcohol and Drug Abuse Patient Records regulations: The Federal rules restrict any use of the information to criminally investigate or prosecute any alcohol or drug abuse patient.[facility]In the event this information is protected by the Federal Confidentiality of Alcohol and Drug Abuse Patient Records regulations: The Federal rules restrict any use of the information to criminally investigate or prosecute any alcohol or drug abuse patient.[facility] the event this information is protected by the Federal Confidentiality of Alcohol and Drug Abuse Patient Records regulations: The Federal rules restrict any use of the information to criminally investigate or prosecute any alcohol or drug abuse patient.[facility] the event this information is protected by the Federal Confidentiality of Alcohol and Drug Abuse Patient Records regulations: The Federal rules restrict any use of the information to criminally investigate or prosecute any alcohol or drug abuse patient.[facility]In the event this information is protected by the Federal Confidentiality of Alcohol and Drug Abuse Patient Records regulations: The Federal rules restrict any use of the information to criminally investigate or prosecute any alcohol or drug abuse patient.[facility] the event this information is protected by the Federal Confidentiality of Alcohol and Drug Abuse Patient Records regulations: The Federal rules restrict any use of the information to criminally investigate or prosecute any alcohol or drug abuse patient.[facility] the event this information is protected by the Federal Confidentiality of Alcohol and Drug Abuse Patient Records regulations: The Federal rules restrict any use of the information to criminally investigate or prosecute any alcohol or drug abuse patient.[facility]In the event this information is protected by the Federal Confidentiality of Alcohol and Drug Abuse Patient Records regulations: The Federal rules restrict any use of the information to criminally investigate or prosecute any alcohol or drug abuse patient.[facility]In the event this information is protected by the Federal Confidentiality of Alcohol and Drug Abuse Patient Records regulations: The Federal rules restrict any use of the information to criminally investigate or prosecute any alcohol or drug abuse patient.[facility]In the event this information is protected by the Federal Confidentiality of Alcohol and Drug Abuse Patient Records regulations: The Federal rules restrict any use of the information to criminally investigate or prosecute any alcohol or drug abuse patient.[facility]In the event this information is protected by the Federal Confidentiality of Alcohol and Drug Abuse Patient Records regulations: The Federal rules restrict any use of the information to criminally investigate or prosecute any alcohol or drug abuse patient.[facility]In the event this information is protected by the Federal Confidentiality of Alcohol and Drug Abuse Patient Records regulations: The Federal rules restrict any use of the information to criminally investigate or prosecute any alcohol or drug abuse patient.[facility]In the event this information is protected by the Federal Confidentiality of Alcohol and Drug Abuse Patient Records regulations: The Federal rules restrict any use of the information to criminally investigate or prosecute any alcohol or drug abuse patient.[facility]In the event this information is protected by the Federal Confidentiality of Alcohol and Drug Abuse Patient Records regulations: The Federal rules restrict any use of the information to criminally investigate or prosecute any alcohol or drug abuse patient.[facility]In the event this information is protected by the Federal Confidentiality of Alcohol and Drug Abuse Patient Records regulations: The Federal rules restrict any use of the information to criminally investigate or prosecute any alcohol or drug abuse patient.[facility]In the event this information is protected by the Federal Confidentiality of Alcohol and Drug Abuse Patient Records regulations: The Federal rules restrict any use of the information to criminally investigate or prosecute any alcohol or drug abuse patient.[facility]In the event this information is protected by the Federal Confidentiality of Alcohol and Drug Abuse Patient Records regulations: The Federal rules restrict any use of the information to criminally investigate or prosecute any alcohol or drug abuse patient.[facility]In the event this information is protected by the Federal Confidentiality of Alcohol and Drug Abuse Patient Records regulations: The Federal rules restrict any use of the information to criminally investigate or prosecute any alcohol or drug abuse patient.[facility]In the event this information is protected by the Federal Confidentiality of Alcohol and Drug Abuse Patient Records regulations: The Federal rules restrict any use of the information to criminally investigate or prosecute any alcohol or drug abuse patient.[facility]In the event this information is protected by the Federal Confidentiality of Alcohol and Drug Abuse Patient Records regulations: The Federal rules restrict any use of the information to criminally investigate or prosecute any alcohol or drug abuse patient.[facility]In the event this information is protected by the Federal Confidentiality of Alcohol and Drug Abuse Patient Records regulations: The Federal rules restrict any use of the information to criminally investigate or prosecute any alcohol or drug abuse patient.[facility] HospitalIn the event this information is protected by the Federal Confidentiality of Alcohol and Drug Abuse Patient Records regulations: The Federal rules restrict any use of the information to criminally investigate or prosecute any alcohol or drug abuse patient.[facility] HospitalIn the event this information is protected by the Federal Confidentiality of Alcohol and Drug Abuse Patient Records regulations: The Federal rules restrict any use of the information to criminally investigate or prosecute any alcohol or drug abuse patient.[facility] HospitalIn the event this information is protected by the Federal Confidentiality of Alcohol and Drug Abuse Patient Records regulations: The Federal rules restrict any use of the information to criminally investigate or prosecute any alcohol or drug abuse patient.[facility] HospitalIn the event this information is protected by the Federal Confidentiality of Alcohol and Drug Abuse Patient Records regulations: The Federal rules restrict any use of the information to criminally investigate or prosecute any alcohol or drug abuse patient.[facility] HospitalIn the event this information is protected by the Federal Confidentiality of Alcohol and Drug Abuse Patient Records regulations: The Federal rules restrict any use of the information to criminally investigate or prosecute any alcohol or drug abuse patient.[facility] HospitalIn the event this information is protected by the Federal Confidentiality of Alcohol and Drug Abuse Patient Records regulations: The Federal rules restrict any use of the information to criminally investigate or prosecute any alcohol or drug abuse patient.[facility] HospitalIn the event this information is protected by the Federal Confidentiality of Alcohol and Drug Abuse Patient Records regulations: The Federal rules restrict any use of the information to criminally investigate or prosecute any alcohol or drug abuse patient.[facility] HospitalIn the event this information is protected by the Federal Confidentiality of Alcohol and Drug Abuse Patient Records regulations: The Federal rules restrict any use of the information to criminally investigate or prosecute any alcohol or drug abuse patient.[facility] HospitalIn the event this information is protected by the Federal Confidentiality of Alcohol and Drug Abuse Patient Records regulations: The Federal rules restrict any use of the information to criminally investigate or prosecute any alcohol or drug abuse patient.[facility] HospitalIn the event this information is protected by the Federal Confidentiality of Alcohol and Drug Abuse Patient Records regulations: The Federal rules restrict any use of the information to criminally investigate or prosecute any alcohol or drug abuse patient.[facility] HospitalIn the event this information is protected by the Federal Confidentiality of Alcohol and Drug Abuse Patient Records regulations: The Federal rules restrict any use of the information to criminally investigate or prosecute any alcohol or drug abuse patient.[facility] HospitalIn the event this information is protected by the Federal Confidentiality of Alcohol and Drug Abuse Patient Records regulations: The Federal rules restrict any use of the information to criminally investigate or prosecute any alcohol or drug abuse patient.[facility] HospitalIn the event this information is protected by the Federal Confidentiality of Alcohol and Drug Abuse Patient Records regulations: The Federal rules restrict any use of the information to criminally investigate or prosecute any alcohol or drug abuse patient.[facility] HospitalIn the event this information is protected by the Federal Confidentiality of Alcohol and Drug Abuse Patient Records regulations: The Federal rules restrict any use of the information to criminally investigate or prosecute any alcohol or drug abuse patient.[facility] HospitalIn the event this information is protected by the Federal Confidentiality of Alcohol and Drug Abuse Patient Records regulations: The Federal rules restrict any use of the information to criminally investigate or prosecute any alcohol or drug abuse patient.[facility] HospitalIn the event this information is protected by the Federal Confidentiality of Alcohol and Drug Abuse Patient Records regulations: The Federal rules restrict any use of the information to criminally investigate or prosecute any alcohol or drug abuse patient.[facility] HospitalIn the event this information is protected by the Federal Confidentiality of Alcohol and Drug Abuse Patient Records regulations: The Federal rules restrict any use of the information to criminally investigate or prosecute any alcohol or drug abuse patient.[facility] HospitalIn the event this information is protected by the Federal Confidentiality of Alcohol and Drug Abuse Patient Records regulations: The Federal rules restrict any use of the information to criminally investigate or prosecute any alcohol or drug abuse patient.[facility] HospitalIn the event this information is protected by the Federal Confidentiality of Alcohol and Drug Abuse Patient Records regulations: The Federal rules restrict any use of the information to criminally investigate or prosecute any alcohol or drug abuse patient.[facility] HospitalIn the event this information is protected by the Federal Confidentiality of Alcohol and Drug Abuse Patient Records regulations: The Federal rules restrict any use of the information to criminally investigate or prosecute any alcohol or drug abuse patient.[facility] HospitalIn the event this information is protected by the Federal Confidentiality of Alcohol and Drug Abuse Patient Records regulations: The Federal rules restrict any use of the information to criminally investigate or prosecute any alcohol or drug abuse patient.[facility] HospitalIn the event this information is protected by the Federal Confidentiality of Alcohol and Drug Abuse Patient Records regulations: The Federal rules restrict any use of the information to criminally investigate or prosecute any alcohol or drug abuse patient.[facility] HospitalIn the event this information is protected by the Federal Confidentiality of Alcohol and Drug Abuse Patient Records regulations: The Federal rules restrict any use of the information to criminally investigate or prosecute any alcohol or drug abuse patient.[facility] HospitalIn the event this information is protected by the Federal Confidentiality of Alcohol and Drug Abuse Patient Records regulations: The Federal rules restrict any use of the information to criminally investigate or prosecute any alcohol or drug abuse patient.[facility] HospitalIn the event this information is protected by the Federal Confidentiality of Alcohol and Drug Abuse Patient Records regulations: The Federal rules restrict any use of the information to criminally investigate or prosecute any alcohol or drug abuse patient.[facility] HospitalIn the event this information is protected by the Federal Confidentiality of Alcohol and Drug Abuse Patient Records regulations: The Federal rules restrict any use of the information to criminally investigate or prosecute any alcohol or drug abuse patient.[facility] HospitalIn the event this information is protected by the Federal Confidentiality of Alcohol and Drug Abuse Patient Records regulations: The Federal rules restrict any use of the information to criminally investigate or prosecute any alcohol or drug abuse patient.[facility] HospitalIn the event this information is protected by the Federal Confidentiality of Alcohol and Drug Abuse Patient Records regulations: The Federal rules restrict any use of the information to criminally investigate or prosecute any alcohol or drug abuse patient.[facility] HospitalIn the event this information is protected by the Federal Confidentiality of Alcohol and Drug Abuse Patient Records regulations: The Federal rules restrict any use of the information to criminally investigate or prosecute any alcohol or drug abuse patient.[facility] Reason for Visit (unrecogniz ed section and content) Specialty Diagnoses / Procedures Referred By Contmaryuri t Referred To Contact Neurology / NEUROLOGY Diagnoses Follow up, results review/ patient needing 60 minute appt per [facility] Procedures OFFICE/OUTPATIENT [facility] 60-74 MINUTES GHADA NO MEDICAL Asiya John APRN.PRODUCT SAFETY ENGINEER [address] [place] [address] Asiya John APRN.PRODUCT SAFETY ENGINEER [address] [place] [address] Referral ID Status Reason Start Date Expiration Date Visits Re quested Visits Authorized [id number] Closed 06/27/2021 04/19/2022 1 1 Reason Comments Established Medical Follow up Reason Comments Physical therapy question Reason Comments Patient Update Reason Comments Established Medical 8 week follow up Specialty Diagnoses / Procedures Referred By Yoselynac t Referred To Contact Neurology / NEUROLOGY Diagnoses Follow up, results review/ patient needing 60 minute appt per [facility] Procedures OFFICE/OUTPATIENT NEW HIGH MDM 60-74 MINUTES NEW MEDICAL Asiya John, SYSTEMS SOFTWARE DEVELOPER.PRODUCT SAFETY ENGINEER [address] [place] [address] Asiya John, SYSTEMS SOFTWARE DEVELOPER.PRODUCT SAFETY ENGINEER [address] [place] [address] Reason Comments Orders New order needed Reason Comments Home Care Decline Reason Comments PT delay on start of care Reason Comments Patient Question Reason Comments Fall Reason Comments Establish Care Reason Comments Allied Health Visit Medication Reconcili ation Reason Comments Orders Reason Onset Date Comments Refill Request 10/02/2021 Reason Comments Electronic Communication Home Care Reason Onset Date Comments Refill Request 11/12/2021 Reason Comments Physical Therapy Insurance Authorization FYI-No Action Needed Reason Comments Results Reason Comments Urinary Incontinence Reason Comments Radiology US Specialty Diagnoses / Procedures Referred By Sandy t Referred To Contact US IMAGING Diagnoses Parkinson's disease (HCC) Dementia without behavioral disturbance, unspecified dementia type Urinary incontinence, unspecified type Procedures US PELVIS BLADDER US PELVIC NONOBSTETRIC IMAGE [facility] LIMITED/F/U Bobby Doherty, SYSTEMS SOFTWARE DEVELOPER.IRRIGATING PUMP OPERATOR [address] [place] [id number] Us Imaging Referral ID Status Reason Start Date Expiration Date V isits Requested Visits Authorized [id number] Closed Auto-Generate d Referral 01/14/2022 02/13/2023 1 1 Reason Comments Appointment Reason Onset Date Comments Refill Request 02/11/2022 Reason Comments Consult Specialty Diagnoses / Procedures Referred By Contac t Referred To Contact Urology Diagnoses Parkinson's disease (HCC) Dementia without behavioral disturbance, unspecified dementia type Urinary incontinence, unspecified type Procedures CONSULT TO UROLOGY OFFICE/OUTPATIENT NEW HIGH MDM 60-74 MINUTES Doherty, Bobby, SYSTEMS SOFTWARE DEVELOPER.IRRIGATING PUMP OPERATOR [address] [place] [address] Referral ID Status Reason Start Date Expiration Date V isits Requested Visits Authorized [id number] Closed PCP Requested Referral 01/14/2022 01/14/2023 1 1 Reason Onset Date Comments Refill Request 03/11/2022 Reason Onset Date Comments Refill Request 04/07/2022 Reason Comments F/U 6 months Reason Comments Follow Up Specialty Diagnoses / Procedures Referred By Sandy t Referred To Contact Neurology / NEUROLOGY Diagnoses 4 Month Follow up Procedures EST NI PATIENT Asiya John, SYSTEMS SOFTWARE DEVELOPER.PRODUCT SAFETY ENGINEER [address] [place] [address] Asiya John, SYSTEMS SOFTWARE DEVELOPER.PRODUCT SAFETY ENGINEER [address] [place] [address] Referral ID Status Reason Start Date Expiration Date V isits Requested Visits Authorized [id number] Pending Review 05/15/2022 04/19/2023 1 1 Reason Comments Forms Reason Onset Date Comments Refill Request 06/04/2022 Reason Comments Refill Request Reason Comments Letter Reason Comments Hospital F/U [facility] discharge on 05/21 Reason Onset Date Comments Refill Request 07/16/2022 Reason Onset Date Comments Refill Request 08/15/2022 Reason Onset Date Comments Refill Request 08/25/2022 Reason Onset Date Comments Refill Request 10/07/2022 Reason Comments F/U 3 Month Reason Comments Opened In Error Reason Comments Medication Problem Insurance Authorization Reason Comments Medication Request 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 12/09/2022-02/06/2023 Reason Comments Follow for PT HHC Reason Comments New Patient Reason Comments Letter Letter is for both p t and spouse Reason Comments Medication Request Reason Comments Rx refill; not on current med list Reason Comments PT plan of care Care Teams (unrecognized sec tion and content) Line Installation Supervisor Relationship Specialty Start Date End Date Lai Turcios MD [address] [place] [address] PCP - General Internal Medicine 09/24/21 Line Installation Supervisor Relationship Specialty Start Date End Date Lai Turcios MD [facility] [place] [address] PCP - General Internal Medicine 09/24/21 Line Installation Supervisor Relationship Specialty Start Date End Date Lai Turcios MD [address] [place] [address], [place] [address] PCP - General Internal Medicine 09/24/21 Line Installation Supervisor Relationship Specialty Start Date End Date Lai Turcios MD [address] [place] [address], [place] [address] PCP - General Internal Medicine 09/24/21 Line Installation Supervisor Relationship Specialty Start Date End Date Lai Turcios MD [address] [place] [address], [place] [address] PCP - General Internal Medicine 09/24/21 Line Installation Supervisor Relationship Specialty Start Date End Date Lai Turcios MD [address] [place] [address], [place] [address] PCP - General Internal Medicine 09/24/21 Line Installation Supervisor Relationship Specialty Start Date End Date Lai Turcios MD [address] [place] [address], [place] [address] PCP - General Internal Medicine 09/24/21 Line Installation Supervisor Relationship Specialty Start Date End Date Lai Turcios MD [address] [place] [address], [place] [address] PCP - General Internal Medicine 09/24/21 Line Installation Supervisor Relationship Specialty Start Date End Date Lai Turcios MD [address] [place] [address], [place] [address] PCP - General Internal Medicine 09/24/21 Line Installation Supervisor Relationship Specialty Start Date End Date Lai Turcios MD [address] [place] [address] PCP - General Internal Medicine 09/24/21 Line Installation Supervisor Relationship Specialty Start Date End Date Lai Turcios MD [address] [place] [address], [place] [address] PCP - General Internal Medicine 09/24/21 Line Installation Supervisor Relationship Specialty Start Date End Date Lai Turcios MD [address] [place] [address], [place] [address] PCP - General Internal Medicine 09/24/21 Line Installation Supervisor Relationship Specialty Start Date End Date Lai Turcios MD [address] [place] [address], [place] [address] PCP - General Internal Medicine 09/24/21 Line Installation Supervisor Relationship Specialty Start Date End Date Lai Turcios MD [address] [place] [address], [place] [address] PCP - General Internal Medicine 09/24/21 Line Installation Supervisor Relationship Specialty Start Date End Date Lai Turcios MD [address] [place] [address], [place] [address] PCP - General Internal Medicine 09/24/21 Line Installation Supervisor Relationship Specialty Start Date End Date Lai Turcios MD [address] [place] [address], [place] [address] PCP - General Internal Medicine 09/24/21 Line Installation Supervisor Relationship Specialty Start Date End Date Lai Turcios MD [address] [place] [address], [place] [address] PCP - General Internal Medicine 09/24/21 Line Installation Supervisor Relationship Specialty Start Date End Date Lai Turcios MD [address] [place] [address] PCP - General Internal Medicine 09/24/21 Line Installation Supervisor Relationship Specialty Start Date End Date Lai Turcios MD [address] [place] [address] PCP - General Internal Medicine 09/24/21 Line Installation Supervisor Relationship Specialty Start Date End Date Lai Turcios MD [address] [place] [address] PCP - General Internal Medicine 09/24/21 Line Installation Supervisor Relationship Specialty Start Date End Date Lai Turcios MD [address] [place] [address] PCP - General Internal Medicine 09/24/21 Line Installation Supervisor Relationship Specialty Start Date End Date Lai Turcios MD [address] [place] [address] PCP - General Internal Medicine 09/24/21 Line Installation Supervisor Relationship Specialty Start Date End Date Lai Turcios MD [address] [place] [address] PCP - General Internal Medicine 09/24/21 Line Installation Supervisor Relationship Specialty Start Date End Date Lai Turcios MD [address] [place] [address] PCP - General Internal Medicine 09/24/21 Line Installation Supervisor Relationship Specialty Start Date End Date Lai Turcios MD [address] [place] [address] PCP - General Internal Medicine 09/24/21 Line Installation Supervisor Relationship Specialty Start Date End Date Lai Turcios MD [address] [place] [address] PCP - General Internal Medicine 09/24/21 Line Installation Supervisor Relationship Specialty Start Date End Date Lai Turcios MD [address] [place] [address] PCP - General Internal Medicine 09/24/21 Line Installation Supervisor Relationship Specialty Start Date End Date Lai Turcios MD [address] [place] [address] PCP - General Internal Medicine 09/24/21 Line Installation Supervisor Relationship Specialty Start Date End Date Lai Turcios MD [address] [place] [address] PCP - General Internal Medicine 09/24/21 Line Installation Supervisor Relationship Specialty Start Date End Date Lai Turcios MD [address] [place] [address] PCP - General Internal Medicine 09/24/21 Line Installation Supervisor Relationship Specialty Start Date End Date Lai Turcios MD [address] [place] [address] PCP - General Internal Medicine 09/24/21 Line Installation Supervisor Relationship Specialty Start Date End Date Lai Turcios MD [address] [place] [address] PCP - General Internal Medicine 09/24/21 Line Installation Supervisor Relationship Specialty Start Date End Date Lai Turcios MD [address] [place] [address] PCP - General Internal Medicine 09/24/21 Line Installation Supervisor Relationship Specialty Start Date End Date Lai Turcios MD [address] [place] [address] PCP - General Internal Medicine 09/24/21 Line Installation Supervisor Relationship Specialty Start Date End Date Lai Turcios MD [address] [place] [address] PCP - General Internal Medicine 09/24/21 FOR RECORDS PERTAINING TO PATIENTS WHO ARE OR HAVE BEEN ENROLLED IN A CHEMICAL DEPENDENCY/SUBSTANCEABUSE PROGRAM, SOME INFORMATION MAY BE OMITTED. This clinical summary was aggregated from multiple sources. Caution should be exercised in using it in the provision of clinical care. This summary normalizes information from multiple sources, and as a consequence, information in this document may materially change the coding, format and clinical context of patient data. In addition, data may be omitted in some cases. CLINICAL DECISIONS SHOULD BE BASED ON THE PRIMARY CLINICAL RECORDS. [facility]. provides no warranty or guarantee of the accuracy or completeness of information in this document.
--- OUTSIDE RECORDS SUMMARY | 2023-06-23 22:43 | XMS RPT_ITS | CCD ---
Author Name Unknown Address [address] [place] [address] Organization [facility] Care Team Providers Care Head Of Acquisitions Name Role Phone Unavailable Primary Care Provider UnavailLai Hernandez MD Primary Care Provider Lia Turcios MD Primary Care Provider Lai Trucios MD Primary Care Provider TALAMPJAMES, LAI D [...] Lisinopril; Translations: [LISINOPRIL] Drug Allergy 09-09-2010 Cough [facility] Medications Current Medications Medication Drug Class(es) [...] Coronary arteriosclerosis; Translations: [Atherosclerotic heart disease of [place] coronary artery without angina pectoris] Onset: 09-18-2011 [...] (5 sources) Patient encounter status; Translations: [Other correction (current) drug therapy] Episodic Other aftercare (1 source) Other correction (current) drug therapy; Translations: [Encounter for long-term [...] kg Jeet Alvarez Jr., MD Work Phone: [facility] 02-23-2023 15:52-0500 Diastolic blood pressure 64 mm[Hg] Jeet Alvarez Jr., MD Work Phone: [facility] 02-23-2023 15:52-0500 Heart rate 61 /min Jeet Alvarez Jr., MD Work Phone: [facility] 02-23-2023 15:52-0500 Respiratory rate 16 /min Jeet Alvarez Jr., MD Work Phone: [facility] 02-23-2023 15:52-0500 SaO2% (BldA) [Mass fraction] 96 % Jeet Alvarez Jr., MD Work Phone: [facility] 02-23-2023 15:52-0500 Systolic blood pressure 105 mm[Hg] Jeet Alvarez Jr., MD Work Phone: [facility] 11-20-2022 17:29-0400 Body temperature 100.09 [degF] Asiya John APRN.CNP Work Phone: [facility] 11-20-2022 17:29-0400 Diastolic blood pressure 69 mm[Hg] Asiya Dahlhausen SENIOR HEALTH PHYSICS TECHNICIAN.BASE MANAGER Work Phone: [facility] 11-20-2022 17:29-0400 Heart rate 109 /min Asiya Dahlhausen SENIOR HEALTH PHYSICS TECHNICIAN.BASE MANAGER Work Phone: [facility] 11-20-2022 17:29-0400 Systolic blood pressure 107 mm[Hg] Asiya Dahlhausen SENIOR HEALTH PHYSICS TECHNICIAN.BASE MANAGER Work Phone: [facility] 10-14-2022 15:43-0400 Diastolic blood pressure 80 mm[Hg] Sara Rosette SENIOR HEALTH PHYSICS TECHNICIAN.BASE MANAGER Work Phone: [facility] 10-14-2022 15:43-0400 Heart rate 99 /min Sara Rosette SENIOR HEALTH PHYSICS TECHNICIAN.BASE MANAGER Work Phone: [facility] 10-14-2022 15:43-0400 SaO2% (BldA) [Mass fraction] 98 % Sara Rosette SENIOR HEALTH PHYSICS TECHNICIAN.BASE MANAGER Work Phone: [facility] 10-14-2022 15:43-0400 Systolic blood pressure 118 mm[Hg] Sara Rosette SENIOR HEALTH PHYSICS TECHNICIAN.BASE MANAGER Work Phone: [facility] 08-04-2022 15:09-0400 Body weight 58.97 kg Bobby Doherty SENIOR HEALTH PHYSICS TECHNICIAN.TRAINING ANALYST Work Phone: [facility] 08-04-2022 15:09-0400 Diastolic blood pressure 68 mm[Hg] Bobby Doherty SENIOR HEALTH PHYSICS TECHNICIAN.TRAINING ANALYST Work Phone: [facility] 08-04-2022 15:09-0400 Heart rate 90 /min Bobby Doherty SENIOR HEALTH PHYSICS TECHNICIAN.TRAINING ANALYST Work Phone: [facility] 08-04-2022 15:09-0400 Respiratory rate 16 /min Bobby Doherty SENIOR HEALTH PHYSICS TECHNICIAN.TRAINING ANALYST Work Phone: [facility] 08-04-2022 15:09-0400 Systolic blood pressure 116 mm[Hg] Bobby Doherty SENIOR HEALTH PHYSICS TECHNICIAN.TRAINING ANALYST Work Phone: [facility] 06-16-2022 14:10-0500 Body temperature 97.81 [degF] Lai Turcios MD Work Phone: [facility] 06-16-2022 14:10-0500 Diastolic blood pressure 68 mm[Hg] Lai Turcios MD Work Phone: [facility] 06-16-2022 14:10-0500 Heart rate 73 /min Lai Turcios MD Work Phone: [facility] 06-16-2022 14:10-0500 Respiratory rate 18 /min Lai Turcios MD Work Phone: [facility] 06-16-2022 14:10-0500 SaO2% (BldA) [Mass fraction] 95 % Lai Turcios MD Work Phone: [facility] 06-16-2022 14:10-0500 Systolic blood pressure 104 mm[Hg] Lai Turcios MD Work Phone: [facility] 05-15-2022 16:32-0500 Body temperature 99.39 [degF] Asiya Dahlhausen SENIOR HEALTH PHYSICS TECHNICIAN.BASE MANAGER Work Phone: [facility] 05-15-2022 16:32-0500 Body weight 59.33 kg Asiya Dahlhausen SENIOR HEALTH PHYSICS TECHNICIAN.BASE MANAGER Work Phone: [facility] 05-15-2022 16:32-0500 Diastolic blood pressure 66 mm[Hg] Asiya Dahlhausen SENIOR HEALTH PHYSICS TECHNICIAN.BASE MANAGER Work Phone: [facility] 05-15-2022 16:32-0500 Heart rate 118 /min Asiya Dahlhausen SENIOR HEALTH PHYSICS TECHNICIAN.BASE MANAGER Work Phone: [facility] 05-15-2022 16:32-0500 Respiratory rate 16 /min Asiya Dahlhausen SENIOR HEALTH PHYSICS TECHNICIAN.BASE MANAGER Work Phone: [facility] 05-15-2022 16:32-0500 SaO2% (BldA) [Mass fraction] 96 % Asiya Dahlhausen SENIOR HEALTH PHYSICS TECHNICIAN.BASE MANAGER Work Phone: [facility] 05-15-2022 16:32-0500 Systolic blood pressure 100 mm[Hg] Asiya Teekal CUENCA Work Phone: [facility] 03-24-2022 11:01-0500 Body weight 63.05 kg Lai Turcios MD Work Phone: [facility] 03-24-2022 11:01-0500 Diastolic blood pressure 62 mm[Hg] Lai Turcios MD Work Phone: [facility] 03-24-2022 11:01-0500 Heart rate 102 /min Lai Turcios MD Work Phone: [facility] 03-24-2022 11:01-0500 SaO2% (BldA) [Mass fraction] 96 % Lai Turcios MD Work Phone: [facility] 03-24-2022 11:01-0500 Systolic blood pressure 108 mm[Hg] Lai Turcios MD Work Phone: [facility] 01-28-2022 16:55-0400 Body height 156.8 cm Ricardo Mcdonald PA-C Work Phone: [facility] 01-28-2022 16:55-0400 Body temperature 99 [degF] Ricardo Mcdonald PA-C Work Phone: [facility] 01-28-2022 16:55-0400 Body weight 65.77 kg Ricardo Mcdonald PA-C Work Phone: [facility] 01-28-2022 16:55-0400 Diastolic blood pressure 60 mm[Hg] Ricardo Mcdonald PA-C Work Phone: [facility] 01-28-2022 16:55-0400 Heart rate 124 /min Ricardo Mcdonald PA-C Work Phone: [facility] 01-28-2022 16:55-0400 Respiratory rate 14 /min Ricardo Mcdonald PA-C Work Phone: [facility] 01-28-2022 16:55-0400 SaO2% (BldA) [Mass fraction] 95 % Ricardo Mcdonald PA-Mathew Work Phone: [facility] 01-28-2022 16:55-0400 Systolic blood pressure 110 mm[Hg] Ricardo ELLSWORTH-C Work Phone: [facility] 01-14-2022 15:36-0400 Body weight 64.86 kg Bobby Doherty SENIOR HEALTH PHYSICS TECHNICIAN.TRAINING ANALYST Work Phone: [facility] 01-14-2022 15:36-0400 Diastolic blood pressure 72 mm[Hg] Bobby Doherty SENIOR HEALTH PHYSICS TECHNICIAN.TRAINING ANALYST Work Phone: [facility] 01-14-2022 15:36-0400 Heart rate 120 /min Bobby Doherty SENIOR HEALTH PHYSICS TECHNICIAN.TRAINING ANALYST Work Phone: [facility] 01-14-2022 15:36-0400 Respiratory rate 16 /min Bobby Doherty SENIOR HEALTH PHYSICS TECHNICIAN.TRAINING ANALYST Work Phone: [facility] 01-14-2022 15:36-0400 SaO2% (BldA) [Mass fraction] 94 % Bobby Doherty SENIOR HEALTH PHYSICS TECHNICIAN.TRAINING ANALYST Work Phone: [facility] 01-14-2022 15:36-0400 Systolic blood pressure 108 mm[Hg] Bobby Doherty SENIOR HEALTH PHYSICS TECHNICIAN.TRAINING ANALYST Work Phone: [facility] 12-12-2021 16:31-0400 Body temperature 98.1 [degF] Asiya Dahlhausen SENIOR HEALTH PHYSICS TECHNICIAN.BASE MANAGER Work Phone: [facility] 12-12-2021 16:31-0400 Body weight 63.59 kg Asiya Dahlhausen SENIOR HEALTH PHYSICS TECHNICIAN.BASE MANAGER Work Phone: [facility] 12-12-2021 16:31-0400 Diastolic blood pressure 64 mm[Hg] Asiya Dahlhausen SENIOR HEALTH PHYSICS TECHNICIAN.BASE MANAGER Work Phone: [facility] 12-12-2021 16:31-0400 Heart rate 97 /min Asiya Dahlhausen SENIOR HEALTH PHYSICS TECHNICIAN.BASE MANAGER Work Phone: [facility] 12-12-2021 16:31-0400 Respiratory rate 28 /min Asiya Dahlhausen SENIOR HEALTH PHYSICS TECHNICIAN.BASE MANAGER Work Phone: [facility] 12-12-2021 16:31-0400 SaO2% (BldA) [Mass fraction] 95 % Asiya Floreshausen SENIOR HEALTH PHYSICS TECHNICIAN.BASE MANAGER Work Phone: [facility] 12-12-2021 16:31-0400 Systolic blood pressure 98 mm[Hg] Asiya Floreshausen SENIOR HEALTH PHYSICS TECHNICIAN.BASE MANAGER Work Phone: [facility] 09-23-2021 16:59-0400 Body height 152.4 cm Lai Turcios MD Work Phone: [facility] 09-23-2021 16:59-0400 Body weight 69.4 kg Lai Turcios MD Work Phone: [facility] 09-23-2021 16:59-0400 Diastolic blood pressure 60 mm[Hg] Lai Turcios MD Work Phone: [facility] 09-23-2021 16:59-0400 Heart rate 93 /min Lai Turcios MD Work Phone: [facility] 09-23-2021 16:59-0400 SaO2% (BldA) [Mass fraction] 96 % Lai Turcios MD Work Phone: [facility] 09-23-2021 16:59-0400 Systolic blood pressure 102 mm[Hg] Lai Turcios MD Work Phone: [facility] 08-22-2021 15:29-0400 Body temperature 99.19 [degF] Asiya Floreshausen SENIOR HEALTH PHYSICS TECHNICIAN.BASE MANAGER Work Phone: [facility] 08-22-2021 15:29-0400 Body weight 72.12 kg Asiya Teeen SENIOR HEALTH PHYSICS TECHNICIAN.BASE MANAGER Work Phone: [facility] 08-22-2021 15:29-0400 Diastolic blood pressure 82 mm[Hg] Asiya Hawthornehlhausen SENIOR HEALTH PHYSICS TECHNICIAN.BASE MANAGER Work Phone: [facility] 08-22-2021 15:29-0400 Heart rate 78 /min Asiya Dahlhausen SENIOR HEALTH PHYSICS TECHNICIAN.BASE MANAGER Work Phone: [facility] 08-22-2021 15:29-0400 Respiratory rate 18 /min Asiya Dahlhausen SENIOR HEALTH PHYSICS TECHNICIAN.BASE MANAGER Work Phone: [facility] 08-22-2021 15:29-0400 SaO2% (BldA) [Mass fraction] 97 % Asiya Dahlhausen SENIOR HEALTH PHYSICS TECHNICIAN.BASE MANAGER Work Phone: [facility] 08-22-2021 15:29-0400 Systolic blood pressure 128 mm[Hg] Asiya Dahlhausen SENIOR HEALTH PHYSICS TECHNICIAN.BASE MANAGER Work Phone: [facility] 07-11-2021 15:12-0400 Body temperature 99 [degF] Asiya Dahlhausen SENIOR HEALTH PHYSICS TECHNICIAN.BASE MANAGER Work Phone: [facility] 07-11-2021 15:12-0400 Body weight 68.95 kg Asiya Dahlhausen SENIOR HEALTH PHYSICS TECHNICIAN.BASE MANAGER Work Phone: [facility] 07-11-2021 15:12-0400 Diastolic blood pressure 78 mm[Hg] Asiya Dahlhausen SENIOR HEALTH PHYSICS TECHNICIAN.BASE MANAGER Work Phone: [facility] 07-11-2021 15:12-0400 Heart rate 74 /min Asiya Dahlhausen SENIOR HEALTH PHYSICS TECHNICIAN.BASE MANAGER Work Phone: [facility] 07-11-2021 15:12-0400 Respiratory rate 18 /min Asiya Dahlhausen SENIOR HEALTH PHYSICS TECHNICIAN.BASE MANAGER Work Phone: [facility] 07-11-2021 15:12-0400 SaO2% (BldA) [Mass fraction] 98 % Asiya Dahlhausen SENIOR HEALTH PHYSICS TECHNICIAN.BASE MANAGER Work Phone: [facility] 07-11-2021 15:12-0400 Systolic blood pressure 122 mm[Hg] Asiya Dahlhausen SENIOR HEALTH PHYSICS TECHNICIAN.BASE MANAGER Work Phone: [facility] Encounters Encounter Date Encounter Type Care Provider Facility Start: 05-26-2023 Telephone encounter Bobby Broo ks SENIOR HEALTH PHYSICS TECHNICIAN.TRAINING ANALYST Work Phone: [facility] [place] Procedures Date Procedure Procedure Detail Performing Clinician Start: 02-05-2022 INFLUENZA SEASONAL QUADRIVALENT HIGH DOSE AGE 65+ Lai Turcios MD Work Phone: Start: 01-28-2022 Urnls dip stick/tabl et rgnt auto w/o microscopy Ricardo Mcdonald PA-C Work Phone: Start: 09-23-2021 Adult depression scr eening assessment Lai Turcios MD Work Phone: Start: 10-05-2015 Adult depression scr eening assessment Asiya John SENIOR HEALTH PHYSICS TECHNICIAN.BASE MANAGER Work Phone: Start: 09-18-2011 History of coronary artery bypass grafting S/P CABG x 3 Asiya John SENIOR HEALTH PHYSICS TECHNICIAN.BASE MANAGER Work Phone: History of coronary artery bypass grafting S/P CABG x 3 Maria Short [facility] Work Phone: History of coronary artery bypass grafting S/P CABG x 3 Bobby Doherty SENIOR HEALTH PHYSICS TECHNICIAN.TRAINING ANALYST Work Phone: Plan of Treatment Date Care Activity Detail Author Start: 05-13-2024 Annual PCP Team Case Sealer ailyn Disease Visit Annual PCP Team Chronic Disease Visit [facility] Start: 05-13-2024 BP Controlled (<130/80) BP Controlle d (<130/80) [facility] Start: 02-24-2024 BP Controlled (<130/80) BP Controlle d (<130/80) [facility] Start: 01-31-2024 Annual PCP Team Case Sealer ailyn Disease Visit Annual PCP Team Chronic Disease Visit [facility] Start: 01-31-2024 Hemoglobin/Hematocrit Hemoglobin/Hem atocrit [facility] Start: 01-31-2024 Serum Creatinine Serum Creatinine Cl [facility] Start: 11-21-2023 BP CONTROLLED (<130/80) BP CONTROLLE D (<130/80) [facility] Start: 11-11-2023 Hemoglobin A1c measurement HbA1C [facility] Start: 10-15-2023 ANNUAL PCP TEAM PUMPER GAGER AILYN DISEASE VISIT ANNUAL PCP TEAM CHRONIC DISEASE VISIT [facility] Start: 10-15-2023 HEMOGLOBIN/HEMATOCRIT HEMOGLOBIN/HEM ATOCRIT [facility] Start: 10-15-2023 SERUM CREATININE SERUM CREATININE Cl [facility] Start: 08-05-2023 BP CONTROLLED (<130/80) BP CONTROLLE D (<130/80) [facility] Start: 08-01-2023 Hemoglobin A1c/Hemoglobin.total in Blood HbA1C [facility] Start: 06-16-2023 ANNUAL PCP TEAM PUMPER GAGER AILYN DISEASE VISIT ANNUAL PCP TEAM CHRONIC DISEASE VISIT [facility] Start: 06-16-2023 BP CONTROLLED (<130/80) BP CONTROLLE D (<130/80) [facility] Start: 06-06-2023 [facility]: 06-06-[facility]23 SERUM CREATININE SERUM CREATININE [facility] Start: 05-15-2023 BP CONTROLLED (<130/80) BP CONTROLLE D (<130/80) [facility] Start: 04-20-2023 Advance Directive Discussion Advance Directive Discussion [facility] Start: 04-15-2023 Hemoglobin A1c/Hemoglobin.total in Blood HBA1C [facility] Start: 03-24-2023 ANNUAL PCP TEAM PUMPER GAGER AILYN DISEASE VISIT ANNUAL PCP TEAM CHRONIC DISEASE VISIT [facility] Start: 03-24-2023 BP CONTROLLED (<130/80) BP CONTROLLE D (<130/80) [facility] Start: 03-24-2023 COLORECTAL CANCER SCREENING COLORECTAL CANCER SCREENING [facility] Immunizations Immunization Date Immunization Notes Care Provider Cong khan 01-30-2023 influenza (HD-IIV4) vaccine, age 65+ yr, high dose, quadrivalent, PF (FLUZONE HIGH-DOSE) Jeet Alvarez Jr., MD Work Phone: [facility] Work Phone: 02-05-2022 influenza, high-dose , quadrivalent vaccine (FLUZONE HIGH DOSE QUADRIVALENT) Vt Nurse Work Phone: [facility] Work Phone: 02-05-2022 influenza virus vacc ine, unspecified formulation Lai Turcios MD Work Phone: [facility] 02-28-2020 influenza (aIIV4) vaccine, age 65+ yr, quadrivalent, PF (FLUAD QUADRIVALENT) Lai Turcios MD Work Phone: [facility] 02-10-2019 influenza, high dose seasonal, preservative-free Lai Turcios MD Work Phone: [facility] 07-30-2016 pneumococcal polysaccharide vaccine, 23 valent Asiya Daerickhausen SENIOR HEALTH PHYSICS TECHNICIAN.BASE MANAGER Work Phone: [facility] 02-04-2016 influenza, high dose seasonal, preservative-free Asiya Sandrahausen SENIOR HEALTH PHYSICS TECHNICIAN.BASE MANAGER Work Phone: [facility] 10-05-2015 tetanus and diphther ia toxoids, adsorbed, preservative free, for adult use (5 Lf of tetanus toxoid and 2 Lf of diphtheria toxoid) Asiya Floreshauskal SENIOR HEALTH PHYSICS TECHNICIAN.BASE MANAGER Work Phone: [facility] 02-05-2015 influenza, high dose seasonal, preservative-free Asiya Sandrahausen SENIOR HEALTH PHYSICS TECHNICIAN.BASE MANAGER Work Phone: [facility] 03-29-2014 pneumococcal conjuga te vaccine, 13 valent Asiya Sandrahausen SENIOR HEALTH PHYSICS TECHNICIAN.BASE MANAGER Work Phone: [facility] 02-16-2014 influenza, seasonal, injectable Asiya Sandrahausen SENIOR HEALTH PHYSICS TECHNICIAN.BASE MANAGER Work Phone: [facility] 02-01-2013 influenza virus vacc ine, unspecified formulation Asiya Sandrahausen SENIOR HEALTH PHYSICS TECHNICIAN.BASE MANAGER Work Phone: [facility] 02-07-2012 influenza virus vacc ine, unspecified formulation Asiya Daerickhausen SENIOR HEALTH PHYSICS TECHNICIAN.BASE MANAGER Work Phone: [facility] Work Phone: 01-25-2011 influenza virus vacc ine, unspecified formulation Asiya Dahlhausen SENIOR HEALTH PHYSICS TECHNICIAN.BASE MANAGER Work Phone: [facility] Work Phone: 02-01-2010 influenza virus vacc ine, unspecified formulation Asiya Dahlhausen SENIOR HEALTH PHYSICS TECHNICIAN.BASE MANAGER Work Phone: [facility] Work Phone: 02-01-2010 pneumococcal polysaccharide vaccine, 23 valent Asiya John APRN.BASE MANAGER Work Phone: [facility] Work Phone: Payers Date Payer Category Payer Private Health Insurance [id number] 2022 Unknown [id number] 2021 Medicare A[employer] MEDICARE A ETNA MEDICARE HMO [id number] 2021-Present [phone] [address] [place] [address] O [id number] 2021 Medicare [id number] Social History Date Type Detail Facility Start: 05-31-2021 End: 12-12-2021 Tobacco smoking status NHIS Ex-smoker [facility] Work Phone: End: 09-13-2005 History of tobacco use Current smoker [facility] Start: 07-11-2021 End: 05-13-2023 Alcohol intake Current drinker of alcohol (finding) [facility] Start: 02-04-2010 History SDOH Alcohol Comment Very Little [facility] Start: 1945 Sex Assigned At Not on file [facility] Start: 07-01-2021 End: 03-24-2022 Exposure to SARS-CoV-2 (event) Not sure [facility] End: 09-13-2005 History of tobacco use Cigarette Smoker [facility] Start: 05-31-2021 End: 12-12-2021 Tobacco use and exposure Smokeless tobacco non-user [facility] Start: 09-18-2022 End: 10-14-2022 History of Social function [facility] Start: 09-18-2022 End: 10-14-2022 Tobacco use panel [facility] National Score (1-100), lower number is lower risk 70 [facility] Medical Equipment Procedure Code Equipment Code [...] 05/13/2023 office notes to be faxed to [facility] in order to start HH. Advised that office notes are unsigned, [facility] is not able to start until they have signed office notes, once signed please fax [phone] or [phone]. Smita Fox LPN documented in this encounter [facility] 05-26-2023 Miscellaneous Notes noted. Okay for home health care [place] from [facility] calling with PT plan of care, one visit this week, then 2 visits weekly for 2 weeks, then 1 visit weekly for 2 weeks. documented in this encounter [facility] 05-21-2023 Miscellaneous Notes It appears office note was sent 05/19/23 but will fax again to make sure they have it. Has this been sent? Hailey notified, still needing OV signed and faxed when completed. I will follow--I had submitted order for HH recently. I thought HH was already approved this time Hailey with [facility] calls to ask if provider will follow HH orders for PT services. Requests verbal order. Insurance denied previously but will resubmit request. Also, reports that in order to proceed with HH orders would need a copy of the completed OV note from 05/13/2023. Requests a call back at [phone]. Teagan Figueroa, RN Irina from [facility] asking once OV note is complete from 05/13/23 that it be faxed to [phone]. Att: Irina. documented in this encounter [facility] 05-21-2023 Miscellaneous Notes Rx sent. Patient [...] not on current med list. Uses [facility] in [place]. documented in this encounter [facility] 05-13-2023 Note HNO ID: [id number] Author: LAI TURCIOS MD Service: ? Author Type: Physician Type: Progress Notes Filed: 05/19/2023 15:45 Note Text: This note was created using [employer]. Subjective Silva Garcia is a 77 year [...] UTIs. PAST MEDICAL HISTORY Diagnosis Date Acute MA (HCC) 09/18/2011 Contact dermatitis and other eczema, [...] % 02/04/2016 6.5 02/04/2016 Test sent to [facility]. % 10/05/2015 Test sent to [facility]. % 02/02/2015 Test sent to [facility]. % 03/24/2014 Test sent to [facility]. % Component Latest Ref Rng AND Units [...] - 4.00 k/u (more content not included)... [facility] 03-20-2023 Miscellaneous Notes This rx was filled [...] patient. Екатерина Damon documented in this encounter [facility] 03-13-2023 Miscellaneous Notes Addended by: SARA DINERO on: 03/13/2023 01:17 PM Modules accepted: Orders Last office visit: 01/30/23 Next appointment scheduled: 05/13/23 LORazepam (ATIVAN) 0.5 mg 60 tablet 0 12/31/2022 01/30/2023 Sig: Take 1-2 tablets by mouth daily at bedtime for 30 days. Sent to pharmacy as: LORazepam (ATIVAN) 0.5 mg Class: [facility] in [place]. Екатерина Damon documented in this encounter [facility] 02-24-2023 Miscellaneous Notes No answer. 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 Deepthi Palma LPN documented in this encounter [facility] 02-23-2023 Note HNO ID: [id number] Author: Jeet Alvarez Jr., MD Service: ? [...] back up due to a kidney infection. [facility] urology did cystoscopy but there was a [...] some intravenous stuff for 4-5 days at [facility] (appears again treated for UTI with sepsis [...] as much. Denies (more content not included)... [facility] 02-23-2023 Note HNO ID: [id number] Author: Ronel Chambers LPN Service: ? Author Type: LICENSED NURSE Type: Progress Notes Filed: 02/23/2023 4:40 PM Note Text: There is no data to display for this encounter [facility] 02-23-2023 History of Presen t illness Narrative ESTABLISHED PATIENT VISIT CHIEF COMPLAINT: Follow Up HISTORY OF PRESENT ILLNESS: Silva Garcia is a 77 year old female, BMI 23.97 kg/m2 with a PMH significant for and per last office visit with Maged John CNP on 11/20/22: G20 Parkinson's disease (HCC) (primary encounter diagnosis) R26.9 Abnormality of gait F03.90 Dementia without behavioral disturbance ([facility]) Comment: Patient previously presenting to office for [...] some intravenous stuff for 4-5 days at [facility] (appears again treated for UTI with sepsis [...] feels weak. Pt denies hallucinations, but [facility]... sometimes she comes off [...] Orientation: February, Thu (it is Thursday), 2022; [place], [place]; [facility] Number repeat and sentence repeat intact. [...] HISTORIES PAST MEDICAL HISTORY Diagnosis Date Acute MA (HCC) 09/18/2011 Contact dermatitis and other eczema, [...] the date of the service which included [id number] patient care, completing clinical documentation, obtaining and/or reviewing separately obtained history, performing a medically appropriate examination, counseling and educating the patient/family/caregiver, ordering medications, tests, or procedures, communicating with other HCPs (not separately reported), and communicating results to the patient/family/caregiver. There is no data to display for this encounter documented in this encounter [facility] 01-30-2023 Note HNO ID: [id number] Author: Sara Dinero APRN.BASE MANAGER Service: ? Author Type: Nurse Practitioner Type: Progress Notes Filed: 02/02/2023 7:08 AM Note Text: SUBJECTIVE Silva Garcia is a 77 year old female here today for a check up on her medical problems. Chief Complaint Patient presents with: Hospital F/U: [facility] follow up on going issues for kidney infection F/U 3 Month HPI Silva Garcia is a 77 year old female established patient. Here today accompanied by her for a hospital discharge follow up. She is not very verbal and he answers the majority of the questions with the visit today. She was admitted to [facility] 01/17-01/22. No out reach was done by [...] rate and re (more content not included)... [facility] 01-06-2023 Note HNO ID: [id number] Author: Bobby Doherty APRN.TRAINING ANALYST Service: ? Author Type: Nurse Specialist Type: Progress Notes Filed: 01/06/2023 3:11 PM Note Text: Admitted to [facility] December 21 through December 25 for cystitis. [...] close follow-up with urology to address hydronephrosis. [facility] 01-06-2023 History of Presen t illness Narrative Admitted to [facility] December 21 through December 25 for cystitis. [...] to address hydronephrosis. documented in this encounter [facility] 01-06-2023 Miscellaneous Notes Home care Certification Form 485 received from [facility]. For cert dates 12/09/2022-02/06/2023 that were signed on 12/16/2022. New Certification Patient's home health 485 form / care plan for stated certification period reviewed and signed. Relevant medical records were reviewed. No changes were indicated documented in this encounter [facility] 01-02-2023 Miscellaneous Notes Noted and agree [place] PT calling from [facility] to report plan of care for patient and physical therapy will visit patient 1 time a week for 6 weeks. No call back need unless provider has questions. Edie Velez, RN documented in this encounter [facility] 12-31-2022 Miscellaneous Notes The following approved [...] on refill list. documented in this encounter [facility] 12-29-2022 Miscellaneous Notes Francis aware of same. Will follow Noted: Has 01/06 hospital follow up with Bobby--can decide at that appointment whether needs the one the following week with Bobby. has the next follow up already set up with me. Francis with [facility] calls to ask if provider will continue following orders for SN, PT, and HH aide following discharge from [facility] for treatment for UTI and sepsis. Francis requests call back at [phone]. Teagan Figueroa, RN documented in this encounter [facility] 12-15-2022 Miscellaneous Notes Di/HH notified. Smita Fox LPN Phoned Di and left message to return call and ask to speak to a triage nurse. [place] [facility] requests Di from [facility] asking if pcp will approve nursing & home health aid? Pt has wounds that need addressed. Shirley Fitzgerald LPN documented in this encounter [facility] 12-09-2022 Miscellaneous Notes [place] aware of same. Okay for home health care PT plan. Okay for nurse evaluation of wound [place] from [facility] PT reports plan of care will be [...] if they receive the ok in time. [phone]. Shirley Fitzgerald LPN documented in this encounter [facility] 12-08-2022 Miscellaneous Notes Spoke with [facility] and gave her providers message and verbalized understanding. She states that she originally called Asiya John nurse for order to follow but her nurse said she didn't think she would be able to do that as she is not at the facility she is having the PT done. Patient was originally going to go to [facility] but they were told she was too far away so was set up with [facility]. Since Dr. Turcios is going to be follow up PT she will need face to face appt with provider, she will give patient the message to schedule something sooner the 01/12/23 appt with Sara Dinero. Would assume Mariann John CNP will follow since she ordered it, but if not OK for PCP to follow. Marcia [facility]- reports she received an order from Asiya John, for patient to have PT HHC. Asking if pcp is going to follow for PT HHC? Please let Hailey know. documented in this encounter [facility] 12-05-2022 Miscellaneous Notes TC to [facility] in [place] at [phone]. Faxed orders and office notes and insurance information to [phone] for them to run insurance. Ronel Chambers LPN Thank you for the referral of your patient to [facility]. At this time, we are at capacity and are unable to accept your patient. In order to help your patient receive quality home care, we have included reputable agencies that service this area: [facility], Phone number [phone] or [facility], phone number [phone]. Please contact this agency and they will work with your patient to arrange timely services. Thank you, Kaylee Conklin LPN 12/05/2022 8:31 AM documented in this encounter [facility] 11-26-2022 Miscellaneous Notes 1st attempt left message to return call to schedule consult to spine medicine Spoke with [facility] at [phone] and they will reach out to the patient to schedule. However current order needs to be consult to [facility] at Home Care and be specific at what services you are requesting like PT, OT, or speech therapy ect... Please contact patient and assist in scheduling with Spine medicine as well as [facility] (PT). Thank you! ANGELICA Pérez ----- Message from Asiya John APRN.BASE MANAGER sent at 11/24/2022 11:59 AM EDT ----- Order for home care (PT) has been placed. Please assist with setting up. Also, previously discussed pt should see spine medicine. New consult was placed and would encourage her to schedule appt when you call to notify pt about home care. Thank you! documented in this encounter [facility] 11-20-2022 Note HNO ID: [id number] Author: Asiya John APRN.HECTOR Service: ? Author Type: Nurse Practitioner Type: Progress Notes Filed: 11/24/2022 12:01 PM Note Text: [facility] [place] Follow-up Visit Follow-up note November 20, 2022 HPI: Ms. Garcia presents today for a follow-up visit. Per her previous visit on 05/15/22: G20 Parkinson's disease (HCC) (primary encounter diagnosis) R26.9 Abnormality of gait F03.90 Dementia without behavioral disturbance ([facility]) Comment: Patient previously presenting to office for [...] out. Denies hallucinations (more content not included)... [facility] 11-20-2022 History of Presen t illness Narrative Images from the original note were not included. [facility] [place] Follow-up Visit Follow-up note November 20, 2022 HPI: Ms. Garcia presents today for a follow-up visit. Per her previous visit on 05/15/22: G20 Parkinson's disease (HCC) (primary encounter diagnosis) R26.9 Abnormality of gait F03.90 Dementia without behavioral disturbance ([facility]) Comment: Patient previously presenting to office for [...] was unable to get up. Taken to [place] ED where CT brain was completed and [...] 2 (0-1) (0/1) Serial subtraction by 7: [id number] (3 points for correct 4 or 5; [...] N PAST MEDICAL HISTORY Diagnosis Date Acute MA (HCC) 09/18/2011 Contact dermatitis and other eczema, [...] Abs Lymph 1.00 - 4.00 k/uL 1.84 [place]% % 5.4 Abs [place] <0.87 k/uL 0.71 Eosin% % 0.8 Abs [...] which included preparing to see the patient, [id number] patient care, completing clinical documentation, obtaining and/or reviewing separately obtained history, performing a medically appropriate examination, counseling and educating the patient/family/caregiver, and ordering medications, tests, or procedures. 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 Patient has been identified by name and birthdate. Duration of symptoms: Person calling: self Call patient at: on cell [phone] (home) [phone] (cell) Was an appointment scheduled: No Closing statement: Results or non-symptom based questions: Thank you for calling [facility], your call will be returned within the next business day. Dorina Child Pss documented in this encounter [facility] 10-22-2022 Miscellaneous Notes Pt's spouse notified. [...] provider to fill this medication. [employer] phone [phone] Patient advised to call [facility] as well Patient has been identified by name and birthdate. Duration of symptoms: ongoing Person calling: spouse: Jeet Call patient at: on cell [phone] (home) [phone] (cell) Was an appointment scheduled: No Closing statement: Prior Authorization Calls: Thank you for calling [facility], your call will be returned within the next 24 hours or next business day. Ana Ramachandransec Rec'd covermymed PA for risperidone 0.5mg. called the pharmacy and pt paid out of pocket with a discount card. It was 14$. PA completed. SILVA GARCIA Almendarez: [id number] - PA - Rx #: [id number] help? Call us at Status Sent to [facility] risperiDONE 0.5MG tablets Form [employer] Electronic PA Form Original Claim Info [id number]: Patient appeal noticerequired by CMS. For [employer] Coupon Pena of: $20.65 submit to BIN: [id number] PCN: CP Group: [id number] --Service provided at no cost and no switch fee to the pharmacy-- documented in this encounter [facility] 10-16-2022 Miscellaneous Notes No answer. Left providers message and ask patient to call with any questions or concerns. Daniel. Please call patient and let them know recent labs looked stable. No changes needed at this time and to keep next scheduled appointment. Thanks. documented in this encounter [facility] 10-14-2022 Note HNO ID: [id number] Author: Sara Dinero APRN.HECTOR Service: ? Author [...] right ureter. CKD stable. She was in [facility] for a procedure the end of August 22. Dr. 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 OBJ (more content not included)... [facility] 10-14-2022 History of Presen t illness Narrative [...] right ureter. CKD stable. 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 Comments: Provider assisted patient to aluminum pourer front of wheel chair to visualize area [...] which included preparing to see the patient, klun-me-exmg patient care, completing clinical documentation, obtaining and/or [...] able. JANET Luna documented in this encounter [facility] documented as of this encounter (statuses as of 02/24/2023) [facility]23 History of Past illness Narrative* Problem Noted Date Diagnosed Date Resolved Date Acute psychosis 10/14/2022 01/30/2023 Seborrhea 10/30/2012 07/30/2016 Sprain and strain of unspeci fied site of shoulder and upper arm 07/29/2012 07/30/2016 Pain in joint, shoulder region 07/29/2012 07/30/2016 Acute MA 09/18/2011 06/06/2016 DM w/o Complication Type II 01/08/2010 02/05/2015 Fatigue 01/08/2010 06/06/2016 Contact dermatitis and other eczema, due to unspecified cause 07/30/2016 Esophageal reflux 07/30/2016 documented as of this encounter (statuses as of 02/25/2023) [facility] History of Past illness Narrative* Problem Noted Date Diagnosed Date Resolved Date Acute psychosis 10/14/2022 01/30/2023 Seborrhea 10/30/2012 07/30/2016 Sprain and strain of unspeci fied site of shoulder and upper arm 07/29/2012 07/30/2016 Pain in joint, shoulder region 07/29/2012 07/30/2016 Acute MA 09/18/2011 06/06/2016 DM w/o Complication Type II 01/08/2010 02/05/2015 Fatigue 01/08/2010 06/06/2016 Contact dermatitis and other eczema, due to unspecified cause 07/30/2016 Esophageal reflux 07/30/2016 documented as of this encounter (statuses as of 03/13/2023) [facility] History of Past illness Narrative* Problem Noted Date Diagnosed Date Resolved Date Acute psychosis 10/14/2022 01/30/2023 Seborrhea 10/30/2012 07/30/2016 Sprain and strain of unspeci fied site of shoulder and upper arm 07/29/2012 07/30/2016 Pain in joint, shoulder region 07/29/2012 07/30/2016 Acute MA 09/18/2011 06/06/2016 DM w/o Complication Type II 01/08/2010 02/05/2015 Fatigue 01/08/2010 06/06/2016 Contact dermatitis and other eczema, due to unspecified cause 07/30/2016 Esophageal reflux 07/30/2016 documented as of this encounter (statuses as of 03/20/2023) [facility] History of Past illness Narrative* Problem Noted Date Diagnosed Date Resolved Date Chronic renal disease, stage IV 10/14/2022 05/19/2023 Acute psychosis 10/14/2022 01/30/2023 Seborrhea 10/30/2012 07/30/2016 Sprain and strain of unspeci fied site of shoulder and upper arm 07/29/2012 07/30/2016 Pain in joint, shoulder region 07/29/2012 07/30/2016 Acute MA 09/18/2011 06/06/2016 DM w/o Complication Type II 01/08/2010 02/05/2015 Fatigue 01/08/2010 06/06/2016 Contact dermatitis and other eczema, due to unspecified cause 07/30/2016 Esophageal reflux 07/30/2016 documented as of this encounter (statuses as of 05/22/2023) [facility] History of Past illness Narrative* Problem Noted Date Diagnosed Date Resolved Date Chronic renal disease, stage IV 10/14/2022 05/19/2023 Acute psychosis 10/14/2022 01/30/2023 Seborrhea 10/30/2012 07/30/2016 Sprain and strain of unspeci fied site of shoulder and upper arm 07/29/2012 07/30/2016 Pain in joint, shoulder region 07/29/2012 07/30/2016 Acute MA 09/18/2011 06/06/2016 DM w/o Complication Type II 01/08/2010 02/05/2015 Fatigue 01/08/2010 06/06/2016 Contact dermatitis and other eczema, due to unspecified cause 07/30/2016 Esophageal reflux 07/30/2016 documented as of this encounter (statuses as of 05/22/2023) [facility] History of Past illness Narrative* Problem Noted Date Diagnosed Date Resolved Date Chronic renal disease, stage IV 10/14/2022 05/19/2023 Acute psychosis 10/14/2022 01/30/2023 Seborrhea 10/30/2012 07/30/2016 Sprain and strain of unspeci fied site of shoulder and upper arm 07/29/2012 07/30/2016 Pain in joint, shoulder region 07/29/2012 07/30/2016 Acute MA 09/18/2011 06/06/2016 DM w/o Complication Type II 01/08/2010 02/05/2015 Fatigue 01/08/2010 06/06/2016 Contact dermatitis and other eczema, due to unspecified cause 07/30/2016 Esophageal reflux 07/30/2016 documented as of this encounter (statuses as of 05/27/2023) [facility] History of Past illness Narrative* Problem Noted Date Diagnosed Date Resolved Date Chronic renal disease, stage IV 10/14/2022 05/19/2023 Acute psychosis 10/14/2022 01/30/2023 Seborrhea 10/30/2012 07/30/2016 Sprain and strain of unspeci fied site of shoulder and upper arm 07/29/2012 07/30/2016 Pain in joint, shoulder region 07/29/2012 07/30/2016 Acute MA 09/18/2011 06/06/2016 DM w/o Complication Type II 01/08/2010 02/05/2015 Fatigue 01/08/2010 06/06/2016 Contact dermatitis and other eczema, due to unspecified cause 07/30/2016 Esophageal reflux 07/30/2016 documented as of this encounter (statuses as of 05/28/2023) [facility] Miscellaneous Notes* Telephone Encounter - Melissa [...] Melissa De La Rosa documented in this encounterVan [facility] Miscellaneous Notes* Telephone Encounter - Sara Dinero APRN.HECTOR - 08/25/2022 11:37 AM EDT [facility] website checked and validated. All [...] refill list. Confirmed pharmacy. documented in [facility] Miscellaneous Notes* Telephone Encounter - Griselda Cowan LPN - 08/15/2022 2:16 PM EDT Last seen [facility] 08/04/22. Next appt with [facility]ATER 10/14/22 * Telephone Encounter - Elvira Wellington - 08/15/2022 12:19 PM EDT PATIENT REQUESTING QTY 120 TAKES TWICE DAILY. Patient phones requesting refills as follows: Requested Prescriptions Pending Prescriptions Disp Refills metoprolol tartrate, short acting, (LOPRESSOR) 25 mg tablet 180 tablet 3 Sig: Take 1 tablet by mouth twice daily. Please review and advise. Elvira Wellington documented in this encounterVan [facility]04-[facility]-2023 NoteHNO ID: [id number] Author: Chela Goff MA Service: ? Author Type: Conference Manager Type: Progress Notes Filed: 08/04/2022 5:27 PM [...] is to keep Shauna appointment. Chela Goff, [facility]04-17-2023 NoteHNO ID: [id number] Author: Bobby Doherty APRN.TRAINING ANALYST Service: ? Author Type: Nurse Specialist Type: [...] by PCP 08/14/2022 following hospital visit at [facility] for hydroureteronephrosis, obstruction right ureter. She was [...] neurology, last seen 04/2022 by Asiya John APRN.BASE MANAGER for Parkinsons, abnormality of gait and dementia [...] % 02/04/2016 6.5 02/04/2016 Test sent to [facility]. % ) HTN: Without report of headache, chest pain, palpitations, dyspnea, peripheral edema, orthopnea, and PND. Last 3 Encounter BP Readings: Date: BP: 06/16/2022 104/68 05/15/2022 100/66 03/24/2022 108/62 Hypothyroidism. Last filled by Jeni Estrella DO, no longer. TSH Date Value 03/24/2022 1.380 mIU/L 10/05/2021 1.390 mIU/L 02/02/2015 Test sent to [facility]. uU/mL 10/25/2012 2.740 uU/mL ) Review of [...] Rollator losartan (COZAAR) 5 (more content not included)...[facility] 08-04-2022 History of Present illness Narrative* Chela [...] appointment. Chela Goff MA * Bobby Doherty APRN.TRAINING ANALYST - 08/04/2022 3:00 PM EDT SUBJECTIVE: DILATED [...] by PCP 08/14/2022 following hospital visit at [facility] for hydroureteronephrosis, obstruction right ureter. She was [...] neurology, last seen 04/2022 by Asiya John APRN.BASE MANAGER for Parkinsons, abnormalityof gait and dementia without [...] % 02/04/2016 6.5 02/04/2016 Test sent to [facility]. % ) HTN: Without report of headache, chest pain, palpitations, dyspnea, peripheral edema, orthopnea, and PND. Last 3 Encounter BP Readings: Date: BP: 06/16/2022 104/68 05/15/2022 100/66 03/24/2022 108/62 Hypothyroidism. Last filled by Jeni Estrella DO, no longer. TSH Date Value 03/24/2022 1.380 mIU/L 10/05/2021 1.390 mIU/L 02/02/2015 Test sent to [facility]. uU/mL 10/25/2012 2.740 uU/mL ) Review of [...] bedtime. PAST MEDICAL HISTORY Diagnosis Date Acute MA (HCC) 09/18/2011 Contact dermatitis and other eczema, [...] 0.96 mg/dL Final 02/04/2016 Test sent to [facility]. 0.58 - 0.96 mg/dL Final Comment: Account [...] Level: 4 - Moderate documented in [facility] Instructions* Patient Instructions* Bobby Doherty APRN.CNS [...] sores if not improving documented in this encounterVan [facility]03[facility] Miscellaneous Notes* Telephone Encounter - Kasandra Cerda Pss - 07/16/2022 9:34 AM EDT Pharmacy verified in [facility] Patient has been identified by name and [...] advise. Kasandra Cerda Pss documented in this encounterVan [facility]02-28-[facility]23 Miscellaneous Notes* Telephone Encounter - Griselda [...] notify patient. Екатерина Damon documented in this encounterVan [facility]02-27-2023 NoteHNO ID: [id number] Author: Lai Turcios MD Service: ? Author Type: Physician Type: Progress Notes Filed: 06/16/2022 4:03 PM Note Text: This note was created using NoteWriter. Subjective Silva Cabbell is a 77 year old female. No chief complaint on file. SUBJECTIVE: Silva Garcia is a 77 year old year old lady here today for [facility] hospital follow up appointment for review of medical conditions. Reviewed hospital records. Dr. Ramirez following for hydronephrosis. Stent was placed at this hospital. 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 Was referred to [place] provider but prefers to stay on area. Still taking losartan--did not see instructions to hold Does ahve symptoms of low BP Does not have HHN yet since going through their insurance. Glucerna one in AM PAST MEDICAL HISTORY Diagnosis Date Acute MA (HCC) 09/18/2011 Contact dermatitis and other eczema, [...] talking but she answers our questions appropriately. [facility] Medical Records Department [address] [place] [address] Operative Report 06/12/22822 MR#: [id number] Acct: [id number] Name: SILVA GARCIA Rep #:[id number] : 1945 77 From: Sanam Silva PCP: Dr. Lai Turcios MD Status:[facility] Location: [place] [address] Problems Associated Problem List Diagnoses (1) Hydroureteronephrosis: Report of Operation Date of Procedure: 06/12/22 Pre-Operative Diagnosis: Right hydroureteronephrosis Post-Operative Diagnosis: Same, distal ureteral o (more content not included)... [facility]02-27-2023 Instructions* Patient Instructions* Lai Turcios MD - 06/16/2022 2:43 PM EST Images from the original note were not included. Chago Newby APRN.BASE MANAGER You; Liset Ziegler MD 9 minutes ago (2:55 PM) Per our urology schedulers, Dr. Lopez and Dr. Perla see patients in [place]. Dr. José sees patients at our [facility] location in [place]. Hope that helps! Chago Stop the losartan and either come back for BP check in 2 to 4 weeks unless have BP checked elsewhere for follow up appointment and BP is fine. BP check with nurse practitioner. Check with your insurance for Home Health for Wound Care. documented in this encounterVan [facility]02-27-[facility]23 History of Present illness Narrative* Lai Turcios MD - 06/16/2022 1:54 PM EST Images from the original note were not included. This note was created using NoteWriter. Subjective Silva Garcia is a 77 year old female. No chief complaint on file. SUBJECTIVE: Silva Garcia is a 77 year old year old lady here today for [facility] hospital follow up appointment forreview of medical conditions. Reviewed hospital records. Dr. Ramirez following for hydronephrosis. Stent was placed at this hospital. 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 Was referred to [place] provider but prefers to stay on area. Still taking losartan--did not see instructions to hold Does ahve symptoms of low BP Does not have HHN yet since going through their insurance. Glucerna one in AM PAST MEDICAL HISTORY Diagnosis Date Acute MA (HCC) 09/18/2011 Contact dermatitis and other eczema, [...] talking but she answers our questions appropriately. [facility] Medical Records Department [address] [place] [address] Operative Report 06/12/22 0823 MR#: [id number] Acct: [id number] Name: SILVA GARCIA Rep #:[id number] : 1945 77 From: Sanam Silva PCP: Dr. Lai Turcios MD Status:[facility] Location: [place] [address] Problems Associated Problem List Diagnoses (1) Hydroureteronephrosis: [...] was identified and removed. Using an 8 Korean cone-tip catheter,a retrograde pyelogram was performed under [...] ICD10: L89.159 Dressing placed by 05/30 at [facility] with no wound care instructions. Dressing is [...] management. Lai Turcios MD documented in this encounterVan Wert County Hospital02-24-2023 Miscellaneous Notes* Telephone Encounter - Brittany Hernández RN - 06/13/2022 3:06 PM EST Images from the original note were not included. Called Jeet regarding Silva Verified name and Relayed message below Phone number at [place] was provided Advised appt with Dr. Ziegler will be cancelled Brittany Newby APRN.BASE MANAGER You; Liset Ziegler MD 9 minutes ago (2:55 PM) Per our urology schedulers, Dr. Lopez and Dr. Perla see patients in [place]. Dr. José sees patients at our [facility] location in [place]. Hope that helps! Chago * Telephone Encounter [...] get it resolved Other MD recommendation in [place] who will be able to assist her [...] was identified and removed. Using an 8 Korean cone-tip catheter,a retrograde pyelogram was performed under [...] that will require another procedure. Please advise: [phone] Crystal Caceres documented in this encounterVan Wert County Hospital02-24-2023 Miscellaneous Notes* Telephone Encounter - Pamella [...] as well as a letter from property consultant explaining is at nurse pod for review. [...] completed. * Telephone Encounter - Bobby Doherty APRN.TRAINING ANALYST - 05/22/2022 3:00 PM EST Printed * Telephone Encounter - Kym Bolden LPN - 05/22/2022 2:40 PM EST Patient's dropped off [employer] form and stated patient need handicap placard renewed. Form at nurses desk. When letter is completed call patient and give him both the letter and BMV form back. documented in this encounterVan Wert County Hospital02-20-2023 Miscellaneous Notes* Telephone Encounter - Kym [...] patient. Екатерина Louie Pss documented in this encounterVan Wert County Hospital02-15-2023 Miscellaneous Notes* Telephone Encounter - Kasandra [...] advise. Kasandra Cerda Pss documented in this encounterVan Wert County Hospital02-06-2023 Miscellaneous Notes* Telephone Encounter - Pamella Hodges LPN - 05/26/2022 1:36 PM EST Patients aware forms in medical records to fruit picker machine operator and letter for handicap placard being sent in the mail. Pamella Hodges LPN * Telephone Encounter - Pamella Hodges LPN - 05/26/2022 12:07 PM EST Took Forms down to Medical records for patients to fruit picker machine operator. Attempted again to reach patient's and recording again stating customer not available. Pamella Hodges LPN * Telephone Encounter - Pamella Hodges LPN - 05/26/2022 9:08 AM EST Attempted to reach patient's , recording states the customer is not available. Unable to leave a message. Pamella Hodges LPN * Telephone Encounter - Lai Turcios MD - 05/22/2022 6:11 PM EST Noted * Telephone Encounter - Kym Bolden LPN - 05/22/2022 2:43 PM EST Patient's dropped off form from [employer] to be completed by Dr. Turcios so patient can receive a shower chair in her apartment. Once completed please call patients for fruit picker machine operator documented in this encounterVan Wert County Hospital01-26-2023 History of Present illness Narrative* Asiya John APRN.BASE MANAGER - 05/15/2022 4:30 PM EST Images from the original note were not included. [facility] [place] Follow-up Visit Follow-up note May 15, 2022 [...] complication, without long-term current use of insulin ([facility]) Comment: Chronic L basal ganglia infarcts on [...] will be seeing urology. Has appointment in [place]. Back pain is a little better. Has [...] Words, up to 2 trials: Face, Velvet, Buddhism, Timoteo, Red (no points) 4/5 first try, 4/5 second try Attention forwards: 2 1 8 5 4 (0-1) (04/20) Attention backwards: 7 4 2 (0-1) (04/20) Serial subtraction by 7: [phone] (3 points for correct 4 or 5; [...] (2/2) Delayed recall: recall words: face, velvet, muslim, timoteo, red (0-5) got red and muslim with clue (3/5) Orientation: date(1), month(1), year(1), day(1), place(1), city(1) max 6 points (4/6) Level of education: add 1 if did not receive more than a HS education +1 Total Score max 29 (17) Hearing impaired (Y or N) Y Vision impaired (Y or N) N PAST MEDICAL HISTORY Diagnosis Date Acute MA (HCC) 09/18/2011 Contact dermatitis and other eczema, [...] which included preparing to see the patient, [id number] patient care, completing clinical documentation, obtaining and/or reviewing separately obtained history, performing a medically appropriate examination, and counseling and educating the patient/family/caregiver. documented in this encounterVan Wert County Hospital01-11-2023 Miscellaneous Notes* Telephone Encounter - Dasha [...] drink enough fluids daily). documented in this encounterVan Wert County Hospital12-19-2022 Miscellaneous Notes* Telephone Encounter - Irina [...] patient. Chela Zepeda Pss documented in this encounterVan Wert County Hospital12-05-2022 Instructions* Patient Instructions* Lai Turcios MD - 03/24/2022 11:49 AM EST Consider trial of scheduled toileting every 3 hours during the day (okay to sleep through the night). documented in this encounterVan Wert County Hospital12-05-2022 History of Present illness Narrative* Lai Turcios MD - 03/24/2022 10:40 AM EST This note was created using CompassMed[employer]. Subjective Silva Garcia is a 76 year [...] instasbilty PAST MEDICAL HISTORY Diagnosis Date Acute MA (HCC) 09/18/2011 Contact dermatitis and other eczema, [...] lipids. Lai Turcios MD documented in this encounterVan Wert County Hospital11-22-2022 Miscellaneous Notes* Telephone Encounter - Sara [...] 60 ordered. Please sent to [facility] in [place]. documented in this encounterVan Wert County Hospital10-31-2022 Miscellaneous Notes* Telephone Encounter - Deepthi Sandoval - 02/17/2022 4:18 PM EDT Pt's notified and verbalizes understanding. [place] was scheduled due to [employer] Trainer specialty. Deepthi Sandoval * Telephone Encounter - Deepthi Sandoval - 02/17/2022 12:20 PM EDT Lab order is in place. Ricardo, does pt need to go to [place] B[place] or can she come here to our [place] site? Please review and advise. Deepthi Sandoval MA * Telephone Encounter - Griselda Cowan LPN - 02/14/2022 3:26 PM EDT Spouse can to pcp office. 1.Pt spouse can in to get container for another urine check. Lab reports order is needed. 2. Spouse has question as to why pt needs chief quality officer in [place]? Isn't [facility] chief quality officer able to see here in [place]? Call spouse with info. documented in this [facility]10-25-2022 Miscellaneous Notes* Telephone Encounter - Aidee [...] patient. Aidee Del Rio documented in this [facility]10-24-2022 Miscellaneous Notes* Telephone Encounter - Josiane Villalta LPN - 02/10/2022 10:54 AM EDT Called patient- answered phone. Verified name and date of of patient. Reminded of need for culture. Verbalizes understanding. Josiane Villalta LPN * Telephone Encounter - Jsoiane Villalta LPN - 02/07/2022 4:24 PM EDT Called patient. No answer- left message. Message for patient- reminder of need for urine for culture. Has not been collected as of today. Josiane Villalta LPN documented in this encounterVan Wert County Hospital10-13-2022 Miscellaneous Notes* Telephone Encounter - Josiane Villalta LPN - 01/30/2022 11:28 AM EDT Patient , Jeet called. Verified name and date of of patient. States he received a call from someone at [facility] and informed of encounter message and provided number to call prior to transferring call. Josiane Villalta LPN documented in this encounterVan Wert County Hospital10-11-2022 History of Present illness Narrative* Ricardo Mcdonald PA-C - 01/28/2022 5:33 PM EDT Images from the original note were not included. [facility] NEW PATIENT CLINIC NOTE [...] Value 10/05/2021 39.3 10/05/2015 Test sent to [facility]. 02/02/2015 Test sent to [facility]. 10/25/2012 39.6 MEDICATIONS: solifenacin (VESICARE) 5 mg [...] HISTORY: PAST MEDICAL HISTORY Diagnosis Date Acute MA (HCC) 09/18/2011 Contact dermatitis and other eczema, [...] Plan: Appointment with Ricardo. documented in this encounterVan Wert County Hospital10-06-2022 History of Present illness Narrative* Ronel [...] 23, 2022 4:27 PM documented in this encounterVan Wert County Hospital09-27-2022 History of Present illness Narrative* Bobby Doherty APRN.TRAINING ANALYST - 01/14/2022 4:13 PM EDT SUBJECTIVE: SHINGRIX [...] reported) PAST MEDICAL HISTORY Diagnosis Date Acute MA (HCC) 09/18/2011 Contact dermatitis and other eczema, [...] Vesicare. If working well recommend mail order correction script, should be low cost per EPIC review. - CONSULT TO UROLOGY - PELVIS BLADDER Bobby Doherty APRN.TRAINING ANALYST Medical Decision Making: Problems: Moderate: New problem with uncertain prognosis Risk: Moderate: Drug management Medical Decision Making Level: 4 - Moderate documented in this encounterVan Wert County Hospital09-14-2022 Miscellaneous Notes* Telephone Encounter - Griselda [...] so may do before March appointment so systems mgr discuss during appointment documented in this encounterVan Wert County Hospital08-25-2022 History of Present illness Narrative* Asiya John APRN.BASE MANAGER - 12/12/2021 4:30 PM EDT Images from the original note were not included. 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 Considering [...] Words, up to 2 trials: Face, Velvet, Buddhism, Timoteo, Red (no points) 4/5 first try, 4/5 second try Attention forwards: 2 1 8 5 4 (0-1) (04/20) Attention backwards: 7 4 2 (0-1) (04/20) Serial subtraction by 7: [id number] (3 points for correct 4 or 5; 2 points for 2 or 3 correct; 1 point for 1 correct) [phone]- (0/3) Language: repeat: I only know that [...] (2/2) Delayed recall: recall words: face, velvet, muslim, timoteo, red (0-5) got velvet with cat clue (4/5) Orientation: date(1), month(1), year(1), day(1), place(1), city(1) max 6 points (4/6) Level of education: add 1 if did not receive more than a HS education +1 Total Score max 24 (15) Hearing impaired (Y or N) Y Vision impaired (Y or N) N PAST MEDICAL HISTORY Diagnosis Date Acute MA (HCC) 09/18/2011 Contact dermatitis and other eczema, [...] complication, without long-term current use of insulin ([facility]) Comment: Chronic L basal ganglia infarcts on [...] which included preparing to see the patient, [id number] patient care, completing clinical documentation, obtaining and/or reviewing separately obtained history, performing a medically appropriate examination, counseling and educating the pat ient/family/caregiver, and ordering medications, tests, or procedures. documented in this encounterVan Wert County Hospital07-29-2022 Miscellaneous Notes* Telephone Encounter - Diana Leos Pss - 11/15/2021 12:26 PM EDT FYI Received fax from [facility]. The patient's insurance hasn't approved and the patient is aware. documented in this encounterVan Wert County Hospital07-26-2022 Miscellaneous Notes* Telephone Encounter - Lai [...] patients meds need to be sent to [facility]. States the only one he needs right now is the ditropan. Last ov with pcp: 09-23-21. documented in this encounterVan Wert County Hospital06-28-2022 Miscellaneous Notes* Telephone Encounter - Diana Leos Pss - 10/15/2021 8:51 AM EDT Received home care order by fax from [facility]. Placed form in provider's in box for signature. documented in this encounterVan Wert County Hospital06-15-2022 Miscellaneous Notes* Telephone Encounter - Luma Hernandez RN - 10/02/2021 7:06 PM EDT Left message for patient's that scripts werecsent to [facility] and call back with any questions. Luma [...] (mg/dL) Date Value 02/04/2016 Test sent to [facility]. Sodium (mmol/L) Date Value 02/04/2016 Test sent to [facility]. Last 1 Encounter BP Readings: Date: BP: 09/23/2021 102/60 Liver Function: ALT (U/L) Date Value 10/05/2015 Test sent to [facility]. AST (U/L) Date Value 10/05/2015 Test sent to [facility]. Please advise. Thank you. Teagan Figueroa RN documented in this encounterVan Wert County Hospital06-14-2022 Miscellaneous Notes* Telephone Encounter - LAN Pérez - 10/01/2021 4:13 PM EDT Order for Rollator printed and faxed to [facility] at [phone] per patients request. LAN Pérez * Telephone Encounter - Edie Velez RN - 10/01/2021 4:04 PM EDT Patient's calling and asking if script for Rollator can be printed and faxed over to [facility] [phone]. Edie Velez RN documented in this encounterVan Wert County Hospital06-13-2022 Miscellaneous Notes* Telephone Encounter - Lai [...] Noon, 4PM). STU: No Authorizing Provider: LAI TURCIOS [email or web address] [...] mouth daily at bedtime for 90 days. DMAON Class: C-IV STU: No Authorizing Provider: LAI [...] MD * Telephone Encounter - Maria Short [facility] - 09/27/2021 2:40 PM EDT [...] Short PharmD, BCACP Primary Care Clinical Pharmacist [facility] * Telephone Encounter - Maria Short [...] HBA1C 6.5 02/04/2016 HBA1C Test sent to [facility]. 02/04/2016 HBA1C Test sent to [facility]. 10/05/2015 CMP: Glucose Value: Test sent to [facility]. 02/04/2016 BUN Value: Test sent to [facility]. 02/04/2016 Creatinine Value: Test sent to [facility]. 02/04/2016 Sodium Value: Test sent to [facility]. 02/04/2016 Potassium Value: Test sent to [facility]. 02/04/2016 Albumin Value: Test sent to [facility]. 10/05/2015 Calcium Value: Test sent to [facility]. 02/04/2016 AST Value: Test sent to [facility]. 10/05/2015 ALT Value: Test sent to [facility]. 10/05/2015 Lab Results Component Value Date CHOL 136 07/20/2021 CHOL Test sent to [facility]. 10/05/2015 LDL 57 07/20/2021 LDL Test sent to [facility]. 10/05/2015 HDL 55 07/20/2021 HDL Test sent to [facility]. 10/05/2015 TG 119 07/20/2021 TG Test sent to [facility]. 10/05/2015 Albumin/Creat Ratio (mg/g) Date Value 07/30/2016 [...] be placed in adherence packaging packs Contact [facility] to coordinate transition to adherence packaging Phone number: [phone] Check on cost comparison of memantine since current covering this medication with goodrx card Maria Short, PharmD, BCACP Primary Care Clinical Pharmacist [facility] documented in this encounterVan Wert County Hospital06-09-2022 Miscellaneous Notes* Telephone Encounter - LAN Pérez - 09/26/2021 1:19 PM EDT TC to Indira from [facility] PT who verbalizes understanding of providers message [...] 09/25/2021 3:38 PM EDT Indira PT from [facility] calling to report she is at pt's [...] Rosalba. Shirley Fitzgerald LPN documented in this encounterVan Wert County Hospital06-07-2022 Miscellaneous Notes* Telephone Encounter - Shyla Hayes RN - 09/24/2021 1:28 PM EDT Chela with [facility] calling to review patient's current medication list for home health purposes. Medications reviewed. Shyla Hayes RN documented in this encounterVan Wert County Hospital06-06-2022 Instructions* Patient Instructions* Lai Turcios MD - 09/23/2021 5:26 PM EDT May take the Miralax twice weekly on Thursday and or Thursday and Thursday. Consider lower dose daily if whole scoop causes incontinence. May consider adding Metamucil and take same days as Miralax or alternate days. Labs sometime soon then again before 6 month follow up. documented in this encounterVan Wert County Hospital06-06-2022 History of Present illness Narrative* Lai Turcios MD - 09/23/2021 5:19 PM EDT This note was created using Roll[employer]. Subjective Silva Garcia is a 76 year [...] recliner. PAST MEDICAL HISTORY Diagnosis Date Acute MA (HCC) 09/18/2011 Contact dermatitis and other eczema, [...] DATE OF EXAM: Jun 20 2021 3:42PM [facility] 0303 - MRI LUMBAR SPINE WO IVCON [...] complication, without long-term current use of insulin ([facility]) E11.9 HGB A1C COMP METABOLIC PANEL CBC LIPID PANEL BASIC ALBUMIN/CREAT RATIO RND UR CONSULT TO PHARMACY 2. Parkinson's disease ([facility]) G20 CONSULT TO PHARMACY 3. Hearing loss [...] PHARMACY Lai Turcios MD documented in this encounterVan Wert County Hospital06-02-2022 Miscellaneous Notes* Telephone Encounter - LAN Pérez - 09/19/2021 11:57 AM EDT TC to Angela from [facility] to give verbal order for delay of start for PT. Angela verbalizes understanding with no questions at this time. LAN Pérez * Telephone Encounter - Asiya John APRN.HECTOR - 09/18/2021 6:50 PM EDT Ok to start home physical therapy on 09/23/21. * Telephone Encounter - Elizabeth Reyes RN - 09/18/2021 4:14 PM EDT Angela- [facility]- reports PT is available to see patient, but cannot see patient until September 23. Needs verbal approval from Asiya for delay of start of care. Please phone Angela with verbal. documented in this encounterVan Wert County Hospital05-31-2022 Miscellaneous Notes* Telephone Encounter - Diana Leos Pss - 09/17/2021 3:28 PM EDT Orders were faxed to [facility]. Completed on another encounter. * Telephone Encounter - LAZARA Mars - 09/17/2021 11:12 AM EDT Thank you for the referral of your patient to [facility]. At this time, we are at capacity and are unable to accept your patient. In order to help your patient receive quality home care, we have included reputable agencies that service this area: [facility] [phone] or [facility] [phone]. Please contact this agency and they will work with your patient to arrange timely services. Thank you, LAZARA Mars 09/17/2021 11:12 AM documented in this encounterVan Wert County Hospital05-31-2022 Miscellaneous Notes* Telephone Encounter - Diana Leos Pss - 09/17/2021 12:13 PM EDT Printed [facility] orders, and office notes. Spoke with Chela at [facility] to confirm fax number. Per her request fax was sent to [phone]. * Telephone Encounter - Evette Molina RN - 09/17/2021 9:09 AM EDT Ally WHITLEY from [facility] [phone] completed eval on patient Calling for a new order for patient to have home PT services. This would be better option for the patient an family Patient is homebound, And is not able to come in for outpatient services except for once a month. New Order would be needed. Please fax order to [phone] [facility]. Patient also needs a new RX for a Rolator. documented in this encounterVan Wert County Hospital05-05-2022 History of Present illness Narrative* Asiya John APRN.BASE MANAGER - 08/22/2021 3:30 PM EDT Images from the original note were not included. [facility] [place] Follow-up Visit Follow-up note August 22, 2021 [...] Words, up to 2 trials: Face, Velvet, Buddhism, Timoteo, Red (no points) 4/5 first try, 5/5 second try Attention forwards: 2 1 8 5 4 (0-1) (04/20) Attention backwards: 7 4 2 (0-1) (04/20) Serial subtraction by 7: [id number] (3 points for correct 4 or 5; 2 points for 2 or 3 correct; 1 point for 1 correct) [phone]- (04/22) Language: repeat: I only know that [...] (2/2) Delayed recall: recall words: face, velvet, muslim, timoteo, red (0-5) (5/5) Orientation: date(1), month(1), year(1), day(1), place(1), city(1) max 6 points (/6) Level of education: add 1 if did not receive more than a HS education +1 Total Score max 28 (22) Hearing impaired (Y or N) Y Vision impaired (Y or N) N PAST MEDICAL HISTORY Diagnosis Date Acute MA (HCC) 09/18/2011 Contact dermatitis and other eczema, [...] which included preparing to see the patient, [id number] patient care, completing clinical documentation, obtaining and/or reviewing separately obtained history, performing a medically appropriate examination and counseling and educating the patient/family/caregiver. documented in this encounterVan Wert County Hospital04-14-2022 Miscellaneous Notes* Telephone Encounter - Pamella Hodges LPN - 08/01/2021 4:38 PM EDT Message left on voicemail to call office for update. Pamella Hodges LPN * Telephone Encounter - Bernadine Gaston LPN - 07/30/2021 10:56 AM EDT Patient Jeet calling he has to cancel Physical Therapy at [facility] due to co pay is to expensive for them. documented in this encounterVan Wert County Hospital04-06-2022 Miscellaneous Notes* Telephone Encounter - Luma [...] AM EDT ----- Message from Asiya John APRN.BASE MANAGER sent at 07/22/2021 11:21 AM EDT ----- A1c elevated at 7.0. Please have patient follow up with her PCP to determine if any further changesto medications are needed. LDL (bad cholesterol) is very good at 57. Continue simvastatin as previously prescribed. documented in this encounterVan Wert County Hospital03-28-2022 Miscellaneous Notes* Telephone Encounter - Pamella Hodges LPN - 07/15/2021 5:18 PM EDT Message left on patient's EC voicemail as requested. Orders for physical therapy faxed to [facility]. Pamella Hodges LPN * Telephone Encounter - Edie Velez RN - 07/15/2021 10:44 AM EDT Patient's calls and states that they cannot go up to [place]. Please fax orders [facility] [employer]. Please give a call when this is faxed. states to leave message. Please review and advise, Edie Velez RN * Telephone Encounter - Pamella Hodges LPN - 07/12/2021 10:17 AM EDT Patient will need to go to [place] to have Physical Therapy, Not Able to here in [place] due to Parkinson's diagnosis. If patient not willing to drive out of town, ask if [facility] is where pt wanting to go? Message left on voicemail to call office. Pamella Hodges LPN documented in this encounterVan Wert County Hospital03-24-2022 History of Present illness Narrative* Asiya John APRN.HECTOR - 07/11/2021 3:30 PM EDT Images from the original note were not included. [facility] [place] Follow-up Visit Follow-up note July 11, 2021 [...] blood work completed since 2019 though [facility]. Reviewed images from both MRI of brain and MRI of lumbar spine together with pt and . PAST MEDICAL HISTORY Diagnosis Date Acute MA (HCC) 09/18/2011 Contact dermatitis and other eczema, [...] Dementia without behavioral disturbance, unspecified dementia type ([facility]) R44.1 Visual hallucinations Comment: Patient previously presenting [...] BASIC CONSULT TO PHYSICAL THERAPY Asiya John APRN.BASE MANAGER I spent a total of 50 minutes on the date of the service which included preparing to see the patient, [id number] patient care, completing clinical documentation, obtaining and/or reviewing separately obtained history, performing a medically appropriate examination, counseling and educating the pat ient/family/caregiver and ordering medications, tests, or procedures. [facility] of Past illness Narrative* Problem Noted Date Resolved Date Seborrhea 10/30/2012 07/30/2016 Sprain and strain of unspeci fied site of shoulder and upper arm 07/29/2012 07/30/2016 Pain in joint, shoulder region 07/29/2012 0 07/30/2016 Acute MA 09/18/2011 06/06/2016 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/18 Fatigue 01/08/2010 06/06/2016 Contact dermatitis and other eczema, due to unspecified cause 07/30/2016 Esophageal reflux 07/30/2016 documented as of this encounter (statuses as of 07/14/2021) [facility] Narrative* Problem Noted Date Resolved Date Seborrhea 10/30/2012 07/30/2016 Sprain and strain of unspeci fied site of shoulder and upper arm 07/29/2012 07/30/2016 Pain in joint, shoulder region 07/29/2012 0 07/30/2016 Acute MA 09/18/2011 06/06/2016 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/18 Fatigue 01/08/2010 06/06/2016 Contact dermatitis and other eczema, due to unspecified cause 07/30/2016 Esophageal reflux 07/30/2016 documented as of this encounter (statuses as of 07/15/2021) [facility] Narrative* Problem Noted Date Resolved Date Seborrhea 10/30/2012 07/30/2016 Sprain and strain of unspeci fied site of shoulder and upper arm 07/29/2012 07/30/2016 Pain in joint, shoulder region 07/29/2012 0 07/30/2016 Acute MA 09/18/2011 06/06/2016 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/18 Fatigue 01/08/2010 06/06/2016 Contact dermatitis and other eczema, due to unspecified cause 07/30/2016 Esophageal reflux 07/30/2016 documented as of this encounter (statuses as of 08/01/2021) [facility] Narrative* Problem Noted Date Resolved Date Seborrhea 10/30/2012 07/30/2016 Sprain and strain of unspeci fied site of shoulder and upper arm 07/29/2012 07/30/2016 Pain in joint, shoulder region 07/29/2012 0 07/30/2016 Acute MA 09/18/2011 06/06/2016 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/18 Fatigue 01/08/2010 06/06/2016 Contact dermatitis and other eczema, due to unspecified cause 07/30/2016 Esophageal reflux 07/30/2016 documented as of this encounter (statuses as of 08/26/2021) [facility] Narrative* Problem Noted Date Resolved Date Seborrhea 10/30/2012 07/30/2016 Sprain and strain of unspeci fied site of shoulder and upper arm 07/29/2012 07/30/2016 Pain in joint, shoulder region 07/29/2012 0 07/30/2016 Acute MA 09/18/2011 06/06/2016 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/18 Fatigue 01/08/2010 06/06/2016 Contact dermatitis and other eczema, due to unspecified cause 07/30/2016 Esophageal reflux 07/30/2016 documented as of this encounter (statuses as of 09/17/2021) [facility]arrative* Problem Noted Date Resolved Date Seborrhea 10/30/2012 07/30/2016 Sprain and strain of unspeci fied site of shoulder and upper arm 07/29/2012 07/30/2016 Pain in joint, shoulder region 07/29/2012 0 07/30/2016 Acute MA 09/18/2011 06/06/2016 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/18 Fatigue 01/08/2010 06/06/2016 Contact dermatitis and other eczema, due to unspecified cause 07/30/2016 Esophageal reflux 07/30/2016 documented as of this encounter (statuses as of 09/17/2021) [facility]arrative* Problem Noted Date Resolved Date Seborrhea 10/30/2012 07/30/2016 Sprain and strain of unspeci fied site of shoulder and upper arm 07/29/2012 07/30/2016 Pain in joint, shoulder region 07/29/2012 0 07/30/2016 Acute MA 09/18/2011 06/06/2016 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/18 Fatigue 01/08/2010 06/06/2016 Contact dermatitis and other eczema, due to unspecified cause 07/30/2016 Esophageal reflux 07/30/2016 documented as of this encounter (statuses as of 09/19/2021) [facility] Narrative* Problem Noted Date Resolved Date Seborrhea 10/30/2012 07/30/2016 Sprain and strain of unspeci fied site of shoulder and upper arm 07/29/2012 07/30/2016 Pain in joint, shoulder region 07/29/2012 0 07/30/2016 Acute MA 09/18/2011 06/06/2016 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/18 Fatigue 01/08/2010 06/06/2016 Contact dermatitis and other eczema, due to unspecified cause 07/30/2016 Esophageal reflux 07/30/2016 documented as of this encounter (statuses as of 09/24/2021) [facility]arrative* Problem Noted Date Resolved Date Seborrhea 10/30/2012 07/30/2016 Sprain and strain of unspeci fied site of shoulder and upper arm 07/29/2012 07/30/2016 Pain in joint, shoulder region 07/29/2012 0 07/30/2016 Acute MA 09/18/2011 06/06/2016 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/18 Fatigue 01/08/2010 06/06/2016 Contact dermatitis and other eczema, due to unspecified cause 07/30/2016 Esophageal reflux 07/30/2016 documented as of this encounter (statuses as of 09/26/2021) [facility]* Problem Noted Date Resolved Date Seborrhea 10/30/2012 07/30/2016 Sprain and strain of unspeci fied site of shoulder and upper arm 07/29/2012 07/30/2016 Pain in joint, shoulder region 07/29/2012 0 07/30/2016 Acute MA 09/18/2011 06/06/2016 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/18 Fatigue 01/08/2010 06/06/2016 Contact dermatitis and other eczema, due to unspecified cause 07/30/2016 Esophageal reflux 07/30/2016 documented as of this encounter (statuses as of 09/30/2021) [facility]arrative* Problem Noted Date Resolved Date Seborrhea 10/30/2012 07/30/2016 Sprain and strain of unspeci fied site of shoulder and upper arm 07/29/2012 07/30/2016 Pain in joint, shoulder region 07/29/2012 0 07/30/2016 Acute MA 09/18/2011 06/06/2016 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/18 Fatigue 01/08/2010 06/06/2016 Contact dermatitis and other eczema, due to unspecified cause 07/30/2016 Esophageal reflux 07/30/2016 documented as of this encounter (statuses as of 09/30/2021) [facility]ative* Problem Noted Date Resolved Date Seborrhea 10/30/2012 07/30/2016 Sprain and strain of unspeci fied site of shoulder and upper arm 07/29/2012 07/30/2016 Pain in joint, shoulder region 07/29/2012 0 07/30/2016 Acute MA 09/18/2011 06/06/2016 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/18 Fatigue 01/08/2010 06/06/2016 Contact dermatitis and other eczema, due to unspecified cause 07/30/2016 Esophageal reflux 07/30/2016 documented as of this encounter (statuses as of 10/01/2021) [facility]ative* Problem Noted Date Resolved Date Seborrhea 10/30/2012 07/30/2016 Sprain and strain of unspeci fied site of shoulder and upper arm 07/29/2012 07/30/2016 Pain in joint, shoulder region 07/29/2012 0 07/30/2016 Acute MA 09/18/2011 06/06/2016 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/18 Fatigue 01/08/2010 06/06/2016 Contact dermatitis and other eczema, due to unspecified cause 07/30/2016 Esophageal reflux 07/30/2016 documented as of this encounter (statuses as of 10/02/2021) [facility]* Problem Noted Date Resolved Date Seborrhea 10/30/2012 07/30/2016 Sprain and strain of unspeci fied site of shoulder and upper arm 07/29/2012 07/30/2016 Pain in joint, shoulder region 07/29/2012 0 07/30/2016 Acute MA 09/18/2011 06/06/2016 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/18 Fatigue 01/08/2010 06/06/2016 Contact dermatitis and other eczema, due to unspecified cause 07/30/2016 Esophageal reflux 07/30/2016 documented as of this encounter (statuses as of 10/15/2021) [facility]* Problem Noted Date Resolved Date Seborrhea 10/30/2012 07/30/2016 Sprain and strain of unspeci fied site of shoulder and upper arm 07/29/2012 07/30/2016 Pain in joint, shoulder region 07/29/2012 0 07/30/2016 Acute MA 09/18/2011 06/06/2016 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/18 Fatigue 01/08/2010 06/06/2016 Contact dermatitis and other eczema, due to unspecified cause 07/30/2016 Esophageal reflux 07/30/2016 documented as of this encounter (statuses as of 11/13/2021) [facility]* Problem Noted Date Resolved Date Seborrhea 10/30/2012 07/30/2016 Sprain and strain of unspeci fied site of shoulder and upper arm 07/29/2012 07/30/2016 Pain in joint, shoulder region 07/29/2012 0 07/30/2016 Acute MA 09/18/2011 06/06/2016 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/18 Fatigue 01/08/2010 06/06/2016 Contact dermatitis and other eczema, due to unspecified cause 07/30/2016 Esophageal reflux 07/30/2016 documented as of this encounter (statuses as of 11/15/2021) [facility]* Problem Noted Date Resolved Date Seborrhea 10/30/2012 07/30/2016 Sprain and strain of unspeci fied site of shoulder and upper arm 07/29/2012 07/30/2016 Pain in joint, shoulder region 07/29/2012 0 07/30/2016 Acute MA 09/18/2011 06/06/2016 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/18 Fatigue 01/08/2010 06/06/2016 Contact dermatitis and other eczema, due to unspecified cause 07/30/2016 Esophageal reflux 07/30/2016 documented as of this encounter (statuses as of 12/16/2021) [facility]* Problem Noted Date Resolved Date Seborrhea 10/30/2012 07/30/2016 Sprain and strain of unspeci fied site of shoulder and upper arm 07/29/2012 07/30/2016 Pain in joint, shoulder region 07/29/2012 0 07/30/2016 Acute MA 09/18/2011 06/06/2016 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/18 Fatigue 01/08/2010 06/06/2016 Contact dermatitis and other eczema, due to unspecified cause 07/30/2016 Esophageal reflux 07/30/2016 documented as of this encounter (statuses as of 12/17/2021) [facility]* Problem Noted Date Resolved Date Seborrhea 10/30/2012 07/30/2016 Sprain and strain of unspeci fied site of shoulder and upper arm 07/29/2012 07/30/2016 Pain in joint, shoulder region 07/29/2012 0 07/30/2016 Acute MA 09/18/2011 06/06/2016 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/18 Fatigue 01/08/2010 06/06/2016 Contact dermatitis and other eczema, due to unspecified cause 07/30/2016 Esophageal reflux 07/30/2016 documented as of this encounter (statuses as of 01/14/2022) [facility]* Problem Noted Date Resolved Date Seborrhea 10/30/2012 07/30/2016 Sprain and strain of unspeci fied site of shoulder and upper arm 07/29/2012 07/30/2016 Pain in joint, shoulder region 07/29/2012 0 07/30/2016 Acute MA 09/18/2011 06/06/2016 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/18 Fatigue 01/08/2010 06/06/2016 Contact dermatitis and other eczema, due to unspecified cause 07/30/2016 Esophageal reflux 07/30/2016 documented as of this encounter (statuses as of 01/16/2022) [facility]* Problem Noted Date Resolved Date Seborrhea 10/30/2012 07/30/2016 Sprain and strain of unspeci fied site of shoulder and upper arm 07/29/2012 07/30/2016 Pain in joint, shoulder region 07/29/2012 0 07/30/2016 Acute MA 09/18/2011 06/06/2016 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/18 Fatigue 01/08/2010 06/06/2016 Contact dermatitis and other eczema, due to unspecified cause 07/30/2016 Esophageal reflux 07/30/2016 documented as of this encounter (statuses as of 01/24/2022) [facility]* Problem Noted Date Resolved Date Seborrhea 10/30/2012 07/30/2016 Sprain and strain of unspeci fied site of shoulder and upper arm 07/29/2012 07/30/2016 Pain in joint, shoulder region 07/29/2012 0 07/30/2016 Acute MA 09/18/2011 06/06/2016 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/18 Fatigue 01/08/2010 06/06/2016 Contact dermatitis and other eczema, due to unspecified cause 07/30/2016 Esophageal reflux 07/30/2016 documented as of this encounter (statuses as of 01/30/2022) [facility]* Problem Noted Date Resolved Date Seborrhea 10/30/2012 07/30/2016 Sprain and strain of unspeci fied site of shoulder and upper arm 07/29/2012 07/30/2016 Pain in joint, shoulder region 07/29/2012 0 07/30/2016 Acute MA 09/18/2011 06/06/2016 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/18 Fatigue 01/08/2010 06/06/2016 Contact dermatitis and other eczema, due to unspecified cause 07/30/2016 Esophageal reflux 07/30/2016 documented as of this encounter (statuses as of 02/05/2022) [facility]* Problem Noted Date Resolved Date Seborrhea 10/30/2012 07/30/2016 Sprain and strain of unspeci fied site of shoulder and upper arm 07/29/2012 07/30/2016 Pain in joint, shoulder region 07/29/2012 0 07/30/2016 Acute MA 09/18/2011 06/06/2016 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/18 Fatigue 01/08/2010 06/06/2016 Contact dermatitis and other eczema, due to unspecified cause 07/30/2016 Esophageal reflux 07/30/2016 documented as of this encounter (statuses as of 02/10/2022) [facility]* Problem Noted Date Resolved Date Seborrhea 10/30/2012 07/30/2016 Sprain and strain of unspeci fied site of shoulder and upper arm 07/29/2012 07/30/2016 Pain in joint, shoulder region 07/29/2012 0 07/30/2016 Acute MA 09/18/2011 06/06/2016 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/18 Fatigue 01/08/2010 06/06/2016 Contact dermatitis and other eczema, due to unspecified cause 07/30/2016 Esophageal reflux 07/30/2016 documented as of this encounter (statuses as of 02/11/2022) [facility]* Problem Noted Date Resolved Date Seborrhea 10/30/2012 07/30/2016 Sprain and strain of unspeci fied site of shoulder and upper arm 07/29/2012 07/30/2016 Pain in joint, shoulder region 07/29/2012 0 07/30/2016 Acute MA 09/18/2011 06/06/2016 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/18 Fatigue 01/08/2010 06/06/2016 Contact dermatitis and other eczema, due to unspecified cause 07/30/2016 Esophageal reflux 07/30/2016 documented as of this encounter (statuses as of 02/17/2022) [facility]* Problem Noted Date Resolved Date Seborrhea 10/30/2012 07/30/2016 Sprain and strain of unspeci fied site of shoulder and upper arm 07/29/2012 07/30/2016 Pain in joint, shoulder region 07/29/2012 0 07/30/2016 Acute MA 09/18/2011 06/06/2016 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/18 Fatigue 01/08/2010 06/06/2016 Contact dermatitis and other eczema, due to unspecified cause 07/30/2016 Esophageal reflux 07/30/2016 documented as of this encounter (statuses as of 03/04/2022) [facility]* Problem Noted Date Resolved Date Seborrhea 10/30/2012 07/30/2016 Sprain and strain of unspeci fied site of shoulder and upper arm 07/29/2012 07/30/2016 Pain in joint, shoulder region 07/29/2012 0 07/30/2016 Acute MA 09/18/2011 06/06/2016 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/18 Fatigue 01/08/2010 06/06/2016 Contact dermatitis and other eczema, due to unspecified cause 07/30/2016 Esophageal reflux 07/30/2016 documented as of this encounter (statuses as of 03/11/2022) [facility]* Problem Noted Date Resolved Date Seborrhea 10/30/2012 07/30/2016 Sprain and strain of unspeci fied site of shoulder and upper arm 07/29/2012 07/30/2016 Pain in joint, shoulder region 07/29/2012 0 07/30/2016 Acute MA 09/18/2011 06/06/2016 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/18 Fatigue 01/08/2010 06/06/2016 Contact dermatitis and other eczema, due to unspecified cause 07/30/2016 Esophageal reflux 07/30/2016 documented as of this encounter (statuses as of 04/07/2022) [facility]* Problem Noted Date Resolved Date Seborrhea 10/30/2012 07/30/2016 Sprain and strain of unspeci fied site of shoulder and upper arm 07/29/2012 07/30/2016 Pain in joint, shoulder region 07/29/2012 0 07/30/2016 Acute MA 09/18/2011 06/06/2016 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/18 Fatigue 01/08/2010 06/06/2016 Contact dermatitis and other eczema, due to unspecified cause 07/30/2016 Esophageal reflux 07/30/2016 documented as of this encounter (statuses as of 04/28/2022) [facility]* Problem Noted Date Resolved Date Seborrhea 10/30/2012 07/30/2016 Sprain and strain of unspeci fied site of shoulder and upper arm 07/29/2012 07/30/2016 Pain in joint, shoulder region 07/29/2012 0 07/30/2016 Acute MA 09/18/2011 06/06/2016 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/18 Fatigue 01/08/2010 06/06/2016 Contact dermatitis and other eczema, due to unspecified cause 07/30/2016 Esophageal reflux 07/30/2016 documented as of this encounter (statuses as of 04/29/2022) [facility] Problem Noted Date Resolved Date Seborrhea 10/30/2012 07/30/2016 Sprain and strain of unspeci fied site of shoulder and upper arm 07/29/2012 07/30/2016 Pain in joint, shoulder region 07/29/2012 0 07/30/2016 Acute MA 09/18/2011 06/06/2016 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/18 Fatigue 01/08/2010 06/06/2016 Contact dermatitis and other eczema, due to unspecified cause 07/30/2016 Esophageal reflux 07/30/2016 documented as of this encounter (statuses as of 04/30/2022) [facility]* Problem Noted Date Resolved Date Seborrhea 10/30/2012 07/30/2016 Sprain and strain of unspeci fied site of shoulder and upper arm 07/29/2012 07/30/2016 Pain in joint, shoulder region 07/29/2012 0 07/30/2016 Acute MA 09/18/2011 06/06/2016 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/18 Fatigue 01/08/2010 06/06/2016 Contact dermatitis and other eczema, due to unspecified cause 07/30/2016 Esophageal reflux 07/30/2016 documented as of this encounter (statuses as of 05/16/2022) [facility]* Problem Noted Date Resolved Date Seborrhea 10/30/2012 07/30/2016 Sprain and strain of unspeci fied site of shoulder and upper arm 07/29/2012 07/30/2016 Pain in joint, shoulder region 07/29/2012 0 07/30/2016 Acute MA 09/18/2011 06/06/2016 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/18 Fatigue 01/08/2010 06/06/2016 Contact dermatitis and other eczema, due to unspecified cause 07/30/2016 Esophageal reflux 07/30/2016 documented as of this encounter (statuses as of 05/26/2022) [facility]* Problem Noted Date Resolved Date Seborrhea 10/30/2012 07/30/2016 Sprain and strain of unspeci fied site of shoulder and upper arm 07/29/2012 07/30/2016 Pain in joint, shoulder region 07/29/2012 0 07/30/2016 Acute MA 09/18/2011 06/06/2016 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/18 Fatigue 01/08/2010 06/06/2016 Contact dermatitis and other eczema, due to unspecified cause 07/30/2016 Esophageal reflux 07/30/2016 documented as of this encounter (statuses as of 06/05/2022) [facility]* Problem Noted Date Resolved Date Seborrhea 10/30/2012 07/30/2016 Sprain and strain of unspeci fied site of shoulder and upper arm 07/29/2012 07/30/2016 Pain in joint, shoulder region 07/29/2012 0 07/30/2016 Acute MA 09/18/2011 06/06/2016 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/18 Fatigue 01/08/2010 06/06/2016 Contact dermatitis and other eczema, due to unspecified cause 07/30/2016 Esophageal reflux 07/30/2016 documented as of this encounter (statuses as of 06/09/2022) [facility]* Problem Noted Date Resolved Date Seborrhea 10/30/2012 07/30/2016 Sprain and strain of unspeci fied site of shoulder and upper arm 07/29/2012 07/30/2016 Pain in joint, shoulder region 07/29/2012 0 07/30/2016 Acute MA 09/18/2011 06/06/2016 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/18 Fatigue 01/08/2010 06/06/2016 Contact dermatitis and other eczema, due to unspecified cause 07/30/2016 Esophageal reflux 07/30/2016 documented as of this encounter (statuses as of 06/13/2022) [facility]* Problem Noted Date Resolved Date Seborrhea 10/30/2012 07/30/2016 Sprain and strain of unspeci fied site of shoulder and upper arm 07/29/2012 07/30/2016 Pain in joint, shoulder region 07/29/2012 0 07/30/2016 Acute MA 09/18/2011 06/06/2016 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/18 Fatigue 01/08/2010 06/06/2016 Contact dermatitis and other eczema, due to unspecified cause 07/30/2016 Esophageal reflux 07/30/2016 documented as of this encounter (statuses as of 06/13/2022) [facility]* Problem Noted Date Resolved Date Seborrhea 10/30/2012 07/30/2016 Sprain and strain of unspeci fied site of shoulder and upper arm 07/29/2012 07/30/2016 Pain in joint, shoulder region 07/29/2012 0 07/30/2016 Acute MA 09/18/2011 06/06/2016 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/18 Fatigue 01/08/2010 06/06/2016 Contact dermatitis and other eczema, due to unspecified cause 07/30/2016 Esophageal reflux 07/30/2016 documented as of this encounter (statuses as of 06/17/2022) [facility]* Problem Noted Date Resolved Date Seborrhea 10/30/2012 07/30/2016 Sprain and strain of unspeci fied site of shoulder and upper arm 07/29/2012 07/30/2016 Pain in joint, shoulder region 07/29/2012 0 07/30/2016 Acute MA 09/18/2011 06/06/2016 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/18 Fatigue 01/08/2010 06/06/2016 Contact dermatitis and other eczema, due to unspecified cause 07/30/2016 Esophageal reflux 07/30/2016 documented as of this encounter (statuses as of 06/17/2022) [facility]* Problem Noted Date Resolved Date Seborrhea 10/30/2012 07/30/2016 Sprain and strain of unspeci fied site of shoulder and upper arm 07/29/2012 07/30/2016 Pain in joint, shoulder region 07/29/2012 0 07/30/2016 Acute MA 09/18/2011 06/06/2016 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/18 Fatigue 01/08/2010 06/06/2016 Contact dermatitis and other eczema, due to unspecified cause 07/30/2016 Esophageal reflux 07/30/2016 documented as of this encounter (statuses as of 07/16/2022) [facility]* Problem Noted Date Resolved Date Seborrhea 10/30/2012 07/30/2016 Sprain and strain of unspeci fied site of shoulder and upper arm 07/29/2012 07/30/2016 Pain in joint, shoulder region 07/29/2012 0 07/30/2016 Acute MA 09/18/2011 06/06/2016 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/18 Fatigue 01/08/2010 06/06/2016 Contact dermatitis and other eczema, due to unspecified cause 07/30/2016 Esophageal reflux 07/30/2016 documented as of this encounter (statuses as of 08/05/2022) [facility]* Problem Noted Date Resolved Date Seborrhea 10/30/2012 07/30/2016 Sprain and strain of unspeci fied site of shoulder and upper arm 07/29/2012 07/30/2016 Pain in joint, shoulder region 07/29/2012 0 07/30/2016 Acute MA 09/18/2011 06/06/2016 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/18 Fatigue 01/08/2010 06/06/2016 Contact dermatitis and other eczema, due to unspecified cause 07/30/2016 Esophageal reflux 07/30/2016 documented as of this encounter (statuses as of 08/15/2022) [facility]arrative* Problem Noted Date Resolved Date Seborrhea 10/30/2012 07/30/2016 Sprain and strain of unspeci fied site of shoulder and upper arm 07/29/2012 07/30/2016 Pain in joint, shoulder region 07/29/2012 0 07/30/2016 Acute MA 09/18/2011 06/06/2016 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/18 Fatigue 01/08/2010 06/06/2016 Contact dermatitis and other eczema, due to unspecified cause 07/30/2016 Esophageal reflux 07/30/2016 documented as of this encounter (statuses as of 08/25/2022) [facility] History of Past illness Narrative* Problem Noted Date Resolved Date Seborrhea 10/30/2012 07/30/2016 Sprain and strain of unspeci fied site of shoulder and upper arm 07/29/2012 07/30/2016 Pain in joint, shoulder region 07/29/2012 0 07/30/2016 Acute MA 09/18/2011 06/06/2016 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/18 Fatigue 01/08/2010 06/06/2016 Contact dermatitis and other eczema, due to unspecified cause 07/30/2016 Esophageal reflux 07/30/2016 documented as of this encounter (statuses as of 10/08/2022) [facility] History of Past illness Narrative* Problem Noted Date Resolved Date Seborrhea 10/30/2012 07/30/2016 Sprain and strain of unspeci fied site of shoulder and upper arm 07/29/2012 07/30/2016 Pain in joint, shoulder region 07/29/2012 0 07/30/2016 Acute MA 09/18/2011 06/06/2016 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/18 Fatigue 01/08/2010 06/06/2016 Contact dermatitis and other eczema, due to unspecified cause 07/30/2016 Esophageal reflux 07/30/2016 documented as of this encounter (statuses as of 10/15/2022) [facility] History of Past illness Narrative* Problem Noted Date Resolved Date Seborrhea 10/30/2012 07/30/2016 Sprain and strain of unspeci fied site of shoulder and upper arm 07/29/2012 07/30/2016 Pain in joint, shoulder region 07/29/2012 0 07/30/2016 Acute MA 09/18/2011 06/06/2016 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/18 Fatigue 01/08/2010 06/06/2016 Contact dermatitis and other eczema, due to unspecified cause 07/30/2016 Esophageal reflux 07/30/2016 documented as of this encounter (statuses as of 10/16/2022) [facility] History of Past illness Narrative* Problem Noted Date Resolved Date Seborrhea 10/30/2012 07/30/2016 Sprain and strain of unspeci fied site of shoulder and upper arm 07/29/2012 07/30/2016 Pain in joint, shoulder region 07/29/2012 0 07/30/2016 Acute MA 09/18/2011 06/06/2016 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/18 Fatigue 01/08/2010 06/06/2016 Contact dermatitis and other eczema, due to unspecified cause 07/30/2016 Esophageal reflux 07/30/2016 documented as of this encounter (statuses as of 10/20/2022) [facility] History of Past illness Narrative* Problem Noted Date Resolved Date Seborrhea 10/30/2012 07/30/2016 Sprain and strain of unspeci fied site of shoulder and upper arm 07/29/2012 07/30/2016 Pain in joint, shoulder region 07/29/2012 0 07/30/2016 Acute MA 09/18/2011 06/06/2016 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/18 Fatigue 01/08/2010 06/06/2016 Contact dermatitis and other eczema, due to unspecified cause 07/30/2016 Esophageal reflux 07/30/2016 documented as of this encounter (statuses as of 10/23/2022) [facility] History of Past illness Narrative* Problem Noted Date Diagnosed Date Resolved Date Seborrhea 10/30/2012 07/30/2016 Sprain and strain of unspeci fied site of shoulder and upper arm 07/29/2012 07/30/2016 Pain in joint, shoulder region 07/29/2012 07/30/2016 Acute MA 09/18/2011 06/06/2016 DM w/o Complication Type II 01/08/2010 02/05/2015 Fatigue 01/08/2010 06/06/2016 Contact dermatitis and other eczema, due to unspecified cause 07/30/2016 Esophageal reflux 07/30/2016 documented as of this encounter (statuses as of 10/28/2022) [facility] History of Past illness Narrative* Problem Noted Date Diagnosed Date Resolved Date Seborrhea 10/30/2012 07/30/2016 Sprain and strain of unspeci fied site of shoulder and upper arm 07/29/2012 07/30/2016 Pain in joint, shoulder region 07/29/2012 07/30/2016 Acute MA 09/18/2011 06/06/2016 DM w/o Complication Type II 01/08/2010 02/05/2015 Fatigue 01/08/2010 06/06/2016 Contact dermatitis and other eczema, due to unspecified cause 07/30/2016 Esophageal reflux 07/30/2016 documented as of this encounter (statuses as of 11/24/2022) [facility] History of Past illness Narrative* Problem Noted Date Diagnosed Date Resolved Date Seborrhea 10/30/2012 07/30/2016 Sprain and strain of unspeci fied site of shoulder and upper arm 07/29/2012 07/30/2016 Pain in joint, shoulder region 07/29/2012 07/30/2016 Acute MA 09/18/2011 06/06/2016 DM w/o Complication Type II 01/08/2010 02/05/2015 Fatigue 01/08/2010 06/06/2016 Contact dermatitis and other eczema, due to unspecified cause 07/30/2016 Esophageal reflux 07/30/2016 documented as of this encounter (statuses as of 11/28/2022) [facility] History of Past illness Narrative* Problem Noted Date Diagnosed Date Resolved Date Seborrhea 10/30/2012 07/30/2016 Sprain and strain of unspeci fied site of shoulder and upper arm 07/29/2012 07/30/2016 Pain in joint, shoulder region 07/29/2012 07/30/2016 Acute MA 09/18/2011 06/06/2016 DM w/o Complication Type II 01/08/2010 02/05/2015 Fatigue 01/08/2010 06/06/2016 Contact dermatitis and other eczema, due to unspecified cause 07/30/2016 Esophageal reflux 07/30/2016 documented as of this encounter (statuses as of 12/05/2022) [facility] History of Past illness Narrative* Problem Noted Date Diagnosed Date Resolved Date Seborrhea 10/30/2012 07/30/2016 Sprain and strain of unspeci fied site of shoulder and upper arm 07/29/2012 07/30/2016 Pain in joint, shoulder region 07/29/2012 07/30/2016 Acute MA 09/18/2011 06/06/2016 DM w/o Complication Type II 01/08/2010 02/05/2015 Fatigue 01/08/2010 06/06/2016 Contact dermatitis and other eczema, due to unspecified cause 07/30/2016 Esophageal reflux 07/30/2016 documented as of this encounter (statuses as of 12/10/2022) [facility] History of Past illness Narrative* Problem Noted Date Diagnosed Date Resolved Date Seborrhea 10/30/2012 07/30/2016 Sprain and strain of unspeci fied site of shoulder and upper arm 07/29/2012 07/30/2016 Pain in joint, shoulder region 07/29/2012 07/30/2016 Acute MA 09/18/2011 06/06/2016 DM w/o Complication Type II 01/08/2010 02/05/2015 Fatigue 01/08/2010 06/06/2016 Contact dermatitis and other eczema, due to unspecified cause 07/30/2016 Esophageal reflux 07/30/2016 documented as of this encounter (statuses as of 12/16/2022) [facility] History of Past illness Narrative* Problem Noted Date Diagnosed Date Resolved Date Seborrhea 10/30/2012 07/30/2016 Sprain and strain of unspeci fied site of shoulder and upper arm 07/29/2012 07/30/2016 Pain in joint, shoulder region 07/29/2012 07/30/2016 Acute MA 09/18/2011 06/06/2016 DM w/o Complication Type II 01/08/2010 02/05/2015 Fatigue 01/08/2010 06/06/2016 Contact dermatitis and other eczema, due to unspecified cause 07/30/2016 Esophageal reflux 07/30/2016 documented as of this encounter (statuses as of 12/29/2022) [facility] History of Past illness Narrative* Problem Noted Date Diagnosed Date Resolved Date Seborrhea 10/30/2012 07/30/2016 Sprain and strain of unspeci fied site of shoulder and upper arm 07/29/2012 07/30/2016 Pain in joint, shoulder region 07/29/2012 07/30/2016 Acute MA 09/18/2011 06/06/2016 DM w/o Complication Type II 01/08/2010 02/05/2015 Fatigue 01/08/2010 06/06/2016 Contact dermatitis and other eczema, due to unspecified cause 07/30/2016 Esophageal reflux 07/30/2016 documented as of this encounter (statuses as of 01/01/2023) [facility] History of Past illness Narrative* Problem Noted Date Diagnosed Date Resolved Date Seborrhea 10/30/2012 07/30/2016 Sprain and strain of unspeci fied site of shoulder and upper arm 07/29/2012 07/30/2016 Pain in joint, shoulder region 07/29/2012 07/30/2016 Acute MA 09/18/2011 06/06/2016 DM w/o Complication Type II 01/08/2010 02/05/2015 Fatigue 01/08/2010 06/06/2016 Contact dermatitis and other eczema, due to unspecified cause 07/30/2016 Esophageal reflux 07/30/2016 documented as of this encounter (statuses as of 01/02/2023) [facility] History of Past illness Narrative* Problem Noted Date Diagnosed Date Resolved Date Seborrhea 10/30/2012 07/30/2016 Sprain and strain of unspeci fied site of shoulder and upper arm 07/29/2012 07/30/2016 Pain in joint, shoulder region 07/29/2012 07/30/2016 Acute MA 09/18/2011 06/06/2016 DM w/o Complication Type II 01/08/2010 02/05/2015 Fatigue 01/08/2010 06/06/2016 Contact dermatitis and other eczema, due to unspecified cause 07/30/2016 Esophageal reflux 07/30/2016 documented as of this encounter (statuses as of 01/06/2023) [facility] History of Past illness Narrative* Problem Noted Date Diagnosed Date Resolved Date Seborrhea 10/30/2012 07/30/2016 Sprain and strain of unspeci fied site of shoulder and upper arm 07/29/2012 07/30/2016 Pain in joint, shoulder region 07/29/2012 07/30/2016 Acute MA 09/18/2011 06/06/2016 DM w/o Complication Type II 01/08/2010 02/05/2015 Fatigue 01/08/2010 06/06/2016 Contact dermatitis and other eczema, due to unspecified cause 07/30/2016 Esophageal reflux 07/30/2016 documented as of this encounter (statuses as of 01/07/2023) [facility] note* Diagnosis Parkinson's disease (HCC)- Primary Paralysis agitans Dementia without behavioral disturbance, unspecified dementia type (HCC) Visual hallucinations Psychophysical visual disturbances Midline low back pain without sciatica, unspecified chronicity Bowel and bladder incontinence Unspecified urinary incontinence Gait instability Abnormality of gait Type 2 diabetes mellitus with other specified complication, without long-term current use of insulin ([facility]) History of stroke Transient ischemic attack (TIA), and cerebral infarction without residual deficits documented in this encounter [facility] note* Diagnosis Parkinson's disease (HCC)- Primary Paralysis [...] complication, without long-term current use of insulin ([facility]) documented in this encounter [facility] note* Diagnosis Abnormality of gait- Primary History of stroke Transient ischemic attack (TIA), and cerebral infarction without residual deficits Dementia without behavioral disturbance, unspecified dementia type (HCC) Parkinson's disease (HCC) Paralysis agitans documented in this encounter [facility] note* Diagnosis Type 2 diabetes mellitus without [...] hypothyroidism Unspecified hypothyroidism documented in this encounter [facility] note* Diagnosis Panic disorder without agoraphobia- Primary Parkinson's disease (HCC) Paralysis agitans S/P CABG x 3 Postsurgical aortocoronary bypass status [facility] Diagnosis Panic disorder without agoraphobia Parkinson's disease (HCC) Paralysis agitans documented in this encounter [facility] [place] [facility]* Diagnosis Parkinson's disease (HCC)- Primary Paralysis agitans Gait instability Abnormality of gait Dementia without behavioral disturbance, unspecified dementia type ([facility]) Visual hallucinations Psychophysical visual disturbances Midline low back pain without sciatica, unspecified chronicity Bowel and bladder incontinence Unspecified urinary incontinence History of stroke Transient ischemic attack (TIA), and cerebral infarction without residual deficits Type 2 diabetes mellitus without complication, without long-term current use of insulin ([facility]) [facility] Diagnosis Urinary incontinence, unspecified type- Primary Parkinson's disease (HCC) Paralysis agitans Dementia without behavioral disturbance, unspecified dementia type [facility] Diagnosis Parkinson's disease (HCC) Paralysis agitans Dementia without behavioral disturbance (HCC) Dementia, unspecified, without behavioral disturbance Urinary incontinence, unspecified type [facility] Diagnosis Dysuria- Primary [facility] Diagnosis Parkinson's disease (HCC) Paralysis agitans Dementia without behavioral disturbance (HCC) Dementia, unspecified, without behavioral disturbance Urinary incontinence, unspecified type [facility] Diagnosis Panic disorder without agoraphobia [facility] Diagnosis Type 2 diabetes mellitus without complication, without long-term current use of insulin ([facility]) documented in this encounter [facility] [place] [facility]* Diagnosis Type 2 diabetes mellitus without complication, without long-term current use of insulin ([facility])- Primary Renal insufficiency Unspecified disorder of kidney and ureter Low serum albumin [facility] Diagnosis Type 2 diabetes mellitus without complication, without long-term current use of insulin ([facility])- Primary Acquired hypothyroidism Unspecified hypothyroidism Parkinson's disease (HCC) Paralysis agitans Urinary incontinence, unspecified type Positive for macroalbuminuria Proteinuria Primary hypertension Unspecified essential hypertension Encounter for long-term current use of medication documented in this encounter [facility] [place] [facility]* Diagnosis Parkinson's disease (HCC)- Primary Paralysis agitans Abnormality of gait Dementia without behavioral disturbance (HCC) Dementia, unspecified, without behavioral disturbance Midline low back pain without sciatica, unspecified chronicity Bowel and bladder incontinence Unspecified urinary incontinence History of stroke Transient ischemic attack (TIA), and cerebral infarction without residual deficits Type 2 diabetes mellitus without complication, without long-term current use of insulin ([facility]) documented in this encounter [facility] [place] [facility]* Diagnosis Type 2 diabetes mellitus without complication, without long-term current use of insulin ([facility])- Primary Decubitus ulcer of coccygeal region, unspecified ulcer stage Obstruction of right ureter Primary hypertension Unspecified essential hypertension Parkinson's disease (HCC) Paralysis agitans [facility] Diagnosis Type 2 diabetes mellitus without complication, without long-term current use of insulin ([facility])- Primary Screening for diabetic retinopathy Screening for other eye conditions Screening for colon cancer Special screening for malignant neoplasms, colon Encounter for immunization Need for other specified prophylactic vaccination against single bacterial disease Chronic skin ulcer, limited to breakdown of skin ([facility]) Urinary incontinence, unspecified type Obstruction of right ureter Elevated serum creatinine Other nonspecific findings on examination of blood S/P CABG x 3 Postsurgical aortocoronary bypass status [facility] Diagnosis Primary hypertension Unspecified essential hypertension [facility] Diagnosis Panic disorder without agoraphobia documented in this encounter [facility] [place] [facility]* Diagnosis Type 2 diabetes mellitus without complication, without long-term current use of insulin ([facility]) [facility] Diagnosis Panic disorder without agoraphobia- Primary [...] therapeutic drug monitoring documented in this encounter [facility] [place] [facility]* Diagnosis Panic disorder without agoraphobia [facility] Diagnosis Parkinson's disease (HCC)- Primary Paralysis agitans Abnormality of gait Dementia without behavioral disturbance (HCC) Dementia, unspecified, without behavioral disturbance Lumbar pain Lumbago History of stroke Transient ischemic attack (TIA), and cerebral infarction without residual deficits Spinal stenosis of lumbar region, unspecified whether neurogenic claudication present [facility] Diagnosis Parkinson's disease (HCC)- Primary Paralysis agitans Lumbar pain Lumbago Abnormality of gait documented in this encounter [facility] note* Diagnosis Panic disorder without agoraphobia [facility] Diagnosis Parkinson's disease (HCC)- Primary Paralysis agitans documented in this encounter [facility] note* Diagnosis Parkinson's disease with fluctuating manifestations, unspecified whether dyskinesia present- Primary Abnormality of gait Dementia without behavioral disturbance (HCC) Dementia, unspecified, without behavioral disturbance Visual hallucinations Psychophysical visual disturbances Spinal stenosis of lumbar region, unspecified whether neurogenic claudication present History of stroke Transient ischemic attack (TIA), and cerebral infarction without residual deficits Hypotension, unspecified hypotension type documented in this encounter [facility] note* Diagnosis Panic disorder without agoraphobia documented in this encounter [facility] note* Diagnosis Parkinson's disease Paralysis agitans documented in this encounter [facility] note* Diagnosis Panic disorder without agoraphobia [facility] Diagnostic Procedure Only (Routine) - Authorized Specialty Diagnoses / Procedures Referred By Sandy javier Referred To Contact US IMAGING Diagnoses Parkinson's disease (HCC) Dementia without behavioral disturbance, unspecified dementia type Urinary incontinence, unspecified type Procedures US PELVIS BLADDER US PELVIC NONOBSTETRIC IMAGE DCMTN LIMITED/F/U Bobby Doherty APRN.CNS [address] [place] [address] [facility] Referral ID Status Reason Start Date Expiration Date Visits Requested Visits Authorized [id number] Authorized Auto-Generat ed Referral 01/14/2022 02/13/2023 1 1 * Consult, Test, Treat (Routine) - Authorized Specialty Diagnoses / Procedures Referred By Contac t Referred To Contact Urology Diagnoses Parkinson's disease (HCC) Dementia without behavioral disturbance, unspecified dementia type Urinary incontinence, unspecified type Procedures CONSULT TO UROLOGY OFFICE/OUTPATIENT NEW HIGH MDM 60-74 MINUTES Bobby Doherty APRN.TRAINING ANALYST [address] [place] [address] Referral ID Status Reason Start Date Expiration Date Visits Requested Visits Authorized [id number] Authorized PCP Requested Referral 01/14/2022 01/14/2023 1 1 [facility] for referral (narrative)* Diagnostic Procedure Only (Routine) - Closed Specialty Diagnoses / Procedures Referred By Contac t Referred To Contact US IMAGING Diagnoses Parkinson's disease (HCC) Dementia without behavioral disturbance, unspecified dementia type Urinary incontinence, unspecified type Procedures US PELVIS BLADDER US PELVIC NONOBSTETRIC IMAGE DCMTN LIMITED/F/U Bobby Doherty APRN.TRAINING ANALYST [address] [place] [address] [facility] Imaging Referral ID Status Reason Start Date Expiration Date V isits Requested Visits Authorized [id number] Closed Auto-Generate d Referral 01/14/2022 02/13/2023 1 1 [facility] for referral (narrative)* Outpatient Procedure (Routine) - Pending Review Specialty Diagnoses / Procedures Referred By Contac t Referred To Contact [facility] Diagnoses Parkinson's disease (HCC) Urinary incontinence, unspecified type Procedures URODYNAMICS WITH EMG EMG STDS ANAL/URTL SPHNCTR OTH/THN NDL Ricardo Mcdonald PA-C [address] [place] [address] [facility] [address] [place] [address] Referral ID Status Reason Start Date Expiration Date Visits Requested Visits Authorized [id number] Pending Review Auto-Generat ed Referral 2 01/28/2023 1 1 * Outpatient Procedure (Routine) - Pending Review Specialty Diagnoses / Procedures Referred By Contac t Referred To Contact [facility] Diagnoses Parkinson's disease (HCC) Urinary incontinence, unspecified type Procedures CYSTO/TRUS ONLY CYSTOURETHROSCOPY US, TRANSRECTAL Ricardo Mcdonald PA-C [address] [place] [address] [facility] [address] [place] [address] Referral ID Status Reason Start Date Expiration Date Visits Requested Visits Authorized [id number] Pending Review Auto-Generat ed Referral 2 01/28/2023 1 1 [facility] Summary Purpose Family History No Family [...] EXERCISES RE, EA 15 MIN. Asiya John, BOSSAMN.BASE MANAGER [address] [place] [address] [facility] [address] [address] Referral ID Status Reason Start Date Expiration Date V isits Requested Visits Authorized [id number] Authorized 07/12/2021 04/19/2022 99 99 Specialty Diagnoses / Procedures Referred By Contac t Referred To Contact Diagnoses Abnormality of gait History of stroke Dementia without behavioral disturbance, unspecified dementia type (HCC) Parkinson's disease (HCC) Procedures CONSULT TO [facility] Asiya John, BOSSMAN.BASE MANAGER [address] [place] [address] [address] [place] [address] Referral ID Status Reason Start Date Expiration Date Visits Requested Visits Authorized [id number] Authorized PCP Requested Referral 09/17/2021 12/16/2021 1 1 Specialty Diagnoses / Procedures Referred By Contac t Referred To Contact [facility] Diagnoses Gait instability Midline low back pain without sciatica, unspecified chronicity Bowel and bladder incontinence Lumbar pain Procedures [facility]/OUTPATIENT [facility] 60-74 MINUTES Asiya John, SENIOR HEALTH PHYSICS TECHNICIAN.BASE MANAGER [address] [place] [address] Referral ID Status Reason Start Date Expiration Date Visits Requested Visits Authorized [id number] Authorized PCP Requested Referral 12/12/2021 12/12/2022 1 1 Specialty Diagnoses / Procedures Referred By Contac t Referred To Contact Bobby Doherty, SENIOR HEALTH PHYSICS TECHNICIAN.TRAINING ANALYST [address] [place] [address] Referral ID Status Reason Start Date Expiration Date V isits Requested Visits Authorized [id number] Pending Review 1 1 Specialty Diagnoses / Procedures Referred By Contac t Referred To Contact [facility] Diagnoses Abnormality of gait Lumbar pain Spinal stenosis of lumbar region, unspecified whether neurogenic claudication present Procedures [facility]/OUTPATIENT [facility] 60-74 MINUTES Asiya John, SENIOR HEALTH PHYSICS TECHNICIAN.BASE MANAGER [address] [place] [address] Referral ID Status Reason Start Date Expiration Date Visits Requested Visits Authorized [id number] Pending Review PCP Requested Referral 11/21/2022 11/21/2023 1 1 Specialty Diagnoses / Procedures Referred By Contac t Referred To Contact Diagnoses Parkinson's disease (HCC) Lumbar pain Abnormality of gait Procedures CONSULT TO [facility] Asiya John, SENIOR HEALTH PHYSICS TECHNICIAN.BASE MANAGER [address] [place] [address] [address] [place] [id number] Referral ID Status Reason Start Date Expiration Date Visits Requested Visits Authorized [id number] Pending Review PCP Requested Referral 11/27/2022 02/25/2023 1 1 Specialty Diagnoses / Procedures Referred By Contac t Referred To Contact Diagnoses Dementia without behavioral disturbance (HCC) Jeet Alvarez Jr., MD [address] [address] Referral ID Status Reason Start Date Expiration Date Visits Re quested Visits Authorized [id number] Closed 1 1 Specialty Diagnoses / Procedures Referred By Contac t Referred To Contact [facility] Diagnoses Parkinson's disease with fluctuating manifestations, unspecified whether dyskinesia present Procedures CONSULT TO SAMPLE PASTER OCCUPATIONAL THERAPY EVAL HIGH COMPLEX 60 MINS Jeet Alvarez Jr., MD [address] [facility] [address] [place] [address] [facility] [address] [address] Referral ID Status Reason Start Date Expiration Date Visits Requested Visits Authorized [id number] Pending Review Auto-Generat ed Referral 02/23/2023 02/23/2024 1 1 Specialty Diagnoses / Procedures Referred By Contac t Referred To Contact [facility] Diagnoses Parkinson's disease with fluctuating manifestations, unspecified whether dyskinesia present Procedures CONSULT TO PHYSICAL THERAPY PHYSICAL THERAPY EVALUATION HIGH COMPLEX 45 MINS Jeet Alvarez Jr., MD [address] [facility] [address] [place] [address] [address] Referral ID Status Reason Start Date Expiration Date Visits Requested Visits Authorized [id number] Pending Review Auto-Generat ed Referral 02/23/2023 02/23/2024 1 1 Additional Source Comments INFORMATION SOURCE (unrecogn ized section and content) DATE CREATED AUTHOR AUTHOR'S ORGANIZ ATION 05/29/2023 [facility] Source Comments (unrecognize d section and content) In the event this informatio n is protected by the Federal Confidentiality of Alcohol and Drug Abuse Patient Records regulations: The Federal rules restrict any use of the information to criminally investigate or prosecute any alcohol or drug abuse patient.[facility] the event this information is protected by the Federal Confidentiality of Alcohol and Drug Abuse Patient Records regulations: The Federal rules restrict any use of the information to criminally investigate or prosecute any alcohol or drug abuse patient.[facility]In the event this information is protected by the Federal Confidentiality of Alcohol and Drug Abuse Patient Records regulations: The Federal rules restrict any use of the information to criminally investigate or prosecute any alcohol or drug abuse patient.[facility]In the event this information is protected by the Federal Confidentiality of Alcohol and Drug Abuse Patient Records regulations: The Federal rules restrict any use of the information to criminally investigate or prosecute any alcohol or drug abuse patient.[facility]In the event this information is protected by the Federal Confidentiality of Alcohol and Drug Abuse Patient Records regulations: The Federal rules restrict any use of the information to criminally investigate or prosecute any alcohol or drug abuse patient.[facility] HospitalIn the event this information is protected by the Federal Confidentiality of Alcohol and Drug Abuse Patient Records regulations: The Federal rules restrict any use of the information to criminally investigate or prosecute any alcohol or drug abuse patient.[facility]In the event this information is protected by the Federal Confidentiality of Alcohol and Drug Abuse Patient Records regulations: The Federal rules restrict any use of the information to criminally investigate or prosecute any alcohol or drug abuse patient.[facility]In the event this information is protected by the Federal Confidentiality of Alcohol and Drug Abuse Patient Records regulations: The Federal rules restrict any use of the information to criminally investigate or prosecute any alcohol or drug abuse patient.[facility]In the event this information is protected by the Federal Confidentiality of Alcohol and Drug Abuse Patient Records regulations: The Federal rules restrict any use of the information to criminally investigate or prosecute any alcohol or drug abuse patient.[facility]In the event this information is protected by the Federal Confidentiality of Alcohol and Drug Abuse Patient Records regulations: The Federal rules restrict any use of the information to criminally investigate or prosecute any alcohol or drug abuse patient.[facility]In the event this information is protected by the Federal Confidentiality of Alcohol and Drug Abuse Patient Records regulations: The Federal rules restrict any use of the information to criminally investigate or prosecute any alcohol or drug abuse patient.[facility] HospitalIn the event this information is protected by the Federal Confidentiality of Alcohol and Drug Abuse Patient Records regulations: The Federal rules restrict any use of the information to criminally investigate or prosecute any alcohol or drug abuse patient.[facility]In the event this information is protected by the Federal Confidentiality of Alcohol and Drug Abuse Patient Records regulations: The Federal rules restrict any use of the information to criminally investigate or prosecute any alcohol or drug abuse patient.[facility] HospitalIn the event this information is protected by the Federal Confidentiality of Alcohol and Drug Abuse Patient Records regulations: The Federal rules restrict any use of the information to criminally investigate or prosecute any alcohol or drug abuse patient.[facility] HospitalIn the event this information is protected by the Federal Confidentiality of Alcohol and Drug Abuse Patient Records regulations: The Federal rules restrict any use of the information to criminally investigate or prosecute any alcohol or drug abuse patient.[facility] HospitalIn the event this information is protected by the Federal Confidentiality of Alcohol and Drug Abuse Patient Records regulations: The Federal rules restrict any use of the information to criminally investigate or prosecute any alcohol or drug abuse patient.[facility] HospitalIn the event this information is protected by the Federal Confidentiality of Alcohol and Drug Abuse Patient Records regulations: The Federal rules restrict any use of the information to criminally investigate or prosecute any alcohol or drug abuse patient.[facility] HospitalIn the event this information is protected by the Federal Confidentiality of Alcohol and Drug Abuse Patient Records regulations: The Federal rules restrict any use of the information to criminally investigate or prosecute any alcohol or drug abuse patient.[facility] HospitalIn the event this information is protected by the Federal Confidentiality of Alcohol and Drug Abuse Patient Records regulations: The Federal rules restrict any use of the information to criminally investigate or prosecute any alcohol or drug abuse patient.[facility] HospitalIn the event this information is protected by the Federal Confidentiality of Alcohol and Drug Abuse Patient Records regulations: The Federal rules restrict any use of the information to criminally investigate or prosecute any alcohol or drug abuse patient.[facility] HospitalIn the event this information is protected by the Federal Confidentiality of Alcohol and Drug Abuse Patient Records regulations: The Federal rules restrict any use of the information to criminally investigate or prosecute any alcohol or drug abuse patient.[facility] the event this information is protected by the Federal Confidentiality of Alcohol and Drug Abuse Patient Records regulations: The Federal rules restrict any use of the information to criminally investigate or prosecute any alcohol or drug abuse patient.[facility] HospitalIn the event this information is protected by the Federal Confidentiality of Alcohol and Drug Abuse Patient Records regulations: The Federal rules restrict any use of the information to criminally investigate or prosecute any alcohol or drug abuse patient.[facility] HospitalIn the event this information is protected [...] or prosecute any alcohol or drug abuse patient.[facility] HospitalIn the event this information is protected by the Federal Confidentiality of Alcohol and Drug Abuse Patient Records regulations: The Federal rules restrict any use of the information to criminally investigate or prosecute any alcohol or drug abuse patient.[facility] HospitalIn the event this information is protected by the Federal Confidentiality of Alcohol and Drug Abuse Patient Records regulations: The Federal rules restrict any use of the information to criminally investigate or prosecute any alcohol or drug abuse patient.[facility] HospitalIn the event this information is protected by the Federal Confidentiality of Alcohol and Drug Abuse Patient Records regulations: The Federal rules restrict any use of the information to criminally investigate or prosecute any alcohol or drug abuse patient.[facility] HospitalIn the event this information is protected by the Federal Confidentiality of Alcohol and Drug Abuse Patient Records regulations: The Federal rules restrict any use of the information to criminally investigate or prosecute any alcohol or drug abuse patient.[facility] HospitalIn the event this information is protected by the Federal Confidentiality of Alcohol and Drug Abuse Patient Records regulations: The Federal rules restrict any use of the information to criminally investigate or prosecute any alcohol or drug abuse patient.[facility] HospitalIn the event this information is protected by the Federal Confidentiality of Alcohol and Drug Abuse Patient Records regulations: The Federal rules restrict any use of the information to criminally investigate or prosecute any alcohol or drug abuse patient.[facility] HospitalIn the event this information is protected by the Federal Confidentiality of Alcohol and Drug Abuse Patient Records regulations: The Federal rules restrict any use of the information to criminally investigate or prosecute any alcohol or drug abuse patient.[facility] HospitalIn the event this information is protected by the Federal Confidentiality of Alcohol and Drug Abuse Patient Records regulations: The Federal rules restrict any use of the information to criminally investigate or prosecute any alcohol or drug abuse patient.[facility] HospitalIn the event this information is protected by the Federal Confidentiality of Alcohol and Drug Abuse Patient Records regulations: The Federal rules restrict any use of the information to criminally investigate or prosecute any alcohol or drug abuse patient.[facility] HospitalIn the event this information is protected by the Federal Confidentiality of Alcohol and Drug Abuse Patient Records regulations: The Federal rules restrict any use of the information to criminally investigate or prosecute any alcohol or drug abuse patient.[facility] HospitalIn the event this information is protected by the Federal Confidentiality of Alcohol and Drug Abuse Patient Records regulations: The Federal rules restrict any use of the information to criminally investigate or prosecute any alcohol or drug abuse patient.[facility] HospitalIn the event this information is protected by the Federal Confidentiality of Alcohol and Drug Abuse Patient Records regulations: The Federal rules restrict any use of the information to criminally investigate or prosecute any alcohol or drug abuse patient.[facility] HospitalIn the event this information is protected by the Federal Confidentiality of Alcohol and Drug Abuse Patient Records regulations: The Federal rules restrict any use of the information to criminally investigate or prosecute any alcohol or drug abuse patient.[facility] HospitalIn the event this information is protected by the Federal Confidentiality of Alcohol and Drug Abuse Patient Records regulations: The Federal rules restrict any use of the information to criminally investigate or prosecute any alcohol or drug abuse patient.[facility] HospitalIn the event this information is protected by the Federal Confidentiality of Alcohol and Drug Abuse Patient Records regulations: The Federal rules restrict any use of the information to criminally investigate or prosecute any alcohol or drug abuse patient.[facility] HospitalIn the event this information is protected by the Federal Confidentiality of Alcohol and Drug Abuse Patient Records regulations: The Federal rules restrict any use of the information to criminally investigate or prosecute any alcohol or drug abuse patient.[facility] HospitalIn the event this information is protected by the Federal Confidentiality of Alcohol and Drug Abuse Patient Records regulations: The Federal rules restrict any use of the information to criminally investigate or prosecute any alcohol or drug abuse patient.[facility] HospitalIn the event this information is protected by the Federal Confidentiality of Alcohol and Drug Abuse Patient Records regulations: The Federal rules restrict any use of the information to criminally investigate or prosecute any alcohol or drug abuse patient.[facility] HospitalIn the event this information is protected by the Federal Confidentiality of Alcohol and Drug Abuse Patient Records regulations: The Federal rules restrict any use of the information to criminally investigate or prosecute any alcohol or drug abuse patient.[facility] HospitalIn the event this information is protected by the Federal Confidentiality of Alcohol and Drug Abuse Patient Records regulations: The Federal rules restrict any use of the information to criminally investigate or prosecute any alcohol or drug abuse patient.[facility] HospitalIn the event this information is protected by the Federal Confidentiality of Alcohol and Drug Abuse Patient Records regulations: The Federal rules restrict any use of the information to criminally investigate or prosecute any alcohol or drug abuse patient.[facility] HospitalIn the event this information is protected by the Federal Confidentiality of Alcohol and Drug Abuse Patient Records regulations: The Federal rules restrict any use of the information to criminally investigate or prosecute any alcohol or drug abuse patient.[facility] HospitalIn the event this information is protected by the Federal Confidentiality of Alcohol and Drug Abuse Patient Records regulations: The Federal rules restrict any use of the information to criminally investigate or prosecute any alcohol or drug abuse patient.[facility] HospitalIn the event this information is protected by the Federal Confidentiality of Alcohol and Drug Abuse Patient Records regulations: The Federal rules restrict any use of the information to criminally investigate or prosecute any alcohol or drug abuse patient.[facility] HospitalIn the event this information is protected by the Federal Confidentiality of Alcohol and Drug Abuse Patient Records regulations: The Federal rules restrict any use of the information to criminally investigate or prosecute any alcohol or drug abuse patient.[facility] HospitalIn the event this information is protected by the Federal Confidentiality of Alcohol and Drug Abuse Patient Records regulations: The Federal rules restrict any use of the information to criminally investigate or prosecute any alcohol or drug abuse patient.[facility] HospitalIn the event this information is protected by the Federal Confidentiality of Alcohol and Drug Abuse Patient Records regulations: The Federal rules restrict any use of the information to criminally investigate or prosecute any alcohol or drug abuse patient.[facility] HospitalIn the event this information is protected by the Federal Confidentiality of Alcohol and Drug Abuse Patient Records regulations: The Federal rules restrict any use of the information to criminally investigate or prosecute any alcohol or drug abuse patient.[facility] HospitalIn the event this information is protected by the Federal Confidentiality of Alcohol and Drug Abuse Patient Records regulations: The Federal rules restrict any use of the information to criminally investigate or prosecute any alcohol or drug abuse patient.[facility] HospitalIn the event this information is protected by the Federal Confidentiality of Alcohol and Drug Abuse Patient Records regulations: The Federal rules restrict any use of the information to criminally investigate or prosecute any alcohol or drug abuse patient.[facility] HospitalIn the event this information is protected by the Federal Confidentiality of Alcohol and Drug Abuse Patient Records regulations: The Federal rules restrict any use of the information to criminally investigate or prosecute any alcohol or drug abuse patient.[facility] HospitalIn the event this information is protected by the Federal Confidentiality of Alcohol and Drug Abuse Patient Records regulations: The Federal rules restrict any use of the information to criminally investigate or prosecute any alcohol or drug abuse patient.[facility] HospitalIn the event this information is protected by the Federal Confidentiality of Alcohol and Drug Abuse Patient Records regulations: The Federal rules restrict any use of the information to criminally investigate or prosecute any alcohol or drug abuse patient.[facility] HospitalIn the event this information is protected by the Federal Confidentiality of Alcohol and Drug Abuse Patient Records regulations: The Federal rules restrict any use of the information to criminally investigate or prosecute any alcohol or drug abuse patient.[facility] HospitalIn the event this information is protected by the Federal Confidentiality of Alcohol and Drug Abuse Patient Records regulations: The Federal rules restrict any use of the information to criminally investigate or prosecute any alcohol or drug abuse patient.[facility] HospitalIn the event this information is protected by the Federal Confidentiality of Alcohol and Drug Abuse Patient Records regulations: The Federal rules restrict any use of the information to criminally investigate or prosecute any alcohol or drug abuse patient.[facility] HospitalIn the event this information is protected by the Federal Confidentiality of Alcohol and Drug Abuse Patient Records regulations: The Federal rules restrict any use of the information to criminally investigate or prosecute any alcohol or drug abuse patient.[facility] HospitalIn the event this information is protected by the Federal Confidentiality of Alcohol and Drug Abuse Patient Records regulations: The Federal rules restrict any use of the information to criminally investigate or prosecute any alcohol or drug abuse patient.[facility] HospitalIn the event this information is protected by the Federal Confidentiality of Alcohol and Drug Abuse Patient Records regulations: The Federal rules restrict any use of the information to criminally investigate or prosecute any alcohol or drug abuse patient.[facility] HospitalIn the event this information is protected by the Federal Confidentiality of Alcohol and Drug Abuse Patient Records regulations: The Federal rules restrict any use of the information to criminally investigate or prosecute any alcohol or drug abuse patient.[facility] HospitalIn the event this information is protected by the Federal Confidentiality of Alcohol and Drug Abuse Patient Records regulations: The Federal rules restrict any use of the information to criminally investigate or prosecute any alcohol or drug abuse patient.[facility] HospitalIn the event this information is protected by the Federal Confidentiality of Alcohol and Drug Abuse Patient Records regulations: The Federal rules restrict any use of the information to criminally investigate or prosecute any alcohol or drug abuse patient.[facility] HospitalIn the event this information is protected by the Federal Confidentiality of Alcohol and Drug Abuse Patient Records regulations: The Federal rules restrict any use of the information to criminally investigate or prosecute any alcohol or drug abuse patient.[facility] HospitalIn the event this information is protected by the Federal Confidentiality of Alcohol and Drug Abuse Patient Records regulations: The Federal rules restrict any use of the information to criminally investigate or prosecute any alcohol or drug abuse patient.[facility] Reason for Visit (unrecogniz ed section and content) Specialty Diagnoses / Procedures Referred By Contmaryuri t Referred To Contact Neurology / NEUROLOGY Diagnoses Follow up, results review/ patient needing 60 minute appt per [facility] Procedures OFFICE/OUTPATIENT [facility] 60-74 MINUTES GHADA NO MEDICAL Asiya John APRN.BASE MANAGER [address] [place] [address] Asiya John APRN.BASE MANAGER [address] [place] [address] Referral ID Status Reason Start Date Expiration Date Visits Re quested Visits Authorized [id number] Closed 06/27/2021 04/19/2022 1 1 Reason Comments [...] MDM 60-74 MINUTES NEW MEDICAL Asiya John, SENIOR HEALTH PHYSICS TECHNICIAN.BASE MANAGER [address] [place] [address] Asiya John, SENIOR HEALTH PHYSICS TECHNICIAN.BASE MANAGER [address] [place] [address] Reason Comments Orders New order needed Reason [...] PELVIC NONOBSTETRIC IMAGE DCMTN LIMITED/F/U Bobby Doherty, SENIOR HEALTH PHYSICS TECHNICIAN.TRAINING ANALYST [address] [place] [id number] [facility] Referral ID Status Reason Start Date Expiration Date V isits Requested Visits Authorized [id number] Closed Auto-Generate d Referral 01/14/2022 02/13/2023 1 1 Reason Comments Appointment Reason Onset Date Comments Refill Request 02/11/2022 Reason Comments Consult Specialty Diagnoses / Procedures Referred By Contac t Referred To Contact Urology Diagnoses Parkinson's disease (HCC) Dementia without behavioral disturbance, unspecified dementia type Urinary incontinence, unspecified type Procedures CONSULT TO UROLOGY OFFICE/OUTPATIENT NEW HIGH MDM 60-74 MINUTES Doherty, Bobby, SENIOR HEALTH PHYSICS TECHNICIAN.TRAINING ANALYST [address] [place] [address] Referral ID Status Reason Start Date Expiration Date V isits Requested Visits Authorized [id number] Closed PCP Requested Referral 01/14/2022 01/14/2023 1 1 Reason Onset Date Comments Refill Request 03/11/2022 Reason Onset Date Comments Refill Request 04/07/2022 Reason Comments F/U 6 months Reason Comments Follow Up Specialty Diagnoses / Procedures Referred By Sandy t Referred To Contact Neurology / NEUROLOGY Diagnoses 4 Month Follow up Procedures EST NI PATIENT Asiya John, SENIOR HEALTH PHYSICS TECHNICIAN.BASE MANAGER [address] [place] [address] Asiya John, SENIOR HEALTH PHYSICS TECHNICIAN.BASE MANAGER [address] [place] [address] Referral ID Status Reason Start Date Expiration Date V isits Requested Visits Authorized [id number] Pending Review 05/15/2022 04/19/2023 1 1 Reason Comments Forms Reason Onset Date Comments Refill Request 06/04/2022 Reason Comments Refill Request Reason Comments Letter Reason Comments Hospital F/U [facility] discharge on 05/21 Reason Onset Date Comments Refill Request 07/16/2022 Reason Onset Date Comments Refill Request 08/15/2022 Reason Onset Date Comments Refill Request 08/25/2022 Reason Onset Date Comments Refill Request 10/07/2022 Reason Comments F/U 3 Month Reason Comments Opened In Error Reason Comments Medication Problem Insurance Authorization Reason Comments 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 Reason Comments Patient Update Reason Comments Home Care Reason Comments HH Plan Of Care HH Orders Reason Comments HH Orders Reason Onset Date Comments Refill Request 12/31/2022 Reason Comments Physcial Therapy Plan of Care Reason Onset Date Comments Home Care Management 01/06/2023 [facility] 12/09/2022-02/06/2023 Reason Comments Follow for PT HHC Reason Comments New Patient Reason Comments Letter Letter is for both p t and spouse Reason Comments Medication Request Reason Comments Rx refill; not on current med list Reason Comments PT plan of care Care Teams (unrecognized sec tion and content) Head Of Acquisitions Relationship Specialty Start Date End Date Lai Turcios MD [address] [facility] [place] [address] PCP - General Internal Medicine 09/24/21 Head Of Acquisitions Relationship Specialty Start Date End Date Lai Turcios MD [facility] [place] [address] PCP - General Internal Medicine 09/24/21 Head Of Acquisitions Relationship Specialty Start Date End Date Lai Turcios MD [address] [place] [address], [place] [address] PCP - General Internal Medicine 09/24/21 Head Of Acquisitions Relationship Specialty Start Date End Date Lai Turcios MD [address] [place] [address], [place] [address] PCP - General Internal Medicine 09/24/21 Head Of Acquisitions Relationship Specialty Start Date End Date Lai Turcios MD [address] [place] [address], [place] [address] PCP - General Internal Medicine 09/24/21 Head Of Acquisitions Relationship Specialty Start Date End Date Lai Turcios MD [address] [place] [address], [place] [address] PCP - General Internal Medicine 09/24/21 Head Of Acquisitions Relationship Specialty Start Date End Date Lai Turcios MD [address] [place] [address], [place] [address] PCP - General Internal Medicine 09/24/21 Head Of Acquisitions Relationship Specialty Start Date End Date Lai Turcios MD [address] [place] [address], [place] [address] PCP - General Internal Medicine 09/24/21 Head Of Acquisitions Relationship Specialty Start Date End Date Lai Turcios MD [address] [place] [address], [place] [address] PCP - General Internal Medicine 09/24/21 Head Of Acquisitions Relationship Specialty Start Date End Date Lai Turcios MD [address] [facility] [place] [address] PCP - General Internal Medicine 09/24/21 Head Of Acquisitions Relationship Specialty Start Date End Date Lai Turcios MD [address] [place] [address], [place] [address] PCP - General Internal Medicine 09/24/21 Head Of Acquisitions Relationship Specialty Start Date End Date Lai Turcios MD [address] [place] [address], [place] [address] PCP - General Internal Medicine 09/24/21 Head Of Acquisitions Relationship Specialty Start Date End Date Lai Turcios MD [address] [place] [address], [place] [address] PCP - General Internal Medicine 09/24/21 Head Of Acquisitions Relationship Specialty Start Date End Date Lai Turcios MD [address] [place] [address], [place] [address] PCP - General Internal Medicine 09/24/21 Head Of Acquisitions Relationship Specialty Start Date End Date Lai Turcios MD [address] [place] [address], [place] [address] PCP - General Internal Medicine 09/24/21 Head Of Acquisitions Relationship Specialty Start Date End Date Lai Turcios MD [address] [place] [address], [place] [address] PCP - General Internal Medicine 09/24/21 Head Of Acquisitions Relationship Specialty Start Date End Date Lai Turcios MD [address] [place] [address], [place] [address] PCP - General Internal Medicine 09/24/21 Head Of Acquisitions Relationship Specialty Start Date End Date Lai Turcios MD [address] [facility] [place] [address] PCP - General Internal Medicine 09/24/21 Head Of Acquisitions Relationship Specialty Start Date End Date Lai Turcios MD [address] [place] [address] PCP - General Internal Medicine 09/24/21 Head Of Acquisitions Relationship Specialty Start Date End Date Lai Turcios MD [address] [place] [address] PCP - General Internal Medicine 09/24/21 Head Of Acquisitions Relationship Specialty Start Date End Date Lai Turcios MD [address] [place] [address] PCP - General Internal Medicine 09/24/21 Head Of Acquisitions Relationship Specialty Start Date End Date Lai Turcios MD [address] [place] [address] PCP - General Internal Medicine 09/24/21 Head Of Acquisitions Relationship Specialty Start Date End Date Lai Turcios MD [address] [place] [address] PCP - General Internal Medicine 09/24/21 Head Of Acquisitions Relationship Specialty Start Date End Date Lai Turcios MD [address] [place] [address] PCP - General Internal Medicine 09/24/21 Head Of Acquisitions Relationship Specialty Start Date End Date Lai Turcios MD [address] [place] [address] PCP - General Internal Medicine 09/24/21 Head Of Acquisitions Relationship Specialty Start Date End Date Lai Turcios MD [address] [facility] [place] [address] PCP - General Internal Medicine 09/24/21 Head Of Acquisitions Relationship Specialty Start Date End Date Lai Turcios MD [address] [facility] [place] [address] PCP - General Internal Medicine 09/24/21 Head Of Acquisitions Relationship Specialty Start Date End Date Lai Turcios MD [address] [facility] [place] [address] PCP - General Internal Medicine 09/24/21 Head Of Acquisitions Relationship Specialty Start Date End Date Lai Turcios MD [address] [facility] [place] [address] PCP - General Internal Medicine 09/24/21 Head Of Acquisitions Relationship Specialty Start Date End Date Lai Turcios MD [address] [facility] [place] [address] PCP - General Internal Medicine 09/24/21 Head Of Acquisitions Relationship Specialty Start Date End Date Lai Turcios MD [address] [facility] [place] [address] PCP - General Internal Medicine 09/24/21 Head Of Acquisitions Relationship Specialty Start Date End Date Lai Turcios MD [address] [facility] [place] [address] PCP - General Internal Medicine 09/24/21 Head Of Acquisitions Relationship Specialty Start Date End Date Lai Turcios MD [address] [facility] [place] [address] PCP - General Internal Medicine 09/24/21 Head Of Acquisitions Relationship Specialty Start Date End Date Lai Turcios MD [address] [place] [address] PCP - General Internal Medicine 09/24/21 Head Of Acquisitions Relationship Specialty Start Date End Date Lai Turcios MD [address] [place] [address] PCP - General Internal Medicine 09/24/21 FOR [...] BE BASED ON THE PRIMARY CLINICAL RECORDS. [facility]. provides no warranty or guarantee of the accuracy or completeness of information in this document.
[2023-06-23 23:30] VITALS: BP 123/73; PULSE 83; RESP 18; TEMP 36.6; O2SAT 97
[2023-06-23 23:32] VITALS: BMI 24.5
[2023-06-24] VITALS (7 sets, daily range): BP systolic 101–130; BP diastolic 53–83; PULSE 59–100; RESP 16–18; TEMP 36.5–36.6; O2SAT 93–98; BMI 25.3
[2023-06-24 00:41] LABS: Reflex Lactate? Y
[2023-06-24] MEDS: 0.9% Normal Saline (1000mL) 1,000 ML 100 ML IV ×2 (00:58→10:56)
[2023-06-24 00:59] LABS: Bedside Glucose 112 mg/dL (74-106)
[2023-06-24] MEDS: Levothyroxine 50 MCG Tablet PO (05:44)
[2023-06-24 06:25] LABS: Bedside Glucose 121 mg/dL (74-106)
[2023-06-24 07:22] LABS: Absolute Lymphocyte Count 1.81 X10^3/uL (0.83-4.51); Absolute Neutrophil Count 10.5 X10^3/uL (2.0-7.7); Basophil# 0.05 X10^3/uL; Basophil% 0.4 % (0-1); Eosinophil# 0.01 X10^3/uL; Eosinophils% 0.1 % (0-5); Lymphocyte # 1.81 X10^3/ul (0.83-4.51); Lymphocyte % 12.8 % (19-41); Mean Corp Hgb Conc 32.3 g/dL (32-36); Mean Corpuscular Hgb 28.7 pg (27.0-32.0); Mean Corpuscular Volume 88.8 fL (81-99); Mean Platelet Vol. 10.2 fl (6.2-12.0); Monocyte# 1.69 X10^3/uL; Monocyte% 11.9 % (0-10); NRBC Flagged by Analyzer 0 % (0-5); Neutrophil # 10.51 X10^3/uL (2.7-7.7); Neutrophil % 74.2 % (47-70); POSITIVE DIFFERENTIAL YES; Platelet Count 217 K/mm3 (150-450); RBC Distribution Width CV 13.9 % (11.6-14.6); Red Blood Count 3.49 M/mm3 (4.2-5.4); White Blood Count 14.2 K/mm3 (4.4-11.0)
--- NOTE | 2023-06-24 07:26 | PN.HOSP_ITS ---
Reason for Visit Reason for Visit: Diagnoses Urinary tract infection, site not specified (06/23/23) Objective Data Objective Data Vital Signs: Vital Signs Temp Pulse Resp BP Pulse Ox O2 Del Method 97.8 F 89 18 127/67 H 97 Room Air 06/23/23 23:30 06/24/23 06:11 06/23/23 23:30 06/24/23 06:11 06/23/23 23:30 06/24/23 02:56 Oxygen Delivery Method Room Air Weight: 132 lb 11.492 oz Body Mass Index (BMI) 24.5 Intake & Output: Intake and Output for Last 24 Hours 06/22/23 06/23/23 06/24/23 23:59 23:59 23:59 Intake Total 1550 / 1550 Output Total 450 / 450 Balance 1100 / 1100 Lab / Micro Data 06/23/23 19:50 06/24/23 06:45 Labs: Laboratory Results - last 24 hr 06/23/23 19:50: WBC 18.3 H, RBC 4.02 L, Hgb 11.5 L, Hct 35.5 L, MCV 88.3, MCH 28.6, MCHC 32.4, RDW Std Deviation 44.5 H, RDW Coeff of Festus 13.8, Plt Count 255, MPV 10.0, Immature Gran % (Auto) 0.700, Neut % (Auto) 86.1 H, Lymph % (Auto) 4.1 L, [place] % (Auto) 8.6, Eos % (Auto) 0.1, Baso % (Auto) 0.4, Absolute Neuts (auto) 15.8 H, Absolute Lymphs (auto) 0.75 L, Nucleated RBC % 0, Differential Comment SEE COMMENT, Diff Path Review May foll, Platelet Estimate ADEQUATE, RBC Morphology N CHROM, Anisocytosis RARE, Macrocytosis RARE, Ovalocytes RARE, Sodium 136, Potassium 4.2, Chloride 108 H, Carbon Dioxide 18.0 L, Anion Gap 10, BUN 44 H, Creatinine 1.75 H, Estim Creat Clear Calc 22.73, Est GFR (MDRD) Af Amer 36 L, Est GFR (MDRD) Non-Af 30 L, BUN/Creatinine Ratio 25.1 H, Glucose 229 H, Calcium 9.2, Total Bilirubin 0.80, AST 9 L, ALT < 6 L, Alkaline Phosphatase 84, Total Protein 7.8, Albumin 3.1 L, Globulin 4.7 H, Albumin/Globulin Ratio 0.7 L 06/23/23 20:02: Urine Color Yellow, Urine Clarity Cloudy, Urine pH 5.0, Ur Specific [place] 1.015, Urine Protein 30 H, Urine Glucose (UA) Normal, Urine Ketones Negative, Urine Occult Blood 250 H, Urine Nitrite Negative, Urine Bilirubin Negative, Urine Urobilinogen Normal, Ur Leukocyte Esterase 500 H, Urine RBC 50-100 SEEN, Urine WBC >100 SEEN, Ur Squamous Epith Cells 0 SEEN, Urine Bacteria 1+, Urine Mucus 0 SEEN 06/23/23 20:36: Lactic Acid 3.4 H* 06/24/23 00:29: POC Glucose 112 H 06/24/23 01:11: Lactic Acid 2.0 06/24/23 06:03: POC Glucose 121 H Radiography Diagnostic Testing: Radiology Impression Chest X-Ray 06/23/23 20:45 IMPRESSION: No radiographic evidence of acute cardiopulmonary disease. Electronically Signed: Angelo Clark MD at 21:24 EST , Rhythm Strip Rhythm Strip: Sinus Rhythm Rate: 88 Ectopy: None Physical Exam Narrative Seen and examined. Patient looks frail and weak. She has history of Parkinson disease. Denies burning pain or irritation near the urinary tract. She also has constipation but could not give detailed history regarding frequency of bowel movement or severity. History of dementia Physical exam General: Alert, Oriented x3, Cooperative HEENT: Atraumatic, PERRLA, EOMI, Normocephalic Oral: No Gingival or Mucosal Lesions/ Ulcerations Neck: Supple, No JVD, Negative Carotid Bruits Chest wall/Lungs: Air entry diminished in bilateral lung bases. No crepitation/rhonchi Cardiovascular: Regular rate, Regular Rhythm, Normal S1, Normal S2, No M/G/R Abdomen: Bowel Sounds Present, Soft, Non Tender, Non-Distended : No dysuria. No renal angle tenderness. No suprapubic tenderness. Extremities: No edema, Capillary Refill Less than 3 Seconds Skin: No rashes, No breakdown Musculoskeletal: No Tenderness to Palpation of Joints or Extremities Neurological: Cranial nerves II-XII grossly intact, DTR 2+/4. No acute focal neurological deficit. Psych/Mental Status: Normal Affect, Appropriate. Assessment & Plan Assessment/Plan (1) Urinary tract infection: PLAN: Plan The patient is a 78 y/o F was admitted with history of worsening of generalized weakness, fatigue fell on the floor while walking to the bathroom. Denies major injury or hitting head. No recent vomiting or diarrhea. No fever. History of Parkinson's disease and dementia. #1. Acute encephalopathy secondary to acute complicated UTI with lactic acidosis: On review of chart, hypotension not noted but blood pressure was low 108/61, 101/55. On IV cefepime. Monitor intake and output. Blood cultures x 2 sent in ED. PT and OT ordered. 06/23: Patient cannot tell her date of and year oriented to time and place but could not recall how long she did not had bowel movement therefore I think she has mild dementia. Acute encephalopathy resolved #2. Parkinson's disease with underlying associated dementia: Complicates presentation, will continue patient home Sinemet, memantine home regimen, maintain on fall precaution, PT/OT/case management consulted for discharge planning. #3. CAD: Status post CABG remotely, continue aspirin, statin, metoprolol, not on KLAUDIA/ARB. #4. Anxiety and depression: continue patient home low-dose lorazepam, risperi done home regimen. #5. Chronic Kidney Disease Stage 4: Admission BUN/Cr 44/1.75, baseline renal f unction 1.7-1.8 however last labs noted primarily -01/2023.Her creatinine clearance has been less than 30 mill per minute since May 202206/23: Kidney function improved from 1.75-1.37. #6. Chronic normocytic anemia: Admission hemoglobin 11.5, MCV 88.3, baseline hemoglobin primarily 9 range however last noted 01/21/2023 hemoglobin 9.5, continue to trend. #7. Hypertension: Continue home regimen including metoprolol as BP allows, PRN hydralazine. #8. Hypothyroidism: continue patient home levothyroxine regimen. #9. Hyperlipidemia: continue patient on statin therapy. #10. Diabetes mellitus type II: Hold oral home regimen, ADA diet, accu checks w/ ISS. #11. History of TIA: Will continue patient aspirin, statin, metoprolol home regimen, temporally holding oral diabetic regimen with insulin sliding scale as noted. #12. Former tobacco use: Encourage continued tobacco cessation. #13. GERD: as needed Mylanta regimen. #14. DVT prophylaxis: Heparin. #15. CODE status: Patient HCPOA and living will are technically not in place but her with whom she lives is her decision-maker and discussed her current presentation with him at length. Discussed CODE status at length including difference between FULL code, DNR-CCA and DNR-CC status. Following discussions about the differences in these status, requested Full Code status. Charges/Coding Visit Charges Inpatient E&M: 83142 Subs Hosp L2
[2023-06-24 07:52] LABS: ALB/GLOB Ratio 0.6 RATIO (0.9-2.4); AST(SGOT) 10 U/L (15-37); Alanine Aminotransfer ALT/SGPT 9 U/L (13-56); Albumin, Serum 2.6 g/dL (3.2-5.0); Alkaline Phosphatase 71 U/L (45-117); Anion Gap 8 (5-15); BUN 29 mg/dL (7-18); BUN/Creat Ratio 21.2 RATIO (10-20); Calcium,Total 8.4 mg/dL (8.5-10.1); Chloride 111 mmol/L (98-107); Creatinine, Serum 1.37 mg/dL (0.55-1.02); EST Glomerular Filtration Rate 40 mL/min (>60); Est Glom Filt Rate - Afr Amer 48 mL/min (>60); Estimated Creatinine Clearance 28.64 ml/min; Glucose 123 mg/dL (74-106); Potassium 3.5 mmol/L (3.5-5.1); Protein, Total 6.6 g/dL (6.4-8.2); Sodium Level 140 mmol/L (136-145)
[2023-06-24 08:32] LABS: Differential Indicated SCAN CRITERIA MET
[2023-06-24] MEDS: Senna/Docusate Sodium 1 Tablet 2 TABLET PO (08:34)
[2023-06-24] MEDS: Acetaminophen 325 MG Tablet 650 MG PO (08:34)
[2023-06-24] MEDS: Carbidopa/Levodopa 25/100 Tablet PO ×3 (08:36→17:30)
[2023-06-24] MEDS: Aspirin 81 MG TAB.CHEW PO (08:37)
[2023-06-24] MEDS: Heparin Injection (Vial) 5,000 UNIT/ML VIAL 5000 UNIT SC ×2 (08:38→23:09)
[2023-06-24] MEDS: Tolterodine Tartrate 2 MG CAP.SA PO (08:38)
[2023-06-24] MEDS: Metoprolol Tartrate 25 MG Tablet PO ×2 (08:39→23:19)
[2023-06-24] MEDS: Memantine Hydrochloride 10 MG Tablet PO ×2 (08:40→23:10)
[2023-06-24] MEDS: RisperiDONE 0.5 MG Tablet PO ×2 (08:40→23:10)
[2023-06-24] MEDS: Menthol/Lanolin/Calamine/Znox 113 GM Tube 1 APPLIC TOPICAL ×2 (08:46→23:09)
[2023-06-24] MEDS: Cefepime HCl 2 GM in 0.9% Normal Saline (100mL MB+) 100 ML IV (10:55)
[2023-06-24 11:21] LABS: Bedside Glucose 196 mg/dL (74-106)
[2023-06-24] MEDS: Insulin Lispro 100 UNIT/ML INSULN.PEN SC ×2 (12:24→17:33)
--- NOTE | 2023-06-24 14:40 | CASEMGMT ---
RN?CM?COMMUNICATION ELECTRONIC TECHNICIAN?CM?to room to meet with patient for initial transition planning/care coordination?assessment.?RN?CM?introduced self and role at [facility].? Pt voices understanding and consents to?assessment?at this time.? Pt resting in bed in no distress at this time.? at bedside. Pt is alert at this time and oriented x 1-2 per handoff. Pt able to answer some questions. provided most of the information. Care providers, pharmacy, and demographics verified/updated at this time. PCP: Dr John Specialists: Dr Garcia-urology, [facility]/Renee-neurology Preferred Pharmacy: [facility] Retail @ discharge Insurance: [employer] MCR HMO Prescription Benefit:?Yes Living Will/HPOA:?Pt has not completed LW or HCPOA LNOK: , Jeet. 2 sons: Roland and Fercho. Sister, Julia Living Arrangements: Pt lives w/her in 1st floor apt w/no steps to enter. manages pt's medication and appts and does home mgnt tasks. They hire private-duty aide to bath pt weekly (Saturdays). states they go out to eat almost daily, as he does not do much cooking. Transportation:? DME: Has the following DME:?built-in shower seat, grab bars, hand-held shower, rollator ? states no need for further DME at this time.? HHC/SNF: No hx of SNF. Pt has had [facility] in the past. states would like [facility] again and declines wanting list of other HHC options unless [facility] unable to accept. Order placed for HHC: SN, PT/OT, and aide, if available. Shirley, discharge retail planning manager, made aware of request and to sent referral to [facility] via [facility]. Pt and wish for pt to return home and states has no concerns with going home at time of discharge.?CM?to follow for any further discharge planning/needs.? Pt and voice no further concerns/needs at this time.? PLAN:??Home w/HHC and spousal support. Scotty PHANN?RN?CM
--- NOTE | 2023-06-24 14:57 | CASEMGMT ---
Addendum entered by Shirley Perry 06/24/23 15:32: Patient has been accepted by [facility]. RN CM updated. Shirley Perry, Discharge Planning Asst. Original Note: Discharge Planning Referral sent to [facility] via [facility]. Shirley Perry, Discharge Planning Asst.
[2023-06-24] MEDS: Vancomycin IV 1,000 MG/200 ML BAG 200 MG IV (17:30)
--- NOTE | 2023-06-24 17:44 | PCM.RX.CS ---
Consult Antibiotic Management Pharmacy has been consulted to manage selected antibiotic: Vancomycin Type of Intervention Type of Consult: New start Suspected Infection Suspected Infection: Bacteremia Labs Labs: Sodium 140 mmol/L (136-145) 06/24/23 06:45 Potassium 3.5 mmol/L (3.5-5.1) 06/24/23 06:45 Chloride 111 mmol/L (98-107) H 06/24/23 06:45 Carbon Dioxide 21.0 mmol/L (21.0-32.0) 06/24/23 06:45 Anion Gap 8 (5-15) 06/24/23 06:45 BUN 29 mg/dL (7-18) H 06/24/23 06:45 Creatinine 1.37 mg/dL (0.55-1.02) H 06/24/23 06:45 Est GFR (MDRD) Af Amer 48 mL/min (>60) L 06/24/23 06:45 Est GFR (MDRD) Non-Af 40 mL/min (>60) L 06/24/23 06:45 BUN/Creatinine Ratio 21.2 RATIO (10-20) H 06/24/23 06:45 Glucose 123 mg/dL (74-106) H 06/24/23 06:45 Microbiology Microbiology: Microbiology 06/23/23 20:36 Blood Culture (Wb) - Anticubital Left Blood Culture - Preliminary 06/23/23 20:02 Urine Catheter - Catheter Urine Culture - Preliminary Presumptive E. coli Pharmacy Plan for Drug Dosing Pharmacy Plan for Drug Dosing: NEW START IV VANCOMYCIN Consulting Physician: Dr. Pierson Indication: r/o bactermia (Bcx 1/2 growing GPC) Goal Trough: 15-20 SrCr: 1.37 CrCl: 28 mL/min Comments: Patient ordered initial dose of vancomycin 1000mg IV x1 administered 06/23 @1730 Vancomycin Dose: 750mg IV Q24hr to start 06/25/23 @1700 Pending Level: 06/26/23 @1630, prior to 3rd total dose per protocol Pharmacy Service will continue to monitor and adjust dosing as required.
[2023-06-24 17:57] LABS: Bedside Glucose 164 mg/dL (74-106)
[2023-06-24] MEDS: Atorvastatin Calcium 10 MG Tablet PO (23:10)
[2023-06-25 01:07] LABS: Bedside Glucose 142 mg/dL (74-106)
[2023-06-25 04:17] VITALS: BMI 25.0
[2023-06-25 05:00] VITALS: BP 127/54; PULSE 63; RESP 18; TEMP 36.1; O2SAT 97
--- NOTE | 2023-06-25 05:55 | ECHOD_ITS ---
Reason For Study: BACTEREMIA Procedure This was a 2D Doppler, Color Flow transthoracic echocardiogram. Exam performed portable in patient room. Left Ventricle Normal size and thickness. The left ventricular ejection fraction is 60 %. Stage 1 diastolic dysfunction. Right Ventricle Normal right ventricle. Atria The left and right atria are normal. Mitral Valve Mild focal mitral valve calcification of the anterior leaflet. Tricuspid Valve Trivial tricuspid valve insufficiency. Normal pulmonary artery pressure. Aortic Valve Trisinus/trileaflet aortic valve. Pulmonic Valve The pulmonic valve is not well visualized. Great Vessels Normal sized aortic root. MMode/2D Measurements & Calculations LVIDd: 3.5 cm IVSd: 1.2 cm Ao root diam: 3.2 cm LVIDs: 2.5 cm LVPWd: 1.2 cm RVDd: 2.9 cm FS: 30.6 % LAV(MOD-bp): 22.5 ml LVAd ap4: 20.9 cm2 SV(MOD-sp4): 31.9 ml LAV(MOD-bp) Indexed: 14.0 ml/m2 LVLd ap4: 6.8 cm LAV(MOD-sp2): 23.6 ml EDV(MOD-sp4): 53.2 ml LAV(MOD-sp4): 18.4 ml EDV(sp4-el): 54.4 ml LVAs ap4: 11.7 cm2 LVLs ap4: 5.5 cm ESV(MOD-sp4): 21.3 ml ESV(sp4-el): 21.1 ml EF(MOD-sp4): 59.9 % EF(sp4-el): 61.1 % SV(sp4-el): 33.2 ml LA dimension(2D): 2.6 cm LA A4 area: 10.6 cm2 RA A4 area: 10.4 cm2 TAPSE: 1.4 cm Time Measurements MV dec time: 0.21 sec Doppler Measurements & Calculations MV E max garrick: 63.0 cm/sec Lat Peak E' Garrick: 9.1 cm/sec Med Peak E' Garrick: 8.2 cm/sec MV A max garrick: 93.1 cm/sec E/E' lat: 6.9 E/E' med: 7.7 MV E/A: 0.68 Ao V2 max: 130.4 cm/sec LV V1 max: 106.9 cm/sec PA V2 max: 86.8 cm/sec Ao max P.8 mmHg LV V1 max P.6 mmHg TR max garrick: 234.5 cm/sec TR max P.0 mmHg ECHO/Echo Complete Interpretation Summary The left ventricular ejection fraction is 60 %. Stage 1 diastolic dysfunction. Mild focal mitral valve calcification of the anterior leaflet. No valvular vegetations noted on this surface echocardiogram. Consider transeso phageal echocardiogram for further evaluation if clinically indicated. Ordering Physician: Savage Pierson Referring Physician: LAI TURCIOS Performed By: Bonnie Espino RDCS
[2023-06-25] MEDS: Levothyroxine 50 MCG Tablet PO (06:09)
[2023-06-25] MEDS: Carbidopa/Levodopa 25/100 Tablet PO ×3 (06:09→16:27)
[2023-06-25 06:43] LABS: Bedside Glucose 130 mg/dL (74-106)
[2023-06-25 07:32] VITALS: O2SAT 94
[2023-06-25 09:47] VITALS: BP 100/55; PULSE 71; RESP 18; TEMP 36.6; O2SAT 96
[2023-06-25] MEDS: Aspirin 81 MG TAB.CHEW PO (09:48)
[2023-06-25] MEDS: Memantine Hydrochloride 10 MG Tablet PO ×2 (09:49→21:23)
[2023-06-25] MEDS: RisperiDONE 0.5 MG Tablet PO ×2 (09:49→21:22)
[2023-06-25] MEDS: Heparin Injection (Vial) 5,000 UNIT/ML VIAL 5000 UNIT SC ×2 (09:49→21:21)
[2023-06-25] MEDS: Menthol/Lanolin/Calamine/Znox 113 GM Tube 1 APPLIC TOPICAL ×2 (09:49→21:21)
[2023-06-25] MEDS: Tolterodine Tartrate 2 MG CAP.SA PO (09:49)
[2023-06-25] MEDS: Cefepime HCl 2 GM in 0.9% Normal Saline (100mL MB+) 100 ML IV (09:50)
[2023-06-25] MEDS: 0.9% Saline Lock 10 ML Syringe IV ×2 (09:56→16:25)
--- NOTE | 2023-06-25 10:09 | PCM.PN.HOSP ---
Reason for Visit Reason for Visit: Diagnoses Urinary tract infection, site not specified (06/23/23) Objective Data Objective Data Vital Signs: Vital Signs Temp Pulse Resp BP Pulse Ox O2 Del Method 97.9 F 71 18 100/55 L 96 Room Air 06/25/23 09:47 06/25/23 09:47 06/25/23 09:47 06/25/23 09:47 06/25/23 09:47 06/25/23 09:47 Oxygen Delivery Method Room Air Weight: 136 lb 0.403 oz Body Mass Index (BMI) 25.0 Intake & Output: Intake and Output for Last 24 Hours 06/23/23 06/24/23 06/25/23 23:59 23:59 23:59 Intake Total 3396.67 / 3696.67 650 / 650 Output Total 950 / 950 400 / 400 Balance 2446.67 / 2746.67 250 / 250 Lab / Micro Data 06/25/23 11:24 06/25/23 11:24 Labs: Laboratory Results - last 24 hr 06/24/23 11:02: POC Glucose 196 H 06/24/23 17:33: POC Glucose 164 H 06/24/23 23:19: POC Glucose 142 H 06/25/23 06:12: POC Glucose 130 H Micro: Microbiology 06/23/23 21:19 Blood Culture (Wb) - Anticubital Left Blood Culture - Preliminary Coag Negative Staph 06/23/23 20:36 Blood Culture (Wb) - Anticubital Left Bacteria Detection (PCR) - Final Staphylococcus epidermidis mecA Resistance Marker 06/23/23 20:36 Blood Culture (Wb) - Anticubital Left Blood Culture - Preliminary Staphylococcus epidermidis 06/23/23 20:02 Urine Catheter - Catheter Urine Culture - Final Presumptive E. coli Rhythm Strip Rhythm Strip: Sinus Rhythm Rate: 88 Ectopy: None Physical Exam Narrative Seen and examined. Patient looks frail and weak. She has history of Parkinson disease and advanced dementia. Denies burning pain or irritation near the urinary tract. Does not remember when she had last bowel movement she also has constipation but could not give detailed history regarding frequency of bowel movement or severity. Physical exam General: Awake oriented x 1 but seems chronic because of dementia, Cooperative HEENT: Atraumatic, PERRLA, EOMI, Normocephalic Oral: No Gingival or Mucosal Lesions/ Ulcerations Neck: Supple, No JVD, Negative Carotid Bruits Chest wall/Lungs: Air entry diminished in bilateral lung bases. No crepitation/rhonchi Cardiovascular: Regular rate, Regular Rhythm, Normal S1, Normal S2, No M/G/R Abdomen: Bowel Sounds Present, Soft, Non Tender, Non-Distended : No dysuria. No renal angle tenderness. No suprapubic tenderness. Extremities: No edema, Capillary Refill Less than 3 Seconds Skin: No rashes, No breakdown Musculoskeletal: No Tenderness to Palpation of Joints or Extremities Neurological: Cranial nerves II-XII grossly intact, DTR 2+/4. No acute focal neurological deficit. Psych/Mental Status: Flat affect. Anterograde and retrograde amnesia Assessment & Plan Assessment/Plan (1) Urinary tract infection: PLAN: Plan The patient is a 78 y/o F was admitted with history of worsening of generalized weakness, fatigue fell on the floor while walking to the bathroom. Denies major injury or hitting head. No recent vomiting or diarrhea. No fever. History of Parkinson's disease and dementia. #1. Acute encephalopathy secondary to acute complicated UTI with lactic acidosis: On review of chart, hypotension not noted but blood pressure was low 108/61, 101/55. On IV cefepime. Monitor intake and output. Blood cultures x 2 sent in ED. PT and OT ordered. 06/23: Patient cannot tell her date of and year disoriented to time and place but could not recall how long she did not had bowel movement therefore I think she has mild dementia. Acute encephalopathy resolved 06/24: Chronic dementia and does not remember time and place. I think she is on baseline. Blood culture shows MRSA bacteremia on vancomycin that was started yesterday. E. coli UTI, IV antibiotic narrowed down to Keflex for 5 days of total antibiotic. #2. Parkinson's disease with underlying associated dementia: Complicates presentation, will continue patient home Sinemet, memantine home regimen, maintain on fall precaution, PT/OT/case management consulted for discharge planning. #3. CAD: Status post CABG remotely, continue aspirin, statin, metoprolol, not on KLAUDIA/ARB. #4. Anxiety and depression: continue patient home low-dose lorazepam, risperidone home regimen. #5. Chronic Kidney Disease Stage 4: Admission BUN/Cr 44/1.75, baseline renal function 1.7-1.8 however last labs noted primarily 9-01/2023.Her creatinine clearance has been less than 30 mill per minute since May 202206/23: Kidney function improved from 1.75-1.37. #6. Chronic normocytic anemia: Admission hemoglobin 11.5, MCV 88.3, baseline hemoglobin primarily 9 range however last noted 01/21/2023 hemoglobin 9.5, continue to trend. #7. Hypertension: Continue home regimen including metoprolol as BP allows, PRN hydralazine. #8. Hypothyroidism: continue patient home levothyroxine regimen. #9. Hyperlipidemia: continue patient on statin therapy. #10. Diabetes mellitus type II: Hold oral home regimen, ADA diet, accu checks w/ ISS. #11. History of TIA: Will continue patient aspirin, statin, metoprolol home regimen, temporally holding oral diabetic regimen with insulin sliding scale as noted. #12. Former tobacco use: Encourage continued tobacco cessation. #13. GERD: as needed Mylanta regimen. #14. DVT prophylaxis: Heparin. #15. CODE status: Patient HCPOA and living will are technically not in place but her with whom she lives is her decision-maker and discussed her current presentation with him at length. Discussed CODE status at length including difference between FULL code, DNR-CCA and DNR-CC status. Following discussions about the differences in these status, requested Full Code status. Charges/Coding Visit Charges Inpatient E&M: 30054 Subs Hosp L2
[2023-06-25] MEDS: Insulin Lispro 100 UNIT/ML INSULN.PEN SC ×2 (11:33→21:29)
[2023-06-25 11:37] LABS: Absolute Lymphocyte Count 0.94 X10^3/uL (0.83-4.51); Basophil# 0.04 X10^3/uL; Basophil% 0.6 % (0-1); Eosinophil# 0.18 X10^3/uL; Eosinophils% 2.6 % (0-5); Hematocrit 32.8 % (37-47); Hemoglobin 10.4 g/dL (12.0-15.0); Lymphocyte # 0.94 X10^3/ul (0.83-4.51); Lymphocyte % 13.6 % (19-41); Mean Corp Hgb Conc 31.7 g/dL (32-36); Mean Corpuscular Hgb 28.8 pg (27.0-32.0); Mean Corpuscular Volume 90.9 fL (81-99); Mean Platelet Vol. 10.1 fl (6.2-12.0); Monocyte# 0.66 X10^3/uL; Monocyte% 9.6 % (0-10); NRBC Flagged by Analyzer 0 % (0-5); Neutrophil # 5.04 X10^3/uL (2.7-7.7); Neutrophil % 72.9 % (47-70); Platelet Count 215 K/mm3 (150-450); RBC Distribution Width CV 14.2 % (11.6-14.6); RBC Distribution Width SD 47.4 fl (35.1-43.9); Red Blood Count 3.61 M/mm3 (4.2-5.4); White Blood Count 6.9 K/mm3 (4.4-11.0)
[2023-06-25 11:59] LABS: Bedside Glucose 204 mg/dL (74-106)
[2023-06-25 12:00] LABS: Anion Gap 7 (5-15); BUN 23 mg/dL (7-18); BUN/Creat Ratio 15.2 RATIO (10-20); Calcium,Total 8.9 mg/dL (8.5-10.1); Chloride 113 mmol/L (98-107); Creatinine, Serum 1.51 mg/dL (0.55-1.02); EST Glomerular Filtration Rate 36 mL/min (>60); Est Glom Filt Rate - Afr Amer 43 mL/min (>60); Estimated Creatinine Clearance 26.28 ml/min; Glucose 211 mg/dL (74-106); Potassium 3.9 mmol/L (3.5-5.1); Sodium Level 144 mmol/L (136-145)
--- NOTE | 2023-06-25 14:06 | CON.PCM.ID_ITS ---
Assessment & Plan Assessment/Plan (1) Bacteremia due to coagulase-negative Staphylococcus: PLAN: MRSE bacteremia, on vanc. Final susceptibilities pending. There would be an interaction between sinemet and linezolid. ecoli uti - will narrow to keflex for 5 days total of abx. Will follow, thank you (2) Urinary tract infection: HPI Consult Data Date of Consult: 06/25/23 HPI Narrative Reason for Consultation: bacteremia HPI Narrative: LOYDA GARCIA, is a 78 F with h/o Parkinson's, CKD, CAD, presented 06/22 with fall at home. Denies feeling poorly recently, but on admit reported urine had been different. No fever, no abd pain, no n/v/d. Admitted here, now on vanc/cefepime, feeling better. Full ROS performed and neg except as noted above. [facility] Medical History Anxiety and depression Back pain Benign essential hypertension CAD (coronary artery disease) Chronic anemia CKD (chronic kidney disease), stage III Diabetes Former tobacco use GERD (gastroesophageal reflux disease) History of heart attack History of TIA (transient ischemic attack) HLD (hyperlipidemia) Hypothyroidism Parkinson's disease Type II diabetes mellitus Urinary incontinence Walker as ambulation aid Wears dentures Home Medications levothyroxine 50 mcg tablet 50 mcg PO DAILY 08/20/19 [History Last Taken 01/17/23] lorazepam 0.5 mg tablet 0.5 mg PO QHS 08/20/19 [History Last Taken 01/16/23] metformin 1,000 mg tablet 500 mg PO BID 08/20/19 [History Last Taken 01/17/23] metoprolol tartrate 25 mg tablet 25 mg PO BID 08/20/19 [History Last Taken 01/17/23] simvastatin 20 mg tablet 20 mg PO QHS 08/20/19 [History Last Taken 01/16/23] aspirin 81 mg tablet 81 mg PO DAILY 05/24/22 [History Last Taken 01/17/23] carbidopa 25 mg-levodopa 100 mg tablet 1.5 tab PO TID 05/24/22 [History Last Taken 01/17/23] glipizide 2.5 mg tablet, extended release 24 hr 2.5 mg PO DAILY 05/24/22 [History Last Taken 01/17/23] memantine 10 mg tablet 10 mg PO BID 05/24/22 [History Last Taken 01/17/23] risperidone 0.5 mg tablet 0.5 mg PO BID 05/24/22 [History Last Taken 01/17/23] solifenacin 5 mg tablet 5 mg PO DAILY 05/24/22 [History Last Taken Unknown] Allergy/AdvReac Type Severity Reaction Status Date / Time No Known Allergies Allergy Verified 06/23/23 19:15 Family History Mother Heart disease Hypertension Father No problems noted. Surgical History History of cystoscopy History of ureteroscopy Hx of CABG Social History household members: spouse housing: house Smoking Status: Former smoker alcohol intake: never substance use type: does not use Physical Exam Const alert and no apparent distress General Appearance: cooperative HEENT normocephalic and head/scalp atraumatic Eyes PERRL and EOMs intact bilaterally Neck supple and No nodes Resp normal air movement and clear to auscultation bilaterally Cardio regular rate and regular rhythm GI soft to palpation, non-tender and non-distended Extremity General Extremity: edema Skin no rashes or lesions noted Neuro CN's II-XII intact bilaterally Lab / Micro Data Attestation: I reviewed the patient's lab results. 06/25/23 11:24 06/25/23 11:24 Labs: Laboratory Results - last 24 hr 06/24/23 17:33: POC Glucose 164 H 06/24/23 23:19: POC Glucose 142 H 06/25/23 06:12: POC Glucose 130 H 06/25/23 11:24: WBC 6.9, RBC 3.61 L, Hgb 10.4 L, Hct 32.8 L, MCV 90.9, MCH 28.8, MCHC 31.7 L, RDW Std Deviation 47.4 H, RDW Coeff of Festus 14.2, Plt Count 215, MPV 10.1, Immature Gran % (Auto) 0.700, Neut % (Auto) 72.9 H, Lymph % (Auto) 13.6 L, [place] % (Auto) 9.6, Eos % (Auto) 2.6, Baso % (Auto) 0.6, Absolute Neuts (auto) 5.0, Absolute Lymphs (auto) 0.94, Nucleated RBC % 0, Sodium 144, Potassium 3.9, Chloride 113 H, Carbon Dioxide 24.0, Anion Gap 7, BUN 23 H, Creatinine 1.51 H, Estim Creat Clear Calc 26.28, Est GFR (MDRD) Af Amer 43 L, Est GFR (MDRD) Non-Af 36 L, BUN/Creatinine Ratio 15.2, Glucose 211 H, Calcium 8.9 06/25/23 11:32: POC Glucose 204 H Micro: Microbiology 06/23/23 21:19 Blood Culture (Wb) - Anticubital Left Blood Culture - Preliminary Coag Negative Staph 06/23/23 20:36 Blood Culture (Wb) - Anticubital Left Bacteria Detection (PCR) - Final Staphylococcus epidermidis mecA Resistance Marker 06/23/23 20:36 Blood Culture (Wb) - Anticubital Left Blood Culture - Preliminary Staphylococcus epidermidis 06/23/23 20:02 Urine Catheter - Catheter Urine Culture - Final Presumptive E. coli Rhythm Strip Rhythm Strip: Sinus Rhythm Rate: 88 Ectopy: None Imaging Radiology Impression Echocardiogram 06/25/23 05:55 Interpretation Summary The left ventricular ejection fraction is 60 %. Stage 1 diastolic dysfunction. Mild focal mitral valve calcification of the anterior leaflet. No valvular vegetations noted on this surface echocardiogram. Consider transesophageal echocardiogram for further evaluation if clinically indicated. Ordering Physician: Savage Pierson Referring Physician: LAI TURCIOS Performed By: Bonnie Espino RDCS
[2023-06-25] MEDS: Cephalexin 250 MG Capsule PO ×2 (15:09→21:22)
[2023-06-25 15:10] VITALS: BP 108/65; PULSE 87; RESP 18; TEMP 36.6; O2SAT 98
--- NOTE | 2023-06-25 15:21 | CHAPLAIN ---
Type of Pastoral Visit _x__ Initial Visit ___ Follow-up Visit ___ On-call Visit ___ General Patient Visit ___ Spiritual Assessment ___ Family Conference ___ Bereavement ___ Rapid Response ___ Code Blue ___ Other (describe below) Pastoral Care Referral From _x__ Patient ___ Family ___ Nurse ___ Physician ___ Customer Support Assistant ___ Video Specialist ___ Other (describe below) Sacrament/Intervention _x__ Active listening ___ Anointing ___ Restorationist ___ Bereavement ___ Communion _x__ Debora exploration ___ _x__ Life review _x__ Prayer ___ Reconciliation ___ Sacrament of Sick _x__ Supportive presence ___ Wedding ___ Other (describe below) Pastoral Comments patient is sitting up in chair and alert; pt states that she is feeling better and just wants to go home; pt gives some life review and family explanation; pt is expressive of appreciation for offer of visit and support; pt answers questions; pt welcomes prayer
[2023-06-25] MEDS: Vancomycin HCl 750 MG in 0.9% Normal Saline (250mL Bag) 250 ML 250 MG IV (16:22)
--- NOTE | 2023-06-25 16:30 | CASEMGMT ---
Patient has been accepted by [facility]. RN CM updated .
[2023-06-25 16:47] LABS: Bedside Glucose 138 mg/dL (74-106)
[2023-06-25] MEDS: Atorvastatin Calcium 10 MG Tablet PO (21:22)
[2023-06-25 21:26] VITALS: BP 115/57; PULSE 70
[2023-06-25] MEDS: Metoprolol Tartrate 25 MG Tablet PO (21:26)
[2023-06-25 21:30] VITALS: BP 115/57; PULSE 70; RESP 18; TEMP 35.9; O2SAT 97
[2023-06-25 21:58] LABS: Bedside Glucose 203 mg/dL (74-106)
[2023-06-26 03:30] VITALS: BP 148/65; PULSE 60; RESP 18; TEMP 36.8; O2SAT 96
[2023-06-26 05:48] VITALS: BMI 25.2
[2023-06-26] MEDS: Cephalexin 250 MG Capsule PO ×2 (06:22→15:07)
[2023-06-26] MEDS: Carbidopa/Levodopa 25/100 Tablet PO ×2 (06:22→12:37)
[2023-06-26] MEDS: Levothyroxine 50 MCG Tablet PO (06:22)
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
[2023-06-26 06:41] LABS: Absolute Lymphocyte Count 1.83 X10^3/uL (0.83-4.51); Absolute Neutrophil Count 3.4 X10^3/uL (2.0-7.7); Basophil# 0.03 X10^3/uL; Basophil% 0.5 % (0-1); Eosinophils% 4.8 % (0-5); Hematocrit 31.7 % (37-47); Hemoglobin 10.1 g/dL (12.0-15.0); Lymphocyte # 1.83 X10^3/ul (0.83-4.51); Lymphocyte % 29.1 % (19-41); Mean Corp Hgb Conc 31.9 g/dL (32-36); Mean Corpuscular Hgb 28.9 pg (27.0-32.0); Mean Corpuscular Volume 90.6 fL (81-99); Mean Platelet Vol. 10.5 fl (6.2-12.0); Monocyte% 11.1 % (0-10); NRBC Flagged by Analyzer 0 % (0-5); Neutrophil # 3.41 X10^3/uL (2.7-7.7); Neutrophil % 54.3 % (47-70); Platelet Count 234 K/mm3 (150-450); RBC Distribution Width SD 46.7 fl (35.1-43.9); White Blood Count 6.3 K/mm3 (4.4-11.0)
[2023-06-26 06:50] LABS: Prothrombin Time (Protime)PT. 13.5 SECONDS (11.7-14.9)
[2023-06-26 07:38] VITALS: O2SAT 95
[2023-06-26 08:00] LABS: Anion Gap 7 (5-15); BUN 25 mg/dL (7-18); BUN/Creat Ratio 20.2 RATIO (10-20); Calcium,Total 8.9 mg/dL (8.5-10.1); Chloride 116 mmol/L (98-107); Creatinine, Serum 1.24 mg/dL (0.55-1.02); EST Glomerular Filtration Rate 45 mL/min (>60); Est Glom Filt Rate - Afr Amer 54 mL/min (>60); Glucose 137 mg/dL (74-106); Potassium 3.8 mmol/L (3.5-5.1); Sodium Level 143 mmol/L (136-145)
[2023-06-26 08:35] VITALS: BP 101/67; PULSE 82; RESP 16; TEMP 36.4; O2SAT 96
[2023-06-26] MEDS: Insulin Lispro 100 UNIT/ML INSULN.PEN SC ×2 (08:39→12:37)
[2023-06-26 08:41] VITALS: BP 101/67; PULSE 82
[2023-06-26] MEDS: Memantine Hydrochloride 10 MG Tablet PO (08:42)
[2023-06-26] MEDS: Aspirin 81 MG TAB.CHEW PO (08:42)
[2023-06-26] MEDS: Tolterodine Tartrate 2 MG CAP.SA PO (08:42)
[2023-06-26] MEDS: Menthol/Lanolin/Calamine/Znox 113 GM Tube 1 APPLIC TOPICAL (08:42)
[2023-06-26] MEDS: RisperiDONE 0.5 MG Tablet PO (08:42)
[2023-06-26] MEDS: Heparin Injection (Vial) 5,000 UNIT/ML VIAL 5000 UNIT SC (08:42)
[2023-06-26 08:45] LABS: Pathologist Review Reviewed
[2023-06-26] MEDS: Senna/Docusate Sodium 1 Tablet 2 TABLET PO (08:50)
[2023-06-26 08:52] LABS: Pathologist Review Reviewed
[2023-06-26 09:01] LABS: Bedside Glucose 166 mg/dL (74-106)
--- NOTE | 2023-06-26 10:50 | CASEMGMT ---
Social Work As per admitting adjunct nursing faculty, pt does not have LW/POA, declined further information. BO Jorge
[2023-06-26 13:00] LABS: Bedside Glucose 201 mg/dL (74-106)
--- NOTE | 2023-06-26 13:16 | PCM.PN.ID ---
Physical Exam Narrative Feeling well, no fever, no abd pain, no n/v/d. Const alert and no apparent distress General Appearance: cooperative Resp normal air movement and clear to auscultation bilaterally Cardio regular rate and regular rhythm GI soft to palpation, non-tender and non-distended Extremity General Extremity: Negative for edema Skin no rashes or lesions noted ID ID: Route of nutrition/ use of supplements: [] Nutritional Intake: [] IV Site: [] No Catheter: [] Assessment & Plan Assessment/Plan (1) Bacteremia due to coagulase-negative Staphylococcus: PLAN: MRSE bacteremia, on vanc. Final susceptibilities completed. There would be an interaction between sinemet and linezolid. Ok for home with 5 days po doxy 100mg bid. Echo showed no veg. ecoli uti - cont keflex for 3 more days Will follow, ok for discharge (2) Urinary tract infection:
[2023-06-26 14:30] VITALS: BP 115/66; PULSE 66; RESP 16; TEMP 36.4; O2SAT 97
--- NOTE | 2023-06-26 16:20 | DCINST_ITS ---
Discharge Instructions Follow Up Care Test Results: Test results from this visit will be discussed in further detail at your follow- up appointment, if applicable. Discharge Plan Admission Admit Date/Time: 06/23/23 22:16 Attending Provider: Savage Pierson Primary Care Provider: Dannielle John Consulting Providers: Shandra Vazquez; Roc Tang Discharge Orders/Prescriptions Prescriptions: New cephalexin 250 mg Capsule 250 mg PO Q8 3 Days Qty: 9 0RF doxycycline hyclate 100 mg capsule 100 mg PO BID Qty: 10 0RF sennosides-docusate sodium [Stool Softener-Stimulant Laxat] 8.6-50 mg Tablet 2 tab PO BID PRN PRN (Reason: Constipation) Qty: 0 0RF Rx Instructions: Available [id number] Continued lorazepam 0.5 MG tablet 0.5 mg PO QHS Rx Instructions: take 1-2 tablets by mouth daily at bedtime levothyroxine 50 MCG tablet 50 mcg PO DAILY simvastatin 20 MG tablet 20 mg PO QHS metoprolol tartrate 25 MG tablet 25 mg PO BID glipizide 2.5 mg tablet extended release 24hr 2.5 mg PO DAILY Patient Comments: Take 1 tablet by mouth daily with breakfast. Rx Instructions: with breakfast aspirin 81 mg Tablet 81 mg PO DAILY Rx Instructions: INSTRUCTED TO STOP 5 DAYS PRIOR TO OR carbidopa-levodopa 25-100 mg tablet 1.5 tab PO TID Patient Comments: Take 1 and 1/2 tablets by mouth every morning AND 1 and 1/2 tablets every afternoon AND 1 and 1/2 tablets every evening. (8AM, Noon, 4PM).. memantine 10 mg tablet 10 mg PO BID Patient Comments: Take 1 tablet by mouth twice daily. solifenacin 5 mg tablet 5 mg PO DAILY Patient Comments: Take 1 tablet by mouth once daily. risperidone 0.5 mg tablet 0.5 mg PO BID Patient Comments: Take 1 tablet by mouth twice daily. Held metformin 1,000 MG tablet 500 mg PO BID Hold Instructions: Hold for 5 days till creatinine clearance more than 30 mill per Referrals / Follow Up: Dannielle John MD [Primary Care Provider] - Disposition Disposition (needs filled in before D/C Order can be placed): Home Health Service
--- NOTE | 2023-06-26 16:24 | PCM.DC.SUM ---
Providers Date of Admission: 06/23/23 Date of Discharge: 06/26/23 Primary Care Physician: Dr. Dannielle John MD Consultations 06/24/23 15:35 Consult: Infectious Disease Routine Consulting Provider: Roc Tang Reason for Consult: GPC, staph bactermia, E coli in urine, UTI EMERGENT Consult: No MD Notified: Yes Date Notified: 06/24/23 Time Notified: 15:35 Method of Notification: Text Reason For Visit: COMPLICATED UTI, ENCEPHALOPATHY, LACTIC ACIDOSIS Diagnosis Discharge Diagnosis (1) Bacteremia due to coagulase-negative Staphylococcus: Status: Acute Code(s): R78.81 - Bacteremia; B95.7 - Other staphylococcus as the cause of diseases classified elsewhere (2) Urinary tract infection: Status: Acute Code(s): N39.0 - Urinary tract infection, site not specified Plan The patient is a 78 y/o F was admitted with history of worsening of generalized weakness, fatigue fell on the floor while walking to the bathroom. Denies major injury or hitting head. No recent vomiting or diarrhea. No fever. History of Parkinson's disease and dementia. #1. Acute encephalopathy secondary to acute complicated UTI with lactic acidosis: On review of chart, hypotension not noted but blood pressure was low 108/61, 101/55. On IV cefepime. Monitor intake and output. Blood cultures x 2 sent in ED. PT and OT ordered. 06/23: Patient cannot tell her date of and year disoriented to time and place but could not recall how long she did not had bowel movement therefore I think she has mild dementia. Acute encephalopathy resolved 06/24: Chronic dementia and does not remember time and place. I think she is on baseline. Blood culture shows MRSA bacteremia on vancomycin that was started yesterday. E. coli UTI, IV antibiotic narrowed down to Keflex for 5 days of total antibiotic. 06/25: Patient was followed by ID. MRSA bacteremia on vancomycin. Due to significant interaction between Sinemet and linezolid patient discharged on doxycycline 100 mg twice daily for 5 days. Echo showed no vegetation. Keflex for 3 more days. Antibiotics sent by ID to the patient's pharmacy. 06/25: Sepsis ruled out. #2. Parkinson's disease with underlying associated dementia: Complicates presentation, will continue patient home Sinemet, memantine home regimen, maintain on fall precaution, PT/OT/case management consulted for discharge planning. 06/25: Patient is discharged home with home health care. #3. CAD: Status post CABG remotely, continue aspirin, statin, metoprolol, not on KLAUDIA/ARB. #4. Anxiety and depression: continue patient home low-dose lorazepam, risperidone home regimen. #5. Chronic Kidney Disease Stage 4: Admission BUN/Cr 44/1.75, baseline renal function 1.7-1.8 however last labs noted primarily .Her creatinine clearance has been less than 30 mill per minute since May 202206/23: Kidney function improved from 1.75-1.37. #6. Chronic normocytic anemia: Admission hemoglobin 11.5, MCV 88.3, baseline hemoglobin primarily 9 range however last noted 01/21/2023 hemoglobin 9.5. 06/25 hemoglobin 10.1 g. Acceptable limit for her age. #7. Hypertension: Continue home regimen including metoprolol as BP allows, PRN hydralazine. #8. Hypothyroidism: continue patient home levothyroxine regimen. #9. Hyperlipidemia: continue patient on statin therapy. #10. Diabetes mellitus type II: Hold oral home regimen, ADA diet, accu checks w/ ISS. #11. History of TIA: Will continue patient aspirin, statin, metoprolol home regimen, temporally holding oral diabetic regimen with insulin sliding scale as noted. #12. Former tobacco use: Encourage continued tobacco cessation. #13. GERD: as needed Mylanta regimen. #14. DVT prophylaxis: Heparin. #15. CODE status: Patient HCPOA and living will are technically not in place but her with whom she lives is her decision-maker and discussed her current presentation with him at length. Discussed CODE status at length including difference between FULL code, DNR-CCA and DNR-CC status. Following discussions about the differences in these status, requested Full Code status. Medications at Discharge Home Medications levothyroxine 50 mcg tablet 50 mcg PO DAILY 08/20/19 lorazepam 0.5 mg tablet 0.5 mg PO QHS mood 08/20/19 metformin 1,000 mg tablet 500 mg PO BID 08/20/19 metoprolol tartrate 25 mg tablet 25 mg PO BID 08/20/19 simvastatin 20 mg tablet 20 mg PO QHS 08/20/19 aspirin 81 mg tablet 81 mg PO DAILY 05/24/22 carbidopa 25 mg-levodopa 100 mg tablet 1.5 tab PO TID 05/24/22 glipizide 2.5 mg tablet, extended release 24 hr 2.5 mg PO DAILY 05/24/22 memantine 10 mg tablet 10 mg PO BID 05/24/22 risperidone 0.5 mg tablet 0.5 mg PO BID 05/24/22 solifenacin 5 mg tablet 5 mg PO DAILY 05/24/22 cephalexin 250 mg capsule 250 mg PO Q8 3 days #9 caps 06/26/23 doxycycline hyclate 100 mg capsule 100 mg PO BID #10 caps 06/26/23 sennosides 8.6 mg-docusate sodium 50 mg tablet (Stool Softener-Stimulant Laxative) 2 tab PO BID PRN PRN Constipation #0 tabs 06/26/23 Physical Exam Narrative Seen and examined on the day of discharge Patient looks good. More stronger. Does not look confused or disoriented and she told me her age, date of , president name, month and year. She has history of Parkinson disease and advanced dementia. Denies burning pain or irritation near the urinary tract. Physical exam General: Awake oriented x x 3, cooperative. HEENT: Atraumatic, PERRLA, EOMI, Normocephalic Oral: No Gingival or Mucosal Lesions/ Ulcerations Neck: Supple, No JVD, Negative Carotid Bruits Chest wall/Lungs: Air entry diminished in bilateral lung bases. No crepitation/rhonchi Cardiovascular: Regular rate, Regular Rhythm, Normal S1, Normal S2, No M/G/R Abdomen: Bowel Sounds Present, Soft, Non Tender, Non-Distended : No dysuria. No renal angle tenderness. No suprapubic tenderness. Extremities: No edema, Capillary Refill Less than 3 Seconds Skin: No rashes, No breakdown Musculoskeletal: No Tenderness to Palpation of Joints or Extremities Neurological: Cranial nerves II-XII grossly intact, DTR 2+/4. No acute focal neurological deficit. Parkinson disease with pill-rolling tremor increase GGTP Psych/Mental Status: Flat affect. Anterograde and retrograde amnesia Weight / BMI Weight Weight: 136 lb 14.513 oz Body Mass Index (BMI) 25.2 ABG / Lab / Microbiology Data 06/26/23 05:41 06/26/23 05:41 Laboratory: Laboratory Results - last 24 hr 06/23/23 19:50: Diff Path Review Reviewed 06/24/23 06:45: Diff Path Review Reviewed 06/25/23 16:26: POC Glucose 138 H 06/25/23 21:29: POC Glucose 203 H 06/26/23 05:41: WBC 6.3, RBC 3.50 L, Hgb 10.1 L, Hct 31.7 L, MCV 90.6, MCH 28.9, MCHC 31.9 L, RDW Std Deviation 46.7 H, RDW Coeff of Festus 14.0, Plt Count 234, MPV 10.5, Immature Gran % (Auto) 0.200, Neut % (Auto) 54.3, Lymph % (Auto) 29.1, [place] % (Auto) 11.1 H, Eos % (Auto) 4.8, Baso % (Auto) 0.5, Absolute Neuts (auto) 3.4, Absolute Lymphs (auto) 1.83, Nucleated RBC % 0, PT 13.5, INR 1.0, Sodium 143, Potassium 3.8, Chloride 116 H, Carbon Dioxide 20.0 L, Anion Gap 7, BUN 25 H, Creatinine 1.24 H, Estim Creat Clear Calc 32.10, Est GFR (MDRD) Af Amer 54 L, Est GFR (MDRD) Non-Af 45 L, BUN/Creatinine Ratio 20.2 H, Glucose 137 H, Calcium 8.9 06/26/23 08:38: POC Glucose 166 H 06/26/23 12:37: POC Glucose 201 H Microbiology: Microbiology 06/23/23 21:19 Blood Culture (Wb) - Anticubital Left Blood Culture - Final Coag Negative Staph 06/23/23 20:36 Blood Culture (Wb) - Anticubital Left Bacteria Detection (PCR) - Final Staphylococcus epidermidis mecA Resistance Marker 06/23/23 20:36 Blood Culture (Wb) - Anticubital Left Blood Culture - Final Staphylococcus epidermidis 06/23/23 20:02 Urine Catheter - Catheter Urine Culture - Final Presumptive E. coli Meaningful Use Info Meaningful Use Diagnoses (Choose all that apply): None applicable Discharge Plan Admission Admit Date/Time: 06/23/23 22:16 Attending Provider: Savage Pierson Primary Care Provider: Dannielle John Consulting Providers: Shandra Vazquez; Roc Tang Discharge Orders/Prescriptions Prescriptions: New cephalexin 250 mg Capsule 250 mg PO Q8 3 Days Qty: 9 0RF doxycycline hyclate 100 mg capsule 100 mg PO BID Qty: 10 0RF sennosides-docusate sodium [Stool Softener-Stimulant Laxat] 8.6-50 mg Tablet 2 tab PO BID PRN PRN (Reason: Constipation) Qty: 0 0RF Rx Instructions: Available [id number] Continued lorazepam 0.5 MG tablet 0.5 mg PO QHS Rx Instructions: take 1-2 tablets by mouth daily at bedtime levothyroxine 50 MCG tablet 50 mcg PO DAILY simvastatin 20 MG tablet 20 mg PO QHS metoprolol tartrate 25 MG tablet 25 mg PO BID glipizide 2.5 mg tablet extended release 24hr 2.5 mg PO DAILY Patient Comments: Take 1 tablet by mouth daily with breakfast. Rx Instructions: with breakfast aspirin 81 mg Tablet 81 mg PO DAILY Rx Instructions: INSTRUCTED TO STOP 5 DAYS PRIOR TO OR carbidopa-levodopa 25-100 mg tablet 1.5 tab PO TID Patient Comments: Take 1 and 1/2 tablets by mouth every morning AND 1 and 1/2 tablets every afternoon AND 1 and 1/2 tablets every evening. (8AM, Noon, 4PM).. memantine 10 mg tablet 10 mg PO BID Patient Comments: Take 1 tablet by mouth twice daily. solifenacin 5 mg tablet 5 mg PO DAILY Patient Comments: Take 1 tablet by mouth once daily. risperidone 0.5 mg tablet 0.5 mg PO BID Patient Comments: Take 1 tablet by mouth twice daily. Held metformin 1,000 MG tablet 500 mg PO BID Hold Instructions: Hold for 5 days till creatinine clearance more than 30 mill per Referrals / Follow Up: Dannielle John MD [Primary Care Provider] - Disposition Disposition (needs filled in before D/C Order can be placed): Home Health Service Charges/Coding Visit Charges Inpatient E&M: 91117 Disch Hosp >30min
--- NOTE | 2023-06-26 16:27 | CASEMGMT ---
RN CM to pt bedside regarding DC. Pt and pt state they feel safe DC home today. Pt is setup with [facility] and SOC is Thursday. Pt and pt are OK with this. Pt and pt deny further needs at this time.
[2023-06-26 17:56] VITALS: BP 113/74; PULSE 93; RESP 16; TEMP 36.7; O2SAT 98
== END 2023-06-26 18:09 | disposition home health service (06) | DRG 689 ==
LOC: ED 20:33 → PCU 22:39
PROVIDERS: Admitting Provider Family Medicine; Emergency Provider Emergency Medicine; PCP Internal Medicine; Visit Provider Internal Medicine
DX: N39.0 Urinary tract infection, site not specified (principal); G93.41 Metabolic encephalopathy; R78.81 Bacteremia; E87.20 Acidosis, unspecified; N18.4 Chronic kidney disease, stage 4 (severe); E11.22 Type 2 diabetes mellitus with diabetic chronic kidney disease; B95.62 Methicillin resistant Staphylococcus aureus infection as the cause of diseases classified elsewhere; B95.7 Other staphylococcus as the cause of diseases classified elsewhere; F02.80 Dementia in other diseases classified elsewhere, unspecified severity, without behavioral disturbance, psychotic disturbance, mood disturbance, and anxiety; I12.9 Hypertensive chronic kidney disease with stage 1 through stage 4 chronic kidney disease, or unspecified chronic kidney disease; E03.9 Hypothyroidism, unspecified; D64.9 Anemia, unspecified; I25.10 Atherosclerotic heart disease of native coronary artery without angina pectoris; K21.9 Gastro-esophageal reflux disease without esophagitis; F41.8 Other specified anxiety disorders; E78.00 Pure hypercholesterolemia, unspecified; Z87.891 Personal history of nicotine dependence; Z79.82 Long term (current) use of aspirin; B96.20 Unspecified Escherichia coli [E. coli] as the cause of diseases classified elsewhere; Z95.1 Presence of aortocoronary bypass graft; Z86.73 Personal history of transient ischemic attack (TIA), and cerebral infarction without residual deficits; G20.A1 Parkinson's disease without dyskinesia, without mention of fluctuations; Z79.84 Long term (current) use of oral hypoglycemic drugs; Z79.899 Other long term (current) drug therapy
CPT/HCPCS: 36415; 71045; 80048; 80053; 80202; 81001; 82962; 83605; 85025; 85610; 87040; 87086; 87088; 87149; 87186; 93005; 93306; 94668; 97110; 97162; 97166; 97530; 97535; 97802; 99252; 99285; J7030; J7040; J7050; A4216; G0463

== ENCOUNTER 2023-12-15 15:17 | Inpatient (IN) | payer MEDICARE, SELFPAY ==
[2023-12-15] VITALS (12 sets, daily range): BP systolic 84–109; BP diastolic 43–69; PULSE 57–94; RESP 15–20; TEMP 36.6–36.8; O2SAT 95–100; BMI 23.6; BMI 23.8
--- NOTE | 2023-12-15 15:38 | EKG12_ITS ---
Test Reason : WEAKNESS Blood Pressure : / mmHG Vent. Rate : 084 BPM Atrial Rate : 084 BPM P-R Int : 164 ms QRS Dur : 056 ms QT Int : 364 ms P-R-T Axes : 084 -30 -05 degrees QTc Int : 430 ms Normal sinus rhythm Left axis deviation Minimal voltage criteria for LVH, may be normal variant ( R in aVL ) Cannot rule out Anterior infarct , age undetermined Abnormal ECG Baseline artifact Confirmed by Yao Akers ([id number]), editorial writer SUPRIYA ORDONEZ ([id number]) on 12/16/2023 10:07:57 AM Referred By: Confirmed By:Yao Akers
[2023-12-15] MEDS: 0.9% Normal Saline (1000mL) 1,000 ML 999 ML IV ×4 (15:42→23:26)
--- NOTE | 2023-12-15 15:44 | EX.ED.DYSGE1 ---
HPI History of Present Illness Chief Complaint: Weakness Narrative Narrative: Patient is a 78-year-old female with past medical history of CKD stage III, chronic anemia, hypothyroidism, TIA, Parkinson's disease, diabetes, CAD, hyperlipidemia, GERD, hypertension who presented to the emergency department with chief complaint of generalized weakness and diarrhea. Patient states that she started having diarrhea this morning and has had multiple episodes. Patient states that she has not been on any antibiotics recently. Patient states that she has not had a dark tarry stools or blood in her stool. Patient states that she normally ambulates with a walker and noted that she was too weak to do so today prompting her and her significant other to call EMS to have her brought here for further evaluation management. [facility] Medical History Bacteremia due to coagulase-negative Staphylococcus CKD (chronic kidney disease), stage III Chronic anemia Hypothyroidism History of TIA (transient ischemic attack) Anxiety and depression Former tobacco use Urinary incontinence Parkinson's disease Wears dentures Diabetes Walker as ambulation aid Back pain History of heart attack CAD (coronary artery disease) HLD (hyperlipidemia) GERD (gastroesophageal reflux disease) Type II diabetes mellitus Benign essential hypertension Home Medications ?Medication ?Instructions ?Recorded ?Last Taken ?Type levothyroxine 50 mcg tablet 50 mcg PO DAILY 08/20/19 01/17/23 History lorazepam 0.5 mg tablet 0.5 mg PO QHS mood 08/20/19 01/16/23 History metformin 1,000 mg tablet 500 mg PO BID 08/20/19 01/17/23 History metoprolol tartrate 25 mg tablet 25 mg PO BID 08/20/19 01/17/23 History simvastatin 20 mg tablet 20 mg PO QHS 08/20/19 01/16/23 History aspirin 81 mg tablet 81 mg PO DAILY 05/24/22 01/17/23 History carbidopa 25 mg-levodopa 100 mg 1.5 tab PO TID 05/24/22 01/17/23 History tablet glipizide 2.5 mg tablet, extended 2.5 mg PO DAILY 05/24/22 01/17/23 History release 24 hr memantine 10 mg tablet 10 mg PO BID 05/24/22 01/17/23 History risperidone 0.5 mg tablet 0.5 mg PO BID 05/24/22 01/17/23 History solifenacin 5 mg tablet 5 mg PO DAILY 05/24/22 Unknown History cephalexin 250 mg capsule 250 mg PO Q8 3 days #9 caps 06/26/23 Unknown Rx doxycycline hyclate 100 mg capsule 100 mg PO BID #10 caps 06/26/23 Unknown Rx sennosides 8.6 mg-docusate sodium 2 tab PO BID PRN PRN Constipation 06/26/23 Unknown Rx 50 mg tablet (Stool #0 tabs Softener-Stimulant Laxative) Allergy/AdvReac Type Severity Reaction Status Date / Time No Known Allergies Allergy Verified 12/15/23 15:23 Family History Mother Heart disease Hypertension Father No problems noted. Surgical History History of ureteroscopy History of cystoscopy Hx of CABG Social History household members: spouse housing: house Smoking Status: Former smoker alcohol intake: never substance use type: does not use ROS ROS ED ROS Narrative Constitutional: Denies fevers, chills, lightheadedness, dizziness, headaches Eyes: Denies change in vision, double vision, blurry vision Cardiovascular: Denies chest pain, palpitations Respiratory: Denies coughing, wheezing, shortness of breath Abdomen: Complains of diffuse abdominal pain, diarrhea denies nausea vomiting : Denies any pain phonation, hematuria, polyuria Neurological: Denies any numbness, weakness, tingling Musculoskeletal: Denies back pain Skin: Denies rashes or lesions EXAM Physical Exam Narrative Exam Narrative: General: Patient was lying in bed rest comfortably did not appear to be in acute distress Head: Atraumatic, normocephalic Eyes: PERRL bilaterally, EOMI bilateral, no no conjunctival injection noted Neck: Soft, supple, trachea midline Cardiovascular: Regular rate and rhythm no murmurs gallops rubs noted Respiratory: Clear to auscultation bilaterally no rales rhonchi wheeze noted Abdomen: Soft, diffuse tenderness to palpation, no rebound or guarding on exam, bowel sounds present x 4 Extremities: +4/5 strength noted in the bilateral upper and lower extremities, no pedal edema on exam Neurological: Patient was following commands knew that she was at [facility] there is 2023 and we were going into fall Skin: Warm, dry, tact Const Vital Signs: 12/15/23 15:19 12/15/23 15:25 12/15/23 17:18 Temperature 98.2 F Temperature Source Oral Pulse Rate 94 65 Respiratory Rate 20 H 16 Respiratory Effort Normal Non-Labored Respiratory Pattern Normal Blood Pressure 98/69 84/59 L Blood Pressure Mean 78 67 Pulse Ox 95 98 Oxygen Delivery Method Room Air Room Air 12/15/23 18:30 12/15/23 19:00 Temperature 98 F Temperature Source Temporal Pulse Rate 61 66 Respiratory Rate 20 H 18 Respiratory Effort Respiratory Pattern Blood Pressure 102/59 L 95/54 L Blood Pressure Mean 73 68 Pulse Ox 98 98 Oxygen Delivery Method MDM MDM MDM Narrative Medical decision making narrative: Patient is a 78-year-old female who presented to the emergency department chief complaint of generalized weakness, diarrhea. Patient will have a workup performed here on the differential diagnose includes but not limited to electrolyte abnormality, viral gastroenteritis, UTI, ACS, small bowel obstruction. Once workup is obtained reviewed she will be reevaluated. Patient will be given IV fluids for hydration. Patient CBC reviewed with significant leukocytosis of 16,000, hemoglobin stable 13.8, platelet count normal at 436. Patient's sodium is normal 136, potassium was 5.1, creatinine was elevated to 3.36 indicating acute kidney injury her baseline appears to be around 1.5. Patient's glucose was noted be elevated at 302 with an anion gap of 18. Patient lactic acid was elevated to 8.3 with a repeat after IV fluids at 2.5, AST and ALT were 14 and 9 respectively. Patient lipase normal at 41, patient's troponin normal at 10, urinalysis showed no ketones showed 250 mL of blood as well as 500 leukocyte esterase greater than 100 white blood cells seen's but no bacteria noted this was sent for culture. Patient's chest x-ray was reviewed and showed postoperative changes from prior CABG no evidence of acute cardiopulmonary processes. Patient CT abdomen pelvis with IV contrast reviewed and showed no masses bowel obstruction abscess free fluid or free air. Hydronephrosis and hydroureter bilaterally to the level of the UVJ's no obstructing calcifications or definitive masses however chronic UPJ stenosis is a consideration. Cholelithiasis without ductal dilation and moderate coronary vascular calcifications noted. Patient's stool was sent for culture as well as her urine. Patient was given 30 cc/kg bolus of IV fluids as well as placed on a lactated ringer drips at 100 mL an hour. There is no identifiable source of infection however given her white count her lactic acidosis I did order Zosyn and vancomycin. At this point time patient will warrant admission for her lactic acidosis, diarrhea and generalized weakness. Patient's case was discussed with hospitalist Dr. Joy who will admit the patient to the intensive care unit for further evaluation management. Patient was notified with all question concerns answered. Critical care time 35 minutes. Lab Data Labs: Laboratory Results - last 24 hr 12/15/23 12/15/23 12/15/23 15:20 16:05 16:25 WBC 16.4 H RBC 4.81 Hgb 13.8 Hct 44.0 MCV 91.5 MCH 28.7 MCHC 31.4 L RDW Std Deviation 47.1 H RDW Coeff of Festus 13.9 Plt Count 436 MPV 10.6 Immature Gran % (Auto) 1.200 H Neut % (Auto) 68.9 Lymph % (Auto) 20.8 [place] % (Auto) 8.2 Eos % (Auto) 0.5 Baso % (Auto) 0.4 Absolute Neuts (auto) 11.3 H Absolute Lymphs (auto) 3.41 Nucleated RBC % 0 Sodium 136 Potassium 5.1 Chloride 105 Carbon Dioxide 13.0 L Anion Gap 18 H BUN 99 H Creatinine 3.36 H Estim Creat Clear Calc 11.49 Est GFR (MDRD) Af Amer 17 L Est GFR (MDRD) Non-Af 14 L BUN/Creatinine Ratio 29.5 H Glucose 302 H Lactic Acid 8.3 H* Calcium 10.2 H Magnesium 2.6 Total Bilirubin 0.50 AST 14 L ALT 9 L Alkaline Phosphatase 109 Troponin I High Sens 10 Total Protein 8.9 H Albumin 3.5 Globulin 5.4 H Albumin/Globulin Ratio 0.6 L Lipase 41 Urine Color Yellow Urine Clarity Turbid Urine pH 6.0 Ur Specific [place] 1.015 Urine Protein 100 H Urine Glucose (UA) Normal Urine Ketones Negative Urine Occult Blood 250 H Urine Nitrite Negative Urine Bilirubin Negative Urine Urobilinogen Normal Ur Leukocyte Esterase 500 H Urine RBC 0 SEEN Urine WBC >100 SEEN Ur Squamous Epith Cells 0 SEEN Urine Bacteria 0 SEEN Urine Mucus 0 SEEN Radiography Diagnostic Testing: Clinical Impression(s) from Imaging Studies Abdomen/Pelvis CT 12/15/23 18:17 IMPRESSION: 1. No masses bowel obstruction abscess free fluid or free air. The appendix is not positively identified, however no evidence of appendicitis. 2. Hydronephrosis and hydroureter bilaterally to the level of the UVJs. No obstructing calcifications or definitive masses however chronic UVJ stenosis is a consideration. 3. Cholelithiasis without ductal dilatation. 4. Moderate coronary vascular calcifications. Electronically Signed: Jesus Darden MD at 19:24 EDT , Chest X-Ray 12/15/23 18:42 IMPRESSION: 1. Postoperative changes of prior CABG. 2. No evidence of acute cardiopulmonary process. Electronically Signed: Jesus Darden MD at 19:00 EDT , Discharge Plan Dx/Rx/DC Orders Clinical Impression: Generalized weakness, Diarrhea, Hyperglycemia, Acidosis, lactic Disposition Disposition: Acute Care [facility] [place] Discharge Date/Time: 12/15/23 21:42
[2023-12-15 15:52] LABS: Absolute Lymphocyte Count 3.41 X10^3/uL (0.83-4.51); Absolute Neutrophil Count 11.3 X10^3/uL (2.0-7.7); Basophil# 0.07 X10^3/uL; Basophil% 0.4 % (0-1); Eosinophil# 0.08 X10^3/uL; Eosinophils% 0.5 % (0-5); Hemoglobin 13.8 g/dL (12.0-15.0); Lymphocyte # 3.41 X10^3/ul (0.83-4.51); Lymphocyte % 20.8 % (19-41); Mean Corp Hgb Conc 31.4 g/dL (32-36); Mean Corpuscular Hgb 28.7 pg (27.0-32.0); Mean Corpuscular Volume 91.5 fL (81-99); Mean Platelet Vol. 10.6 fl (6.2-12.0); Monocyte# 1.35 X10^3/uL; Monocyte% 8.2 % (0-10); NRBC Flagged by Analyzer 0 % (0-5); Neutrophil # 11.27 X10^3/uL (2.7-7.7); Neutrophil % 68.9 % (47-70); Platelet Count 436 K/mm3 (150-450); RBC Distribution Width CV 13.9 % (11.6-14.6); RBC Distribution Width SD 47.1 fl (35.1-43.9); Red Blood Count 4.81 M/mm3 (4.2-5.4); White Blood Count 16.4 K/mm3 (4.4-11.0)
[2023-12-15 16:14] LABS: ALB/GLOB Ratio 0.6 RATIO (0.9-2.4); AST(SGOT) 14 U/L (15-37); Alanine Aminotransfer ALT/SGPT 9 U/L (13-56); Albumin, Serum 3.5 g/dL (3.2-5.0); Alkaline Phosphatase 109 U/L (45-117); Anion Gap 18 (5-15); BUN 99 mg/dL (7-18); BUN/Creat Ratio 29.5 RATIO (10-20); Calcium,Total 10.2 mg/dL (8.5-10.1); Chloride 105 mmol/L (98-107); Creatinine, Serum 3.36 mg/dL (0.55-1.02); EST Glomerular Filtration Rate 14 mL/min (>60); Est Glom Filt Rate - Afr Amer 17 mL/min (>60); Estimated Creatinine Clearance 11.49 ml/min; Globulin 5.4 g/dL (2.2-4.2); Glucose 302 mg/dL (74-106); Lipase 41 U/L (13-75); Potassium 5.1 mmol/L (3.5-5.1); Protein, Total 8.9 g/dL (6.4-8.2); Sodium Level 136 mmol/L (136-145); Troponin-I HS 10 pg/mL (3.0-54.0)
[2023-12-15 16:24] LABS: Lactic Acid 8.3 mmol/L (0.4-1.9)
[2023-12-15 16:29] LABS: Bacteria 0 SEEN /hpf (None Seen); Mucous, Urine 0 SEEN /hpf (<or=2+); Red Blood Cells-Urine 0 SEEN /hpf (0-5); Squamous Epithelial Cells - UA 0 SEEN /hpf (5-10)
--- NOTE | 2023-12-15 16:31 | ED.RN ---
DURING A BRIEF CHANGE THIS NURSE NOTICED A LARGE REDDENED AREA OF CONCERN ON PTS LEFT BUTTOCK. THIS NURSE CLEAN AND DRIED AREA WELL.
[2023-12-15 16:40] LABS: Color, Urine Yellow (Yellow); Glucose, Dipstick Normal (Normal); Ketone-Dipstick Negative (Negative); Leukocyte Esterase-Dipstick 500 /ul (Negative); Nitrite-Dipstick Negative (Negative); Occult Blood-Urine 250 /ul (Negative); Protein-Dipstick 100 mg/dl (Negative); Specific Gravity, Urine 1.015 (1.002-1.030); Urine Bilirubin Dipstick Negative (Negative); Urine Clarity Turbid (Clear); Urine Urobilinogen Normal (Normal)
[2023-12-15 17:14] LABS: White Blood Cells >100 SEEN /hpf (0-5)
--- NOTE | 2023-12-15 18:17 | CT_ITS ---
INDICATION: elevated lactic, diarrhea EXAMINATION: CT ABDOMEN AND PELVIS WITHOUT CONTRAST - CT Abdomen And Pelvis W/O Contrast Injection TECHNIQUE: Helically acquired images were obtained of the abdomen and pelvis without oral or IV contrast. A radiation dose optimization technique was used for this scan. IV Contrast dosage and agent: None. Oral contrast: None. RADIATION DOSAGE (If Supplied By Facility): CTDIvol = ( 8.37 ) mGy, DLP = ( 399.36 ) mGycm COMPARISON: No pertinent previous examinations for comparison.. . FINDINGS: LOWER CHEST: 1. Minimal atelectasis at the RIGHT lung base. No infiltrate or consolidation. 2. No cardiomegaly or pericardial effusion. 3. There are moderate coronary vascular calcifications. LIVER: The liver has normal configuration and density given the limitation of noncontrast exam.. No focal mass. GALLBLADDER AND BILIARY TREE: There is a cholelithiasis without ductal dilatation or pericholecystic fluid. No gallbladder distension or wall edema. No intra- or extrahepatic biliary ductal dilation. PANCREAS: No focal cystic or solid mass. SPLEEN: Normal size without focal cystic or solid mass. ADRENAL GLANDS: No nodules. KIDNEYS AND URETERS: Kidneys have normal configuration however there is hydronephrosis and hydroureter on the RIGHT to the level of the RIGHT UVJ however no obstructing calcifications noted. There is hydronephrosis and hydroureter on the LEFT to the level of the LEFT UVJ. No obstructing calcifications noted. Appearance of the PERITONEUM: No ascites or free air. No other fluid collection. BOWEL: No evidence of acute appendicitis, although the appendix is not positively identified.. No stomach or bowel distension. No focal inflammatory change. LYMPH NODES: No enlarged mesenteric or retroperitoneal lymph nodes. VESSELS: Diffuse aortic calcifications without aneurysmal dilatation URINARY BLADDER: Unremarkable. REPRODUCTIVE ORGANS: Normal appearance of the uterus, periuterine vascular calcifications are present. ABDOMINAL WALL: No discrete abdominal or pelvic wall hernia. BONES: Diffuse lumbar spondylosis, marginal osteophyte formation is present. CT/Abdomen/Pelvis without Cont IMPRESSION: 1. No masses bowel obstruction abscess free fluid or free air. The appendix is not positively identified, however no evidence of appendicitis. 2. Hydronephrosis and hydroureter bilaterally to the level of the UVJs. No obstructing calcifications or definitive masses however chronic UVJ stenosis is a consideration. 3. Cholelithiasis without ductal dilatation. 4. Moderate coronary vascular calcifications. Electronically Signed: Jesus Darden MD at 19:24 EDT ,
--- NOTE | 2023-12-15 18:42 | RAD_ITS ---
INDICATION: elevated lactic EXAMINATION/TECHNIQUE: X-RAY - XR Chest 1 View COMPARISON: 06/23/2023 FINDINGS: LIFE-SUPPORT AND LINES: 1. Median sternotomy wires and vascular clips are present. HEART AND VESSELS: The cardiac silhouette, pulmonary vasculature have normal appearance. No evidence of congestive failure. LUNGS AND PLEURAL SPACES: Lungs are clear. No focal infiltrate, consolidation or effusions. No evidence of pneumothorax. No pulmonary mass is noted. MEDIASTINUM AND HILAR REGIONS: No masses adenopathy noted. No areas of calcification. Visualized upper airway is normal in position. BONY ELEMENTS: No acute bony changes noted. RAD/Chest 1 View (Portable) IMPRESSION: 1. Postoperative changes of prior CABG. 2. No evidence of acute cardiopulmonary process. Electronically Signed: Jesus Darden MD at 19:00 EDT ,
[2023-12-15] MEDS: Piperacil/Tazobactam 3.375 GM in 0.9% Normal Saline (50mL MB+) 50 ML IV (18:52)
[2023-12-15] MEDS: Vancomycin HCl 750 MG in 0.9% Normal Saline (250mL Bag) 250 ML 250 MG IV (19:19)
[2023-12-15] MEDS: Lactated Ringers 1,000 ML 100 ML IV (19:25)
--- NOTE | 2023-12-15 19:33 | HP.PCM.HOS_ITS ---
HPI - General General Date of Admission: 12/15/23 Date of Service: 12/15/23 Chief Complaint: Diarrhea HPI Narrative LOYDA GARCIA, is a 78 F with history of CKD stage III, Parkinson's, GERD, hypertension, hypothyroidism who presented to [facility] ED 12/15/2023 with diarrhea. In the ED she was found to have blood pressure of 98/69 with respiratory rate of 32, heart rate 94 and 95% on room air but had new YAMILEX on CKD, elevated white blood cell count, and lactic acid of 8.2. She was given fluids and started on broad-spectrum antibiotics. Hospitalist contacted for admission. Patient reports that she had diarrhea that started this morning with some generalized abdominal pain, has not had diarrhea in several hours and abdominal pain is improving but additionally is complaining of generalized weakness and earlier today could not even walk she was feeling so weak. Denies nausea or vomiting, no fevers, no chest pain or shortness of breath, denies any other symptoms aside from the somewhat general abdominal pain and diarrhea. [facility] Medical History Bacteremia due to coagulase-negative Staphylococcus CKD (chronic kidney disease), stage III Chronic anemia Hypothyroidism History of TIA (transient ischemic attack) Anxiety and depression Former tobacco use Urinary incontinence Parkinson's disease Wears dentures Diabetes Walker as ambulation aid Back pain History of heart attack CAD (coronary artery disease) HLD (hyperlipidemia) GERD (gastroesophageal reflux disease) Type II diabetes mellitus Benign essential hypertension Home Medications ?Medication ?Instructions ?Recorded ?Last Taken ?Type levothyroxine 50 mcg tablet 50 mcg PO DAILY 08/20/19 01/17/23 History lorazepam 0.5 mg tablet 0.5 mg PO QHS mood 08/20/19 01/16/23 History metformin 1,000 mg tablet 500 mg PO BID 08/20/19 01/17/23 History metoprolol tartrate 25 mg tablet 25 mg PO BID 08/20/19 01/17/23 History simvastatin 20 mg tablet 20 mg PO QHS 08/20/19 01/16/23 History aspirin 81 mg tablet 81 mg PO DAILY 05/24/22 01/17/23 History carbidopa 25 mg-levodopa 100 mg 1.5 tab PO TID 05/24/22 01/17/23 History tablet glipizide 2.5 mg tablet, extended 2.5 mg PO DAILY 05/24/22 01/17/23 History release 24 hr memantine 10 mg tablet 10 mg PO BID 05/24/22 01/17/23 History risperidone 0.5 mg tablet 0.5 mg PO BID 05/24/22 01/17/23 History solifenacin 5 mg tablet 5 mg PO DAILY 05/24/22 Unknown History cephalexin 250 mg capsule 250 mg PO Q8 3 days #9 caps 06/26/23 Unknown Rx doxycycline hyclate 100 mg capsule 100 mg PO BID #10 caps 06/26/23 Unknown Rx sennosides 8.6 mg-docusate sodium 2 tab PO BID PRN PRN Constipation 06/26/23 Unknown Rx 50 mg tablet (Stool #0 tabs Softener-Stimulant Laxative) Allergy/AdvReac Type Severity Reaction Status Date / Time No Known Allergies Allergy Verified 12/15/23 15:23 Family History Mother Heart disease Hypertension Father No problems noted. Surgical History History of ureteroscopy History of cystoscopy Hx of CABG Social History household members: spouse housing: house Smoking Status: Former smoker alcohol intake: never substance use type: does not use ROS ROS Narrative General: Denies fever/chills HENT: Denies headache, denies stuffy nose, denies sore throat EYES: Denies changes in vision Resp: Denies cough, denies shortness of breath Cardiac: Denies chest pain GI: Had some general abdominal pain and diarrhea that started this morning, has not had diarrhea in several hours, abdominal pain has improved some, denies nausea/vomiting : Denies changes in urination Extremity: Denies swelling MSK: Denies weakness Neuro: Denies any numbness/tingling Heme: Denies any bleeding or bruising Skin: Denies rashes Psychiatric: No complaints voiced Vital Signs Vital Signs Vital Signs: 12/15/23 15:19 12/15/23 15:25 12/15/23 17:18 Temperature 98.2 F Temperature Source Oral Pulse Rate 94 65 Respiratory Rate 32 H 16 Respiratory Effort Normal Non-Labored Respiratory Pattern Normal Blood Pressure 98/69 84/59 L Blood Pressure Mean 78 67 Pulse Ox 95 98 Oxygen Delivery Method Room Air Room Air 12/15/23 19:00 Temperature Temperature Source Pulse Rate 66 Respiratory Rate 18 Respiratory Effort Respiratory Pattern Blood Pressure 95/54 L Blood Pressure Mean 68 Pulse Ox 98 Oxygen Delivery Method Weight Weight: 58.1 kg Body Mass Index (BMI) 23.6 Physical Exam Narrative General: Alert, oriented HEENT: Atraumatic, normocephalic Eyes: Anicteric, normal conjunctiva, extraocular movements grossly intact Neck: Supple Respiratory: Clear to auscultation bilaterally, normal respiratory effort Cardiovascular: Regular rate and rhythm GI: Soft, slightly tender diffusely without rebound, guarding, rigidity Extremities: No edema Musculoskeletal: Moving all extremities Neuro: No overt focal neurological deficits, does appear to have tremor Skin: No rashes appreciated Psych: Cooperative Results Lab / Micro Data 12/15/23 15:20 12/15/23 15:20 Labs: Laboratory Results - last 24 hr 12/15/23 15:20: WBC 16.4 H, RBC 4.81, Hgb 13.8, Hct 44.0, MCV 91.5, MCH 28.7, M CHC 31.4 L, RDW Std Deviation 47.1 H, RDW Coeff of Festus 13.9, Plt Count 436, MPV 10.6, Immature Gran % (Auto) 1.200 H, Neut % (Auto) 68.9, Lymph % (Auto) 20.8, Williams % (Auto) 8.2, Eos % (Auto) 0.5, Baso % (Auto) 0.4, Absolute Neuts (auto) 11.3 H, Absolute Lymphs (auto) 3.41, Nucleated RBC % 0, Sodium 136, Potassium 5.1, Chloride 105, Carbon Dioxide 13.0 L, Anion Gap 18 H, BUN 99 H, Creatinine 3.36 H, Estim Creat Clear Calc 11.49, Est GFR (MDRD) Af Amer 17 L, Est GFR (MDRD) Non-Af 14 L, BUN/Creatinine Ratio 29.5 H, Glucose 302 H, Calcium 10.2 H, Total Bilirubin 0.50, AST 14 L, ALT 9 L, Alkaline Phosphatase 109, Troponin I High Sens 10, Total Protein 8.9 H, Albumin 3.5, Globulin 5.4 H, Albumin/Globulin Ratio 0.6 L, Lipase 41 12/15/23 16:05: Lactic Acid 8.3 H* 12/15/23 16:25: Urine Color Yellow, Urine Clarity Turbid, Urine pH 6.0, Ur Specific [place] 1.015, Urine Protein 100 H, Urine Glucose (UA) Normal, Urine Ketones Negative, Urine Occult Blood 250 H, Urine Nitrite Negative, Urine Bilirubin Negative, Urine Urobilinogen Normal, Ur Leukocyte Esterase 500 H, Urine RBC 0 SEEN, Urine WBC >100 SEEN, Ur Squamous Epith Cells 0 SEEN, Urine Bacteria 0 SEEN, Urine Mucus 0 SEEN Imaging Radiology Impression Abdomen/Pelvis CT 12/15/23 18:17 IMPRESSION: 1. No masses bowel obstruction abscess free fluid or free air. The appendix is not positively identified, however no evidence of appendicitis. 2. Hydronephrosis and hydroureter bilaterally to the level of the UVJs. No obstructing calcifications or definitive masses however chronic UVJ stenosis is a consideration. 3. Cholelithiasis without ductal dilatation. 4. Moderate coronary vascular calcifications. Electronically Signed: Jesus Darden MD at 19:24 EDT , Chest X-Ray 12/15/23 18:42 IMPRESSION: 1. Postoperative changes of prior CABG. 2. No evidence of acute cardiopulmonary process. Electronically Signed: Jesus Darden MD at 19:00 EDT , Assessment & Plan Assessment/Plan (1) Diarrhea: PLAN: Plan # Suspect sepsis?unclear source -Patient endorsing diarrhea and some generalized abdominal pain that is improving but no other focal complaints -Patient with lactic of 8.3 -Initially respiratory rate 32 and blood pressure 84/59, patient received 2 L IV fluids and started on maintenance fluids -Blood pressure did improve however remains soft, does not presently need norepinephrine however given clinical picture feel it is reasonable to monitor patient closely in ICU as she has a high risk of decompensation -Creatinine 3.36 which is an acute worsening from baseline -Additionally white blood cell count is 16.4 with left shift -Will obtain stool studies -Will check COVID/flu/RSV -Chest x-ray no acute process -CT abdomen obtained but had to be without contrast given kidney function, no overt obstruction, abscess, free fluid or free air based on available imaging -Does have some hydronephrosis and hydroureter without distended bladder -Blood and urine cultures, UA with no bacteria but patient does have history of UTIs and urine culture already sent -Sepsis fluids -Broad-spectrum antibiotics # High anion gap metabolic acidosis/elevated lactic acid -Patient with anion gap of 18 and a bicarb of 13 -Lactic acid greater than 8 -Suspect dehydration and underlying infection -Aggressive IV hydration -Broad-spectrum antibiotics #Diarrhea -CT abd without any identifying acute process but limited clinical utility given lack of contrast -IV fluids -Stool studies -Will check COVID/flu/RSV # Leukocytosis -Suspect underlying infection -Panculture -Broad-spectrum antibiotics while awaiting culture results # YAMILEX on CKD stage IIIb -BUN 99 with a creatinine of 3.36, baseline appears closer to 1.5 -IV hydration -Treat underlying infection -Monitor I's and O's -CT demonstrated hydronephrosis and hydroureter without calcifications noted in nondistended bladder -No catheter -If no improvement may need nephrology and/or urology #Hypothyroidism -Continue Synthroid # Parkinson's disease/MCI -Continue home carbidopa-levodopa -Patient's home meds not yet updated, unclear if she is taking memantine or Risperdal, would need to reduce with dose of Risperdal likely given her kidney function and would plan to hold memantine during critical illness #Type 2 diabetes mellitus -Glucose checks and sliding scale insulin -Hold oral hypoglycemics #Hx CAD s/p CABG -Continue aspirin and statin -Hold metoprolol given low blood pressure #DVT ppx: Heparin subcu Samreen Joy MD Sepsis Attestation Date exam was performed: 12/15/23 Time exam was performed: 18:00 Possible Source of Sepsis: GI tract/intra-abdominal and Unknown Sepsis Organ Dysfunction Criteria Present: Creatinine > 2.0 mg/dL, Lactic Acid > 2 mmol/L and Serum CO2 < 20 mmol/L (on BMP) Fluid Resuscitation Fluid resuscitation indicated?: Yes Fluid Resuscitation ordered: 30 ml/kg fluid bolus ordered Sepsis Note Response to fluids: Fluid responsive hypotension (Thus far blood pressure improved) Charges/Coding Visit Charges Inpatient E&M: 61661 Init Hosp L2
--- NOTE | 2023-12-15 19:41 | US_ITS ---
INDICATION: Worsened kidney function EXAMINATION: Ultrasound US Kidney(s) complete (eg, kidneys and bladder) TECHNIQUE: Delcid scale and color doppler images were obtained of the kidneys. COMPARISON: CT examination of the same date, 12/15/2023. Additional comparison to previous ultrasound of 01/18/2023. FINDINGS: RIGHT KIDNEY: 10.1 x 4.6 x 5.0 cm.. There is a moderate to marked hydronephrosis which appears moderately worsened in the interval with worsening pelviectasis. RIGHT renal pelvis measures 2.8 cm. No solid masses or calcifications. No shadowing calculus, focal lesion or perinephric collection is demonstrated. Renal cortex measures approximately 1.1 cm. LEFT KIDNEY: 9.6 x 4.0 x 5.3 cm.. There is a moderate to marked hydronephrosis which appears to be worsened in the interval. There is worsening pelviectasis. LEFT renal pelvis measures 1.8 cm. No shadowing calculus, focal lesion or perinephric collection is demonstrated. URINARY BLADDER: Bladder is estimated at 98.2 mL in volume. Both ureteral jets are identified. Bladder wall estimated at 2 mm. No mass is noted. US/Kidney and Bladder IMPRESSION: 1. Persistent or worsening hydronephrosis bilaterally with increased prominence of pelviectasis bilaterally. 2. No solid or cystic masses identified. 3. Bilateral ureteral jets are identified. Findings may represent sequelae of distal ureteral or UVJ stricture with resultant obstructive uropathy.. Electronically Signed: Jesus Darden MD at 20:27 EDT ,
[2023-12-15 20:03] LABS: Magnesium 2.6 mg/dL (1.6-2.6)
[2023-12-15 20:06] LABS: Reflex Lactate? Y
--- NOTE | 2023-12-15 20:09 | ED.RN ---
PT NOT ABLE TO RECALL MED LIST. PT HAS NO LIST ON PERSON.
--- NOTE | 2023-12-15 21:41 | ED.RN ---
ED MD HAD BEEN NOTIFIED OF NEED FOR FLUID RESUSCITATION. NO ORDERS AT TIME OF ADMISSION.
[2023-12-15 22:01] LABS: Lactic Acid 2.5 mmol/L (0.4-1.9)
--- NOTE | 2023-12-15 22:30 | NURSING ---
This RN and Óscar Russell RN bedside for josue insertion. Upon placing catheter, this RN and previous mentioned RN visualized urine return in catheter tubing. Balloon inflated and cath secured w/ stat lock. 0000- No urine visualized in josue tubing or collection bag. No kinks present. Josue in patient's brief fully inflated and no longer in patient., brief wet. 0055- this RN and Óscar Russell RN back to bedside to place josue. Upon inserting, this RN and other RN visualized light yellow, cloudy urine draining into catheter tubing. After inflating the balloon, josue was attached to stat lock
[2023-12-15] MEDS: Heparin Injection (Vial) 5,000 UNIT/ML VIAL 5000 UNIT SC (22:37)
[2023-12-15] MEDS: Carbidopa/Levodopa 25/100 Tablet PO (22:37)
[2023-12-15] MEDS: Atorvastatin Calcium 10 MG Tablet PO (22:38)
[2023-12-15] MEDS: CHLORHEXIDINE GLUC 2% CLOTH 1 EACH TOWELETTE TOPICAL (22:40)
[2023-12-15 22:46] LABS: Bedside Glucose 107 mg/dL (74-106)
--- NOTE | 2023-12-15 22:53 | PCM.RX.CS ---
Consult Antibiotic Management Pharmacy has been consulted to manage selected antibiotic: Vancomycin Type of Intervention Type of Consult: New start Labs Labs: Sodium 136 mmol/L (136-145) 12/15/23 15:20 Potassium 5.1 mmol/L (3.5-5.1) 12/15/23 15:20 Chloride 105 mmol/L (98-107) 12/15/23 15:20 Carbon Dioxide 13.0 mmol/L (21.0-32.0) L 12/15/23 15:20 Anion Gap 18 (5-15) H 12/15/23 15:20 BUN 99 mg/dL (7-18) H 12/15/23 15:20 Creatinine 3.36 mg/dL (0.55-1.02) H 12/15/23 15:20 Est GFR (MDRD) Af Amer 17 mL/min (>60) L 12/15/23 15:20 Est GFR (MDRD) Non-Af 14 mL/min (>60) L 12/15/23 15:20 BUN/Creatinine Ratio 29.5 RATIO (10-20) H 12/15/23 15:20 Glucose 302 mg/dL (74-106) H 12/15/23 15:20 Dosing Weight Weight used for dosin kg Estimated Creatinine Clearance Estimated Creatinine Clearance: 11.49 Goal Trough Goal Trough: 15-20 mcg/mL Pharmacy Plan for Drug Dosing Pharmacy Plan for Drug Dosing: Pharmacy Service will continue to monitor and adjust dosing as required. 750MG GIVEN IN ER. PATIENT HAS CrCl < 20 AND NOT ON DIALYSIS. DRAW RANDOM LEVEL 12/16 @ 0600 AND ORDER NEXT DOSE BASED ON LAB RESULT Follow-Up Labs Follow-Up Labs: Trough: Vancomycin Date/Time Labs Ordered Labs to be done on [date and time ordered]: 12/16 @ 0600
[2023-12-16] VITALS (58 sets, daily range): BP systolic 86–131; BP diastolic 38–77; PULSE 53–95; RESP 11–25; TEMP 36.4–37.2; O2SAT 96–100; BMI 24.5
--- NOTE | 2023-12-16 02:11 | PCM.HOSP.N ---
Sepsis Attestation Sepsis Alert: Yes Sepsis Attestation: Agree w/Sepsis Date exam was performed: 12/15/23 Time exam was performed: 20:00 Possible Source of Sepsis: Unknown Sepsis Organ Dysfunction Criteria Present: SBP < 90 mmHg or MAP < 65 mmHg Fluid Resuscitation Fluid resuscitation indicated?: Yes Fluid Resuscitation ordered: 30 ml/kg fluid bolus ordered Amount of fluid ordered: 2 Sepsis Note Date exam was performed: 12/16/23 Time exam was performed: 00:00 Sepsis Attestation: Sepsis re-evaluation was performed Response to fluids: Non Fluid responsive hypotension and Vasopressors started
[2023-12-16] MEDS: Norepinephrine 8 MG in 0.9% Normal Saline (250mL Bag) 242 ML 9.4 MG CONT INF (02:25)
[2023-12-16 04:02] LABS: Absolute Lymphocyte Count 1.64 X10^3/uL (0.83-4.51); Absolute Neutrophil Count 9.1 X10^3/uL (2.0-7.7); Basophil# 0.04 X10^3/uL; Basophil% 0.3 % (0-1); Eosinophil# 0.14 X10^3/uL; Eosinophils% 1.2 % (0-5); Hematocrit 30.5 % (37-47); Hemoglobin 9.5 g/dL (12.0-15.0); Lymphocyte # 1.64 X10^3/ul (0.83-4.51); Lymphocyte % 13.5 % (19-41); Mean Corp Hgb Conc 31.1 g/dL (32-36); Mean Corpuscular Hgb 28.7 pg (27.0-32.0); Mean Corpuscular Volume 92.1 fL (81-99); Mean Platelet Vol. 10.1 fl (6.2-12.0); Monocyte# 1.14 X10^3/uL; Monocyte% 9.4 % (0-10); NRBC Flagged by Analyzer 0 % (0-5); Neutrophil # 9.09 X10^3/uL (2.7-7.7); Neutrophil % 74.9 % (47-70); Platelet Count 230 K/mm3 (150-450); RBC Distribution Width CV 14.1 % (11.6-14.6); RBC Distribution Width SD 47.5 fl (35.1-43.9); Red Blood Count 3.31 M/mm3 (4.2-5.4); White Blood Count 12.1 K/mm3 (4.4-11.0)
[2023-12-16 04:17] LABS: International Normalized Ratio 1.1; Prothrombin Time (Protime)PT. 14.1 SECONDS (11.7-14.9)
[2023-12-16 04:26] LABS: Thyroid Stim Hormone (TSH) 0.656 uIU/mL (0.358-3.740)
[2023-12-16] MEDS: Lactated Ringers 1,000 ML 100 ML IV ×3 (04:56→23:51)
[2023-12-16] MEDS: Carbidopa/Levodopa 25/100 Tablet PO ×3 (06:11→20:50)
[2023-12-16] MEDS: Levothyroxine 50 MCG Tablet PO (06:11)
[2023-12-16] MEDS: 0.9% Saline Lock 10 ML Syringe IV (06:11)
[2023-12-16 08:06] LABS: Bedside Glucose 159 mg/dL (74-106)
--- NOTE | 2023-12-16 08:40 | PCM.PN.HOSP ---
Reason for Visit Reason for Visit: Diagnoses Diarrhea, unspecified (12/15/23) Subjective Subjective PICC placed. Has required norepinephrine gtt to support BP despite IVF resuscitation. No further diarrhea since arriving to ICU. Objective Data Objective Data Vital Signs: Vital Signs Temp Pulse Resp BP Pulse Ox O2 Del Method 36.7 C 56 L 17 115/45 L 98 Room Air 12/16/23 04:00 12/16/23 07:00 12/16/23 07:00 12/16/23 07:00 12/16/23 07:00 12/16/23 07:00 Oxygen Delivery Method Room Air Weight: 60.5 kg Body Mass Index (BMI) 24.5 Intake & Output: Intake and Output for Last 24 Hours 12/14/23 12/15/23 12/16/23 23:59 23:59 23:59 Intake Total 3270.83 / 3270.83 Output Total 790 / 790 Balance 3270.83 / 3265.83 1219.29 / 1219.29 Lab / Micro Data 12/16/23 03:55 12/16/23 10:30 Labs: Laboratory Results - last 24 hr 12/15/23 15:20: WBC 16.4 H, RBC 4.81, Hgb 13.8, Hct 44.0, MCV 91.5, MCH 28.7, MCHC 31.4 L, RDW Std Deviation 47.1 H, RDW Coeff of Festus 13.9, Plt Count 436, MPV 10.6, Immature Gran % (Auto) 1.200 H, Neut % (Auto) 68.9, Lymph % (Auto) 20.8, Tyrrell % (Auto) 8.2, Eos % (Auto) 0.5, Baso % (Auto) 0.4, Absolute Neuts (auto) 11.3 H, Absolute Lymphs (auto) 3.41, Nucleated RBC % 0, Sodium 136, Potassium 5.1, Chloride 105, Carbon Dioxide 13.0 L, Anion Gap 18 H, BUN 99 H, Creatinine 3.36 H, Estim Creat Clear Calc 11.49, Est GFR (MDRD) Af Amer 17 L, Est GFR (MDRD) Non-Af 14 L, BUN/Creatinine Ratio 29.5 H, Glucose 302 H, Calcium 10.2 H, Magnesium 2.6, Total Bilirubin 0.50, AST 14 L, ALT 9 L, Alkaline Phosphatase 109, Troponin I High Sens 10, Total Protein 8.9 H, Albumin 3.5, Globulin 5.4 H, Albumin/Globulin Ratio 0.6 L, Lipase 41 12/15/23 16:05: Lactic Acid 8.3 H* 12/15/23 16:25: Urine Color Yellow, Urine Clarity Turbid, Urine pH 6.0, Ur Specific [place] 1.015, Urine Protein 100 H, Urine Glucose (UA) Normal, Urine Ketones Negative, Urine Occult Blood 250 H, Urine Nitrite Negative, Urine Bilirubin Negative, Urine Urobilinogen Normal, Ur Leukocyte Esterase 500 H, Urine RBC 0 SEEN, Urine WBC >100 SEEN, Ur Squamous Epith Cells 0 SEEN, Urine Bacteria 0 SEEN, Urine Mucus 0 SEEN 12/15/23 21:31: Lactic Acid 2.5 H* 12/15/23 22:23: POC Glucose 107 H 12/16/23 03:55: WBC 12.1 H, RBC 3.31 L, Hgb 9.5 L, Hct 30.5 L, MCV 92.1, MCH 28.7, MCHC 31.1 L, RDW Std Deviation 47.5 H, RDW Coeff of Festus 14.1, Plt Count 230, MPV 10.1, Immature Gran % (Auto) 0.700, Neut % (Auto) 74.9 H, Lymph % (Auto) 13.5 L, Tyrrell % (Auto) 9.4, Eos % (Auto) 1.2, Baso % (Auto) 0.3, Absolute Neuts (auto) 9.1 H, Absolute Lymphs (auto) 1.64, Nucleated RBC % 0, PT 14.1, INR 1.1, TSH 0.656 12/16/23 07:39: POC Glucose 159 H Micro: Microbiology 12/15/23 23:20 Mucosa - Nasopharyngeal SARS-CoV-2, Influenza & RSV (PCR) - Final Radiography Diagnostic Testing: Radiology Impression Abdomen/Pelvis CT 12/15/23 18:17 IMPRESSION: 1. No masses bowel obstruction abscess free fluid or free air. The appendix is not positively identified, however no evidence of appendicitis. 2. Hydronephrosis and hydroureter bilaterally to the level of the UVJs. No obstructing calcifications or definitive masses however chronic UVJ stenosis is a consideration. 3. Cholelithiasis without ductal dilatation. 4. Moderate coronary vascular calcifications. Electronically Signed: Jesus Darden MD at 19:24 EDT , Chest X-Ray 12/15/23 18:42 IMPRESSION: 1. Postoperative changes of prior CABG. 2. No evidence of acute cardiopulmonary process. Electronically Signed: Jesus Darden MD at 19:00 EDT , Renal Ultrasound 12/15/23 19:41 IMPRESSION: 1. Persistent or worsening hydronephrosis bilaterally with increased prominence of pelviectasis bilaterally. 2. No solid or cystic masses identified. 3. Bilateral ureteral jets are identified. Findings may represent sequelae of distal ureteral or UVJ stricture with resultant obstructive uropathy.. Electronically Signed: Jesus Darden MD at 20:27 EDT , Physical Exam Const alert and no apparent distress HEENT head/scalp atraumatic and moist oral mucous membranes Resp normal respiratory effort, no retractions, no use of accessory muscles and clear to auscultation bilaterally Cardio regular rate, regular rhythm, S1 normal heart sound and S2 normal heart sound GI normal to inspection, nondistended, normoactive bowel sounds, soft to palpation, non-tender and non-distended Neuro Sensorium / Orientation: awake, alert, oriented to person and oriented to place Assessment & Plan Assessment/Plan (1) Diarrhea: PLAN: Plan YAMILEX Improving. Admitting creatinine 3.36, now down to 1.86. Baseline is around 1.24. Continue with IV fluids. Renal ultrasound shows persistent or worsening hydronephrosis bilaterally with increased prominence of pelviectasis bilaterally. Will hold off on urology evaluation at this time. possible septic shock on norepinephrine gtt. CCM consult unclear source, though may be urinary. Lactic acidosis Admission lactate of 8.3, trended down to 2.5. Likely combination of dehydration as well as concomitant use of metformin. Will continue empirically with antibiotics with pip-tazo and vancomycin for now. C. difficile pending. Depending on the infectious workup, either 1 or both antibiotics could be discontinued. Continue to hold metformin Chronic conditions Hypothyroidism-Continue Synthroid Parkinson's disease/MCI-Continue home [id number]'s home meds not yet updated, unclear if she is taking memantine or Risperdal, would need to reduce with dose of Risperdal likely given her kidney function and would plan to hold memantine during critical illness Type 2 diabetes mellitus-Glucose checks and sliding scale insulin-Hold oral hypoglycemics Hx CAD s/p CABG-Continue aspirin and statin-Hold metoprolol given low blood pressure DVT ppx: Heparin subcu Charges/Coding Visit Charges Inpatient E&M: 20087 Subs Hosp L2
[2023-12-16 09:13] LABS: Hemoglobin A1c 6.4 % (3.8-5.6)
[2023-12-16] MEDS: Aspirin E.C. 81 MG Tablet PO (09:41)
[2023-12-16] MEDS: Heparin Injection (Vial) 5,000 UNIT/ML VIAL 5000 UNIT SC ×2 (09:41→20:49)
--- NOTE | 2023-12-16 09:42 | PCM.OP.PRO ---
Procedure Report Date of Procedure: 12/16/23 Assessment & Plan Assessment/Plan (1) Acidosis, lactic: Procedures Radiology Radiology Access Procedures: PICC Procedure Time Out Time Out Informed consent given: Yes Consent signed: Yes Time out checklist: patient, procedure, site marked/identified, positioning of patient, supplies available and allergies confirmed Time out verified: Yes Time out date: 12/16/23 Time out time: 08:47 PICC Line Consent Screening tool completed:: Yes Consent obtained:: Yes Consent given by (patient or responsible constitution party):: PATIENT Line successful (if no, document why in comments):: Yes Insertion Reason for Insertion: VESICANT Date of Insertion: 12/16/23 Ok to use: Yes Type of PICC inserted: Dual Power PICC PICC Lot #: [id number] PICC Reference #: [id number] Microintroducer Used: Yes (in kit) Ultrasound/Equipment Used: Probe Cover Kit Trimmed Length (cm): 35 Insertion Length (cm): 35 Exposed Length (cm): 0 Tip Placement: Caval Atrial Junction Placement Confirmation: 3CG Insertion Vein: Right Brachial Insertion Attempts: 1 Local Anesthesia Used: Lidocaine 1% (in kit) Dressing Applied: Statlock and Tegaderm CHG Arm Measurement above site (in cm): 28 Patient Tolerated Procedure: Well Threading Difficulties: No Comments Comment: Patient identity was verified with two patient identifiers. Informed consent was obtained and time-out was completed. Hands were sanitized. The patient was positioned supine with right arm at 90 degrees. The patient's upper arm vasculature was assessed using ultrasound. Patency of the right brachial vein was confirmed and the vein was externally marked. An external measurement was obtained of 35 cm. External leads were applied to the patient's right upper chest and laterally and inferior of the umbilicus on the mid axillary line. Cap, mask, and prep gloves were donned. The underdrape was placed under the patient's arm. The site was prepped with chlorhexidine, and tourniquet was loosely applied. Prep gloves were discarded, and hands were sanitized. The sterile kit was opened with additional supplies dropped in. Sterile gown and gloves were donned, and the patient was draped. The sterile kit was assembled with needle, introducer, needless connectors, and each catheter lumen flushed with sterile normal saline. The marked site of insertion was anesthetized with 1% lidocaine from the kit. Patient tolerated well. The right brachial vein was then accessed using ultrasound guidance and guidewire was inserted to safety [place]. The tourniquet was released. The access needle was removed while securing the guidewire in place. The site was again anesthetized with 1% lidocaine, prior to insertion of introducer sheath and dilator. Patient tolerated the insertion well. The catheter was trimmed to a length of 35 cm. Using 3CG guidance, the catheter was then inserted through the introducer sheath, slowly. There was no resistance on insertion. The catheter followed the expected course of the vessel using 3CG tracking. Maximal p-wave, without deflection, confirming placement in the cavoatrial junction, was obtained at an insertion length of 35 cm, leaving 0 cm external. The introducer sheath was retracted and peeled away, incrementally, while keeping the catheter secured. The stylet was removed. A flushed needleless connector was attached to each catheter lumen. Aspiration of the lumen was performed to remove any air and confirm blood return. Blood return was verified and each lumen was flushed with 10 ml of sterile normal saline in a pulsatile fashion. The each lumen was clamped with the last pulsed flush. Total sterile flushes used for the insertion was (7) 10 ml syringes, (2) from the kit. Finally, the insertion site was cleaned with chlorhexidine, and the catheter was secured using a StatLock. The site was covered with a Tegaderm CHG Dressing and disinfecting caps were applied. Baseline arm circumference was obtained at the insertion site and measured 28 cm. The patient was provided with a patient education handout on PICC line care of infection prevention, heavy lifting restriction, maintaining mobility, and watching for any signs of infection. The primary nurse is aware that the PICC line is ready for use.
[2023-12-16] MEDS: Piperacil/Tazobactam 3.375 GM in 0.9% Normal Saline (50mL MB+) 50 ML IV ×2 (09:51→20:50)
[2023-12-16] MEDS: Insulin Lispro 100 UNIT/ML INSULN.PEN SC ×4 (10:00→20:49)
--- NOTE | 2023-12-16 10:00 | CASEMGMT ---
ARIANA HUERTA Face to Face with patient for initial transition planning/care coordination assessment. RN CM introduced self and role at [facility]. Patient lying in bed, alert and oriented. Patient willing to participate in assessment and is able to answer all questions appropriately. Care providers, pharmacy, and demographics verified. Strata: 3 PCP: Deuce Specialists: none Preferred Pharmacy: [facility] Insurance: [employer] [facility] Prescription Benefit: yes Living Will/HPOA: none LNOK: , sister Living Arrangements: Patient lives with in a first floor apartment, no steps. Patient states she dresses and toilets self, has private aide for bathing 2x per week. Patient states she crawls to get into her wheelchair. Transportation: DME/HHC: Patient has shower, lift chair, grab bars, and wheelchair at home. No previous HHC or SNF. Patient wishes to discharge home, will monitor progress with therapy for safe disposition. Patient is not opposed to going to SNF if recommended. Patient states she has no further needs or concerns at this time. CM to follow for discharge planning needs that may arise. Disposition Plan: TBD, anticipate HHC with [facility] vs SNF pending progress with therapy. Yuliet MURRAY, RN, CM
[2023-12-16 11:05] LABS: Anion Gap 7 (5-15); BUN 56 mg/dL (7-18); BUN/Creat Ratio 30.1 RATIO (10-20); Calcium,Total 8.3 mg/dL (8.5-10.1); Chloride 119 mmol/L (98-107); Creatinine, Serum 1.86 mg/dL (0.55-1.02); EST Glomerular Filtration Rate 28 mL/min (>60); Est Glom Filt Rate - Afr Amer 34 mL/min (>60); Glucose 247 mg/dL (74-106); Potassium 3.9 mmol/L (3.5-5.1); Sodium Level 144 mmol/L (136-145)
[2023-12-16 11:22] LABS: Bedside Glucose 203 mg/dL (74-106)
--- NOTE | 2023-12-16 11:30 | EX.PCM.CONCC ---
Assessment & Plan Assessment/Plan (1) Septic shock: PLAN: Plan RECOMMENDATIONS: 1. Continue supplemental IV fluid hydration. 2. Continue Levophed to maintain mean arterial pressure at or above 65 mmHg. 3. Empiric antimicrobials, pending infectious workup. 4. Continue appropriate DVT prophylaxis. 5. Encourage incentive spirometer use and mobilize patient as tolerated. IMPRESSIONS: 1. Multifactorial shock Clinical concern for underlying septic and hypovolemic etiologies. The patient presented to the hospital with sepsis due to possible urinary tract source of infection with acute sepsis related organ dysfunction as evidenced by acute kidney injury, lactic acidemia and fluid refractory hypotension, requiring vasopressor support. The patient has been initiated on appropriate antimicrobials. Levophed will be continued to maintain a mean arterial pressure at or above 65 mmHg. Renal ultrasound demonstrated persistent or worsening hydronephrosis bilaterally. However, there is no urologist available for consultation. No catheter has been placed. 2. Acute on chronic kidney disease Most likely prerenal in etiology in the setting of #1. Anticipate improvement in renal function with stabilization and hemodynamic status. Continue to monitor urine output. No current indication for renal replacement therapy. 3. Generalized weakness/hypothyroidism/history of recurrent UTI/anemia/diabetes mellitus/coronary artery disease/dementia/Parkinson's Complicates care, management, recovery and prognosis. Continue supportive measures as noted above. Recommend physical therapy evaluation once medically stabilized. CODE STATUS: Full code TIME: 33 minutes of critical care time, independent of procedures, was spent addressing the patient's multifactorial shock, acute on chronic kidney disease, review of all data and collaboration with the care team. HPI Consult Data Date of Consult: 12/16/23 HPI Narrative Reason for Consultation: Septic shock HPI Narrative: The patient is a 78-year-old female, with a history as outlined below, who presented to the emergency department via EMS on December 14 with generalized weakness, abdominal pain and diarrhea. The patient has a known history of chronic kidney disease, Parkinson's, hypothyroidism, overactive bladder, dementia, coronary artery disease, chronic anemia and history of recurrent UTIs. On presentation to the emergency department, the patient was documented to be afebrile with borderline low hemodynamics. Initial laboratory evaluation revealed a white blood cell count of 16,000. Coagulation profile was within normal limits. Chemistry profile was notable for a bicarbonate of 13, anion gap of 18, BUN of 99 and creatinine of 3.36. Lactate was elevated at 8.3. Urine analysis was notable for leukocyte esterase without urine bacteria noted. Blood and urine cultures were collected. COVID, influenza and RSV PCR's were negative. CT abdomen/pelvis demonstrated hydronephrosis with hydroureter bilaterally. Chest x-ray demonstrated no acute cardiopulmonary process. The patient received supplemental IV fluid hydration and was initiated on antimicrobials. She was subsequently admitted to the medical intensive care unit for further management. Ultimately, the patient developed fluid refractory hypotension, which necessitated the initiation of vasopressor support. PICC line was placed this morning. According to nursing staff, the patient has not had any episodes of diarrhea since being admitted to the hospital. [facility] Medical History Bacteremia due to coagulase-negative Staphylococcus CKD (chronic kidney disease), stage III Chronic anemia Hypothyroidism History of TIA (transient ischemic attack) Anxiety and depression Former tobacco use Urinary incontinence Parkinson's disease Wears dentures Diabetes Walker as ambulation aid Back pain History of heart attack CAD (coronary artery disease) HLD (hyperlipidemia) GERD (gastroesophageal reflux disease) Type II diabetes mellitus Benign essential hypertension Home Medications ?Medication ?Instructions ?Recorded ?Last Taken ?Type levothyroxine 50 mcg tablet 50 mcg PO DAILY 08/20/19 01/17/23 History lorazepam 0.5 mg tablet 0.5 mg PO QHS mood 08/20/19 01/16/23 History metformin 1,000 mg tablet 500 mg PO BID 08/20/19 01/17/23 History metoprolol tartrate 25 mg tablet 25 mg PO BID 08/20/19 01/17/23 History simvastatin 20 mg tablet 20 mg PO QHS 08/20/19 01/16/23 History aspirin 81 mg tablet 81 mg PO DAILY 05/24/22 01/17/23 History carbidopa 25 mg-levodopa 100 mg 1.5 tab PO TID 05/24/22 01/17/23 History tablet glipizide 2.5 mg tablet, extended 2.5 mg PO DAILY 05/24/22 01/17/23 History release 24 hr memantine 10 mg tablet 10 mg PO BID 05/24/22 01/17/23 History risperidone 0.5 mg tablet 0.5 mg PO BID 05/24/22 01/17/23 History solifenacin 5 mg tablet 5 mg PO DAILY 05/24/22 Unknown History cephalexin 250 mg capsule 250 mg PO Q8 3 days #9 caps 06/26/23 Unknown Rx doxycycline hyclate 100 mg capsule 100 mg PO BID #10 caps 06/26/23 Unknown Rx sennosides 8.6 mg-docusate sodium 2 tab PO BID PRN PRN Constipation 06/26/23 Unknown Rx 50 mg tablet (Stool #0 tabs Softener-Stimulant Laxative) Allergy/AdvReac Type Severity Reaction Status Date / Time No Known Allergies Allergy Verified 12/15/23 15:23 Family History Mother Heart disease Hypertension Father No problems noted. Surgical History History of ureteroscopy History of cystoscopy Hx of CABG Social History household members: spouse housing: house Smoking Status: Former smoker alcohol intake: never substance use type: does not use ROS ROS Narrative 10 systems were reviewed with pertinent positives as noted in the HPI above. Physical Exam Const alert and no apparent distress General Appearance: lethargic and ill appearing HEENT normocephalic and head/scalp atraumatic Eyes PERRL, EOMs intact bilaterally and conjunctivae normal Neck supple General: trachea midline Chest inspection of chest normal Resp normal respiratory effort Auscultation: diminished lung sounds; Negative for rales, rhonchi or wheezes Cardio S1 normal heart sound and S2 normal heart sound Rate: bradycardia GI normal to inspection, nondistended, normoactive bowel sounds Extremity General Extremity: Negative for clubbing Skin no rashes or lesions noted Neuro CN's II-XII intact bilaterally and no focal motor deficits Psych Mood & Affect: flat affect Lab / Micro Data 12/16/23 03:55 12/16/23 10:30 Labs: Laboratory Results - last 24 hr 12/15/23 15:20: WBC 16.4 H, RBC 4.81, Hgb 13.8, Hct 44.0, MCV 91.5, MCH 28.7, MCHC 31.4 L, RDW Std Deviation 47.1 H, RDW Coeff of Festus 13.9, Plt Count 436, MPV 10.6, Immature Gran % (Auto) 1.200 H, Neut % (Auto) 68.9, Lymph % (Auto) 20.8, [place] % (Auto) 8.2, Eos % (Auto) 0.5, Baso % (Auto) 0.4, Absolute Neuts (auto) 11.3 H, Absolute Lymphs (auto) 3.41, Nucleated RBC % 0, Sodium 136, Potassium 5.1, Chloride 105, Carbon Dioxide 13.0 L, Anion Gap 18 H, BUN 99 H, Creatinine 3.36 H, Estim Creat Clear Calc 11.49, Est GFR (MDRD) Af Amer 17 L, Est GFR (MDRD) Non-Af 14 L, BUN/Creatinine Ratio 29.5 H, Glucose 302 H, Calcium 10.2 H, Magnesium 2.6, Total Bilirubin 0.50, AST 14 L, ALT 9 L, Alkaline Phosphatase 109, Troponin I High Sens 10, Total Protein 8.9 H, Albumin 3.5, Globulin 5.4 H, Albumin/Globulin Ratio 0.6 L, Lipase 41 12/15/23 16:05: Lactic Acid 8.3 H* 12/15/23 16:25: Urine Color Yellow, Urine Clarity Turbid, Urine pH 6.0, Ur Specific [place] 1.015, Urine Protein 100 H, Urine Glucose (UA) Normal, Urine Ketones Negative, Urine Occult Blood 250 H, Urine Nitrite Negative, Urine Bilirubin Negative, Urine Urobilinogen Normal, Ur Leukocyte Esterase 500 H, Urine RBC 0 SEEN, Urine WBC >100 SEEN, Ur Squamous Epith Cells 0 SEEN, Urine Bacteria 0 SEEN, Urine Mucus 0 SEEN 12/15/23 21:31: Lactic Acid 2.5 H* 12/15/23 22:23: POC Glucose 107 H 12/16/23 03:55: WBC 12.1 H, RBC 3.31 L, Hgb 9.5 L, Hct 30.5 L, MCV 92.1, MCH 28.7, MCHC 31.1 L, RDW Std Deviation 47.5 H, RDW Coeff of [place] 14.1, Plt Count 230, MPV 10.1, Immature Gran % (Auto) 0.700, Neut % (Auto) 74.9 H, Lymph % (Auto) 13.5 L, [place] % (Auto) 9.4, Eos % (Auto) 1.2, Baso % (Auto) 0.3, Absolute Neuts (auto) 9.1 H, Absolute Lymphs (auto) 1.64, Nucleated RBC % 0, PT 14.1, INR 1.1, Hemoglobin A1c 6.4 H, TSH 0.656 12/16/23 07:39: POC Glucose 159 H 12/16/23 10:30: Sodium 144, Potassium 3.9, Chloride 119 H, Carbon Dioxide 18.0 L, Anion Gap 7, BUN 56 H, Creatinine 1.86 H, Estim Creat Clear Calc 21.70, Est GFR (MDRD) Af Amer 34 L, Est GFR (MDRD) Non-Af 28 L, BUN/Creatinine Ratio 30.1 H, Glucose 247 H, Calcium 8.3 L 12/16/23 11:00: POC Glucose 203 H Micro: Microbiology 12/15/23 23:20 Mucosa - Nasopharyngeal SARS-CoV-2, Influenza & RSV (PCR) - Final Imaging Radiology Impression Abdomen/Pelvis CT 12/15/23 18:17 IMPRESSION: 1. No masses bowel obstruction abscess free fluid or free air. The appendix is not positively identified, however no evidence of appendicitis. 2. Hydronephrosis and hydroureter bilaterally to the level of the UVJs. No obstructing calcifications or definitive masses however chronic UVJ stenosis is a consideration. 3. Cholelithiasis without ductal dilatation. 4. Moderate coronary vascular calcifications. Electronically Signed: Jesus Darden MD at 19:24 EDT , Chest X-Ray 12/15/23 18:42 IMPRESSION: 1. Postoperative changes of prior CABG. 2. No evidence of acute cardiopulmonary process. Electronically Signed: Jesus Darden MD at 19:00 EDT , Renal Ultrasound 12/15/23 19:41 IMPRESSION: 1. Persistent or worsening hydronephrosis bilaterally with increased prominence of pelviectasis bilaterally. 2. No solid or cystic masses identified. 3. Bilateral ureteral jets are identified. Findings may represent sequelae of distal ureteral or UVJ stricture with resultant obstructive uropathy.. Electronically Signed: Jesus Darden MD at 20:27 EDT , Charges/Coding Procedures Hospitalists Procedures: [id number] Critical Care 1st Hr
--- NOTE | 2023-12-16 12:57 | PCM.RX.CS ---
Consult Antibiotic Management Pharmacy has been consulted to manage selected antibiotic: Vancomycin Type of Intervention Type of Consult: Follow-up Prior Doses of Antibiotics Prior Doses of Antibiotics Received/Current Regimen: the patient received 750mg IV x1 last night at 19:19 Labs Labs: Sodium 144 mmol/L (136-145) 12/16/23 10:30 Potassium 3.9 mmol/L (3.5-5.1) 12/16/23 10:30 Chloride 119 mmol/L (98-107) H 12/16/23 10:30 Carbon Dioxide 18.0 mmol/L (21.0-32.0) L 12/16/23 10:30 Anion Gap 7 (5-15) 12/16/23 10:30 BUN 56 mg/dL (7-18) H 12/16/23 10:30 Creatinine 1.86 mg/dL (0.55-1.02) H 12/16/23 10:30 Est GFR (MDRD) Af Amer 34 mL/min (>60) L 12/16/23 10:30 Est GFR (MDRD) Non-Af 28 mL/min (>60) L 12/16/23 10:30 BUN/Creatinine Ratio 30.1 RATIO (10-20) H 12/16/23 10:30 Glucose 247 mg/dL (74-106) H 12/16/23 10:30 Microbiology Microbiology: Microbiology 12/15/23 23:20 Mucosa - Nasopharyngeal SARS-CoV-2, Influenza & RSV (PCR) - Final Dosing Weight Weight used for dosin.5 kg Estimated Creatinine Clearance Estimated Creatinine Clearance: 21.7ml/min Goal Trough Goal Trough: 15-20 mcg/mL Pharmacy Plan for Drug Dosing Pharmacy Plan for Drug Dosing: The patient's SCr dropped to 1.86 today from 3.36 yesterday and CrCl improved to 21.7 ml/min so will now schedule a dose of 500mg IV q24h to start tonight 24 hours after the 750mg was given last night. Will cancel the random vanc level originally scheduled for tomorrow morning and will then order a trough level for tomorrow before the dose is due to be given. Pharmacy Service will continue to monitor and adjust dosing as required. Follow-Up Labs Follow-Up Labs: Trough: Vancomycin Date/Time Labs Ordered Labs to be done on [date and time ordered]: 12/17/23 18:30
[2023-12-16 16:53] LABS: Bedside Glucose 276 mg/dL (74-106)
[2023-12-16] MEDS: Vancomycin IV 500 MG/100 ML BAG 100 MG IV (19:03)
[2023-12-16] MEDS: Atorvastatin Calcium 10 MG Tablet PO (20:50)
[2023-12-16 21:06] LABS: Bedside Glucose 183 mg/dL (74-106)
[2023-12-17] VITALS (26 sets, daily range): BP systolic 88–127; BP diastolic 47–78; PULSE 60–84; RESP 16–23; TEMP 36.4–37.2; O2SAT 92–98; BMI 25.2
[2023-12-17] MEDS: Carbidopa/Levodopa 25/100 Tablet PO ×3 (04:48→20:58)
[2023-12-17] MEDS: Levothyroxine 50 MCG Tablet PO (04:48)
[2023-12-17] MEDS: CHLORHEXIDINE GLUC 2% CLOTH 1 EACH TOWELETTE TOPICAL (04:50)
[2023-12-17 05:13] LABS: Absolute Lymphocyte Count 1.32 X10^3/uL (0.83-4.51); Absolute Neutrophil Count 8.5 X10^3/uL (2.0-7.7); Basophil# 0.04 X10^3/uL; Basophil% 0.4 % (0-1); Eosinophil# 0.19 X10^3/uL; Eosinophils% 1.7 % (0-5); Hematocrit 29.6 % (37-47); Hemoglobin 9.4 g/dL (12.0-15.0); Lymphocyte # 1.32 X10^3/ul (0.83-4.51); Lymphocyte % 11.9 % (19-41); Mean Corp Hgb Conc 31.8 g/dL (32-36); Mean Corpuscular Hgb 28.5 pg (27.0-32.0); Mean Corpuscular Volume 89.7 fL (81-99); Monocyte# 0.97 X10^3/uL; Monocyte% 8.7 % (0-10); NRBC Flagged by Analyzer 0 % (0-5); Neutrophil # 8.53 X10^3/uL (2.7-7.7); Neutrophil % 76.6 % (47-70); Platelet Count 209 K/mm3 (150-450); RBC Distribution Width CV 14.2 % (11.6-14.6); RBC Distribution Width SD 46.1 fl (35.1-43.9); White Blood Count 11.1 K/mm3 (4.4-11.0)
[2023-12-17 05:29] LABS: Anion Gap 5 (5-15); BUN 33 mg/dL (7-18); BUN/Creat Ratio 22.1 RATIO (10-20); Chloride 115 mmol/L (98-107); Creatinine, Serum 1.49 mg/dL (0.55-1.02); EST Glomerular Filtration Rate 36 mL/min (>60); Est Glom Filt Rate - Afr Amer 44 mL/min (>60); Estimated Creatinine Clearance 27.42 ml/min; Glucose 163 mg/dL (74-106); Potassium 3.6 mmol/L (3.5-5.1); Sodium Level 142 mmol/L (136-145)
--- NOTE | 2023-12-17 06:07 | PN.CC_ITS ---
Assessment & Plan Assessment/Plan (1) Septic shock: PLAN: Plan RECOMMENDATIONS: 1. Continue supplemental IV fluid hydration, with dietary advancement as tolerated. 2. Empiric antimicrobials, pending infectious workup. 3. Continue appropriate DVT prophylaxis. 4. Encourage incentive spirometer use and mobilize patient as tolerated. 5. If the patient remains hemodynamically stable over the course of the morning, she can likely be transferred out of the medical intensive care unit. IMPRESSIONS: 1. Multifactorial shock Clinical concern for underlying septic and hypovolemic etiologies. The patient presented to the hospital with sepsis due to possible urinary tract source of infection with acute sepsis related organ dysfunction as evidenced by acute kidney injury, lactic acidemia and fluid refractory hypotension, requiring vasopressor support. The patient was placed on appropriate broad-spectrum antimicrobials. She has since been weaned from Levophed. Renal ultrasound demonstrated persistent or worsening hydronephrosis bilaterally. However, there is no urologist available for consultation. No catheter has been placed. Continue current supportive care. 2. Acute on chronic kidney disease Improving. Most likely prerenal in etiology in the setting of #1. Anticipate further improvement in renal function with stabilization and hemodynamic status. Continue to monitor urine output. No current indication for renal replacement therapy. 3. Generalized weakness/hypothyroidism/history of recurrent UTI/anemia/diabetes mellitus/coronary artery disease/dementia/Parkinson's Complicates care, management, recovery and prognosis. Continue supportive measures as noted above. Physical therapy to work with the patient. CODE STATUS: Full code This note was generated with [employer] dictation software. It may contain incorrect words, spelling, and punctuation that were not noted in checking the note before signing. Subjective Subjective The patient was seen and examined at the bedside this morning. Events from the last 24 hours have been reviewed. The patient is currently afebrile, hemodynamically stable and maintaining appropriate oxygen saturations on room air. The patient was weaned off of Levophed early this morning. White count is mildly elevated at 11,000. Creatinine has significantly improved to 1.49. The patient has no specific complaints this morning. Objective Data Objective Data The patient's most recent lab work, culture data and imaging studies have all been personally reviewed. Blood and urine cultures are pending. Vital Signs: Vital Signs Temp Pulse Resp BP Pulse Ox O2 Del Method 98.9 F 74 19 H 104/50 L 96 Room Air 12/17/23 00:00 12/17/23 04:00 12/17/23 04:00 12/17/23 04:15 12/17/23 04:00 12/17/23 04:00 Oxygen Delivery Method Room Air Weight: 137 lb 2.04 oz Body Mass Index (BMI) 25.2 Intake & Output: Intake and Output for Last 24 Hours 12/15/23 12/16/23 12/17/23 23:59 23:59 23:59 Intake Total 3270.83 / 3270.83 5251.64 / 5255.44 61.90 / 61.90 Output Total 3135 / 3135 815 / 815 Balance 3270.83 / 3265.83 2116.64 / 2120.44 -753.10 / -753.10 Lab / Micro Data Attestation: I reviewed the patient's lab results. 12/17/23 05:06 12/17/23 05:06 Labs: Laboratory Results - last 24 hr 12/16/23 03:55: Hemoglobin A1c 6.4 H 12/16/23 07:39: POC Glucose 159 H 12/16/23 10:30: Sodium 144, Potassium 3.9, Chloride 119 H, Carbon Dioxide 18.0 L , Anion Gap 7, BUN 56 H, Creatinine 1.86 H, Estim Creat Clear Calc 21.70, Est GFR (MDRD) Af Amer 34 L, Est GFR (MDRD) Non-Af 28 L, BUN/Creatinine Ratio 30.1 H , Glucose 247 H, Calcium 8.3 L 12/16/23 11:00: POC Glucose 203 H 12/16/23 16:30: POC Glucose 276 H 12/16/23 20:46: POC Glucose 183 H 12/17/23 05:06: WBC 11.1 H, RBC 3.30 L, Hgb 9.4 L, Hct 29.6 L, MCV 89.7, MCH 28.5, MCHC 31.8 L, RDW Std Deviation 46.1 H, RDW Coeff of Festus 14.2, Plt Count 209, MPV 10.0, Immature Gran % (Auto) 0.700, Neut % (Auto) 76.6 H, Lymph % (Auto) 11.9 L, [place] % (Auto) 8.7, Eos % (Auto) 1.7, Baso % (Auto) 0.4, Absolute Neuts (auto) 8.5 H, Absolute Lymphs (auto) 1.32, Nucleated RBC % 0, Sodium 142, Potassium 3.6, Chloride 115 H, Carbon Dioxide 22.0, Anion Gap 5, BUN 33 H, C reatinine 1.49 H, Estim Creat Clear Calc 27.42, Est GFR (MDRD) Af Amer 44 L, Est GFR (MDRD) Non-Af 36 L, BUN/Creatinine Ratio 22.1 H, Glucose 163 H, Calcium 8.0 L Micro: Microbiology 12/15/23 23:20 Mucosa - Nasopharyngeal SARS-CoV-2, Influenza & RSV (PCR) - Final Physical Exam Const alert and no apparent distress General Appearance: cooperative HEENT normocephalic and head/scalp atraumatic Eyes PERRL, EOMs intact bilaterally and conjunctivae normal Neck supple General: trachea midline Chest inspection of chest normal Resp normal respiratory effort Auscultation: diminished lung sounds; Negative for rales, rhonchi or wheezes Cardio regular rate, regular rhythm, S1 normal heart sound and S2 normal heart sound GI normal to inspection, nondistended, normoactive bowel sounds Extremity General Extremity: Negative for clubbing Skin no rashes or lesions noted Neuro CN's II-XII intact bilaterally and no focal motor deficits Psych Mood & Affect: flat affect Charges/Coding Visit Charges Inpatient E&M: 90071 Subs Hosp L3
--- NOTE | 2023-12-17 07:23 | PN.HOSP_ITS ---
Reason for Visit Reason for Visit: Diagnoses Sepsis, unspecified organism (12/15/23) Acidosis, unspecified (12/15/23) Diarrhea, unspecified (12/15/23) Severe sepsis with septic shock (12/15/23) Subjective Subjective Weaned off pressors. No further BMs. Objective Data Objective Data Vital Signs: Vital Signs Temp Pulse Resp BP Pulse Ox O2 Del Method 36.5 C L 71 19 H 96/50 L 97 Room Air 12/17/23 06:00 12/17/23 07:00 12/17/23 07:00 12/17/23 07:00 12/17/23 07:00 12/17/23 07:00 Oxygen Delivery Method Room Air Weight: 62.2 kg Body Mass Index (BMI) 25.2 Intake & Output: Intake and Output for Last 24 Hours 12/15/23 12/16/23 12/17/23 23:59 23:59 23:59 Intake Total 3270.83 / 3270.83 5251.64 / 5255.44 61.90 / 61.90 Output Total 3135 / 3135 815 / 815 Balance 3270.83 / 3265.83 2116.64 / 2120.44 -753.10 / -753.10 Lab / Micro Data 12/17/23 05:06 12/17/23 05:06 Labs: Laboratory Results - last 24 hr 12/16/23 03:55: Hemoglobin A1c 6.4 H 12/16/23 07:39: POC Glucose 159 H 12/16/23 10:30: Sodium 144, Potassium 3.9, Chloride 119 H, Carbon Dioxide 18.0 L , Anion Gap 7, BUN 56 H, Creatinine 1.86 H, Estim Creat Clear Calc 21.70, Est GFR (MDRD) Af Amer 34 L, Est GFR (MDRD) Non-Af 28 L, BUN/Creatinine Ratio 30.1 H , Glucose 247 H, Calcium 8.3 L 12/16/23 11:00: POC Glucose 203 H 12/16/23 16:30: POC Glucose 276 H 12/16/23 20:46: POC Glucose 183 H 12/17/23 05:06: WBC 11.1 H, RBC 3.30 L, Hgb 9.4 L, Hct 29.6 L, MCV 89.7, MCH 28.5, MCHC 31.8 L, RDW Std Deviation 46.1 H, RDW Coeff of Festus 14.2, Plt Count 209, MPV 10.0, Immature Gran % (Auto) 0.700, Neut % (Auto) 76.6 H, Lymph % (Auto) 11.9 L, [place] % (Auto) 8.7, Eos % (Auto) 1.7, Baso % (Auto) 0.4, Absolute Neuts (auto) 8.5 H, Absolute Lymphs (auto) 1.32, Nucleated RBC % 0, Sodium 142, Potassium 3.6, Chloride 115 H, Carbon Dioxide 22.0, Anion Gap 5, BUN 33 H, C reatinine 1.49 H, Estim Creat Clear Calc 27.42, Est GFR (MDRD) Af Amer 44 L, Est GFR (MDRD) Non-Af 36 L, BUN/Creatinine Ratio 22.1 H, Glucose 163 H, Calcium 8.0 L Micro: Microbiology 12/15/23 23:20 Mucosa - Nasopharyngeal SARS-CoV-2, Influenza & RSV (PCR) - Final Physical Exam Const alert and no apparent distress Resp normal respiratory effort, no retractions, no use of accessory muscles and clear to auscultation bilaterally Cardio regular rate, regular rhythm, S1 normal heart sound and S2 normal heart sound GI normal to inspection, nondistended, normoactive bowel sounds, soft to palpation, non-tender and non-distended Extremity normal to inspection and full ROM Assessment & Plan Assessment/Plan (1) Diarrhea: PLAN: Plan YAMILEX * Improving. Admitting creatinine 3.36, now down to 1.49. Baseline is around 1.24. * Continue with IV fluids. * Renal ultrasound shows persistent or worsening hydronephrosis bilaterally with increased prominence of pelviectasis bilaterally. Will hold off on urology evaluation at this time. septic shock * norepinephrine gtt started. since weaned off. * CCM consult * unclear source, though may be urinary. Lactic acidosis * Admission lactate of 8.3, trended down to 2.5. * Likely combination of dehydration as well as concomitant use of metformin. * Will continue empirically with antibiotics with pip-tazo and vancomycin for now. C. difficile pending. Depending on the infectious workup, either 1 or both antibiotics could be discontinued. * Continue to hold metformin Chronic conditions * Hypothyroidism-Continue Synthroid * Parkinson's disease/MCI-Continue home [id number]'s home meds not yet updated, unclear if she is taking memantine or Risperdal, would need to reduce with dose of Risperdal likely given her kidney function and would plan to hold memantine during critical illness * Type 2 diabetes mellitus-Glucose checks and sliding scale insulin-Hold oral hypoglycemics * Hx CAD s/p CABG-Continue aspirin and statin-Hold metoprolol given low blood pressure DVT ppx: Heparin subcu Transfer out of ICU Charges/Coding Visit Charges Inpatient E&M: 62578 Subs Hosp L2
[2023-12-17] MEDS: Piperacil/Tazobactam 3.375 GM in 0.9% Normal Saline (50mL MB+) 50 ML IV ×2 (08:18→20:53)
[2023-12-17] MEDS: Aspirin E.C. 81 MG Tablet PO (08:28)
[2023-12-17] MEDS: Heparin Injection (Vial) 5,000 UNIT/ML VIAL 5000 UNIT SC ×2 (08:33→20:53)
[2023-12-17] MEDS: Insulin Lispro 100 UNIT/ML INSULN.PEN SC ×4 (08:37→20:52)
[2023-12-17] MEDS: Lactated Ringers 1,000 ML 100 ML IV ×2 (11:58→20:53)
[2023-12-17] MEDS: Acetaminophen 325 MG Tablet 650 MG PO (11:58)
[2023-12-17 12:08] LABS: Bedside Glucose 199 mg/dL (74-106)
--- NOTE | 2023-12-17 13:43 | CHAPLAIN ---
Type of Pastoral Visit _x__ Initial Visit ___ Follow-up Visit ___ On-call Visit ___ General Patient Visit ___ Spiritual Assessment ___ Family Conference ___ Bereavement ___ Rapid Response ___ Code Blue ___ Other (describe below) Pastoral Care Referral From _x__ Patient ___ Family ___ Nurse ___ Physician ___ Network Operations Project Manager ___ Meatman ___ Other (describe below) Sacrament/Intervention ___ Active listening ___ Anointing ___ Confucianist ___ Bereavement ___ Communion ___ Debora exploration ___ ___ Life review _x__ Prayer ___ Reconciliation ___ Sacrament of Sick _x__ Supportive presence ___ Wedding ___ Other (describe below) Pastoral Comments patient is welcoming and pleasant; pt responds to questions with mostly one word answers and in a positive way; pt only concerns are to get well and for her ; pt welcomes presence and prayer
[2023-12-17] MEDS: Vancomycin Trough/Random Due 1 LAB MC (16:35)
[2023-12-17 16:48] LABS: Bedside Glucose 156 mg/dL (74-106)
[2023-12-17 17:01] LABS: Vancomycin, Trough Level 8.6 ug/mL (5.0-15.0)
--- NOTE | 2023-12-17 17:14 | PCM.RX.CS ---
Consult Antibiotic Management Pharmacy has been consulted to manage selected antibiotic: Vancomycin Type of Intervention Type of Consult: Follow-up Suspected Infection Suspected Infection: Sepsis Prior Doses of Antibiotics Prior Doses of Antibiotics Received/Current Regimen: Vancomycin 500 mg Q24H last given 12/16/23 @ 1903 Labs Labs: Sodium 142 mmol/L (136-145) 12/17/23 05:06 Potassium 3.6 mmol/L (3.5-5.1) 12/17/23 05:06 Chloride 115 mmol/L (98-107) H 12/17/23 05:06 Carbon Dioxide 22.0 mmol/L (21.0-32.0) 12/17/23 05:06 Anion Gap 5 (5-15) 12/17/23 05:06 BUN 33 mg/dL (7-18) H 12/17/23 05:06 Creatinine 1.49 mg/dL (0.55-1.02) H 12/17/23 05:06 Est GFR (MDRD) Af Amer 44 mL/min (>60) L 12/17/23 05:06 Est GFR (MDRD) Non-Af 36 mL/min (>60) L 12/17/23 05:06 BUN/Creatinine Ratio 22.1 RATIO (10-20) H 12/17/23 05:06 Glucose 163 mg/dL (74-106) H 12/17/23 05:06 Vancomycin Trough 8.6 ug/mL (5.0-15.0) 12/17/23 16:30 Microbiology Microbiology: Microbiology 12/15/23 16:25 Urine Catheter - Catheter Urine Culture - Preliminary Culture exhibits no growth. 12/15/23 23:20 Mucosa - Nasopharyngeal SARS-CoV-2, Influenza & RSV (PCR) - Final Dosing Weight Weight used for dosin kg Estimated Creatinine Clearance Estimated Creatinine Clearance: ~27 Goal Trough Goal Trough: 15-20 mcg/mL Pharmacy Plan for Drug Dosing Pharmacy Plan for Drug Dosing: Vancomycin trough = 8.6, increase to 1000 mg Q24H. Pharmacy Service will continue to monitor and adjust dosing as required. Follow-Up Labs Follow-Up Labs: Trough: Vancomycin Date/Time Labs Ordered Labs to be done on [date and time ordered]: 12/19/23 @ 1635
[2023-12-17] MEDS: Vancomycin IV 1,000 MG/200 ML BAG 200 MG IV (17:16)
[2023-12-17] MEDS: Atorvastatin Calcium 10 MG Tablet PO (20:59)
[2023-12-17 21:17] LABS: Bedside Glucose 174 mg/dL (74-106)
[2023-12-18] VITALS (8 sets, daily range): BP systolic 110–131; BP diastolic 57–70; PULSE 71–86; RESP 18–23; TEMP 36.4–37.2; O2SAT 96–98; BMI 25.2
[2023-12-18 04:25] LABS: Absolute Lymphocyte Count 0.83 X10^3/uL (0.83-4.51); Basophil# 0.03 X10^3/uL; Basophil% 0.3 % (0-1); Eosinophil# 0.11 X10^3/uL; Hematocrit 30.2 % (37-47); Hemoglobin 9.8 g/dL (12.0-15.0); Lymphocyte # 0.83 X10^3/ul (0.83-4.51); Lymphocyte % 7.6 % (19-41); Mean Corp Hgb Conc 32.5 g/dL (32-36); Mean Corpuscular Volume 89.3 fL (81-99); Mean Platelet Vol. 10.5 fl (6.2-12.0); Monocyte# 0.92 X10^3/uL; Monocyte% 8.4 % (0-10); NRBC Flagged by Analyzer 0 % (0-5); Neutrophil # 8.96 X10^3/uL (2.7-7.7); Neutrophil % 82.2 % (47-70); Platelet Count 200 K/mm3 (150-450); Red Blood Count 3.38 M/mm3 (4.2-5.4); White Blood Count 10.9 K/mm3 (4.4-11.0)
[2023-12-18] MEDS: 0.9% Normal Saline (250mL Bag) 250 ML 15 ML IV (05:11)
[2023-12-18] MEDS: Lactated Ringers 1,000 ML 100 ML IV ×2 (05:11→14:51)
[2023-12-18] MEDS: Levothyroxine 50 MCG Tablet PO (05:12)
[2023-12-18] MEDS: Carbidopa/Levodopa 25/100 Tablet PO ×3 (05:12→21:13)
[2023-12-18 05:28] LABS: Anion Gap 5 (5-15); BUN 20 mg/dL (7-18); BUN/Creat Ratio 14.5 RATIO (10-20); Calcium,Total 8.9 mg/dL (8.5-10.1); Chloride 112 mmol/L (98-107); Creatinine, Serum 1.38 mg/dL (0.55-1.02); EST Glomerular Filtration Rate 39 mL/min (>60); Est Glom Filt Rate - Afr Amer 48 mL/min (>60); Estimated Creatinine Clearance 29.61 ml/min; Glucose 187 mg/dL (74-106); Potassium 3.5 mmol/L (3.5-5.1); Sodium Level 142 mmol/L (136-145)
--- NOTE | 2023-12-18 07:54 | PN.HOSP_ITS ---
Reason for Visit Reason for Visit: Diagnoses Sepsis, unspecified organism (12/15/23) Acidosis, unspecified (12/15/23) Diarrhea, unspecified (12/15/23) Severe sepsis with septic shock (12/15/23) Subjective Subjective Feels well. No new issues. Objective Data Objective Data Vital Signs: Vital Signs Temp Pulse Resp BP Pulse Ox O2 Del Method 37.2 C 86 20 H 110/58 L 96 Room Air 12/18/23 02:00 12/18/23 02:00 12/18/23 02:00 12/18/23 02:00 12/18/23 06:00 12/18/23 06:00 Oxygen Delivery Method Room Air Weight: 62.1 kg Body Mass Index (BMI) 25.2 Intake & Output: Intake and Output for Last 24 Hours 12/16/23 12/17/23 12/18/23 23:59 23:59 23:59 Intake Total 5251.64 / 5255.44 2683.57 / 2683.57 880 / 880 Output Total 3135 / 3135 1915 / 2065 950 / 950 Balance 2116.64 / 2120.44 768.57 / 618.57 -70 / -70 Lab / Micro Data 12/18/23 03:40 12/18/23 03:40 Labs: Laboratory Results - last 24 hr 12/17/23 11:46: POC Glucose 199 H 12/17/23 16:30: Vancomycin Trough 8.6, POC Glucose 156 H 12/17/23 20:50: POC Glucose 174 H 12/18/23 03:40: WBC 10.9, RBC 3.38 L, Hgb 9.8 L, Hct 30.2 L, MCV 89.3, MCH 29.0, MCHC 32.5, RDW Std Deviation 46.0 H, RDW Coeff of Festus 14.0, Plt Count 200, MPV 10.5, Immature Gran % (Auto) 0.500, Neut % (Auto) 82.2 H, Lymph % (Auto) 7.6 L, [place] % (Auto) 8.4, Eos % (Auto) 1.0, Baso % (Auto) 0.3, Absolute Neuts (auto) 9.0 H, Absolute Lymphs (auto) 0.83, Nucleated RBC % 0, Sodium 142, Potassium 3.5, Chloride 112 H, Carbon Dioxide 25.0, Anion Gap 5, BUN 20 H, Creatinine 1.38 H, Estim Creat Clear Calc 29.61, Est GFR (MDRD) Af Amer 48 L, Est GFR (MDRD) Non-Af 39 L, BUN/Creatinine Ratio 14.5, Glucose 187 H, Calcium 8.9 Micro: Microbiology 12/15/23 16:25 Urine Catheter - Catheter Urine Culture - Preliminary Culture exhibits no growth. 12/15/23 23:20 Mucosa - Nasopharyngeal SARS-CoV-2, Influenza & RSV (PCR) - Final Physical Exam Const alert and no apparent distress HEENT head/scalp atraumatic and moist oral mucous membranes Resp normal respiratory effort, no retractions, no use of accessory muscles and clear to auscultation bilaterally Cardio regular rate, regular rhythm, S1 normal heart sound and S2 normal heart sound GI normal to inspection, nondistended, normoactive bowel sounds, soft to palpation, non-tender and non-distended Neuro Sensorium / Orientation: awake and alert Assessment & Plan Assessment/Plan (1) Diarrhea: PLAN: Plan YAMILEX * Improving. Admitting creatinine 3.36, now down to 1.38. Baseline is around 1.24. * Continue with IV fluids. * Renal ultrasound shows persistent or worsening hydronephrosis bilaterally with increased prominence of pelviectasis bilaterally. Will hold off on urology evaluation at this time. septic and hypovolemic shock * resolved * norepinephrine gtt started. since weaned off. * CCM consult * unclear source, though may be urinary. * Cx so far are negative Lactic acidosis * Admission lactate of 8.3, trended down to 2.5. * Likely combination of dehydration as well as concomitant use of metformin. * Will continue empirically with antibiotics with pip-tazo and vancomycin for now. C. difficile pending. Depending on the infectious workup, either 1 or both antibiotics could be discontinued. * Continue to hold metformin Chronic conditions * Hypothyroidism-Continue Synthroid * Parkinson's disease/MCI-Continue home carbidopa-levodopa * Type 2 diabetes mellitus-Glucose checks and sliding scale insulin-Hold oral hypoglycemics. a1c 6.4 * Hx CAD s/p CABG-Continue aspirin and statin-Hold metoprolol given low blood pressure DVT ppx: Heparin subcu Charges/Coding Visit Charges Inpatient E&M: 27316 Subs Hosp L2
[2023-12-18] MEDS: Aspirin E.C. 81 MG Tablet PO (08:24)
[2023-12-18] MEDS: Insulin Lispro 100 UNIT/ML INSULN.PEN SC ×3 (08:24→21:20)
[2023-12-18] MEDS: Heparin Injection (Vial) 5,000 UNIT/ML VIAL 5000 UNIT SC ×2 (08:25→21:13)
--- NOTE | 2023-12-18 09:38 | CASEMGMT ---
Discharge Planning A list of?SNF providers including quality and resource use data and consistent with the patient's preferred geographic region, medical needs, and insurance network was created in [facility].? This list was provided to the SW. Shirley Perry Discharge Planning Asst.
--- NOTE | 2023-12-18 10:16 | CASEMGMT ---
Social Work- SW met with pt to discuss preference at d/c. SW guided conversation on PT/OT evals and treatment and discussed their recommendations for additional rehab at d/c d/t current physical status. Pt states that she prefers to d/c home. SW provided education on safety and received pt permission to contact spouse Jeet to coordinate care needs. SW called Jeet and left a voicemail. ALEXUS Paredes
[2023-12-18] MEDS: Piperacil/Tazobactam 3.375 GM in 0.9% Normal Saline (50mL MB+) 50 ML IV ×2 (11:55→21:11)
[2023-12-18 12:09] LABS: Bedside Glucose 124 mg/dL (74-106)
--- NOTE | 2023-12-18 13:46 | CASEMGMT ---
Social Work- SW called pt spouse once again to attempt to make contact and left a voicemail in regards to d/c planning. ALEXUS Paredes
--- NOTE | 2023-12-18 14:25 | CASEMGMT ---
Social Work- SW spoke with pt spouse. There was a very poor phone connection which made conversation challenging. SW introduced self and role in d/c planning. SW discussed SNF options and educated on HHC scope and limitations. Pt spouse states pt was independent with toileting and ambulation until hospitalization and that he checks her butt every time she goes to the restroom for bleeding. Pt spouse reports he did notice she was stooped over. Pt spouse reports she has had 4 recent hospitalizations. Pt spouse reports a distance of 12-15 feet from recliner to bathroom. SW educated that pt went 3 feet with PT and 8 feet with OT. SW and pt had to end call d/t poor connection. SW called back and left a voicemail offering pt spouse to come in and watch/work with PT to better understand the feasibility of pt returning home with HHC and encouraged consideration of SNF d/t the potential lapse of time between d/c and HHC starting. SW remains available to follow. ALEXUS Paredes
[2023-12-18 16:53] LABS: Bedside Glucose 159 mg/dL (74-106)
[2023-12-18] MEDS: Vancomycin IV 1,000 MG/200 ML BAG 200 MG IV (17:09)
[2023-12-18] MEDS: Atorvastatin Calcium 10 MG Tablet PO (21:21)
[2023-12-18 21:48] LABS: Bedside Glucose 152 mg/dL (74-106)
[2023-12-19] VITALS (8 sets, daily range): BP systolic 97–133; BP diastolic 59–80; PULSE 74–96; RESP 16–20; TEMP 36.6–36.8; O2SAT 95–100; BMI 25.4
[2023-12-19] MEDS: Lactated Ringers 1,000 ML 100 ML IV ×3 (00:29→21:12)
[2023-12-19] MEDS: Carbidopa/Levodopa 25/100 Tablet PO ×3 (05:07→21:12)
[2023-12-19] MEDS: Levothyroxine 50 MCG Tablet PO (05:09)
[2023-12-19 05:13] LABS: Absolute Lymphocyte Count 1.27 X10^3/uL (0.83-4.51); Absolute Neutrophil Count 7.6 X10^3/uL (2.0-7.7); Basophil# 0.03 X10^3/uL; Basophil% 0.3 % (0-1); Eosinophil# 0.34 X10^3/uL; Eosinophils% 3.3 % (0-5); Hematocrit 30.2 % (37-47); Hemoglobin 9.7 g/dL (12.0-15.0); Lymphocyte # 1.27 X10^3/ul (0.83-4.51); Lymphocyte % 12.4 % (19-41); Mean Corp Hgb Conc 32.1 g/dL (32-36); Mean Corpuscular Hgb 28.9 pg (27.0-32.0); Mean Corpuscular Volume 89.9 fL (81-99); Mean Platelet Vol. 10.3 fl (6.2-12.0); Monocyte# 0.99 X10^3/uL; Monocyte% 9.6 % (0-10); NRBC Flagged by Analyzer 0 % (0-5); Neutrophil # 7.59 X10^3/uL (2.7-7.7); Neutrophil % 73.8 % (47-70); Platelet Count 187 K/mm3 (150-450); RBC Distribution Width CV 13.9 % (11.6-14.6); RBC Distribution Width SD 45.5 fl (35.1-43.9); Red Blood Count 3.36 M/mm3 (4.2-5.4); White Blood Count 10.3 K/mm3 (4.4-11.0)
[2023-12-19] MEDS: 0.9% Normal Saline (250mL Bag) 250 ML 15 ML IV (05:13)
[2023-12-19 05:43] LABS: Anion Gap 5 (5-15); BUN 13 mg/dL (7-18); BUN/Creat Ratio 9.8 RATIO (10-20); Calcium,Total 8.6 mg/dL (8.5-10.1); Chloride 109 mmol/L (98-107); Creatinine, Serum 1.33 mg/dL (0.55-1.02); EST Glomerular Filtration Rate 41 mL/min (>60); Est Glom Filt Rate - Afr Amer 50 mL/min (>60); Glucose 146 mg/dL (74-106); Potassium 3.7 mmol/L (3.5-5.1); Sodium Level 139 mmol/L (136-145)
--- NOTE | 2023-12-19 07:18 | PN.HOSP_ITS ---
Reason for Visit Reason for Visit: Diagnoses Sepsis, unspecified organism (12/15/23) Acidosis, unspecified (12/15/23) Diarrhea, unspecified (12/15/23) Severe sepsis with septic shock (12/15/23) Subjective Subjective Feeling good. Denies complaints. Objective Data Objective Data Vital Signs: Vital Signs Temp Pulse Resp BP Pulse Ox O2 Del Method 36.6 C 74 20 H 97/59 L 96 Room Air 12/19/23 02:00 12/19/23 02:00 12/19/23 02:00 12/19/23 02:00 12/19/23 05:56 12/19/23 05:56 Oxygen Delivery Method Room Air Weight: 62.9 kg Body Mass Index (BMI) 25.4 Intake & Output: Intake and Output for Last 24 Hours 12/17/23 12/18/23 12/19/23 23:59 23:59 23:59 Intake Total 2683.57 / 2683.57 2496.67 / 2496.67 1013.33 / 1013.33 Output Total 1915 / 2065 1600 / 1600 700 / 700 Balance 768.57 / 618.57 896.67 / 896.67 313.33 / 313.33 Lab / Micro Data 12/19/23 04:45 12/19/23 04:45 Labs: Laboratory Results - last 24 hr 12/18/23 11:47: POC Glucose 124 H 12/18/23 16:35: POC Glucose 159 H 12/18/23 21:20: POC Glucose 152 H 12/19/23 04:45: WBC 10.3, RBC 3.36 L, Hgb 9.7 L, Hct 30.2 L, MCV 89.9, MCH 28.9, MCHC 32.1, RDW Std Deviation 45.5 H, RDW Coeff of Festus 13.9, Plt Count 187, MPV 10.3, Immature Gran % (Auto) 0.600, Neut % (Auto) 73.8 H, Lymph % (Auto) 12.4 L, [place] % (Auto) 9.6, Eos % (Auto) 3.3, Baso % (Auto) 0.3, Absolute Neuts (auto) 7.6, Absolute Lymphs (auto) 1.27, Nucleated RBC % 0, Sodium 139, Potassium 3.7, Chloride 109 H, Carbon Dioxide 25.0, Anion Gap 5, BUN 13, Creatinine 1.33 H, Estim Creat Clear Calc 30.70, Est GFR (MDRD) Af Amer 50 L, Est GFR (MDRD) Non-Af 41 L, BUN/Creatinine Ratio 9.8 L, Glucose 146 H, Calcium 8.6 Micro: Microbiology 12/15/23 16:25 Urine Catheter - Catheter Urine Culture - Preliminary Yeast Like Organism 12/15/23 16:08 Blood Culture (Wb) - Left Hand Blood Culture - Preliminary No growth in 48 hours. 12/15/23 23:20 Mucosa - Nasopharyngeal SARS-CoV-2, Influenza & RSV (PCR) - Final Physical Exam Const alert and no apparent distress HEENT head/scalp atraumatic and moist oral mucous membranes Resp normal respiratory effort, no retractions, no use of accessory muscles and clear to auscultation bilaterally Cardio regular rate, regular rhythm, S1 normal heart sound and S2 normal heart sound GI normal to inspection, nondistended, normoactive bowel sounds, soft to palpation, non-tender and non-distended Extremity normal to inspection Assessment & Plan Assessment/Plan (1) Diarrhea: PLAN: Plan YAMILEX * Improving. Admitting creatinine 3.36, now down to 1.3. Baseline is around 1.24. * Continue with IV fluids. * Renal ultrasound shows persistent or worsening hydronephrosis bilaterally with increased prominence of pelviectasis bilaterally. Will hold off on urology evaluation at this time. septic and hypovolemic shock * resolved * norepinephrine gtt started. since weaned off. * unclear source, though may be urinary * Cx so far are negative. Since I suspect this may be urinary source and cultures being negative, will de-escalate antibiotics from pip-tazo and vancomycin to ceftriaxone. Patient has previously had E. coli that has been sensitive to ceftriaxone in the past. Lactic acidosis * Admission lactate of 8.3, trended down to 2.5. * Likely combination of dehydration as well as concomitant use of metformin. * Will continue empirically with antibiotics with pip-tazo and vancomycin for now. C. difficile pending. Depending on the infectious workup, either 1 or both antibiotics could be discontinued. * Continue to hold metformin Chronic conditions * Hypothyroidism-Continue Synthroid * Parkinson's disease/MCI-Continue home carbidopa-levodopa * Type 2 diabetes mellitus-Glucose checks and sliding scale insulin-Hold oral hypoglycemics. a1c 6.4 * Hx CAD s/p CABG-Continue aspirin and statin-Hold metoprolol given low blood pressure DVT ppx: Heparin subcu Charges/Coding Visit Charges Inpatient E&M: 52376 Subs Hosp L2
[2023-12-19] MEDS: Heparin Injection (Vial) 5,000 UNIT/ML VIAL 5000 UNIT SC ×2 (08:17→21:12)
[2023-12-19] MEDS: CHLORHEXIDINE GLUC 2% CLOTH 1 EACH TOWELETTE TOPICAL (08:19)
[2023-12-19] MEDS: Acetaminophen 325 MG Tablet 650 MG PO ×3 (08:19→21:14)
[2023-12-19] MEDS: Aspirin E.C. 81 MG Tablet PO (08:19)
[2023-12-19] MEDS: Piperacil/Tazobactam 3.375 GM in 0.9% Normal Saline (50mL MB+) 50 ML IV (10:13)
[2023-12-19 11:56] LABS: Bedside Glucose 150 mg/dL (74-106)
[2023-12-19] MEDS: Insulin Lispro 100 UNIT/ML INSULN.PEN SC ×2 (16:33→21:12)
[2023-12-19 16:53] LABS: Bedside Glucose 162 mg/dL (74-106)
--- NOTE | 2023-12-19 18:21 | NURSING ---
report called to pcu fro transfer to room 120, transferred per chair with belongings
--- NOTE | 2023-12-19 18:35 | NURSING ---
This RN is taking over care at this time.
[2023-12-19] MEDS: Atorvastatin Calcium 10 MG Tablet PO (21:13)
[2023-12-19 21:50] LABS: Bedside Glucose 156 mg/dL (74-106)
[2023-12-20 03:00] VITALS: BP 127/86; PULSE 79; RESP 18; TEMP 36.4; O2SAT 97
[2023-12-20 04:02] VITALS: BMI 26.3
[2023-12-20] MEDS: Carbidopa/Levodopa 25/100 Tablet PO ×3 (06:41→21:15)
[2023-12-20] MEDS: Levothyroxine 50 MCG Tablet PO (06:42)
[2023-12-20] MEDS: Acetaminophen 325 MG Tablet 650 MG PO ×2 (06:43→13:09)
[2023-12-20] MEDS: Lactated Ringers 1,000 ML 100 ML IV (06:53)
[2023-12-20 07:14] LABS: Bedside Glucose 148 mg/dL (74-106)
[2023-12-20 09:03] VITALS: BP 123/73; PULSE 87; RESP 16; TEMP 36.7; O2SAT 96
[2023-12-20] MEDS: Aspirin E.C. 81 MG Tablet PO (09:09)
[2023-12-20] MEDS: Heparin Injection (Vial) 5,000 UNIT/ML VIAL 5000 UNIT SC ×2 (09:09→21:14)
--- NOTE | 2023-12-20 09:32 | PN.HOSP_ITS ---
Reason for Visit Reason for Visit: Diagnoses Sepsis, unspecified organism (12/15/23) Acidosis, unspecified (12/15/23) Diarrhea, unspecified (12/15/23) Severe sepsis with septic shock (12/15/23) Subjective Subjective Complaining of back pain today. Objective Data Objective Data Vital Signs: Vital Signs Temp Pulse Resp BP Pulse Ox O2 Del Method 36.7 C 87 16 123/73 H 96 Room Air 12/20/23 09:03 12/20/23 09:03 12/20/23 09:03 12/20/23 09:03 12/20/23 09:03 12/20/23 09:03 Oxygen Delivery Method Room Air Weight: 64.9 kg Body Mass Index (BMI) 26.3 Intake & Output: Intake and Output for Last 24 Hours 12/18/23 12/19/23 12/20/23 23:59 23:59 23:59 Intake Total 2496.67 / 2496.67 3567.75 / 3717.75 1268.33 / 1268.33 Output Total 1600 / 1600 1350 / 1650 1100 / 1100 Balance 896.67 / 896.67 2217.75 / 2067.75 168.33 / 168.33 Lab / Micro Data 12/19/23 04:45 12/19/23 04:45 Labs: Laboratory Results - last 24 hr 12/19/23 11:38: POC Glucose 150 H 12/19/23 16:05: Vancomycin Trough 17.0 H 12/19/23 16:29: POC Glucose 162 H 12/19/23 21:11: POC Glucose 156 H 12/20/23 06:48: POC Glucose 148 H Micro: Microbiology 12/15/23 16:25 Urine Catheter - Catheter Urine Culture - Final Yeast, not Nabila albicans 12/15/23 16:08 Blood Culture (Wb) - Left Hand Blood Culture - Preliminary No growth in 48 hours. 12/15/23 23:20 Mucosa - Nasopharyngeal SARS-CoV-2, Influenza & RSV (PCR) - Final Physical Exam Const alert and no apparent distress Constitutional Narrative: Reproducible paraspinal muscle tenderness. HEENT head/scalp atraumatic and moist oral mucous membranes Resp normal respiratory effort, no retractions, no use of accessory muscles and clear to auscultation bilaterally Cardio regular rate, regular rhythm, S1 normal heart sound and S2 normal heart sound GI normal to inspection, nondistended, normoactive bowel sounds, soft to palpation, non-tender and non-distended Neuro Sensorium / Orientation: awake and alert Assessment & Plan Assessment/Plan (1) Diarrhea: PLAN: Plan YAMILEX * Resolved Admitting creatinine 3.36, now down to 1.3. Baseline is around 1.24. * Continue with IV fluids. * Renal ultrasound shows persistent or worsening hydronephrosis bilaterally with increased prominence of pelviectasis bilaterally. Will hold off on inpatient urology evaluation at this time, but should follow up as outpt. . septic and hypovolemic shock * resolved * norepinephrine gtt started. since weaned off. * unclear source, though may be urinary (yeast in UCx not felt to be true pathogen) * Cx so far are negative. Since I suspect this may be urinary source and cultures being negative, will de-escalate antibiotics from pip-tazo and vancomycin to ceftriaxone. Patient has previously had E. coli that has been sensitive to ceftriaxone in the past. Continue abx through 12/21 Lactic acidosis * Admission lactate of 8.3, trended down to 2.5. * Likely combination of dehydration as well as concomitant use of metformin. * Will continue empirically with antibiotics with pip-tazo and vancomycin for now. C. difficile pending. Depending on the infectious workup, either 1 or both antibiotics could be discontinued. * Continue to hold metformin Chronic conditions * Hypothyroidism-Continue Synthroid * Parkinson's disease/MCI-Continue home carbidopa-levodopa * Type 2 diabetes mellitus-Glucose checks and sliding scale insulin-Hold oral hypoglycemics. a1c 6.4 * Hx CAD s/p CABG-Continue aspirin and statin-Hold metoprolol given low blood pressure DVT ppx: Heparin subcu Debility: Patient is pretty weak but is still undecided about long term versus home health care. Will discuss with and let us know what ultimately her decision is. But given her weakness and debility, I do not think that she is going to thrive at home and be more likely going to a long term facility. Charges/Coding Visit Charges Inpatient E&M: 29960 Subs Hosp L2
[2023-12-20] MEDS: 0.9% Normal Saline (250mL Bag) 250 ML 15 ML IV (09:45)
[2023-12-20] MEDS: 0.9% Saline Lock 10 ML Syringe IV ×2 (09:45→13:09)
[2023-12-20] MEDS: Ceftriaxone 1 GM/50 ML BAG IV (11:07)
[2023-12-20 11:32] LABS: Bedside Glucose 149 mg/dL (74-106)
[2023-12-20 15:18] VITALS: BP 107/67; PULSE 105; RESP 16; TEMP 36.6; O2SAT 97
[2023-12-20] MEDS: Insulin Lispro 100 UNIT/ML INSULN.PEN SC (16:24)
[2023-12-20 16:46] LABS: Bedside Glucose 154 mg/dL (74-106)
[2023-12-20 21:11] VITALS: BP 126/57; PULSE 88; RESP 16; TEMP 37; O2SAT 98
[2023-12-20 21:12] VITALS: BP 126/57; PULSE 88; RESP 16; TEMP 37; O2SAT 98
[2023-12-20] MEDS: Atorvastatin Calcium 10 MG Tablet PO (21:15)
[2023-12-20] MEDS: Acetaminophen 500 MG Tablet 1000 MG PO (21:19)
[2023-12-20] MEDS: Menthol/Lanolin/Calamine/Znox 113 GM Tube 1 APPLIC TOPICAL (21:20)
[2023-12-20 22:19] LABS: Bedside Glucose 133 mg/dL (74-106)
[2023-12-21] VITALS (7 sets, daily range): BP systolic 96–122; BP diastolic 34–67; PULSE 66–81; RESP 14–16; TEMP 36.5–37.2; O2SAT 93–98; BMI 26.2
[2023-12-21] MEDS: Carbidopa/Levodopa 25/100 Tablet PO ×3 (06:13→22:04)
[2023-12-21] MEDS: Acetaminophen 500 MG Tablet 1000 MG PO ×3 (06:13→22:04)
[2023-12-21] MEDS: Levothyroxine 50 MCG Tablet PO (06:14)
[2023-12-21 06:39] LABS: Bedside Glucose 114 mg/dL (74-106)
[2023-12-21 08:18] LABS: Anion Gap 7 (5-15); BUN 16 mg/dL (7-18); BUN/Creat Ratio 10.7 RATIO (10-20); Calcium,Total 8.4 mg/dL (8.5-10.1); Chloride 111 mmol/L (98-107); Creatinine, Serum 1.49 mg/dL (0.55-1.02); EST Glomerular Filtration Rate 36 mL/min (>60); Est Glom Filt Rate - Afr Amer 44 mL/min (>60); Estimated Creatinine Clearance 27.88 ml/min; Glucose 119 mg/dL (74-106); Potassium 3.2 mmol/L (3.5-5.1); Sodium Level 143 mmol/L (136-145)
[2023-12-21 08:22] LABS: Absolute Lymphocyte Count 0.98 X10^3/uL (0.83-4.51); Absolute Neutrophil Count 6.5 X10^3/uL (2.0-7.7); Basophil# 0.03 X10^3/uL; Basophil% 0.3 % (0-1); Eosinophil# 0.24 X10^3/uL; Eosinophils% 2.8 % (0-5); Hematocrit 29.7 % (37-47); Hemoglobin 9.3 g/dL (12.0-15.0); Lymphocyte # 0.98 X10^3/ul (0.83-4.51); Lymphocyte % 11.4 % (19-41); Mean Corp Hgb Conc 31.3 g/dL (32-36); Mean Corpuscular Hgb 28.6 pg (27.0-32.0); Mean Corpuscular Volume 91.4 fL (81-99); Monocyte% 9.3 % (0-10); NRBC Flagged by Analyzer 0 % (0-5); Neutrophil # 6.48 X10^3/uL (2.7-7.7); Neutrophil % 75.5 % (47-70); Platelet Count 236 K/mm3 (150-450); RBC Distribution Width CV 14.2 % (11.6-14.6); RBC Distribution Width SD 47.7 fl (35.1-43.9); Red Blood Count 3.25 M/mm3 (4.2-5.4); White Blood Count 8.6 K/mm3 (4.4-11.0)
[2023-12-21] MEDS: Lidocaine 5% Patch 1 PATCH TOPICAL (08:28)
[2023-12-21] MEDS: Aspirin E.C. 81 MG Tablet PO (08:28)
[2023-12-21] MEDS: Heparin Injection (Vial) 5,000 UNIT/ML VIAL 5000 UNIT SC ×2 (08:29→22:04)
[2023-12-21] MEDS: Menthol/Lanolin/Calamine/Znox 113 GM Tube 1 APPLIC TOPICAL ×2 (08:30→22:02)
[2023-12-21] MEDS: Ceftriaxone 1 GM/50 ML BAG IV (10:45)
[2023-12-21] MEDS: Insulin Lispro 100 UNIT/ML INSULN.PEN SC (10:46)
[2023-12-21 11:10] LABS: Bedside Glucose 167 mg/dL (74-106)
[2023-12-21 16:23] LABS: Bedside Glucose 111 mg/dL (74-106)
--- NOTE | 2023-12-21 16:28 | PN.HOSP_ITS ---
Reason for Visit Reason for Visit: Diarrhea Subjective Subjective Mrs. Rod is a 78-year-old white female who presented to the emergency department at [facility] on 12/15/2019 for due to diarrhea that started on the morning of admission. She also had some generalized abdominal pain and generalized weakness. She felt she was so weak she could not walk. She stated by the time she had to emergency department her pain and diarrhea had improved some. She denied any nausea vomiting and had no fevers, chest pain, or shortness of breath. Vital signs on presentation showed temperature of 98.2, heart rate 94, respiratory rate 32, blood pressure was 98/69 and pulse ox was 95% on room air. CBC showed a significant leukocytosis with a white count of 16.4 and she appeared to be hemoconcentrated as she has a baseline hemoglobin between 9 and 10 and hemoglobin on presentation was 13.8. Chemistry panel showed normal electrolytes however she had significant acute kidney injury with a creatinine of 3.36 and a baseline of 1.35-1.75. Her glucose was found to be markedly elevated at 302. She had a significant anion gap metabolic acidosis with a serum bicarb of 13 and anion gap of 18. Lactic acid was 8.3. Liver functions were normal and lipase was normal. TSH was found to be normal. A CT of the abdomen pelvis was performed and found no masses or bowel obstruction/abscess and no evidence of appendicitis. She had hydronephrosis and hydroureter bilaterally at the level of UVJ's with no obstructing calcification or definitive masses, cholelithiasis without ductal dilation and moderate coronary vascular calcifications. Chest x-ray showed postoperative changes from prior CABG and no evidence of acute cardiopulmonary processes. Due to the hydronephrosis noted on the imaging and renal ultrasound was performed and showed persistent or worsening hydronephrosis bilaterally with increased prominence of the pelviectasis bilaterally, no solid or cystic masses and bilateral ureteral jets were noted. Given these findings I did discuss her case with Dr. Ramirez today who reviewed the images and recommended that we keep her No in at the time of discharge and have her follow-up as an outpatient. She did not feel that anything acutely needed to be done while she was hospitalized. Cultures were obtained and she was placed on broad-spectrum antibiotics. Fluid resuscitation was initiated the emergency department however despite fluid resuscitation she had none fluid responsive hypotension and vasopressors were initiated. PICC line was placed on 12/16/2023. She was able to be weaned off pressors quite quickly and was able to be transferred out of the ICU to the medical floor on 12/17/2023. Given her presentation of septic shock despite negative cultures, she was treated with a complete course of antibiotics having ceftriaxone for total of 7 days. She had previously had E. coli in her urine that was sensitive to ceftriaxone so this was felt to be an appropriate choice. Her renal function has since returned to baseline. Patient has no acute complaints today. She just indicated she was sleepy. It was noted that she fatigued easily with physical therapy and was only able to walk 10 feet x 1 and 8 feet x 1. Ongoing therapy has been recommended at the time of discharge. Is complaining of some back pain and states that this is more chronic for her. Objective Data Objective Data Vital Signs: Vital Signs Temp Pulse Resp BP Pulse Ox O2 Del Method 98.2 F 81 14 114/67 95 Room Air 12/21/23 13:44 12/21/23 13:44 12/21/23 13:44 12/21/23 13:44 12/21/23 13:44 12/21/23 14:00 Oxygen Delivery Method Room Air Weight: 64.5 kg Body Mass Index (BMI) 26.2 Intake & Output: Intake and Output for Last 24 Hours 12/19/23 12/20/23 12/21/23 23:59 23:59 23:59 Intake Total 3567.75 / 3717.75 2514.50 / 2514.50 100 / 100 Output Total 1350 / 1650 2450 / 2450 550 / 550 Balance 2217.75 / 2067.75 64.50 / 64.50 -450 / -450 Lab / Micro Data 12/21/23 07:48 12/21/23 07:48 Labs: Laboratory Results - last 24 hr 12/20/23 16:22: POC Glucose 154 H 12/20/23 21:23: POC Glucose 133 H 12/21/23 06:19: POC Glucose 114 H 12/21/23 07:48: WBC 8.6, RBC 3.25 L, Hgb 9.3 L, Hct 29.7 L, MCV 91.4, MCH 28.6, MCHC 31.3 L, RDW Std Deviation 47.7 H, RDW Coeff of Festus 14.2, Plt Count 236, MPV 10.0, Immature Gran % (Auto) 0.700, Neut % (Auto) 75.5 H, Lymph % (Auto) 11.4 L, Lamb % (Auto) 9.3, Eos % (Auto) 2.8, Baso % (Auto) 0.3, Absolute Neuts (auto) 6.5, Absolute Lymphs (auto) 0.98, Nucleated RBC % 0, Sodium 143, Potassium 3.2 L , Chloride 111 H, Carbon Dioxide 25.0, Anion Gap 7, BUN 16, Creatinine 1.49 H, Estim Creat Clear Calc 27.88, Est GFR (MDRD) Af Amer 44 L, Est GFR (MDRD) Non-Af 36 L, BUN/Creatinine Ratio 10.7, Glucose 119 H, Calcium 8.4 L 12/21/23 10:40: POC Glucose 167 H 12/21/23 15:58: POC Glucose 111 H Micro: Microbiology 12/15/23 16:08 Blood Culture (Wb) - Left Hand Blood Culture - Final No growth in 5 days. 12/15/23 16:25 Urine Catheter - Catheter Urine Culture - Final Yeast, not Nabila albicans 12/15/23 23:20 Mucosa - Nasopharyngeal SARS-CoV-2, Influenza & RSV (PCR) - Final Physical Exam Const alert, oriented x3, no apparent distress and average body habitus Constitutional Narrative: Older, white female, lying in bed sleeping but awakens easily to name, appears comfortable, does not appear toxic HEENT head/scalp atraumatic and moist oral mucous membranes HEENT Narrative: Dentition is poor, Mallampati is 2, no thrush Head and Scalp: normocephalic Resp normal respiratory effort, no retractions, no use of accessory muscles and clear to auscultation bilaterally Auscultation: Negative for rales, rhonchi or wheezes Cardio regular rate, regular rhythm, S1 normal heart sound, S2 normal heart sound, no murmurs, no rub, no gallops and no clicks GI normal to inspection, nondistended, normoactive bowel sounds, soft to palpation and non-tender Extremity no clubbing, cyanosis or edema Extremity Narrative: Pedal pulses are 2+ Skin Skin Narrative: PICC line in left upper extremity-clean dry and intact Neuro oriented x3, moves all extremities and no focal motor deficits Neuro Narrative: Significant generalized weakness noted but no focal deficits, proximal musculature more affected than distal Speech: speech normal Psych Psych Narrative: Affect is flat mood seems somewhat depressed Assessment & Plan Assessment/Plan (1) Hypokalemia: (2) Septic shock: (3) Acidosis, lactic: (4) Generalized weakness: (5) Diarrhea: (6) Leukocytosis: PLAN: Plan Multifactorial shock -Suspect septic and hypovolemia related to dehydration -Required Levophed drip for a brief time -Cultures have all been negative however patient with previous E. coli UTI so has can we did as of tomorrow a 7-day course of ceftriaxone -Abdominal imaging was unremarkable for any source related to her shock YAMILEX on CKD stage IIIb -No placed with subsequent rapid return to baseline serum creatinine -Baseline appears to be between 1.2 and 1.5 -Currently 1.44 and seems to be stabilizing -Hydronephrosis noted bilaterally with no obstructive stone noted on imaging -? Stricture -Discussed case with Dr. Ramirez who reviewed the imaging and felt that the patient should be discharged with a No catheter and follow-up with her in the office within the next week -Repeat BMP in a.m. for stability Anion gap metabolic acidosis secondary to lactic acidosis -Initial lactate was 8.3 but trended down quickly -Suspect multifactorial with lactic acidosis and diarrhea -Resolved -Metformin use and YAMILEX may have contributed to her renal dysfunction on presentation Leukocytosis -Resolved Generalized weakness and debility due to acute illness and history of Parkinson's disease -PT/OT following -Patient's strength is slowly coming back however her mobility and ability for self-care is limited at this time -May require placement at discharge -Will review therapy notes tomorrow and discussed case with social services designee -Would need pre-CERT prior to discharge -Patient does have mobility issues at baseline and uses a walker Hypothyroidism -Continue home Synthroid Parkinson's disease -Continue home carbidopa levodopa Mild cognitive impairment -Restart memantine at discharge CAD status post CABG/essential hypertension/hyperlipidemia -Continue home aspirin -Continue home statin -Will continue to hold home metoprolol as blood pressures have still not completely recovered -Continue to monitor for appropriateness of reinitiating DM-2 -Hold home metformin/glipizide -A1c on admission was 6.4 -Will plan to hold metformin at discharge as she is only on 500 mg twice daily and continue glipizide -Continue SSI -Cardiac/carb controlled diet -Accu-Cheks as ordered -Fasting blood sugar was only 119 Overactive bladder -Continue home solifenacin History of TIA -Continue aspirin Depression/anxiety -Continue home risperidone -Continue home Ativan History of tobacco abuse -Remote -No current pulmonary issues -monitor DVT prophylaxis -Continue subcu heparin CODE STATUS -Full code Charges/Coding Visit Charges Inpatient E&M: 74334 Subs Hosp L2
--- NOTE | 2023-12-21 16:38 | NURSING ---
This RN taking over care of pt at this time.
[2023-12-21] MEDS: Potassium Chloride Oral Tablet 20 MEQ 60 MEQ PO (17:50)
[2023-12-21] MEDS: Atorvastatin Calcium 10 MG Tablet PO (22:04)
[2023-12-21 22:35] LABS: Bedside Glucose 113 mg/dL (74-106)
[2023-12-22 02:55] VITALS: BP 132/74; PULSE 82; RESP 16; TEMP 36.7; O2SAT 97
[2023-12-22 04:55] VITALS: BMI 25.9
[2023-12-22] MEDS: Levothyroxine 50 MCG Tablet PO (05:29)
[2023-12-22] MEDS: Acetaminophen 500 MG Tablet 1000 MG PO ×3 (05:29→21:51)
[2023-12-22] MEDS: Carbidopa/Levodopa 25/100 Tablet PO ×3 (05:29→21:51)
[2023-12-22 05:59] LABS: Bedside Glucose 125 mg/dL (74-106)
--- NOTE | 2023-12-22 06:41 | EKG12_ITS ---
Test Reason : PRE OP Blood Pressure : / mmHG Vent. Rate : 080 BPM Atrial Rate : 080 BPM P-R Int : 144 ms QRS Dur : 076 ms QT Int : 400 ms P-R-T Axes : 029 004 -59 degrees QTc Int : 461 ms Normal sinus rhythm with sinus arrhythmia Nonspecific ST and T wave abnormality Abnormal ECG When compared with ECG of 15-DEC-2023 15:41, Questionable change in QRS duration Minimal criteria for Anterior infarct are no longer Present Criteria for Inferior infarct are no longer Present Confirmed by WISAM LEIGH, COLIN ([id number]), image editor SUPRIYA ORDONEZ ([id number]) on 12/22/2023 10:34:31 AM Referred By: LULU Confirmed By:COLIN JOEL MD
[2023-12-22 06:58] LABS: Hematocrit 33.4 % (37-47); Hemoglobin 10.5 g/dL (12.0-15.0); Mean Corp Hgb Conc 31.4 g/dL (32-36); Mean Corpuscular Hgb 28.8 pg (27.0-32.0); Mean Corpuscular Volume 91.8 fL (81-99); Mean Platelet Vol. 10.3 fl (6.2-12.0); Platelet Count 305 K/mm3 (150-450); RBC Distribution Width CV 14.2 % (11.6-14.6); RBC Distribution Width SD 48.3 fl (35.1-43.9); Red Blood Count 3.64 M/mm3 (4.2-5.4); White Blood Count 10.1 K/mm3 (4.4-11.0)
[2023-12-22 07:46] LABS: Anion Gap 9 (5-15); BUN 19 mg/dL (7-18); BUN/Creat Ratio 13.6 RATIO (10-20); Chloride 108 mmol/L (98-107); EST Glomerular Filtration Rate 39 mL/min (>60); Est Glom Filt Rate - Afr Amer 47 mL/min (>60); Estimated Creatinine Clearance 29.57 ml/min; Glucose 110 mg/dL (74-106); Magnesium 1.8 mg/dL (1.6-2.6); Sodium Level 141 mmol/L (136-145)
[2023-12-22 09:00] VITALS: BP 127/59; PULSE 67; RESP 18; TEMP 36.6; O2SAT 97
[2023-12-22] MEDS: Lidocaine 5% Patch 1 PATCH TOPICAL (09:09)
[2023-12-22] MEDS: Heparin Injection (Vial) 5,000 UNIT/ML VIAL 5000 UNIT SC ×2 (09:10→21:51)
[2023-12-22] MEDS: Aspirin E.C. 81 MG Tablet PO (09:11)
[2023-12-22] MEDS: Menthol/Lanolin/Calamine/Znox 113 GM Tube 1 APPLIC TOPICAL ×2 (09:11→21:50)
[2023-12-22] MEDS: Ceftriaxone 1 GM/50 ML BAG IV (09:11)
--- NOTE | 2023-12-22 11:21 | CASEMGMT ---
VENESSA called patient's Jeet and asked about d/c plan. Jeet said he does not know. VENESSA explained patient is ready for discharge so we need to come up with a plan. Jeet asked VENESSA's opinion. VENESSA explained therapy is recommending patient go somewhere short term for rehab. Jeet asked if patient could go to [facility]. VENESSA told Jeet CLIFFORD will make a referral. VENESSA asked for a second choice and Jeet did not know. VENESSA then made a referral to [facility]. Await response. Kayley HE
[2023-12-22 12:07] LABS: Bedside Glucose 138 mg/dL (74-106)
[2023-12-22 15:00] VITALS: BP 113/58; PULSE 98; RESP 18; TEMP 36.8; O2SAT 94
--- NOTE | 2023-12-22 15:16 | PN.HOSP_ITS ---
Reason for Visit Reason for Visit: Diarrhea Subjective Subjective No issues overnight. Patient states she is feeling okay. I did discuss with her that from a medical standpoint she is okay to discharge home however we do have concerns with regards to sending her home and question whether or not she would be okay with rehab after discharge. She was unsure and unable to give me an answer and suggest we talk to her . Case management/social work did talk to her and he was okay with making referrals to these referrals have been made. She will need pre-CERT prior to discharge. Antibiotics have been completed and her labs are stable. Objective Data Objective Data Vital Signs: Vital Signs Temp Pulse Resp BP Pulse Ox O2 Del Method 97.8 F 67 18 127/59 H 97 Room Air 12/22/23 09:00 12/22/23 09:00 12/22/23 09:00 12/22/23 09:00 12/22/23 09:00 12/22/23 14:00 Oxygen Delivery Method Room Air Weight: 64 kg Body Mass Index (BMI) 25.9 Intake & Output: Intake and Output for Last 24 Hours 12/20/23 12/21/23 12/22/23 23:59 23:59 23:59 Intake Total 2514.50 / 2514.50 300 / 300 290 / 290 Output Total 2450 / 2450 850 / 1050 1300 / 1300 Balance 64.50 / 64.50 -550 / -750 -1010 / -1010 Lab / Micro Data 12/22/23 05:39 12/22/23 05:39 Labs: Laboratory Results - last 24 hr 12/21/23 15:58: POC Glucose 111 H 12/21/23 22:01: POC Glucose 113 H 12/22/23 05:32: POC Glucose 125 H 12/22/23 05:39: WBC 10.1, RBC 3.64 L, Hgb 10.5 L, Hct 33.4 L, MCV 91.8, MCH 28.8, MCHC 31.4 L, RDW Std Deviation 48.3 H, RDW Coeff of Festus 14.2, Plt Count 305, MPV 10.3, Sodium 141, Potassium 4.0, Chloride 108 H, Carbon Dioxide 24.0, Anion Gap 9, BUN 19 H, Creatinine 1.40 H, Estim Creat Clear Calc 29.57, Est GFR (MDRD) Af Amer 47 L, Est GFR (MDRD) Non-Af 39 L, BUN/Creatinine Ratio 13.6, G lucose 110 H, Calcium 9.0, Magnesium 1.8 12/22/23 11:39: POC Glucose 138 H Micro: Microbiology 12/15/23 16:08 Blood Culture (Wb) - Left Hand Blood Culture - Final No growth in 5 days. 12/15/23 16:25 Urine Catheter - Catheter Urine Culture - Final Yeast, not Nabila albicans 12/15/23 23:20 Mucosa - Nasopharyngeal SARS-CoV-2, Influenza & RSV (PCR) - Final Physical Exam Const alert, oriented x3, no apparent distress and average body habitus Constitutional Narrative: Older, white female, lying in bed sleeping but awakens easily to name, appears comfortable, does not appear toxic HEENT head/scalp atraumatic and moist oral mucous membranes HEENT Narrative: Dentition is poor, Mallampati is 2, no thrush Head and Scalp: normocephalic Resp normal respiratory effort, no retractions, no use of accessory muscles and clear to auscultation bilaterally Auscultation: Negative for rales, rhonchi or wheezes Cardio regular rate, regular rhythm, S1 normal heart sound, S2 normal heart sound, no murmurs, no rub, no gallops and no clicks GI normal to inspection, nondistended, normoactive bowel sounds, soft to palpation and non-tender Extremity no clubbing, cyanosis or edema Extremity Narrative: Pedal pulses are 2+ Neuro oriented x3, moves all extremities and no focal motor deficits Neuro Narrative: Significant generalized weakness noted but no focal deficits, proximal musculature more affected than distal Speech: speech normal Psych Psych Narrative: Affect is flat mood seems somewhat depressed Assessment & Plan Assessment/Plan (1) Hypokalemia: (2) Septic shock: (3) Acidosis, lactic: (4) Generalized weakness: (5) Diarrhea: (6) Leukocytosis: PLAN: Plan Multifactorial shock -Suspect septic and hypovolemia related to dehydration -Required Levophed drip for a brief time -7-day course of ceftriaxone has been completed -Abdominal imaging was unremarkable for any source related to her shock YAMILEX on CKD stage IIIb -YAMILEX has resolved -No placed with subsequent rapid return to baseline serum creatinine -Baseline appears to be between 1.2 and 1.5 -Currently 1.40 and has stabilized -Hydronephrosis noted bilaterally with no obstructive stone noted on imaging -? Stricture -Discussed case with Dr. Ramirez who reviewed the imaging and felt that the patient should be discharged with a No catheter and follow-up with her in the office within the next week -Repeat BMP in a.m. for stability Anion gap metabolic acidosis secondary to lactic acidosis -Resolved Generalized weakness and debility due to acute illness and history of Parkinson's disease -PT/OT following -Patient's strength is slowly coming back however her mobility and ability for self-care is limited at this time -Will require and is excepting a placement at discharge -Referrals have been made and will need pre-CERT Hypothyroidism -Continue home Synthroid Parkinson's disease -Continue home carbidopa levodopa Mild cognitive impairment -Restart memantine at discharge CAD status post CABG/essential hypertension/hyperlipidemia -Continue home aspirin -Continue home statin -Will continue to hold home metoprolol as blood pressures have still not completely recovered -Blood pressures are better today and if remains stable as they are currently will restart metoprolol tomorrow DM-2 -Hold home metformin/glipizide -A1c on admission was 6.4 -Will plan to hold metformin at discharge as she is only on 500 mg twice daily and continue glipizide -Continue SSI -Cardiac/carb controlled diet -Accu-Cheks as ordered -Fasting blood sugar was only 110 Overactive bladder -Continue home solifenacin History of TIA -Continue aspirin Depression/anxiety -Continue home risperidone -Continue home Ativan History of tobacco abuse -Remote -No current pulmonary issues -monitor DVT prophylaxis -Continue subcu heparin CODE STATUS -Full code Charges/Coding Visit Charges Inpatient E&M: 77102 Subs Hosp L2
--- NOTE | 2023-12-22 15:17 | CASEMGMT ---
[facility] is unable to take patient as they do not have any beds currently. SW called patient's and spoke at length helping him decide which SNF to choose. SW told him the 3 closest facilities to where they live which were, [facility], [place], and [facility]. His first choice was [facility]. SW asked Shirley to please send a referral to [facility]. Kayley HE
--- NOTE | 2023-12-22 15:43 | CASEMGMT ---
Addendum entered by Shirley Perry 12/23/23 13:57: [facility] has accepted and will start precert. Shirley Perry DC Planning Asst. Original Note: Discharge Planning Referral sent to [facility] via [employer]. Shirley Perry DC Planning Asst.
[2023-12-22] MEDS: Insulin Lispro 100 UNIT/ML INSULN.PEN SC ×2 (16:28→21:50)
[2023-12-22 16:50] LABS: Bedside Glucose 194 mg/dL (74-106)
[2023-12-22 21:46] VITALS: BP 122/62; PULSE 89; RESP 16; TEMP 36.8; O2SAT 96
[2023-12-22] MEDS: Atorvastatin Calcium 10 MG Tablet PO (21:52)
[2023-12-22] MEDS: 0.9% Saline Lock 10 ML Syringe IV (21:53)
[2023-12-22 22:48] LABS: Bedside Glucose 183 mg/dL (74-106)
[2023-12-23 03:40] VITALS: BMI 25.7
[2023-12-23 04:50] VITALS: BP 130/63; PULSE 79; RESP 17; TEMP 36.6; O2SAT 99
[2023-12-23] MEDS: Carbidopa/Levodopa 25/100 Tablet PO ×3 (05:42→21:54)
[2023-12-23] MEDS: Acetaminophen 500 MG Tablet 1000 MG PO ×3 (05:43→21:53)
[2023-12-23] MEDS: Senna/Docusate Sodium 1 Tablet 2 TABLET PO (05:43)
[2023-12-23] MEDS: Levothyroxine 50 MCG Tablet PO (05:44)
[2023-12-23 06:17] LABS: Bedside Glucose 137 mg/dL (74-106)
[2023-12-23 10:50] VITALS: BP 115/65; PULSE 82; RESP 18; TEMP 36.4; O2SAT 96
[2023-12-23] MEDS: Menthol/Lanolin/Calamine/Znox 113 GM Tube 1 APPLIC TOPICAL ×2 (10:55→21:51)
[2023-12-23] MEDS: Heparin Injection (Vial) 5,000 UNIT/ML VIAL 5000 UNIT SC ×2 (10:56→21:47)
[2023-12-23] MEDS: Aspirin E.C. 81 MG Tablet PO (10:56)
[2023-12-23] MEDS: Lidocaine 5% Patch 1 PATCH TOPICAL (10:57)
[2023-12-23] MEDS: Insulin Lispro 100 UNIT/ML INSULN.PEN SC ×3 (11:11→21:46)
[2023-12-23 11:34] LABS: Bedside Glucose 208 mg/dL (74-106)
--- NOTE | 2023-12-23 14:36 | CASEMGMT ---
VENESSA called patient's and let him know that [facility] accepted patient. VENESSA let him know that once insurance approves patient arrangements will be made to get patient to the [facility]. Patient's thanked VENESSA for the update. Plan: d/c to [facility] under skilled level of care pending insurance approval. Kayley HE
--- NOTE | 2023-12-23 14:40 | CASEMGMT ---
VENESSA called patient's and let him know that [facility] accepted patient. VENESSA let him know that once insurance approves patient arrangements will be made to get patient to the [facility]. Patient's thanked VENESSA for the update. Plan: d/c to [facility] under skilled level of care pending insurance approval. Kayley HE
[2023-12-23 15:15] VITALS: BP 105/65; PULSE 76; RESP 18; TEMP 36.7; O2SAT 98
--- NOTE | 2023-12-23 15:23 | PCM.PN.HOSP ---
Reason for Visit Reason for Visit: Diarrhea Subjective Subjective Patient denies any current issues. No pain. Will have right upper extremity PICC line removed. Plan is for assisted facility but awaiting acceptance at facility and then patient will need pre-CERT. Patient is aware per discussion today. No will stay in and discharged with follow-up at urology. Objective Data Objective Data Vital Signs: Vital Signs Temp Pulse Resp BP Pulse Ox O2 Del Method 98.1 F 76 18 105/65 98 Room Air 12/23/23 15:15 12/23/23 15:15 12/23/23 15:15 12/23/23 15:15 12/23/23 15:15 12/23/23 15:19 Oxygen Delivery Method Room Air Weight: 63.7 kg Body Mass Index (BMI) 25.7 Intake & Output: Intake and Output for Last 24 Hours 12/21/23 12/22/23 12/23/23 23:59 23:59 23:59 Intake Total 300 / 300 410 / 410 440 / 440 Output Total 850 / 1050 1600 / 1900 775 / 775 Balance -550 / -750 -1190 / -1490 -335 / -335 Lab / Micro Data 12/22/23 05:39 12/22/23 05:39 Labs: Laboratory Results - last 24 hr 12/22/23 16:27: POC Glucose 194 H 12/22/23 21:48: POC Glucose 183 H 12/23/23 05:41: POC Glucose 137 H 12/23/23 11:10: POC Glucose 208 H Micro: Microbiology 12/15/23 16:08 Blood Culture (Wb) - Left Hand Blood Culture - Final No growth in 5 days. 12/15/23 16:25 Urine Catheter - Catheter Urine Culture - Final Yeast, not Nabila albicans 12/15/23 23:20 Mucosa - Nasopharyngeal SARS-CoV-2, Influenza & RSV (PCR) - Final Physical Exam Const alert, oriented x3, no apparent distress and average body habitus Constitutional Narrative: Older, white female, sitting up in bed watching television, nursing at bedside, appears comfortable, does not appear toxic HEENT head/scalp atraumatic and moist oral mucous membranes Head and Scalp: normocephalic Extremity no clubbing, cyanosis or edema Extremity Narrative: Right upper extremity PICC line in place-dressing is clean dry and intact Neuro oriented x3, moves all extremities and no focal motor deficits Neuro Narrative: Significant generalized weakness noted but no focal deficits, proximal musculature more affected than distal Speech: speech normal Psych Psych Narrative: Affect remains slightly flat however more interactive today than she has been Assessment & Plan Assessment/Plan (1) Hypokalemia: (2) Septic shock: (3) Acidosis, lactic: (4) Generalized weakness: (5) Diarrhea: (6) Leukocytosis: PLAN: Plan Multifactorial shock -Suspect septic and hypovolemia related to dehydration -Resolved and antibiotics are completed CKD stage IIIb -No placed with subsequent rapid return to baseline serum creatinine -Baseline appears to be between 1.2 and 1.5 -Currently 1.40 and has stabilized -Hydronephrosis noted bilaterally with no obstructive stone noted on imaging -? Stricture -Discussed case with Dr. Ramirez who reviewed the imaging and felt that the patient should be discharged with a No catheter and follow-up with her in the office within the next week Generalized weakness and debility due to acute illness and history of Parkinson's disease -PT/OT following -Patient's strength is slowly coming back however her mobility and ability for self-care is limited at this time -Patient has been accepted at assisted facility and currently awaiting pre-CERT Hypothyroidism -Continue home Synthroid Parkinson's disease -Continue home carbidopa levodopa Mild cognitive impairment -Restart memantine at discharge CAD status post CABG/essential hypertension/hyperlipidemia -Continue home aspirin -Continue home statin -Will restart home metoprolol but at 12.5 rather than 25 twice daily and monitor blood pressure DM-2 -Restart home oral agents -A1c on admission was 6.4 -Will plan to hold metformin at discharge as she is only on 500 mg twice daily and continue glipizide -Continue SSI -Cardiac/carb controlled diet -Accu-Cheks as ordered -Fasting blood sugar was only 137 Overactive bladder -Continue home solifenacin History of TIA -Continue aspirin Depression/anxiety -Continue home risperidone -Continue home Ativan History of tobacco abuse -Remote -No current pulmonary issues -monitor DVT prophylaxis -Continue subcu heparin CODE STATUS -Full code Charges/Coding Visit Charges Inpatient E&M: 53612 Subs Hosp L2
[2023-12-23] MEDS: metFORMIN HCl 500 MG Tablet PO (16:37)
[2023-12-23 16:56] LABS: Bedside Glucose 212 mg/dL (74-106)
[2023-12-23 21:43] VITALS: BP 116/63; PULSE 81; RESP 16; TEMP 36.7; O2SAT 97
[2023-12-23 21:53] VITALS: BP 116/63; PULSE 81
[2023-12-23] MEDS: LORazepam 0.5 MG Tablet PO (21:53)
[2023-12-23] MEDS: Metoprolol Tartrate 25 MG Tablet 12.5 MG PO (21:53)
[2023-12-23] MEDS: Atorvastatin Calcium 10 MG Tablet PO (21:54)
[2023-12-23] MEDS: RisperiDONE 0.5 MG Tablet PO (21:54)
[2023-12-24 00:03] LABS: Bedside Glucose 179 mg/dL (74-106)
[2023-12-24 03:15] VITALS: BP 109/55; PULSE 71; RESP 16; TEMP 36.4; O2SAT 96
[2023-12-24 03:41] VITALS: BMI 25.4
[2023-12-24] MEDS: Carbidopa/Levodopa 25/100 Tablet PO ×3 (06:26→21:43)
[2023-12-24] MEDS: Levothyroxine 50 MCG Tablet PO (06:26)
[2023-12-24] MEDS: Acetaminophen 500 MG Tablet 1000 MG PO ×3 (06:26→21:43)
[2023-12-24 06:49] LABS: Bedside Glucose 120 mg/dL (74-106)
[2023-12-24 07:21] LABS: Hematocrit 31.9 % (37-47); Hemoglobin 9.8 g/dL (12.0-15.0); Mean Corp Hgb Conc 30.7 g/dL (32-36); Mean Corpuscular Hgb 28.2 pg (27.0-32.0); Mean Corpuscular Volume 91.7 fL (81-99); Platelet Count 323 K/mm3 (150-450); RBC Distribution Width CV 14.4 % (11.6-14.6); RBC Distribution Width SD 48.8 fl (35.1-43.9); Red Blood Count 3.48 M/mm3 (4.2-5.4)
[2023-12-24 07:57] LABS: Anion Gap 6 (5-15); BUN 26 mg/dL (7-18); BUN/Creat Ratio 16.9 RATIO (10-20); Calcium,Total 8.6 mg/dL (8.5-10.1); Chloride 107 mmol/L (98-107); Creatinine, Serum 1.54 mg/dL (0.55-1.02); EST Glomerular Filtration Rate 35 mL/min (>60); Est Glom Filt Rate - Afr Amer 42 mL/min (>60); Estimated Creatinine Clearance 26.69 ml/min; Glucose 132 mg/dL (74-106); Potassium 3.8 mmol/L (3.5-5.1); Sodium Level 139 mmol/L (136-145)
[2023-12-24 09:00] VITALS: BP 95/59; PULSE 79; RESP 18; TEMP 36.6; O2SAT 97
[2023-12-24] MEDS: Heparin Injection (Vial) 5,000 UNIT/ML VIAL 5000 UNIT SC ×2 (09:34→21:42)
[2023-12-24] MEDS: glipiZIDE 2.5 MG TAB.ER.24 PO (09:35)
[2023-12-24] MEDS: Aspirin E.C. 81 MG Tablet PO (09:35)
[2023-12-24] MEDS: Menthol/Lanolin/Calamine/Znox 113 GM Tube 1 APPLIC TOPICAL ×2 (09:35→21:41)
[2023-12-24] MEDS: RisperiDONE 0.5 MG Tablet PO ×2 (09:35→21:43)
[2023-12-24] MEDS: metFORMIN HCl 500 MG Tablet PO ×2 (09:35→17:30)
[2023-12-24] MEDS: Lidocaine 5% Patch 1 PATCH TOPICAL (09:36)
[2023-12-24 10:26] VITALS: BP 95/59; PULSE 79
[2023-12-24] MEDS: Insulin Lispro 100 UNIT/ML INSULN.PEN SC (11:21)
[2023-12-24 11:54] LABS: Bedside Glucose 184 mg/dL (74-106)
[2023-12-24 15:00] VITALS: BP 115/64; PULSE 98; RESP 18; TEMP 36.3; O2SAT 99
--- NOTE | 2023-12-24 17:06 | PN.HOSP_ITS ---
Reason for Visit Reason for Visit: Diarrhea Subjective Subjective No issues overnight. Patient has no complaints. I did discuss with her that she was accepted by nursing facility and pre-CERT is pending. She voiced understanding and had no questions. Objective Data Objective Data Vital Signs: Vital Signs Temp Pulse Resp BP Pulse Ox O2 Del Method 97.3 F L 98 18 115/64 99 Room Air 12/24/23 15:00 12/24/23 15:00 12/24/23 15:00 12/24/23 15:00 12/24/23 15:00 12/24/23 15:00 Oxygen Delivery Method Room Air Weight: 63 kg Body Mass Index (BMI) 25.4 Intake & Output: Intake and Output for Last 24 Hours 12/22/23 12/23/23 12/24/23 23:59 23:59 23:59 Intake Total 410 / 410 800 / 800 240 / 240 Output Total 1600 / 1900 1275 / 1525 950 / 950 Balance -1190 / -1490 -475 / -725 -710 / -710 Lab / Micro Data 12/24/23 06:26 12/24/23 06:26 Labs: Laboratory Results - last 24 hr 12/23/23 21:42: POC Glucose 179 H 12/24/23 06:25: POC Glucose 120 H 12/24/23 06:26: WBC 11.0, RBC 3.48 L, Hgb 9.8 L, Hct 31.9 L, MCV 91.7, MCH 28.2, MCHC 30.7 L, RDW Std Deviation 48.8 H, RDW Coeff of Festus 14.4, Plt Count 323, MPV 10.0, Sodium 139, Potassium 3.8, Chloride 107, Carbon Dioxide 26.0, Anion Gap 6, BUN 26 H, Creatinine 1.54 H, Estim Creat Clear Calc 26.69, Est GFR (MDRD) Af Amer 42 L, Est GFR (MDRD) Non-Af 35 L, BUN/Creatinine Ratio 16.9, Glucose 132 H, Calcium 8.6 12/24/23 11:19: POC Glucose 184 H Micro: Microbiology 12/15/23 16:08 Blood Culture (Wb) - Left Hand Blood Culture - Final No growth in 5 days. 12/15/23 16:25 Urine Catheter - Catheter Urine Culture - Final Yeast, not Nabila albicans 12/15/23 23:20 Mucosa - Nasopharyngeal SARS-CoV-2, Influenza & RSV (PCR) - Final Physical Exam Const alert, oriented x3, no apparent distress and average body habitus Constitutional Narrative: Older, white female, sitting up in bed watching television, nursing at bedside, appears comfortable, does not appear toxic HEENT head/scalp atraumatic and moist oral mucous membranes Head and Scalp: normocephalic Skin Skin Narrative: PICC line in left upper extremity-clean dry and intact Neuro oriented x3 and moves all extremities Speech: speech normal Assessment & Plan Assessment/Plan (1) Hypokalemia: (2) Septic shock: (3) Acidosis, lactic: (4) Generalized weakness: (5) Diarrhea: (6) Leukocytosis: PLAN: Plan Multifactorial shock -Suspect septic and hypovolemia related to dehydration -Resolved and antibiotics are completed CKD stage IIIb -No placed with subsequent rapid return to baseline serum creatinine -Baseline appears to be between 1.2 and 1.5 -Creatinine remained stable -Hydronephrosis noted bilaterally with no obstructive stone noted on imaging -? Stricture -Discussed case with Dr. Ramirez who reviewed the imaging and felt that the patient should be discharged with a No catheter and follow-up with her in the office within the next week Generalized weakness and debility due to acute illness and history of Parkinson's disease -PT/OT following -Patient's strength is slowly coming back however her mobility and ability for self-care is limited at this time -[facility] and currently awaiting pre-CERT Hypothyroidism -Continue home Synthroid Parkinson's disease -Continue home carbidopa levodopa Mild cognitive impairment -Restart memantine at discharge CAD status post CABG/essential hypertension/hyperlipidemia -Continue home aspirin -Continue home statin -Will restart home metoprolol but at 12.5 rather than 25 twice daily and monitor blood pressure DM-2 -Restart home oral agents -A1c on admission was 6.4 -Will plan to hold metformin at discharge as she is only on 500 mg twice daily and continue glipizide -Continue SSI -Cardiac/carb controlled diet -Accu-Cheks as ordered -Fasting blood sugar was only 137 Overactive bladder -Continue home solifenacin History of TIA -Continue aspirin Depression/anxiety -Continue home risperidone -Continue home Ativan History of tobacco abuse -Remote -No current pulmonary issues -monitor DVT prophylaxis -Continue subcu heparin CODE STATUS -Full code Patient has been medically stable for discharge since 12/21/2023 and is awaiting pre-CERT now from the insurance company. Charges/Coding Visit Charges Inpatient E&M: 05925 Subs Hosp L1
[2023-12-24 17:59] LABS: Bedside Glucose 88 mg/dL (74-106)
[2023-12-24 21:29] VITALS: BP 116/64; PULSE 77; RESP 16; TEMP 36.4; O2SAT 98
[2023-12-24] MEDS: LORazepam 0.5 MG Tablet PO (21:41)
[2023-12-24] MEDS: Atorvastatin Calcium 10 MG Tablet PO (21:42)
[2023-12-24 22:13] LABS: Bedside Glucose 106 mg/dL (74-106)
[2023-12-25 03:15] VITALS: BP 114/61; PULSE 90; RESP 16; TEMP 36.3; O2SAT 99
[2023-12-25 04:31] VITALS: BMI 24.5
[2023-12-25] MEDS: Carbidopa/Levodopa 25/100 Tablet PO ×3 (06:19→21:35)
[2023-12-25] MEDS: Acetaminophen 500 MG Tablet 1000 MG PO ×3 (06:20→21:35)
[2023-12-25] MEDS: Levothyroxine 50 MCG Tablet PO (06:20)
[2023-12-25 07:07] LABS: Bedside Glucose 129 mg/dL (74-106)
[2023-12-25 09:15] VITALS: BP 108/58; PULSE 83; RESP 18; TEMP 36.7; O2SAT 97
[2023-12-25] MEDS: RisperiDONE 0.5 MG Tablet PO ×2 (10:05→21:35)
[2023-12-25] MEDS: Lidocaine 5% Patch 1 PATCH TOPICAL (10:05)
[2023-12-25] MEDS: Aspirin E.C. 81 MG Tablet PO (10:05)
[2023-12-25] MEDS: Heparin Injection (Vial) 5,000 UNIT/ML VIAL 5000 UNIT SC ×2 (10:05→21:34)
[2023-12-25] MEDS: glipiZIDE 2.5 MG TAB.ER.24 PO (10:06)
[2023-12-25] MEDS: Menthol/Lanolin/Calamine/Znox 113 GM Tube 1 APPLIC TOPICAL ×2 (10:06→21:34)
[2023-12-25] MEDS: metFORMIN HCl 500 MG Tablet PO ×2 (10:06→16:36)
[2023-12-25] MEDS: Insulin Lispro 100 UNIT/ML INSULN.PEN SC (11:39)
[2023-12-25 12:00] LABS: Bedside Glucose 195 mg/dL (74-106)
[2023-12-25 15:15] VITALS: BP 110/52; PULSE 88; RESP 18; TEMP 36.6; O2SAT 96
--- NOTE | 2023-12-25 16:14 | CASEMGMT ---
Discharge Planning Spoke with Josie @ [facility] to check on status of precert. They have not rec'd back nor has additional information been requested. Josie stated that if not rec'd by 4:30 today, that patient would be here until Thursday. SW updated. Shirley Perry DC Planning Asst.
--- NOTE | 2023-12-25 16:36 | PCM.PN.HOSP ---
Reason for Visit Reason for Visit: Diarrhea Subjective Subjective Patient states she is feeling well. Up to a chair and go a bath and feels much better. She was able to walk about 10 feet with a walker. Still awaiting pre-CERT. Objective Data Objective Data Vital Signs: Vital Signs Temp Pulse Resp BP Pulse Ox O2 Del Method 98.1 F 83 18 108/58 L 97 Room Air 12/25/23 09:15 12/25/23 09:15 12/25/23 09:15 12/25/23 09:15 12/25/23 09:15 12/25/23 14:39 Oxygen Delivery Method Room Air Weight: 60.7 kg Body Mass Index (BMI) 24.5 Intake & Output: Intake and Output for Last 24 Hours 12/23/23 12/24/23 12/25/23 23:59 23:59 23:59 Intake Total 800 / 800 600 / 850 740 / 740 Output Total 1275 / 1525 1275 / 2175 1550 / 1550 Balance -475 / -725 -675 / -1325 -810 / -810 Lab / Micro Data 12/24/23 06:26 12/24/23 06:26 Labs: Laboratory Results - last 24 hr 12/24/23 17:28: POC Glucose 88 12/24/23 21:45: POC Glucose 106 12/25/23 06:18: POC Glucose 129 H 12/25/23 11:37: POC Glucose 195 H Micro: Microbiology 12/15/23 16:08 Blood Culture (Wb) - Left Hand Blood Culture - Final No growth in 5 days. 12/15/23 16:25 Urine Catheter - Catheter Urine Culture - Final Yeast, not Nabila albicans 12/15/23 23:20 Mucosa - Nasopharyngeal SARS-CoV-2, Influenza & RSV (PCR) - Final Physical Exam Const alert, oriented x3, no apparent distress and average body habitus Constitutional Narrative: Older, white female, sitting up in chair, nursing at bedside, appears comfortable, does not appear toxic HEENT head/scalp atraumatic and moist oral mucous membranes HEENT Narrative: poor dentition Head and Scalp: normocephalic Neuro oriented x3, moves all extremities and no focal motor deficits Psych Psych Narrative: Affect is much brighter today Assessment & Plan Assessment/Plan (1) Hypokalemia: (2) Septic shock: (3) Acidosis, lactic: (4) Generalized weakness: (5) Diarrhea: (6) Leukocytosis: PLAN: Plan Multifactorial shock -Suspect septic and hypovolemia related to dehydration -Resolved and antibiotics are completed CKD stage IIIb -No placed with subsequent rapid return to baseline serum creatinine -Baseline appears to be between 1.2 and 1.5 -Hydronephrosis noted bilaterally with no obstructive stone noted on imaging -? Stricture -Discussed case with Dr. Ramirez who reviewed the imaging and felt that the patient should be discharged with a No catheter and follow-up with her in the office within the next week Generalized weakness and debility due to acute illness and history of Parkinson's disease -PT/OT following -Patient's strength is slowly coming back however her mobility and ability for self-care is limited at this time -Patient has been accepted at shelter facility and currently awaiting pre-CERT Hypothyroidism -Continue home Synthroid Parkinson's disease -Continue home carbidopa levodopa Mild cognitive impairment -Restart memantine at discharge CAD status post CABG/essential hypertension/hyperlipidemia -Continue home aspirin -Continue home statin -Will restart home metoprolol but at 12.5 rather than 25 twice daily and monitor blood pressure DM-2 -Restart home oral agents -A1c on admission was 6.4 -Will plan to hold metformin at discharge as she is only on 500 mg twice daily and continue glipizide -Continue SSI -Cardiac/carb controlled diet -Accu-Cheks as ordered -Fasting blood sugar was only 137 Overactive bladder -Continue home solifenacin History of TIA -Continue aspirin Depression/anxiety -Continue home risperidone -Continue home Ativan History of tobacco abuse -Remote -No current pulmonary issues -monitor DVT prophylaxis -Continue subcu heparin CODE STATUS -Full code Patient has been medically stable for discharge since 12/21/2023 and is awaiting pre-CERT now from the insurance company. Charges/Coding Visit Charges Inpatient E&M: 36009 Subs Hosp L1
[2023-12-25 17:22] LABS: Bedside Glucose 135 mg/dL (74-106)
[2023-12-25 21:00] VITALS: BP 104/66; PULSE 83; RESP 16; TEMP 36.3; O2SAT 97
[2023-12-25 21:15] VITALS: BP 104/66; PULSE 85; RESP 16; TEMP 36.3; O2SAT 98
[2023-12-25] MEDS: LORazepam 0.5 MG Tablet PO (21:34)
[2023-12-25] MEDS: Atorvastatin Calcium 10 MG Tablet PO (21:35)
[2023-12-25 23:57] LABS: Bedside Glucose 142 mg/dL (74-106)
[2023-12-26 03:11] VITALS: BP 115/68; PULSE 87; RESP 16; TEMP 36.1; O2SAT 99
[2023-12-26 05:10] VITALS: BMI 24.8
[2023-12-26] MEDS: Carbidopa/Levodopa 25/100 Tablet PO ×2 (06:13→21:07)
[2023-12-26] MEDS: Levothyroxine 50 MCG Tablet PO (06:13)
[2023-12-26] MEDS: Acetaminophen 500 MG Tablet 1000 MG PO ×2 (06:14→21:07)
[2023-12-26 06:57] LABS: Bedside Glucose 94 mg/dL (74-106)
[2023-12-26 09:37] VITALS: BP 115/72; PULSE 86; RESP 18; TEMP 36.4; O2SAT 98
[2023-12-26] MEDS: Lidocaine 5% Patch 1 PATCH TOPICAL (09:40)
[2023-12-26] MEDS: Aspirin E.C. 81 MG Tablet PO (09:40)
[2023-12-26] MEDS: metFORMIN HCl 500 MG Tablet PO (09:40)
[2023-12-26] MEDS: Menthol/Lanolin/Calamine/Znox 113 GM Tube 1 APPLIC TOPICAL ×2 (09:40→21:11)
[2023-12-26] MEDS: RisperiDONE 0.5 MG Tablet PO ×2 (09:40→21:06)
[2023-12-26] MEDS: Heparin Injection (Vial) 5,000 UNIT/ML VIAL 5000 UNIT SC ×2 (09:41→21:07)
[2023-12-26] MEDS: glipiZIDE 2.5 MG TAB.ER.24 PO (09:41)
[2023-12-26 11:55] LABS: Bedside Glucose 124 mg/dL (74-106)
--- NOTE | 2023-12-26 14:08 | PN.HOSP_ITS ---
Reason for Visit Reason for Visit: Diarrhea Subjective Subjective Patient sleeping soundly this morning. No issues reported overnight. Awaiting pre-CERT. Objective Data Objective Data Vital Signs: Vital Signs Temp Pulse Resp BP Pulse Ox O2 Del Method 97.6 F L 86 18 115/72 98 Room Air 12/26/23 09:37 12/26/23 09:37 12/26/23 09:37 12/26/23 09:37 12/26/23 09:37 12/26/23 13:08 Oxygen Delivery Method Room Air Weight: 61.6 kg Body Mass Index (BMI) 24.8 Intake & Output: Intake and Output for Last 24 Hours 12/24/23 12/25/23 12/26/23 23:59 23:59 23:59 Intake Total 600 / 850 980 / 1480 750 / 750 Output Total 1275 / 2175 1900 / 2525 925 / 925 Balance -675 / -1325 -920 / -1045 -175 / -175 Lab / Micro Data 12/24/23 06:26 12/24/23 06:26 Labs: Laboratory Results - last 24 hr 12/25/23 16:34: POC Glucose 135 H 12/25/23 21:29: POC Glucose 142 H 12/26/23 06:11: POC Glucose 94 12/26/23 11:29: POC Glucose 124 H Micro: Microbiology 12/15/23 16:08 Blood Culture (Wb) - Left Hand Blood Culture - Final No growth in 5 days. 12/15/23 16:25 Urine Catheter - Catheter Urine Culture - Final Yeast, not Nabila albicans 12/15/23 23:20 Mucosa - Nasopharyngeal SARS-CoV-2, Influenza & RSV (PCR) - Final Physical Exam Const no apparent distress, average body habitus and well nourished; Negative for healthy appearing Constitutional Narrative: Older, white female, lying in bed sleeping, appears older than stated age, does not appear toxic and appears comfortable HEENT head/scalp atraumatic Head and Scalp: normocephalic Cardio regular rate, regular rhythm, S1 normal heart sound, S2 normal heart sound, no murmurs, no rub, no gallops and no clicks GI normal to inspection, nondistended, normoactive bowel sounds, soft to palpation and non-tender Psych Psych Narrative: Patient sleeping soundly Assessment & Plan Assessment/Plan (1) Hypokalemia: (2) Septic shock: (3) Acidosis, lactic: PLAN: Plan Multifactorial shock -Suspect septic and hypovolemia related to dehydration -Resolved and antibiotics are completed CKD stage IIIb -No placed with subsequent rapid return to baseline serum creatinine -Baseline appears to be between 1.2 and 1.5 -Hydronephrosis noted bilaterally with no obstructive stone noted on imaging -? Stricture -Discussed case with Dr. Ramirez who reviewed the imaging and felt that the patient should be discharged with a No catheter and follow-up with her in the office within the next week Generalized weakness and debility due to acute illness and history of Parkinson's disease -PT/OT following -Patient's strength is slowly coming back however her mobility and ability for self-care is limited at this time -Patient has been accepted at assisted facility and currently awaiting pre-CERT Hypothyroidism -Continue home Synthroid Parkinson's disease -Continue home carbidopa levodopa Mild cognitive impairment -Restart memantine at discharge CAD status post CABG/essential hypertension/hyperlipidemia -Continue home aspirin -Continue home statin -Blood pressure is good off of her antihypertensive so we will continue to hold DM-2 -Restart home oral agents -A1c on admission was 6.4 -Will plan to hold metformin at discharge as she is only on 500 mg twice daily and continue glipizide -Continue SSI -Cardiac/carb controlled diet -Accu-Cheks as ordered -Fasting blood sugar was only 137 Overactive bladder -Continue home solifenacin History of TIA -Continue aspirin Depression/anxiety -Continue home risperidone -Continue home Ativan History of tobacco abuse -Remote -No current pulmonary issues -monitor DVT prophylaxis -Continue subcu heparin CODE STATUS -Full code Patient has been medically stable for discharge since 12/21/2023 and is awaiting pre-CERT now from the insurance company. Doubt anticipate discharge will occur until early next week Charges/Coding Visit Charges Inpatient E&M: 48363 [facility] Hosp L1
[2023-12-26 15:07] VITALS: BP 104/65; PULSE 80; RESP 18; TEMP 36.1; O2SAT 98
[2023-12-26 16:51] LABS: Bedside Glucose 100 mg/dL (74-106)
--- NOTE | 2023-12-26 17:08 | CT_ITS ---
STUDY: CT BRAIN WITHOUT CONTRAST REASON FOR EXAM: Female, 78 years old. AMS RADIATION DOSAGE (If Supplied By Facility): CTDIvol = ( 44.99 ) mGy, DLP = ( 796.11 ) mGycm TECHNIQUE: Transaxial CT imaging of the brain was performed without administration of intravenous contrast material. Individualized dose optimization techniques were used for this CT. COMPARISON: 12/21/2022 FINDINGS: Normal soft tissue structures. Normal calvarium. There is moderate cerebral atrophy with widening of the extra-axial spaces and ventricular dilatation. There are areas of decreased attenuation within the white matter tracts of the supratentorial brain, consistent with microvascular disease changes. Normal basal ganglia and thalami. Normal brainstem. Normal cerebellum. There is no intracranial hemorrhage. There are no findings of an acute ischemic infarction. Normal visualized paranasal sinuses. CT/Brain/Head without Contrast IMPRESSION: Chronic involutional changes of the brain. Electronically Signed: Jesus Velasquez MD at 17:53 EDT ,
[2023-12-26 18:20] LABS: Absolute Lymphocyte Count 1.49 X10^3/uL (0.83-4.51); Absolute Neutrophil Count 9.1 X10^3/uL (2.0-7.7); Basophil# 0.06 X10^3/uL; Basophil% 0.5 % (0-1); Eosinophil# 0.38 X10^3/uL; Eosinophils% 3.2 % (0-5); Hematocrit 35.4 % (37-47); Hemoglobin 10.9 g/dL (12.0-15.0); Lymphocyte # 1.49 X10^3/ul (0.83-4.51); Lymphocyte % 12.4 % (19-41); Mean Corp Hgb Conc 30.8 g/dL (32-36); Mean Corpuscular Hgb 28.3 pg (27.0-32.0); Mean Corpuscular Volume 91.9 fL (81-99); Mean Platelet Vol. 9.6 fl (6.2-12.0); Monocyte# 0.73 X10^3/uL; Monocyte% 6.1 % (0-10); NRBC Flagged by Analyzer 0 % (0-5); Neutrophil # 9.07 X10^3/uL (2.7-7.7); Neutrophil % 75.7 % (47-70); Platelet Count 431 K/mm3 (150-450); RBC Distribution Width CV 14.6 % (11.6-14.6); RBC Distribution Width SD 48.8 fl (35.1-43.9); Red Blood Count 3.85 M/mm3 (4.2-5.4)
[2023-12-26 18:37] LABS: ALB/GLOB Ratio 0.5 RATIO (0.9-2.4); AST(SGOT) 10 U/L (15-37); Alanine Aminotransfer ALT/SGPT < 6 U/L (13-56); Albumin, Serum 2.4 g/dL (3.2-5.0); Alkaline Phosphatase 92 U/L (45-117); Anion Gap 8 (5-15); BUN 28 mg/dL (7-18); BUN/Creat Ratio 16.1 RATIO (10-20); Calcium,Total 9.6 mg/dL (8.5-10.1); Chloride 106 mmol/L (98-107); Creatinine, Serum 1.74 mg/dL (0.55-1.02); EST Glomerular Filtration Rate 30 mL/min (>60); Est Glom Filt Rate - Afr Amer 36 mL/min (>60); Estimated Creatinine Clearance 23.38 ml/min; Globulin 4.9 g/dL (2.2-4.2); Glucose 119 mg/dL (74-106); Potassium 4.5 mmol/L (3.5-5.1); Protein, Total 7.3 g/dL (6.4-8.2); Sodium Level 138 mmol/L (136-145)
[2023-12-26 18:49] LABS: Ammonia < 10.0 umol/L (11-32)
[2023-12-26 18:55] LABS: Allen Test Positive; Base Excess -3 mmol/L (-2 to +2); Bicarbonate 19.6 mmol/L (22-26); Blood Gas Specimen Type ART; Mode Not entered; O2 Delivery Device Not entered; PO2 127 mmHG (75-100); SITE L Radial; SO2 99 % (95-99); Total Carbon Dioxide 20 mmol/L; pH 7.54 (7.35-7.45)
[2023-12-26] MEDS: Lactated Ringers 1,000 ML 100 ML IV (20:10)
[2023-12-26 21:04] VITALS: BP 110/65; PULSE 111; RESP 18; TEMP 36.4; O2SAT 98
[2023-12-26] MEDS: Atorvastatin Calcium 10 MG Tablet PO (21:07)
[2023-12-26] MEDS: LORazepam 0.5 MG Tablet PO (21:07)
[2023-12-26 21:36] LABS: Bedside Glucose 92 mg/dL (74-106)
[2023-12-26 22:45] LABS: Color, Urine Yellow (Yellow); Glucose, Dipstick Normal (Normal); Ketone-Dipstick 15 mg/dl (Negative); Leukocyte Esterase-Dipstick 500 /ul (Negative); Nitrite-Dipstick Negative (Negative); Occult Blood-Urine 250 /ul (Negative); Protein-Dipstick 100 mg/dl (Negative); Specific Gravity, Urine 1.015 (1.002-1.030); Urine Bilirubin Dipstick Negative (Negative); Urine Clarity Turbid (Clear); Urine Urobilinogen Normal (Normal)
[2023-12-27 03:02] VITALS: BMI 24.7
[2023-12-27 03:30] VITALS: BP 123/65; PULSE 78; RESP 16; TEMP 36.3; O2SAT 99
[2023-12-27] MEDS: Acetaminophen 500 MG Tablet 1000 MG PO ×3 (06:16→21:09)
[2023-12-27] MEDS: Carbidopa/Levodopa 25/100 Tablet PO ×3 (06:16→21:10)
[2023-12-27] MEDS: Levothyroxine 50 MCG Tablet PO (06:16)
[2023-12-27 06:36] LABS: Absolute Lymphocyte Count 1.35 X10^3/uL (0.83-4.51); Basophil# 0.05 X10^3/uL; Basophil% 0.4 % (0-1); Eosinophil# 0.24 X10^3/uL; Eosinophils% 1.9 % (0-5); Hematocrit 33.2 % (37-47); Lymphocyte # 1.35 X10^3/ul (0.83-4.51); Lymphocyte % 10.6 % (19-41); Mean Corp Hgb Conc 30.1 g/dL (32-36); Mean Corpuscular Hgb 28.2 pg (27.0-32.0); Mean Corpuscular Volume 93.8 fL (81-99); Mean Platelet Vol. 9.6 fl (6.2-12.0); Monocyte% 6.3 % (0-10); NRBC Flagged by Analyzer 0 % (0-5); Neutrophil # 9.97 X10^3/uL (2.7-7.7); Neutrophil % 78.5 % (47-70); Platelet Count 420 K/mm3 (150-450); RBC Distribution Width CV 14.6 % (11.6-14.6); RBC Distribution Width SD 50.7 fl (35.1-43.9); Red Blood Count 3.54 M/mm3 (4.2-5.4); White Blood Count 12.7 K/mm3 (4.4-11.0)
[2023-12-27] MEDS: Lactated Ringers 1,000 ML 100 ML IV ×2 (06:36→16:39)
[2023-12-27 06:57] LABS: Anion Gap 13 (5-15); BUN 27 mg/dL (7-18); BUN/Creat Ratio 17.8 RATIO (10-20); Calcium,Total 9.2 mg/dL (8.5-10.1); Chloride 106 mmol/L (98-107); Creatinine, Serum 1.52 mg/dL (0.55-1.02); EST Glomerular Filtration Rate 35 mL/min (>60); Est Glom Filt Rate - Afr Amer 43 mL/min (>60); Estimated Creatinine Clearance 26.75 ml/min; Glucose 119 mg/dL (74-106); Potassium 3.7 mmol/L (3.5-5.1); Sodium Level 139 mmol/L (136-145)
[2023-12-27 07:03] LABS: Bedside Glucose 111 mg/dL (74-106)
[2023-12-27 08:36] VITALS: BP 108/44; PULSE 78; RESP 16; TEMP 36.5; O2SAT 98
[2023-12-27] MEDS: RisperiDONE 0.5 MG Tablet PO ×2 (08:49→21:09)
[2023-12-27] MEDS: Menthol/Lanolin/Calamine/Znox 113 GM Tube 1 APPLIC TOPICAL ×2 (08:49→21:09)
[2023-12-27] MEDS: Aspirin E.C. 81 MG Tablet PO (08:49)
[2023-12-27] MEDS: Lidocaine 5% Patch 1 PATCH TOPICAL (08:49)
[2023-12-27] MEDS: Heparin Injection (Vial) 5,000 UNIT/ML VIAL 5000 UNIT SC ×2 (08:49→21:09)
[2023-12-27 09:12] LABS: Mucous, Urine 0 SEEN /hpf (<or=2+); Squamous Epithelial Cells - UA 0 SEEN /hpf (5-10)
[2023-12-27 09:39] LABS: Color, Urine Yellow (Yellow); Glucose, Dipstick Normal (Normal); Ketone-Dipstick 50 mg/dl (Negative); Leukocyte Esterase-Dipstick 500 /ul (Negative); Nitrite-Dipstick Negative (Negative); Occult Blood-Urine 250 /ul (Negative); Protein-Dipstick 100 mg/dl (Negative); Urine Bilirubin Dipstick Negative (Negative); Urine Clarity Cloudy (Clear); Urine Urobilinogen Normal (Normal)
[2023-12-27 10:22] LABS: Bacteria 2+ /hpf (None Seen); Red Blood Cells-Urine 10-25 SEEN /hpf (0-5); Renal Epithelial Cells 10-25 SEEN /hpf (0-5); White Blood Cells 50-100 SEEN /hpf (0-5)
[2023-12-27 11:27] LABS: Bedside Glucose 116 mg/dL (74-106)
[2023-12-27] MEDS: oxyCODONE 5 MG Tablet 2.5 MG PO (11:36)
[2023-12-27 14:00] VITALS: BP 125/61; PULSE 88; RESP 16; TEMP 36.6; O2SAT 98
--- NOTE | 2023-12-27 14:07 | PCM.PN.HOSP ---
Reason for Visit Reason for Visit: Diarrhea Subjective Subjective I was called late yesterday evening as the patient was more somnolent and difficult to arouse. We ordered stat lab and CT of her head. The only thing that really showed up was newly elevated white count and her UA does look infected. Urine culture was sent we did start antibiotics. Her No was also changed this morning on 12/27/2023. Patient has really no complaints today. She is more arousable and more interactive today than yesterday. Objective Data Objective Data Vital Signs: Vital Signs Temp Pulse Resp BP Pulse Ox O2 Del Method 97.7 F L 78 16 108/44 L 98 Room Air 12/27/23 08:36 12/27/23 08:36 12/27/23 08:36 12/27/23 08:36 12/27/23 08:36 12/27/23 08:36 Oxygen Delivery Method Room Air Weight: 61.5 kg Body Mass Index (BMI) 24.7 Intake & Output: Intake and Output for Last 24 Hours 12/25/23 12/26/23 12/27/23 23:59 23:59 23:59 Intake Total 980 / 1480 1225 / 1225 1075 / 1075 Output Total 1900 / 2525 1475 / 1475 650 / 650 Balance -920 / -1045 -250 / -250 425 / 425 Lab / Micro Data 12/27/23 05:45 12/27/23 05:45 Labs: Laboratory Results - last 24 hr 12/26/23 16:29: POC Glucose 100 12/26/23 17:53: WBC 12.0 H, RBC 3.85 L, Hgb 10.9 L, Hct 35.4 L, MCV 91.9, MCH 28.3, MCHC 30.8 L, RDW Std Deviation 48.8 H, RDW Coeff of Festus 14.6, Plt Count 431, MPV 9.6, Immature Gran % (Auto) 2.100 H, Neut % (Auto) 75.7 H, Lymph % (Auto) 12.4 L, [place] % (Auto) 6.1, Eos % (Auto) 3.2, Baso % (Auto) 0.5, Absolute Neuts (auto) 9.1 H, Absolute Lymphs (auto) 1.49, Nucleated RBC % 0, Sodium 138, Potassium 4.5, Chloride 106, Carbon Dioxide 24.0, Anion Gap 8, BUN 28 H, Creatinine 1.74 H, Estim Creat Clear Calc 23.38, Est GFR (MDRD) Af Amer 36 L, Est GFR (MDRD) Non-Af 30 L, BUN/Creatinine Ratio 16.1, Glucose 119 H, Calcium 9.6, Total Bilirubin 0.40, AST 10 L, ALT < 6 L, Alkaline Phosphatase 92, Ammonia < 10.0 L, Total Protein 7.3, Albumin 2.4 L, Globulin 4.9 H, Albumin/Globulin Ratio 0.5 L 12/26/23 20:35: Urine Color Yellow, Urine Clarity Turbid, Urine pH 6.0, Ur Specific [place] 1.015, Urine Protein 100 H, Urine Glucose (UA) Normal, Urine Ketones 15 H, Urine Occult Blood 250 H, Urine Nitrite Negative, Urine Bilirubin Negative, Urine Urobilinogen Normal, Ur Leukocyte Esterase 500 H 12/26/23 21:05: POC Glucose 92 12/27/23 05:45: WBC 12.7 H, RBC 3.54 L, Hgb 10.0 L, Hct 33.2 L, MCV 93.8, MCH 28.2, MCHC 30.1 L, RDW Std Deviation 50.7 H, RDW Coeff of Festus 14.6, Plt Count 420, MPV 9.6, Immature Gran % (Auto) 2.300 H, Neut % (Auto) 78.5 H, Lymph % (Auto) 10.6 L, [place] % (Auto) 6.3, Eos % (Auto) 1.9, Baso % (Auto) 0.4, Absolute Neuts (auto) 10.0 H, Absolute Lymphs (auto) 1.35, Nucleated RBC % 0, Sodium 139, Potassium 3.7, Chloride 106, Carbon Dioxide 20.0 L, Anion Gap 13, BUN 27 H, Creatinine 1.52 H, Estim Creat Clear Calc 26.75, Est GFR (MDRD) Af Amer 43 L, Est GFR (MDRD) Non-Af 35 L, BUN/Creatinine Ratio 17.8, Glucose 119 H, Calcium 9.2 12/27/23 06:14: POC Glucose 111 H 12/27/23 08:55: Urine Color Yellow, Urine Clarity Cloudy, Urine pH 6.0, Ur Specific [place] 1.010, Urine Protein 100 H, Urine Glucose (UA) Normal, Urine Ketones 50 H, Urine Occult Blood 250 H, Urine Nitrite Negative, Urine Bilirubin Negative, Urine Urobilinogen Normal, Ur Leukocyte Esterase 500 H, Urine RBC 10-25 SEEN, Urine WBC 50-100 SEEN, Ur Squamous Epith Cells 0 SEEN, Ur Renal Epithelial Cell 10-25 SEEN, Urine Bacteria 2+, Urine Mucus 0 SEEN 12/27/23 11:07: POC Glucose 116 H Micro: Microbiology 12/15/23 16:08 Blood Culture (Wb) - Left Hand Blood Culture - Final No growth in 5 days. 12/15/23 16:25 Urine Catheter - Catheter Urine Culture - Final Yeast, not Nabila albicans 12/15/23 23:20 Mucosa - Nasopharyngeal SARS-CoV-2, Influenza & RSV (PCR) - Final ABG Data ABG results: ABG 12/26/23 18:51 Specimen Type ART Sample Site L Radial pH 7.54 H Bicarbonate Actual 19.6 L Total CO2 20 Base Excess -3 L O2 Saturation 99 ABG pCO2 23.0 L ABG pO2 127 H Dimitris Test Positive O2 Delivery Device Not entered Vent Mode Not entered Radiography Diagnostic Testing: Radiology Impression Brain CT 12/26/23 17:08 IMPRESSION: Chronic involutional changes of the brain. Electronically Signed: Jesus Velasquez MD at 17:53 EDT , Physical Exam Const alert, oriented x3, no apparent distress, average body habitus and well nourished; Negative for healthy appearing Constitutional Narrative: Older, white female, lying in bed, watching television, appears older than stated age, does not appear toxic and appears comfortable, does appear a bit more fatigued in the last 48 hours but better than yesterday HEENT head/scalp atraumatic and moist oral mucous membranes HEENT Narrative: Dentition is poor, Mallampati is 2-3, no thrush Resp normal respiratory effort, no retractions, no use of accessory muscles and clear to auscultation bilaterally Auscultation: Negative for rales, rhonchi or wheezes Cardio regular rate, regular rhythm, S1 normal heart sound, S2 normal heart sound, no murmurs, no rub, no gallops and no clicks GI normal to inspection, nondistended, normoactive bowel sounds, soft to palpation and non-tender Extremity normal to inspection, full ROM and no clubbing, cyanosis or edema Extremity Narrative: Right upper extremity PICC line in place-dressing is clean dry and intact Neuro oriented x3, moves all extremities and no focal motor deficits Neuro Narrative: Significant generalized weakness noted but no focal deficits, proximal musculature more affected than distal Sensorium / Orientation: awake and alert Speech: speech normal Psych Psych Narrative: Affect is slightly flat but this seems to be her baseline, eye contact is good and mood seems stable Assessment & Plan Assessment/Plan (1) Hypokalemia: (2) Septic shock: (3) Acidosis, lactic: (4) Abnormal urinalysis: (5) Leukocytosis: PLAN: Plan Multifactorial shock -Suspect septic and hypovolemia related to dehydration -Resolved and antibiotics are completed Leukocytosis-new -Suspect related to new UTI as UA is markedly abnormal -UA is suggestive of infection -No catheter was exchanged -Urine cultures pending -Continue Zosyn -Should be able to transition to oral at discharge CKD stage IIIb -Renal function was up a bit yesterday however I suspect oral intake has been poor -Not enough for YAMILEX -1 L IV fluids given and serum creatinine is back down to close to baseline today any -Baseline appears to be between 1.2 and 1.5 -Hydronephrosis noted bilaterally with no obstructive stone noted on imaging at admission -? Stricture -Discussed case with Dr. Ramirez who reviewed the imaging and felt that the patient should be discharged with a No catheter and follow-up with her in the office within a week of discharge Generalized weakness and debility due to acute illness and history of Parkinson's disease -PT/OT following -Patient's strength is slowly coming back however her mobility and ability for self-care is limited at this time -Patient has been accepted at longterm facility and currently awaiting pre-CERT Hypothyroidism -Continue home Synthroid Parkinson's disease -Continue home carbidopa levodopa Mild cognitive impairment -Restart memantine at discharge CAD status post CABG/essential hypertension/hyperlipidemia -Continue home aspirin -Continue home statin -Blood pressure is good off of her antihypertensive so we will continue to hold Chronic anemia -Normocytic -Counts are stable -Monitor intermittently DM-2 -Restart home oral agents -A1c on admission was 6.4 -Will plan to hold metformin at discharge as she is only on 500 mg twice daily and continue glipizide -Continue SSI -Cardiac/carb controlled diet -Accu-Cheks as ordered -Fasting blood sugar was only 137 Overactive bladder -Continue home solifenacin History of TIA -Continue aspirin Depression/anxiety -Continue home risperidone -Continue home Ativan History of tobacco abuse -Remote -No current pulmonary issues -monitor DVT prophylaxis -Continue subcu heparin CODE STATUS -Full code Patient has been medically stable for discharge since 12/21/2023 and is awaiting pre-CERT now from the insurance company. Doubt anticipate discharge will occur until early next week Charges/Coding Visit Charges Inpatient E&M: 22647 Subs Hosp L2
[2023-12-27] MEDS: Piperacil/Tazobactam 3.375 GM in 0.9% Normal Saline (50mL MB+) 50 ML IV ×2 (14:21→21:08)
[2023-12-27 17:14] LABS: Bedside Glucose 121 mg/dL (74-106)
[2023-12-27 21:05] VITALS: BP 108/58; PULSE 74; RESP 16; TEMP 36.6; O2SAT 97
[2023-12-27] MEDS: Atorvastatin Calcium 10 MG Tablet PO (21:09)
[2023-12-27] MEDS: LORazepam 0.5 MG Tablet PO (21:09)
[2023-12-27 22:06] LABS: Bedside Glucose 126 mg/dL (74-106)
[2023-12-28 03:06] VITALS: BMI 25.0
[2023-12-28] MEDS: Lactated Ringers 1,000 ML 100 ML IV ×2 (03:07→13:10)
[2023-12-28 03:10] VITALS: BP 117/58; PULSE 72; RESP 16; TEMP 36.5; O2SAT 97
[2023-12-28] MEDS: Carbidopa/Levodopa 25/100 Tablet PO ×3 (06:12→21:53)
[2023-12-28] MEDS: Acetaminophen 500 MG Tablet 1000 MG PO ×3 (06:12→21:53)
[2023-12-28] MEDS: Levothyroxine 50 MCG Tablet PO (06:12)
[2023-12-28] MEDS: Piperacil/Tazobactam 3.375 GM in 0.9% Normal Saline (50mL MB+) 50 ML IV ×2 (06:12→15:07)
[2023-12-28 07:03] LABS: Bedside Glucose 108 mg/dL (74-106)
[2023-12-28 07:18] LABS: Hematocrit 31.6 % (37-47); Hemoglobin 9.5 g/dL (12.0-15.0); Mean Corp Hgb Conc 30.1 g/dL (32-36); Mean Corpuscular Hgb 27.8 pg (27.0-32.0); Mean Corpuscular Volume 92.4 fL (81-99); Mean Platelet Vol. 9.2 fl (6.2-12.0); Platelet Count 374 K/mm3 (150-450); RBC Distribution Width CV 14.6 % (11.6-14.6); RBC Distribution Width SD 49.3 fl (35.1-43.9); Red Blood Count 3.42 M/mm3 (4.2-5.4); White Blood Count 11.2 K/mm3 (4.4-11.0)
[2023-12-28 07:43] LABS: Anion Gap 13 (5-15); BUN 21 mg/dL (7-18); BUN/Creat Ratio 15.3 RATIO (10-20); Calcium,Total 9.3 mg/dL (8.5-10.1); Chloride 107 mmol/L (98-107); Creatinine, Serum 1.37 mg/dL (0.55-1.02); EST Glomerular Filtration Rate 40 mL/min (>60); Est Glom Filt Rate - Afr Amer 48 mL/min (>60); Estimated Creatinine Clearance 29.78 ml/min; Glucose 132 mg/dL (74-106); Potassium 4.1 mmol/L (3.5-5.1); Sodium Level 140 mmol/L (136-145)
[2023-12-28] MEDS: RisperiDONE 0.5 MG Tablet PO ×2 (08:33→21:52)
[2023-12-28] MEDS: Heparin Injection (Vial) 5,000 UNIT/ML VIAL 5000 UNIT SC ×2 (08:34→21:51)
[2023-12-28] MEDS: Aspirin E.C. 81 MG Tablet PO (08:34)
[2023-12-28] MEDS: Menthol/Lanolin/Calamine/Znox 113 GM Tube 1 APPLIC TOPICAL ×2 (08:35→21:54)
[2023-12-28] MEDS: Lidocaine 5% Patch 1 PATCH TOPICAL (08:36)
[2023-12-28 09:10] VITALS: BP 120/54; PULSE 100; RESP 15; TEMP 36.4; O2SAT 97
--- NOTE | 2023-12-28 09:54 | CASEMGMT ---
Discharge Planning Requested updates sent via [facility] to [facility]. Shirley Perry DC Planning Asst.
--- NOTE | 2023-12-28 10:16 | PN.HOSP_ITS ---
Reason for Visit Reason for Visit: Diagnoses Sepsis, unspecified organism (12/15/23) Elevated white blood cell count, unspecified (12/15/23) Acidosis, unspecified (12/15/23) Hypokalemia (12/15/23) Diarrhea, unspecified (12/15/23) Weakness (12/15/23) Severe sepsis with septic shock (12/15/23) Unspecified abnormal findings in urine (12/15/23) Subjective Subjective Feeling well. No events. Objective Data Objective Data Vital Signs: Vital Signs Temp Pulse Resp BP Pulse Ox O2 Del Method 36.4 C L 100 15 120/54 L 97 Room Air 12/28/23 09:10 12/28/23 09:10 12/28/23 09:10 12/28/23 09:10 12/28/23 09:10 12/28/23 09:10 Oxygen Delivery Method Room Air Weight: 62 kg Body Mass Index (BMI) 25.0 Intake & Output: Intake and Output for Last 24 Hours 12/26/23 12/27/23 12/28/23 23:59 23:59 23:59 Intake Total 1225 / 1225 2125 / 2245 1170 / 1170 Output Total 1475 / 1475 950 / 1375 875 / 875 Balance -250 / -250 1175 / 870 295 / 295 Lab / Micro Data 12/28/23 07:06 12/28/23 07:06 Labs: Laboratory Results - last 24 hr 12/27/23 08:55: Urine RBC 10-25 SEEN, Urine WBC 50-100 SEEN, Ur Squamous Epith Cells 0 SEEN, Ur Renal Epithelial Cell 10-25 SEEN, Urine Bacteria 2+, Urine Mucus 0 SEEN 12/27/23 11:07: POC Glucose 116 H 12/27/23 16:49: POC Glucose 121 H 12/27/23 21:08: POC Glucose 126 H 12/28/23 06:10: POC Glucose 108 H 12/28/23 07:06: WBC 11.2 H, RBC 3.42 L, Hgb 9.5 L, Hct 31.6 L, MCV 92.4, MCH 27.8, MCHC 30.1 L, RDW Std Deviation 49.3 H, RDW Coeff of Festus 14.6, Plt Count 374, MPV 9.2, Sodium 140, Potassium 4.1, Chloride 107, Carbon Dioxide 20.0 L, Anion Gap 13, BUN 21 H, Creatinine 1.37 H, Estim Creat Clear Calc 29.78, Est GFR (MDRD) Af Amer 48 L, Est GFR (MDRD) Non-Af 40 L, BUN/Creatinine Ratio 15.3, G lucose 132 H, Calcium 9.3 Micro: Microbiology 12/27/23 08:55 Urine Catheter - Josue Urine Culture - Preliminary GNR Poss Pseudomonas sp 12/15/23 16:08 Blood Culture (Wb) - Left Hand Blood Culture - Final No growth in 5 days. 12/15/23 16:25 Urine Catheter - Catheter Urine Culture - Final Yeast, not Nabila albicans 12/15/23 23:20 Mucosa - Nasopharyngeal SARS-CoV-2, Influenza & RSV (PCR) - Final Physical Exam Const alert and no apparent distress HEENT head/scalp atraumatic and moist oral mucous membranes Resp normal respiratory effort, no retractions, no use of accessory muscles and clear to auscultation bilaterally Cardio regular rate, regular rhythm, S1 normal heart sound and S2 normal heart sound GI normal to inspection, nondistended, normoactive bowel sounds, soft to palpation, non-tender and non-distended Assessment & Plan Assessment/Plan (1) Septic shock: PLAN: Plan YAMILEX * Improving. Admitting creatinine 3.36, now down to 1.49. Baseline is around 1.24. * Continue with IV fluids. * Renal ultrasound shows persistent or worsening hydronephrosis bilaterally with increased prominence of pelviectasis bilaterally. * recommending continue josue catheter upon discharge and follow up in a week. septic shock * norepinephrine gtt started. since weaned off. * CCM consult * unclear source, though may be urinary. Lactic acidosis * Admission lactate of 8.3, trended down to 2.5. * Likely combination of dehydration as well as concomitant use of metformin. * Will continue empirically with antibiotics with pip-tazo and vancomycin for now. C. difficile pending. Depending on the infectious workup, either 1 or both antibiotics could be discontinued. * Continue to hold metformin Chronic conditions * Hypothyroidism-Continue Synthroid * Parkinson's disease/MCI-Continue home koaofymgz-aifnyxxs-Vruoiud's home meds not yet updated, unclear if she is taking memantine or Risperdal, would need to reduce with dose of Risperdal likely given her kidney function and would plan to hold memantine during critical illness * Type 2 diabetes mellitus-Glucose checks and sliding scale insulin-Hold oral hypoglycemics * Hx CAD s/p CABG-Continue aspirin and statin-Hold metoprolol given low blood pressure DVT ppx: Heparin subcu Disposition: to SNF.
[2023-12-28] MEDS: Insulin Lispro 100 UNIT/ML INSULN.PEN SC ×2 (11:09→16:14)
[2023-12-28 11:29] LABS: Bedside Glucose 220 mg/dL (74-106)
[2023-12-28 14:00] VITALS: BP 114/49; PULSE 80; RESP 15; TEMP 36.2; O2SAT 96
--- NOTE | 2023-12-28 14:24 | CASEMGMT ---
VENESSA received a call from Chela at [facility] ([facility]) and patient was approved. VENESSA will notify physician. Plan: d/c to [facility] under skilled level of care. Kayley HE
--- NOTE | 2023-12-28 14:52 | TREXTCAR_ITS ---
Diet Diet Order/Speech Therapy: 12/16/23 10:19 Diet: Cardiac: Calorie-Controlled Food consistency:: Regular Liquid Consistency:: Regular/Thin Dietary Modifications:: Consistent Carbohydrate How many daily calories?: 1600 calorie Routine Orders/Code Status Code Status: Full Code Wound(s) LEFT BUTTOCK: Wound Type: Pressure Injury Bilateral Buttocks: Wound Type: Pressure Injury Therapies Physical Therapy: Eval and Treat Occupational Therapy: Eval and Treat Problem/Diagnosis (1) Septic shock: Status: Acute Code(s): A41.9 - Sepsis, unspecified organism; R65.21 - Severe sepsis with septic shock Plan YAMILEX * Improving. Admitting creatinine 3.36, now down to 1.49. Baseline is around 1.24. * Continue with IV fluids. * Renal ultrasound shows persistent or worsening hydronephrosis bilaterally with increased prominence of pelviectasis bilaterally. * recommending continue josue catheter upon discharge and follow up in a week. septic shock * norepinephrine gtt started. since weaned off. * CCM consult * unclear source, though may be urinary. Lactic acidosis * Admission lactate of 8.3, trended down to 2.5. * Likely combination of dehydration as well as concomitant use of metformin. * Will continue empirically with antibiotics with pip-tazo and vancomycin for now. C. difficile pending. Depending on the infectious workup, either 1 or both antibiotics could be discontinued. * Continue to hold metformin Chronic conditions * Hypothyroidism-Continue Synthroid * Parkinson's disease/MCI-Continue home ywxhzwbwk-wzniakrd-Dvykfad's home meds not yet updated, unclear if she is taking memantine or Risperdal, would need to reduce with dose of Risperdal likely given her kidney function and would plan to hold memantine during critical illness * Type 2 diabetes mellitus-Glucose checks and sliding scale insulin-Hold oral hypoglycemics * Hx CAD s/p CABG-Continue aspirin and statin-Hold metoprolol given low blood pressure DVT ppx: Heparin subcu Disposition: to SNF. Allergies/Procedures Done in Hospital Allergies No Known Allergies Allergy (Verified 12/15/23 15:23) Procedures: None Type of Care/Length of Stay Estimated LOS: Convalescent Care Less Than 30 days Type of Care Needed: Skilled Rehab Potential: Fair Prognosis: Good Additional Orders/Day of Discharge Day of Discharge: 12/28/23 Dietary and Speech Recommendations Dietitian Recommendations/Changes: Will continue 1600 calorie/consistent carbohydrate; cardiac diet. Will adjust glucerna shake to 120mL 4 times per day w/ medpass. Will d/c glucerna shake w/ breakfast for now. Discharge Plan Admission Admit Date/Time: 12/15/23 19:33 Primary Reason for Your Visit: Septic shock Attending Provider: Manjit Stephens Primary Care Provider: Dannielle John Consulting Providers: Renzo Markham; Manjit Stephens; Adilene Guzman Discharge Orders/Prescriptions Prescriptions: New acetaminophen 500 mg Tablet 1,000 mg PO Q8 Qty: 0 0RF Continued levothyroxine 50 MCG tablet 50 mcg PO DAILY simvastatin 20 MG tablet 20 mg PO QHS metoprolol tartrate 25 MG tablet 25 mg PO BID glipizide 2.5 mg tablet extended release 24hr 2.5 mg PO DAILY Patient Comments: Take 1 tablet by mouth daily with breakfast. Rx Instructions: with breakfast aspirin 81 mg Tablet 81 mg PO DAILY Rx Instructions: INSTRUCTED TO STOP 5 DAYS PRIOR TO OR carbidopa-levodopa 25-100 mg tablet 1.5 tab PO TID Patient Comments: Take 1 and 1/2 tablets by mouth every morning AND 1 and 1/2 tablets every afternoon AND 1 and 1/2 tablets every evening. (8AM, Noon, 4PM).. memantine 10 mg tablet 10 mg PO BID Patient Comments: Take 1 tablet by mouth twice daily. solifenacin 5 mg tablet 5 mg PO DAILY Patient Comments: Take 1 tablet by mouth once daily. risperidone 0.5 mg tablet 0.5 mg PO BID Patient Comments: Take 1 tablet by mouth twice daily. Changed lorazepam 0.5 MG tablet 0.5 mg PO QHS PRN (Reason: anxiety) Qty: 3 0RF Rx Instructions: take 1-2 tablets by mouth daily at bedtime Discontinued metformin 1,000 MG tablet 500 mg PO BID cephalexin 250 mg Capsule 250 mg PO Q8 3 Days Qty: 9 0RF sennosides-docusate sodium [Stool Softener-Stimulant Laxat] 8.6-50 mg Tablet 2 tab PO BID PRN PRN (Reason: Constipation) Qty: 0 0RF Rx Instructions: Available [id number] doxycycline hyclate 100 mg capsule See Rx Instructions PO TID Rx Instructions: 1.5 tablets tid orally three times a day; Referrals / Follow Up: Sanam Ramirez MD [Med Staff - Active Staff] - Within 1 Week (Within 1 week after discharge) Dannielle John MD [Primary Care Provider] - Within 2 Weeks (After discharge from skilled facility) Disposition Disposition (needs filled in before D/C Order can be placed): [facility] Facility
--- NOTE | 2023-12-28 15:01 | DS.PCM_ITS ---
Providers Date of Admission: 12/15/23 Primary Care Physician: Dr. 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 Admitting creatinine 3.36, now down to 1.49. Baseline is around 1.24. * Continue with IV fluids. * Renal ultrasound shows persistent or worsening hydronephrosis bilaterally with increased prominence of pelviectasis bilaterally. * recommending continue josue catheter upon discharge and follow up in a week. septic shock * norepinephrine gtt started. since weaned off. * CCM consult * unclear source, though may be urinary. Lactic acidosis * Admission lactate of 8.3, trended down to 2.5. * Likely combination of dehydration as well as concomitant use of metformin. * Will continue empirically with antibiotics with pip-tazo and vancomycin for now. C. difficile pending. Depending on the infectious workup, either 1 or both antibiotics could be discontinued. * Continue to hold metformin Chronic conditions * Hypothyroidism-Continue Synthroid * Parkinson's disease/MCI-Continue home fvlnapgoe-iskpkqme-Lztbnyv's home meds not yet updated, unclear if she is taking memantine or Risperdal, would need to reduce with dose of Risperdal likely given her kidney function and would plan to hold memantine during critical illness * Type 2 diabetes mellitus-Glucose checks and sliding scale insulin-Hold oral hypoglycemics * Hx CAD s/p CABG-Continue aspirin and statin-Hold metoprolol given low blood pressure DVT ppx: Heparin subcu Disposition: to SNF. Medications at Discharge Home Medications levothyroxine 50 mcg tablet 50 mcg PO DAILY doc orderd 08/20/19 metoprolol tartrate 25 mg tablet [address] ordered 08/20/19 simvastatin 20 mg tablet [address] ordered 08/20/19 aspirin 81 mg tablet 81 mg PO DAILY daily 05/24/22 carbidopa 25 mg-levodopa 100 mg tablet 1.[address] ordered 05/24/22 glipizide 2.5 mg tablet, extended release 24 hr 2.[address] ordered 05/24/22 memantine 10 mg tablet [address] ordered 05/24/22 risperidone 0.5 mg tablet 0.[address] ordered 05/24/22 solifenacin 5 mg tablet [address] ordered 05/24/22 acetaminophen 500 mg tablet 1,000 mg (2 x 500 mg) PO Q8 #0 tabs 12/28/23 lorazepam 0.5 mg tablet 0.5 mg PO QHS PRN anxiety #3 tabs 12/28/23 Hospital Course Operations None Summary of Care Provided Minutes Spent on Discharge: 36 Hospital Course: Patient presented with septic shock. Initial cultures were negative the patient did complete a course of ceftriaxone. Patient did have a subsequent urine culture performed on the eighth that showed possible Pseudomonas species to which she was started on Zosyn, however, the CFUs was only 1000-10,000 coliform units. With that low Caulley forming units, will hold off any additional antibiotics at this time. Patient is otherwise recovered from her septic shock and [facility]. Weight / BMI Weight Weight: 62 kg Body Mass Index (BMI) 25.0 ABG / Lab / Microbiology Data 12/28/23 07:06 12/28/23 07:06 Laboratory: Laboratory Results - last 24 hr 12/27/23 16:49: POC Glucose 121 H 12/27/23 21:08: POC Glucose 126 H 12/28/23 06:10: POC Glucose 108 H 12/28/23 07:06: WBC 11.2 H, RBC 3.42 L, Hgb 9.5 L, Hct 31.6 L, MCV 92.4, MCH 27.8, MCHC 30.1 L, RDW Std Deviation 49.3 H, RDW Coeff of Festus 14.6, Plt Count 374, MPV 9.2, Sodium 140, Potassium 4.1, Chloride 107, Carbon Dioxide 20.0 L, Anion Gap 13, BUN 21 H, Creatinine 1.37 H, Estim Creat Clear Calc 29.78, Est GFR (MDRD) Af Amer 48 L, Est GFR (MDRD) Non-Af 40 L, BUN/Creatinine Ratio 15.3, G lucose 132 H, Calcium 9.3 12/28/23 11:08: POC Glucose 220 H Microbiology: Microbiology 12/27/23 08:55 Urine Catheter - Josue Urine Culture - Preliminary GNR Poss Pseudomonas sp 12/15/23 16:08 Blood Culture (Wb) - Left Hand Blood Culture - Final No growth in 5 days. 12/15/23 16:25 Urine Catheter - Catheter Urine Culture - Final Yeast, not Nabila albicans 12/15/23 23:20 Mucosa - Nasopharyngeal SARS-CoV-2, Influenza & RSV (PCR) - Final D/C Instructions Discharge Diet: No restrictions Meaningful Use Info Meaningful Use Meaningful Use Diagnoses (Choose all that apply): None applicable Ischemic Stroke Statin Dosing Therapy Reference: STATIN DOSE THERAPY REFERENCE: * Patients > 75 years receive moderate or high dose statin therapy. * Patients 75 years or YOUNGER should receive HIGH intensity statin dose unless contraindicated. You will be required to document reason for non-treatment if statin daily dose does not meet guidelines. HIGH DOSE STATIN THERAPY DAILY Atorvastatin > than or = to 40 mg Rosuvastatin > than or = to 20 mg Amlodipine + Atorvastatin > than or = to 2.5/40 mg Ezetimibe + Simvastatin 10/80 mg Simvastatin 80mg Discharge Plan Admission Admit Date/Time: 12/15/23 19:33 Primary Reason for Your Visit: Septic shock Attending Provider: Manjit Stephens Primary Care Provider: Dannielle John Consulting Providers: Renzo Markham; Manjit Stephens; Adilene Guzman Discharge Orders/Prescriptions Prescriptions: New acetaminophen 500 mg Tablet 1,000 mg PO Q8 Qty: 0 0RF Continued levothyroxine 50 MCG tablet 50 mcg PO DAILY simvastatin 20 MG tablet 20 mg PO QHS metoprolol tartrate 25 MG tablet 25 mg PO BID glipizide 2.5 mg tablet extended release 24hr 2.5 mg PO DAILY Patient Comments: Take 1 tablet by mouth daily with breakfast. Rx Instructions: with breakfast aspirin 81 mg Tablet 81 mg PO DAILY Rx Instructions: INSTRUCTED TO STOP 5 DAYS PRIOR TO OR carbidopa-levodopa 25-100 mg tablet 1.5 tab PO TID Patient Comments: Take 1 and 1/2 tablets by mouth every morning AND 1 and 1/2 tablets every afternoon AND 1 and 1/2 tablets every evening. (8AM, Noon, 4PM).. memantine 10 mg tablet 10 mg PO BID Patient Comments: Take 1 tablet by mouth twice daily. solifenacin 5 mg tablet 5 mg PO DAILY Patient Comments: Take 1 tablet by mouth once daily. risperidone 0.5 mg tablet 0.5 mg PO BID Patient Comments: Take 1 tablet by mouth twice daily. Changed lorazepam 0.5 MG tablet 0.5 mg PO QHS PRN (Reason: anxiety) Qty: 3 0RF Rx Instructions: take 1-2 tablets by mouth daily at bedtime Discontinued metformin 1,000 MG tablet 500 mg PO BID cephalexin 250 mg Capsule 250 mg PO Q8 3 Days Qty: 9 0RF sennosides-docusate sodium [Stool Softener-Stimulant Laxat] 8.6-50 mg Tablet 2 tab PO BID PRN PRN (Reason: Constipation) Qty: 0 0RF Rx Instructions: Available [id number] doxycycline hyclate 100 mg capsule See Rx Instructions PO TID Rx Instructions: 1.5 tablets tid orally three times a day; Referrals / Follow Up: Sanam Ramirez MD [Med Staff - Active Staff] - Within 1 Week (Within 1 week after discharge) Dannielle John MD [Primary Care Provider] - Within 2 Weeks (After discharge from skilled facility) Disposition Disposition (needs filled in before D/C Order can be placed): [facility] Charges/Coding Visit Charges Inpatient E&M: 32980 Disch Hosp >30min
--- NOTE | 2023-12-28 15:15 | CASEMGMT ---
Plan: d/c to [facility] under skilled level of care on a convalescent stay. Physicians will transport patient via cot. Kayley HE
--- NOTE | 2023-12-28 15:23 | PHA.DC.MR.R ---
Pharmacy MD Med Reconciliation Pharmacy Service has performed discharge medication reconciliation for this patient. The patient's discharge medication list was reviewed for discrepancies and discrepancies were resolved. Medications at Discharge Home Medications levothyroxine 50 mcg tablet 50 mcg PO DAILY doc orderd 08/20/19 metoprolol tartrate 25 mg tablet [address] ordered 08/20/19 simvastatin 20 mg tablet [address] ordered 08/20/19 aspirin 81 mg tablet 81 mg PO DAILY daily 05/24/22 carbidopa 25 mg-levodopa 100 mg tablet 1.[address] ordered 05/24/22 glipizide 2.5 mg tablet, extended release 24 hr 2.[address] ordered 05/24/22 memantine 10 mg tablet [address] ordered 05/24/22 risperidone 0.5 mg tablet 0.[address] ordered 05/24/22 solifenacin 5 mg tablet [address] ordered 05/24/22 acetaminophen 500 mg tablet 1,000 mg (2 x 500 mg) PO Q8 #0 tabs 12/28/23 lorazepam 0.5 mg tablet 0.5 mg PO QHS PRN anxiety #3 tabs 12/28/23
--- NOTE | 2023-12-28 15:46 | CASEMGMT ---
Discharge Planning Discharge orders, signed med list, and transport time sent to [facility] via [facility]. Physicians ([facility]) will transport patient by cot at 7p. Nursing, SW, patient, and her updated. Shirley Perry DC Planning Asst.
[2023-12-28 16:34] LABS: Bedside Glucose 163 mg/dL (74-106)
--- NOTE | 2023-12-28 18:36 | NURSING ---
report called to [facility].
[2023-12-28 19:56] VITALS: BP 108/61; PULSE 79; RESP 16; TEMP 36.3; O2SAT 96
[2023-12-28] MEDS: Atorvastatin Calcium 10 MG Tablet PO (21:52)
[2023-12-28] MEDS: LORazepam 0.5 MG Tablet PO (21:58)
[2023-12-28 23:04] LABS: Bedside Glucose 119 mg/dL (74-106)
== END 2023-12-28 23:32 | disposition skilled nursing facility (03) | DRG 871 ==
LOC: ED 15:56 → ICU 20:39 → PCU 12-19 18:26
PROVIDERS: Internal Medicine; Internal Medicine Critical Care Medicine; Admitting Provider Internal Medicine; Emergency Provider Emergency Medicine; PCP Internal Medicine
DX: A41.9 Sepsis, unspecified organism (principal); R65.21 Severe sepsis with septic shock; R57.1 Hypovolemic shock; E87.20 Acidosis, unspecified; N13.30 Unspecified hydronephrosis; N17.9 Acute kidney failure, unspecified; N13.4 Hydroureter; N39.0 Urinary tract infection, site not specified; E11.22 Type 2 diabetes mellitus with diabetic chronic kidney disease; D64.9 Anemia, unspecified; N18.32 Chronic kidney disease, stage 3b; F02.80 Dementia in other diseases classified elsewhere, unspecified severity, without behavioral disturbance, psychotic disturbance, mood disturbance, and anxiety; G20.C Parkinsonism, unspecified; E03.9 Hypothyroidism, unspecified; I12.9 Hypertensive chronic kidney disease with stage 1 through stage 4 chronic kidney disease, or unspecified chronic kidney disease; F32.A Depression, unspecified; I25.10 Atherosclerotic heart disease of native coronary artery without angina pectoris; E78.5 Hyperlipidemia, unspecified; K80.20 Calculus of gallbladder without cholecystitis without obstruction; E11.65 Type 2 diabetes mellitus with hyperglycemia; E87.6 Hypokalemia; E86.1 Hypovolemia; Z79.4 Long term (current) use of insulin; R19.7 Diarrhea, unspecified; Z79.82 Long term (current) use of aspirin; Z79.84 Long term (current) use of oral hypoglycemic drugs; R53.1 Weakness; Z87.891 Personal history of nicotine dependence; Z79.890 Hormone replacement therapy; Z79.01 Long term (current) use of anticoagulants; N32.81 Overactive bladder; Z95.1 Presence of aortocoronary bypass graft; Z86.73 Personal history of transient ischemic attack (TIA), and cerebral infarction without residual deficits; R82.90 Unspecified abnormal findings in urine
CPT/HCPCS: 36415; 36569; 36600; 70450; 71045; 74176; 76770; 80048; 80053; 80202; 81001; 81002; 82140; 82803; 82962; 83036; 83605; 83690; 83735; 84443; 84484; 85025; 85027; 85610; 87040; 87077; 87086; 87088; 87184; 87186; 87631; 93005; 94762; 97110; 97116; 97162; 97166; 97530; 97535; 99285; J7030; J7040; J7050; J7120; A4216

== ENCOUNTER → 2024-01-01 | Outpatient (REF) | payer SELFPAY ==
[2024-01-01 09:15] LABS: ALB/GLOB Ratio 0.5 RATIO (0.9-2.4); AST(SGOT) 9 U/L (15-37); Alanine Aminotransfer ALT/SGPT < 6 U/L (13-56); Albumin, Serum 2.1 g/dL (3.2-5.0); Alkaline Phosphatase 72 U/L (45-117); Anion Gap 7 (5-15); BUN 34 mg/dL (7-18); BUN/Creat Ratio 20.1 RATIO (10-20); Chloride 110 mmol/L (98-107); Creatinine, Serum 1.69 mg/dL (0.55-1.02); EST Glomerular Filtration Rate 31 mL/min (>60); Est Glom Filt Rate - Afr Amer 38 mL/min (>60); Globulin 4.4 g/dL (2.2-4.2); Glucose 175 mg/dL (74-106); Potassium 4.1 mmol/L (3.5-5.1); Protein, Total 6.5 g/dL (6.4-8.2); Sodium Level 140 mmol/L (136-145)
== END ==
LOC: OLS.WCC 05:00
PROVIDERS: PCP Internal Medicine; Visit Provider Family Medicine
DX: A41.1 Sepsis due to other specified staphylococcus (principal); N18.31 Chronic kidney disease, stage 3a; D63.1 Anemia in chronic kidney disease
CPT/HCPCS: 36415; 80053

== ENCOUNTER 2024-01-22 13:25 | Inpatient (IN) | payer MEDICARE, MEDICAID, SELFPAY ==
[2024-01-22] VITALS (23 sets, daily range): BP systolic 88–142; BP diastolic 55–86; PULSE 87–122; RESP 16–21; TEMP 36.2–37.2; O2SAT 94–98; BMI 24.7; BMI 23.8
[2024-01-22 14:27] LABS: Lactic Acid 4.5 mmol/L (0.4-1.9)
--- NOTE | 2024-01-22 14:45 | EX.ED.DYSGE1 ---
HPI <LEONARD Luong - Last Filed: 01/22/24 17:49> History of Present Illness Chief Complaint: Complaint Narrative Narrative: Patient is a 78-year-old female with a long medical history of hypothyroidism, hypertension, cholesterol, chronic UTIs, history of lactic acidosis who presents to the emergency department for urinary catheter leaking, yellow foul-smelling urine. Patient has not been eating and drinking normally, patient states that she feels weak. She is here for evaluation. PFS <LEONARD Luong - Last Filed: 01/22/24 17:49> [facility] Medical History Bacteremia due to coagulase-negative Staphylococcus CKD (chronic kidney disease), stage III Chronic anemia Hypothyroidism History of TIA (transient ischemic attack) Anxiety and depression Former tobacco use Urinary incontinence Parkinson's disease Wears dentures Diabetes Walker as ambulation aid Back pain History of heart attack CAD (coronary artery disease) HLD (hyperlipidemia) GERD (gastroesophageal reflux disease) Type II diabetes mellitus Benign essential hypertension Home Medications ?Medication ?Instructions ?Recorded ?Last Taken ?Type levothyroxine 50 mcg tablet 50 mcg PO DAILY doc orderd 08/20/19 01/17/23 History metoprolol tartrate 25 mg tablet [address] ordered 08/20/19 01/17/23 History aspirin 81 mg tablet 81 mg PO DAILY daily 05/24/22 01/17/23 History carbidopa 25 mg-levodopa 100 mg 1.[address] ordered 05/24/22 01/17/23 History tablet glipizide 2.5 mg tablet, extended 2.[address] ordered 05/24/22 01/17/23 History release 24 hr memantine 10 mg tablet [address] ordered 05/24/22 01/17/23 History risperidone 0.5 mg tablet 0.[address] ordered 05/24/22 01/17/23 History solifenacin 5 mg tablet [address] ordered 05/24/22 Unknown History lorazepam 0.5 mg tablet 0.5 mg PO QHS PRN anxiety #3 tabs 12/28/23 Unknown Rx atorvastatin 10 mg tablet 10 mg PO DAILY 01/22/24 Unknown History metformin 500 mg tablet 500 mg PO BID 01/22/24 Unknown History tolterodine 2 mg capsule,extended 2 mg PO DAILY 01/22/24 Unknown History release 24 hr Allergy/AdvReac Type Severity Reaction Status Date / Time No Known Allergies Allergy Verified 12/15/23 15:23 Family History Mother Heart disease Hypertension Father No problems noted. Surgical History History of ureteroscopy History of cystoscopy Hx of CABG Social History household members: spouse housing: house Smoking Status: Former smoker alcohol intake: never substance use type: does not use ROS <LEONARD Luong - Last Filed: 01/22/24 17:49> ROS ED ROS Narrative Constitutional: Negative for fever, chills, weight loss/. Positive for weakness Eyes: Negative for vision loss, vision change, double vision ENT: Negative for any sore throat, ear pain, congestion Cardiovascular: Negative for any chest pain, tightness, palpitations Respiratory: Negative for any cough, sputum production, hemoptysis, dyspnea, dyspnea on exertion, orthopnea Gastrointestinal: Negative for any abdominal pain, nausea, vomiting, diarrhea, constipation, blood in stool, blood in vomit : Negative for any urinary frequency, dysuria, retention, blood in urine. Positive for No catheter malfunction Muscle skeletal: Negative for any neck pain, back pain Neurological: Negative for any headache, syncope, dizziness Skin: Negative for any rashes, itching, abrasions, lacerations Psychiatric: Negative for any depression, anxiety, stress, suicidal ideation, homicidal ideation Hematologic: Negative for any excessive bruising, easy bleeding EXAM <LEONARD Luong - Last Filed: 01/22/24 17:49> Physical Exam Narrative Exam Narrative: Vital signs reviewed. Patient is alert, slow to respond. Patient looks cachectic, HEET: Head normocephalic atraumatic, TMs clear bilaterally. Posterior pharynx is clear, dry mucous membranes. Nares clear bilaterally. Neck: Supple with no lymphadenopathy or tenderness. No signs of meningismus. Cardiac: Regular rate and rhythm no murmurs gallops or rubs, equal peripheral pulses bilaterally. Respiratory: Lungs clear to auscultation bilaterally. No chest tenderness. Abdomen: Soft, nontender, nondistended. No abdominal bruit or pulsatile masses. No hepatosplenomegaly Extremities: No peripheral edema, no signs of gross trauma or deformity. Active full range of motion of all extremities. Neuro: Cranial nerves II through XII intact, no focal neurological deficits. Skin: Clean dry and intact with no rash, purpura, petechiae, vesicles or pustules. Backs/flank: No CVA tenderness, no midline spinal tenderness, no deformity. Psych: Normal mood and affect. No SI, HI or acute psychosis. : Patient does have a No catheter placed, in the tubing, there is thick yellow foul-smelling urine. Const Vital Signs: 01/22/24 13:27 01/22/24 14:25 01/22/24 14:29 Temperature 97.4 F L 98.0 F Temperature Source Oral Oral Pulse Rate 122 H 100 Respiratory Rate 18 16 Blood Pressure 100/69 142/86 H 142/86 H Blood Pressure Mean 79 104 104 Pulse Ox 97 96 Oxygen Delivery Method Room Air Room Air 01/22/24 15:00 01/22/24 15:07 01/22/24 15:07 Temperature 98.0 F Temperature Source Oral Pulse Rate 95 Respiratory Rate 16 16 Blood Pressure 133/72 H Blood Pressure Mean 92 Pulse Ox 96 96 96 Oxygen Delivery Method Room Air Room Air Room Air 01/22/24 16:00 01/22/24 16:41 01/22/24 17:00 Temperature 98 F Temperature Source Oral Pulse Rate 98 98 96 Respiratory Rate 18 19 H 17 Blood Pressure 130/75 H 134/67 H 118/68 Blood Pressure Mean 93 89 84 Pulse Ox 96 97 97 Oxygen Delivery Method Room Air Room Air Room Air 01/22/24 17:29 Temperature 98.2 F Temperature Source Oral Pulse Rate 96 Respiratory Rate 18 Blood Pressure 118/68 Blood Pressure Mean 84 Pulse Ox 97 Oxygen Delivery Method Room Air <Dr. Ge Nogueira, DO - Last Filed: 01/22/24 16:14> Physical Exam Const Vital Signs: 01/22/24 13:27 01/22/24 14:25 01/22/24 14:29 Temperature 97.4 F L 98.0 F Temperature Source Oral Oral Pulse Rate 122 H 100 Respiratory Rate 18 16 Blood Pressure 100/69 142/86 H 142/86 H Blood Pressure Mean 79 104 104 Pulse Ox 97 96 Oxygen Delivery Method Room Air Room Air 01/22/24 15:00 01/22/24 15:07 01/22/24 15:07 Temperature 98.0 F Temperature Source Oral Pulse Rate 95 Respiratory Rate 16 16 Blood Pressure 133/72 H Blood Pressure Mean 92 Pulse Ox 96 96 96 Oxygen Delivery Method Room Air Room Air Room Air 01/22/24 16:00 01/22/24 16:41 01/22/24 17:00 Temperature 98 F Temperature Source Oral Pulse Rate 98 98 96 Respiratory Rate 18 19 H 17 Blood Pressure 130/75 H 134/67 H 118/68 Blood Pressure Mean 93 89 84 Pulse Ox 96 97 97 Oxygen Delivery Method Room Air Room Air Room Air 01/22/24 17:29 Temperature 98.2 F Temperature Source Oral Pulse Rate 96 Respiratory Rate 18 Blood Pressure 118/68 Blood Pressure Mean 84 Pulse Ox 97 Oxygen Delivery Method Room Air Sepsis Attestation <Dr. Ge Nogueira DO - Last Filed: 01/22/24 16:14> Sepsis Attestation: Agree w/Sepsis Date exam was performed: 01/22/24 Time exam was performed: 15:15 Possible Source of Sepsis: Genitourinary Sepsis Organ Dysfunction Criteria Present: Creatinine > 2.0 mg/dL and Lactic Acid > 2 mmol/L Supportive Findings: Evidence of urinary tract infection on UA, leukocytosis, elevated lactic acid, elevated creatinine, tachycardia Fluid Resuscitation Amount of fluid ordered: 2,000 Sepsis Note Sepsis Attestation: Sepsis re-evaluation was performed (Patient is not hypotensive. She is alert. She appears to be perfusing distally with capillary refill less than 3 seconds. Heart rate is below 100 and blood pressure is improved. Currently 130/75) [facility] <LEONARD Luong - Last Filed: 01/22/24 17:49> [facility] Lab Data Labs: Laboratory Results - last 24 hr 01/22/24 01/22/24 01/22/24 13:14 13:40 15:34 WBC 17.3 H RBC 4.38 Hgb 12.2 Hct 40.8 MCV 93.2 MCH 27.9 MCHC 29.9 L RDW Std Deviation 47.3 H RDW Coeff of Festus 13.8 Plt Count 393 MPV 11.0 Immature Gran % (Auto) 0.600 Neut % (Auto) 85.6 H Lymph % (Auto) 5.9 L [place] % (Auto) 7.3 Eos % (Auto) 0.3 Baso % (Auto) 0.3 Absolute Neuts (auto) 14.8 H Absolute Lymphs (auto) 1.03 Nucleated RBC % 0 PT 14.4 INR 1.1 APTT 37.6 H Sodium 136 Potassium 5.1 Chloride 104 Carbon Dioxide 23.0 Anion Gap 9 BUN 80 H Creatinine 2.74 H Estim Creat Clear Calc 14.82 Est GFR (MDRD) Af Amer 22 L Est GFR (MDRD) Non-Af 18 L BUN/Creatinine Ratio 29.2 H Glucose 256 H Lactic Acid 4.5 H* Calcium 10.4 H Total Bilirubin 0.70 AST 11 L ALT 8 L Alkaline Phosphatase 96 Total Protein 9.3 H Albumin 3.2 Globulin 6.1 H Albumin/Globulin Ratio 0.5 L Urine Color Yellow Urine Clarity Cloudy Urine pH 6.0 Ur Specific [place] 1.015 Urine Protein 100 H Urine Glucose (UA) Normal Urine Ketones Negative Urine Occult Blood 250 H Urine Nitrite Negative Urine Bilirubin Negative Urine Urobilinogen Normal Ur Leukocyte Esterase 500 H Urine RBC 10-25 SEEN Urine WBC 50-100 SEEN Ur Squamous Epith Cells 0-5 SEEN Ur Renal Epithelial Cell 0-5 SEEN Urine Bacteria 2+ Urine Mucus 0 SEEN Radiography Diagnostic Testing: Clinical Impression(s) from Imaging Studies Abdomen/Pelvis CT 01/22/24 16:00 IMPRESSION: Persistent bilateral hydroureteronephrosis with perinephric and periureteral fat stranding as well as inflammatory changes surrounding the bladder. Obstruction is most likely at the bilateral UVJs. Consider IR consult for stent placement after resolution of any possible infection. Electronically Signed: Bryn Duran MD at 17:10 EDT , Treatment and Re-Evaluation :: Differential diagnosis includes however is not limited to: Sepsis, lactic acidosis, UTI, No catheter malfunction, metabolic encephalopathy Patient appears slightly slow to respond, patient appears cachectic, patient's mucous membranes are dry, presenting to the emergency department for foul-smelling urine, urine leaking around the No catheter bag. Patient has a lactic acid is 4.2, physical examination consistent with a UTI.I did look at the patient's records, patient does have a history of Pseudomonas aeruginosa. Patient will receive 1 L of normal saline. Patient's vital signs will be monitored. Patient's laboratory values show a leukocytosis with a white blood count of 17.3, patient's chemistries show acute kidney injury with a creatinine of 2.74, glucose is 256 with a lactic acid of 4.5. Patient does trigger sepsis, patient does have a UTI with 2+ bacteria 500-100 white blood cells, 10-25 red blood cells, 500 leukocytes. Urine culture was sent. Patient did receive the 30 cc/kg fluid bolus. At this time, CT scan of the abdomen pelvis without contrast will be ordered. The patient will receive IV Cipro, this is secondary to the past urine culture. This patient will need to be amitted the hospital, I will reach out to the hospitalist after the CT scan of the abdomen pelvis. Patient's vital signs remained stable. Spoke with hospitalist, he referred me to speak with urologist. I did speak with the urologist, this urologist not on-call. I discussed the patient case with her. This urologist will be able to consult with the patient starting tomorrow. I then spoke with the admitting physician again, the patient will be admitted ICU, IV antibiotics, IV fluids will be given. Looking at the patient's past, patient has had elevated lactic acid before, as well as similar readings on CAT scan. Patient will be admitted to the hospital. Patient CT scan shows persistent bilateral hydronephrosis with perinephric and periureteral fat stranding as well as inflammation changes surrounding the bladder. Obstruction is most likely at the bilateral UVJ's, consider IR consultation. Patient on previous CT scans did show some of these chronic problems. I will reach out to hospitalist, patient will be started IV Cipro, patient's vital signs remained stable, patient will be admitted to hospital. I have personally performed a face to face assessment of the patient and have reviewed the CHERY Note. I performed a substantive portion of the visit including all aspects of the following. My chaney findings include: History is 78-year-old female with a chronic indwelling No catheter presenting to the emergency department. Patient's No catheter has thick purulent looking urine. She notes some generalized abdominal pain. No reported fevers. Her last urine culture showed Pseudomonas. Exam is mild diffuse tenderness to palpation of the abdomen. She is alert. While initially tachycardic her heart rate has come down with IV fluids blood pressure is normal. The patient has a indwelling No catheter that was changed by nursing. Medical Decison Making patient has a leukocytosis and elevated creatinine evidence of UTI elevated lactic acid. Patient received IV fluids pancultured given antibiotics based on her previous urine culture with Pseudomonas. CT of the abdomen pelvis will be obtained and the patient will be admitted to the hospital. <Dr. Ge Nogueira, DO - Last Filed: 01/22/24 16:14> [facility] History & Record Review Discussion w/independent historian: Patient Lab Data Attestation: I reviewed the patient's lab results. Labs: Laboratory Results - last 24 hr 01/22/24 01/22/24 01/22/24 13:14 13:40 15:34 WBC 17.3 H RBC 4.38 Hgb 12.2 Hct 40.8 MCV 93.2 MCH 27.9 MCHC 29.9 L RDW Std Deviation 47.3 H RDW Coeff of Festus 13.8 Plt Count 393 MPV 11.0 Immature Gran % (Auto) 0.600 Neut % (Auto) 85.6 H Lymph % (Auto) 5.9 L [place] % (Auto) 7.3 Eos % (Auto) 0.3 Baso % (Auto) 0.3 Absolute Neuts (auto) 14.8 H Absolute Lymphs (auto) 1.03 Nucleated RBC % 0 PT 14.4 INR 1.1 APTT 37.6 H Sodium 136 Potassium 5.1 Chloride 104 Carbon Dioxide 23.0 Anion Gap 9 BUN 80 H Creatinine 2.74 H Estim Creat Clear Calc 14.82 Est GFR (MDRD) Af Amer 22 L Est GFR (MDRD) Non-Af 18 L BUN/Creatinine Ratio 29.2 H Glucose 256 H Lactic Acid 4.5 H* Calcium 10.4 H Total Bilirubin 0.70 AST 11 L ALT 8 L Alkaline Phosphatase 96 Total Protein 9.3 H Albumin 3.2 Globulin 6.1 H Albumin/Globulin Ratio 0.5 L Urine Color Yellow Urine Clarity Cloudy Urine pH 6.0 Ur Specific [place] 1.015 Urine Protein 100 H Urine Glucose (UA) Normal Urine Ketones Negative Urine Occult Blood 250 H Urine Nitrite Negative Urine Bilirubin Negative Urine Urobilinogen Normal Ur Leukocyte Esterase 500 H Urine RBC 10-25 SEEN Urine WBC 50-100 SEEN Ur Squamous Epith Cells 0-5 SEEN Ur Renal Epithelial Cell 0-5 SEEN Urine Bacteria 2+ Urine Mucus 0 SEEN Radiography Diagnostic Testing: Clinical Impression(s) from Imaging Studies Abdomen/Pelvis CT 01/22/24 16:00 IMPRESSION: Persistent bilateral hydroureteronephrosis with perinephric and periureteral fat stranding as well as inflammatory changes surrounding the bladder. Obstruction is most likely at the bilateral UVJs. Consider IR consult for stent placement after resolution of any possible infection. Electronically Signed: Bryn Duran MD at 17:10 EDT , Treatment and Re-Evaluation :: Differential diagnosis includes however is not limited to: Sepsis, lactic acidosis, UTI, No catheter malfunction, metabolic encephalopathy Patient appears slightly slow to respond, patient appears cachectic, patient's mucous membranes are dry, presenting to the emergency department for foul-smelling urine, urine leaking around the No catheter bag. Patient has a lactic acid is 4.2, physical examination consistent with a UTI.I did look at the patient's records, patient does have a history of Pseudomonas aeruginosa. Patient will receive 1 L of normal saline. Patient's vital signs will be monitored. Patient's laboratory values show a leukocytosis with a white blood count of 17.3, patient's chemistries show acute kidney injury with a creatinine of 2.74, glucose is 256 with a lactic acid of 4.5. Patient does trigger sepsis, patient does have a UTI with 2+ bacteria 500-100 white blood cells, 10-25 red blood cells, 500 leukocytes. Urine culture was sent. Patient did receive the 30 cc/kg fluid bolus. At this time, CT scan of the abdomen pelvis without contrast will be ordered. The patient will receive IV Cipro, this is secondary to the past urine culture. This patient will need to be admitted the hospital, I will reach out to the hospitalist after the CT scan of the abdomen pelvis. Patient's vital signs remained stable. I have personally performed a face to face assessment of the patient and have reviewed the CHERY Note. I performed a substantive portion of the visit including all aspects of the following. My chaney findings include: History is 78-year-old female with a chronic indwelling No catheter presenting to the emergency department. Patient's No catheter has thick purulent looking urine. She notes some generalized abdominal pain. No reported fevers. Her last urine culture showed Pseudomonas. Exam is mild diffuse tenderness to palpation of the abdomen. She is alert. While initially tachycardic her heart rate has come down with IV fluids blood pressure is normal. The patient has a indwelling No catheter that was changed by nursing. Medical Decison Making patient has a leukocytosis and elevated creatinine evidence of UTI elevated lactic acid. Patient received IV fluids pancultured given antibiotics based on her previous urine culture with Pseudomonas. CT of the abdomen pelvis will be obtained and the patient will be admitted to the hospital. Discharge Plan Dx/Rx/DC Orders Clinical Impression: YAMILEX (acute kidney injury), Sepsis Disposition Disposition: Acute Care Hospital [facility]
[2024-01-22] MEDS: 0.9% Normal Saline (1000mL) 1,000 ML 50 ML IV (15:12)
[2024-01-22 15:37] LABS: Mucous, Urine 0 SEEN /hpf (<or=2+)
[2024-01-22 15:40] LABS: Color, Urine Yellow (Yellow); Glucose, Dipstick Normal (Normal); Ketone-Dipstick Negative (Negative); Leukocyte Esterase-Dipstick 500 /ul (Negative); Nitrite-Dipstick Negative (Negative); Occult Blood-Urine 250 /ul (Negative); Protein-Dipstick 100 mg/dl (Negative); Specific Gravity, Urine 1.015 (1.002-1.030); Urine Bilirubin Dipstick Negative (Negative); Urine Clarity Cloudy (Clear); Urine Urobilinogen Normal (Normal)
--- NOTE | 2024-01-22 15:41 | ED.RN ---
Lab called for outstanding labs despite being sent in same bag. I was informed by Tracy that they did not run the hematology for some reason. patient care delayed d/t this.
[2024-01-22 15:55] LABS: Bacteria 2+ /hpf (None Seen); Red Blood Cells-Urine 10-25 SEEN /hpf (0-5); Squamous Epithelial Cells - UA 0-5 SEEN /hpf (5-10); White Blood Cells 50-100 SEEN /hpf (0-5)
[2024-01-22 15:56] LABS: Renal Epithelial Cells 0-5 SEEN /hpf (0-5)
[2024-01-22] MEDS: 0.9% Normal Saline (1000mL) 1,000 ML 999 ML IV (15:56)
--- NOTE | 2024-01-22 15:57 | ED.RN ---
1530: per provider increase current fluid rate to bolus and new order for 2nd liter to be entered.
[2024-01-22 15:58] LABS: Absolute Lymphocyte Count 1.03 X10^3/uL (0.83-4.51); Absolute Neutrophil Count 14.8 X10^3/uL (2.0-7.7); Basophil# 0.06 X10^3/uL; Basophil% 0.3 % (0-1); Eosinophil# 0.05 X10^3/uL; Eosinophils% 0.3 % (0-5); Hematocrit 40.8 % (37-47); Hemoglobin 12.2 g/dL (12.0-15.0); Lymphocyte # 1.03 X10^3/ul (0.83-4.51); Lymphocyte % 5.9 % (19-41); Mean Corp Hgb Conc 29.9 g/dL (32-36); Mean Corpuscular Hgb 27.9 pg (27.0-32.0); Mean Corpuscular Volume 93.2 fL (81-99); Monocyte# 1.27 X10^3/uL; Monocyte% 7.3 % (0-10); NRBC Flagged by Analyzer 0 % (0-5); Neutrophil # 14.81 X10^3/uL (2.7-7.7); Neutrophil % 85.6 % (47-70); Platelet Count 393 K/mm3 (150-450); RBC Distribution Width CV 13.8 % (11.6-14.6); RBC Distribution Width SD 47.3 fl (35.1-43.9); Red Blood Count 4.38 M/mm3 (4.2-5.4); White Blood Count 17.3 K/mm3 (4.4-11.0)
[2024-01-22 15:59] LABS: ALB/GLOB Ratio 0.5 RATIO (0.9-2.4); AST(SGOT) 11 U/L (15-37); Alanine Aminotransfer ALT/SGPT 8 U/L (13-56); Albumin, Serum 3.2 g/dL (3.2-5.0); Alkaline Phosphatase 96 U/L (45-117); Anion Gap 9 (5-15); BUN 80 mg/dL (7-18); BUN/Creat Ratio 29.2 RATIO (10-20); Calcium,Total 10.4 mg/dL (8.5-10.1); Chloride 104 mmol/L (98-107); Creatinine, Serum 2.74 mg/dL (0.55-1.02); EST Glomerular Filtration Rate 18 mL/min (>60); Est Glom Filt Rate - Afr Amer 22 mL/min (>60); Estimated Creatinine Clearance 14.82 ml/min; Globulin 6.1 g/dL (2.2-4.2); Glucose 256 mg/dL (74-106); Potassium 5.1 mmol/L (3.5-5.1); Protein, Total 9.3 g/dL (6.4-8.2); Sodium Level 136 mmol/L (136-145)
--- NOTE | 2024-01-22 16:00 | CT_ITS ---
INDICATION: abdominal pain EXAMINATION: CT Abdomen And Pelvis W/O Contrast Injection TECHNIQUE: Helically acquired images were obtained of the abdomen and pelvis without the use of IV contrast. A radiation dose optimization technique was used for this scan. Oral contrast: None. COMPARISON: 12/15/2023 FINDINGS: Evaluation of the solid organs and vascular structures is limited without intravenous contrast. Visualized lung bases: Bibasilar atelectasis. Liver: Unremarkable Gallbladder: Few small intraluminal stones seen. Spleen: Unremarkable Pancreas: Unremarkable Adrenal Glands: Unremarkable Kidneys: Redemonstration of moderate bilateral hydroureteronephrosis with perinephric and periureteral fat stranding. No obstructing stone or mass seen. Vasculature: Moderate aortoiliac atherosclerotic disease. GI Tract: Moderate amount retained stool in the colon. Lymphadenopathy: None Peritoneum: No ascites. Bladder: Persistent circumferential wall thickening with subtle surrounding inflammatory changes. No catheter in place. Reproductive organs: Unremarkable Bones/Soft tissues: There are diffuse degenerative changes of the spine. CT/Abdomen/Pelvis without Cont IMPRESSION: Persistent bilateral hydroureteronephrosis with perinephric and periureteral fat stranding as well as inflammatory changes surrounding the bladder. Obstruction is most likely at the bilateral UVJs. Consider IR consult for stent placement after resolution of any possible infection. Electronically Signed: Bryn Duran MD at 17:10 EDT ,
[2024-01-22 16:27] LABS: International Normalized Ratio 1.1; Prothrombin Time (Protime)PT. 14.4 SECONDS (11.7-14.9)
[2024-01-22 16:28] LABS: Partial Thromboplast Time 37.6 Seconds (24.1-36.2)
[2024-01-22] MEDS: Ciprofloxacin 400 MG/200 ML BAG 200 MG IV (16:41)
[2024-01-22 17:44] LABS: Reflex Lactate? Y
--- NOTE | 2024-01-22 17:54 | HP.PCM.HOS_ITS ---
HPI - General General Date of Admission: 01/22/24 Date of Service: 01/22/24 Chief Complaint: Generalized weakness HPI Narrative LOYDA GARCIA, is a 78 F with past medical history single for diabetes mellitus type 2, chronic kidney disease stage III, recent hospitalization for cystitis who was brought to the emergency department after her home health nurse noticed significant change in patient catheter back. Report was that patient had puslike material in his urine catheter bag. She had apparently also been experiencing progressive generalized weakness since being discharged home from a intermediate facility. Was brought to the emergency department as a result. An assessment of sepsis secondary to acute cystitis was made. Imaging studies obtained in the ED did demonstrate Persistent bilateral hydroureteronephrosis with perinephric and periureteral fat stranding as well as inflammatory changes surrounding the bladder. Obstruction is most likely at the bilateral UVJs. Treatment of sepsis per protocol was initiated in the ED admitted to the intensive care unit for further management [facility] Medical History Bacteremia due to coagulase-negative Staphylococcus CKD (chronic kidney disease), stage III Chronic anemia Hypothyroidism History of TIA (transient ischemic attack) Anxiety and depression Former tobacco use Urinary incontinence Parkinson's disease Wears dentures Diabetes Walker as ambulation aid Back pain History of heart attack CAD (coronary artery disease) HLD (hyperlipidemia) GERD (gastroesophageal reflux disease) Type II diabetes mellitus Benign essential hypertension Home Medications ?Medication ?Instructions ?Recorded ?Last Taken ?Type levothyroxine 50 mcg tablet 50 mcg PO DAILY doc orderd 08/20/19 01/17/23 History metoprolol tartrate 25 mg tablet [address] ordered 08/20/19 01/17/23 History aspirin 81 mg tablet 81 mg PO DAILY daily 05/24/22 01/17/23 History carbidopa 25 mg-levodopa 100 mg 1.[address] ordered 05/24/22 01/17/23 History tablet glipizide 2.5 mg tablet, extended 2.[address] ordered 05/24/22 01/17/23 History release 24 hr memantine 10 mg tablet [address] ordered 05/24/22 01/17/23 History risperidone 0.5 mg tablet 0.[address] ordered 05/24/22 01/17/23 History solifenacin 5 mg tablet [address] hidalgo 05/24/22 Unknown History lorazepam 0.5 mg tablet 0.5 mg PO QHS PRN anxiety #3 tabs 12/28/23 Unknown Rx atorvastatin 10 mg tablet 10 mg PO DAILY 01/22/24 Unknown History metformin 500 mg tablet 500 mg PO BID 01/22/24 Unknown History tolterodine 2 mg capsule,extended 2 mg PO DAILY 01/22/24 Unknown History release 24 hr Allergy/AdvReac Type Severity Reaction Status Date / Time No Known Allergies Allergy Verified 12/15/23 15:23 Family History Mother Heart disease Hypertension Father No problems noted. Surgical History History of ureteroscopy History of cystoscopy Hx of CABG Social History household members: spouse housing: house Smoking Status: Former smoker alcohol intake: never substance use type: does not use ROS ROS Narrative GENERAL: Generalized weakness HEENT: denies headache, sinus congestion, or drainage, dysphagia RESPIRATORY: denies cough, sputum production, shortness of breath, dyspnea on exertion CARDIAC: denies chest pain, palpitations, orthopnea, PND GASTROINTESTINAL: denies abdominal pain, nausea, vomiting, melena, GENITOURINARY: Puslike material in indwelling No catheter EXTREMITY: denies swelling MUSCULOSKELETAL: denies current joint pain or tenderness NEUROLOGIC: denies focal numbness, weakness, tingling HEMATOLOGIC: denies easy bruising and/or hemorrhage INTEGUMENT: denies rashes PSYCHIATRIC: denies suicidal or homicidal ideation Vital Signs Vital Signs Vital Signs: 01/22/24 13:27 01/22/24 14:25 01/22/24 14:29 Temperature 97.4 F L 98.0 F Temperature Source Oral Oral Pulse Rate 122 H 100 Respiratory Rate 18 16 Blood Pressure 100/69 142/86 H 142/86 H Blood Pressure Mean 79 104 104 Pulse Ox 97 96 Oxygen Delivery Method Room Air Room Air 01/22/24 15:00 01/22/24 15:07 01/22/24 15:07 Temperature 98.0 F Temperature Source Oral Pulse Rate 95 Respiratory Rate 16 16 Blood Pressure 133/72 H Blood Pressure Mean 92 Pulse Ox 96 96 96 Oxygen Delivery Method Room Air Room Air Room Air 01/22/24 16:00 01/22/24 16:41 01/22/24 17:00 Temperature 98 F Temperature Source Oral Pulse Rate 98 98 96 Respiratory Rate 18 19 H 17 Blood Pressure 130/75 H 134/67 H 118/68 Blood Pressure Mean 93 89 84 Pulse Ox 96 97 97 Oxygen Delivery Method Room Air Room Air Room Air 01/22/24 17:29 01/22/24 17:44 01/22/24 17:51 Temperature 98.2 F 98.9 F 98.9 F Temperature Source Oral Oral Pulse Rate 96 95 97 Respiratory Rate 18 21 H 21 H Blood Pressure 118/68 110/62 110/62 Blood Pressure Mean 84 78 78 Pulse Ox 97 97 97 Oxygen Delivery Method Room Air Room Air Weight Weight: 61.3 kg Body Mass Index (BMI) 24.7 Physical Exam Narrative GENERAL: No apparent but very hesitant in responding to questions HEENT: Atraumatic; normocephalic EYES; Anicteric, Normal Conjunctiva NECK; supple, normal thyroid, RESPIRATORY: Diminished to auscultation CARDIOVASCULAR: Regular S1 S2, GI: soft, normoactive bowel sounds, : No Renal angle tenderness; EXTREMITIES: No edema, no clubbing, MUSCULOSKELETAL: no muscle wasting NEURO: Awake; no lateralizing signs. SKIN: No Rash PSYCH; Flat affect Results Lab / Micro Data 01/22/24 13:14 01/22/24 13:14 Labs: Laboratory Results - last 24 hr 01/22/24 13:14: WBC 17.3 H, RBC 4.38, Hgb 12.2, Hct 40.8, MCV 93.2, MCH 27.9, M CHC 29.9 L, RDW Std Deviation 47.3 H, RDW Coeff of Festus 13.8, Plt Count 393, MPV 11.0, Immature Gran % (Auto) 0.600, Neut % (Auto) 85.6 H, Lymph % (Auto) 5.9 L, [place] % (Auto) 7.3, Eos % (Auto) 0.3, Baso % (Auto) 0.3, Absolute Neuts (auto) 14.8 H, Absolute Lymphs (auto) 1.03, Nucleated RBC % 0, PT 14.4, INR 1.1, APTT 37.6 H, Sodium 136, Potassium 5.1, Chloride 104, Carbon Dioxide 23.0, Anion Gap 9, BUN 80 H, Creatinine 2.74 H, Estim Creat Clear Calc 14.82, Est GFR (MDRD) Af Amer 22 L, Est GFR (MDRD) Non-Af 18 L, BUN/Creatinine Ratio 29.2 H, Glucose 256 H, Calcium 10.4 H, Total Bilirubin 0.70, AST 11 L, ALT 8 L, Alkaline Phosphatase 96, Total Protein 9.3 H, Albumin 3.2, Globulin 6.1 H, Albumin/Globulin Ratio 0.5 L 01/22/24 13:40: Lactic Acid 4.5 H* 01/22/24 15:34: Urine Color Yellow, Urine Clarity Cloudy, Urine pH 6.0, Ur Specific [place] 1.015, Urine Protein 100 H, Urine Glucose (UA) Normal, Urine Ketones Negative, Urine Occult Blood 250 H, Urine Nitrite Negative, Urine Bilirubin Negative, Urine Urobilinogen Normal, Ur Leukocyte Esterase 500 H, Urine RBC 10-25 SEEN, Urine WBC 50-100 SEEN, Ur Squamous Epith Cells 0-5 SEEN, Ur Renal Epithelial Cell 0-5 SEEN, Urine Bacteria 2+, Urine Mucus 0 SEEN Imaging Radiology Impression Abdomen/Pelvis CT 01/22/24 16:00 IMPRESSION: Persistent bilateral hydroureteronephrosis with perinephric and periureteral fat stranding as well as inflammatory changes surrounding the bladder. Obstruction is most likely at the bilateral UVJs. Consider IR consult for stent placement after resolution of any possible infection. Electronically Signed: Bryn Duran MD at 17:10 EDT , Assessment & Plan Assessment/Plan (1) YAMILEX (acute kidney injury): (2) Sepsis: (3) Urinary tract infection: PLAN: Plan Patient is a 78-year-old lady presented with progressive generalized weakness 1. Sepsis ? Secondary to urinary tract infection. Imaging studies obtained on admission persistent bilateral hydroureteronephrosis with perinephric and periureteral fat stranding as well as inflammatory changes surrounding the bladder. Obstruction is most likely at the bilateral UVJs. Patient in addition has evidence of endorgan dysfunction with worsening kidney function as well as lactic acidosis. Treatment initiated per protocol with IV fluid broad-spectrum antibiotic therapy after cultures have been sent. Response to therapy being monitored with serial lactic acid levels. 2. Bilateral hydronephrosis ? Consult was placed to urology Case discussed with Dr. Ramirez plan is for patient to undergo urological intervention with stent placement in a.m. Patient be kept n.p.o. after midnight 3. Acute kidney injury ? Superimposed on chronic kidney disease stage III. Baseline creatinine 1.5 creatinine on admission was 2.74. Do expect improvement with hydration as well as relief of patient hydronephrosis 4. Diabetes mellitus type 2 ? Patient is on glipizide as well as metformin held placed on Accu-Cheks before meals and at bedtime with sliding scale coverage as well as long-acting insulin 5. Parkinson's disease ? Patient is on carbidopa levodopa did contain 6. Hypothyroidism ? Patient is on levothyroxine home dose continued 7. Coronary artery disease ? With previous CABG patient is on antiplatelet therapy with aspirin as well as statin therapy and beta-blockers 8. Essential hypertension ? Patient antihypertensives currently being held given her presentation 9. Dyslipidemia ?Patient is on statin therapy, continued at home dose 10. Mild cognitive impairment ? Patient is on Namenda plan is to continue 11.Overactive bladder -Continue home solifenacin 12. History of TIA -Continue aspirin 13. Depression/anxiety -Continue home risperidone and Ativan 14. DVT prophylaxis -Continue subcu heparin Time spent in the patient's overall evaluation,decision-making process, review of diagnostic data, adjustment of management, discussion with other providers, nursing nursing and ancillary staff involved in patient's care documentation, 85 Minutes Sepsis Attestation Sepsis Alert: Yes Sepsis Attestation: Agree w/Sepsis Date exam was performed: 01/22/24 Time exam was performed: 17:54 Possible Source of Sepsis: Genitourinary Sepsis Organ Dysfunction Criteria Present: Creatinine > 2.0 mg/dL and Lactic Acid > 2 mmol/L Fluid Resuscitation Fluid Resuscitation ordered: 30 ml/kg fluid bolus ordered Charges/Coding Multi Select Codes Hospitalists' Procedures Procedures: 23318 Critical Care 1st Hr and 30428 Critical Care Addl 30 Min
--- NOTE | 2024-01-22 17:58 | ED.RN ---
I SPOKE W/ , SAUL GARCIA AND HE WAS GIVEN AN UPDATE OF PATIENT DIPSO. THERE WERE NO FURTHER QUESTIONS BY THE AT THIS TIME.
--- NOTE | 2024-01-22 18:36 | ED.RN ---
REPORT CALLED TO ICU NURSEJERSON. NO FURTHER QUESTIONS BY THE RECEIVING NURSE AT THIS TIME. THEY ARE READY FOR PT. IN ICU
[2024-01-22 18:57] LABS: Lactic Acid 2.4 mmol/L (0.4-1.9)
[2024-01-22] MEDS: 0.9% Normal Saline (1000mL) 1,000 ML 150 ML IV (19:24)
[2024-01-22 21:33] LABS: Bedside Glucose 111 mg/dL (74-106)
[2024-01-22] MEDS: Insulin Glargine-YFGN 100 UNIT/ML Pen 10 UNIT SC (22:03)
[2024-01-22] MEDS: Cefepime HCl 2 GM in 0.9% Normal Saline (100mL MB+) 100 ML IV (22:03)
[2024-01-22] MEDS: Heparin Injection (Vial) 5,000 UNIT/ML VIAL 5000 UNIT SC (22:04)
[2024-01-23] VITALS (23 sets, daily range): BP systolic 90–136; BP diastolic 47–94; PULSE 61–98; RESP 16–24; TEMP 36.1–37.2; O2SAT 95–100; BMI 24.0; BMI 24.1
[2024-01-23] MEDS: 0.9% Normal Saline (1000mL) 1,000 ML 150 ML IV ×3 (01:51→18:30)
[2024-01-23 04:26] LABS: Absolute Lymphocyte Count 1.29 X10^3/uL (0.83-4.51); Absolute Neutrophil Count 7.1 X10^3/uL (2.0-7.7); Basophil# 0.04 X10^3/uL; Basophil% 0.4 % (0-1); Eosinophil# 0.11 X10^3/uL; Eosinophils% 1.1 % (0-5); Hematocrit 28.9 % (37-47); Hemoglobin 8.8 g/dL (12.0-15.0); Lymphocyte # 1.29 X10^3/ul (0.83-4.51); Lymphocyte % 13.4 % (19-41); Mean Corp Hgb Conc 30.4 g/dL (32-36); Mean Corpuscular Hgb 28.5 pg (27.0-32.0); Mean Corpuscular Volume 93.5 fL (81-99); Mean Platelet Vol. 10.1 fl (6.2-12.0); Monocyte# 1.04 X10^3/uL; Monocyte% 10.8 % (0-10); NRBC Flagged by Analyzer 0 % (0-5); Neutrophil # 7.07 X10^3/uL (2.7-7.7); Neutrophil % 73.6 % (47-70); Platelet Count 256 K/mm3 (150-450); RBC Distribution Width CV 13.8 % (11.6-14.6); RBC Distribution Width SD 46.5 fl (35.1-43.9); Red Blood Count 3.09 M/mm3 (4.2-5.4); White Blood Count 9.6 K/mm3 (4.4-11.0)
[2024-01-23 04:51] LABS: Anion Gap 5 (5-15); BUN 57 mg/dL (7-18); BUN/Creat Ratio 33.7 RATIO (10-20); Calcium,Total 8.4 mg/dL (8.5-10.1); Chloride 117 mmol/L (98-107); Creatinine, Serum 1.69 mg/dL (0.55-1.02); EST Glomerular Filtration Rate 31 mL/min (>60); Est Glom Filt Rate - Afr Amer 38 mL/min (>60); Estimated Creatinine Clearance 22.05 ml/min; Glucose 101 mg/dL (74-106); Potassium 3.9 mmol/L (3.5-5.1); Sodium Level 144 mmol/L (136-145)
--- NOTE | 2024-01-23 05:55 | EKG12_ITS ---
Test Reason : MORNING EKG Blood Pressure : / mmHG Vent. Rate : 078 BPM Atrial Rate : 078 BPM P-R Int : 160 ms QRS Dur : 072 ms QT Int : 420 ms P-R-T Axes : 069 004 040 degrees QTc Int : 478 ms Normal sinus rhythm Low voltage QRS Nonspecific T wave abnormality Abnormal ECG When compared with ECG of 22-DEC-2023 06:41, No significant change was found Confirmed by WISAM LEIGH, COLIN ([id number]), film editor SUPRIYA ORDONEZ ([id number]) on 01/26/2024 9:26:53 AM Referred By: CONSTANCE Confirmed By:COLIN JOEL MD
--- NOTE | 2024-01-23 07:17 | PN.HOSP_ITS ---
Reason for Visit Reason for Visit: Diagnoses Sepsis, unspecified organism (01/22/24) Acute kidney failure, unspecified (01/22/24) Urinary tract infection, site not specified (01/22/24) Subjective Subjective Patient seen much more interactive compared to the day prior. Patient responded to initial IV fluid resuscitation as well as broad-spectrum antibiotic therapy. Plan is for patient to undergo urological intervention for her bilateral hydronephrosis Objective Data Objective Data Vital Signs: Vital Signs Temp Pulse Resp BP Pulse Ox O2 Del Method 97.7 F L 78 18 120/57 L 97 Room Air 01/23/24 04:00 01/23/24 07:00 01/23/24 07:00 01/23/24 07:00 01/23/24 07:00 01/23/24 07:00 Oxygen Delivery Method Room Air Weight: 59.6 kg Body Mass Index (BMI) 24.0 Intake & Output: Intake and Output for Last 24 Hours 01/21/24 01/22/24 01/23/24 23:59 23:59 23:59 Intake Total 2400 / 2400 967.5 / 967.5 Output Total 600 / 850 925 / 925 Balance 1800 / 1550 42.5 / 42.5 Lab / Micro Data 01/23/24 04:15 01/23/24 04:15 Labs: Laboratory Results - last 24 hr 01/22/24 13:14: WBC 17.3 H, RBC 4.38, Hgb 12.2, Hct 40.8, MCV 93.2, MCH 27.9, M CHC 29.9 L, RDW Std Deviation 47.3 H, RDW Coeff of Festus 13.8, Plt Count 393, MPV 11.0, Immature Gran % (Auto) 0.600, Neut % (Auto) 85.6 H, Lymph % (Auto) 5.9 L, [place] % (Auto) 7.3, Eos % (Auto) 0.3, Baso % (Auto) 0.3, Absolute Neuts (auto) 14.8 H, Absolute Lymphs (auto) 1.03, Nucleated RBC % 0, PT 14.4, INR 1.1, APTT 37.6 H, Sodium 136, Potassium 5.1, Chloride 104, Carbon Dioxide 23.0, Anion Gap 9, BUN 80 H, Creatinine 2.74 H, Estim Creat Clear Calc 14.82, Est GFR (MDRD) Af Amer 22 L, Est GFR (MDRD) Non-Af 18 L, BUN/Creatinine Ratio 29.2 H, Glucose 256 H, Calcium 10.4 H, Total Bilirubin 0.70, AST 11 L, ALT 8 L, Alkaline Phosphatase 96, Total Protein 9.3 H, Albumin 3.2, Globulin 6.1 H, Albumin/Globulin Ratio 0.5 L 01/22/24 13:40: Lactic Acid 4.5 H* 01/22/24 15:34: Urine Color Yellow, Urine Clarity Cloudy, Urine pH 6.0, Ur Specific [place] 1.015, Urine Protein 100 H, Urine Glucose (UA) Normal, Urine Ketones Negative, Urine Occult Blood 250 H, Urine Nitrite Negative, Urine Bilirubin Negative, Urine Urobilinogen Normal, Ur Leukocyte Esterase 500 H, Urine RBC 10-25 SEEN, Urine WBC 50-100 SEEN, Ur Squamous Epith Cells 0-5 SEEN, Ur Renal Epithelial Cell 0-5 SEEN, Urine Bacteria 2+, Urine Mucus 0 SEEN 01/22/24 17:50: Lactic Acid 2.4 H* 01/22/24 21:14: POC Glucose 111 H 01/23/24 04:15: WBC 9.6, RBC 3.09 L, Hgb 8.8 L, Hct 28.9 L, MCV 93.5, MCH 28.5, MCHC 30.4 L, RDW Std Deviation 46.5 H, RDW Coeff of Festus 13.8, Plt Count 256, MPV 10.1, Immature Gran % (Auto) 0.700, Neut % (Auto) 73.6 H, Lymph % (Auto) 13.4 L, [place] % (Auto) 10.8 H, Eos % (Auto) 1.1, Baso % (Auto) 0.4, Absolute Neuts (auto) 7.1, Absolute Lymphs (auto) 1.29, Nucleated RBC % 0, Sodium 144, Potassium 3.9, Chloride 117 H, Carbon Dioxide 21.0, Anion Gap 5, BUN 57 H, Creatinine 1.69 H, Estim Creat Clear Calc 22.05, Est GFR (MDRD) Af Amer 38 L, Est GFR (MDRD) Non-Af 31 L, BUN/Creatinine Ratio 33.7 H, Glucose 101, Calcium 8.4 L Radiography Diagnostic Testing: Radiology Impression Abdomen/Pelvis CT 01/22/24 16:00 IMPRESSION: Persistent bilateral hydroureteronephrosis with perinephric and periureteral fat stranding as well as inflammatory changes surrounding the bladder. Obstruction is most likely at the bilateral UVJs. Consider IR consult for stent placement after resolution of any possible infection. Electronically Signed: Bryn Duran MD at 17:10 EDT , Physical Exam Narrative GENERAL: No apparent distress HEENT: Atraumatic; normocephalic EYES; Anicteric, Normal Conjunctiva NECK; supple, normal thyroid, RESPIRATORY: Diminished to auscultation CARDIOVASCULAR: Regular S1 S2, GI: soft, normoactive bowel sounds, : No Renal angle tenderness; EXTREMITIES: No edema, no clubbing, MUSCULOSKELETAL: no muscle wasting NEURO: Awake; no lateralizing signs. SKIN: No Rash PSYCH; Flat affect Assessment & Plan Assessment/Plan (1) YAMILEX (acute kidney injury): (2) Sepsis: (3) Urinary tract infection: PLAN: Plan Patient is a 78-year-old lady presented with progressive generalized weakness 1. Sepsis ? Secondary to urinary tract infection. Imaging studies obtained on admission persistent bilateral hydroureteronephrosis with perinephric and periureteral fat stranding as well as inflammatory changes surrounding the bladder. Obstruction is most likely at the bilateral UVJs. Patient in addition has evidence of endorgan dysfunction with worsening kidney function as well as lactic acidosis. Treatment initiated per protocol with IV fluid broad-spectrum antibiotic therapy after cultures have been sent. Response to therapy being monitored with serial lactic acid levels. ?01/23/2024; responded to initial treatment. Blood pressure remained stable. Lactic acid levels did trend down 2. Bilateral hydronephrosis ? Consult was placed to urology Case discussed with Dr. Ramirez plan is for patient to undergo urological intervention with stent placement in a.m. Patient be kept n.p.o. after midnight ??01/23/2024. Scheduled to undergo urological intervention 3. Acute kidney injury ? Superimposed on chronic kidney disease stage III. Baseline creatinine 1.5 creatinine on admission was 2.74. Do expect improvement with hydration as well as relief of patient hydronephrosis 4. Diabetes mellitus type 2 ? Patient is on glipizide as well as metformin held placed on Accu-Cheks before meals and at bedtime with sliding scale coverage as well as long-acting insulin 5. Parkinson's disease ? Patient is on carbidopa levodopa did contain 6. Hypothyroidism ? Patient is on levothyroxine home dose continued 7. Coronary artery disease ? With previous CABG patient is on antiplatelet therapy with aspirin as well as statin therapy and beta-blockers 8. Essential hypertension ? Patient antihypertensives currently being held given her presentation 9. Dyslipidemia ?Patient is on statin therapy, continued at home dose 10. Mild cognitive impairment ? Patient is on Namenda plan is to continue 11.Overactive bladder -Continue home solifenacin 12. History of TIA -Continue aspirin 13. Depression/anxiety -Continue home risperidone and Ativan 14. DVT prophylaxis -Continue subcu heparin Time spent in the patient's overall evaluation,decision-making process, review of diagnostic data, adjustment of management, discussion with other providers, nursing nursing and ancillary staff involved in patient's care documentation, 52 minutes Advance planning; did discuss with the patient regarding advanced directives as well as CODE STATUS. Did explain the various scenarios involved ( FULL CODE, DNR CCA, DNR CCA with no intubation, and DNR CC and what each meant) patient elected to remain full code. Order was placed. Time spent on discussion 16 minutes. Charges/Coding Multi Select Codes Visit Charges Visit Charges: [address] [place] [id number] Hospitalists' Procedures Procedures: 67363 Advncd Care Plan 30 Min
--- NOTE | 2024-01-23 07:20 | CASEMGMT ---
RN CM readmission note: Index admission: Admitted 12/15/23 w/concern for sepsis, elevated lactic, soft BP, YAMILEX, DI. Discharged to [facility]. Current admission: Admitted from home 01/21 w/septic shock 2/2 acute cystitis. Pt had dc'd back home from [facility] w[facility] nurse noticed signif change in catheter bag/puslike material noted. It was also noted pt has had progressive generalized weakness since returning home. SW/RN CM to follow. Scotty PHANN RN CM
[2024-01-23 08:55] LABS: Bedside Glucose 90 mg/dL (74-106)
--- NOTE | 2024-01-23 09:19 | SEPSISATNOTE ---
Sepsis Attestation Fluid Resuscitation Fluid resuscitation indicated?: Yes Fluid Resuscitation ordered: 30 ml/kg fluid bolus ordered Sepsis Note Date exam was performed: 01/22/24 Time exam was performed: 09:19 Sepsis Attestation: Sepsis re-evaluation was performed Response to fluids: Fluid responsive hypotension
--- NOTE | 2024-01-23 10:16 | CON.PCM_ITS ---
Assessment & Plan Assessment/Plan (1) Urinary tract infection: QUALIFIERS: Indwelling urinary catheter type: indwelling urethral catheter PLAN: continue antibiotics await culture results continue bladder drainage (2) YAMILEX (acute kidney injury): PLAN: cystoscopy with bilateral ureteral stent insertion fluid hydration (3) Sepsis: PLAN: supportive care antibiotics cystoscopy with bilateral stent insertion continue urethral josue (4) Bilateral hydronephrosis: PLAN: cystoscopy with bilateral ureteral stent insertion. Informed consent was obtained this morning from via phone. HPI Consult Data Date of Consult: 01/23/24 HPI Narrative Reason for Consultation: bilateral hydronephrosis HPI Narrative: LOYDA GARCIA, is a 78 F who was admitted with tachycardia, urinary tract infection and found to have bilateral hydronephrosis on imaging. She has a chronic indwelling urethral catheter. She is not very verbal this morning. I spoke with , he reports she has been drowsy recently. This is her fourth admission to the hospital with similar symptoms. REPLACED BY [facility] Medical History (Updated 01/23/24 @ 10:[address] Sanam Ramirez MD) Bilateral hydronephrosis Bacteremia due to coagulase-negative Staphylococcus CKD (chronic kidney disease), stage III Chronic anemia Hypothyroidism History of TIA (transient ischemic attack) Anxiety and depression Former tobacco use Urinary incontinence Parkinson's disease Wears dentures Diabetes Walker as ambulation aid Back pain History of heart attack CAD (coronary artery disease) HLD (hyperlipidemia) GERD (gastroesophageal reflux disease) Type II diabetes mellitus Benign essential hypertension Home Medications ?Medication ?Instructions ?Recorded ?Last Taken ?Type levothyroxine 50 mcg tablet 50 mcg PO DAILY doc orderd 08/20/19 01/17/23 History metoprolol tartrate 25 mg tablet [address] ordered 08/20/19 01/17/23 History aspirin 81 mg tablet 81 mg PO DAILY daily 05/24/22 01/17/23 History carbidopa 25 mg-levodopa 100 mg 1.[address] ordered 05/24/22 01/17/23 History tablet glipizide 2.5 mg tablet, extended 2.[address] ordered 05/24/22 01/17/23 History release 24 hr memantine 10 mg tablet [address] ordered 05/24/22 01/17/23 History risperidone 0.5 mg tablet 0.[address] ordered 05/24/22 01/17/23 History solifenacin 5 mg tablet [address] hidalgo 05/24/22 Unknown History lorazepam 0.5 mg tablet 0.5 mg PO QHS PRN anxiety #3 tabs 12/28/23 Unknown Rx atorvastatin 10 mg tablet 10 mg PO DAILY 01/22/24 Unknown History metformin 500 mg tablet 500 mg PO BID 01/22/24 Unknown History tolterodine 2 mg capsule,extended 2 mg PO DAILY 01/22/24 Unknown History release 24 hr Allergy/AdvReac Type Severity Reaction Status Date / Time No Known Allergies Allergy Verified 12/15/23 15:23 Family History Mother Heart disease Hypertension Father No problems noted. Surgical History History of ureteroscopy History of cystoscopy Hx of CABG Social History household members: spouse housing: house Smoking Status: Former smoker alcohol intake: never substance use type: does not use ROS ROS Narrative She shakes her head but is not verbalizing anything this morning. Review of Systems ROS Unobtainable: due to mental condition and due to mental status Physical Exam Const no apparent distress General Appearance: comfortable HEENT normocephalic, head/scalp atraumatic, hearing grossly normal bilaterally and external ears normal Eyes Eyes Narrative: did not open eyes this morning. Neck supple General: trachea midline Chest inspection of chest normal Resp normal respiratory effort and normal air movement Cardio regular rate GI soft to palpation and non-distended Narrative: josue catheter draining grossly purulent urine Skin no jaundice and no petechiae Lab / Micro Data 01/23/24 04:15 01/23/24 04:15 Labs: Laboratory Results - last 24 hr 01/22/24 13:14: WBC 17.3 H, RBC 4.38, Hgb 12.2, Hct 40.8, MCV 93.2, MCH 27.9, M CHC 29.9 L, RDW Std Deviation 47.3 H, RDW Coeff of Festus 13.8, Plt Count 393, MPV 11.0, Immature Gran % (Auto) 0.600, Neut % (Auto) 85.6 H, Lymph % (Auto) 5.9 L, [place] % (Auto) 7.3, Eos % (Auto) 0.3, Baso % (Auto) 0.3, Absolute Neuts (auto) 14.8 H, Absolute Lymphs (auto) 1.03, Nucleated RBC % 0, PT 14.4, INR 1.1, APTT 37.6 H, Sodium 136, Potassium 5.1, Chloride 104, Carbon Dioxide 23.0, Anion Gap 9, BUN 80 H, Creatinine 2.74 H, Estim Creat Clear Calc 14.82, Est GFR (MDRD) Af Amer 22 L, Est GFR (MDRD) Non-Af 18 L, BUN/Creatinine Ratio 29.2 H, Glucose 256 H, Calcium 10.4 H, Total Bilirubin 0.70, AST 11 L, ALT 8 L, Alkaline Phosphatase 96, Total Protein 9.3 H, Albumin 3.2, Globulin 6.1 H, Albumin/Globulin Ratio 0.5 L 01/22/24 13:40: Lactic Acid 4.5 H* 01/22/24 15:34: Urine Color Yellow, Urine Clarity Cloudy, Urine pH 6.0, Ur Specific [place] 1.015, Urine Protein 100 H, Urine Glucose (UA) Normal, Urine Ketones Negative, Urine Occult Blood 250 H, Urine Nitrite Negative, Urine Bilirubin Negative, Urine Urobilinogen Normal, Ur Leukocyte Esterase 500 H, Urine RBC 10-25 SEEN, Urine WBC 50-100 SEEN, Ur Squamous Epith Cells 0-5 SEEN, Ur Renal Epithelial Cell 0-5 SEEN, Urine Bacteria 2+, Urine Mucus 0 SEEN 01/22/24 17:50: Lactic Acid 2.4 H* 01/22/24 21:14: POC Glucose 111 H 01/23/24 04:15: WBC 9.6, RBC 3.09 L, Hgb 8.8 L, Hct 28.9 L, MCV 93.5, MCH 28.5, MCHC 30.4 L, RDW Std Deviation 46.5 H, RDW Coeff of Festus 13.8, Plt Count 256, MPV 10.1, Immature Gran % (Auto) 0.700, Neut % (Auto) 73.6 H, Lymph % (Auto) 13.4 L, [place] % (Auto) 10.8 H, Eos % (Auto) 1.1, Baso % (Auto) 0.4, Absolute Neuts (auto) 7.1, Absolute Lymphs (auto) 1.29, Nucleated RBC % 0, Sodium 144, Potassium 3.9, Chloride 117 H, Carbon Dioxide 21.0, Anion Gap 5, BUN 57 H, Creatinine 1.69 H, Estim Creat Clear Calc 22.05, Est GFR (MDRD) Af Amer 38 L, Est GFR (MDRD) Non-Af 31 L, BUN/Creatinine Ratio 33.7 H, Glucose 101, Calcium 8.4 L 01/23/24 08:14: POC Glucose 90 Micro: Microbiology 01/22/24 15:34 Urine Catheter - Josue Urine Culture - Preliminary Gram negative sanjuana Imaging Radiology Impression Abdomen/Pelvis CT 01/22/24 16:00 IMPRESSION: Persistent bilateral hydroureteronephrosis with perinephric and periureteral fat stranding as well as inflammatory changes surrounding the bladder. Obstruction is most likely at the bilateral UVJs. Consider IR consult for stent placement after resolution of any possible infection. Electronically Signed: Bryn Duran MD at 17:10 EDT ,
--- NOTE | 2024-01-23 10:30 | CASEMGMT ---
Social Work SW attempted to meet w/pt, pt is not able to stay awake long enough to have a conversation w/SW. Pt did nod in agreement for SW to lelia her . SW called pt's , message left to call SW back. SW will continue to follow. BO Jorge
--- NOTE | 2024-01-23 10:39 | PCM.OPRPT ---
Report of Operation Date of Procedure: 01/23/24 Pre-Operative Diagnosis: bilateral hydronephrosis with urinary tract infection, sepsis, acute renal injury, fecal impaction Post-Operative Diagnosis: same Surgery/Procedure Performed:: cystoscopy with bilateral ureteral stent insertion, fecal disimpaction Surgeon: Sanam Ramirez Type of Anesthesia: [facility] [place] Description of Procedure: The patient is a 78yo female with a chronic josue, admitted with sepsis and found to have bilateral hydronephrosis on imaging. We have agreed to proceed with cystoscopy and bilateral ureteral stent insertion with consent from her . She was taken to the operating room and placed on the operating room table. Anesthesia monitored the head, neck, airway, IV access and vital signs throughout the case. Once anesthesia was appropriately administered, she was placed into dorsal lithotomy position and was prepped and draped in usual sterile fashion. The cystoscope was inserted through the urethra under direct visualization into the urinary bladder. The ureteral orifices were identified. Using a 0.035 glide wire, the left ureteral orifice was intubated and the wire advanced into the renal pelvis as seen on fluouroscopy. A 6Fr x 24cm ureteral stent was inserted over the wire with good positioning in the renal pelvis and urinary bladder. This was repeated on the patient's right side. A josue catheter was inserted to straight drain. Her rectal stool burden was the manually disimpacted. She was awakened and taken to the ICU in stable condition. Grafts/Implants Used: 6 Fr x 24cm JJ stent x 2 Complications none Admit VTE Documentation VTE Present on Admission: Yes VTE Mechan Device Prophylaxis: SCD's VTE Pharm Prophylaxis ordered?: Yes
--- NOTE | 2024-01-23 11:23 | PCM.PRE.AN2 ---
ASA Classification* ASA Classification ASA Classification: 3 and E Assessment & Plan Anesthesia* Anesthesia Assessment Anesthesia Assessment: Discussed sedation and/or anesthesia options, risks, benefits, and alternatives with patient/parents/legal guardian/POA. Questions invited. The patient/parents/legal guardian/POA seems to understand and agrees to proceed with anesthesia plan. Reviewed the physical assessment, medical history, allergy history and patient home medications list prior to surgery/procedure/anesthetic and documented any changes. Performed airway and anesthesia risk assessments. Anesthesia Type Anesthesia Type: MAC History Source History Obtained from:: Patient and Chart Anesthesia Focused Assessment* Temperature: 98.7 F Pulse Rate: 65 Blood Pressure: 123/76 Respiratory Rate: 19 Pulse Ox: 100 Airway Assessment Mouth opens: 2 cm Mallampati Score: II Teeth Condition: Missing (Multiple teeth missing) Neck Range of motion (ROM): Limited ROM Pertinent Findings EKG Pertinent Findings:: December 22, 2023. Normal sinus rhythm with sinus arrhythmia. Nonspecific ST and T wave abnormalities ECHO Pertinent Findings:: June 25, 2023. Ejection fraction is 60%. Focused Labs Anesthesia Preop lab: CBC WBC 9.6 K/mm3 (4.4-11.0) 01/23/24 04:15 RBC 3.09 M/mm3 (4.2-5.4) L 01/23/24 04:15 Hgb 8.8 g/dL (12.0-15.0) L 01/23/24 04:15 Hct 28.9 % (37-47) L 01/23/24 04:15 Plt Count 256 K/mm3 (150-450) 01/23/24 04:15 CHEMISTRY Potassium 3.9 mmol/L (3.5-5.1) 01/23/24 04:15 Sodium 144 mmol/L (136-145) 01/23/24 04:15 Magnesium 1.8 mg/dL (1.6-2.6) 12/22/23 05:39 Phosphorus 3.1 mg/dL (2.5-4.9) 01/18/23 06:24 BUN 57 mg/dL (7-18) H 01/23/24 04:15 Creatinine 1.69 mg/dL (0.55-1.02) H 01/23/24 04:15 Glucose 101 mg/dL (74-106) 01/23/24 04:15 POC Glucose 129 mg/dL (74-106) H 01/23/24 15:57 TSH 0.656 uIU/mL (0.358-3.740) 12/16/23 03:55 COAG PT 14.4 SECONDS (11.7-14.9) 01/22/24 13:14 Pre-Assessment Diagnosis/Proposed Procedure Planned Operative Procedure(s): Cystoscopy. Bilateral stent placement. Fecal disimpaction Anesthesia History Anesthesia History - [employer] customer service: Anesthesia History - [employer] customer service Hx Hospitalization No 09/05/22 14:32 Any Problems With Anesthesia No 01/23/24 08:17 Cholinesterase deficiency No 01/23/24 08:17 You/Your Family Experience No 01/23/24 08:17 fever (hyperthermia) with Relationship Recent Exposure to Contagious No 01/23/24 08:17 Disease Does patient have nerve No 01/23/24 08:17 stimulator Patient instructed to have device shut off --Does patient have Pacemaker No 01/23/24 08:17 or ICD? When Was Last Pacemaker Check QUESTION #4 FULL TEXT: You/Your Family Experience fever (hyperthermia) with Anesthesia Last Oral Intake Last Oral intake: Last Oral Intake NPO since 00:00 01/23/24 08:17 Meds taken in AM with sips of No 01/23/24 08:17 water? Meds patient instructed to take am of surgery PONV PONV - [employer] customer service: PONV - [employer] customer service Female HX of Motion Sickness HX of N/V After Surgery Non-Smoker Duration of Surgery greater than 60 minutes Number of Risk Factors PONV Score Height & Weight Height & Weight: Anesthesia: Height & Weight Height 5 ft 1.81 in 01/23/24 08:17 Weight: 59.6 kg 01/23/24 08:17 Body Mass Index (BMI) 24.1 01/23/24 08:17 Respiratory Assessment Respiratory Assessment - [employer] customer service: Respiratory Tract Infection Hx - [employer] customer service Hx Respiratory Tract Infection No 01/23/24 08:17 STOP Sleep Apnea STOP Sleep Apnea - [employer] customer service: STOP Sleep Apnea - [employer] customer service Hx Hypertension No 01/23/24 13:01 Hx Sleep Apnea No 01/22/24 18:44 CPAP BIPAP Do you snore loudly (louder No 01/22/24 18:44 than talking or can be heard Do you often feel tired/ No 01/22/24 18:44 fatigued/ sleepy during daytime? Has anyone observed you stop No 01/22/24 18:44 breathing during sleep? STOP Results Negative 01/22/24 18:44 QUESTION #5 FULL TEXT : Do you snore loudly (louder than talking or can be heard through closed doors)? 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 Specify any problems Hx of Preganancy in last 3 Months Nurse Filling Out Transfusion & Questions: Date: Time: Patient unable to answer at Yes 01/22/24 18:44 this time (ie. confused, unrespo /Reproduction History /Reproductive History - [employer] customer [employer]: /Reproductive Hx- [employer] customer service Hx Now No 01/23/24 08:17 Gestational Age (in weeks): EDC: Hx Hx Para Hx Section SAB No 01/23/24 08:17 Active Medications Active Medications: Current Medications Generic Name Dose Route Start Last Admin Trade Name Freq PRN Reason Stop Dose Admin Acetaminophen 650 mg 01/22/24 18:44 01/23/24 13:06 Acetaminophen 325 Mg Tablet PO 650 mg Q6H PRN PRN Administration Pain 1-10 Or Fever>100.7 Aspirin 81 mg 01/23/24 08:00 01/23/24 12:35 Aspirin 81 Mg Tab.Chew PO 81 mg BREAKFAST LIONEL Administration Atorvastatin Calcium 10 mg 01/22/24 22:00 01/23/24 21:31 Atorvastatin Calcium 10 Mg Tablet PO 10 mg QHS LIONEL Administration Carbidopa/Levodopa 1.5 tablet 01/23/24 07:00 01/23/24 18:43 Carbidopa/Levodopa 25/100 Tablet PO 1.5 tablet TIDAC LIONEL Administration Glucagon 1 mg 01/22/24 18:44 Glucagon 1 Mg/Ml Syringe IM X1 PRN HYPOGLYCEMIA Protocol Heparin Sodium (Porcine) 5,000 unit 01/22/24 22:00 01/23/24 21:31 Heparin Injection (Vial) 5,000 Unit/Ml Vial SC 5,000 unit Q12 LIONEL Administration Dextrose 250 mls @ 0 mls/hr 01/22/24 18:44 Dextrose 10%-Water IV .Q0M PRN HYPOGLYCEMIA Protocol As Directed Cefepime HCl 2 gm/ Sodium 100 mls @ 200 mls/hr 01/22/24 22:00 01/23/24 21:31 Chloride IV 200 mls/hr QHS LIONEL Administration Insulin Glargine 10 unit 01/22/24 22:00 01/23/24 21:27 Insulin Glargine-Yfgn 100 Unit/Ml Pen SC Not Given QHS [facility] Protocol Insulin Human Lispro 0 unit 01/22/24 22:00 01/23/24 21:27 Insulin Lispro 100 Unit/Ml Insuln.Pen SC Not Given ACHS [facility] Protocol Levothyroxine Sodium 50 mcg 01/23/24 06:00 01/23/24 05:36 Levothyroxine 50 Mcg Tablet PO Not Given 0600 [facility] Lorazepam 0.5 - 1 mg 01/22/24 18:44 Lorazepam 0.5 Mg Tablet PO QHS PRN anxiety Melatonin 3 mg 01/22/24 18:44 Melatonin 3 Mg Tablet PO QHS PRN PRN INSOMNIA Memantine 10 mg 01/22/24 22:00 01/23/24 21:31 Memantine Hydrochloride 10 Mg Tablet PO 10 mg BID LIONEL Administration Ondansetron HCl 4 mg 01/22/24 18:44 Ondansetron 4 Mg/2 Ml Vial IV Q8H PRN PRN NAUSEA/VOMITING Polyethylene Glycol 17 gm 01/23/24 15:06 01/23/24 18:35 Polyethylene Glycol 3350 17 Gm Packet PO 17 gm DAILY LIONEL Administration Risperidone 0.5 mg 01/22/24 22:00 01/23/24 21:31 Risperidone 0.5 Mg Tablet PO 0.5 mg BID LIONEL Administration Protocol Senna/Docusate Sodium 2 tablet 01/23/24 15:06 01/23/24 21:31 Senna/Docusate Sodium 1 Tablet PO 2 tablet BID LIONEL Administration Sodium Chloride 10 - 40 ml 01/22/24 18:55 0.9% Saline Lock 10 Ml Syringe IV UD PRN SALINE FLUSH Tolterodine Tartrate 2 mg 01/23/24 10:00 01/23/24 12:35 Tolterodine Tartrate 2 Mg Cap.Sa PO 2 mg DAILY LIONEL Administration PFSH Medical History Bilateral hydronephrosis Bacteremia due to coagulase-negative Staphylococcus CKD (chronic kidney disease), stage III Chronic anemia Hypothyroidism History of TIA (transient ischemic attack) Anxiety and depression Former tobacco use Urinary incontinence Parkinson's disease Wears dentures Diabetes Walker as ambulation aid Back pain History of heart attack CAD (coronary artery disease) HLD (hyperlipidemia) GERD (gastroesophageal reflux disease) Type II diabetes mellitus Benign essential hypertension Home Medications ?Medication ?Instructions ?Recorded ?Last Taken ?Type levothyroxine 50 mcg tablet 50 mcg PO DAILY doc orderd 08/20/19 01/17/23 History metoprolol tartrate 25 mg tablet [address] ordered 08/20/19 01/17/23 History aspirin 81 mg tablet 81 mg PO DAILY daily 05/24/22 01/17/23 History carbidopa 25 mg-levodopa 100 mg 1.[address] ordered 05/24/22 01/17/23 History tablet glipizide 2.5 mg tablet, extended 2.[address] ordered 05/24/22 01/17/23 History release 24 hr memantine 10 mg tablet [address] ordered 05/24/22 01/17/23 History risperidone 0.5 mg tablet 0.[address] ordered 05/24/22 01/17/23 History solifenacin 5 mg tablet [address] ordered 05/24/22 Unknown History lorazepam 0.5 mg tablet 0.5 mg PO QHS PRN anxiety #3 tabs 12/28/23 Unknown Rx atorvastatin 10 mg tablet 10 mg PO DAILY 01/22/24 Unknown History metformin 500 mg tablet 500 mg PO BID 01/22/24 Unknown History tolterodine 2 mg capsule,extended 2 mg PO DAILY 01/22/24 Unknown History release 24 hr Allergy/AdvReac Type Severity Reaction Status Date / Time No Known Allergies Allergy Verified 12/15/23 15:23 Family History Mother Heart disease Hypertension Father No problems noted. Surgical History History of ureteroscopy History of cystoscopy Hx of CABG Social History household members: spouse housing: house Smoking Status: Former smoker alcohol intake: never substance use type: does not use Review of Systems (Anesthesia) ROS Narrative System reviewed and no additional complaints, except as documented.
--- NOTE | 2024-01-23 11:25 | NURSING ---
Patient left unit to surgery
[2024-01-23 11:39] LABS: Bedside Glucose 107 mg/dL (74-106)
--- NOTE | 2024-01-23 12:16 | PCM.POST.ANE ---
Anesthesia: Postop Eval I Current Vital Signs Temperature: 98.7 F Pulse Rate: 65 Blood Pressure: 123/76 Respiratory Rate: 19 Pulse Ox: 100 Oxygen Delivery Method: Room Air Assessment Airway patent: Yes Spontaneous unlabored respirations: Yes Mental status: Awake and Calm nausea: No Vomiting: No Anesthesia Complication: No Fluid Hydration Crystalloid volume administer (ml): 400 Total IV fluid infused: 400 Progress Note Anesthesia document: Postop Eval 1 completed: Yes
--- NOTE | 2024-01-23 12:22 | CASEMGMT ---
Social Work Pt's Jeet called VENESSA back. SW inquired how things are going at home and anticipated discharge plan. Pt's explains pt has been home from [facility] for about one week. She was there for 20 days, he states they cannot afford the copay so pt came home. They were set up w/[facility], and he states when the RN came out to see her said she was concerned pt had sepsis, so pt came to the emergency room. Pt had the catheter in at home. Pt's states pt was able to stand for just a few seconds, he really needs pt to be able to stand and walk a little in order to go home. He states she needs to be able to get to the bathroom on her own. Jeet explains he has his own health issues and cannot help her to get up. Pt's is not certain what the plan will be when pt is ready to leave the hospital. We spoke at length about insurance. Pt's states he applied for Medicaid and was initially told was over income, but then was told may qualify for a program for longterm coverage. He has not been able to follow up w/this however. He is agreeable to speak w/Odalis from [employer] to help him look into this--VENESSA sent Odalis an email asking her to follow up. Jeet is very familiar w/his insurance benefits. He is not certain if [employer] would cover another 20 days for a SNF stay or not, he states they have not been in this situation before. He states he signed up for a secondary insurance to his [employer] called [facility], and they help cover the ambulance and copay costs for the hospital stay. VENESSA did create in [facility] a list of senior living facilities in network w/insurance, in pt's preferred geographic area and complete w/quality and resource use data. SW offered to leave it in the room or have SW give the list to him on Thursday, pt's ambivalent. SW let him know will have SW give him the list Thursday, explained it will be the same list that he received last time. Pt's states understanding. Plan at this point is to be determined. SW will follow up w/ Thursday once pt has had the planned procedure today and has had PT/OT. Whether or not pt and are agreeable to SNF may be influenced by cost as well, whether or not pt qualifies for Medicaid and whether or not pt will be using copay days for SNF. BO Jorge
[2024-01-23] MEDS: Carbidopa/Levodopa 25/100 Tablet PO ×2 (12:35→18:43)
[2024-01-23] MEDS: Aspirin 81 MG TAB.CHEW PO (12:35)
[2024-01-23] MEDS: Tolterodine Tartrate 2 MG CAP.SA PO (12:35)
[2024-01-23] MEDS: RisperiDONE 0.5 MG Tablet PO ×2 (12:36→21:31)
[2024-01-23] MEDS: Memantine Hydrochloride 10 MG Tablet PO ×2 (12:36→21:31)
[2024-01-23] MEDS: Acetaminophen 325 MG Tablet 650 MG PO (13:06)
[2024-01-23 16:17] LABS: Bedside Glucose 129 mg/dL (74-106)
[2024-01-23] MEDS: Senna/Docusate Sodium 1 Tablet 2 TABLET PO ×2 (18:34→21:31)
[2024-01-23] MEDS: Polyethylene Glycol 3350 17 GM PACKET PO (18:35)
[2024-01-23] MEDS: Cefepime HCl 2 GM in 0.9% Normal Saline (100mL MB+) 100 ML IV (21:31)
[2024-01-23] MEDS: Atorvastatin Calcium 10 MG Tablet PO (21:31)
[2024-01-23] MEDS: Heparin Injection (Vial) 5,000 UNIT/ML VIAL 5000 UNIT SC (21:31)
--- NOTE | 2024-01-23 22:03 | PCM.POSTANE2 ---
Anesthesia Postop Eval I Sum Postop Eval Completion status Anesthesia document: Postop Eval 1 completed: Yes Anesthesia Postop Eval I Summary Anesthesia Postop Eval I Summary: Anesthesia Postop Eval I: Assessment Summary Airway patent Yes 01/23/24 21:44 Spontaneous unlabored Yes 01/23/24 21:44 respirations Mental status Awake,Calm 01/23/24 21:44 nausea No 01/23/24 21:44 Vomiting No 01/23/24 21:44 Anesthesia Postop Eval I: Fluid Summary Crystalloid volume administer 400 01/23/24 21:44 (ml) Colloids volume administered ( ml) Blood Product volume administered (ml) Total IV fluid infused 400 01/23/24 21:44 Anesthesia Postop Eval I: Summary Notes Anesthesia Complication No 01/23/24 21:44 Anesthesia Complication Comment: Post-operative progress note Anesthesia: Postop Eval II Evaluation Mental status: Awake Pain Level: 2 (Patient has back pain.) nausea: No Vomiting: No Complications Anesthesia Complication: No
[2024-01-24] VITALS (7 sets, daily range): BP systolic 93–127; BP diastolic 55–66; PULSE 64–90; RESP 16–18; TEMP 36.6–36.8; O2SAT 94–98; BMI 24.7
[2024-01-24 00:18] LABS: Bedside Glucose 106 mg/dL (74-106)
[2024-01-24] MEDS: Carbidopa/Levodopa 25/100 Tablet PO ×3 (06:44→17:32)
--- NOTE | 2024-01-24 07:03 | PCM.PN.HOSP ---
Reason for Visit Reason for Visit: Diagnoses Sepsis, unspecified organism (01/23/24) Unspecified hydronephrosis (01/23/24) Acute kidney failure, unspecified (01/23/24) Urinary tract infection, site not specified (01/23/24) Subjective Subjective Patient underwent bilateral ureteral stent placement as a result of bilateral hydronephrosis. Also did undergo disimpaction for constipation the day prior Objective Data Objective Data Vital Signs: Vital Signs Temp Pulse Resp BP Pulse Ox O2 Del Method 97.9 F 65 18 109/61 98 Room Air 01/24/24 06:00 01/24/24 06:00 01/24/24 06:00 01/24/24 06:00 01/24/24 06:00 01/24/24 06:00 Oxygen Delivery Method Room Air Weight: 60.9 kg Body Mass Index (BMI) 24.7 Intake & Output: Intake and Output for Last 24 Hours 01/22/24 01/23/24 01/24/24 23:59 23:59 23:59 Intake Total 2400 / 2400 3267.5 / 3267.5 1000 / 1000 Output Total 600 / 850 1175 / 1175 Balance 1800 / 1550 2092.5 / 2092.5 1000 / 1000 Lab / Micro Data 01/24/24 06:25 01/24/24 06:25 Labs: Laboratory Results - last 24 hr 01/23/24 08:14: POC Glucose 90 01/23/24 11:18: POC Glucose 107 H 01/23/24 15:57: POC Glucose 129 H 01/23/24 21:26: POC Glucose 106 Micro: Microbiology 01/22/24 15:34 Urine Catheter - No Urine Culture - Final Pseudomonas aeruginosa Physical Exam Narrative GENERAL: No apparent distress HEENT: Atraumatic; normocephalic EYES; Anicteric, Normal Conjunctiva NECK; supple, normal thyroid, RESPIRATORY: Diminished to auscultation CARDIOVASCULAR: Regular S1 S2, GI: soft, normoactive bowel sounds, : No Renal angle tenderness; EXTREMITIES: No edema, no clubbing, MUSCULOSKELETAL: no muscle wasting NEURO: Awake; no lateralizing signs. SKIN: No Rash PSYCH; Flat affect Assessment & Plan Assessment/Plan (1) YAMILEX (acute kidney injury): (2) Sepsis: (3) Urinary tract infection: QUALIFIERS: Indwelling urinary catheter type: indwelling urethral catheter PLAN: Plan Patient is a 78-year-old lady presented with progressive generalized weakness 1. Sepsis ? Secondary to urinary tract infection with Pseudomonas. Imaging studies obtained on admission persistent bilateral hydroureteronephrosis with perinephric and periureteral fat stranding as well as inflammatory changes surrounding the bladder. Obstruction is most likely at the bilateral UVJs. Patient in addition has evidence of endorgan dysfunction with worsening kidney function as well as lactic acidosis. Treatment initiated per protocol with IV fluid broad-spectrum antibiotic therapy after cultures have been sent. Response to therapy being monitored with serial lactic acid levels. ?01/23/2024; responded to initial treatment. Blood pressure remained stable. Lactic acid levels did trend down ? 01/24/2024; urine cultures came back positive for Pseudomonas 25-50 K CFU per mL 2. Bilateral hydronephrosis ? Consult was placed to urology Case discussed with Dr. Ramirez plan is for patient to undergo urological intervention with stent placement in a.m. Patient be kept n.p.o. after midnight ??01/23/2024. Scheduled to undergo urological intervention ? 01/24/2024; patient underwent ystoscopy with bilateral ureteral stent insertion, fecal disimpaction on 01/23/2024 3. Acute kidney injury ? Superimposed on chronic kidney disease stage III. Baseline creatinine 1.5 creatinine on admission was 2.74. Do expect improvement with hydration as well as relief of patient hydronephrosis 4. Diabetes mellitus type 2 ? Patient is on glipizide as well as metformin held placed on Accu-Cheks before meals and at bedtime with sliding scale coverage as well as long-acting insulin 5. Parkinson's disease ? Patient is on carbidopa levodopa did contain 6. Hypothyroidism ? Patient is on levothyroxine home dose continued 7. Coronary artery disease ? With previous CABG patient is on antiplatelet therapy with aspirin as well as statin therapy and beta-blockers 8. Essential hypertension ? Patient antihypertensives currently being held given her presentation 9. Dyslipidemia ?Patient is on statin therapy, continued at home dose 10. Mild cognitive impairment ? Patient is on Namenda plan is to continue 11.Overactive bladder -Continue home solifenacin 12. History of TIA -Continue aspirin 13. Depression/anxiety -Continue home risperidone and Ativan 14. DVT prophylaxis -Continue subcu heparin 15. Constipation ? Patient underwent fecal disimpaction under anesthesia. Subsequently started on MiraLAX daily in addition to Senokot Time spent in the patient's overall evaluation,decision-making process, review of diagnostic data, adjustment of management, discussion with other providers, nursing nursing and ancillary staff involved in patient's care documentation, 36 minutes Charges/Coding Visit Charges Inpatient E&M: 47977 [facility] Hosp L2
[2024-01-24 07:20] LABS: Absolute Lymphocyte Count 1.06 X10^3/uL (0.83-4.51); Absolute Neutrophil Count 6.1 X10^3/uL (2.0-7.7); Basophil# 0.03 X10^3/uL; Basophil% 0.4 % (0-1); Eosinophil# 0.28 X10^3/uL; Eosinophils% 3.3 % (0-5); Hematocrit 29.5 % (37-47); Hemoglobin 8.7 g/dL (12.0-15.0); Lymphocyte # 1.06 X10^3/ul (0.83-4.51); Lymphocyte % 12.7 % (19-41); Mean Corp Hgb Conc 29.5 g/dL (32-36); Mean Corpuscular Hgb 27.8 pg (27.0-32.0); Mean Corpuscular Volume 94.2 fL (81-99); Mean Platelet Vol. 10.6 fl (6.2-12.0); Monocyte# 0.81 X10^3/uL; Monocyte% 9.7 % (0-10); NRBC Flagged by Analyzer 0 % (0-5); Neutrophil # 6.13 X10^3/uL (2.7-7.7); Neutrophil % 73.2 % (47-70); Platelet Count 269 K/mm3 (150-450); RBC Distribution Width CV 14.1 % (11.6-14.6); Red Blood Count 3.13 M/mm3 (4.2-5.4); White Blood Count 8.4 K/mm3 (4.4-11.0)
[2024-01-24 07:40] LABS: Anion Gap 6 (5-15); BUN 33 mg/dL (7-18); BUN/Creat Ratio 22.9 RATIO (10-20); Calcium,Total 8.8 mg/dL (8.5-10.1); Chloride 118 mmol/L (98-107); Creatinine, Serum 1.44 mg/dL (0.55-1.02); EST Glomerular Filtration Rate 37 mL/min (>60); Est Glom Filt Rate - Afr Amer 45 mL/min (>60); Estimated Creatinine Clearance 27.39 ml/min; Glucose 114 mg/dL (74-106); Sodium Level 142 mmol/L (136-145)
[2024-01-24] MEDS: Polyethylene Glycol 3350 17 GM PACKET PO (08:57)
[2024-01-24] MEDS: Senna/Docusate Sodium 1 Tablet 2 TABLET PO ×2 (08:58→20:08)
[2024-01-24] MEDS: RisperiDONE 0.5 MG Tablet PO ×2 (08:58→20:08)
[2024-01-24] MEDS: Memantine Hydrochloride 10 MG Tablet PO ×2 (08:58→20:07)
[2024-01-24] MEDS: Heparin Injection (Vial) 5,000 UNIT/ML VIAL 5000 UNIT SC ×2 (08:59→20:06)
[2024-01-24] MEDS: Aspirin 81 MG TAB.CHEW PO (09:00)
[2024-01-24] MEDS: Tolterodine Tartrate 2 MG CAP.SA PO (09:00)
[2024-01-24] MEDS: Acetaminophen 325 MG Tablet 650 MG PO ×2 (09:08→20:08)
[2024-01-24 11:55] LABS: Bedside Glucose 134 mg/dL (74-106)
[2024-01-24 16:32] LABS: Bedside Glucose 122 mg/dL (74-106)
[2024-01-24] MEDS: 0.9% Saline Lock 10 ML Syringe IV (20:06)
[2024-01-24] MEDS: Cefepime HCl 2 GM in 0.9% Normal Saline (100mL MB+) 100 ML IV (20:07)
[2024-01-24] MEDS: Atorvastatin Calcium 10 MG Tablet PO (20:07)
[2024-01-24] MEDS: MELATONIN 3 MG TABLET PO (20:08)
[2024-01-24 20:36] LABS: Bedside Glucose 195 mg/dL (74-106)
[2024-01-24] MEDS: Nystatin Powder 15gm Bottle 1 APPLIC TOPICAL (21:47)
[2024-01-25 02:57] VITALS: BP 133/68; PULSE 69; RESP 16; TEMP 36.3; O2SAT 99
[2024-01-25 02:58] VITALS: BMI 24.1
[2024-01-25] MEDS: Carbidopa/Levodopa 25/100 Tablet PO ×3 (05:55→17:54)
[2024-01-25] MEDS: Levothyroxine 50 MCG Tablet PO (05:55)
[2024-01-25] MEDS: Acetaminophen 325 MG Tablet 650 MG PO ×2 (05:56→11:56)
[2024-01-25 06:17] LABS: Bedside Glucose 149 mg/dL (74-106)
[2024-01-25 07:19] LABS: Absolute Lymphocyte Count 1.08 X10^3/uL (0.83-4.51); Absolute Neutrophil Count 8.9 X10^3/uL (2.0-7.7); Basophil# 0.04 X10^3/uL; Basophil% 0.4 % (0-1); Eosinophil# 0.21 X10^3/uL; Eosinophils% 1.9 % (0-5); Hemoglobin 8.9 g/dL (12.0-15.0); Lymphocyte # 1.08 X10^3/ul (0.83-4.51); Lymphocyte % 9.5 % (19-41); Mean Corp Hgb Conc 30.7 g/dL (32-36); Mean Corpuscular Hgb 28.1 pg (27.0-32.0); Mean Corpuscular Volume 91.5 fL (81-99); Mean Platelet Vol. 10.3 fl (6.2-12.0); Monocyte# 0.95 X10^3/uL; Monocyte% 8.4 % (0-10); NRBC Flagged by Analyzer 0 % (0-5); Neutrophil # 8.94 X10^3/uL (2.7-7.7); Neutrophil % 78.8 % (47-70); Platelet Count 273 K/mm3 (150-450); RBC Distribution Width CV 13.6 % (11.6-14.6); Red Blood Count 3.17 M/mm3 (4.2-5.4); White Blood Count 11.3 K/mm3 (4.4-11.0)
[2024-01-25 08:15] VITALS: BP 132/75; PULSE 93; RESP 18; TEMP 36.3; O2SAT 99
[2024-01-25] MEDS: Heparin Injection (Vial) 5,000 UNIT/ML VIAL 5000 UNIT SC ×2 (08:16→21:25)
[2024-01-25] MEDS: Polyethylene Glycol 3350 17 GM PACKET PO (08:16)
[2024-01-25] MEDS: Tolterodine Tartrate 2 MG CAP.SA PO (08:16)
[2024-01-25] MEDS: Aspirin 81 MG TAB.CHEW PO (08:16)
[2024-01-25] MEDS: Memantine Hydrochloride 10 MG Tablet PO ×2 (08:16→21:34)
[2024-01-25] MEDS: Nystatin Powder 15gm Bottle 1 APPLIC TOPICAL ×2 (08:16→21:26)
[2024-01-25] MEDS: Senna/Docusate Sodium 1 Tablet 2 TABLET PO ×2 (08:16→21:33)
[2024-01-25] MEDS: RisperiDONE 0.5 MG Tablet PO ×2 (08:16→21:34)
[2024-01-25 10:49] LABS: Anion Gap 8 (5-15); BUN 25 mg/dL (7-18); BUN/Creat Ratio 19.4 RATIO (10-20); Chloride 114 mmol/L (98-107); Creatinine, Serum 1.29 mg/dL (0.55-1.02); EST Glomerular Filtration Rate 43 mL/min (>60); Est Glom Filt Rate - Afr Amer 51 mL/min (>60); Estimated Creatinine Clearance 30.25 ml/min; Glucose 176 mg/dL (74-106); Sodium Level 139 mmol/L (136-145)
[2024-01-25 12:06] LABS: Bedside Glucose 154 mg/dL (74-106)
--- NOTE | 2024-01-25 13:56 | CASEMGMT ---
Addendum entered by Deya Cardoso 01/25/24 15:21: Social Work- SW attempted multiple times to meet with pt spouse in room; no present. SW called and left a voicemail requesting a call back. [employer] rep Odalis reports that she also called and left a voicemail. ALEXUS Paredes Original Note: Social Work- SW called [employer] ref #: [id number] to get an accurate record of pt benefits. Pt has $10 co-pay day 1-20, $203 co-pay day 21-100. Pt days are per calendar year. Pt max OOP is $3900 before pt will have 100% coverage. Pt has already spent $1785 OOP. VENESSA followed up with Odalis on medicaid LTC; she will look at the case and get back to VENESSA. ALEXUS Paredes
[2024-01-25 14:09] VITALS: BP 109/68; PULSE 73; RESP 18; TEMP 36.7; O2SAT 98
--- NOTE | 2024-01-25 14:31 | CASEMGMT ---
Addendum entered by Gia Cano 01/25/24 14:42: Received confirmation from [facility], pt is active with SN, PT and OT services. Original Note: Message to [facility] to confirm disciplines active with pt. Made aware pt dc disp is undetermined at this time.
--- NOTE | 2024-01-25 16:09 | CASEMGMT ---
Social Work- SW met with pt who states that she is doing better today and that therapy went better. SW confirmed via therapy notes that pt did show improvement. Pt reports that she is unaware if pt spouse will be in tonight. SW again attempted to call pt spouse and left a voicemail. SW will remain available to follow. ALEXUS Paredes
[2024-01-25 17:45] LABS: Bedside Glucose 128 mg/dL (74-106)
--- NOTE | 2024-01-25 18:07 | PN.HOSP_ITS ---
Reason for Visit Reason for Visit: Diagnoses Sepsis, unspecified organism (01/22/24) Unspecified hydronephrosis (01/22/24) Acute kidney failure, unspecified (01/22/24) Urinary tract infection, site not specified (01/22/24) Subjective Subjective Has a little bit of stomach discomfort at times, No in place, has not had BM but was disimpacted when she had her ureteral stents placed, no chest pain or shortness of breath, still feels somewhat weak and unwell overall Objective Data Objective Data Vital Signs: Vital Signs Temp Pulse Resp BP Pulse Ox O2 Del Method 98.1 F 73 18 109/68 98 Room Air 01/25/24 14:09 01/25/24 14:09 01/25/24 14:09 01/25/24 14:09 01/25/24 14:09 01/25/24 14:09 Oxygen Delivery Method Room Air Weight: 59.466 kg Body Mass Index (BMI) 24.1 Intake & Output: Intake and Output for Last 24 Hours 01/23/24 01/24/24 01/25/24 23:59 23:59 23:59 Intake Total 3267.5 / 3267.5 1999 Output Total 1175 / 1175 1050 / 1450 1100 / 1100 Balance 2092.5 / 2092.5 950 / 550 -1100 / -1100 Lab / Micro Data 01/25/24 06:49 01/25/24 06:49 Labs: Laboratory Results - last 24 hr 01/24/24 20:04: POC Glucose 195 H 01/25/24 05:54: POC Glucose 149 H 01/25/24 06:49: WBC 11.3 H, RBC 3.17 L, Hgb 8.9 L, Hct 29.0 L, MCV 91.5, MCH 28.1, MCHC 30.7 L, RDW Std Deviation 46.0 H, RDW Coeff of Festus 13.6, Plt Count 273, MPV 10.3, Immature Gran % (Auto) 1.000 H, Neut % (Auto) 78.8 H, Lymph % (Auto) 9.5 L, [place] % (Auto) 8.4, Eos % (Auto) 1.9, Baso % (Auto) 0.4, Absolute Neuts (auto) 8.9 H, Absolute Lymphs (auto) 1.08, Nucleated RBC % 0, Sodium 139, Potassium 4.0, Chloride 114 H, Carbon Dioxide 18.0 L, Anion Gap 8, BUN 25 H, C reatinine 1.29 H, Estim Creat Clear Calc 30.25, Est GFR (MDRD) Af Amer 51 L, Est GFR (MDRD) Non-Af 43 L, BUN/Creatinine Ratio 19.4, Glucose 176 H, Calcium 9.0 01/25/24 11:47: POC Glucose 154 H 01/25/24 17:26: POC Glucose 128 H Micro: Microbiology 01/22/24 13:40 Blood Culture (Wb) - Anticubital Left Blood Culture - Preliminary No growth in 48 hours. 01/22/24 15:34 Urine Catheter - No Urine Culture - Final Pseudomonas aeruginosa Physical Exam Narrative General: Alert, oriented, no apparent distress HEENT: Atraumatic, normocephalic Eyes: Anicteric, normal conjunctiva, extraocular movements grossly intact Neck: Supple Respiratory: Clear to auscultation bilaterally, normal respiratory effort Cardiovascular: Regular rate and rhythm GI: Soft, nondistended, little bit tender on deep palpation without rebound, guarding, rigidity Extremities: No edema Musculoskeletal: Moving all extremities Neuro: No overt focal neurological deficits Skin: No rashes appreciated Psych: Cooperative Assessment & Plan Assessment/Plan (1) Bilateral hydronephrosis: (2) YAMILEX (acute kidney injury): (3) Sepsis: (4) Urinary tract infection: QUALIFIERS: Indwelling urinary catheter type: indwelling urethral catheter PLAN: Plan Patient is a 78-year-old lady presented with progressive generalized weakness 1. Sepsis ? Secondary to urinary tract infection with Pseudomonas. Imaging studies obtained on admission persistent bilateral hydroureteronephrosis with perinephric and periureteral fat stranding as well as inflammatory changes surrounding the bladder. Obstruction is most likely at the bilateral UVJs. Patient in addition has evidence of endorgan dysfunction with worsening kidney function as well as lactic acidosis. Treatment initiated per protocol with IV fluid broad-spectrum antibiotic therapy after cultures have been sent. Response to therapy being monitored with serial lactic acid levels. ?01/23/2024; responded to initial treatment. Blood pressure remained stable. Lactic acid levels did trend down ? 01/24/2024; urine cultures came back positive for Pseudomonas 25-50 K CFU per mL -01/24: Patient remains on cefepime and has been improving 2. Bilateral hydronephrosis ? Consult was placed to urology Case discussed with Dr. Ramirez plan is for patient to undergo urological intervention with stent placement in a.m. Patient be kept n.p.o. after midnight ??01/23/2024. Scheduled to undergo urological intervention ? 01/24/2024; patient underwent ystoscopy with bilateral ureteral stent insertion, fecal disimpaction on 01/23/2024 -01/24: Patient status post cystoscopy and ureteral stent insertion, also has No catheter still in place 3. Acute kidney injury ? Superimposed on chronic kidney disease stage III. Baseline creatinine 1.5 creatinine on admission was 2.74. Do expect improvement with hydration as well as relief of patient hydronephrosis -01/24: Continues to improve, creatinine has down trended to baseline and today was 1.29 4. Diabetes mellitus type 2 ? Patient is on glipizide as well as metformin held placed on Accu-Cheks before meals and at bedtime with sliding scale coverage as well as long-acting insulin -01/24: Glucose has been in 100s today. Continue glargine nightly and sliding scale insulin 5. Parkinson's disease ? Patient is on carbidopa levodopa did contain -01/24: Does still have some baseline tremor, continue carbidopa-levodopa 6. Hypothyroidism ? Patient is on levothyroxine home dose continued -01/24: Most recent TSH 12/16/2023 0.656, continue home Synthroid 7. Coronary artery disease ? With previous CABG patient is on antiplatelet therapy with aspirin as well as statin therapy and beta-blockers -01/24: Patient on aspirin, statin, resume home beta-elen with holding parameters 8. Essential hypertension ? Patient antihypertensives currently being held given her presentation -01/24: Resuming metoprolol at lower dose with holding parameters, increase as patient tolerates 10. Mild cognitive impairment ? Patient is on Namenda plan is to continue -01/24: Continue Namenda, no acute complaints, continue Risperdal as well 11.Overactive bladder -Continue home solifenacin -01/24: Presently has No in place 12. History of TIA -Continue aspirin -01/24: Continuing aspirin and statin 13. Depression/anxiety -Continue home risperidone and Ativan -01/24: Patient did not report any acute complaints 15. Constipation ? Patient underwent fecal disimpaction under anesthesia. Subsequently started on MiraLAX daily in addition to Senokot -01/24: Has not had bowel movement but was only disimpacted 2 days ago, continue bowel regimen DVT prophylaxis -Continue subcu heparin Time spent in the patient's overall evaluation,decision-making process, review of diagnostic data, adjustment of management, discussion with other providers, nursing nursing and ancillary staff involved in patient's care documentation, 37 minutes Charges/Coding Visit Charges Inpatient E&M: 55093 Subs Hosp L2
[2024-01-25 21:18] VITALS: BP 123/76; PULSE 77; RESP 16; TEMP 36.4; O2SAT 98
[2024-01-25] MEDS: Cefepime HCl 2 GM in 0.9% Normal Saline (100mL MB+) 100 ML IV (21:27)
[2024-01-25] MEDS: 0.9% Saline Lock 10 ML Syringe IV (21:27)
[2024-01-25 21:32] VITALS: BP 123/76; PULSE 77
[2024-01-25] MEDS: Metoprolol Tartrate 25 MG Tablet 12.5 MG PO (21:32)
[2024-01-25] MEDS: Atorvastatin Calcium 10 MG Tablet PO (21:33)
[2024-01-25 22:12] LABS: Bedside Glucose 141 mg/dL (74-106)
[2024-01-26 03:20] VITALS: BP 98/67; PULSE 66; RESP 16; TEMP 36.3; O2SAT 97
[2024-01-26 03:29] VITALS: BMI 24.1
[2024-01-26] MEDS: Carbidopa/Levodopa 25/100 Tablet PO ×3 (06:15→17:20)
[2024-01-26] MEDS: Levothyroxine 50 MCG Tablet PO (06:15)
[2024-01-26 06:42] LABS: Bedside Glucose 129 mg/dL (74-106)
[2024-01-26 06:58] LABS: Absolute Lymphocyte Count 1.95 X10^3/uL (0.83-4.51); Absolute Neutrophil Count 6.9 X10^3/uL (2.0-7.7); Basophil# 0.06 X10^3/uL; Basophil% 0.6 % (0-1); Eosinophils% 2.9 % (0-5); Hematocrit 31.9 % (37-47); Hemoglobin 9.7 g/dL (12.0-15.0); Lymphocyte # 1.95 X10^3/ul (0.83-4.51); Lymphocyte % 18.8 % (19-41); Mean Corp Hgb Conc 30.4 g/dL (32-36); Mean Corpuscular Hgb 27.8 pg (27.0-32.0); Mean Corpuscular Volume 91.4 fL (81-99); Mean Platelet Vol. 9.9 fl (6.2-12.0); Monocyte# 0.91 X10^3/uL; Monocyte% 8.8 % (0-10); NRBC Flagged by Analyzer 0 % (0-5); Neutrophil # 6.93 X10^3/uL (2.7-7.7); Neutrophil % 66.9 % (47-70); Platelet Count 319 K/mm3 (150-450); RBC Distribution Width CV 13.8 % (11.6-14.6); RBC Distribution Width SD 46.6 fl (35.1-43.9); Red Blood Count 3.49 M/mm3 (4.2-5.4); White Blood Count 10.4 K/mm3 (4.4-11.0)
[2024-01-26 07:38] LABS: Anion Gap 7 (5-15); BUN 21 mg/dL (7-18); BUN/Creat Ratio 15.9 RATIO (10-20); Calcium,Total 9.2 mg/dL (8.5-10.1); Chloride 112 mmol/L (98-107); Creatinine, Serum 1.32 mg/dL (0.55-1.02); EST Glomerular Filtration Rate 41 mL/min (>60); Est Glom Filt Rate - Afr Amer 50 mL/min (>60); Estimated Creatinine Clearance 29.56 ml/min; Glucose 130 mg/dL (74-106); Potassium 3.8 mmol/L (3.5-5.1); Sodium Level 142 mmol/L (136-145)
--- NOTE | 2024-01-26 08:05 | PN.URO_ITS ---
Subjective Subjective Much more talkative today, finished therapy and is sitting up in chair. Her main complaint this am is low back pain. No nausea. Still no bowel movement. She is not interested in an enema. We discussed that her pain is likely a combination of issues including constipation and stents and catheter. Objective Data Objective Data Vital Signs: Vital Signs Temp Pulse Resp BP Pulse Ox O2 Del Method 97.3 F L 66 16 98/67 97 Room Air 01/26/24 03:20 01/26/24 03:20 01/26/24 03:20 01/26/24 03:20 01/26/24 03:20 01/26/24 03:20 Oxygen Delivery Method Room Air Weight: 59.46 kg Body Mass Index (BMI) 24.1 Intake & Output: Intake and Output for Last 24 Hours 01/24/24 01/25/24 01/26/24 23:59 23:59 23:59 Intake Total 2000 / 2000 100 / 100 Output Total 1050 / 1450 1600 / 1600 600 / 600 Balance 950 / 550 -1500 / -1500 -600 / -600 Lab / Micro Data 01/26/24 06:34 01/26/24 06:34 Labs: Laboratory Results - last 24 hr 01/25/24 06:49: Sodium 139, Potassium 4.0, Chloride 114 H, Carbon Dioxide 18.0 L , Anion Gap 8, BUN 25 H, Creatinine 1.29 H, Estim Creat Clear Calc 30.25, Est GFR (MDRD) Af Amer 51 L, Est GFR (MDRD) Non-Af 43 L, BUN/Creatinine Ratio 19.4, Glucose 176 H, Calcium 9.0 01/25/24 11:47: POC Glucose 154 H 01/25/24 17:26: POC Glucose 128 H 01/25/24 21:24: POC Glucose 141 H 01/26/24 06:17: POC Glucose 129 H 01/26/24 06:34: WBC 10.4, RBC 3.49 L, Hgb 9.7 L, Hct 31.9 L, MCV 91.4, MCH 27.8, MCHC 30.4 L, RDW Std Deviation 46.6 H, RDW Coeff of Festus 13.8, Plt Count 319, MPV 9.9, Immature Gran % (Auto) 2.000 H, Neut % (Auto) 66.9, Lymph % (Auto) 18.8 L, [place] % (Auto) 8.8, Eos % (Auto) 2.9, Baso % (Auto) 0.6, Absolute Neuts (auto) 6.9, Absolute Lymphs (auto) 1.95, Nucleated RBC % 0, Sodium 142, Potassium 3.8, Chloride 112 H, Carbon Dioxide 23.0, Anion Gap 7, BUN 21 H, Creatinine 1.32 H, Estim Creat Clear Calc 29.56, Est GFR (MDRD) Af Amer 50 L, Est GFR (MDRD) Non-Af 41 L, BUN/Creatinine Ratio 15.9, Glucose 130 H, Calcium 9.2 Micro: Microbiology 01/22/24 13:40 Blood Culture (Wb) - Anticubital Left Blood Culture - Preliminary No growth in 48 hours. 01/22/24 15:34 Urine Catheter - Josue Urine Culture - Final Pseudomonas aeruginosa Physical Exam Const alert, oriented x3 and no apparent distress General Appearance: cooperative and comfortable HEENT normocephalic and head/scalp atraumatic Eyes General Eye: normal appearance of both eyes Neck supple General: trachea midline Lymph Lymphatic: no lymphedema noted Chest Chest: symmetrical chest wall rise Resp normal respiratory effort and normal air movement Cardio regular rate GI soft to palpation and non-distended Narrative: Josue remains cloudy but improved from admission Skin no jaundice, no petechiae and no mottling Neuro oriented x3 and CN's II-XII intact bilaterally Psych mental status grossly normal Assessment & Plan Assessment/Plan (1) Bilateral hydronephrosis: PLAN: plan to continue stents and catheter for now. (2) YAMILEX (acute kidney injury): PLAN: Continue josue for now, consipation will need to be resolved prior to trial of void (3) Urinary tract infection: QUALIFIERS: Indwelling urinary catheter type: indwelling urethral catheter PLAN: continue antibiotics (4) Constipation: PLAN: increase bowel regimen stop solifenacin
[2024-01-26] MEDS: Senna/Docusate Sodium 1 Tablet 2 TABLET PO ×2 (08:39→21:21)
[2024-01-26] MEDS: Heparin Injection (Vial) 5,000 UNIT/ML VIAL 5000 UNIT SC ×2 (08:39→21:22)
[2024-01-26] MEDS: Polyethylene Glycol 3350 17 GM PACKET PO ×3 (08:39→21:22)
[2024-01-26 08:40] VITALS: PULSE 72
[2024-01-26] MEDS: Aspirin 81 MG TAB.CHEW PO (08:40)
[2024-01-26] MEDS: RisperiDONE 0.5 MG Tablet PO ×2 (08:40→21:21)
[2024-01-26] MEDS: Memantine Hydrochloride 10 MG Tablet PO ×2 (08:40→21:21)
[2024-01-26] MEDS: Metoprolol Tartrate 25 MG Tablet 12.5 MG PO ×2 (08:40→21:21)
[2024-01-26] MEDS: Nystatin Powder 15gm Bottle 1 APPLIC TOPICAL ×2 (08:50→21:22)
[2024-01-26 09:20] VITALS: BP 100/60; PULSE 68; RESP 14; TEMP 36.6; O2SAT 96
[2024-01-26 12:01] LABS: Bedside Glucose 142 mg/dL (74-106)
--- NOTE | 2024-01-26 13:18 | PCM.PN.HOSP ---
Reason for Visit Reason for Visit: Diagnoses Sepsis, unspecified organism (01/22/24) Constipation, unspecified (01/22/24) Unspecified hydronephrosis (01/22/24) Acute kidney failure, unspecified (01/22/24) Urinary tract infection, site not specified (01/22/24) Subjective Subjective Patient still reports some generalized abdominal pain and lack of bowel movement but denies any nausea, does not feel she is eating very well. Still somewhat weak overall. No chest pain or shortness of breath. No catheter in place. Objective Data Objective Data Vital Signs: Vital Signs Temp Pulse Resp BP Pulse Ox O2 Del Method 98 F 68 14 100/60 96 Room Air 01/26/24 09:20 01/26/24 09:20 01/26/24 09:20 01/26/24 09:20 01/26/24 09:20 01/26/24 09:20 Oxygen Delivery Method Room Air Weight: 59.46 kg Body Mass Index (BMI) 24.1 Intake & Output: Intake and Output for Last 24 Hours 01/24/24 01/25/24 01/26/24 23:59 23:59 23:59 Intake Total 1999 / 1999 100 / 100 Output Total 1050 / 1450 1600 / 1600 600 / 600 Balance 950 / 550 -1500 / -1500 -600 / -600 Lab / Micro Data 01/26/24 06:34 01/26/24 06:34 Labs: Laboratory Results - last 24 hr 01/25/24 17:26: POC Glucose 128 H 01/25/24 21:24: POC Glucose 141 H 01/26/24 06:17: POC Glucose 129 H 01/26/24 06:34: WBC 10.4, RBC 3.49 L, Hgb 9.7 L, Hct 31.9 L, MCV 91.4, MCH 27.8, MCHC 30.4 L, RDW Std Deviation 46.6 H, RDW Coeff of Festus 13.8, Plt Count 319, MPV 9.9, Immature Gran % (Auto) 2.000 H, Neut % (Auto) 66.9, Lymph % (Auto) 18.8 L, [place] % (Auto) 8.8, Eos % (Auto) 2.9, Baso % (Auto) 0.6, Absolute Neuts (auto) 6.9, Absolute Lymphs (auto) 1.95, Nucleated RBC % 0, Sodium 142, Potassium 3.8, Chloride 112 H, Carbon Dioxide 23.0, Anion Gap 7, BUN 21 H, Creatinine 1.32 H, Estim Creat Clear Calc 29.56, Est GFR (MDRD) Af Amer 50 L, Est GFR (MDRD) Non-Af 41 L, BUN/Creatinine Ratio 15.9, Glucose 130 H, Calcium 9.2 01/26/24 11:31: POC Glucose 142 H Micro: Microbiology 01/22/24 13:40 Blood Culture (Wb) - Anticubital Left Blood Culture - Preliminary No growth in 48 hours. 01/22/24 15:34 Urine Catheter - No Urine Culture - Final Pseudomonas aeruginosa Physical Exam Narrative General: Alert, oriented, no apparent distress HEENT: Atraumatic, normocephalic Eyes: Anicteric, normal conjunctiva, extraocular movements grossly intact Neck: Supple Respiratory: Clear to auscultation bilaterally, normal respiratory effort Cardiovascular: Regular rate and rhythm GI: Soft, nondistended, patient without rebound, guarding, rigidity, reports tenderness when palpating with hand but not distressed with firm auscultation Extremities: No edema Musculoskeletal: Moving all extremities Neuro: No overt focal neurological deficits Skin: No rashes appreciated Psych: Cooperative Assessment & Plan Assessment/Plan (1) Bilateral hydronephrosis: (2) YAMILEX (acute kidney injury): (3) Sepsis: (4) Urinary tract infection: QUALIFIERS: Indwelling urinary catheter type: indwelling urethral catheter PLAN: Plan Patient is a 78-year-old lady presented with progressive generalized weakness #Sepsis secondary to Pseudomonas UTI ? Secondary to urinary tract infection with Pseudomonas. Imaging studies obtained on admission persistent bilateral hydroureteronephrosis with perinephric and periureteral fat stranding as well as inflammatory changes surrounding the bladder. Obstruction is most likely at the bilateral UVJs. Patient in addition has evidence of endorgan dysfunction with worsening kidney function as well as lactic acidosis. Treatment initiated per protocol with IV fluid broad-spectrum antibiotic therapy after cultures have been sent. Response to therapy being monitored with serial lactic acid levels. ?01/23/2024; responded to initial treatment. Blood pressure remained stable. Lactic acid levels did trend down ? 01/24/2024; urine cultures came back positive for Pseudomonas 25-50 K CFU per mL -01/24: Patient remains on cefepime and has been improving -01/25: Patient afebrile, white blood cell count within normal limits, continue antibiotics at this time #Bilateral hydronephrosis ? Consult was placed to urology Case discussed with Dr. Ramirez plan is for patient to undergo urological intervention with stent placement in a.m. Patient be kept n.p.o. after midnight ??01/23/2024. Scheduled to undergo urological intervention ? 01/24/2024; patient underwent cystoscopy with bilateral ureteral stent insertion, fecal disimpaction on 01/23/2024 -01/24: Patient status post cystoscopy and ureteral stent insertion, also has No catheter still in place -01/25: Urology following, note reviewed, patient to continue No catheter and stent placement at least until she has bowel movement, frequency of MiraLAX increased, scheduled senna docusate #Acute kidney injury-resolved ? Superimposed on chronic kidney disease stage III. Baseline creatinine 1.5 creatinine on admission was 2.74. Do expect improvement with hydration as well as relief of patient hydronephrosis -01/24: Continues to improve, creatinine has down trended to baseline and today was 1.29 -01/25: BUN 21 with a creatinine of 1.32 today, encourage p.o. intake #Diabetes mellitus type 2 ? Patient is on glipizide as well as metformin held placed on Accu-Cheks before meals and at bedtime with sliding scale coverage as well as long-acting insulin -01/24: Glucose has been in 100s today. Continue glargine nightly and sliding scale insulin -01/25: Glucose continues to be well-controlled, a.m. fasting 129. Yesterday it was realized that patient had not been receiving the glargine and glucoses had still been stable so this was discontinued #Parkinson's disease ? Patient is on carbidopa levodopa did contain -01/24: Does still have some baseline tremor, continue carbidopa-levodopa -01/25: Resting tremor noted, continue PT/OT. On Sinemet #Constipation ? Patient underwent fecal disimpaction under anesthesia. Subsequently started on MiraLAX daily in addition to Senokot -01/24: Has not had bowel movement but was only disimpacted 2 days ago, continue bowel regimen -01/25: Still has not had bowel movement, MiraLAX increased, patient on Senokot Chronic medical problems: #Hypothyroidism ? Patient is on levothyroxine home dose continued -01/24: Most recent TSH 12/16/2023 0.656, continue home Synthroid #Coronary artery disease ? With previous CABG patient is on antiplatelet therapy with aspirin as well as statin therapy and beta-blockers -01/24: Patient on aspirin, statin, resume home beta-elen with holding parameters #Essential hypertension ? Patient antihypertensives currently being held given her presentation -01/24: Resuming metoprolol at lower dose with holding parameters, increase as patient tolerates #Mild cognitive impairment ? Patient is on Namenda plan is to continue -01/24: Continue Namenda, no acute complaints, continue Risperdal as well #Overactive bladder -Continue home solifenacin -01/24: Presently has No in place -01/25: Home Solifenacin held per urology #History of TIA -Continue aspirin -01/24: Continuing aspirin and statin #Depression/anxiety -Continue home risperidone and Ativan -01/24: Patient did not report any acute complaints -01/25: Patient had not been receiving Ativan, will hold as there is concerned that this could adversely affect her mental status if given DVT prophylaxis -Continue subcu heparin Charges/Coding Visit Charges Inpatient E&M: 62516 Subs Hosp L2
--- NOTE | 2024-01-26 13:59 | CASEMGMT ---
Social Work SW met with pt and spouse. Spouse reports that he would like pt to go home if she can independently walk 20-25' to bathroom and is steady on her feet, which pt has not been able to do with therapy at this time. Pt spouse states that there are no stairs into the home and there are grab bars in the bathroom. Pt spouse states that pt previously had HHC through [facility] and pt has a private pay aide once per week. Pt and pt spouse state if pt needs SNF and it is covered, the FOC would be [facility]. SW will follow up after [employer] [facility] rep meets with pt. ALEXUS Paredes
[2024-01-26] MEDS: Acetaminophen 325 MG Tablet 650 MG PO (14:24)
[2024-01-26 15:25] VITALS: BP 102/72; PULSE 72; RESP 16; TEMP 36.8; O2SAT 96
[2024-01-26 17:39] LABS: Bedside Glucose 141 mg/dL (74-106)
[2024-01-26 21:07] VITALS: BP 113/62; PULSE 98; RESP 18; TEMP 36.5; O2SAT 98
[2024-01-26 21:21] VITALS: BP 113/62; PULSE 98
[2024-01-26] MEDS: Atorvastatin Calcium 10 MG Tablet PO (21:22)
[2024-01-26] MEDS: Cefepime HCl 2 GM in 0.9% Normal Saline (100mL MB+) 100 ML IV (21:23)
[2024-01-26 23:03] LABS: Bedside Glucose 148 mg/dL (74-106)
[2024-01-27] VITALS (7 sets, daily range): BP systolic 95–131; BP diastolic 64–73; PULSE 78–112; RESP 16–18; TEMP 36.6–36.8; O2SAT 96–100; BMI 24.0
[2024-01-27] MEDS: Polyethylene Glycol 3350 17 GM PACKET PO ×3 (06:31→21:04)
[2024-01-27] MEDS: Levothyroxine 50 MCG Tablet PO (06:31)
[2024-01-27] MEDS: Carbidopa/Levodopa 25/100 Tablet PO ×3 (06:31→16:36)
[2024-01-27 07:18] LABS: Anion Gap 5 (5-15); BUN 23 mg/dL (7-18); BUN/Creat Ratio 15.6 RATIO (10-20); Calcium,Total 9.3 mg/dL (8.5-10.1); Chloride 111 mmol/L (98-107); Creatinine, Serum 1.47 mg/dL (0.55-1.02); EST Glomerular Filtration Rate 37 mL/min (>60); Est Glom Filt Rate - Afr Amer 44 mL/min (>60); Estimated Creatinine Clearance 26.51 ml/min; Glucose 160 mg/dL (74-106); Potassium 4.2 mmol/L (3.5-5.1); Sodium Level 139 mmol/L (136-145)
--- NOTE | 2024-01-27 07:23 | CT_ITS ---
EXAM: CT HEAD WITHOUT INTRAVENOUS CONTRAST CLINICAL INDICATION: fell and hit head TECHNIQUE: Multiple axial images were obtained of the head without intravenous contrast. This CT exam was performed using one or more of the following dose reduction techniques: automated exposure control, adjustment of the mA and/or kV according to patient size, and/or use of iterative reconstruction technique. RADIATION DOSE: CTDIvol = 44.99 mGy, DLP = 762.36 mGy-cm COMPARISON: 05/24/2022. FINDINGS: BRAIN AND EXTRA-AXIAL SPACES: Moderate generalized atrophy. Moderate low density bilaterally in the deep white matter. No intra- or extra-axial hemorrhage. No evidence of acute infarct. No intracranial mass or mass effect. There is preservation of the ritchie/white matter interface. Posterior fossa structures are unremarkable. No hydrocephalus. Basal cisterns are patent. BONES/JOINTS: Unremarkable. No discrete lytic or blastic abnormalities. SINUSES: Unremarkable as visualized. Clear. MASTOID AIR CELLS: Unremarkable. Clear. ORBITS: Visualized globes, extraocular muscles, optic nerves and retrobulbar fat appear unremarkable. CT/Brain/Head without Contrast IMPRESSION: Moderate generalized atrophy. Moderate low density bilaterally in the deep white matter. This likely represents chronic small vessel ischemic changes in the deep white matter. No acute intracranial abnormality. Electronically Signed: Yao Salguero MD at 8:01 EDT ,
[2024-01-27 07:25] LABS: Absolute Lymphocyte Count 1.92 X10^3/uL (0.83-4.51); Absolute Neutrophil Count 7.9 X10^3/uL (2.0-7.7); Basophil# 0.08 X10^3/uL; Basophil% 0.7 % (0-1); Eosinophil# 0.36 X10^3/uL; Eosinophils% 3.1 % (0-5); Hematocrit 31.8 % (37-47); Hemoglobin 9.8 g/dL (12.0-15.0); Lymphocyte # 1.92 X10^3/ul (0.83-4.51); Lymphocyte % 16.6 % (19-41); Mean Corp Hgb Conc 30.8 g/dL (32-36); Mean Corpuscular Hgb 27.7 pg (27.0-32.0); Mean Corpuscular Volume 89.8 fL (81-99); Mean Platelet Vol. 10.2 fl (6.2-12.0); Monocyte# 0.99 X10^3/uL; Monocyte% 8.6 % (0-10); NRBC Flagged by Analyzer 0.2 % (0-5); Neutrophil # 7.89 X10^3/uL (2.7-7.7); Neutrophil % 68.2 % (47-70); Platelet Count 341 K/mm3 (150-450); RBC Distribution Width CV 13.7 % (11.6-14.6); Red Blood Count 3.54 M/mm3 (4.2-5.4); White Blood Count 11.6 K/mm3 (4.4-11.0)
--- NOTE | 2024-01-27 07:25 | NURSING ---
WAS LEFT A MESSAGE ABOUT PT ROOM CHANGE AND FALLING
[2024-01-27 07:31] LABS: Bedside Glucose 149 mg/dL (74-106)
--- NOTE | 2024-01-27 08:11 | RAD_ITS ---
STUDY: X-RAY - RIGHT HAND REASON FOR EXAM: Female, 78 years old. Fell and hit R hand w/ hand pain TECHNIQUE: 3 view(s) of the hand. COMPARISON: None. FINDINGS: Normal radiocarpal articulation. Normal distal radioulnar joint. Normal visualized carpal bones. Normal carpal articulations Normal carpometacarpal articulation of the thumb. Normal second through fifth carpometacarpal joints. Normal metacarpi. Normal metacarpophalangeal joint of the thumb. Normal interphalangeal joint of the thumb. Normal proximal and distal phalanges of the thumb. Normal metacarpophalangeal joints of the second through fifth fingers. There is diffuse articular joint space narrowing of the proximal and distal interphalangeal joints of the second through fifth fingers, but without erosive changes or periarticular soft tissue swelling. Normal phalanges of the second through fifth fingers. Soft tissue swelling. RAD/Hand Min 3 Views IMPRESSION: Degenerative changes. Soft tissue swelling. Electronically Signed: Maico Brothers MD at 9:46 EDT ,
[2024-01-27] MEDS: Memantine Hydrochloride 10 MG Tablet PO ×2 (10:39→21:05)
[2024-01-27] MEDS: RisperiDONE 0.5 MG Tablet PO ×2 (10:39→21:05)
[2024-01-27] MEDS: Nystatin Powder 15gm Bottle 1 APPLIC TOPICAL ×2 (10:39→21:04)
[2024-01-27] MEDS: Senna/Docusate Sodium 1 Tablet 2 TABLET PO ×2 (10:39→21:06)
[2024-01-27] MEDS: Insulin Lispro 100 UNIT/ML INSULN.PEN SC ×2 (11:17→16:35)
[2024-01-27 11:32] LABS: Bedside Glucose 164 mg/dL (74-106)
[2024-01-27 11:48] LABS: Bedside Glucose 175 mg/dL (74-106)
--- NOTE | 2024-01-27 12:07 | CASEMGMT ---
Social Work- SW called pt spouse Jeet to provide pending medicaid number ([id number]) & discuss pending medicaid information provided by [facility]. [facility] reports that pt will not be approved until her 30 days of continuous care and pt would be responsible for her stay if she left prior to 30 days. Pt liability would not be billed until after she is approved if there is one. Pt spouse expressed understanding of that information and would like SW to proceed with referral to [facility], as he reports that he felt 20 days was not long enough prior and that pt will need a minimum of 30 days. SW advised [facility] to complete referral. ?Pt spouse will be in this afternoon to bring a bank statement for [employer]. SW will remain available to follow. ALEXUS Paredes
--- NOTE | 2024-01-27 12:19 | CASEMGMT ---
Addendum entered by Shirley Perry 01/28/24 10:30: [facility] has requested that hospital obtain loc. SW updated. Shirley Perry DC Planning Asst. Addendum entered by Shirley Perry 01/27/24 16:37: [facility] accepted. SW updated. Shirley Perry DC Planning Asst. Original Note: Discharge Planning Referral sent via [facility] to [facility]. Shirley Perry DC Planning Asst.
[2024-01-27] MEDS: 0.9% Saline Lock 10 ML Syringe IV (12:30)
[2024-01-27] MEDS: 0.9% Normal Saline (250mL Bag) 250 ML 999 ML IV (12:30)
[2024-01-27] MEDS: Metoprolol Tartrate 25 MG Tablet 12.5 MG PO (14:48)
[2024-01-27 16:55] LABS: Bedside Glucose 158 mg/dL (74-106)
--- NOTE | 2024-01-27 18:22 | PN.HOSP_ITS ---
Reason for Visit Reason for Visit: Diagnoses Sepsis, unspecified organism (01/22/24) Constipation, unspecified (01/22/24) Unspecified hydronephrosis (01/22/24) Acute kidney failure, unspecified (01/22/24) Urinary tract infection, site not specified (01/22/24) Subjective Subjective Patient fell in the a.m. when she got up without assistance. She reports she feels like she slipped, hit her right hand and had. Feels a little bit sore with some generalized aches and pains. Still is not had bowel movement but not complaining of abdominal pain at this time. No nausea or vomiting reported. Appetite still suboptimal Objective Data Objective Data Vital Signs: Vital Signs Temp Pulse Resp BP Pulse Ox O2 Del Method 98.3 F 91 18 113/66 97 Room Air 01/27/24 16:41 01/27/24 16:41 01/27/24 16:41 01/27/24 16:41 01/27/24 16:41 01/27/24 16:41 Oxygen Delivery Method Room Air Weight: 59.3 kg Body Mass Index (BMI) 24.0 Intake & Output: Intake and Output for Last 24 Hours 01/25/24 01/26/24 01/27/24 23:59 23:59 23:59 Intake Total 100 / 100 700 / 700 550 / 550 Output Total 1600 / 1600 1200 / 1200 1400 / 1400 Balance -1500 / -1500 -500 / -500 -850 / -850 Lab / Micro Data 01/27/24 06:32 01/27/24 06:32 Labs: Laboratory Results - last 24 hr 01/26/24 21:10: POC Glucose 148 H 01/27/24 06:32: WBC 11.6 H, RBC 3.54 L, Hgb 9.8 L, Hct 31.8 L, MCV 89.8, MCH 27.7, MCHC 30.8 L, RDW Std Deviation 45.0 H, RDW Coeff of Festus 13.7, Plt Count 341, MPV 10.2, Immature Gran % (Auto) 2.800 H, Neut % (Auto) 68.2, Lymph % (Auto) 16.6 L, Saline % (Auto) 8.6, Eos % (Auto) 3.1, Baso % (Auto) 0.7, Absolute Neuts (auto) 7.9 H, Absolute Lymphs (auto) 1.92, Nucleated RBC % 0.2, Sodium 139, Potassium 4.2, Chloride 111 H, Carbon Dioxide 23.0, Anion Gap 5, BUN 23 H, Creatinine 1.47 H, Estim Creat Clear Calc 26.51, Est GFR (MDRD) Af Amer 44 L, E st GFR (MDRD) Non-Af 37 L, BUN/Creatinine Ratio 15.6, Glucose 160 H, Calcium 9.3 01/27/24 06:33: POC Glucose 149 H 01/27/24 07:11: POC Glucose 175 H 01/27/24 11:15: POC Glucose 164 H 01/27/24 16:34: POC Glucose 158 H Micro: Microbiology 01/22/24 13:40 Blood Culture (Wb) - Anticubital Left Blood Culture - Final No growth in 5 days. 01/22/24 15:34 Urine Catheter - No Urine Culture - Final Pseudomonas aeruginosa Radiography Diagnostic Testing: Radiology Impression Brain CT 01/27/24 07:23 IMPRESSION: Moderate generalized atrophy. Moderate low density bilaterally in the deep white matter. This likely represents chronic small vessel ischemic changes in the deep white matter. No acute intracranial abnormality. Electronically Signed: Yao Salguero MD at 8:01 EDT , Hand X-Ray 01/27/24 08:11 IMPRESSION: Degenerative changes. Soft tissue swelling. Electronically Signed: Maico Brothers MD at 9:46 EDT , Physical Exam Narrative General: Alert, oriented, no apparent distress HEENT: Atraumatic, normocephalic, slightly tender on lower back right occiput with no bleeding Eyes: Anicteric, normal conjunctiva, extraocular movements grossly intact Neck: Supple Respiratory: Clear to auscultation bilaterally, normal respiratory effort Cardiovascular: Regular rate GI: Soft, nontender, nondistended Extremities: No edema Musculoskeletal: Moving all extremities Neuro: No overt focal neurological deficits Skin: No rashes appreciated Psych: Cooperative Assessment & Plan Assessment/Plan (1) Bilateral hydronephrosis: (2) YAMILEX (acute kidney injury): (3) Sepsis: (4) Urinary tract infection: QUALIFIERS: Indwelling urinary catheter type: indwelling urethral catheter PLAN: Plan Patient is a 78-year-old lady presented with progressive generalized weakness #Sepsis secondary to Pseudomonas UTI ? Secondary to urinary tract infection with Pseudomonas. Imaging studies obtained on admission persistent bilateral hydroureteronephrosis with perinephric and periureteral fat stranding as well as inflammatory changes surrounding the bladder. Obstruction is most likely at the bilateral UVJs. Patient in addition has evidence of endorgan dysfunction with worsening kidney function as well as lactic acidosis. Treatment initiated per protocol with IV fluid broad-spectrum antibiotic therapy after cultures have been sent. Response to therapy being monitored with serial lactic acid levels. ?01/23/2024; responded to initial treatment. Blood pressure remained stable. Lactic acid levels did trend down ? 01/24/2024; urine cultures came back positive for Pseudomonas 25-50 K CFU per mL -01/24: Patient remains on cefepime and has been improving -01/25: Patient afebrile, white blood cell count within normal limits, continue antibiotics at this time -01/26: Patient remains on cefepime, No catheter in place. Afebrile #Bilateral hydronephrosis ? Consult was placed to urology Case discussed with Dr. Ramirez plan is for patient to undergo urological intervention with stent placement in a.m. Patient be kept n.p.o. after midnight ??01/23/2024. Scheduled to undergo urological intervention ? 01/24/2024; patient underwent cystoscopy with bilateral ureteral stent insertion, fecal disimpaction on 01/23/2024 -01/24: Patient status post cystoscopy and ureteral stent insertion, also has No catheter still in place -01/25: Urology following, note reviewed, patient to continue No catheter and stent placement at least until she has bowel movement, frequency of MiraLAX increased, scheduled senna docusate -01/26: No and stents in place, still working towards bowel movement, will add scheduled Metamucil in addition to scheduled MiraLAX and senna docusate #Acute kidney injury-resolved ? Superimposed on chronic kidney disease stage III. Baseline creatinine 1.5 creatinine on admission was 2.74. Do expect improvement with hydration as well as relief of patient hydronephrosis -01/24: Continues to improve, creatinine has down trended to baseline and today was 1.29 -01/25: BUN 21 with a creatinine of 1.32 today, encourage p.o. intake -01/26: BUN and creatinine did uptrend slightly today, patient also had slightly elevated heart rate and blood pressure somewhat soft, she has had somewhat poor p.o. intake and seemed slightly volume depleted. Blood pressure and heart rate improved with fluid bolus, continue to encourage p.o. intake, recheck in a.m. #Constipation ? Patient underwent fecal disimpaction under anesthesia. Subsequently started on MiraLAX daily in addition to Senokot -01/24: Has not had bowel movement but was only disimpacted 2 days ago, continue bowel regimen -01/25: Still has not had bowel movement, MiraLAX increased, patient on Senokot -01/26: Adding Metamucil Chronic medical problems: #Diabetes mellitus type 2 ? Patient is on glipizide as well as metformin held placed on Accu-Cheks before meals and at bedtime with sliding scale coverage as well as long-acting insulin -01/24: Glucose has been in 100s today. Continue glargine nightly and sliding scale insulin -01/25: Glucose continues to be well-controlled, a.m. fasting 129. Yesterday it was realized that patient had not been receiving the glargine and glucoses had still been stable so this was discontinued #Parkinson's disease ? Patient is on carbidopa levodopa did contain -01/24: Does still have some baseline tremor, continue carbidopa-levodopa -01/25: Resting tremor noted, continue PT/OT. On Sinemet #Hypothyroidism ? Patient is on levothyroxine home dose continued -01/24: Most recent TSH 12/16/2023 0.656, continue home Synthroid #Coronary artery disease ? With previous CABG patient is on antiplatelet therapy with aspirin as well as statin therapy and beta-blockers -01/24: Patient on aspirin, statin, resume home beta-elen with holding parameters #Essential hypertension ? Patient antihypertensives currently being held given her presentation -01/24: Resuming metoprolol at lower dose with holding parameters, increase as patient tolerates #Mild cognitive impairment ? Patient is on Namenda plan is to continue -01/24: Continue Namenda, no acute complaints, continue Risperdal as well #Overactive bladder -Continue home solifenacin -01/24: Presently has No in place -01/25: Home Solifenacin held per urology #History of TIA -Continue aspirin -01/24: Continuing aspirin and statin #Depression/anxiety -Continue home risperidone and Ativan -01/24: Patient did not report any acute complaints -01/25: Patient had not been receiving Ativan, will hold as there is concerned that this could adversely affect her mental status if given DVT prophylaxis -Continue subcu heparin Samreen Joy MD Time spent in the patient's overall evaluation,decision-making process, review of diagnostic data, adjustment of management, discussion with other providers, nursing nursing and ancillary staff involved in patient's care documentation, 38 Minutes Charges/Coding Visit Charges Inpatient E&M: 43137 Subs Hosp L2
[2024-01-27] MEDS: Cefepime HCl 2 GM in 0.9% Normal Saline (100mL MB+) 100 ML IV (21:03)
[2024-01-27] MEDS: Heparin Injection (Vial) 5,000 UNIT/ML VIAL 5000 UNIT SC (21:04)
[2024-01-27] MEDS: Atorvastatin Calcium 10 MG Tablet PO (21:05)
[2024-01-27] MEDS: Psyllium 1 PACKET PO (21:07)
[2024-01-27 22:52] LABS: Bedside Glucose 145 mg/dL (74-106)
[2024-01-28 06:00] VITALS: BMI 23.8
[2024-01-28 06:22] VITALS: BP 138/98; PULSE 79; RESP 16; TEMP 36.6; O2SAT 97
[2024-01-28 06:28] LABS: Absolute Lymphocyte Count 2.79 X10^3/uL (0.83-4.51); Absolute Neutrophil Count 7.2 X10^3/uL (2.0-7.7); Basophil# 0.03 X10^3/uL; Basophil% 0.3 % (0-1); Eosinophil# 0.37 X10^3/uL; Eosinophils% 3.1 % (0-5); Hematocrit 31.4 % (37-47); Hemoglobin 9.7 g/dL (12.0-15.0); Lymphocyte # 2.79 X10^3/ul (0.83-4.51); Lymphocyte % 23.7 % (19-41); Mean Corp Hgb Conc 30.9 g/dL (32-36); Mean Corpuscular Hgb 28.1 pg (27.0-32.0); Mean Platelet Vol. 9.6 fl (6.2-12.0); Monocyte# 0.96 X10^3/uL; Monocyte% 8.1 % (0-10); NRBC Flagged by Analyzer 0 % (0-5); Neutrophil # 7.17 X10^3/uL (2.7-7.7); Neutrophil % 60.8 % (47-70); Platelet Count 311 K/mm3 (150-450); RBC Distribution Width CV 13.9 % (11.6-14.6); RBC Distribution Width SD 45.7 fl (35.1-43.9); Red Blood Count 3.45 M/mm3 (4.2-5.4); White Blood Count 11.8 K/mm3 (4.4-11.0)
[2024-01-28] MEDS: Polyethylene Glycol 3350 17 GM PACKET PO ×3 (06:30→22:00)
[2024-01-28] MEDS: Levothyroxine 50 MCG Tablet PO (06:30)
[2024-01-28] MEDS: Psyllium 1 PACKET PO ×2 (06:30→15:42)
[2024-01-28] MEDS: Carbidopa/Levodopa 25/100 Tablet PO ×3 (06:30→16:05)
[2024-01-28 07:15] LABS: Bedside Glucose 137 mg/dL (74-106)
[2024-01-28 07:17] LABS: Anion Gap 5 (5-15); BUN 21 mg/dL (7-18); Calcium,Total 9.1 mg/dL (8.5-10.1); Chloride 112 mmol/L (98-107); Creatinine, Serum 1.61 mg/dL (0.55-1.02); EST Glomerular Filtration Rate 33 mL/min (>60); Est Glom Filt Rate - Afr Amer 40 mL/min (>60); Estimated Creatinine Clearance 24.11 ml/min; Glucose 145 mg/dL (74-106); Potassium 4.1 mmol/L (3.5-5.1); Sodium Level 140 mmol/L (136-145)
[2024-01-28 08:33] VITALS: BP 141/82; PULSE 89; RESP 16; TEMP 36.5; O2SAT 97
[2024-01-28] MEDS: Aspirin 81 MG TAB.CHEW PO (08:43)
--- NOTE | 2024-01-28 08:44 | PN.HOSP_ITS ---
Reason for Visit Reason for Visit: Diagnoses Sepsis, unspecified organism (01/22/24) Constipation, unspecified (01/22/24) Unspecified hydronephrosis (01/22/24) Acute kidney failure, unspecified (01/22/24) Urinary tract infection, site not specified (01/22/24) Subjective Subjective Feels tired. Denies pain. Objective Data Objective Data Vital Signs: Vital Signs Temp Pulse Resp BP Pulse Ox O2 Del Method 36.5 C L 89 16 141/82 H 97 Room Air 01/28/24 08:33 01/28/24 08:33 01/28/24 08:33 01/28/24 08:33 01/28/24 08:33 01/28/24 08:34 Oxygen Delivery Method Room Air Weight: 58.8 kg Body Mass Index (BMI) 23.8 Intake & Output: Intake and Output for Last 24 Hours 01/26/24 01/27/24 01/28/24 23:59 23:59 23:59 Intake Total 700 / 700 650 / 850 300 / 300 Output Total 1200 / 1200 1400 / 1600 750 / 750 Balance -500 / -500 -750 / -750 -450 / -450 Lab / Micro Data 01/28/24 06:19 01/28/24 06:19 Labs: Laboratory Results - last 24 hr 01/27/24 07:11: POC Glucose 175 H 01/27/24 11:15: POC Glucose 164 H 01/27/24 16:34: POC Glucose 158 H 01/27/24 21:03: POC Glucose 145 H 01/28/24 06:19: WBC 11.8 H, RBC 3.45 L, Hgb 9.7 L, Hct 31.4 L, MCV 91.0, MCH 28.1, MCHC 30.9 L, RDW Std Deviation 45.7 H, RDW Coeff of Festus 13.9, Plt Count 311, MPV 9.6, Immature Gran % (Auto) 4.000 H, Neut % (Auto) 60.8, Lymph % (Auto) 23.7, [place] % (Auto) 8.1, Eos % (Auto) 3.1, Baso % (Auto) 0.3, Absolute Neuts (auto) 7.2, Absolute Lymphs (auto) 2.79, Nucleated RBC % 0, Sodium 140, Potassium 4.1, Chloride 112 H, Carbon Dioxide 23.0, Anion Gap 5, BUN 21 H, C reatinine 1.61 H, Estim Creat Clear Calc 24.11, Est GFR (MDRD) Af Amer 40 L, Est GFR (MDRD) Non-Af 33 L, BUN/Creatinine Ratio 13.0, Glucose 145 H, Calcium 9.1, P OC Glucose 137 H Micro: Microbiology 01/22/24 13:40 Blood Culture (Wb) - Anticubital Left Blood Culture - Final No growth in 5 days. 01/22/24 15:34 Urine Catheter - No Urine Culture - Final Pseudomonas aeruginosa Radiography Diagnostic Testing: Radiology Impression Hand X-Ray 01/27/24 08:11 IMPRESSION: Degenerative changes. Soft tissue swelling. Electronically Signed: Maico Brothers MD at 9:46 EDT , Physical Exam Const alert and no apparent distress HEENT head/scalp atraumatic and moist oral mucous membranes Resp normal respiratory effort, no retractions, no use of accessory muscles and clear to auscultation bilaterally Cardio regular rate, regular rhythm, S1 normal heart sound and S2 normal heart sound GI normal to inspection, nondistended, normoactive bowel sounds, soft to palpation, non-tender and non-distended Neuro Sensorium / Orientation: awake and alert Assessment & Plan Assessment/Plan (1) Bilateral hydronephrosis: (2) YAMILEX (acute kidney injury): (3) Sepsis: (4) Urinary tract infection: QUALIFIERS: Indwelling urinary catheter type: indwelling urethral catheter PLAN: Plan Sepsis * Secondary to urinary tract infection with Pseudomonas. * Cefepime since 01/21. Bilateral hydronephrosis * 01/24/2024; patient underwent cystoscopy with bilateral ureteral stent insertion * Pt to continue with No catheter, though will need constipation resolved prior to voiding trial Constipation: * complicating hydronephrosis * No recorded BMs. Though did undergo fecal disimpaction by anesthesia * on scheduled miralax and metamucil. YAMILEX: * on CKD3B * improved from 2.74 and stable at 1.6. Chronic medical problems: * Diabetes mellitus type 2? Patient is on glipizide as well as metformin held placed on Accu-Cheks before meals and at bedtime with sliding scale coverage as well as long-acting insulin-01/24: Glucose has been in 100s today. Continue glargine nightly and sliding scale insulin-01/25: Glucose continues to be well- controlled, a.m. fasting 129. Yesterday it was realized that patient had not been receiving the glargine and glucoses had still been stable so this was discontinued * Parkinson's disease? Patient is on carbidopa levodopa did contain-01/24: Does still have some baseline tremor, continue [id number]: Resting tremor noted, continue PT/OT. On Sinemet * Hypothyroidism? Patient is on levothyroxine home dose continued-01/24: Most recent TSH 12/16/2023 0.656, continue home Synthroid * Coronary artery disease? With previous CABG patient is on antiplatelet therapy with aspirin as well as statin therapy and [id number]: Patient on aspirin, statin, resume home beta-elen with holding parameters * Essential hypertension? Patient antihypertensives currently being held given her presentation-01/24: Resuming metoprolol at lower dose with holding parameters, increase as patient tolerates * Mild cognitive impairment? Patient is on Namenda plan is to continue-01/24: Continue Namenda, no acute complaints, continue Risperdal as well * Overactive bladder-Continue home solifenacin-01/24: Presently has No in place-01/25: Home Solifenacin held per urology * History of TIA-Continue aspirin-01/24: Continuing aspirin and statin * Depression/anxiety-Continue home risperidone and Ativan-01/24: Patient did not report any acute complaints-01/25: Patient had not been receiving Ativan, will hold as there is concerned that this could adversely affect her mental status if given VTE prophylaxis: SQ heparin. Disposition: to [facility] pending LOC. Charges/Coding Visit Charges Inpatient E&M: 67709 Subs Hosp L2
[2024-01-28 09:59] VITALS: BP 141/82; PULSE 89
[2024-01-28] MEDS: Metoprolol Tartrate 25 MG Tablet 12.5 MG PO ×2 (09:59→22:00)
[2024-01-28] MEDS: Senna/Docusate Sodium 1 Tablet 2 TABLET PO ×2 (10:00→21:59)
[2024-01-28] MEDS: RisperiDONE 0.5 MG Tablet PO ×2 (10:01→21:59)
[2024-01-28] MEDS: Nystatin Powder 15gm Bottle 1 APPLIC TOPICAL ×2 (10:01→22:00)
[2024-01-28] MEDS: Memantine Hydrochloride 10 MG Tablet PO ×2 (10:01→22:00)
[2024-01-28] MEDS: Heparin Injection (Vial) 5,000 UNIT/ML VIAL 5000 UNIT SC ×2 (10:04→22:00)
--- NOTE | 2024-01-28 11:26 | TREXTCAR_ITS ---
Diet Diet Order/Speech Therapy: 01/26/24 14:20 Diet: Carbohydrate Controlled Food consistency:: Regular Liquid Consistency:: Regular/Thin Type of Dietary Supplement:: Ensure Compact Diet Comments: ensure compact with breakfast and dinner tray Routine Orders/Code Status Routine Lab Work: CBC (weekly) and BMP (weekly) Code Status: Full Code Wound(s) Back: Wound Type: Scratch Problem/Diagnosis (1) Bilateral hydronephrosis: Status: Acute Code(s): N13.30 - Unspecified hydronephrosis (2) YAMILEX (acute kidney injury): Status: Acute Code(s): N17.9 - Acute kidney failure, unspecified (3) Sepsis: Status: Acute Code(s): A41.9 - Sepsis, unspecified organism (4) Urinary tract infection: Status: Acute Code(s): N39.0 - Urinary tract infection, site not specified Plan Sepsis * Secondary to urinary tract infection with Pseudomonas. * Cefepime since 01/21. Bilateral hydronephrosis * 01/24/2024; patient underwent cystoscopy with bilateral ureteral stent insertion * Pt to continue with No catheter, though will need constipation resolved prior to voiding trial Constipation: * complicating hydronephrosis * No recorded BMs. Though did undergo fecal disimpaction by anesthesia * on scheduled miralax and metamucil. YAMILEX: * on CKD3B * improved from 2.74 and stable at 1.6. Chronic medical problems: * Diabetes mellitus type 2? Patient is on glipizide as well as metformin held placed on Accu-Cheks before meals and at bedtime with sliding scale coverage as well as long-acting insulin-01/24: Glucose has been in 100s today. Continue glargine nightly and sliding scale insulin-01/25: Glucose continues to be well- controlled, a.m. fasting 129. Yesterday it was realized that patient had not been receiving the glargine and glucoses had still been stable so this was discontinued * Parkinson's disease? Patient is on carbidopa levodopa did contain-01/24: Does still have some baseline tremor, continue [id number]-00/8: Resting tremor noted, continue PT/OT. On Sinemet * Hypothyroidism? Patient is on levothyroxine home dose continued-01/24: Most recent TSH 12/16/2023 0.656, continue home Synthroid * Coronary artery disease? With previous CABG patient is on antiplatelet therapy with aspirin as well as statin therapy and [id number]-[id number]-27/7: Patient on aspirin, statin, resume home beta-elen with holding parameters * Essential hypertension? Patient antihypertensives currently being held given her presentation-01/24: Resuming metoprolol at lower dose with holding parameters, increase as patient tolerates * Mild cognitive impairment? Patient is on Namenda plan is to continue-01/24: Continue Namenda, no acute complaints, continue Risperdal as well * Overactive bladder-Continue home solifenacin-01/24: Presently has No in place-01/25: Home Solifenacin held per urology * History of TIA-Continue aspirin-01/24: Continuing aspirin and statin * Depression/anxiety-Continue home risperidone and Ativan-01/24: Patient did not report any acute complaints-01/25: Patient had not been receiving Ativan, will hold as there is concerned that this could adversely affect her mental status if given VTE prophylaxis: SQ heparin. Allergies/Procedures Done in Hospital Allergies No Known Allergies Allergy (Verified 12/15/23 15:23) Type of Care/Length of Stay Estimated LOS: Convalescent Care Less Than 30 days Type of Care Needed: Skilled Rehab Potential: Fair Prognosis: Fair Additional Orders/Day of Discharge Day of Discharge: 01/28/24 Dietary and Speech Recommendations Dietitian Recommendations/Changes: Will change diet to carbohydrate-controlled (no caloric restriction). Will add ensure compact BID w/ breakfast and dinner tray. Discharge Plan Admission Admit Date/Time: 01/22/24 17:45 Primary Reason for Your Visit: Sepsis. UTI. Hydronephrosis. Attending Provider: Manjit Stephens Primary Care Provider: Toi Ocampo Consulting Providers: Sanam Ramirez; Renzo Tavares; Samreen Joy Discharge Orders/Prescriptions Prescriptions: New acetaminophen 325 mg Tablet 650 mg PO Q6H PRN PRN (Reason: Pain 1-10 Or Fever>100.7) Qty: 0 0RF melatonin 3 mg Tablet 3 mg PO QHS PRN PRN (Reason: Insomnia) Qty: 0 0RF nystatin [Nyamyc] 100,000 unit/gram Powder 1 applic topical BID Qty: 0 0RF Protocol: *Topical Application Instructions APPLICATION INSTRUCTIONS: under breasts Daily Fiber (psyllium-aspart) 3 gram Powder In Packet 1 packet PO TID Qty: 0 0RF sennosides-docusate sodium [Stimulant Laxative Plus] 8.6-50 mg Tablet 2 tab PO BID Qty: 0 0RF polyethylene glycol 3350 [Miralax] 17 gram/dose powder 17 g PO DAILY Qty: 119 0RF ciprofloxacin HCl [Cipro] 500 mg tablet 500 mg PO .q48 Qty: 2 0RF Continued levothyroxine 50 MCG tablet 50 mcg PO DAILY metoprolol tartrate 25 MG tablet 25 mg PO BID glipizide 2.5 mg tablet extended release 24hr 2.5 mg PO DAILY Patient Comments: Take 1 tablet by mouth daily with breakfast. Rx Instructions: with breakfast aspirin 81 mg Tablet 81 mg PO DAILY Rx Instructions: INSTRUCTED TO STOP 5 DAYS PRIOR TO OR carbidopa-levodopa 25-100 mg tablet 1.5 tab PO TID Patient Comments: Take 1 and 1/2 tablets by mouth every morning AND 1 and 1/2 tablets every afternoon AND 1 and 1/2 tablets every evening. (8AM, Noon, 4PM).. memantine 10 mg tablet 10 mg PO BID Patient Comments: Take 1 tablet by mouth twice daily. solifenacin 5 mg tablet 5 mg PO DAILY Patient Comments: Take 1 tablet by mouth once daily. risperidone 0.5 mg tablet 0.5 mg PO BID Patient Comments: Take 1 tablet by mouth twice daily. tolterodine 2 mg capsule,extended release 24hr 2 mg PO DAILY atorvastatin 10 mg tablet 10 mg PO DAILY Discontinued lorazepam 0.5 MG tablet 0.5 mg PO QHS PRN (Reason: anxiety) Qty: 3 0RF Rx Instructions: take 1-2 tablets by mouth daily at bedtime metformin 500 mg tablet 500 mg PO BID Referrals / Follow Up: Toi Ocampo MD [Primary Care Provider] - Within 2 Weeks Dannielle John MD [Med Staff - Manager Research] - Sanam Ramirez MD [Med Staff - Active Staff] - Within 2 Weeks Disposition Disposition (needs filled in before D/C Order can be placed): Intermediate Facility (4) Urinary tract infection Qualifiers: Indwelling urinary catheter type: indwelling urethral catheter
--- NOTE | 2024-01-28 11:41 | CASEMGMT ---
Addendum entered by Deya Cardoso 01/28/24 16:46: fax confirmation received @11:54 ALEXUS Paredes Original Note: Social Work- SW received word of CC acceptance. [facility] would like a LOC. faxed documentation for LOC. ALEXUS Paredes
[2024-01-28] MEDS: Insulin Lispro 100 UNIT/ML INSULN.PEN SC ×2 (12:29→16:04)
[2024-01-28 12:51] LABS: Bedside Glucose 195 mg/dL (74-106)
[2024-01-28 15:58] VITALS: BP 113/75; PULSE 95; RESP 16; TEMP 36.6; O2SAT 97
[2024-01-28 16:50] LABS: Bedside Glucose 184 mg/dL (74-106)
[2024-01-28 21:52] VITALS: BP 118/62; PULSE 97; RESP 16; TEMP 36.9; O2SAT 96
[2024-01-28 22:00] VITALS: PULSE 97
[2024-01-28] MEDS: Atorvastatin Calcium 10 MG Tablet PO (22:00)
[2024-01-28] MEDS: Cefepime HCl 2 GM in 0.9% Normal Saline (100mL MB+) 100 ML IV (22:00)
[2024-01-28] MEDS: 0.9% Saline Lock 10 ML Syringe IV (22:15)
[2024-01-29 00:13] LABS: Bedside Glucose 141 mg/dL (74-106)
[2024-01-29 04:02] VITALS: BP 130/65; PULSE 77; RESP 18; TEMP 36.7; O2SAT 95
[2024-01-29 05:46] LABS: Absolute Neutrophil Count 7.9 X10^3/uL (2.0-7.7); Basophil# 0.08 X10^3/uL; Basophil% 0.6 % (0-1); Eosinophil# 0.42 X10^3/uL; Eosinophils% 3.4 % (0-5); Hematocrit 30.7 % (37-47); Hemoglobin 9.5 g/dL (12.0-15.0); Mean Corp Hgb Conc 30.9 g/dL (32-36); Mean Corpuscular Hgb 28.2 pg (27.0-32.0); Mean Corpuscular Volume 91.1 fL (81-99); Mean Platelet Vol. 9.9 fl (6.2-12.0); Monocyte# 0.86 X10^3/uL; NRBC Flagged by Analyzer 0 % (0-5); Neutrophil # 7.93 X10^3/uL (2.7-7.7); Neutrophil % 64.2 % (47-70); Platelet Count 330 K/mm3 (150-450); RBC Distribution Width SD 46.9 fl (35.1-43.9); Red Blood Count 3.37 M/mm3 (4.2-5.4); White Blood Count 12.4 K/mm3 (4.4-11.0)
[2024-01-29 06:00] VITALS: BMI 23.8
[2024-01-29 06:18] LABS: Anion Gap 5 (5-15); BUN 23 mg/dL (7-18); BUN/Creat Ratio 14.8 RATIO (10-20); Calcium,Total 9.2 mg/dL (8.5-10.1); Chloride 114 mmol/L (98-107); Creatinine, Serum 1.55 mg/dL (0.55-1.02); EST Glomerular Filtration Rate 34 mL/min (>60); Est Glom Filt Rate - Afr Amer 42 mL/min (>60); Estimated Creatinine Clearance 25.03 ml/min; Glucose 140 mg/dL (74-106); Potassium 3.9 mmol/L (3.5-5.1); Sodium Level 142 mmol/L (136-145)
[2024-01-29 06:56] LABS: Bedside Glucose 144 mg/dL (74-106)
[2024-01-29] MEDS: Levothyroxine 50 MCG Tablet PO (07:22)
[2024-01-29] MEDS: Psyllium 1 PACKET PO ×2 (07:22→15:22)
[2024-01-29] MEDS: Polyethylene Glycol 3350 17 GM PACKET PO ×2 (07:22→15:22)
[2024-01-29] MEDS: Carbidopa/Levodopa 25/100 Tablet PO ×3 (07:22→16:52)
--- NOTE | 2024-01-29 08:07 | PN.HOSP_ITS ---
Reason for Visit Reason for Visit: Diagnoses Sepsis, unspecified organism (01/22/24) Constipation, unspecified (01/22/24) Unspecified hydronephrosis (01/22/24) Acute kidney failure, unspecified (01/22/24) Urinary tract infection, site not specified (01/22/24) Subjective Subjective Feels well. No new complaints. No BM. Objective Data Objective Data Vital Signs: Vital Signs Temp Pulse Resp BP Pulse Ox O2 Del Method 36.7 C 77 18 130/65 H 95 Room Air 01/29/24 04:02 01/29/24 04:02 01/29/24 04:02 01/29/24 04:02 01/29/24 04:02 01/29/24 04:02 Oxygen Delivery Method Room Air Weight: 58.7 kg Body Mass Index (BMI) 23.8 Intake & Output: Intake and Output for Last 24 Hours 01/27/24 01/28/24 01/29/24 23:59 23:59 23:59 Intake Total 650 / 850 800 / 950 150 / 150 Output Total 1400 / 1600 1100 / 1400 600 / 600 Balance -750 / -750 -300 / -450 -450 / -450 Lab / Micro Data 01/29/24 05:34 01/29/24 05:34 Labs: Laboratory Results - last 24 hr 01/28/24 12:28: POC Glucose 195 H 01/28/24 16:03: POC Glucose 184 H 01/28/24 21:54: POC Glucose 141 H 01/29/24 05:34: WBC 12.4 H, RBC 3.37 L, Hgb 9.5 L, Hct 30.7 L, MCV 91.1, MCH 28.2, MCHC 30.9 L, RDW Std Deviation 46.9 H, RDW Coeff of Fesuts 14.0, Plt Count 330, MPV 9.9, Immature Gran % (Auto) 3.800 H, Neut % (Auto) 64.2, Lymph % (Auto) 21.0, Mclean % (Auto) 7.0, Eos % (Auto) 3.4, Baso % (Auto) 0.6, Absolute Neuts (auto) 7.9 H, Absolute Lymphs (auto) 2.60, Nucleated RBC % 0, Sodium 142, Potassium 3.9, Chloride 114 H, Carbon Dioxide 22.0, Anion Gap 5, BUN 23 H, C reatinine 1.55 H, Estim Creat Clear Calc 25.03, Est GFR (MDRD) Af Amer 42 L, Est GFR (MDRD) Non-Af 34 L, BUN/Creatinine Ratio 14.8, Glucose 140 H, Calcium 9.2 01/29/24 06:35: POC Glucose 144 H Micro: Microbiology 01/22/24 13:40 Blood Culture (Wb) - Anticubital Left Blood Culture - Final No growth in 5 days. 01/22/24 15:34 Urine Catheter - No Urine Culture - Final Pseudomonas aeruginosa Physical Exam Const alert and no apparent distress HEENT head/scalp atraumatic and moist oral mucous membranes Resp normal respiratory effort, no retractions, no use of accessory muscles and clear to auscultation bilaterally Cardio regular rate, regular rhythm, S1 normal heart sound and S2 normal heart sound GI normal to inspection, nondistended, normoactive bowel sounds Assessment & Plan Assessment/Plan (1) Bilateral hydronephrosis: (2) YAMILEX (acute kidney injury): (3) Sepsis: (4) Urinary tract infection: QUALIFIERS: Indwelling urinary catheter type: indwelling urethral catheter PLAN: Plan Sepsis * Secondary to urinary tract infection with Pseudomonas. * Cefepime since 01/21. Bilateral hydronephrosis * 01/24/2024; patient underwent cystoscopy with bilateral ureteral stent insertion * Pt to continue with No catheter * Follow up with to have it removed since she has not had a BM Constipation: * complicating hydronephrosis * No recorded BMs. Though did undergo fecal disimpaction by anesthesia * on scheduled miralax and metamucil. * will add 1x dose of dulcolax. YAMILEX: * on CKD3B * improved from 2.74 and stable at 1.6. Chronic medical problems: * Diabetes mellitus type 2? Patient is on glipizide as well as metformin held placed on Accu-Cheks before meals and at bedtime with sliding scale coverage as well as long-acting insulin-01/24: Glucose has been in 100s today. Continue glargine nightly and sliding scale insulin-01/25: Glucose continues to be well- controlled, a.m. fasting 129. Yesterday it was realized that patient had not been receiving the glargine and glucoses had still been stable so this was discontinued * Parkinson's disease? Patient is on carbidopa levodopa did contain-01/24: Does still have some baseline tremor, continue ymumffulr-[id number]-18/8: Resting tremor noted, continue PT/OT. On Sinemet * Hypothyroidism? Patient is on levothyroxine home dose continued-01/24: Most recent TSH 12/16/2023 0.656, continue home Synthroid * Coronary artery disease? With previous CABG patient is on antiplatelet therapy with aspirin as well as statin therapy and kmax-zofalabc-15/7: Patient on aspirin, statin, resume home beta-elen with holding parameters * Essential hypertension? Patient antihypertensives currently being held given her presentation-01/24: Resuming metoprolol at lower dose with holding parameters, increase as patient tolerates * Mild cognitive impairment? Patient is on Namenda plan is to continue-01/24: Continue Namenda, no acute complaints, continue Risperdal as well * Overactive bladder-Continue home solifenacin-01/24: Presently has No in place-01/25: Home Solifenacin held per urology * History of TIA-Continue aspirin-01/24: Continuing aspirin and statin * Depression/anxiety-Continue home risperidone and Ativan-01/24: Patient did not report any acute complaints-01/25: Patient had not been receiving Ativan, will hold as there is concerned that this could adversely affect her mental status if given VTE prophylaxis: SQ heparin. Disposition: to [facility]
[2024-01-29 10:00] VITALS: BP 99/72; PULSE 98; RESP 18; TEMP 37.2; O2SAT 96
[2024-01-29] MEDS: Bisacodyl 5 MG Tablet 10 MG PO (10:25)
[2024-01-29] MEDS: RisperiDONE 0.5 MG Tablet PO (10:25)
[2024-01-29] MEDS: Senna/Docusate Sodium 1 Tablet 2 TABLET PO (10:25)
[2024-01-29] MEDS: Memantine Hydrochloride 10 MG Tablet PO (10:25)
[2024-01-29] MEDS: Aspirin 81 MG TAB.CHEW PO (10:25)
[2024-01-29] MEDS: Heparin Injection (Vial) 5,000 UNIT/ML VIAL 5000 UNIT SC (10:25)
[2024-01-29 10:40] VITALS: PULSE 98
[2024-01-29] MEDS: Metoprolol Tartrate 25 MG Tablet 12.5 MG PO (10:40)
--- NOTE | 2024-01-29 11:12 | CASEMGMT ---
Social Work- SW received LOC. Physician notified. DCA notified. Pt notified. SW called pt spouse. Pt spouse is meeting Odalis between 2-3. SW will update spouse if pt d/c prior to that time. ALEXUS Paredes
--- NOTE | 2024-01-29 12:16 | DS.PCM_ITS ---
Providers Date of Admission: 01/22/24 Primary Care Physician: Dr. Toi Ocampo MD Consultations 01/22/24 18:44 Consult: Urology Routine Consulting Provider: Sanam Ramirez Reason for Consult: Bilateral hydronephrosis EMERGENT Consult: No MD Notified: Yes Date Notified: 01/22/24 Time Notified: 18:23 Method of Notification: Verbal Reason For Visit: SEPTIC SHOCK Diagnosis Discharge Diagnosis (1) Bilateral hydronephrosis: Status: Acute Code(s): N13.30 - Unspecified hydronephrosis (2) YAMILEX (acute kidney injury): Status: Acute Code(s): N17.9 - Acute kidney failure, unspecified (3) Sepsis: Status: Acute Code(s): A41.9 - Sepsis, unspecified organism (4) Urinary tract infection: Status: Acute Code(s): N39.0 - Urinary tract infection, site not specified Qualifiers: Indwelling urinary catheter type: indwelling urethral catheter Plan Sepsis * Secondary to urinary tract infection with Pseudomonas. * Cefepime since 01/21. Bilateral hydronephrosis * 01/24/2024; patient underwent cystoscopy with bilateral ureteral stent insertion * Pt to continue with No catheter * Follow up with to have it removed since she has not had a BM Constipation: * complicating hydronephrosis * No recorded BMs. Though did undergo fecal disimpaction by anesthesia * on scheduled miralax and metamucil. * will add 1x dose of dulcolax. YAMILEX: * on CKD3B * improved from 2.74 and stable at 1.6. Chronic medical problems: * Diabetes mellitus type 2? Patient is on glipizide as well as metformin held placed on Accu-Cheks before meals and at bedtime with sliding scale coverage as well as long-acting insulin-01/24: Glucose has been in 100s today. Continue glargine nightly and sliding scale insulin-01/25: Glucose continues to be well- controlled, a.m. fasting 129. Yesterday it was realized that patient had not been receiving the glargine and glucoses had still been stable so this was discontinued * Parkinson's disease? Patient is on carbidopa levodopa did contain-01/24: Does still have some baseline tremor, continue dfljfzhqc-ztpblmoj-86/8: Resting tremor noted, continue PT/OT. On Sinemet * Hypothyroidism? Patient is on levothyroxine home dose continued-01/24: Most recent TSH 12/16/2023 0.656, continue home Synthroid * Coronary artery disease? With previous CABG patient is on antiplatelet therapy with aspirin as well as statin therapy and ehbh-eydscebl-36/7: Patient on aspirin, statin, resume home beta-elen with holding parameters * Essential hypertension? Patient antihypertensives currently being held given her presentation-01/24: Resuming metoprolol at lower dose with holding parameters, increase as patient tolerates * Mild cognitive impairment? Patient is on Namenda plan is to continue-01/24: Continue Namenda, no acute complaints, continue Risperdal as well * Overactive bladder-Continue home solifenacin-01/24: Presently has No in place-01/25: Home Solifenacin held per urology * History of TIA-Continue aspirin-01/24: Continuing aspirin and statin * Depression/anxiety-Continue home risperidone and Ativan-01/24: Patient did not report any acute complaints-01/25: Patient had not been receiving Ativan, will hold as there is concerned that this could adversely affect her mental status if given VTE prophylaxis: SQ heparin. Disposition: to [facility] Medications at Discharge Home Medications levothyroxine 50 mcg tablet 50 mcg PO DAILY doc orderd 08/20/19 metoprolol tartrate 25 mg tablet [address] ordered 08/20/19 aspirin 81 mg tablet 81 mg PO DAILY daily 05/24/22 carbidopa 25 mg-levodopa 100 mg tablet 1.[address] ordered 05/24/22 glipizide 2.5 mg tablet, extended release 24 hr 2.[address] ordered 05/24/22 memantine 10 mg tablet [address] ordered 05/24/22 risperidone 0.5 mg tablet 0.[address] ordered 05/24/22 solifenacin 5 mg tablet [address] ordered 05/24/22 atorvastatin 10 mg tablet 10 mg PO DAILY 01/22/24 tolterodine 2 mg capsule,extended release 24 hr 2 mg PO DAILY 01/22/24 acetaminophen 325 mg tablet 650 mg (2 x 325 mg) PO Q6H PRN PRN Pain 1-10 Or Fever>100.7 #0 tabs 01/28/24 ciprofloxacin HCl 500 mg tablet (Cipro) 500 mg PO .q48 #2 tabs 01/28/24 melatonin 3 mg tablet 3 mg PO QHS PRN PRN Insomnia #0 tabs 01/28/24 nystatin 100,000 unit/gram topical powder (Nyamyc) 1 applic topical BID #0 grams 01/28/24 polyethylene glycol 3350 17 gram/dose oral powder (Miralax) 17 g PO DAILY #119 grams 01/28/24 psyllium husk (aspartame) 3 gram oral powder packet (Daily Fiber (psyllium- aspartame)) 1 packet PO TID #0 ea 01/28/24 sennosides 8.6 mg-docusate sodium 50 mg tablet (Stimulant Laxative Plus) 2 tab PO BID #0 tabs 01/28/24 Hospital Course Operations - (ystoscopy with bilateral ureteral stent insertion, fecal disimpaction) Procedures None Summary of Care Provided Minutes Spent on Discharge: 32 Weight / BMI Weight Weight: 58.7 kg Body Mass Index (BMI) 23.8 ABG / Lab / Microbiology Data 01/29/24 05:34 01/29/24 05:34 Laboratory: Laboratory Results - last 24 hr 01/28/24 12:28: POC Glucose 195 H 01/28/24 16:03: POC Glucose 184 H 01/28/24 21:54: POC Glucose 141 H 01/29/24 05:34: WBC 12.4 H, RBC 3.37 L, Hgb 9.5 L, Hct 30.7 L, MCV 91.1, MCH 28.2, MCHC 30.9 L, RDW Std Deviation 46.9 H, RDW Coeff of Festus 14.0, Plt Count 330, MPV 9.9, Immature Gran % (Auto) 3.800 H, Neut % (Auto) 64.2, Lymph % (Auto) 21.0, Lynn % (Auto) 7.0, Eos % (Auto) 3.4, Baso % (Auto) 0.6, Absolute Neuts (auto) 7.9 H, Absolute Lymphs (auto) 2.60, Nucleated RBC % 0, Sodium 142, Potassium 3.9, Chloride 114 H, Carbon Dioxide 22.0, Anion Gap 5, BUN 23 H, C reatinine 1.55 H, Estim Creat Clear Calc 25.03, Est GFR (MDRD) Af Amer 42 L, Est GFR (MDRD) Non-Af 34 L, BUN/Creatinine Ratio 14.8, Glucose 140 H, Calcium 9.2 01/29/24 06:35: POC Glucose 144 H Microbiology: Microbiology 01/22/24 13:40 Blood Culture (Wb) - Anticubital Left Blood Culture - Final No growth in 5 days. 01/22/24 15:34 Urine Catheter - No Urine Culture - Final Pseudomonas aeruginosa Meaningful Use Info Meaningful Use Meaningful Use Diagnoses (Choose all that apply): None applicable Ischemic Stroke Statin Dosing Therapy Reference: STATIN DOSE THERAPY REFERENCE: * Patients > 75 years receive moderate or high dose statin therapy. * Patients 75 years or YOUNGER should receive HIGH intensity statin dose unless contraindicated. You will be required to document reason for non-treatment if statin daily dose does not meet guidelines. HIGH DOSE STATIN THERAPY DAILY Atorvastatin > than or = to 40 mg Rosuvastatin > than or = to 20 mg Amlodipine + Atorvastatin > than or = to 2.5/40 mg Ezetimibe + Simvastatin 10/80 mg Simvastatin 80mg Discharge Plan Admission Admit Date/Time: 01/22/24 17:45 Primary Reason for Your Visit: Sepsis. UTI. Hydronephrosis. Attending Provider: Manjit Stephens Primary Care Provider: Toi Ocampo Consulting Providers: Sanam Ramirez; Renzo Tavares; Samreen Joy Discharge Orders/Prescriptions Prescriptions: New acetaminophen 325 mg Tablet 650 mg PO Q6H PRN PRN (Reason: Pain 1-10 Or Fever>100.7) Qty: 0 0RF melatonin 3 mg Tablet 3 mg PO QHS PRN PRN (Reason: Insomnia) Qty: 0 0RF nystatin [Nyamyc] 100,000 unit/gram Powder 1 applic topical BID Qty: 0 0RF Protocol: *Topical Application Instructions APPLICATION INSTRUCTIONS: under breasts Daily Fiber (psyllium-aspart) 3 gram Powder In Packet 1 packet PO TID Qty: 0 0RF sennosides-docusate sodium [Stimulant Laxative Plus] 8.6-50 mg Tablet 2 tab PO BID Qty: 0 0RF polyethylene glycol 3350 [Miralax] 17 gram/dose powder 17 g PO DAILY Qty: 119 0RF ciprofloxacin HCl [Cipro] 500 mg tablet 500 mg PO .q48 Qty: 2 0RF Continued levothyroxine 50 MCG tablet 50 mcg PO DAILY metoprolol tartrate 25 MG tablet 25 mg PO BID glipizide 2.5 mg tablet extended release 24hr 2.5 mg PO DAILY Patient Comments: Take 1 tablet by mouth daily with breakfast. Rx Instructions: with breakfast aspirin 81 mg Tablet 81 mg PO DAILY Rx Instructions: INSTRUCTED TO STOP 5 DAYS PRIOR TO OR carbidopa-levodopa 25-100 mg tablet 1.5 tab PO TID Patient Comments: Take 1 and 1/2 tablets by mouth every morning AND 1 and 1/2 tablets every afternoon AND 1 and 1/2 tablets every evening. (8AM, Noon, 4PM).. memantine 10 mg tablet 10 mg PO BID Patient Comments: Take 1 tablet by mouth twice daily. solifenacin 5 mg tablet 5 mg PO DAILY Patient Comments: Take 1 tablet by mouth once daily. risperidone 0.5 mg tablet 0.5 mg PO BID Patient Comments: Take 1 tablet by mouth twice daily. tolterodine 2 mg capsule,extended release 24hr 2 mg PO DAILY atorvastatin 10 mg tablet 10 mg PO DAILY Discontinued lorazepam 0.5 MG tablet 0.5 mg PO QHS PRN (Reason: anxiety) Qty: 3 0RF Rx Instructions: take 1-2 tablets by mouth daily at bedtime metformin 500 mg tablet 500 mg PO BID Referrals / Follow Up: Sanam Ramirez MD [Med Staff - Active Staff] - Within 2 Weeks Toi Ocampo MD [Primary Care Provider] - Within 2 Weeks Dannielle John MD [Med Staff - Livestock Broker] - Disposition Disposition (needs filled in before D/C Order can be placed): [facility] Facility Charges/Coding Visit Charges Inpatient E&M: 17528 Disch Hosp
--- NOTE | 2024-01-29 12:28 | CASEMGMT ---
Discharge Planning Discharge orders, signed med list, loc, and transport time sent to [facility] via [facility]. Physicians will transport patient by cot at 3p. Nursing, SW, patient, and her updated. Shirley Perry DC Planning Asst.
[2024-01-29 13:24] LABS: Bedside Glucose 162 mg/dL (74-106)
[2024-01-29] MEDS: Nystatin Powder 15gm Bottle 1 APPLIC TOPICAL (14:10)
[2024-01-29] MEDS: Insulin Lispro 100 UNIT/ML INSULN.PEN SC ×2 (14:11→16:49)
--- NOTE | 2024-01-29 15:27 | CASEMGMT ---
Message to Lamar that pt is dc'ing today to [facility].
[2024-01-29 16:59] VITALS: BP 106/71; PULSE 81; RESP 17; TEMP 37.2; O2SAT 96
[2024-01-29 17:18] LABS: Bedside Glucose 167 mg/dL (74-106)
--- NOTE | 2024-01-29 19:04 | NURSING ---
Report given to Elisha LANE at [facility] at this time.
== END 2024-01-29 18:54 | disposition skilled nursing facility (03) | DRG 659 ==
LOC: ED 18:12 → ICU 18:26 → MS3 01-25 06:56 → ICU 01-25 13:37
PROVIDERS: Internal Medicine; Nurse Practitioner; Urology; Admitting Provider Internal Medicine; Emergency Provider Emergency Medicine
PROC: 0T788DZ Dilation of Bilateral Ureters with Intraluminal Device, Via Natural or Artificial Opening Endoscopic (ICD-10-PCS; CPT 52332; principal; 2024-01-23 10:15)
DX: T83.511A Infection and inflammatory reaction due to indwelling urethral catheter, initial encounter (principal); A41.52 Sepsis due to Pseudomonas; N17.9 Acute kidney failure, unspecified; N13.6 Pyonephrosis; N25.89 Other disorders resulting from impaired renal tubular function; E11.22 Type 2 diabetes mellitus with diabetic chronic kidney disease; N18.30 Chronic kidney disease, stage 3 unspecified; G20.C Parkinsonism, unspecified; E03.9 Hypothyroidism, unspecified; F32.A Depression, unspecified; I12.9 Hypertensive chronic kidney disease with stage 1 through stage 4 chronic kidney disease, or unspecified chronic kidney disease; E78.5 Hyperlipidemia, unspecified; G31.84 Mild cognitive impairment of uncertain or unknown etiology; I25.10 Atherosclerotic heart disease of native coronary artery without angina pectoris; Z79.4 Long term (current) use of insulin; G25.2 Other specified forms of tremor; K59.00 Constipation, unspecified; Z79.82 Long term (current) use of aspirin; Z66 Do not resuscitate; Z87.891 Personal history of nicotine dependence; Z79.84 Long term (current) use of oral hypoglycemic drugs; N32.81 Overactive bladder; Z79.01 Long term (current) use of anticoagulants; Z86.73 Personal history of transient ischemic attack (TIA), and cerebral infarction without residual deficits
CPT/HCPCS: 36415; 70450; 73130; 74176; 76000; 80048; 80053; 81001; 82962; 83605; 85025; 85610; 85730; 87040; 87077; 87086; 87088; 87186; 93005; 94760; 97162; 97166; 97530; 97535; 99285; J7030; J7050; A4216; C2617; J0744; J2405

== ENCOUNTER → 2024-02-22 | Outpatient (REF) | payer MEDICARE, MEDICAID, SELFPAY ==
[2024-02-22 09:40] LABS: Hematocrit 34.5 % (37-47); Hemoglobin 10.7 g/dL (12.0-15.0); Mean Corpuscular Hgb 27.9 pg (27.0-32.0); Mean Corpuscular Volume 90.1 fL (81-99); Mean Platelet Vol. 11.2 fl (6.2-12.0); Platelet Count 304 K/mm3 (150-450); RBC Distribution Width CV 13.2 % (11.6-14.6); RBC Distribution Width SD 43.7 fl (35.1-43.9); Red Blood Count 3.83 M/mm3 (4.2-5.4); White Blood Count 9.3 K/mm3 (4.4-11.0)
[2024-02-22 10:20] LABS: Anion Gap 5 (5-15); BUN 21 mg/dL (7-18); BUN/Creat Ratio 14.3 RATIO (10-20); Calcium,Total 9.2 mg/dL (8.5-10.1); Chloride 110 mmol/L (98-107); Creatinine, Serum 1.47 mg/dL (0.55-1.02); EST Glomerular Filtration Rate 37 mL/min (>60); Est Glom Filt Rate - Afr Amer 44 mL/min (>60); Glucose 127 mg/dL (74-106); Potassium 4.3 mmol/L (3.5-5.1); Sodium Level 141 mmol/L (136-145)
== END ==
LOC: OLS.WCC 04:00
PROVIDERS: Referring Provider Family Medicine; Visit Provider Family Medicine
DX: D64.9 Anemia, unspecified (principal); F03.90 Unspecified dementia, unspecified severity, without behavioral disturbance, psychotic disturbance, mood disturbance, and anxiety; I10 Essential (primary) hypertension; Z79.899 Other long term (current) drug therapy
CPT/HCPCS: 36415; 80048; 85027

== ENCOUNTER → 2024-03-07 | Outpatient (REF) | payer MEDICARE, MEDICAID, SELFPAY ==
[2024-03-07 08:05] LABS: Hematocrit 34.1 % (37-47); Hemoglobin 10.5 g/dL (12.0-15.0); Mean Corp Hgb Conc 30.8 g/dL (32-36); Mean Corpuscular Hgb 26.6 pg (27.0-32.0); Mean Corpuscular Volume 86.5 fL (81-99); Mean Platelet Vol. 11.3 fl (6.2-12.0); Platelet Count 315 K/mm3 (150-450); RBC Distribution Width CV 13.2 % (11.6-14.6); RBC Distribution Width SD 41.6 fl (35.1-43.9); Red Blood Count 3.94 M/mm3 (4.2-5.4); White Blood Count 6.5 K/mm3 (4.4-11.0)
[2024-03-07 08:20] LABS: Anion Gap 7 (5-15); BUN 23 mg/dL (7-18); Calcium,Total 9.2 mg/dL (8.5-10.1); Chloride 106 mmol/L (98-107); Creatinine, Serum 1.53 mg/dL (0.55-1.02); EST Glomerular Filtration Rate 35 mL/min (>60); Est Glom Filt Rate - Afr Amer 42 mL/min (>60); Glucose 112 mg/dL (74-106); Potassium 3.7 mmol/L (3.5-5.1); Sodium Level 138 mmol/L (136-145)
== END ==
LOC: OLS.WCC 04:00
PROVIDERS: Referring Provider Family Medicine; Visit Provider Family Medicine
DX: D64.9 Anemia, unspecified (principal); F03.90 Unspecified dementia, unspecified severity, without behavioral disturbance, psychotic disturbance, mood disturbance, and anxiety; Z79.899 Other long term (current) drug therapy
CPT/HCPCS: 36415; 80048; 85027

== ENCOUNTER → 2024-03-09 | Outpatient (REF) | payer MEDICARE, MEDICAID, SELFPAY ==
[2024-03-09 08:16] LABS: Hematocrit 32.2 % (37-47); Hemoglobin 10.1 g/dL (12.0-15.0); Mean Corp Hgb Conc 31.4 g/dL (32-36); Mean Corpuscular Hgb 26.8 pg (27.0-32.0); Mean Corpuscular Volume 85.4 fL (81-99); Platelet Count 323 K/mm3 (150-450); RBC Distribution Width CV 13.3 % (11.6-14.6); RBC Distribution Width SD 41.2 fl (35.1-43.9); Red Blood Count 3.77 M/mm3 (4.2-5.4); White Blood Count 6.8 K/mm3 (4.4-11.0)
[2024-03-09 09:35] LABS: Anion Gap 4 (5-15); BUN 21 mg/dL (7-18); BUN/Creat Ratio 15.9 RATIO (10-20); Calcium,Total 9.2 mg/dL (8.5-10.1); Chloride 106 mmol/L (98-107); Creatinine, Serum 1.32 mg/dL (0.55-1.02); EST Glomerular Filtration Rate 41 mL/min (>60); Est Glom Filt Rate - Afr Amer 50 mL/min (>60); Glucose 119 mg/dL (74-106); Potassium 3.9 mmol/L (3.5-5.1); Sodium Level 136 mmol/L (136-145)
== END ==
LOC: OLS.WCC 07:10
PROVIDERS: Visit Provider Family Medicine
DX: I12.9 Hypertensive chronic kidney disease with stage 1 through stage 4 chronic kidney disease, or unspecified chronic kidney disease (principal); E78.5 Hyperlipidemia, unspecified; N13.2 Hydronephrosis with renal and ureteral calculous obstruction; N18.31 Chronic kidney disease, stage 3a; E87.6 Hypokalemia
CPT/HCPCS: 36415; 80048; 85027

== ENCOUNTER → 2024-03-15 | Outpatient (REF) | payer MEDICARE, MEDICAID, SELFPAY ==
[2024-03-15 08:18] LABS: Hematocrit 32.9 % (37-47); Hemoglobin 10.1 g/dL (12.0-15.0); Mean Corp Hgb Conc 30.7 g/dL (32-36); Mean Corpuscular Hgb 25.9 pg (27.0-32.0); Mean Corpuscular Volume 84.4 fL (81-99); Mean Platelet Vol. 10.7 fl (6.2-12.0); Platelet Count 334 K/mm3 (150-450); RBC Distribution Width CV 13.5 % (11.6-14.6); RBC Distribution Width SD 41.4 fl (35.1-43.9)
[2024-03-15 09:08] LABS: Anion Gap 7 (5-15); BUN 24 mg/dL (7-18); BUN/Creat Ratio 14.1 RATIO (10-20); Calcium,Total 9.4 mg/dL (8.5-10.1); Chloride 108 mmol/L (98-107); EST Glomerular Filtration Rate 31 mL/min (>60); Est Glom Filt Rate - Afr Amer 37 mL/min (>60); Glucose 114 mg/dL (74-106); Potassium 4.1 mmol/L (3.5-5.1); Sodium Level 139 mmol/L (136-145)
== END ==
LOC: OLS.WCC 07:10
PROVIDERS: Visit Provider Family Medicine
DX: D64.9 Anemia, unspecified (principal); F03.90 Unspecified dementia, unspecified severity, without behavioral disturbance, psychotic disturbance, mood disturbance, and anxiety; Z79.899 Other long term (current) drug therapy
CPT/HCPCS: 36415; 80048; 85027

== ENCOUNTER → 2024-03-18 | Outpatient (REF) | payer MEDICARE, MEDICAID, SELFPAY ==
[2024-03-18 08:25] LABS: Bacteria 0 SEEN /hpf (None Seen); Mucous, Urine 0 SEEN /hpf (<or=2+); Red Blood Cells-Urine 0 SEEN /hpf (0-5); Squamous Epithelial Cells - UA 0 SEEN /hpf (5-10)
[2024-03-18 08:45] LABS: Color, Urine Yellow (Yellow); Glucose, Dipstick Normal (Normal); Ketone-Dipstick 5 mg/dl (Negative); Leukocyte Esterase-Dipstick 500 /ul (Negative); Nitrite-Dipstick Positive (Negative); Occult Blood-Urine 250 /ul (Negative); Protein-Dipstick 100 mg/dl (Negative); Urine Bilirubin Dipstick Negative (Negative); Urine Clarity Turbid (Clear); Urine Urobilinogen Normal (Normal)
[2024-03-18 08:54] LABS: White Blood Cells >100 SEEN /hpf (0-5)
== END ==
LOC: OLS.WCC 07:20
PROVIDERS: Visit Provider Family Medicine
DX: N39.0 Urinary tract infection, site not specified (principal); N13.2 Hydronephrosis with renal and ureteral calculous obstruction
CPT/HCPCS: 81001; 87077; 87086; 87088; 87186

== ENCOUNTER → 2024-03-21 | Outpatient (REF) | payer MEDICARE, MEDICAID, SELFPAY ==
[2024-03-21 08:36] LABS: Hemoglobin 9.3 g/dL (12.0-15.0); Mean Corpuscular Hgb 25.5 pg (27.0-32.0); Mean Corpuscular Volume 84.9 fL (81-99); Platelet Count 328 K/mm3 (150-450); RBC Distribution Width CV 13.7 % (11.6-14.6); Red Blood Count 3.65 M/mm3 (4.2-5.4); White Blood Count 8.5 K/mm3 (4.4-11.0)
[2024-03-21 09:14] LABS: Anion Gap 5 (5-15); BUN 22 mg/dL (7-18); BUN/Creat Ratio 13.7 RATIO (10-20); Calcium,Total 9.3 mg/dL (8.5-10.1); Chloride 108 mmol/L (98-107); Creatinine, Serum 1.61 mg/dL (0.55-1.02); EST Glomerular Filtration Rate 33 mL/min (>60); Est Glom Filt Rate - Afr Amer 40 mL/min (>60); Glucose 118 mg/dL (74-106); Potassium 4.4 mmol/L (3.5-5.1); Sodium Level 140 mmol/L (136-145)
== END ==
LOC: OLS.WCC 05:00
PROVIDERS: Visit Provider Family Medicine
DX: N39.0 Urinary tract infection, site not specified (principal); I10 Essential (primary) hypertension
CPT/HCPCS: 36415; 80048; 85027

== ENCOUNTER → 2024-03-29 | Outpatient (REF) | payer MEDICARE, MEDICAID, SELFPAY ==
[2024-03-29 08:24] LABS: Hematocrit 31.3 % (37-47); Hemoglobin 9.4 g/dL (12.0-15.0); Mean Corpuscular Hgb 25.7 pg (27.0-32.0); Mean Corpuscular Volume 85.5 fL (81-99); Mean Platelet Vol. 11.3 fl (6.2-12.0); Platelet Count 306 K/mm3 (150-450); RBC Distribution Width CV 15.6 % (11.6-14.6); Red Blood Count 3.66 M/mm3 (4.2-5.4); White Blood Count 10.4 K/mm3 (4.4-11.0)
[2024-03-29 08:42] LABS: Anion Gap 3 (5-15); BUN 29 mg/dL (7-18); BUN/Creat Ratio 17.6 RATIO (10-20); Chloride 108 mmol/L (98-107); Creatinine, Serum 1.65 mg/dL (0.55-1.02); EST Glomerular Filtration Rate 32 mL/min (>60); Est Glom Filt Rate - Afr Amer 39 mL/min (>60); Glucose 126 mg/dL (74-106); Potassium 4.2 mmol/L (3.5-5.1); Sodium Level 139 mmol/L (136-145)
== END ==
LOC: OLS.WCC 05:00
PROVIDERS: Visit Provider Family Medicine
DX: R53.83 Other fatigue (principal); Z79.899 Other long term (current) drug therapy
CPT/HCPCS: 36415; 80048; 85027

== ENCOUNTER → 2024-04-04 | Outpatient (REF) | payer MEDICARE, MEDICAID, SELFPAY ==
[2024-04-04 08:34] LABS: Hematocrit 32.1 % (37-47); Hemoglobin 9.8 g/dL (12.0-15.0); Mean Corp Hgb Conc 30.5 g/dL (32-36); Mean Corpuscular Hgb 25.9 pg (27.0-32.0); Mean Corpuscular Volume 84.7 fL (81-99); Mean Platelet Vol. 10.8 fl (6.2-12.0); Platelet Count 365 K/mm3 (150-450); RBC Distribution Width CV 16.1 % (11.6-14.6); RBC Distribution Width SD 48.8 fl (35.1-43.9); Red Blood Count 3.79 M/mm3 (4.2-5.4); White Blood Count 14.1 K/mm3 (4.4-11.0)
[2024-04-04 09:12] LABS: Anion Gap 5 (5-15); BUN 34 mg/dL (7-18); BUN/Creat Ratio 18.2 RATIO (10-20); Calcium,Total 8.9 mg/dL (8.5-10.1); Chloride 104 mmol/L (98-107); Creatinine, Serum 1.87 mg/dL (0.55-1.02); EST Glomerular Filtration Rate 28 mL/min (>60); Est Glom Filt Rate - Afr Amer 34 mL/min (>60); Glucose 162 mg/dL (74-106); Potassium 4.3 mmol/L (3.5-5.1); Sodium Level 136 mmol/L (136-145)
== END ==
LOC: OLS.WCC 05:00
PROVIDERS: Visit Provider Family Medicine
DX: I12.9 Hypertensive chronic kidney disease with stage 1 through stage 4 chronic kidney disease, or unspecified chronic kidney disease (principal); N18.31 Chronic kidney disease, stage 3a; N13.2 Hydronephrosis with renal and ureteral calculous obstruction; D63.1 Anemia in chronic kidney disease; E87.6 Hypokalemia
CPT/HCPCS: 36415; 80048; 85027

== ENCOUNTER → 2024-04-12 05:00 | Outpatient (REF) | payer MEDICARE, MEDICAID, SELFPAY ==
[2024-04-12 07:34] LABS: Hematocrit 37.6 % (37-47); Hemoglobin 11.3 g/dL (12.0-15.0); Mean Corp Hgb Conc 30.1 g/dL (32-36); Mean Corpuscular Hgb 25.2 pg (27.0-32.0); Mean Corpuscular Volume 83.7 fL (81-99); Mean Platelet Vol. 10.5 fl (6.2-12.0); Platelet Count 549 K/mm3 (150-450); RBC Distribution Width CV 15.9 % (11.6-14.6); RBC Distribution Width SD 46.8 fl (35.1-43.9); Red Blood Count 4.49 M/mm3 (4.2-5.4); White Blood Count 12.4 K/mm3 (4.4-11.0)
[2024-04-12 07:52] LABS: Anion Gap 8 (5-15); BUN 43 mg/dL (7-18); BUN/Creat Ratio 19.5 RATIO (10-20); Calcium,Total 9.7 mg/dL (8.5-10.1); Chloride 104 mmol/L (98-107); Creatinine, Serum 2.21 mg/dL (0.55-1.02); EST Glomerular Filtration Rate 23 mL/min (>60); Est Glom Filt Rate - Afr Amer 28 mL/min (>60); Glucose 153 mg/dL (74-106); Potassium 4.6 mmol/L (3.5-5.1); Sodium Level 136 mmol/L (136-145)
== END ==
LOC: OLS.WCC 05:00
PROVIDERS: Visit Provider Family Medicine
DX: I10 Essential (primary) hypertension (principal); N13.2 Hydronephrosis with renal and ureteral calculous obstruction; N18.31 Chronic kidney disease, stage 3a; D63.1 Anemia in chronic kidney disease; E87.6 Hypokalemia
CPT/HCPCS: 36415; 80048; 85027

== ENCOUNTER → 2024-04-15 05:00 | Outpatient (REF) | payer MEDICARE, MEDICAID, SELFPAY ==
[2024-04-15 09:22] LABS: Anion Gap 5 (5-15); BUN 22 mg/dL (7-18); BUN/Creat Ratio 17.9 RATIO (10-20); Calcium,Total 8.5 mg/dL (8.5-10.1); Chloride 116 mmol/L (98-107); Creatinine, Serum 1.23 mg/dL (0.55-1.02); EST Glomerular Filtration Rate 45 mL/min (>60); Est Glom Filt Rate - Afr Amer 54 mL/min (>60); Glucose 107 mg/dL (74-106); Potassium 3.9 mmol/L (3.5-5.1); Sodium Level 143 mmol/L (136-145)
== END ==
LOC: OLS.WCC 05:00
PROVIDERS: Visit Provider Family Medicine
DX: Z79.899 Other long term (current) drug therapy (principal); Z51.81 Encounter for therapeutic drug level monitoring
CPT/HCPCS: 36415; 80048

== ENCOUNTER 2024-04-19 09:42 | Inpatient (IN) | payer MEDICARE, MEDICAID, SELFPAY ==
[2024-04-19] VITALS (31 sets, daily range): BP systolic 65–130; BP diastolic 35–90; PULSE 78–114; RESP 16–30; TEMP 36.3–37.2; O2SAT 89–100; BMI 23.6; BMI 23.4
--- NOTE | 2024-04-19 09:53 | EX.ED.DYSGE1 ---
HPI History of Present Illness Chief Complaint: Weakness [facility] Medical History Constipation Bilateral hydronephrosis Bacteremia due to coagulase-negative Staphylococcus CKD (chronic kidney disease), stage III Chronic anemia Hypothyroidism History of TIA (transient ischemic attack) Anxiety and depression Former tobacco use Urinary incontinence Parkinson's disease Wears dentures Diabetes Walker as ambulation aid Back pain History of heart attack CAD (coronary artery disease) HLD (hyperlipidemia) GERD (gastroesophageal reflux disease) Type II diabetes mellitus Benign essential hypertension Home Medications ?Medication ?Instructions ?Recorded ?Last Taken ?Type levothyroxine 50 mcg tablet 50 mcg PO DAILY doc orderd 08/20/19 01/17/23 History metoprolol tartrate 25 mg tablet [address] ordered 08/20/19 01/17/23 History aspirin 81 mg tablet 81 mg PO DAILY daily 05/24/22 01/17/23 History carbidopa 25 mg-levodopa 100 mg 1.[address] ordered 05/24/22 01/17/23 History tablet glipizide 2.5 mg tablet, extended 2.[address] ordered 05/24/22 01/17/23 History release 24 hr memantine 10 mg tablet [address] ordered 05/24/22 01/17/23 History risperidone 0.5 mg tablet 0.[address] ordered 05/24/22 01/17/23 History atorvastatin 10 mg tablet 10 mg PO DAILY 01/22/24 Unknown History acetaminophen 325 mg tablet 650 mg (2 x 325 mg) PO Q6H PRN PRN 01/28/24 Unknown Rx Pain 1-10 Or Fever>100.7 #0 tabs melatonin 3 mg tablet 3 mg PO QHS PRN PRN Insomnia #0 01/28/24 Unknown Rx tabs nystatin 100,000 unit/gram topical 1 applic topical BID #0 grams 01/28/24 Unknown Rx powder (Nyamyc) polyethylene glycol 3350 17 17 g PO DAILY #119 grams 01/28/24 Unknown Rx gram/dose oral powder (Miralax) psyllium husk (aspartame) 3 gram 1 packet PO TID #0 ea 01/28/24 Unknown Rx oral powder packet (Daily Fiber (psyllium-aspartame)) sennosides 8.6 mg-docusate sodium 2 tab PO BID #0 tabs 01/28/24 Unknown Rx 50 mg tablet (Stimulant Laxative Plus) Allergy/AdvReac Type Severity Reaction Status Date / Time No Known Allergies Allergy Verified 12/15/23 15:23 Family History Mother Heart disease Hypertension Father No problems noted. Surgical History History of ureteroscopy History of cystoscopy Hx of CABG Social History household members: spouse housing: house Smoking Status: Former smoker alcohol intake: never substance use type: does not use EXAM Physical Exam Const Vital Signs: 04/19/24 09:44 04/19/24 10:12 04/19/24 10:16 Temperature 98.5 F Temperature Source Oral Pulse Rate 98 91 Respiratory Rate 30 H Blood Pressure 72/49 L 65/42 L Blood Pressure Mean 56 49 Pulse Ox 95 89 Oxygen Delivery Method Room Air Room Air Room Air Oxygen Flow Rate (L/min) 04/19/24 10:28 04/19/24 10:36 04/19/24 12:00 Temperature 98.1 F Temperature Source Oral Pulse Rate 79 95 Respiratory Rate 20 H Blood Pressure 68/35 L 86/41 L 101/48 L Blood Pressure Mean 46 56 65 Pulse Ox 97 Oxygen Delivery Method Nasal Cannula Oxygen Flow Rate (L/min) 2 04/19/24 13:00 04/19/24 13:38 04/19/24 13:53 Temperature 97.4 F L 98 F Temperature Source Temporal Temporal Pulse Rate 89 95 94 Respiratory Rate 19 H 20 H 20 H Blood Pressure 116/62 130/90 H Blood Pressure Mean 80 103 Pulse Ox 97 98 97 Oxygen Delivery Method Room Air Nasal Cannula Nasal Cannula Oxygen Flow Rate (L/min) 2 04/19/24 14:00 Temperature Temperature Source Pulse Rate 94 Respiratory Rate 19 H Blood Pressure 130/90 H Blood Pressure Mean 103 Pulse Ox 97 Oxygen Delivery Method Nasal Cannula Oxygen Flow Rate (L/min) Sepsis Attestation Sepsis Alert: Yes Sepsis Attestation: Agree w/Sepsis Date exam was performed: 04/19/24 Time exam was performed: 10:22 Possible Source of Sepsis: Genitourinary Sepsis Organ Dysfunction Criteria Present: SBP < 90 mmHg or MAP < 65 mmHg and Creatinine > 2.0 mg/dL Fluid Resuscitation Fluid resuscitation indicated?: Yes Fluid Resuscitation ordered: 30 ml/kg fluid bolus ordered Amount of fluid ordered: 2,000 Sepsis Note Date exam was performed: 04/19/24 Time exam was performed: 11:00 Sepsis Attestation: Sepsis re-evaluation was performed Response to fluids: Vasopressors started [facility] MDM Narrative Medical decision making narrative: HISTORY OF PRESENT ILLNESS: 78-year-old female sent in by PCP from Health system with concern for white blood cell count of 30,000. Notes history of UTI and hypotension. They note the patient is DNR CCA. The patient states his alternatives are provide lab history. REVIEW OF SYSTEMS: Unable to obtain reliable review of system secondary to altered mental status PHYSICAL EXAM: Nursing triage notes reviewed, Vital signs reviewed Constitutional: please see mdm HENT: Dry mucous membrane Eyes: Pupils equal round and reactive to light, Extraocular muscles intact Neck: No stridor, no JVD, full neck ROM Lungs: Clear to auscultation, Heart: Regular rate and rhythm, Abdomen: Soft, lower abdominal TTP : Purulent urine appears to be coming from the urethra Extremities: No edema Neuro: Patient is alert, oriented to person but not place or time. Appears to have sensation all 4 extremities, moves all 4 extremities. Skin: No rash or lesions noted MEDICAL DECISION MAKING: Chief Complaint: Weakness External records reviewed: CBC showed leukocytosis 32,000, mild stable anemia, BMP showed hyponatremia 134 as well as acute kidney injury on CKD with creatinine of 2.39 uptrending from prior creatinine 1.23. Also reviewed prior operative note from urologist Dr. Ramirez in which the patient had bilateral hydronephrosis with UTI sepsis and fecal impaction. During this procedure patient underwent fecal disimpaction and placed to 6 Green[place]ic JJ stent Factors affecting care: type 2 diabetes, hypothyroidism, bilateral hydronephrosis, CKD, urinary incontinence, Parkinson's disease, CAD, Social determinants of health: n snf History obtained from others: EMS Consults: Internal medicine, Urology (Dr. Ramirez) [facility] Narrative: Patient was initially hypotensive with a blood pressure 72/49, tachypneic with a respiratory to 38, afebrile initially saturating 95% on room air. Appeared chronically ill, weak and cachectic. No focal deficits noted. Abdomen was tender in the lower quadrants. I considered the following differential diagnosis: UTI, sepsis, bacteremia, pneumonia, hemorrhagic shock. I would lower suspicion for neurogenic shock there is no report of trauma. Low suspicion for cardiogenic shock as the patient does not complain of chest pain had a nonischemic EKG. Sepsis order set was initiated. Blood cultures were drawn, urine and urine cultures were drawn. Source control was initiated with removal of No catheter. To removal of No catheter he noted purulent urine. We tried to replace the patient's No catheter however this was difficult. ALL IMAGES (IF OBTAINED) HAVE BEEN PERSONALLY REVIEWED AND INTERPRETED BY MYSELF. EKG with normal sinus rhythm, normal axis, normal intervals (QTc 464), no STEMI UA consistent with infection Lactate and elevated consistent endorgan hypoperfusion CBC with marked leukocytosis suggestive of systemic inflammation, mild anemia, no thrombocytopenia No coagulopathy BMP with hyponatremia, hypokalemia, no sign of metabolic acidosis or endorgan hypoperfusion on BMP. Creatinine elevated consistent with endorgan hypoperfusion LFTs show no evidence of hepatobiliary pathology. High-sensitivity troponin is negative, no evidence of myocardial ischemia I have personally reviewed the patient's chest x-ray. Chest x-ray is unremarkable for pulmonary edema, pneumothorax, pneumonia or focal cardiopulmonary abnormality. CT scan abdomen pelvis shows no evidence of acute surgical intra-abdominal process The synthesis of the patient's history, physical exam, labs and images suggest likely urosepsis. I did communicate with the urologist who is aware the patient is here and can intervene if necessary. Also communicated with hospitalist who recommended ICU admission. Upon reassessment patient remained hypotensive despite adequate fluid resuscitation. Started pressors (Levophed) Procedure: Central line placement. Indication: Venous Access Consent: Healthcare agent A time out was completed. Maximal sterile barrier technique was used including cap, gown, sterile gloves, large sheet, hand washing and chlorhexidine prep. Anesthesia: The area anesthetized with 1% lidocaine. Procedure: The right IJ vein was punctured with a 19 gauge finder needle, then a wire introducer was placed, a 7 [place]ic triple lumen catheter was placed using Seldinger technique. There were no complications. Blood return was low pressure and non-pulsatile dark blood. Line secured in place with suture, and a sterile bio-occlusive dressing was applied. Patient tolerated procedure well. The procedure was performed by Mansoor Gayle DO The patient and/or family, caregivers express understanding. The patient and/or family, caregivers agrees with the plan. Shared decision making: I will have a discussion with the patient and or visitors regarding risk/benefits of further testing or admission. They will be made aware of of the risk/benefits inherent in this decision they will be given the opportunity to voice understanding. Total critical care time today provided was at least 60 minutes. This excludes separately billable procedures. Critical care time (if documented) is secondary to the patient having high probability of clinically significant/life threatening deterioration in the patient's condition which required my urgent intervention. Impression: 1. Hypotension 2. Tachypnea Dispo: [] This note was generated with [employer] dictation software. It may contain incorrect words, spelling, and punctuation that were not noted in review of the chart prior to signing. Lab Data Labs: Laboratory Results - last 24 hr 04/19/24 04/19/24 10:00 13:28 WBC 35.7 H* RBC 4.12 L Hgb 10.7 L Hct 33.6 L MCV 81.6 MCH 26.0 L MCHC 31.8 L RDW Std Deviation 51.3 H RDW Coeff of Festus 17.8 H Plt Count 347 MPV 10.8 Immature Gran % (Auto) 1.700 H Neut % (Auto) 92.9 H Lymph % (Auto) 2.0 L [place] % (Auto) 3.1 Eos % (Auto) 0.0 Baso % (Auto) 0.3 Absolute Neuts (auto) 33.2 H Absolute Lymphs (auto) 0.73 L Nucleated RBC % 0 Differential Comment SCANNED Diff Path Review August foll PT 15.6 H INR 1.2 APTT 31.9 Sodium 133 L Potassium 5.3 H Chloride 102 Carbon Dioxide 21.0 Anion Gap 10 BUN 31 H Creatinine 2.66 H Estim Creat Clear Calc 13.37 Est GFR (MDRD) Af Amer 22 L Est GFR (MDRD) Non-Af 18 L BUN/Creatinine Ratio 11.7 Glucose 243 H Lactic Acid 2.0 Calcium 8.8 Total Bilirubin 0.70 AST 14 L ALT 12 L Alkaline Phosphatase 89 Troponin I High Sens 12 Total Protein 6.8 Albumin 1.9 L Globulin 4.9 H Albumin/Globulin Ratio 0.4 L Urine Color Yellow Urine Clarity Turbid Urine pH 6.0 Ur Specific [place] 1.010 Urine Protein 500 H Urine Glucose (UA) Normal Urine Ketones Negative Urine Occult Blood 250 H Urine Nitrite Positive H Urine Bilirubin Negative Urine Urobilinogen Normal Ur Leukocyte Esterase 500 H Urine RBC 5-10 SEEN Urine WBC >100 SEEN Ur Squamous Epith Cells 0 SEEN Urine Bacteria 1+ Urine Mucus 0 SEEN Radiography Diagnostic Testing: Clinical Impression(s) from Imaging Studies Abdomen/Pelvis CT 04/19/24 10:10 IMPRESSION: 1. Status post bilateral double-J stent catheters new since previous examination. 2. Bilateral hydronephrosis and postoperative previous exam. 3. Pockets of air in the right pelvicalyceal system could be secondary to the presence of stent. Otherwise infectious process cannot be excluded. 4. Nonspecific fluid-filled small bowel loops and ascending colon could be due to ileus. 5. Gallstones. 6. Atelectatic changes in the lower lungs and trace of left pleural effusion. Electronically Signed: Arian Veliz MD at 12:34 EST , Chest X-Ray 04/19/24 10:36 IMPRESSION: Chronic interstitial changes in both lung [place] without a superimposed acute pulmonary process. However, the left costophrenic angle is not included on this study and there is a suggestion of possible left basilar atelectasis and effusion. Electronically Signed: Adilson Harvey MD at 11:19 EST , Chest X-Ray 04/19/24 11:34 IMPRESSION: No acute pulmonary process Satisfactory appearance of a right IJ central venous catheter Electronically Signed: Adilson Harvey MD at 12:28 EST , Discharge Plan Disposition Disposition: Acute Care Hospital [facility] Discharge Date/Time: 04/19/24 14:55
--- NOTE | 2024-04-19 09:56 | EKG12_ITS ---
Test Reason : SEPSIS Blood Pressure : */* mmHG Vent. Rate : 92 BPM Atrial Rate : 92 BPM P-R Int : 136 ms QRS Dur : 72 ms QT Int : 376 ms P-R-T Axes : 54 28 99 degrees QTcB Int : 464 ms Sinus rhythm with Premature atrial complexes Low voltage QRS Nonspecific T wave abnormality Abnormal ECG Confirmed by WISAM LEIGH, COLIN ([id number]), marketing editor BREA OLEARY ([id number]) on 04/21/2024 6:10:03 AM Referred By: Confirmed By: COLIN JOEL MD
--- NOTE | 2024-04-19 10:10 | CT_ITS ---
INDICATION: abdominal pain EXAMINATION: CT ABDOMEN AND PELVIS WITHOUT CONTRAST - CT Abdomen And Pelvis W/O Contrast Injection TECHNIQUE: Helically acquired images were obtained of the abdomen and pelvis without oral or IV contrast. The protocol utilizes one or more of the following dose reduction techniques: automated exposure control, adjustment of mA and/or kV according to patient size,and/or use of iterative reconstruction technique. IV Contrast dosage and agent: None. Oral contrast: None. RADIATION DOSAGE (If Supplied By Facility): CTDIvol = ( 7.67 ) mGy, DLP = ( 406.38 ) mGycm COMPARISON: Prior study dated: 01/22/2024 FINDINGS: LOWER CHEST: Atelectatic changes in lung bases. Trace of left pleural effusion. No cardiomegaly or pericardial effusion. Coronary calcifications. LIVER: Homogeneous. No focal lesion is seen without contrast. GALLBLADDER AND BILIARY TREE: Calcified gallstones. No gallbladder distension or wall edema. No intra- or extrahepatic biliary ductal dilation. PANCREAS: No focal cystic or solid mass. SPLEEN: Normal size without focal cystic or solid mass. ADRENAL GLANDS: No nodules. KIDNEYS AND URETERS: Bilateral double-J stent catheters are seen new since the previous examination extending to the bladder. Moderate bilateral hydronephrosis improved since previous examination. Pockets of air in the right collecting system and in the bladder could be due to to presence of stents. PERITONEUM: No ascites or free air. No other fluid collection. BOWEL: The appendix is not identified at this time. Nonspecific fluid-filled small bowel loops and ascending colon. No focal inflammatory change. LYMPH NODES: No enlarged mesenteric or retroperitoneal lymph nodes. VESSELS: Aorta is non-dilated. URINARY BLADDER: The bladder is not distended. REPRODUCTIVE ORGANS: Absent uterus consistent with previous hysterectomy. ABDOMINAL WALL: No discrete abdominal or pelvic wall hernia. BONES: No lytic or blastic abnormality. Degenerative changes. CT/Abdomen/Pelvis without Cont IMPRESSION: 1. Status post bilateral double-J stent catheters new since previous examination. 2. Bilateral hydronephrosis and postoperative previous exam. 3. Pockets of air in the right pelvicalyceal system could be secondary to the presence of stent. Otherwise infectious process cannot be excluded. 4. Nonspecific fluid-filled small bowel loops and ascending colon could be due to ileus. 5. Gallstones. 6. Atelectatic changes in the lower lungs and trace of left pleural effusion. Electronically Signed: Arian Veliz MD at 12:34 EST ,
[2024-04-19] MEDS: 0.9% Normal Saline (1000mL) 1,000 ML 999 ML IV ×3 (10:13→16:40)
[2024-04-19 10:15] LABS: Absolute Lymphocyte Count 0.73 X10^3/uL (0.83-4.51); Absolute Neutrophil Count 33.2 X10^3/uL (2.0-7.7); Basophil# 0.11 X10^3/uL; Basophil% 0.3 % (0-1); Hematocrit 33.6 % (37-47); Hemoglobin 10.7 g/dL (12.0-15.0); Lymphocyte # 0.73 X10^3/ul (0.83-4.51); Mean Corp Hgb Conc 31.8 g/dL (32-36); Mean Corpuscular Volume 81.6 fL (81-99); Mean Platelet Vol. 10.8 fl (6.2-12.0); Monocyte# 1.11 X10^3/uL; Monocyte% 3.1 % (0-10); NRBC Flagged by Analyzer 0 % (0-5); Neutrophil # 33.15 X10^3/uL (2.7-7.7); Neutrophil % 92.9 % (47-70); POSITIVE COUNT YES; POSITIVE DIFFERENTIAL YES; Platelet Count 347 K/mm3 (150-450); RBC Distribution Width CV 17.8 % (11.6-14.6); RBC Distribution Width SD 51.3 fl (35.1-43.9); Red Blood Count 4.12 M/mm3 (4.2-5.4)
[2024-04-19 10:17] LABS: Differential Indicated SCAN CRITERIA MET
[2024-04-19 10:18] LABS: White Blood Count 35.7 K/mm3 (4.4-11.0)
[2024-04-19 10:24] LABS: International Normalized Ratio 1.2; Prothrombin Time (Protime)PT. 15.6 SECONDS (11.7-14.9)
[2024-04-19 10:26] LABS: Partial Thromboplast Time 31.9 Seconds (24.1-36.2)
[2024-04-19 10:36] LABS: ALB/GLOB Ratio 0.4 RATIO (0.9-2.4); AST(SGOT) 14 U/L (15-37); Alanine Aminotransfer ALT/SGPT 12 U/L (13-56); Albumin, Serum 1.9 g/dL (3.2-5.0); Alkaline Phosphatase 89 U/L (45-117); Anion Gap 10 (5-15); BUN 31 mg/dL (7-18); BUN/Creat Ratio 11.7 RATIO (10-20); Calcium,Total 8.8 mg/dL (8.5-10.1); Chloride 102 mmol/L (98-107); Creatinine, Serum 2.66 mg/dL (0.55-1.02); EST Glomerular Filtration Rate 18 mL/min (>60); Est Glom Filt Rate - Afr Amer 22 mL/min (>60); Estimated Creatinine Clearance 13.37 ml/min; Globulin 4.9 g/dL (2.2-4.2); Glucose 243 mg/dL (74-106); Potassium 5.3 mmol/L (3.5-5.1); Protein, Total 6.8 g/dL (6.4-8.2); Sodium Level 133 mmol/L (136-145); Troponin-I HS 12 pg/mL (3.0-54.0)
[2024-04-19] MEDS: Norepinephrine 8 MG in 0.9% Normal Saline (250mL Bag) 242 ML 9.4 MG CONT INF (10:36)
--- NOTE | 2024-04-19 10:36 | RAD_ITS ---
STUDY: X-RAY CHEST REASON FOR EXAM: Female, 78 years old. Fever and cough TECHNIQUE: Single AP portable view of the chest. COMPARISON: 12/15/2023 FINDINGS: EKG leads overlie the chest. Stable elevation of the right hemidiaphragm. Interstitial changes in the lung [place] without a superimposed acute pulmonary process. The left costophrenic angle is not seen clearly on this study there is a suggestion of possible left pleural effusion. Sternal cerclage wires and vascular clips are present from a prior sternotomy and coronary artery bypass graft procedure (CABG). Normal mediastinum and mercy. Normal visualized pulmonary arteries. Normal visualized aortic arch and descending thoracic aorta. There are diffuse degenerative changes of the visualized thoracic spine. Normal visualized ribs, clavicles, and shoulders. There is no demonstrated abnormality of the visualized soft tissue structures of the upper abdomen. RAD/Chest 1 View (Portable) IMPRESSION: Chronic interstitial changes in both lung [place] without a superimposed acute pulmonary process. However, the left costophrenic angle is not included on this study and there is a suggestion of possible left basilar atelectasis and effusion. Electronically Signed: Adilson Harvey MD at 11:19 EST ,
[2024-04-19 10:40] LABS: Differential Comment SCANNED; Pathologist Review May foll
--- NOTE | 2024-04-19 10:45 | ED.RN ---
ATTEMPTED TO CALL PRISCILA HUGHES
--- NOTE | 2024-04-19 10:59 | ED.RN ---
PER DR. HAIRSTON TO GIVE ABX WITHOUT URINE SAMPLE
[2024-04-19] MEDS: Haloperidol Lactate 5 MG/ML Vial 2 MG IV (11:28)
[2024-04-19] MEDS: Vancomycin HCl 1,500 MG in 0.9% Normal Saline (500mL Bag) 500 ML 250 MG IV (11:30)
--- NOTE | 2024-04-19 11:34 | RAD_ITS ---
STUDY: X-RAY CHEST REASON FOR EXAM: Female, 78 years old. line placement TECHNIQUE: Single AP portable view of the chest. COMPARISON: Earlier today FINDINGS: Since the previous study, a right IJ central venous catheter has been placed, tip is in the distal SVC. Chronic interstitial changes without a superimposed acute pulmonary process. Sternal cerclage wires and vascular clips are present from a prior sternotomy and coronary artery bypass graft procedure (CABG). Normal mediastinum and mercy. Normal visualized pulmonary arteries. Normal visualized aortic arch and descending thoracic aorta. Normal visualized thoracic spine. Normal visualized ribs, clavicles, and shoulders. There is no demonstrated abnormality of the visualized soft tissue structures of the upper abdomen. RAD/Chest 1 View (Portable) IMPRESSION: No acute pulmonary process Satisfactory appearance of a right IJ central venous catheter Electronically Signed: Adilson Harvey MD at 12:28 EST ,
[2024-04-19 13:32] LABS: Mucous, Urine 0 SEEN /hpf (<or=2+); Squamous Epithelial Cells - UA 0 SEEN /hpf (5-10)
[2024-04-19] MEDS: Piperacil/Tazobactam 4.5 GM in 0.9% Normal Saline (100mL MB+) 100 ML IV (13:33)
[2024-04-19 13:44] LABS: Color, Urine Yellow (Yellow); Glucose, Dipstick Normal (Normal); Ketone-Dipstick Negative (Negative); Leukocyte Esterase-Dipstick 500 /ul (Negative); Nitrite-Dipstick Positive (Negative); Occult Blood-Urine 250 /ul (Negative); Protein-Dipstick 500 mg/dl (Negative); Urine Bilirubin Dipstick Negative (Negative); Urine Clarity Turbid (Clear); Urine Urobilinogen Normal (Normal)
[2024-04-19 13:50] LABS: Bacteria 1+ /hpf (None Seen); Red Blood Cells-Urine 5-10 SEEN /hpf (0-5); White Blood Cells >100 SEEN /hpf (0-5)
--- NOTE | 2024-04-19 14:03 | PCM.HP.STD ---
[facility] - General General Date of Admission: 04/19/24 Date of Service: 04/19/24 Chief Complaint: abnormal labs. HPI Narrative LOYDA GARCIA, is a 78 F who presents from her group home with abnormal labs. Patient is a history of a urinary tract infection and hydronephrosis. Admit admitted in January where she had stents placed at that time. Plan was to get her catheter but patient had severe constipation and actually to be disimpacted in the OR but so the catheter was left in. Plan was to follow-up with urology to have the stents removed which was originally planned to be next month. However with the patient's noted leukocytosis she was sent to the emergency room. In emergency room, her catheter was removed and was noted to be purulent and no other catheter was replaced. She became hypotensive received 30 cc/kg of IV fluids. Decision was made to initiate vasopressors. Right IJ triple-lumen catheter was placed in the emergency room and vasopressors were initiated blood pressure has since improved. Patient is awake but nonverbal at this time so history is obtained through the emergency room physician. Additionally, patient received vancomycin and pip-tazo in the emergency room. PENDING SALE TO [facility] Medical History (Updated 04/19/24 @ 16:[address] Sanam Ramirez MD) Bilateral hydronephrosis Constipation Bacteremia due to coagulase-negative Staphylococcus CKD (chronic kidney disease), stage III Chronic anemia Hypothyroidism History of TIA (transient ischemic attack) Anxiety and depression Former tobacco use Urinary incontinence Parkinson's disease Wears dentures Diabetes Walker as ambulation aid Back pain History of heart attack CAD (coronary artery disease) HLD (hyperlipidemia) GERD (gastroesophageal reflux disease) Type II diabetes mellitus Benign essential hypertension Home Medications ?Medication ?Instructions ?Recorded ?Last Taken ?Type levothyroxine 50 mcg tablet 50 mcg PO DAILY doc orderd 08/20/19 01/17/23 History metoprolol tartrate 25 mg tablet [address] ordered 08/20/19 01/17/23 History aspirin 81 mg tablet 81 mg PO DAILY daily 05/24/22 01/17/23 History carbidopa 25 mg-levodopa 100 mg 1.[address] ordered 05/24/22 01/17/23 History tablet glipizide 2.5 mg tablet, extended 2.[address] ordered 02/04/23 09/30/23 History release 24 hr memantine 10 mg tablet [address] ordered 05/24/22 01/17/23 History risperidone 0.5 mg tablet 0.[address] ordered 05/24/22 01/17/23 History atorvastatin 10 mg tablet 10 mg PO DAILY 01/22/24 Unknown History acetaminophen 325 mg tablet 650 mg (2 x 325 mg) PO Q6H PRN PRN 01/28/24 Unknown Rx Pain 1-10 Or Fever>100.7 #0 tabs melatonin 3 mg tablet 3 mg PO QHS PRN PRN Insomnia #0 01/28/24 Unknown Rx tabs nystatin 100,000 unit/gram topical 1 applic topical BID #0 grams 01/28/24 Unknown Rx powder (Nyamyc) polyethylene glycol 3350 17 17 g PO DAILY #119 grams 01/28/24 Unknown Rx gram/dose oral powder (Miralax) psyllium husk (aspartame) 3 gram 1 packet PO TID #0 ea 01/28/24 Unknown Rx oral powder packet (Daily Fiber (psyllium-aspartame)) sennosides 8.6 mg-docusate sodium 2 tab PO BID #0 tabs 01/28/24 Unknown Rx 50 mg tablet (Stimulant Laxative Plus) mirtazapine 30 mg tablet 30 mg PO QHS DEPRESSION 04/19/24 Unknown History Allergy/AdvReac Type Severity Reaction Status Date / Time No Known Allergies Allergy Verified 12/15/23 15:23 Family History Mother Heart disease Hypertension Father No problems noted. Surgical History History of ureteroscopy History of cystoscopy Hx of CABG Social History household members: spouse housing: house Smoking Status: Former smoker alcohol intake: never substance use type: does not use ROS Review of Systems ROS Unobtainable: due to encephalopathy Vital Signs Vital Signs Vital Signs: 04/19/24 09:44 04/19/24 10:12 04/19/24 10:16 Temperature 36.9 C Temperature Source Oral Pulse Rate 98 91 Respiratory Rate 30 H Blood Pressure 72/49 L 65/42 L Blood Pressure Mean 56 49 Pulse Ox 95 89 Oxygen Delivery Method Room Air Room Air Room Air Oxygen Flow Rate (L/min) 04/19/24 10:28 04/19/24 10:36 04/19/24 12:00 Temperature 36.7 C Temperature Source Oral Pulse Rate 79 95 Respiratory Rate 20 H Blood Pressure 68/35 L 86/41 L 101/48 L Blood Pressure Mean 46 56 65 Pulse Ox 97 Oxygen Delivery Method Nasal Cannula Oxygen Flow Rate (L/min) 2 04/19/24 13:00 04/19/24 13:38 Temperature 36.3 C L Temperature Source Temporal Pulse Rate 89 95 Respiratory Rate 19 H 20 H Blood Pressure 116/62 Blood Pressure Mean 80 Pulse Ox 97 98 Oxygen Delivery Method Room Air Nasal Cannula Oxygen Flow Rate (L/min) 2 Weight Weight: 56.8 kg Body Mass Index (BMI) 23.6 Physical Exam Narrative POCUS: Indication is for septic shock. IVC was visualized and was collapsible and small in caliber. On PLAX, apical and subxiphoid views of the heart showed wall motion grossly normal. No obvious pericardial effusions noted. Const Constitutional Narrative: Awake. Nontoxic. Does not follow commands. Opens eyes to voice. HEENT normocephalic, head/scalp atraumatic and moist oral mucous membranes Eyes Eyes Narrative: No icterus Neck no lymphadenopathy Neck Narrative: No thyromegaly Resp normal respiratory effort, no retractions and no use of accessory muscles Cardio regular rate, regular rhythm, S1 normal heart sound and S2 normal heart sound GI normal to inspection, nondistended, normoactive bowel sounds, soft to palpation, non-tender and non-distended Extremity normal to inspection and no clubbing, cyanosis or edema Neuro moves all extremities Sensorium / Orientation: awake; Negative for oriented to person, oriented to place or oriented to time Results Lab / Micro Data Attestation: I reviewed the patient's lab results. 04/19/24 10:00 04/19/24 10:00 Labs: Laboratory Results - last 24 hr 04/19/24 10:00: WBC 35.7 H*, RBC 4.12 L, Hgb 10.7 L, Hct 33.6 L, MCV 81.6, MCH 26.0 L, MCHC 31.8 L, RDW Std Deviation 51.3 H, RDW Coeff of Festus 17.8 H, Plt Count 347, MPV 10.8, Immature Gran % (Auto) 1.700 H, Neut % (Auto) 92.9 H, Lymph % (Auto) 2.0 L, [place] % (Auto) 3.1, Eos % (Auto) 0.0, Baso % (Auto) 0.3, Absolute Neuts (auto) 33.2 H, Absolute Lymphs (auto) 0.73 L, Nucleated RBC % 0, Differential Comment SCANNED, Diff Path Review August, PT 15.6 H, INR 1.2, APTT 31.9, Sodium 133 L, Potassium 5.3 H, Chloride 102, Carbon Dioxide 21.0, Anion Gap 10, BUN 31 H, Creatinine 2.66 H, Estim Creat Clear Calc 13.37, Est GFR (MDRD) Af Amer 22 L, Est GFR (MDRD) Non-Af 18 L, BUN/Creatinine Ratio 11.7, Glucose 243 H, Lactic Acid 2.0, Calcium 8.8, Total Bilirubin 0.70, AST 14 L, ALT 12 L, Alkaline Phosphatase 89, Troponin I High Sens 12, Total Protein 6.8, Albumin 1.9 L, Globulin 4.9 H, Albumin/Globulin Ratio 0.4 L 04/19/24 13:28: Urine Color Yellow, Urine Clarity Turbid, Urine pH 6.0, Ur Specific [place] 1.010, Urine Protein 500 H, Urine Glucose (UA) Normal, Urine Ketones Negative, Urine Occult Blood 250 H, Urine Nitrite Positive H, Urine Bilirubin Negative, Urine Urobilinogen Normal, Ur Leukocyte Esterase 500 H, Urine RBC 5-10 SEEN, Urine WBC >100 SEEN, Ur Squamous Epith Cells 0 SEEN, Urine Bacteria 1+, Urine Mucus 0 SEEN Imaging Radiology Impression Abdomen/Pelvis CT 04/19/24 10:10 IMPRESSION: 1. Status post bilateral double-J stent catheters new since previous examination. 2. Bilateral hydronephrosis and postoperative previous exam. 3. Pockets of air in the right pelvicalyceal system could be secondary to the presence of stent. Otherwise infectious process cannot be excluded. 4. Nonspecific fluid-filled small bowel loops and ascending colon could be due to ileus. 5. Gallstones. 6. Atelectatic changes in the lower lungs and trace of left pleural effusion. Electronically Signed: Arian Veliz MD at 12:34 EST , Chest X-Ray 04/19/24 10:36 IMPRESSION: Chronic interstitial changes in both lung [place] without a superimposed acute pulmonary process. However, the left costophrenic angle is not included on this study and there is a suggestion of possible left basilar atelectasis and effusion. Electronically Signed: Adilson Harvey MD at 11:19 EST , Chest X-Ray 04/19/24 11:34 IMPRESSION: No acute pulmonary process Satisfactory appearance of a right IJ central venous catheter Electronically Signed: Adilson Harvey MD at 12:28 EST , Assessment & Plan Assessment/Plan (1) Septic shock: PLAN: Likely secondary to catheter associated urinary tract infection Patient received vancomycin and pip-tazo in the emergency room. Will continue with pip-tazo moving forward as urine appears grossly infected. Patient received 30 cc/kg of IV fluids and has since been started on vasopressors. Right atrial troponin catheter was placed in the emergency room Follow-up cultures Later I did POCUS evaluate IVC and the heart and different views and feel the patient would benefit from additional IV fluids so patient received an additional liter bolus of fluids. (2) Catheter-associated urinary tract infection: PLAN: Catheter discontinued and new catheter was replaced on the in the emergency room. Concerned that her stents may be infected. Discussed with Dr. Ramirez, urology, who is planning on replacing the stents on April 21. She also reviewed the CT images and noted that the hydronephrosis appears to be improving. (3) YAMILEX (acute kidney injury): PLAN: Unclear what type but concern could be due to dehydration. Patient received 30 cc/kg of IV fluids. Will administer maintenance IV fluids at 150 cc/h for 2 L. Avoid nephrotoxic agents at this time including furosemide. (4) Encephalopathy: PLAN: Suspect metabolic in the septic shock. Avoid potentiating medications. Will hold off on her memantine, risperidone until her sensorium improves. (5) Ileus: PLAN: Noted on CT scan. Will have patient on clear liquid diet for now. If abdominal condition worsens, may need to make her strict NPO. I do not feel that there is any need for an NG tube at this time. PLAN: Plan Chronic conditions Dementia: Hold off on memantine and risperidone for now. Hypothyroidism: Continue with levothyroxine Diabetes mellitus type 2, [id number]: Hold off on glipizide. Sliding scale insulin. Constipation: Peers to be improved on her CAT scan imaging. Will hold off on her bowel regimen for now. VTE prophylaxis with subcu heparin CODE STATUS: Per the group home records. Patient is DNR Comfort Care arrest. Charges/Coding Visit Charges Inpatient E&M: 08304 Init Hosp L3
[2024-04-19 14:09] LABS: Reflex Lactate? Y
[2024-04-19] MEDS: 0.9% Normal Saline (1000mL) 1,000 ML 150 ML IV (15:12)
[2024-04-19 15:13] LABS: Lactic Acid 3.7 mmol/L (0.4-1.9)
[2024-04-19 16:00] LABS: Lactic Acid 6.3 mmol/L (0.4-1.9)
--- NOTE | 2024-04-19 16:06 | CON.PCM_ITS ---
Assessment & Plan Assessment/Plan (1) Catheter-associated urinary tract infection: (2) Encephalopathy: (3) Infection associated with indwelling ureteral stent: PLAN: Plan Continue ICU supportive care Continue intravenous antibiotic administration, await culture results Plan for cystoscopy and bilateral ureteral stent change on No catheter has already been changed HPI Consult Data Date of Consult: 04/19/24 HPI Narrative Reason for Consultation: Bilateral indwelling ureteral stents, admission for urosepsis HPI Narrative: LOYDA GARCIA, is a 78 F who presented to the emergency room today with hypotension and elevated white blood count. She is currently admitted into the ICU and is resting. She was scheduled to have her ureteral stents changed in April, we will plan to do that this week after she has been on antibiotics for a few days. [facility] Medical History (Updated 04/19/24 @ 16:[address] Sanam Ramirez MD) Bilateral hydronephrosis Constipation Bacteremia due to coagulase-negative Staphylococcus CKD (chronic kidney disease), stage III Chronic anemia Hypothyroidism History of TIA (transient ischemic attack) Anxiety and depression Former tobacco use Urinary incontinence Parkinson's disease Wears dentures Diabetes Walker as ambulation aid Back pain History of heart attack CAD (coronary artery disease) HLD (hyperlipidemia) GERD (gastroesophageal reflux disease) Type II diabetes mellitus Benign essential hypertension Home Medications ?Medication ?Instructions ?Recorded ?Last Taken ?Type levothyroxine 50 mcg tablet 50 mcg PO DAILY doc orderd 08/20/19 01/17/23 History metoprolol tartrate 25 mg tablet [address] ordered 08/20/19 01/17/23 History aspirin 81 mg tablet 81 mg PO DAILY daily 05/24/22 01/17/23 History carbidopa 25 mg-levodopa 100 mg 1.[address] ordered 05/24/22 01/17/23 History tablet glipizide 2.5 mg tablet, extended 2.[address] ordered 05/24/22 01/17/23 History release 24 hr memantine 10 mg tablet [address] ordered 05/24/22 01/17/23 History risperidone 0.5 mg tablet 0.[address] ordered 05/24/22 01/17/23 History atorvastatin 10 mg tablet 10 mg PO DAILY 01/22/24 Unknown History acetaminophen 325 mg tablet 650 mg (2 x 325 mg) PO Q6H PRN PRN 01/28/24 Unknown Rx Pain 1-10 Or Fever>100.7 #0 tabs melatonin 3 mg tablet 3 mg PO QHS PRN PRN Insomnia #0 01/28/24 Unknown Rx tabs nystatin 100,000 unit/gram topical 1 applic topical BID #0 grams 01/28/24 Unknown Rx powder (Nyamyc) polyethylene glycol 3350 17 17 g PO DAILY #119 grams 01/28/24 Unknown Rx gram/dose oral powder (Miralax) psyllium husk (aspartame) 3 gram 1 packet PO TID #0 ea 01/28/24 Unknown Rx oral powder packet (Daily Fiber (psyllium-aspartame)) sennosides 8.6 mg-docusate sodium 2 tab PO BID #0 tabs 01/28/24 Unknown Rx 50 mg tablet (Stimulant Laxative Plus) Allergy/AdvReac Type Severity Reaction Status Date / Time No Known Allergies Allergy Verified 12/15/23 15:23 Family History Mother Heart disease Hypertension Father No problems noted. Surgical History History of ureteroscopy History of cystoscopy Hx of CABG Social History household members: spouse housing: house Smoking Status: Former smoker alcohol intake: never substance use type: does not use ROS Review of Systems ROS Unobtainable: due to mental status Physical Exam Const Orientation / Consciousness: lethargic Exam Limitations: altered mental status HEENT normocephalic, head/scalp atraumatic, external ears normal and external nose normal Eyes General Eye: other Other Details: Closed Neck supple General: trachea midline Chest Chest: symmetrical chest wall rise Resp Effort and Inspection: symmetric chest movement; Negative for retractions Cardio Cardio Narrative: She is currently receiving pressure support GI soft to palpation, non-tender and non-distended Narrative: No catheter with clear urine in the tubing at the present time, this is apparently a new No that was just placed in the emergency room. Skin no jaundice, no petechiae and no mottling Lab / Micro Data 04/19/24 10:00 04/19/24 10:00 Labs: Laboratory Results - last 24 hr 04/19/24 10:00: WBC 35.7 H*, RBC 4.12 L, Hgb 10.7 L, Hct 33.6 L, MCV 81.6, MCH 26.0 L, MCHC 31.8 L, RDW Std Deviation 51.3 H, RDW Coeff of [place] 17.8 H, Plt Count 347, MPV 10.8, Immature Gran % (Auto) 1.700 H, Neut % (Auto) 92.9 H, Lymph % (Auto) 2.0 L, [place] % (Auto) 3.1, Eos % (Auto) 0.0, Baso % (Auto) 0.3, Absolute Neuts (auto) 33.2 H, Absolute Lymphs (auto) 0.73 L, Nucleated RBC % 0, Differential Comment SCANNED, Diff Path Review August, PT 15.6 H, INR 1.2, APTT 31.9, Sodium 133 L, Potassium 5.3 H, Chloride 102, Carbon Dioxide 21.0, Anion Gap 10, BUN 31 H, Creatinine 2.66 H, Estim Creat Clear Calc 13.37, Est GFR (MDRD) Af Amer 22 L, Est GFR (MDRD) Non-Af 18 L, BUN/Creatinine Ratio 11.7, G lucose 243 H, Lactic Acid 2.0, Calcium 8.8, Total Bilirubin 0.70, AST 14 L, ALT 12 L, Alkaline Phosphatase 89, Troponin I High Sens 12, Total Protein 6.8, A lbumin 1.9 L, Globulin 4.9 H, Albumin/Globulin Ratio 0.4 L 04/19/24 13:28: Urine Color Yellow, Urine Clarity Turbid, Urine pH 6.0, Ur Specific [place] 1.010, Urine Protein 500 H, Urine Glucose (UA) Normal, Urine Ketones Negative, Urine Occult Blood 250 H, Urine Nitrite Positive H, Urine Bilirubin Negative, Urine Urobilinogen Normal, Ur Leukocyte Esterase 500 H, Urine RBC 5-10 SEEN, Urine WBC >100 SEEN, Ur Squamous Epith Cells 0 SEEN, Urine Bacteria 1+, Urine Mucus 0 SEEN 04/19/24 14:25: Lactic Acid 3.7 H* 04/19/24 15:05: Lactic Acid 6.3 H* Imaging Radiology Impression Abdomen/Pelvis CT 04/19/24 10:10 IMPRESSION: 1. Status post bilateral double-J stent catheters new since previous examination. 2. Bilateral hydronephrosis and postoperative previous exam. 3. Pockets of air in the right pelvicalyceal system could be secondary to the presence of stent. Otherwise infectious process cannot be excluded. 4. Nonspecific fluid-filled small bowel loops and ascending colon could be due to ileus. 5. Gallstones. 6. Atelectatic changes in the lower lungs and trace of left pleural effusion. Electronically Signed: Arian Veliz MD at 12:34 EST , Chest X-Ray 04/19/24 10:36 IMPRESSION: Chronic interstitial changes in both lung [place] without a superimposed acute pulmonary process. However, the left costophrenic angle is not included on this study and there is a suggestion of possible left basilar atelectasis and effusion. Electronically Signed: Adilson Harvey MD at 11:19 EST , Chest X-Ray 04/19/24 11:34 IMPRESSION: No acute pulmonary process Satisfactory appearance of a right IJ central venous catheter Electronically Signed: Adilson Harvey MD at 12:28 EST ,
[2024-04-19] MEDS: Insulin Lispro 100 UNIT/ML INSULN.PEN SC ×2 (17:17→22:06)
[2024-04-19 17:43] LABS: Bedside Glucose 238 mg/dL (74-106)
[2024-04-19 19:11] LABS: Reflex Lactate? Y
[2024-04-19 20:44] LABS: Lactic Acid 1.4 mmol/L (0.4-1.9)
[2024-04-19] MEDS: Heparin Injection (Vial) 5,000 UNIT/ML VIAL 5000 UNIT SC (21:53)
[2024-04-19] MEDS: Nystatin Powder 15gm Bottle 1 APPLIC TOPICAL (21:53)
[2024-04-19] MEDS: Piperacil/Tazobactam 3.375 GM in 0.9% Normal Saline (50mL MB+) 50 ML IV (21:54)
[2024-04-19 22:24] LABS: Bedside Glucose 245 mg/dL (74-106)
[2024-04-19] MEDS: Norepinephrine 8 MG in 0.9% Normal Saline (250mL Bag) 242 ML 18.8 MG CONT INF (22:45)
[2024-04-20] VITALS (27 sets, daily range): BP systolic 86–123; BP diastolic 43–68; PULSE 81–98; RESP 18–24; TEMP 36.3–36.7; O2SAT 93–98; BMI 24.2
[2024-04-20] MEDS: 0.9% Normal Saline (1000mL) 1,000 ML 150 ML IV (00:23)
[2024-04-20 03:46] LABS: Absolute Lymphocyte Count 0.44 X10^3/uL (0.83-4.51); Absolute Neutrophil Count 18.1 X10^3/uL (2.0-7.7); Basophil# 0.02 X10^3/uL; Basophil% 0.1 % (0-1); Hematocrit 24.9 % (37-47); Hemoglobin 7.8 g/dL (12.0-15.0); Lymphocyte # 0.44 X10^3/ul (0.83-4.51); Lymphocyte % 2.3 % (19-41); Mean Corp Hgb Conc 31.3 g/dL (32-36); Mean Platelet Vol. 10.2 fl (6.2-12.0); Monocyte# 0.63 X10^3/uL; Monocyte% 3.2 % (0-10); NRBC Flagged by Analyzer 0 % (0-5); Neutrophil # 18.12 X10^3/uL (2.7-7.7); POSITIVE DIFFERENTIAL YES; Platelet Count 249 K/mm3 (150-450); RBC Distribution Width CV 17.8 % (11.6-14.6); RBC Distribution Width SD 53.1 fl (35.1-43.9); White Blood Count 19.5 K/mm3 (4.4-11.0)
[2024-04-20 04:27] LABS: Anion Gap 5 (5-15); BUN 34 mg/dL (7-18); BUN/Creat Ratio 15.6 RATIO (10-20); Calcium,Total 7.2 mg/dL (8.5-10.1); Chloride 117 mmol/L (98-107); Creatinine, Serum 2.18 mg/dL (0.55-1.02); EST Glomerular Filtration Rate 23 mL/min (>60); Est Glom Filt Rate - Afr Amer 28 mL/min (>60); Estimated Creatinine Clearance 17.73 ml/min; Glucose 194 mg/dL (74-106); Potassium 3.7 mmol/L (3.5-5.1); Sodium Level 143 mmol/L (136-145)
--- NOTE | 2024-04-20 06:41 | CON.PCM.CC_ITS ---
Assessment & Plan Assessment/Plan (1) Septic shock: PLAN: Plan RECOMMENDATIONS: 1. Continue empiric antimicrobials, pending infectious workup. 2. Continue Levophed to maintain a mean arterial pressure at or above 65 mmHg. 3. Tentative plans for cystoscopy with bilateral ureteral stent change tomorrow. 4. Continue appropriate DVT prophylaxis. IMPRESSIONS: 1. Septic shock The patient presented to the hospital with sepsis due to complicated UTI with acute sepsis related organ dysfunction as evidenced by altered mental status, acute kidney injury, lactic acidemia and fluid refractory hypotension requiring vasopressor support. The patient received supplemental IV fluids per protocol and was initiated on antimicrobial therapy. The patient was evaluated by urology, with tentative plans to proceed with cystoscopy and ureteral stent change tomorrow. In the interim, the patient will be continued on Levophed to maintain a mean arterial pressure at or above 65 mmHg. 2. Acute on chronic kidney disease Most likely prerenal in etiology in the setting #1. Creatinine appears to be improving with volume expansion. Continue to monitor urine output for now. No current indication for renal replacement therapy. 3. Toxic/metabolic encephalopathy Suspect that this is related to the patient's underlying urinary tract source of infection. Continue to hold sedating medications. 4. History of dementia/hypothyroidism/diabetes mellitus Complicates care, management, recovery and prognosis. TSH was within normal limits. Continue home medications as indicated. CODE STATUS: DNR CCA TIME: 33 minutes of critical care time, independent of procedures, was spent addressing the patient's septic shock, acute on chronic kidney disease, toxic/metabolic encephalopathy, review of all data and collaboration with the care team. HPI Consult Data Date of Consult: 04/20/24 HPI Narrative Reason for Consultation: Septic shock HPI Narrative: The patient is a 78-year-old female, with a history as outlined below, who presented to the emergency department on April 19 with generalized weakness and abnormal laboratory values from [facility]. The patient was last admitted to the hospital in January 2024 with sepsis related to urinary tract infection in the setting of bilateral hydronephrosis which required cystoscopy and bilateral ureteral stent placement. On presentation to the emergency department, the patient was noted to be afebrile but was hypotensive with a presenting blood pressure of 72/49 mmHg. Laboratory evaluation was notable for an elevated white blood cell count of 35,000. Hemoglobin was initially noted to be 10.7 g/dL. Chemistry profile was notable for a potassium of 5.3 and creatinine of 2.6. Lactate was elevated at 6.3. Urine analysis was positive for nitrites, leukocyte esterase and 1+ urine bacteria. CT abdomen/pelvis demonstrated bilateral hydronephrosis. The patient was seen in consultation by urology, who indicated intentions to proceed with cystoscopy and bilateral ureteral stent change on . The patient received supplemental IV fluid hydration and was initiated on antimicrobials. Due to the persistence of fluid refractory hypotension, a central venous catheter was placed and the patient was initiated on Levophed. She was ultimately admitted to the medical intensive care unit for further management. This morning, the patient's hemoglobin has dropped to 7.8 g/dL. Creatinine has improved to 2.18. She remains on Levophed at 5 mcg/min to maintain hemodynamic stability. [facility] Medical History (Updated 04/19/24 @ 16:[address] Sanam Ramirez MD) Bilateral hydronephrosis Constipation Bacteremia due to coagulase-negative Staphylococcus CKD (chronic kidney disease), stage III Chronic anemia Hypothyroidism History of TIA (transient ischemic attack) Anxiety and depression Former tobacco use Urinary incontinence Parkinson's disease Wears dentures Diabetes Walker as ambulation aid Back pain History of heart attack CAD (coronary artery disease) HLD (hyperlipidemia) GERD (gastroesophageal reflux disease) Type II diabetes mellitus Benign essential hypertension Home Medications ?Medication ?Instructions ?Recorded ?Last Taken ?Type levothyroxine 50 mcg tablet 50 mcg PO DAILY doc orderd 08/20/19 01/17/23 History metoprolol tartrate 25 mg tablet [address] ordered 08/20/19 01/17/23 History aspirin 81 mg tablet 81 mg PO DAILY daily 05/24/22 01/17/23 History carbidopa 25 mg-levodopa 100 mg 1.[address] ordered 05/24/22 01/17/23 History tablet glipizide 2.5 mg tablet, extended 2.[address] ordered 05/24/22 01/17/23 History release 24 hr memantine 10 mg tablet [address] ordered 05/24/22 01/17/23 History risperidone 0.5 mg tablet 0.[address] ordered 05/24/22 01/17/23 History atorvastatin 10 mg tablet 10 mg PO DAILY 01/22/24 Unknown History acetaminophen 325 mg tablet 650 mg (2 x 325 mg) PO Q6H PRN PRN 01/28/24 Unknown Rx Pain 1-10 Or Fever>100.7 #0 tabs melatonin 3 mg tablet 3 mg PO QHS PRN PRN Insomnia #0 01/28/24 Unknown Rx tabs nystatin 100,000 unit/gram topical 1 applic topical BID #0 grams 01/28/24 Unknown Rx powder (Nyamyc) polyethylene glycol 3350 17 17 g PO DAILY #119 grams 01/28/24 Unknown Rx gram/dose oral powder (Miralax) psyllium husk (aspartame) 3 gram 1 packet PO TID #0 ea 01/28/24 Unknown Rx oral powder packet (Daily Fiber (psyllium-aspartame)) sennosides 8.6 mg-docusate sodium 2 tab PO BID #0 tabs 01/28/24 Unknown Rx 50 mg tablet (Stimulant Laxative Plus) mirtazapine 30 mg tablet 30 mg PO QHS DEPRESSION 04/19/24 Unknown History Allergy/AdvReac Type Severity Reaction Status Date / Time No Known Allergies Allergy Verified 12/15/23 15:23 Family History Mother Heart disease Hypertension Father No problems noted. Surgical History History of ureteroscopy History of cystoscopy Hx of CABG Social History household members: spouse housing: house Smoking Status: Former smoker alcohol intake: never substance use type: does not use ROS Review of Systems ROS Unobtainable: due to mental status Physical Exam Const no apparent distress Constitutional Narrative: Will arouse transiently to verbal stimulation but then falls quickly back to sleep. General Appearance: lethargic and ill appearing HEENT normocephalic and head/scalp atraumatic Eyes conjunctivae normal and no scleral icterus Neck supple General: trachea midline and CVC in place Chest inspection of chest normal Resp normal respiratory effort Auscultation: diminished lung sounds; Negative for rales, rhonchi or wheezes Cardio regular rate and regular rhythm GI normal to inspection, nondistended, normoactive bowel sounds Extremity no clubbing, cyanosis or edema Skin no rashes or lesions noted Neuro CN's II-XII intact bilaterally and no focal motor deficits Psych Mood & Affect: flat affect Lab / Micro Data 04/20/24 03:36 04/20/24 03:36 Labs: Laboratory Results - last 24 hr 04/19/24 10:00: WBC 35.7 H*, RBC 4.12 L, Hgb 10.7 L, Hct 33.6 L, MCV 81.6, MCH 26.0 L, MCHC 31.8 L, RDW Std Deviation 51.3 H, RDW Coeff of [place] 17.8 H, Plt Count 347, MPV 10.8, Immature Gran % (Auto) 1.700 H, Neut % (Auto) 92.9 H, Lymph % (Auto) 2.0 L, [place] % (Auto) 3.1, Eos % (Auto) 0.0, Baso % (Auto) 0.3, Absolute Neuts (auto) 33.2 H, Absolute Lymphs (auto) 0.73 L, Nucleated RBC % 0, Differential Comment SCANNED, Diff Path Review August, PT 15.6 H, INR 1.2, APTT 31.9, Sodium 133 L, Potassium 5.3 H, Chloride 102, Carbon Dioxide 21.0, Anion Gap 10, BUN 31 H, Creatinine 2.66 H, Estim Creat Clear Calc 13.37, Est GFR (MDRD) Af Amer 22 L, Est GFR (MDRD) Non-Af 18 L, BUN/Creatinine Ratio 11.7, G lucose 243 H, Lactic Acid 2.0, Calcium 8.8, Total Bilirubin 0.70, AST 14 L, ALT 12 L, Alkaline Phosphatase 89, Troponin I High Sens 12, Total Protein 6.8, A lbumin 1.9 L, Globulin 4.9 H, Albumin/Globulin Ratio 0.4 L 04/19/24 13:28: Urine Color Yellow, Urine Clarity Turbid, Urine pH 6.0, Ur Specific [place] 1.010, Urine Protein 500 H, Urine Glucose (UA) Normal, Urine Ketones Negative, Urine Occult Blood 250 H, Urine Nitrite Positive H, Urine Bilirubin Negative, Urine Urobilinogen Normal, Ur Leukocyte Esterase 500 H, Urine RBC 5-10 SEEN, Urine WBC >100 SEEN, Ur Squamous Epith Cells 0 SEEN, Urine Bacteria 1+, Urine Mucus 0 SEEN 04/19/24 14:25: Lactic Acid 3.7 H* 04/19/24 15:05: Lactic Acid 6.3 H* 04/19/24 17:01: POC Glucose 238 H 04/19/24 19:45: Lactic Acid 1.4 04/19/24 22:05: POC Glucose 245 H 04/20/24 03:36: WBC 19.5 H, RBC 3.00 L, Hgb 7.8 L, Hct 24.9 L, MCV 83.0, MCH 26.0 L, MCHC 31.3 L, RDW Std Deviation 53.1 H, RDW Coeff of [place] 17.8 H, Plt Count 249, MPV 10.2, Immature Gran % (Auto) 1.400 H, Neut % (Auto) 93.0 H, Lymph % (Auto) 2.3 L, [place] % (Auto) 3.2, Eos % (Auto) 0.0, Baso % (Auto) 0.1, Absolute Neuts (auto) 18.1 H, Absolute Lymphs (auto) 0.44 L, Nucleated RBC % 0, Sodium 143, Potassium 3.7, Chloride 117 H, Carbon Dioxide 21.0, Anion Gap 5, BUN 34 H, Creatinine 2.18 H, Estim Creat Clear Calc 17.73, Est GFR (MDRD) Af Amer 28 L, E st GFR (MDRD) Non-Af 23 L, BUN/Creatinine Ratio 15.6, Glucose 194 H, Calcium 7.2 L Micro: Microbiology 04/19/24 10:00 Blood Culture (Wb) - Right Hand Blood Culture - Preliminary 04/19/24 10:00 Blood Culture (Wb) - Anticubital Left Blood Culture - Preliminary Imaging Radiology Impression Abdomen/Pelvis CT 04/19/24 10:10 IMPRESSION: 1. Status post bilateral double-J stent catheters new since previous examination. 2. Bilateral hydronephrosis and postoperative previous exam. 3. Pockets of air in the right pelvicalyceal system could be secondary to the presence of stent. Otherwise infectious process cannot be excluded. 4. Nonspecific fluid-filled small bowel loops and ascending colon could be due to ileus. 5. Gallstones. 6. Atelectatic changes in the lower lungs and trace of left pleural effusion. Electronically Signed: Arian Veliz MD at 12:34 EST , Chest X-Ray 04/19/24 10:36 IMPRESSION: Chronic interstitial changes in both lung [place] without a superimposed acute pulmonary process. However, the left costophrenic angle is not included on this study and there is a suggestion of possible left basilar atelectasis and effusion. Electronically Signed: Adilson Harvey MD at 11:19 EST , Chest X-Ray 04/19/24 11:34 IMPRESSION: No acute pulmonary process Satisfactory appearance of a right IJ central venous catheter Electronically Signed: Adilson Harvey MD at 12:28 EST , Sepsis Attestation Sepsis Alert: Yes Sepsis Attestation: Agree w/Sepsis Date exam was performed: 04/20/24 Time exam was performed: 07:19 Possible Source of Sepsis: Genitourinary Sepsis Organ Dysfunction Criteria Present: SBP < 90 mmHg or MAP < 65 mmHg, Creatinine > 2.0 mg/dL and Lactic Acid > 2 mmol/L Fluid Resuscitation Fluid resuscitation indicated?: Yes Fluid Resuscitation ordered: 30 ml/kg fluid bolus ordered Sepsis Note Date exam was performed: 04/20/24 Time exam was performed: 07:20 Sepsis Attestation: Sepsis re-evaluation was performed Response to fluids: Vasopressors started Charges/Coding Procedures Hospitalists Procedures: 10985 Critical Care 1st Hr
[2024-04-20] MEDS: Insulin Lispro 100 UNIT/ML INSULN.PEN SC (07:37)
[2024-04-20 07:55] LABS: Bedside Glucose 153 mg/dL (74-106)
--- NOTE | 2024-04-20 08:48 | PCM.PN.HOSP ---
Reason for Visit Reason for Visit: Diagnoses Sepsis, unspecified organism (04/19/24) Encephalopathy, unspecified (04/19/24) Ileus, unspecified (04/19/24) Acute kidney failure, unspecified (04/19/24) Urinary tract infection, site not specified (04/19/24) Severe sepsis with septic shock (04/19/24) Infection and inflammatory reaction due to indwelling urethral catheter, initial encounter (04/19/24) Infection and inflammatory reaction due to indwelling ureteral stent, initial encounter (04/19/24) Subjective Subjective Patient is a 78-year-old lady resident at [facility] was sent to the ED by the PCP on account of leukocytosis hypotension with history of previous UTI. An assessment of septic shock made admitted to the intensive care unit treatment initiated per protocol Objective Data Objective Data Vital Signs: Vital Signs Temp Pulse Resp BP Pulse Ox O2 Del Method O2 Flow Rate 98.0 F 91 18 118/48 L 93 Room Air 1 04/20/24 08:00 04/20/24 08:00 04/20/24 08:00 04/20/24 08:00 04/20/24 08:00 04/20/24 08:00 04/20/24 05:00 Oxygen Flow Rate (L/min) 1 Oxygen Delivery Method Room Air Weight: 58.2 kg Body Mass Index (BMI) 24.2 Intake & Output: Intake and Output for Last 24 Hours 04/18/24 04/19/24 04/20/24 23:59 23:59 23:59 Intake Total 4867.22 / 4886.02 1146.35 / 1146.35 Output Total 150 / 350 450 / 450 Balance 4717.22 / 4536.02 696.35 / 696.35 Lab / Micro Data 04/20/24 03:36 04/20/24 03:36 Labs: Laboratory Results - last 24 hr 04/19/24 10:00: WBC 35.7 H*, RBC 4.12 L, Hgb 10.7 L, Hct 33.6 L, MCV 81.6, MCH 26.0 L, MCHC 31.8 L, RDW Std Deviation 51.3 H, RDW Coeff of Fest[place] 17.8 H, Plt Count 347, MPV 10.8, Immature Gran % (Auto) 1.700 H, Neut % (Auto) 92.9 H, Lymph % (Auto) 2.0 L, [place] % (Auto) 3.1, Eos % (Auto) 0.0, Baso % (Auto) 0.3, Absolute Neuts (auto) 33.2 H, Absolute Lymphs (auto) 0.73 L, Nucleated RBC % 0, Differential Comment SCANNED, Diff Path Review August, PT 15.6 H, INR 1.2, APTT 31.9, Sodium 133 L, Potassium 5.3 H, Chloride 102, Carbon Dioxide 21.0, Anion Gap 10, BUN 31 H, Creatinine 2.66 H, Estim Creat Clear Calc 13.37, Est GFR (MDRD) Af Amer 22 L, Est GFR (MDRD) Non-Af 18 L, BUN/Creatinine Ratio 11.7, Glucose 243 H, Lactic Acid 2.0, Calcium 8.8, Total Bilirubin 0.70, AST 14 L, ALT 12 L, Alkaline Phosphatase 89, Troponin I High Sens 12, Total Protein 6.8, Albumin 1.9 L, Globulin 4.9 H, Albumin/Globulin Ratio 0.4 L 04/19/24 13:28: Urine Color Yellow, Urine Clarity Turbid, Urine pH 6.0, Ur Specific [place] 1.010, Urine Protein 500 H, Urine Glucose (UA) Normal, Urine Ketones Negative, Urine Occult Blood 250 H, Urine Nitrite Positive H, Urine Bilirubin Negative, Urine Urobilinogen Normal, Ur Leukocyte Esterase 500 H, Urine RBC 5-10 SEEN, Urine WBC >100 SEEN, Ur Squamous Epith Cells 0 SEEN, Urine Bacteria 1+, Urine Mucus 0 SEEN 04/19/24 14:25: Lactic Acid 3.7 H* 04/19/24 15:05: Lactic Acid 6.3 H* 04/19/24 17:01: POC Glucose 238 H 04/19/24 19:45: Lactic Acid 1.4 04/19/24 22:05: POC Glucose 245 H 04/20/24 03:36: WBC 19.5 H, RBC 3.00 L, Hgb 7.8 L, Hct 24.9 L, MCV 83.0, MCH 26.0 L, MCHC 31.3 L, RDW Std Deviation 53.1 H, RDW Coeff of Fest[place] 17.8 H, Plt Count 249, MPV 10.2, Immature Gran % (Auto) 1.400 H, Neut % (Auto) 93.0 H, Lymph % (Auto) 2.3 L, [place] % (Auto) 3.2, Eos % (Auto) 0.0, Baso % (Auto) 0.1, Absolute Neuts (auto) 18.1 H, Absolute Lymphs (auto) 0.44 L, Nucleated RBC % 0, Sodium 143, Potassium 3.7, Chloride 117 H, Carbon Dioxide 21.0, Anion Gap 5, BUN 34 H, Creatinine 2.18 H, Estim Creat Clear Calc 17.73, Est GFR (MDRD) Af Amer 28 L, Est GFR (MDRD) Non-Af 23 L, BUN/Creatinine Ratio 15.6, Glucose 194 H, Calcium 7.2 L 04/20/24 06:53: Blood Type A POSITIVE, Antibody Screen NEGATIVE 04/20/24 07:36: POC Glucose 153 H Micro: Microbiology 04/19/24 13:28 Urine, Catheterized Urine Culture - Preliminary Gram negative sanjuana 04/19/24 10:00 Blood Culture (Wb) - Right Hand Blood Culture - Preliminary 04/19/24 10:00 Blood Culture (Wb) - Anticubital Left Blood Culture - Preliminary Radiography Diagnostic Testing: Radiology Impression Abdomen/Pelvis CT 04/19/24 10:10 IMPRESSION: 1. Status post bilateral double-J stent catheters new since previous examination. 2. Bilateral hydronephrosis and postoperative previous exam. 3. Pockets of air in the right pelvicalyceal system could be secondary to the presence of stent. Otherwise infectious process cannot be excluded. 4. Nonspecific fluid-filled small bowel loops and ascending colon could be due to ileus. 5. Gallstones. 6. Atelectatic changes in the lower lungs and trace of left pleural effusion. Electronically Signed: Arian Veliz MD at 12:34 EST , Chest X-Ray 04/19/24 10:36 IMPRESSION: Chronic interstitial changes in both lung [place] without a superimposed acute pulmonary process. However, the left costophrenic angle is not included on this study and there is a suggestion of possible left basilar atelectasis and effusion. Electronically Signed: Adilson Harvey MD at 11:19 EST , Chest X-Ray 04/19/24 11:34 IMPRESSION: No acute pulmonary process Satisfactory appearance of a right IJ central venous catheter Electronically Signed: Adilson Harvey MD at 12:28 EST , Physical Exam Narrative GENERAL: Patient sleeping but easily arousable in no apparent distress HEENT: Atraumatic; normocephalic EYES; Anicteric, Normal Conjunctiva NECK; supple, normal thyroid, RESPIRATORY: Diminished to auscultation CARDIOVASCULAR: Regular S1 S2, GI: soft, normoactive bowel sounds, : No Renal angle tenderness; EXTREMITIES: No edema, no clubbing, MUSCULOSKELETAL: no muscle wasting NEURO: no lateralizing signs. SKIN: No Rash PSYCH; Flat affect Assessment & Plan Assessment/Plan (1) Infection associated with indwelling ureteral stent: (2) CKD (chronic kidney disease), stage III: (3) Catheter-associated urinary tract infection: PLAN: Plan Patient is a 78-year-old lady resident at [facility] was sent to the ED by the PCP on account of leukocytosis hypotension with history of previous UTI. An assessment of septic shock made admitted to the intensive care unit treatment initiated per protocol 1. Septic shock ? Secondary to catheter associated urinary tract infection. Imaging studies obtained on admission bilateral hydroureteronephrosis with presence of right ureteral stent. Antibiotics were initiated per protocol patient resuscitated with IV fluids and patient started on pressors admitted to the intensive care unit. Cultures obtained on admission. So far positive for gram-negative rods with colony count of 50K-80K. Final identification and sensitivities pending 2. Acute metabolic encephalopathy ? Secondary to above we will expect improvement with treatment of underlying clinical condition 3. Bilateral hydronephrosis ? With previous bilateral indwelling ureteral stent placement. ? Consult was placed to urologDr. Ramirez plan is for patient to undergo urological intervention with changing of his stents. 4. Chronic kidney disease stage IV There appears to be gradual worsening of patient kidney function since the middle of last year. Patient current baseline creatinine is around 2. 5. Anemia ? Secondary to chronic disorder monitoring H&H and transfuse if patient becomes symptomatic or hemoglobin falls below 7 6. Diabetes mellitus type 2 ? Patient is on glipizide held placed on Accu-Cheks before meals and at bedtime with sliding scale coverage as well as long-acting insulin 7. Parkinson's disease ? Patient is on carbidopa levodopa did contain 8. Hypothyroidism ? Patient is on levothyroxine home dose continued 9. Coronary artery disease ? With previous CABG patient is on antiplatelet therapy with aspirin as well as statin therapy and beta-blockers 10. Essential hypertension ? Patient antihypertensives currently being held given her presentation 11. Dyslipidemia ?Patient is on statin therapy, continued at home dose 12. Mild cognitive impairment ? Patient is on Namenda plan is to continue 13. Depression/anxiety Patient is on risperidone 14. DVT prophylaxis -Continue subcu heparin Abdomen/Pelvis CT 04/19/24 10:10 IMPRESSION: 1. Status post bilateral double-J stent catheters new since previous examination. 2. Bilateral hydronephrosis and postoperative previous exam. 3. Pockets of air in the right pelvicalyceal system could be secondary to the presence of stent. Otherwise infectious process cannot be excluded. 4. Nonspecific fluid-filled small bowel loops and ascending colon could be due to ileus. 5. Gallstones. 6. Atelectatic changes in the lower lungs and trace of left pleural effusion. Time spent in the patient's overall evaluation,decision-making process, review of diagnostic data, adjustment of management, discussion with other providers, nursing nursing and ancillary staff involved in patient's care documentation, 52 minutes Charges/Coding Visit Charges Inpatient E&M: 98401 [facility] L3
[2024-04-20] MEDS: Piperacil/Tazobactam 3.375 GM in 0.9% Normal Saline (50mL MB+) 50 ML IV (09:08)
[2024-04-20] MEDS: Heparin Injection (Vial) 5,000 UNIT/ML VIAL 5000 UNIT SC (10:02)
[2024-04-20] MEDS: Nystatin Powder 15gm Bottle 1 APPLIC TOPICAL ×2 (10:02→21:00)
[2024-04-20 11:30] LABS: Bedside Glucose 158 mg/dL (74-106)
--- NOTE | 2024-04-20 12:38 | PCM.PN.GU ---
Subjective Subjective Called to speak to family regarding patient's status and possibility of moving her into a comfort care/hospice situation. We discussed the planned procedure, the risks that she has for frequent recurring urinary tract infections including urosepsis. We discussed expectations that these situations will likely continue regardless of the treatment that we offer her on discharge. , sister and family are present at bedside and their questions were answered to the best of my ability. She has improved significantly overnight and with this improvement the risk of stent change is likely to be minimal. In my opinion it will do more to postpone her next episode of infection as opposed to significantly improving her present clinical situation. The family will continue to discuss today. Once they decide, we can either continue with the procedure tomorrow as scheduled or cancel. Objective Data Objective Data Vital Signs: Vital Signs Temp Pulse Resp BP Pulse Ox O2 Del Method O2 Flow Rate 97.9 F 86 21 H 111/54 L 97 Room Air 1 04/20/24 12:00 04/20/24 12:00 04/20/24 12:00 04/20/24 12:00 04/20/24 12:00 04/20/24 12:00 04/20/24 05:00 Oxygen Flow Rate (L/min) 1 Oxygen Delivery Method Room Air Weight: 58.2 kg Body Mass Index (BMI) 24.2 Intake & Output: Intake and Output for Last 24 Hours 04/18/24 04/19/24 04/20/24 23:59 23:59 23:59 Intake Total 4867.22 / 4886.02 1179.25 / 1179.25 Output Total 150 / 350 800 / 800 Balance 4717.22 / 4536.02 379.25 / 379.25 Lab / Micro Data 04/20/24 03:36 04/20/24 03:36 Labs: Laboratory Results - last 24 hr 04/19/24 10:00: Sodium 133 L, Potassium 5.3 H, Chloride 102, Carbon Dioxide 21.0, Anion Gap 10, BUN 31 H, Creatinine 2.66 H, Estim Creat Clear Calc 13.37, Est GFR (MDRD) Af Amer 22 L, Est GFR (MDRD) Non-Af 18 L, BUN/Creatinine Ratio 11.7, Glucose 243 H, Calcium 8.8, Total Bilirubin 0.70, AST 14 L, ALT 12 L, Alkaline Phosphatase 89, Troponin I High Sens 12, Total Protein 6.8, Albumin 1.9 L, Globulin 4.9 H, Albumin/Globulin Ratio 0.4 L 04/19/24 13:28: Urine Color Yellow, Urine Clarity Turbid, Urine pH 6.0, Ur Specific [place] 1.010, Urine Protein 500 H, Urine Glucose (UA) Normal, Urine Ketones Negative, Urine Occult Blood 250 H, Urine Nitrite Positive H, Urine Bilirubin Negative, Urine Urobilinogen Normal, Ur Leukocyte Esterase 500 H, Urine RBC 5-10 SEEN, Urine WBC >100 SEEN, Ur Squamous Epith Cells 0 SEEN, Urine Bacteria 1+, Urine Mucus 0 SEEN 04/19/24 14:25: Lactic Acid 3.7 H* 04/19/24 15:05: Lactic Acid 6.3 H* 04/19/24 17:01: POC Glucose 238 H 04/19/24 19:45: Lactic Acid 1.4 04/19/24 22:05: POC Glucose 245 H 04/20/24 03:36: WBC 19.5 H, RBC 3.00 L, Hgb 7.8 L, Hct 24.9 L, MCV 83.0, MCH 26.0 L, MCHC 31.3 L, RDW Std Deviation 53.1 H, RDW Coeff of [place] 17.8 H, Plt Count 249, MPV 10.2, Immature Gran % (Auto) 1.400 H, Neut % (Auto) 93.0 H, Lymph % (Auto) 2.3 L, [place] % (Auto) 3.2, Eos % (Auto) 0.0, Baso % (Auto) 0.1, Absolute Neuts (auto) 18.1 H, Absolute Lymphs (auto) 0.44 L, Nucleated RBC % 0, Sodium 143, Potassium 3.7, Chloride 117 H, Carbon Dioxide 21.0, Anion Gap 5, BUN 34 H, Creatinine 2.18 H, Estim Creat Clear Calc 17.73, Est GFR (MDRD) Af Amer 28 L, Est GFR (MDRD) Non-Af 23 L, BUN/Creatinine Ratio 15.6, Glucose 194 H, Calcium 7.2 L 04/20/24 06:53: Blood Type A POSITIVE, Antibody Screen NEGATIVE 04/20/24 07:36: POC Glucose 153 H 04/20/24 11:13: POC Glucose 158 H Micro: Microbiology 04/19/24 10:00 Blood Culture (Wb) - Right Hand Blood Culture - Preliminary Gram negative sanjuana 04/19/24 10:00 Blood Culture (Wb) - Anticubital Left Blood Culture - Preliminary 04/19/24 13:28 Urine, Catheterized Urine Culture - Preliminary Gram negative sanjuana
[2024-04-20 16:28] LABS: Bedside Glucose 149 mg/dL (74-106)
[2024-04-20 23:34] LABS: Bedside Glucose 111 mg/dL (74-106)
[2024-04-21 02:54] VITALS: BP 116/60; PULSE 70; RESP 18; TEMP 36.8; O2SAT 98
[2024-04-21 05:31] VITALS: BMI 23.1
[2024-04-21 06:33] LABS: Absolute Lymphocyte Count 0.37 X10^3/uL (0.83-4.51); Absolute Neutrophil Count 8.6 X10^3/uL (2.0-7.7); Basophil# 0.02 X10^3/uL; Basophil% 0.2 % (0-1); Eosinophil# 0.03 X10^3/uL; Eosinophils% 0.3 % (0-5); Hematocrit 24.8 % (37-47); Hemoglobin 7.5 g/dL (12.0-15.0); Lymphocyte # 0.37 X10^3/ul (0.83-4.51); Mean Corp Hgb Conc 30.2 g/dL (32-36); Mean Corpuscular Hgb 25.1 pg (27.0-32.0); Mean Corpuscular Volume 82.9 fL (81-99); Mean Platelet Vol. 10.5 fl (6.2-12.0); Monocyte% 3.2 % (0-10); NRBC Flagged by Analyzer 0 % (0-5); Neutrophil # 8.56 X10^3/uL (2.7-7.7); Neutrophil % 91.6 % (47-70); POSITIVE DIFFERENTIAL YES; Platelet Count 185 K/mm3 (150-450); RBC Distribution Width CV 17.8 % (11.6-14.6); RBC Distribution Width SD 53.6 fl (35.1-43.9); Red Blood Count 2.99 M/mm3 (4.2-5.4); White Blood Count 9.4 K/mm3 (4.4-11.0)
[2024-04-21 06:51] LABS: Anion Gap 7 (5-15); BUN 33 mg/dL (7-18); BUN/Creat Ratio 15.3 RATIO (10-20); Calcium,Total 7.8 mg/dL (8.5-10.1); Chloride 123 mmol/L (98-107); Creatinine, Serum 2.15 mg/dL (0.55-1.02); EST Glomerular Filtration Rate 24 mL/min (>60); Est Glom Filt Rate - Afr Amer 29 mL/min (>60); Estimated Creatinine Clearance 16.54 ml/min; Glucose 101 mg/dL (74-106); Magnesium 1.7 mg/dL (1.6-2.6); Phosphorus 3.3 mg/dL (2.5-4.9); Potassium 3.1 mmol/L (3.5-5.1); Sodium Level 147 mmol/L (136-145)
[2024-04-21 07:15] LABS: Bedside Glucose 93 mg/dL (74-106)
--- NOTE | 2024-04-21 08:15 | PN.HOSP_ITS ---
Reason for Visit Reason for Visit: Diagnoses Sepsis, unspecified organism (04/19/24) Encephalopathy, unspecified (04/19/24) Ileus, unspecified (04/19/24) Acute kidney failure, unspecified (04/19/24) Chronic kidney disease, stage 3 unspecified (04/19/24) Urinary tract infection, site not specified (04/19/24) Severe sepsis with septic shock (04/19/24) Infection and inflammatory reaction due to indwelling urethral catheter, initial encounter (04/19/24) Infection and inflammatory reaction due to indwelling ureteral stent, initial encounter (04/19/24) Subjective Subjective Patient CODE STATUS was changed by primary from DNR CCA to DNR CCA and subsequently requested for hospice consultation. Blood cultures so far positive for ESBL E. coli. Objective Data Objective Data Vital Signs: Vital Signs Temp Pulse Resp BP Pulse Ox O2 Del Method O2 Flow Rate 98.2 F 70 18 116/60 98 Room Air 1 04/21/24 02:54 04/21/24 02:54 04/21/24 02:54 04/21/24 02:54 04/21/24 02:54 04/21/24 02:55 04/20/24 05:00 Oxygen Flow Rate (L/min) 1 Oxygen Delivery Method Room Air Weight: 55.6 kg Body Mass Index (BMI) 23.1 Intake & Output: Intake and Output for Last 24 Hours 04/19/24 04/20/24 04/21/24 23:59 23:59 23:59 Intake Total 4867.22 / 4886.02 1250.09 / 1250.09 Output Total 150 / 350 1150 / 1150 450 / 450 Balance 4717.22 / 4536.02 100.09 / 100.09 -450 / -450 Lab / Micro Data 04/21/24 05:12 04/21/24 05:12 Labs: Laboratory Results - last 24 hr 04/19/24 10:00: Sodium 133 L, Potassium 5.3 H, Chloride 102, Carbon Dioxide 21.0, Anion Gap 10, BUN 31 H, Creatinine 2.66 H, Estim Creat Clear Calc 13.37, E st GFR (MDRD) Af Amer 22 L, Est GFR (MDRD) Non-Af 18 L, BUN/Creatinine Ratio 11.7, Glucose 243 H, Calcium 8.8, Total Bilirubin 0.70, AST 14 L, ALT 12 L, Alkaline Phosphatase 89, Troponin I High Sens 12, Total Protein 6.8, Albumin 1.9 L, Globulin 4.9 H, Albumin/Globulin Ratio 0.4 L 04/20/24 06:53: Blood Type A POSITIVE, Antibody Screen NEGATIVE 04/20/24 11:13: POC Glucose 158 H 04/20/24 16:10: POC Glucose 149 H 04/20/24 20:59: POC Glucose 111 H 04/21/24 05:12: WBC 9.4, RBC 2.99 L, Hgb 7.5 L, Hct 24.8 L, MCV 82.9, MCH 25.1 L , MCHC 30.2 L, RDW Std Deviation 53.6 H, RDW Coeff of Festus 17.8 H, Plt Count 185, MPV 10.5, Immature Gran % (Auto) 0.700, Neut % (Auto) 91.6 H, Lymph % (Auto) 4.0 L, Johnston % (Auto) 3.2, Eos % (Auto) 0.3, Baso % (Auto) 0.2, Absolute Neuts (auto) 8.6 H, Absolute Lymphs (auto) 0.37 L, Nucleated RBC % 0, Sodium 147 H, Potassium 3.1 L, Chloride 123 H, Carbon Dioxide 17.0 L, Anion Gap 7, BUN 33 H, Creatinine 2.15 H, Estim Creat Clear Calc 16.54, Est GFR (MDRD) Af Amer 29 L, Est GFR (MDRD) Non-Af 24 L, BUN/Creatinine Ratio 15.3, Glucose 101, Calcium 7.8 L, Phosphorus 3.3, Magnesium 1.7 04/21/24 06:10: POC Glucose 93 Micro: Microbiology 04/19/24 10:00 Blood Culture (Wb) - Anticubital Left Blood Culture - Final Gram negative sanjuana 04/19/24 13:28 Urine, Catheterized Urine Culture - Preliminary ESBL Escherichia coli 04/19/24 10:00 Blood Culture (Wb) - Right Hand Blood Culture - Preliminary ESBL Escherichia coli Physical Exam Narrative GENERAL: in no apparent distress HEENT: Atraumatic; normocephalic EYES; Anicteric, Normal Conjunctiva NECK; supple, normal thyroid, RESPIRATORY: Diminished to auscultation CARDIOVASCULAR: Regular S1 S2, GI: soft, normoactive bowel sounds, : No Renal angle tenderness; EXTREMITIES: No edema, no clubbing, MUSCULOSKELETAL: no muscle wasting NEURO: no lateralizing signs. SKIN: No Rash PSYCH; Flat affect Assessment & Plan Assessment/Plan (1) Infection associated with indwelling ureteral stent: (2) CKD (chronic kidney disease), stage III: (3) Catheter-associated urinary tract infection: PLAN: Plan Patient is a 78-year-old lady resident at [facility] was sent to the ED by the PCP on account of leukocytosis hypotension with history of previous UTI. An assessment of septic shock made admitted to the intensive care unit treatment initiated per protocol 1. Septic shock ? Secondary to catheter associated urinary tract infection and ESBL E. coli. Imaging studies obtained on admission bilateral hydroureteronephrosis with presence of right ureteral stent. Antibiotics were initiated per protocol patient resuscitated with IV fluids and patient started on pressors admitted to the intensive care unit. Cultures obtained on admission. So far positive for gram-negative rods with colony count of 50K-80K. Final identification and sensitivities pending ? 04/21/2024 patient final cultures came back positive for ESBL E. coli patient remains on appropriate antibiotic therapy 2. Acute metabolic encephalopathy ? Secondary to above we will expect improvement with treatment of underlying clinical condition 3. Bilateral hydronephrosis ? With previous bilateral indwelling ureteral stent placement. ? Consult was placed to urologDr. Ramirez plan is for patient to undergo urological intervention with changing of his stents. ? 04/21/2024; patient's family ambulating with proceeding with any surgical intervention given the fact that her CODE STATUS has been changed to DNR CC with hospice consulted 4. Chronic kidney disease stage IV There appears to be gradual worsening of patient kidney function since the middle of last year. Patient current baseline creatinine is around 2. 5. Anemia ? Secondary to chronic disorder monitoring H&H and transfuse if patient becomes symptomatic or hemoglobin falls below 7 6. Diabetes mellitus type 2 ? Patient is on glipizide held placed on Accu-Cheks before meals and at bedtime with sliding scale coverage as well as long-acting insulin 7. Parkinson's disease ? Patient is on carbidopa levodopa did contain 8. Hypothyroidism ? Patient is on levothyroxine home dose continued 9. Coronary artery disease ? With previous CABG patient is on antiplatelet therapy with aspirin as well as statin therapy and beta-blockers 10. Essential hypertension ? Patient antihypertensives currently being held given her presentation 11. Dyslipidemia ?Patient is on statin therapy, continued at home dose 12. Mild cognitive impairment ? Patient is on Namenda plan is to continue 13. Depression/anxiety Patient is on risperidone 14. DVT prophylaxis -Continue subcu heparin Abdomen/Pelvis CT 04/19/24 10:10 IMPRESSION: 1. Status post bilateral double-J stent catheters new since previous examination. 2. Bilateral hydronephrosis and postoperative previous exam. 3. Pockets of air in the right pelvicalyceal system could be secondary to the presence of stent. Otherwise infectious process cannot be excluded. 4. Nonspecific fluid-filled small bowel loops and ascending colon could be due to ileus. 5. Gallstones. 6. Atelectatic changes in the lower lungs and trace of left pleural effusion. Time spent in the patient's overall evaluation,decision-making process, review of diagnostic data, adjustment of management, discussion with other providers, nursing nursing and ancillary staff involved in patient's care documentation, 36 minutes Charges/Coding Visit Charges Inpatient E&M: 14032 Subs Hosp L2
[2024-04-21 09:44] VITALS: BP 99/56; PULSE 79; RESP 16; TEMP 36.5; O2SAT 98
--- NOTE | 2024-04-21 09:58 | CASEMGMT ---
Addendum entered by Deya Cardoso 04/21/24 11:13: Social Work- Hospice returned SW call. Hospice reports assessment is scheduled for 5:30-6PM today with family at the hospital. Bedside nurse updated. SW rmeins available to follow. Plan: Hospice; IPU if accepted ALEXUS Paredes Original Note: Social Work- Physician reports that pt has hospice referral; uncertain of assessment time. SW called hospice to confirm time; hospice to call SW back with a time. ALEXUS Paredes
[2024-04-21] MEDS: Nystatin Powder 15gm Bottle 1 APPLIC TOPICAL ×2 (11:09→20:42)
--- NOTE | 2024-04-21 11:14 | CASEMGMT ---
Discharge Planning VM left for ANNMARIE Puckett @ [facility] that pt has hospice eval today. Shirley Perry DC Planning Asst.
[2024-04-21 11:30] VITALS: O2SAT 92
[2024-04-21 12:11] VITALS: BP 96/56; PULSE 69; RESP 16; TEMP 37.2; O2SAT 97
--- NOTE | 2024-04-21 14:30 | CHAPLAIN ---
Type of Pastoral Visit _x__ Initial Visit ___ Follow-up Visit ___ On-call Visit ___ General Patient Visit ___ Spiritual Assessment ___ Family Conference ___ Bereavement ___ Rapid Response ___ Code Blue ___ Other (describe below) Pastoral Care Referral From ___ Patient ___ Family ___ Nurse ___ Physician ___ Barrel And Receiver Aligner ___ Jet Man _x__ Other (describe below) Sacrament/Intervention ___ Active listening ___ Anointing ___ Christian ___ Bereavement ___ Communion ___ Debora exploration ___ ___ Life review ___ Prayer ___ Reconciliation ___ Sacrament of Sick ___ Supportive presence ___ Wedding ___ Other (describe below) Pastoral Comments patient was sleeping and did not respond to her name; left a calling card
[2024-04-21 15:34] VITALS: BP 104/57; PULSE 71; RESP 16; TEMP 36.7; O2SAT 95
--- NOTE | 2024-04-21 16:37 | PCM.DC.SUM ---
Providers Date of Admission: 04/19/24 Date of Discharge: 04/21/24 Primary Care Physician: Dr. Toi Ocampo MD Consultations 04/19/24 14:51 Consult: Animal Doctor / Pulmonary Medicine Routine Consulting Provider: Intensivists/Pulmonary Med Reason for Consult: septic shock EMERGENT Consult: No Notified: Yes Date Notified: 04/19/24 Time Notified: 16:00 Method of Notification: Verbal Consult: Urology Routine Consulting Provider: Sanam Ramirez Reason for Consult: UTI EMERGENT Consult: No Notified: Yes Date Notified: 04/19/24 Time Notified: 14:15 Method of Notification: Verbal 04/20/24 14:09 Consult: Hospice / Palliative Care Routine Consulting Provider: [facility] Reason for Consult: Septic shock EMERGENT Consult: No Notified: Yes Date Notified: 04/20/24 Time Notified: 14:10 Method of Notification: Answering Service Reason For Visit: UROSEPSIS Diagnosis Discharge Diagnosis (1) Infection associated with indwelling ureteral stent: Status: Acute Code(s): T83.592A - Infection and inflammatory reaction due to indwelling ureteral stent, initial encounter (2) CKD (chronic kidney disease), stage III: Status: Chronic Code(s): N18.30 - Chronic kidney disease, stage 3 unspecified (3) Catheter-associated urinary tract infection: Status: Acute Code(s): T83.511A - Infection and inflammatory reaction due to indwelling urethral catheter, initial encounter; N39.0 - Urinary tract infection, site not specified Plan Patient is a 78-year-old lady resident at [facility] was sent to the ED by the PCP on account of leukocytosis hypotension with history of previous UTI. An assessment of septic shock made admitted to the intensive care unit treatment initiated per protocol 1. Septic shock ? Secondary to catheter associated urinary tract infection and ESBL E. coli. Imaging studies obtained on admission bilateral hydroureteronephrosis with presence of right ureteral stent. Antibiotics were initiated per protocol patient resuscitated with IV fluids and patient started on pressors admitted to the intensive care unit. Cultures obtained on admission. So far positive for gram-negative rods with colony count of 50K-80K. Final identification and sensitivities pending ? 04/21/2024 patient final cultures came back positive for ESBL E. coli patient remains on appropriate antibiotic therapy 2. Acute metabolic encephalopathy ? Secondary to above we will expect improvement with treatment of underlying clinical condition 3. Bilateral hydronephrosis ? With previous bilateral indwelling ureteral stent placement. ? Consult was placed to urologDr. Ramirez plan is for patient to undergo urological intervention with changing of his stents. ? 04/21/2024; patient's family ambulating with proceeding with any surgical intervention given the fact that her CODE STATUS has been changed to DNR CC with hospice consulted 4. Chronic kidney disease stage IV There appears to be gradual worsening of patient kidney function since the middle of last year. Patient current baseline creatinine is around 2. 5. Anemia ? Secondary to chronic disorder monitoring H&H and transfuse if patient becomes symptomatic or hemoglobin falls below 7 6. Diabetes mellitus type 2 ? Patient is on glipizide held placed on Accu-Cheks before meals and at bedtime with sliding scale coverage as well as long-acting insulin 7. Parkinson's disease ? Patient is on carbidopa levodopa did contain 8. Hypothyroidism ? Patient is on levothyroxine home dose continued 9. Coronary artery disease ? With previous CABG patient is on antiplatelet therapy with aspirin as well as statin therapy and beta-blockers 10. Essential hypertension ? Patient antihypertensives currently being held given her presentation 11. Dyslipidemia ?Patient is on statin therapy, continued at home dose 12. Mild cognitive impairment ? Patient is on Namenda plan is to continue 13. Depression/anxiety Patient is on risperidone 14. DVT prophylaxis -Continue subcu heparin Abdomen/Pelvis CT 04/19/24 10:10 IMPRESSION: 1. Status post bilateral double-J stent catheters new since previous examination. 2. Bilateral hydronephrosis and postoperative previous exam. 3. Pockets of air in the right pelvicalyceal system could be secondary to the presence of stent. Otherwise infectious process cannot be excluded. 4. Nonspecific fluid-filled small bowel loops and ascending colon could be due to ileus. 5. Gallstones. 6. Atelectatic changes in the lower lungs and trace of left pleural effusion. Time spent in the patient's overall evaluation,decision-making process, review of diagnostic data, adjustment of management, discussion with other providers, nursing nursing and ancillary staff involved in patient's care documentation, 36 minutes Medications at Discharge Home Medications levothyroxine 50 mcg tablet 50 mcg PO DAILY doc orderd 08/20/19 metoprolol tartrate 25 mg tablet [address] ordered 08/20/19 aspirin 81 mg tablet 81 mg PO DAILY daily 05/24/22 carbidopa 25 mg-levodopa 100 mg tablet 1.[address] ordered 05/24/22 glipizide 2.5 mg tablet, extended release 24 hr 2.[address] ordered 05/24/22 memantine 10 mg tablet [address] ordered 05/24/22 risperidone 0.5 mg tablet 0.[address] ordered 05/24/22 atorvastatin 10 mg tablet 10 mg PO DAILY 01/22/24 acetaminophen 325 mg tablet 650 mg (2 x 325 mg) PO Q6H PRN PRN Pain 1-10 Or Fever>100.7 #0 tabs 01/28/24 melatonin 3 mg tablet 3 mg PO QHS PRN PRN Insomnia #0 tabs 01/28/24 nystatin 100,000 unit/gram topical powder (Nyamyc) 1 applic topical BID #0 grams 01/28/24 polyethylene glycol 3350 17 gram/dose oral powder (Miralax) 17 g PO DAILY #119 grams 01/28/24 psyllium husk (aspartame) 3 gram oral powder packet (Daily Fiber (psyllium-aspartame)) 1 packet PO TID #0 ea 01/28/24 sennosides 8.6 mg-docusate sodium 50 mg tablet (Stimulant Laxative Plus) 2 tab PO BID #0 tabs 01/28/24 mirtazapine 30 mg tablet 30 mg PO QHS DEPRESSION 04/19/24 Physical Exam Narrative GENERAL: in no apparent distress HEENT: Atraumatic; normocephalic EYES; Anicteric, Normal Conjunctiva NECK; supple, normal thyroid, RESPIRATORY: Diminished to auscultation CARDIOVASCULAR: Regular S1 S2, GI: soft, normoactive bowel sounds, : No Renal angle tenderness; EXTREMITIES: No edema, no clubbing, MUSCULOSKELETAL: no muscle wasting NEURO: no lateralizing signs. SKIN: No Rash PSYCH; Flat affect Weight / BMI Weight Weight: 55.5 kg Body Mass Index (BMI) 23.1 ABG / Lab / Microbiology Data 04/21/24 05:12 04/21/24 05:12 Laboratory: Laboratory Results - last 24 hr 04/20/24 20:59: POC Glucose 111 H 04/21/24 05:12: WBC 9.4, RBC 2.99 L, Hgb 7.5 L, Hct 24.8 L, MCV 82.9, MCH 25.1 L, MCHC 30.2 L, RDW Std Deviation 53.6 H, RDW Coeff of Festus 17.8 H, Plt Count 185, MPV 10.5, Immature Gran % (Auto) 0.700, Neut % (Auto) 91.6 H, Lymph % (Auto) 4.0 L, Harney % (Auto) 3.2, Eos % (Auto) 0.3, Baso % (Auto) 0.2, Absolute Neuts (auto) 8.6 H, Absolute Lymphs (auto) 0.37 L, Nucleated RBC % 0, Sodium 147 H, Potassium 3.1 L, Chloride 123 H, Carbon Dioxide 17.0 L, Anion Gap 7, BUN 33 H, Creatinine 2.15 H, Estim Creat Clear Calc 16.54, Est GFR (MDRD) Af Amer 29 L, Est GFR (MDRD) Non-Af 24 L, BUN/Creatinine Ratio 15.3, Glucose 101, Calcium 7.8 L, Phosphorus 3.3, Magnesium 1.7 04/21/24 06:10: POC Glucose 93 Microbiology: Microbiology 04/19/24 13:28 Urine, Catheterized Urine Culture - Final ESBL Escherichia coli 04/19/24 10:00 Blood Culture (Wb) - Right Hand Blood Culture - Final ESBL Escherichia coli 04/19/24 10:00 Blood Culture (Wb) - Anticubital Left Blood Culture - Final Gram negative sanjuana D/C Instructions Discharge Diet: No restrictions Discharge Activity: Return to Normal Activity Call your doctor if you observe: Fever of 101 or Higher, Shortness of breath, Fainting spells and Chest pain DC O2, CPAP, BIPAP Needs Home O2 Discharge instructions: No Meaningful Use Info Meaningful Use Meaningful Use Diagnoses (Choose all that apply): None applicable Ischemic Stroke Statin Dosing Therapy Reference: STATIN DOSE THERAPY REFERENCE: * Patients > 75 years receive moderate or high dose statin therapy. * Patients 75 years or YOUNGER should receive HIGH intensity statin dose unless contraindicated. You will be required to document reason for non-treatment if statin daily dose does not meet guidelines. HIGH DOSE STATIN THERAPY DAILY Atorvastatin > than or = to 40 mg Rosuvastatin > than or = to 20 mg Amlodipine + Atorvastatin > than or = to 2.5/40 mg Ezetimibe + Simvastatin 10/80 mg Simvastatin 80mg Discharge Plan Admission Admit Date/Time: 04/19/24 14:03 Attending Provider: Renzo Tavares Primary Care Provider: Toi Ocampo Consulting Providers: Manjit Stephens; Renzo Sharma; Marilu Medina; Kasandra Pepe; Roro Tao; Laurie Lopez HVAC MANAGER; Indira Loyola; Sanam Ramirez Discharge Orders/Prescriptions Prescriptions: Continued levothyroxine 50 MCG tablet 50 mcg PO DAILY metoprolol tartrate 25 MG tablet 25 mg PO BID glipizide 2.5 mg tablet extended release 24hr 2.5 mg PO DAILY Patient Comments: Take 1 tablet by mouth daily with breakfast. Rx Instructions: with breakfast aspirin 81 mg Tablet 81 mg PO DAILY Rx Instructions: INSTRUCTED TO STOP 5 DAYS PRIOR TO OR carbidopa-levodopa 25-100 mg tablet 1.5 tab PO TID Patient Comments: Take 1 and 1/2 tablets by mouth every morning AND 1 and 1/2 tablets every afternoon AND 1 and 1/2 tablets every evening. (8AM, Noon, 4PM).. memantine 10 mg tablet 10 mg PO QHS risperidone 0.5 mg tablet 0.5 mg PO QHS atorvastatin 10 mg tablet 10 mg PO DAILY acetaminophen 325 mg Tablet 650 mg PO Q6H PRN PRN (Reason: Pain 1-10 Or Fever>100.7) Qty: 0 0RF melatonin 3 mg Tablet 3 mg PO QHS PRN PRN (Reason: Insomnia) Qty: 0 0RF nystatin [Nyamyc] 100,000 unit/gram Powder 1 applic topical BID Qty: 0 0RF Protocol: *Topical Application Instructions APPLICATION INSTRUCTIONS: under breasts Daily Fiber (psyllium-aspart) 3 gram Powder In Packet 1 packet PO TID Qty: 0 0RF sennosides-docusate sodium [Stimulant Laxative Plus] 8.6-50 mg Tablet 2 tab PO BID Qty: 0 0RF polyethylene glycol 3350 [Miralax] 17 gram/dose powder 17 g PO DAILY Qty: 119 0RF mirtazapine 30 mg tablet 30 mg PO QHS Referrals / Follow Up: Toi Ocampo MD [Primary Care Provider] - Disposition Disposition (needs filled in before D/C Order can be placed): Hospice in Medical Facility Charges/Coding Visit Charges Inpatient E&M: 47263 Disch Hosp >30min
[2024-04-21 20:33] VITALS: BP 113/60; PULSE 62; RESP 16; TEMP 36.6; O2SAT 96
[2024-04-22 03:20] VITALS: BP 113/53; PULSE 56; RESP 16; TEMP 36.4; O2SAT 94
[2024-04-22 05:32] VITALS: BMI 23.1
--- NOTE | 2024-04-22 05:54 | NURSING ---
Patients family chose to send patient to inpatient hospice when they have a Bed. Tool Keeper tried to get labs and couldn't I told her to not try again because of her current medical situation.
[2024-04-22 07:56] VITALS: O2SAT 93
--- NOTE | 2024-04-22 09:00 | CASEMGMT ---
Discharge Planning [facility] updated that pt will admit to [facility] when bed becomes available. Shirley Perry DC Planning Asst.
[2024-04-22 09:37] VITALS: BP 132/68; PULSE 55; RESP 16; TEMP 36.5; O2SAT 93
--- NOTE | 2024-04-22 10:10 | CASEMGMT ---
Social Work- SW received concerns from nurse that family was having difficulty understanding hospice policies regarding IPU. Explanations have been offered by staff and family reports that staff are not providing accurate information. SW called Judith at Hospice and requested a follow-up call to the family. Judith agreeable to calling. SW appreciative of collaboration and will remain available to follow. Bedside nurse updated. Plan: Hospice IPU; when bed available [facility]LEX[facility] Paredes
--- NOTE | 2024-04-22 10:12 | PN.HOSP_ITS ---
Reason for Visit Reason for Visit: Diagnoses Sepsis, unspecified organism (04/19/24) Encephalopathy, unspecified (04/19/24) Ileus, unspecified (04/19/24) Acute kidney failure, unspecified (04/19/24) Chronic kidney disease, stage 3 unspecified (04/19/24) Urinary tract infection, site not specified (04/19/24) Severe sepsis with septic shock (04/19/24) Infection and inflammatory reaction due to indwelling urethral catheter, initial encounter (04/19/24) Infection and inflammatory reaction due to indwelling ureteral stent, initial encounter (04/19/24) Subjective Subjective Patient seen much more awake and interactive compared to previous day. Patient was accepted for transfer to the inpatient hospice facility awaiting bed available Objective Data Objective Data Vital Signs: Vital Signs Temp Pulse Resp BP Pulse Ox O2 Del Method O2 Flow Rate 97.7 F L 55 L 16 132/68 H 93 Room Air 1 04/22/24 09:37 04/22/24 09:37 04/22/24 09:37 04/22/24 09:37 04/22/24 09:37 04/22/24 09:37 04/20/24 05:00 Oxygen Flow Rate (L/min) 1 Oxygen Delivery Method Room Air Weight: 55.5 kg Body Mass Index (BMI) 23.1 Intake & Output: Intake and Output for Last 24 Hours 04/20/24 04/21/24 04/22/24 23:59 23:59 23:59 Intake Total 1250.09 / 1250.09 0 / 0 0 / 0 Output Total 1150 / 1150 1100 / 1100 200 / 200 Balance 100.09 / 100.09 -1100 / -1100 -200 / -200 Lab / Micro Data 04/21/24 05:12 04/21/24 05:12 Micro: Microbiology 04/19/24 13:28 Urine, Catheterized Urine Culture - Final ESBL Escherichia coli 04/19/24 10:00 Blood Culture (Wb) - Right Hand Blood Culture - Final ESBL Escherichia coli 04/19/24 10:00 Blood Culture (Wb) - Anticubital Left Blood Culture - Final Gram negative sanjuana Physical Exam Narrative GENERAL: in no apparent distress HEENT: Atraumatic; normocephalic EYES; Anicteric, Normal Conjunctiva NECK; supple, normal thyroid, RESPIRATORY: Diminished to auscultation CARDIOVASCULAR: Regular S1 S2, GI: soft, normoactive bowel sounds, : No Renal angle tenderness; EXTREMITIES: No edema, no clubbing, MUSCULOSKELETAL: no muscle wasting NEURO: no lateralizing signs. SKIN: No Rash PSYCH; Flat affect Assessment & Plan Assessment/Plan (1) Infection associated with indwelling ureteral stent: (2) CKD (chronic kidney disease), stage III: (3) Catheter-associated urinary tract infection: PLAN: Plan Patient is a 78-year-old lady resident at [facility] was sent to the ED by the PCP on account of leukocytosis hypotension with history of previous UTI. An assessment of septic shock made admitted to the intensive care unit treatment initiated per protocol 1. Septic shock ? Secondary to catheter associated urinary tract infection and ESBL E. coli. Imaging studies obtained on admission bilateral hydroureteronephrosis with presence of right ureteral stent. Antibiotics were initiated per protocol patient resuscitated with IV fluids and patient started on pressors admitted to the intensive care unit. Cultures obtained on admission. So far positive for gram-negative rods with colony count of 50K-[id number]. Final identification and sensitivities pending ? 04/21/2024 patient final cultures came back positive for ESBL E. coli patient remains on appropriate antibiotic therapy 2. Acute metabolic encephalopathy ? Secondary to above we will expect improvement with treatment of underlying clinical condition ? 04/22/2024; patient appears to be back to baseline awaiting transfer to an inpatient hospice facility pending availability 3. Bilateral hydronephrosis ? With previous bilateral indwelling ureteral stent placement. ? Consult was placed to urologDr. Ramirez plan is for patient to undergo urological intervention with changing of his stents. ? 04/21/2024; patient's family ambulating with proceeding with any surgical intervention given the fact that her CODE STATUS has been changed to DNR CC with hospice consulted 4. Chronic kidney disease stage IV There appears to be gradual worsening of patient kidney function since the middle of last year. Patient current baseline creatinine is around 2. 5. Anemia ? Secondary to chronic disorder monitoring H&H and transfuse if patient becomes symptomatic or hemoglobin falls below 7 6. Diabetes mellitus type 2 ? Patient is on glipizide held placed on Accu-Cheks before meals and at bedtime with sliding scale coverage as well as long-acting insulin 7. Parkinson's disease ? Patient is on carbidopa levodopa did contain 8. Hypothyroidism ? Patient is on levothyroxine home dose continued 9. Coronary artery disease ? With previous CABG patient is on antiplatelet therapy with aspirin as well as statin therapy and beta-blockers 10. Essential hypertension ? Patient antihypertensives currently being held given her presentation 11. Dyslipidemia ?Patient is on statin therapy, continued at home dose 12. Mild cognitive impairment ? Patient is on Namenda plan is to continue 13. Depression/anxiety Patient is on risperidone 14. DVT prophylaxis -Continue subcu heparin Abdomen/Pelvis CT 04/19/24 10:10 IMPRESSION: 1. Status post bilateral double-J stent catheters new since previous examination. 2. Bilateral hydronephrosis and postoperative previous exam. 3. Pockets of air in the right pelvicalyceal system could be secondary to the presence of stent. Otherwise infectious process cannot be excluded. 4. Nonspecific fluid-filled small bowel loops and ascending colon could be due to ileus. 5. Gallstones. 6. Atelectatic changes in the lower lungs and trace of left pleural effusion. Time spent in the patient's overall evaluation,decision-making process, review of diagnostic data, adjustment of management, discussion with other providers, nursing nursing and ancillary staff involved in patient's care documentation, 36 minutes Charges/Coding Visit Charges Inpatient E&M: 20641 Subs Hosp L2
[2024-04-22] MEDS: Nystatin Powder 15gm Bottle 1 APPLIC TOPICAL (10:22)
[2024-04-22] MEDS: Carbidopa/Levodopa 25/100 Tablet PO (12:41)
[2024-04-22 12:50] VITALS: BP 108/48; PULSE 62; RESP 16; TEMP 36.4; O2SAT 94
--- NOTE | 2024-04-22 13:27 | CASEMGMT ---
Social Work- VENESSA received a call from Judith at Hospice who reports she had a great conversation with the family, who remains agreeable to hospice. Judith reports that a bed has become available and the room is being cleaned; once completed, transport will be arranged and VENESSA notified. VENESSA updated charge nurse and bedside nurse. VENESSA remains available to follow. Plan: [facility] Pared[facility]
--- NOTE | 2024-04-22 13:40 | CHAPLAIN ---
Type of Pastoral Visit ___ Initial Visit _x__ Follow-up Visit ___ On-call Visit ___ General Patient Visit ___ Spiritual Assessment ___ Family Conference ___ Bereavement ___ Rapid Response ___ Code Blue ___ Other (describe below) Pastoral Care Referral From ___ Patient ___ Family ___ Nurse ___ Physician ___ Wireless Engineer ___ Distributing Clerk ___ Other (describe below) Sacrament/Intervention ___ Active listening ___ Anointing ___ Scientology ___ Bereavement ___ Communion ___ Debora exploration ___ ___ Life review ___ Prayer ___ Reconciliation ___ Sacrament of Sick ___ Supportive presence ___ Wedding _x__ Other (describe below) Pastoral Comments patient is sleeping and unresponsive to her name; gave silent prayer and left a calling card; no one else is present with her
== END 2024-04-22 16:00 | disposition hospice, inpatient (51) | DRG 698 ==
LOC: ED 10:49 → ICU 13:49 → MS3 04-20 17:21
PROVIDERS: Emergency Provider Emergency Medicine; Visit Provider Internal Medicine
DX: T83.511A Infection and inflammatory reaction due to indwelling urethral catheter, initial encounter (principal); A41.9 Sepsis, unspecified organism; R65.21 Severe sepsis with septic shock; G92.8 Other toxic encephalopathy; G93.41 Metabolic encephalopathy; E87.20 Acidosis, unspecified; K56.7 Ileus, unspecified; N13.6 Pyonephrosis; N18.4 Chronic kidney disease, stage 4 (severe); N17.9 Acute kidney failure, unspecified; Z51.5 Encounter for palliative care; G20.A1 Parkinson's disease without dyskinesia, without mention of fluctuations; E11.22 Type 2 diabetes mellitus with diabetic chronic kidney disease; F02.80 Dementia in other diseases classified elsewhere, unspecified severity, without behavioral disturbance, psychotic disturbance, mood disturbance, and anxiety; E03.9 Hypothyroidism, unspecified; I12.9 Hypertensive chronic kidney disease with stage 1 through stage 4 chronic kidney disease, or unspecified chronic kidney disease; F32.A Depression, unspecified; E78.5 Hyperlipidemia, unspecified; I25.10 Atherosclerotic heart disease of native coronary artery without angina pectoris; K80.20 Calculus of gallbladder without cholecystitis without obstruction; I25.2 Old myocardial infarction; Z66 Do not resuscitate; Z79.01 Long term (current) use of anticoagulants; Z79.84 Long term (current) use of oral hypoglycemic drugs; Z87.891 Personal history of nicotine dependence; B96.20 Unspecified Escherichia coli [E. coli] as the cause of diseases classified elsewhere; Z86.73 Personal history of transient ischemic attack (TIA), and cerebral infarction without residual deficits; Y82.9 Unspecified medical devices associated with adverse incidents
CPT/HCPCS: 36415; 71045; 74176; 80048; 80053; 81001; 82962; 83605; 83735; 84100; 84443; 84484; 85025; 85027; 85610; 85730; 86850; 86900; 86901; 87040; 87077; 87086; 87088; 87186; 93005; 94762; 97802; 99285; A4216

== ENCOUNTER → 2024-04-19 | Outpatient (REF) | payer MEDICARE, MEDICAID, SELFPAY ==
[2024-04-19 08:25] LABS: Hematocrit 34.2 % (37-47); Hemoglobin 10.8 g/dL (12.0-15.0); Mean Corp Hgb Conc 31.6 g/dL (32-36); Mean Corpuscular Hgb 25.8 pg (27.0-32.0); Mean Corpuscular Volume 81.6 fL (81-99); Mean Platelet Vol. 11.2 fl (6.2-12.0); POSITIVE COUNT YES; Platelet Count 353 K/mm3 (150-450); RBC Distribution Width CV 17.6 % (11.6-14.6); RBC Distribution Width SD 50.9 fl (35.1-43.9); Red Blood Count 4.19 M/mm3 (4.2-5.4)
[2024-04-19 08:31] LABS: Scan Indicated on CBC? Y/N YES- FLAGS NOTED; White Blood Count 32.1 K/mm3 (4.4-11.0)
[2024-04-19 08:53] LABS: Anion Gap 9 (5-15); BUN 29 mg/dL (7-18); BUN/Creat Ratio 12.1 RATIO (10-20); Calcium,Total 8.7 mg/dL (8.5-10.1); Chloride 104 mmol/L (98-107); Creatinine, Serum 2.39 mg/dL (0.55-1.02); EST Glomerular Filtration Rate 21 mL/min (>60); Est Glom Filt Rate - Afr Amer 25 mL/min (>60); Glucose 210 mg/dL (74-106); Potassium 4.6 mmol/L (3.5-5.1); Sodium Level 134 mmol/L (136-145)
[2024-04-19 14:00] LABS: Pathologist Review Reviewed
== END ==
LOC: OLS.WCC 05:00
PROVIDERS: Visit Provider Family Medicine
DX: I12.9 Hypertensive chronic kidney disease with stage 1 through stage 4 chronic kidney disease, or unspecified chronic kidney disease (principal); N18.31 Chronic kidney disease, stage 3a; N13.2 Hydronephrosis with renal and ureteral calculous obstruction; D63.1 Anemia in chronic kidney disease; E87.6 Hypokalemia
CPT/HCPCS: 36415; 80048; 84443; 85027